=== PATIENT | male | born 1965 | race African-American/Black ===

== ENCOUNTER 2017-12-04 12:39 | Inpatient (IN) | payer MEDICARE, MEDICAID ==
[~2017-12-04] VITALS: Ht 180.3 cm; Wt 84.6 kg
[2017-12-04 13:30] VITALS: BP 122/80
[2017-12-04] MEDS ORDERED: NORVASC5 MG ORAL (14:48)
[2017-12-04] MEDS ORDERED: NORVASC10 MG ORAL (14:48)
[2017-12-04] MEDS ORDERED: LIPITOR80 MG ORAL (14:52)
[2017-12-04] MEDS ORDERED: ASPIRIN81 MG ORAL (14:52)
[2017-12-04] MEDS ORDERED: PRAVASTATIN SOD20 M1 ORAL (15:01)
[2017-12-04] MEDS ORDERED: LEXAPRO10 MG ORAL (15:01)
[2017-12-04] MEDS ORDERED: SENSIPAR30 MG ORAL (15:01)
[2017-12-04] MEDS ORDERED: ISOSORBIDE MONO30 M1 PO (15:01)
[2017-12-04] MEDS ORDERED: VELPHORO500 MG PO ×2 (15:01→15:19)
[2017-12-04] MEDS ORDERED: RENVELA0.8 GM ORAL (15:01)
[2017-12-04] MEDS ORDERED: NEOMYC-POLYM-DEX5 ML OP (15:01)
[2017-12-04] MEDS ORDERED: HYDRALAZINE HCL50 MG ORAL (15:01)
[2017-12-04] MEDS ORDERED: METOPROLOL TAR100 MG ORAL (15:01)
[2017-12-04] MEDS ORDERED: DIOVAN160 MG ORAL (15:01)
[2017-12-04] MEDS ORDERED: METOPROLOL SUC100 MG ORAL (15:01)
[2017-12-04] MEDS ORDERED: PROMETH-CODEIN 65 ML PO (15:10)
--- NOTE | 2017-12-04 15:14 | Infectious Diseases Prog Note ---
Assessment/Plan Problems: (1) Ulcer of amputation stump of foot Assessment & Plan: with pus draining suspect infection with possible underlying osteomyelitis, will order MRI of the right foot to confirm, and send wound draining for culture (2) 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 Assessment & Plan: with open wound draining purulent materials , and possible underlying osteomyelitis , will send wound culture and order MRI of the right foot to confirm, will start vancomycin and zosyn empiric coverage pending bridge expert eval and culture results (3) Sepsis Assessment & Plan: due to the above , efrain start vancomycin and zosyn empirically pending culture (4) ESRD (end stage renal disease) Assessment & Plan: continue HD as per renal Subjective Allergies: Coded Allergies: NO KNOWN ALLERGIES (Verified Allergy, Unknown, 12/04/17) Objective Vital Signs Last 24 Hour Vital Signs Date Time Temp Pulse Resp B/P (MAP) Pulse Ox O2 Delivery O2 Flow Rate FiO2 12/04/17 13:30 97.9 95 19 122/80 (94) 94 97.9 Cira Ceja M.D. Dec 04, 2017 15:14
[2017-12-04] MEDS ORDERED: Milk of Magnesia 30ml Ud ORAL PRN (15:15)
[2017-12-04] MEDS ORDERED: Miralax 17gm pkt ORAL PRN (15:15)
[2017-12-04] MEDS ORDERED: Nitroglycerin Subl 0.4mg tab SL PRN (15:15)
--- NOTE | 2017-12-04 15:15 | History & Physical ---
History and Physical History & Physicial Shahram Duong MD Dec 04, 2017 15:15
[2017-12-04 15:34] LABS: BASOPHILS % (AUTO) 0.9 % (0.0-2.0); EOSINOPHILS % (AUTO) 0.7 % (0.0-3.0); HEMATOCRIT 44.4 % (42.0-52.0); HEMOGLOBIN 14.5 G/DL (14.2-18.0); LYMPHOCYTES % (AUTO) 21.5 % (20.0-45.0); MEAN CORPUSCULAR VOLUME 97 FL (80-99); MONOCYTES % (AUTO) 9.3 % (1.0-10.0); NEUTROPHILS % (AUTO) 67.6 % (45.0-75.0); PLATELET COUNT 207 K/UL (150-450); RED BLOOD COUNT 4.58 M/UL (4.70-6.10); RED CELL DISTRIBUTION WIDTH 15.4 % (11.6-14.8); WHITE BLOOD COUNT 8.2 K/UL (4.8-10.8)
[2017-12-04 15:54] LABS: ALANINE AMINOTRANSFERASE 43 U/L (12-78); ALBUMIN 3.7 G/DL (3.4-5.0); ALBUMIN/GLOBULIN RATIO 0.6 (1.0-2.7); ALKALINE PHOSPHATASE 154 U/L (46-116); ANION GAP 14 mmol/L (5-15); ASPARTATE AMINO TRANSFERASE 28 U/L (15-37); BILIRUBIN,TOTAL 0.7 MG/DL (0.2-1.0); BLOOD UREA NITROGEN 48 mg/dL (7-18); CALCIUM 9.3 MG/DL (8.5-10.1); CARBON DIOXIDE 29 MMOL/L (21-32); CHLORIDE 91 MMOL/L (98-107); CREATININE 8.4 MG/DL (0.55-1.30); POTASSIUM 3.9 MMOL/L (3.5-5.1); SODIUM 134 MMOL/L (136-145)
[2017-12-04 16:00] VITALS: BP 113/78
--- NOTE | 2017-12-04 17:30 | Consultation ---
DATE OF CONSULTATION: 12/04/2017 INFECTIOUS DISEASE CONSULTATION CONSULTING PHYSICIAN: Cira Ceja M.D. REQUESTING PHYSICIAN: Shahram Duong M.D. REASON FOR CONSULTATION: Right foot stump wound ulcer with infection and pus draining, possible underlying osteomyelitis and sepsis. Recommendation for antibiotics treatment and further management. HISTORY OF PRESENT ILLNESS: The patient is a 52-year-old male with past medical history of diabetes type 2, poorly controlled, end-stage renal disease, on hemodialysis, gastritis, history of CVA, hemorrhagic esophagitis, and upper GI bleeding presented to [facility] with the right foot amputation stump wound ulcer draining pus with possible underlying osteomyelitis and sepsis. The patient was recently seen at [facility], unclear whether he received antibiotics treatment or not at that time, but he was transferred to [facility] for further care and evaluation since the patient was altered and febrile when he was admitted at [facility]. The patient today is more awake, alert and comprehensive, but he does not remember what happened and why he was taken to [facility] recently. He remember having fever, but denied any headache, blurry vision or neck stiffness. No cough or phlegm, but shortness of breath. No chest pain. No nausea, vomiting, or diarrhea. He has right foot stump wound, which has been draining pus like material. The patient was admitted to the hospital for further evaluation and Infectious Disease consult was requested for antibiotics treatment and further management for his right foot stump wound infection. PAST MEDICAL HISTORY: Significant for hemorrhagic esophagitis, history of CVA, gastritis, duodenitis, end-stage renal disease, on hemodialysis, diabetes type 2, and upper GI bleeding. PAST SURGICAL HISTORY: He had right arm AV fistula creation and history of right metatarsal foot amputation in 01/2015. ALLERGIES: He has no known drug allergy. MEDICATIONS: Prior to admission he has been on metoprolol, amlodipine, aspirin, cinacalcet, hydralazine, insulin glargine, insulin lispro, isosorbide mononitrate, pravastatin and sucroferric oxyhydroxide. SOCIAL HISTORY: He is single. Denied using any drugs, tobacco, or alcohol. He has 7 children. He is disabled. FAMILY HISTORY: Significant for diabetes in his father, mother and sister. Kidney failure in his mother. REVIEW OF SYSTEMS: A 14-point of system reviewed were all negative apart from the one I mentioned above in my History and Physical. PHYSICAL EXAMINATION: GENERAL: A middle-aged male, up in bed, awake, alert, oriented x2, not in acute distress. VITAL SIGNS: Temperature 97.9 degrees, pulse 95, respiration 19, blood pressure 122/80 and saturation 94% on room air. HEENT: Normocephalic and atraumatic. Pupils are reactive to light equally. Moist oral mucosa. No exudate or thrush. NECK: Supple. No lymphadenopathy. CARDIOVASCULAR: Regular rate and rhythm. No murmur or gallop. LUNGS: Clear bilaterally. No wheezing or rhonchi. Diminished breathing sounds at the bases. ABDOMEN: Soft, nontender, nondistended. Normal bowel sounds. No hepatosplenomegaly or ascites. EXTREMITY: He has right upper arm fistula with good pulsation. Left upper arm old surgical scar due to previous AV fistula in the past. Right foot metatarsal amputation with surgical wound stump open in the middle with an ulcer draining pus like material with local tenderness. LABORATORY AND DIAGNOSTIC DATA: Labs, currently not available. Images not available. ASSESSMENT AND RECOMMENDATION: 1. Ulcer of the right foot amputation stump with pus draining, suspect infection with possible underlying osteomyelitis of the metatarsal bone. We will order MRI of the right foot to confirm and send wound drainage for culture. We will start the patient on vancomycin and Zosyn empiric coverage. We will order sedimentation rate and C-reactive protein. 2. Infection of the amputation stump of the right lower extremity with open wound draining purulent materials with possible underlying osteomyelitis. We will send wound culture and order MRI of the right foot to confirm. We will start vancomycin and Zosyn empiric coverage pending bass viol repairer evaluation and culture result, may need incision and drainage or maybe more amputation if he has more damage in the bone. 3. Sepsis due to the above. We will start vancomycin and Zosyn empiric coverage pending culture. 4. End-stage renal disease. Continue hemodialysis as per Renal. 5. Diabetes. Recommend tight glycemic control to keep blood glucose between 100 to 140. Thank you for the consult. ID will continue to follow. Please feel free to call with any question. Cira Ceja M.D. DR: PIERRE JOB#: [id number] CC:
[2017-12-04] MEDS: NovoLOG Insulin Flexpen SUBQ SCH ×2 (17:57→20:40)
--- NOTE | 2017-12-04 19:45 | History and Physical Report ---
DATE OF ADMISSION: 12/04/2017 CHIEF COMPLAINT: Altered mental status. HISTORY OF PRESENT ILLNESS: This is a 52 years old, very delightful, gentleman with past medical history significant for poorly controlled diabetes type 2, history of osteomyelitis of the foot with transmetatarsal amputation of the right lower extremity, history of end-stage renal disease on hemodialysis, renal cell carcinoma, status post the left nephrectomy, and peripheral vascular disease, who presented to the hospital initially at [facility]. The patient was noted to be altered than usual. He is usually getting his dialysis Tuesday, , Tuesday and he was found to be weak and confused. He called his sister, Roshni around 3 o'clock in the morning. He stated that he was not feeling well. Her went to check on him at home and was noted to be apparently confused. Ambulance was called in and the patient was subsequently transferred to [facility]. Shortly after initial evaluation in the emergency, the patient had a CT of the head, was unremarkable. Chest x-ray was unremarkable. The patient received vancomycin and Zosyn and subsequently, the patient was treated for presumably sepsis and was transferred to the [facility] for further evaluation and therapy. PAST MEDICAL HISTORY/PAST SURGICAL HISTORY: As above. History of upper GI bleed on 01/13/2015, history of poorly diagnosed diabetes type 2 with end-stage renal disease, on hemodialysis, history of gastritis, duodenitis, H. pylori positive, prior history of stroke in 2011, hemorrhagic esophagitis, history of renal cell carcinoma, status post left nephrectomy, prior history of osteomyelitis of the foot with transmetatarsal amputation of the right foot. He has a history of osteomyelitis of the right fifth ray partial amputation, hypertension, dyslipidemia, and history of fistula creation on the right upper extremity. MEDICATIONS: The patient's medications at home significant for Toprol-XL, Norvasc, Ecotrin, Sensipar, hydralazine, Lantus insulin 20 units, Humalog insulin 8 units three times a day, Imdur one tablet daily, Atorvastatin 40 mg daily, and sucroferric oxyhydroxide 1000 mg three times a day. ALLERGIES: No known drug allergies. SOCIAL HISTORY: The patient is a former smoker, quit on 01/13/2015. No substance abuse, occasional marijuana, stopped in December 2014. FAMILY HISTORY: Including accidental in his daughter, diabetes in father, mother, and sister, kidney failure in mother. No other significant disease. REVIEW OF SYSTEMS: Very limited secondary to the patient's status. The patient is altered. However, denies any fever or chills. Denies any hematuria. Denies any hemoptysis. Denies any suicidal or homicidal ideation. Denies any double vision. PHYSICAL EXAMINATION: VITAL SIGNS: On admission from the [facility], blood pressure 122/89, pulse of 102, respirations 20, and temperature 98.9 degrees. GENERAL: The patient is awake, responsive at this time, very lethargic. He just received a dose of Ativan in the ER because he was very combative. HEAD AND NECK: Pupils are equal and reactive to light. Anicteric. Neck was supple. No JVD. LUNGS: Good air entry. No wheezing or rales. Poor inspiratory effort. HEART: S1 and S2. Distant heart sounds. No murmur or gallop. ABDOMEN: Soft, nondistended, and nontender. Positive bowel sounds. EXTREMITIES: No cyanosis, clubbing, or edema. Right upper extremity has AV fistula functional and right lower extremity has transmetatarsal amputation. No sign of infection or sore. NEUROLOGIC: Cranial nerves II through XII grossly intact. The patient moving all the extremities spontaneously. However, was not able to assess in depth because of the patient's status. Gait was not able to assess. LABORATORY AND DIAGNOSTIC DATA: On admission, WBC of 7.8, hemoglobin 14, hematocrit 44, and platelets 190,000. Sodium 131, potassium 4.0, chloride is 85, bicarbonate 25, BUN is 41, creatinine is 7.13, troponin is 0.08, glucose is 354, magnesium 2.3, calcium is 9.6, and lactic acid is 3.6. Alkaline phosphatase of 132 and ALT of 42. Total bilirubin of 0.8. Atenolol level of less than 10. The patient had a CT of the chest and head as per reading, undetectable. ASSESSMENT: 1. Altered mental status most likely secondary to the underlying infection. 2. Hyperglycemia. 3. Lactic acidosis. 4. End-stage renal disease, on hemodialysis. 5. Hypertension. 6. Diabetes type 2, uncontrolled. 7. Diabetic nephropathy. 8. Diabetic polyneuropathy. 9. Severe peripheral vascular disease. 10. History of hypertensive urgency. PLAN: Admit the patient to telemetry. We will follow up with the laboratory. The patient is mildly dehydrated, already received 500 mL of fluid at the [facility]. We will follow up with the cultures. Broad-spectrum antibiotics with vancomycin and the patient has already received Zosyn. We will follow up with the Infectious Diseases consultation, Dr. Ceja, Nephrology consultation, Dr. Tessa Schwartz, Cardiology consultation with Dr. Lizandro Falcon, and the Pulmonary consultation with Dr. Anaya. We will follow up with the Podiatry consultation with Dr. Lane. Code status Full Code. DVT prophylaxis. Heparin subcutaneous. Shahram Duong M.D. DR: Elba JOB#: [id number] CC:
[2017-12-04 20:00] VITALS: BP 117/60
[2017-12-04] MEDS: Docusate 100mg cap ORAL SCH (20:36)
[2017-12-04] MEDS ORDERED: Levemir Flexpen SUBQ SCH (21:00)
[2017-12-04] MEDS: Piperacillin/Tazobactam 2.25 GM in D5W 55 ML IVPB SCH (21:44)
[2017-12-04] MEDS: Heparin 5000 units/ml inj SUBQ SCH (21:44)
--- NOTE | 2017-12-04 21:44 | Nephrology Progress Note ---
Assessment/Plan Plan dialysis and necessary lab was order thanks Objective Objective Last 24 Hour Vital Signs Date Time Temp Pulse Resp B/P (MAP) Pulse Ox O2 Delivery O2 Flow Rate FiO2 12/04/17 20:36 106 117/60 12/04/17 16:00 105 12/04/17 16:00 97.7 105 18 113/78 (90) 100 97.7 12/04/17 14:41 Room Air 12/04/17 13:30 97.9 95 19 122/80 (94) 94 97.9 Laboratory Tests 12/04/17 15:15: White Blood Count 8.2, Red Blood Count 4.58L, Hemoglobin 14.5, Hematocrit 44.4, Mean Corpuscular Volume 97, Mean Corpuscular Hemoglobin 31.7H, Mean Corpuscular Hemoglobin Concent 32.7, Red Cell Distribution Width 15.4H, Platelet Count 207, Mean Platelet Volume 7.3, Neutrophils (%) (Auto) 67.6, Lymphocytes (%) (Auto) 21.5, Monocytes (%) (Auto) 9.3, Eosinophils (%) (Auto) 0.7, Basophils (%) (Auto ) 0.9, Erythrocyte Sedimentation Rate 32H, Sodium Level 134L, Potassium Level 3.9, Chloride Level 91L, Carbon Dioxide Level 29, Anion Gap 14, Blood Urea Nitrogen 48H, Creatinine 8.4H, Estimat Glomerular Filtration Rate 8.2, Glucose Level 236H, Calcium Level 9.3, Total Bilirubin 0.7, Aspartate Amino Transf (AST/ SGOT) 28, Alanine Aminotransferase (ALT/SGPT) 43, Alkaline Phosphatase 154H, C- Reactive Protein, Quantitative 2.8H, Total Protein 9.6H, Albumin 3.7, Globulin 5.9, Albumin/Globulin Ratio 0.6L Height (Feet): 5 Height (Inches): 11.00 Weight (Pounds): 182 Tessa Schwartz MD Dec 04, 2017 21:44
--- NOTE | 2017-12-04 23:45 | Consultation ---
DATE OF CONSULTATION: 12/04/2017 NEPHROLOGY CONSULTATION CONSULTING PHYSICIAN: Tessa Schwartz M.D. REFERRING PHYSICIAN: Shahram Duong M.D. REASON FOR CONSULTATION: End-stage renal disease, need for dialysis. HISTORY OF PRESENT ILLNESS: The patient is a 52-year-old male with past medical history significant for history of end-stage renal disease, anemia of chronic kidney disease, renal osteodystrophy, hypertension, diabetes, diabetic neuropathy, peripheral vascular disease, status post transmetatarsal amputation of the right lower extremity, and history of renal cell carcinoma, status post left nephrectomy. He was presented originally to [facility] for altered mental status. Also, the patient was found to be confused, weak, and also found to have drainage of the foot stump with drainage of the pus from the foot stump. He was taken to [place], started on broad-spectrum antibiotic. The patient also had a CT of the head, which was negative. The patient was consequently admitted for further evaluation and treatment at [facility]. I was called for management of renal disease and electrolyte imbalance. PAST MEDICAL HISTORY: Includin. End-stage renal disease. 2. Anemia of chronic kidney disease. 3. Renal osteodystrophy. 4. History of gastritis and GI bleed in 2014. 5. History of renal cell carcinoma, status post left nephrectomy. 6. History of osteomyelitis of the fourth metatarsal. 7. History of transmetatarsal amputation of the right foot. 8. History of partial amputation of the fifth toe. 9. History of hypertension. 10. History of dyslipidemia. 11. History of CVA. 12. History of fistula placement. 13. History of catheter placement. MEDICATIONS: At home are includin. Toprol-XL. 2. Norvasc. 3. Aspirin. 4. Sensipar. 5. Hydralazine. 6. Insulin. 7. Atorvastatin 40 mg daily. 8. Iron sulfate daily. ALLERGIES: No known drug allergies. SOCIAL HISTORY: Former smoker, quit in 2014. There is no current history of drug or alcohol use. FAMILY HISTORY: Diabetes in mother, father, and sister. History of kidney failure in the mother. REVIEW OF SYSTEMS: GENERAL: The patient with fever noted prior to hospital visit. No chills. No night sweats. HEAD AND NECK: No dysphagia, odynophagia, or blurry vision. PULMONARY: No shortness of breath was noted or cough. CARDIOVASCULAR: No palpitation or chest pain. GASTROINTESTINAL: No nausea. No vomiting. GENITOURINARY: No dysuria, frequency, or hematuria. PHYSICAL EXAMINATION: VITAL SIGNS: The patient had temperature of 98 degrees, blood pressure 122/89, pulse rate of 102, respiratory rate of 20. HEAD AND NECK: No JVP. No LAD. No thyromegaly. Extraocular movement intact. Pupils are reactive to light and accommodation. LUNGS: Clear to auscultation. CARDIAC: Regular rate and rhythm. S1 and S2. No murmur. No rub. ABDOMEN: Soft, nontender, and nondistended. EXTREMITIES: The patient on the right has transmetatarsal amputation. LABORATORY AND DIAGNOSTIC DATA: Laboratory value on admission, the patient has WBC count of 7.1, hemoglobin 14, hematocrit of 44, and platelet count of 190,000. Chemistry revealed sodium 131, potassium 4, chloride 85, bicarbonate 25, BUN 41, creatinine of 7. Troponin is negative. CT of the head was negative. ASSESSMENT: 1. Altered mental status. 2. End-stage renal disease. 3. Anemia of chronic kidney disease. 4. Renal osteodystrophy. 5. Hypertension, well controlled. 6. Diabetes. PLAN: Plan for this patient is to dialyze the patient on Tuesday. The patient at this time does need Epogen and Epogen needs to be hold off due to hemoglobin being . We will need to check calcium, phosphorus, PTH level for evaluation of renal osteodystrophy monitoring the patient closely. Again, I would like to thank Dr. Duong for allowing me to participate in the care of this patient. Tessa Schwartz M.D. DR: Clifford JOB#: [id number] CC:
[2017-12-05] VITALS: BP 112/71
[2017-12-05 04:00] VITALS: BP 98/66
[2017-12-05] MEDS: Piperacillin/Tazobactam 2.25 GM in D5W 55 ML IVPB SCH ×3 (05:30→21:27)
[2017-12-05] MEDS: NovoLOG Insulin Flexpen SUBQ SCH ×4 (05:51→21:17)
[2017-12-05] MEDS: Heparin 5000 units/ml inj SUBQ SCH ×3 (05:51→21:26)
[2017-12-05 08:00] VITALS: BP 92/53
[2017-12-05] MEDS ORDERED: Imdur 30mg tab ORAL SCH (09:00)
[2017-12-05] MEDS ORDERED: Aspirin Baby 81mg ORAL SCH (09:00)
[2017-12-05] MEDS ORDERED: Sensipar 30mg Tab ORAL SCH (09:00)
[2017-12-05 09:23] LABS: PHOSPHORUS 6.9 MG/DL (2.5-4.9)
[2017-12-05] MEDS: Docusate 100mg cap ORAL SCH ×2 (09:37→21:00)
--- NOTE | 2017-12-05 11:02 | Consultation ---
History of Present Illness General Date patient seen: Dec 05, 2017 Present Illness HPI 52 year old male with hx of ESRF, Right foot partial amputation, DM, was taken to [facility] with CC of ALOC, an acute CVA was ruled out and pt was transferred to [facility] for further management. Pt has a wound on the stump of right foot with puss drainage. A MRI is taken to rule out osteomyelitis. Pt is asymptomatic now. Allergies: Coded Allergies: NO KNOWN ALLERGIES (Verified Allergy, Unknown, 12/04/17) Medication History Scheduled Amlodipine Besylate (Norvasc), 5 MG ORAL DAILY, (Reported) Amlodipine Besylate (Norvasc), 10 MG ORAL DAILY, (Reported) Aspirin* (Aspirin*), 81 MG ORAL DAILY, (Reported) Atorvastatin (Lipitor), 10 MG ORAL BEDTIME, (Reported) Escitalopram Oxalate* (Lexapro*), 10 MG ORAL DAILY, (Reported) Hydralazine Hcl* (Hydralazine Hcl*), 50 MG ORAL EVERY 8 HOURS, (Reported) Metoprolol Succinate* (Metoprolol Succinate*), 200 MG ORAL DAILY, (Reported) Metoprolol Tartrate* (Metoprolol Tartrate*), 100 MG ORAL EVERY 12 HOURS, ( Reported) Pravastatin Sod* (Pravastatin Sod*), 40 MG ORAL BEDTIME, (Reported) Sevelamer Carbonate* (Renvela*), 800 MG ORAL THREE TIMES A DAY, (Reported) Valsartan (Diovan), 160 MG ORAL DAILY, (Reported) Miscellaneous Medications Isosorbide Mononitrate (Isosorbide Mononitrate Er), 30 MG PO, (Reported) Robinson/Polymyx B Sulf/Dexameth (Zboscf-Nmrlp-Xmtrhzgc Eye Drop), 3.5 ML OP, ( Reported) Promethazine HCl/Codeine (Prometh-Codein 6.25-10 mg/5 ml), 5 ML PO, (Reported) Sucroferric Oxyhydroxide (Velphoro), 500 MG PO, (Reported) Sucroferric Oxyhydroxide (Velphoro), 500 MG PO, (Reported) Patient History Healthcare decision maker Roshni Pagan Resuscitation status Full Code Advanced Directive on File Roshni Pagan Past Medical/Surgical History Past Medical/Surgical History: (1) ESRD (end stage renal disease) (2) Ulcer of amputation stump of foot Review of Systems All Other Systems: negative except mentioned in HPI Physical Exam General Appearance: WD/WN Lines, tubes and drains: peripheral HEENT: normocephalic Neck: non-tender, normal alignment Respiratory/Chest: chest wall non-tender, lungs clear Cardiovascular/Chest: normal peripheral pulses, normal rate Abdomen: normal bowel sounds, non tender Extremities: normal range of motion Skin Exam: normal pigmentation 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 Last 24 Hour Vital Signs Date Time Temp Pulse Resp B/P (MAP) Pulse Ox O2 Delivery O2 Flow Rate FiO2 12/05/17 09:00 Room Air 12/05/17 08:50 82 92/53 12/05/17 08:50 92/53 12/05/17 08:50 82 92/53 12/05/17 08:00 97.5 82 18 92/53 (66) 97 97.5 12/05/17 08:00 81 12/05/17 04:01 76 12/05/17 04:00 97.2 74 20 98/66 (77) 100 97.2 12/05/17 00:00 98.4 90 20 112/71 (85) 100 98.4 12/04/17 23:34 89 12/04/17 21:00 Room Air 12/04/17 20:36 106 117/60 12/04/17 20:00 98.1 106 20 117/60 (79) 96 98.1 12/04/17 19:04 110 12/04/17 16:00 105 12/04/17 16:00 97.7 105 18 113/78 (90) 100 97.7 12/04/17 14:41 Room Air 12/04/17 13:30 97.9 95 19 122/80 (94) 94 97.9 Intake and Output 12/04/17 12/05/17 19:00 07:00 Intake Total 240 ml 120 ml Output Total 0 ml 0 ml Balance 240 ml 120 ml Intake Oral 240 ml 120 ml Output Urine Total 0 ml 0 ml Laboratory Tests Test 12/04/17 15:15 12/05/17 07:15 White Blood Count 8.2 K/UL (4.8-10.8) Red Blood Count 4.58 M/UL (4.70-6.10) L Hemoglobin 14.5 G/DL (14.2-18.0) Hematocrit 44.4 % (42.0-52.0) Mean Corpuscular Volume 97 FL (80-99) Mean Corpuscular Hemoglobin 31.7 PG (27.0-31.0) H Mean Corpuscular Hemoglobin Concent 32.7 G/DL (32.0-36.0) Red Cell Distribution Width 15.4 % (11.6-14.8) H Platelet Count 207 K/UL (150-450) Mean Platelet Volume 7.3 FL (6.5-10.1) Neutrophils (%) (Auto) 67.6 % (45.0-75.0) Lymphocytes (%) (Auto) 21.5 % (20.0-45.0) Monocytes (%) (Auto) 9.3 % (1.0-10.0) Eosinophils (%) (Auto) 0.7 % (0.0-3.0) Basophils (%) (Auto) 0.9 % (0.0-2.0) Erythrocyte Sedimentation Rate 32 MM/HR (0-15) H Sodium Level 134 MMOL/L (136-145) L Potassium Level 3.9 MMOL/L (3.5-5.1) Chloride Level 91 MMOL/L (98-107) L Carbon Dioxide Level 29 MMOL/L (21-32) Anion Gap 14 mmol/L (5-15) Blood Urea Nitrogen 48 mg/dL (7-18) H Creatinine 8.4 MG/DL (0.55-1.30) H Estimat Glomerular Filtration Rate 8.2 mL/min (>60) Glucose Level 236 MG/DL (74-106) H Calcium Level 9.3 MG/DL (8.5-10.1) Total Bilirubin 0.7 MG/DL (0.2-1.0) Aspartate Amino Transf (AST/SGOT) 28 U/L (15-37) Alanine Aminotransferase (ALT/SGPT) 43 U/L (12-78) Alkaline Phosphatase 154 U/L (46-116) H C-Reactive Protein, Quantitative 2.8 mg/dL (0.00-0.90) H Total Protein 9.6 G/DL (6.4-8.2) H Albumin 3.7 G/DL (3.4-5.0) Globulin 5.9 g/dL Albumin/Globulin Ratio 0.6 (1.0-2.7) L Phosphorus Level 6.9 MG/DL (2.5-4.9) H Magnesium Level 2.4 MG/DL (1.8-2.4) Random Vancomycin Level 21.9 ug/mL Height (Feet): 5 Height (Inches): 11.00 Weight (Pounds): 182 Medications Current Medications Medications (Trade) Dose Ordered Sig/Felix Route PRN Reason Start Time Stop Time Status Last Admin Dose Admin Acetaminophen (Tylenol) 650 mg Q4H PRN ORAL Mild Pain (Pain Scale 1-3) 12/04/17 15:15 01/03/18 15:14 Acetaminophen (Tylenol) 650 mg Q4H PRN ORAL fever (temp>100.5F) 12/04/17 15:15 01/03/18 15:14 Amlodipine Besylate (Norvasc) 5 mg DAILY ORAL 12/05/17 09:00 01/04/18 08:59 Aspirin (ASA) 81 mg DAILY ORAL 12/05/17 09:00 01/04/18 08:59 12/05/17 09:37 Atorvastatin Calcium (Lipitor) 10 mg BEDTIME ORAL 12/04/17 21:00 01/03/18 20:59 12/04/17 20:36 Cinacalcet (Sensipar) 30 mg DAILY ORAL 12/05/17 09:00 01/04/18 08:59 12/05/17 09:37 Dextrose (Dextrose 50%) 25 ml Q1H PRN IV Hypoglycemia 12/04/17 15:15 01/03/18 15:14 Dextrose (Dextrose 50%) 50 ml Q1H PRN IV Hypoglycemia 12/04/17 15:15 01/03/18 15:14 Docusate Sodium (Colace) 100 mg EVERY 12 HOURS ORAL 12/04/17 21:00 01/03/18 20:59 12/05/17 09:37 Escitalopram Oxalate (Lexapro) 10 mg DAILY ORAL 12/05/17 09:00 01/04/18 08:59 12/05/17 09:37 Heparin Sodium (Porcine) (Heparin 5000 units/ml) 5,000 units EVERY 8 HOURS SUBQ 12/04/17 22:00 01/03/18 21:59 12/05/17 05:51 Insulin Aspart (NovoLOG) BEFORE MEALS AND HS SUBQ 12/04/17 18:00 01/03/18 17:59 12/05/17 05:51 Insulin Detemir (Levemir) 10 units BEDTIME SUBQ 12/04/17 21:00 01/03/18 20:59 12/04/17 20:41 Isosorbide Mononitrate (Imdur) 30 mg DAILY ORAL 12/05/17 09:00 01/04/18 08:59 Metoprolol Tartrate (Lopressor) 100 mg EVERY 12 HOURS ORAL 12/04/17 21:00 01/03/18 20:59 12/04/17 20:36 Nitroglycerin (Ntg) 0.4 mg Q5M PRN SL Prn Chest Pain 12/04/17 15:15 01/03/18 15:14 Ondansetron HCl (Zofran) 4 mg Q6H PRN IVP Nausea & Vomiting 12/04/17 15:15 01/03/18 15:14 Piperacillin Sod/ Tazobactam Sod 2.25 gm/Dextrose 55 ml @ 110 mls/hr Q8HR IVPB 12/04/17 22:00 12/09/17 21:59 12/05/17 05:30 Polyethylene Glycol (Miralax) 17 gm DAILYPRN PRN ORAL Constipation 12/04/17 15:15 01/03/18 15:14 Sevelamer Carbonate (Renvela) 800 mg THREE TIMES A DAY ORAL 12/04/17 18:00 01/03/18 17:59 12/05/17 09:37 Vancomycin HCl (Vanco rx to dose) 1 ea DAILY PRN MISC Per rx protocol 12/04/17 15:15 01/03/18 15:14 Vancomycin HCl/ Dextrose 250 ml @ 166.667 mls/hr ONCE IVPB 12/05/17 13:00 12/05/17 14:30 Assessment/Plan Problem List: (1) Sepsis ICD Codes: A41.9 - Sepsis, unspecified organism SNOMED: 97176633 (2) 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 ICD Codes: T87.43 - Infection of amputation stump, right lower extremity SNOMED: 836035869, 741587536 (3) Diabetes mellitus ICD Codes: E11.9 - Type 2 diabetes mellitus without complications SNOMED: 03513465 (4) ESRD (end stage renal disease) ICD Codes: N18.6 - End stage renal disease SNOMED: 03850312 Assessment/Plan wound cultures wound care check MRI of the foot HD by manager fixed income Echo to rule out cardiac cause of syncope US of carotid artery. dvt prophylaxis. Jorge Anaya MD Dec 05, 2017 11:02
[2017-12-05] MEDS ORDERED: Minoxidil 2.5mg tab ORAL PRN ×2 (11:15→18:00)
[2017-12-05 11:55] VITALS: BP 121/73
--- NOTE | 2017-12-05 12:44 | Consultation ---
Consult Note Assessment/Plan A/ 1) Right foot stump wound s/p TMA 2) DFU 3) DM neuropathy 4) h/o PAD 5) ESRD P/ 1) Orders: wound care, arterial ultz BLE 2) Pending: Cultures, MRI right foot 3) Cont abx per ID 4) No surgical intervention indicated at this time. Thank you Landon Min DPM Dec 05, 2017 12:44
[2017-12-05] MEDS ORDERED: Vancomycin 1250mg/D5W 250ml IVPB SCH (13:00)
--- NOTE | 2017-12-05 13:01 | Diagnostic Imaging Report ---
Indication: Cough Technique: XRAY Chest 1v Comparison: None FINDINGS/IMPRESSION: Heart size and mediastinal contours are within normal limits for AP technique. There is no focal airspace consolidation. Costophrenic sulci are sharp. No evidence of pneumothorax. No acute osseous abnormality.
[2017-12-05 16:15] VITALS: BP 95/55
--- NOTE | 2017-12-05 16:29 | Infectious Diseases Prog Note ---
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 (3) Sepsis Assessment & Plan: due to the above , continue vancomycin and zosyn empirically pending culture (4) ESRD (end stage renal disease) Assessment & Plan: continue HD as per renal Subjective Constitutional: Reports: no symptoms HEENT: Reports: no symptoms Respiratory: Reports: no symptoms Breasts: Reports: no symptoms Cardiovascular: Reports: no symptoms Gastrointestinal/Abdominal: Reports: no symptoms Genitourinary: Reports: no symptoms Neurologic: Reports: no symptoms Psychiatric: Reports: no symptoms Skin: Reports: no symptoms Endocrine: Reports: no symptoms Hematologic: Reports: no symptoms Musculoskeletal: Reports: no symptoms Allergies: Coded Allergies: NO KNOWN ALLERGIES (Verified Allergy, Unknown, 12/04/17) Objective Vital Signs Last 24 Hour Vital Signs Date Time Temp Pulse Resp B/P (MAP) Pulse Ox O2 Delivery O2 Flow Rate FiO2 12/05/17 16:15 97.9 81 20 95/55 (68) 99 97.9 12/05/17 12:00 78 12/05/17 11:55 97.7 83 18 121/73 (89) 100 97.7 12/05/17 09:00 Room Air 12/05/17 08:50 82 92/53 12/05/17 08:50 92/53 12/05/17 08:50 82 92/53 12/05/17 08:00 97.5 82 18 92/53 (66) 97 97.5 12/05/17 08:00 81 12/05/17 04:01 76 12/05/17 04:00 97.2 74 20 98/66 (77) 100 97.2 12/05/17 00:00 98.4 90 20 112/71 (85) 100 98.4 12/04/17 23:34 89 12/04/17 21:00 Room Air 12/04/17 20:36 106 117/60 12/04/17 20:00 98.1 106 20 117/60 (79) 96 98.1 12/04/17 19:04 110 Height (Feet): 5 Height (Inches): 11.00 Weight (Pounds): 182 General Appearance: WD/WN, no acute distress HEENT: normocephalic, atraumatic, anicteric, mucous membranes moist, PERRL, supple, no JVD Respiratory/Chest: chest wall non-tender, lungs clear, normal breath sounds, no respiratory distress, no accessory muscle use Cardiovascular: normal peripheral pulses, normal rate, regular rhythm, no gallop/murmur, no JVD Abdomen: normal bowel sounds, soft, non tender, no organomegaly, non distended , no mass, no scars Extremities: no cyanosis, no clubbing, other - right foot stump wound with purulent materials Skin: no rash, no lesions, ulcers Neurologic/Psychiatric: alert, oriented x 3, responsive Lymphatic: no neck adenopathy, no groin adenopathy Microbiology Date/Time Source Procedure Growth Status 12/04/17 15:03 Wound Gram Stain - Final Resulted 12/04/17 15:03 Wound Wound Culture Pending Resulted Laboratory Tests Test 12/05/17 07:15 Phosphorus Level 6.9 MG/DL (2.5-4.9) H Magnesium Level 2.4 MG/DL (1.8-2.4) Random Vancomycin Level 21.9 ug/mL Current Medications Medications (Trade) Dose Ordered Sig/Felix Route PRN Reason Start Time Stop Time Status Last Admin Dose Admin Acetaminophen (Tylenol) 650 mg Q4H PRN ORAL Mild Pain (Pain Scale 1-3) 12/04/17 15:15 01/03/18 15:14 Acetaminophen (Tylenol) 650 mg Q4H PRN ORAL fever (temp>100.5F) 12/04/17 15:15 01/03/18 15:14 Aspirin (ASA) 81 mg DAILY ORAL 12/05/17 09:00 01/04/18 08:59 12/05/17 09:37 Atorvastatin Calcium (Lipitor) 10 mg BEDTIME ORAL 12/04/17 21:00 01/03/18 20:59 12/04/17 20:36 Cinacalcet (Sensipar) 30 mg DAILY ORAL 12/05/17 09:00 01/04/18 08:59 12/05/17 09:37 Dextrose (Dextrose 50%) 25 ml Q1H PRN IV Hypoglycemia 12/04/17 15:15 01/03/18 15:14 Dextrose (Dextrose 50%) 50 ml Q1H PRN IV Hypoglycemia 12/04/17 15:15 01/03/18 15:14 Docusate Sodium (Colace) 100 mg EVERY 12 HOURS ORAL 12/04/17 21:00 01/03/18 20:59 12/05/17 09:37 Escitalopram Oxalate (Lexapro) 10 mg DAILY ORAL 12/05/17 09:00 01/04/18 08:59 12/05/17 09:37 Heparin Sodium (Porcine) (Heparin 5000 units/ml) 5,000 units EVERY 8 HOURS SUBQ 12/04/17 22:00 01/03/18 21:59 12/05/17 05:51 Insulin Aspart (NovoLOG) BEFORE MEALS AND HS SUBQ 12/04/17 18:00 01/03/18 17:59 12/05/17 12:03 Insulin Detemir (Levemir) 10 units BEDTIME SUBQ 12/04/17 21:00 01/03/18 20:59 12/04/17 20:41 Isosorbide Mononitrate (Imdur) 30 mg DAILY ORAL 12/05/17 09:00 01/04/18 08:59 Minoxidil (Loniten) 2.5 mg Q6H PRN ORAL sbp >160 12/05/17 11:15 01/04/18 11:14 Nitroglycerin (Ntg) 0.4 mg Q5M PRN SL Prn Chest Pain 12/04/17 15:15 01/03/18 15:14 Ondansetron HCl (Zofran) 4 mg Q6H PRN IVP Nausea & Vomiting 12/04/17 15:15 01/03/18 15:14 Piperacillin Sod/ Tazobactam Sod 2.25 gm/Dextrose 55 ml @ 110 mls/hr Q8HR IVPB 12/04/17 22:00 12/09/17 21:59 12/05/17 05:30 Polyethylene Glycol (Miralax) 17 gm DAILYPRN PRN ORAL Constipation 12/04/17 15:15 01/03/18 15:14 Sevelamer Carbonate (Renvela) 800 mg THREE TIMES A DAY ORAL 12/04/17 18:00 01/03/18 17:59 12/05/17 13:22 Vancomycin HCl (Vanco rx to dose) 1 ea DAILY PRN MISC Per rx protocol 12/04/17 15:15 01/03/18 15:14 Cira Ceja M.D. Dec 05, 2017 16:29
--- NOTE | 2017-12-05 16:58 | Internal Med Progress Note ---
Subjective Physician Name Shahram Duong Attending Physician Shahram Duong MD Current Medications Medications (Trade) Dose Ordered Sig/Felix Route PRN Reason Start Time Stop Time Status Last Admin Dose Admin Acetaminophen (Tylenol) 650 mg Q4H PRN ORAL Mild Pain (Pain Scale 1-3) 12/04/17 15:15 01/03/18 15:14 Acetaminophen (Tylenol) 650 mg Q4H PRN ORAL fever (temp>100.5F) 12/04/17 15:15 01/03/18 15:14 Aspirin (ASA) 81 mg DAILY ORAL 12/05/17 09:00 01/04/18 08:59 12/05/17 09:37 Atorvastatin Calcium (Lipitor) 10 mg BEDTIME ORAL 12/04/17 21:00 01/03/18 20:59 12/04/17 20:36 Cinacalcet (Sensipar) 30 mg DAILY ORAL 12/05/17 09:00 01/04/18 08:59 12/05/17 09:37 Dextrose (Dextrose 50%) 25 ml Q1H PRN IV Hypoglycemia 12/04/17 15:15 01/03/18 15:14 Dextrose (Dextrose 50%) 50 ml Q1H PRN IV Hypoglycemia 12/04/17 15:15 01/03/18 15:14 Docusate Sodium (Colace) 100 mg EVERY 12 HOURS ORAL 12/04/17 21:00 01/03/18 20:59 12/05/17 09:37 Escitalopram Oxalate (Lexapro) 10 mg DAILY ORAL 12/05/17 09:00 01/04/18 08:59 12/05/17 09:37 Heparin Sodium (Porcine) (Heparin 5000 units/ml) 5,000 units EVERY 8 HOURS SUBQ 12/04/17 22:00 01/03/18 21:59 12/05/17 16:40 Insulin Aspart (NovoLOG) BEFORE MEALS AND HS SUBQ 12/04/17 18:00 01/03/18 17:59 12/05/17 16:42 Insulin Detemir (Levemir) 10 units BEDTIME SUBQ 12/04/17 21:00 01/03/18 20:59 12/04/17 20:41 Isosorbide Mononitrate (Imdur) 30 mg DAILY ORAL 12/05/17 09:00 01/04/18 08:59 Minoxidil (Loniten) 2.5 mg Q6H PRN ORAL sbp >160 12/05/17 11:15 01/04/18 11:14 Nitroglycerin (Ntg) 0.4 mg Q5M PRN SL Prn Chest Pain 12/04/17 15:15 01/03/18 15:14 Ondansetron HCl (Zofran) 4 mg Q6H PRN IVP Nausea & Vomiting 12/04/17 15:15 01/03/18 15:14 Piperacillin Sod/ Tazobactam Sod 2.25 gm/Dextrose 55 ml @ 110 mls/hr Q8HR IVPB 12/04/17 22:00 12/09/17 21:59 12/05/17 16:38 Polyethylene Glycol (Miralax) 17 gm DAILYPRN PRN ORAL Constipation 12/04/17 15:15 01/03/18 15:14 Sevelamer Carbonate (Renvela) 800 mg THREE TIMES A DAY ORAL 12/04/17 18:00 01/03/18 17:59 12/05/17 13:22 Vancomycin HCl (Vanco rx to dose) 1 ea DAILY PRN MISC Per rx protocol 12/04/17 15:15 01/03/18 15:14 Allergies: Coded Allergies: NO KNOWN ALLERGIES (Verified Allergy, Unknown, 12/04/17) Subjective awake, alert, responsive, NAD Objective Last Vital Signs Date Time Temp Pulse Resp B/P (MAP) Pulse Ox O2 Delivery O2 Flow Rate FiO2 12/05/17 16:15 97.9 81 20 95/55 (68) 99 97.9 12/05/17 09:00 Room Air Laboratory Tests Test 12/05/17 07:15 Phosphorus Level 6.9 MG/DL (2.5-4.9) H Magnesium Level 2.4 MG/DL (1.8-2.4) Random Vancomycin Level 21.9 ug/mL Microbiology Date/Time Source Procedure Growth Status 12/04/17 15:03 Wound Gram Stain - Final Resulted 12/04/17 15:03 Wound Wound Culture Pending Resulted Intake and Output 12/04/17 12/05/17 19:00 07:00 Intake Total 240 ml 120 ml Output Total 0 ml 0 ml Balance 240 ml 120 ml Intake Oral 240 ml 120 ml Output Urine Total 0 ml 0 ml Objective GENERAL: The patient is awake, responsive, alert HEAD AND NECK: Pupils are equal and reactive to light. Anicteric. Neck was supple. No JVD. LUNGS: Good air entry. No wheezing or rales. Fair inspiratory effort. HEART: S1 and S2. Distant heart sounds. No murmur. ABDOMEN: Soft, nondistended, and nontender. Positive bowel sounds. EXTREMITIES: No cyanosis, clubbing, or edema. Right upper extremity has AV fistula functional and right lower extremity has transmetatarsal amputation / dressing. NEUROLOGIC: Cranial nerves II through XII grossly intact. Motor intact in all extremities. Assessment/Plan Assessment/Plan ASSESSMENT: 1. Altered mental status most likely secondary to the Toxic metabolic encephalopathy due to underlying infection. 2. Hyperglycemia. 3. Lactic acidosis. 4. End-stage renal disease, on hemodialysis. 5. Hypertension. 6. Diabetes type 2, uncontrolled. 7. Diabetic nephropathy. 8. Diabetic polyneuropathy. 9. Severe peripheral vascular disease. 10. Infected right stump possible osteomyelitis Plan: Dialysis F/U with labs and cultures DC Telemetry Abx: Vanco IV and Zosyn MRI of Right foot. Shahram Duong MD Dec 05, 2017 16:58
[2017-12-05] MEDS ORDERED: Nitroglycerin Subl 0.4mg tab SL PRN (17:45)
[2017-12-05] MEDS ORDERED: Miralax 17gm pkt ORAL PRN (18:00)
--- NOTE | 2017-12-05 18:32 | Nephrology Progress Note ---
Assessment/Plan Assessment 1. Altered mental status. 2. End-stage renal disease. 3. Anemia of chronic kidney disease. 4. Renal osteodystrophy. 5. Hypertension, well controlled. 6. Diabetes. Plan dialysis as schedule check phos and PTH continue epoen continue antibiotic Subjective Constitutional: Reports: no symptoms HEENT: Reports: no symptoms Genitourinary: Reports: no symptoms Neurologic/Psychiatric: Reports: no symptoms Subjective alert and awake no complaints Objective Objective Last 24 Hour Vital Signs Date Time Temp Pulse Resp B/P (MAP) Pulse Ox O2 Delivery O2 Flow Rate FiO2 12/05/17 16:15 97.9 81 20 95/55 (68) 99 97.9 12/05/17 16:00 84 12/05/17 12:00 78 12/05/17 11:55 97.7 83 18 121/73 (89) 100 97.7 12/05/17 09:00 Room Air 12/05/17 08:50 82 92/53 12/05/17 08:50 92/53 12/05/17 08:50 82 92/53 12/05/17 08:00 97.5 82 18 92/53 (66) 97 97.5 12/05/17 08:00 81 12/05/17 04:01 76 12/05/17 04:00 97.2 74 20 98/66 (77) 100 97.2 12/05/17 00:00 98.4 90 20 112/71 (85) 100 98.4 12/04/17 23:34 89 12/04/17 21:00 Room Air 12/04/17 20:36 106 117/60 12/04/17 20:00 98.1 106 20 117/60 (79) 96 98.1 12/04/17 19:04 110 Intake and Output 12/04/17 12/05/17 19:00 07:00 Intake Total 240 ml 120 ml Output Total 0 ml 0 ml Balance 240 ml 120 ml Intake Oral 240 ml 120 ml Output Urine Total 0 ml 0 ml Laboratory Tests 12/05/17 07:15: Phosphorus Level 6.9H, Magnesium Level 2.4, Random Vancomycin Level 21.9 Height (Feet): 5 Height (Inches): 11.00 Weight (Pounds): 182 Objective HEAD AND NECK: No JVP. No LAD. No thyromegaly. Extraocular movement intact. Pupils are reactive to light and accommodation. LUNGS: Clear to auscultation. CARDIAC: Regular rate and rhythm. S1 and S2. No murmur. No rub. ABDOMEN: Soft, nontender, and nondistended. EXTREMITIES: The patient on the right has transmetatarsal amputation. Tessa Schwartz MD Dec 05, 2017 18:32
--- NOTE | 2017-12-05 19:31 | Cardiology Progress Note ---
Assessment/Plan Assessment/Plan The patient is seen and examined, full consult note will be dictated shortly. Objective Last 24 Hour Vital Signs Date Time Temp Pulse Resp B/P (MAP) Pulse Ox O2 Delivery O2 Flow Rate FiO2 12/05/17 16:15 97.9 81 20 95/55 (68) 99 97.9 12/05/17 16:00 84 12/05/17 12:00 78 12/05/17 11:55 97.7 83 18 121/73 (89) 100 97.7 12/05/17 09:00 Room Air 12/05/17 08:50 82 92/53 12/05/17 08:50 92/53 12/05/17 08:50 82 92/53 12/05/17 08:00 97.5 82 18 92/53 (66) 97 97.5 12/05/17 08:00 81 12/05/17 04:01 76 12/05/17 04:00 97.2 74 20 98/66 (77) 100 97.2 12/05/17 00:00 98.4 90 20 112/71 (85) 100 98.4 12/04/17 23:34 89 12/04/17 21:00 Room Air 12/04/17 20:36 106 117/60 12/04/17 20:00 98.1 106 20 117/60 (79) 96 98.1 Intake and Output 12/04/17 12/05/17 19:00 07:00 Intake Total 240 ml 120 ml Output Total 0 ml 0 ml Balance 240 ml 120 ml Intake Oral 240 ml 120 ml Output Urine Total 0 ml 0 ml Laboratory Tests Test 12/05/17 07:15 Phosphorus Level 6.9 MG/DL (2.5-4.9) H Magnesium Level 2.4 MG/DL (1.8-2.4) Random Vancomycin Level 21.9 ug/mL Microbiology Date/Time Source Procedure Growth Status 12/04/17 15:03 Wound Gram Stain - Final Resulted 12/04/17 15:03 Wound Wound Culture Pending Resulted Lizandro Falcon MD Dec 05, 2017 19:31
--- NOTE | 2017-12-05 19:48 | Cardiology Report ---
APPROVED REPORT EXAM: Two-dimensional and M-mode echocardiogram with Doppler and color Doppler. INDICATION Syncope M-Mode DIMENSIONS IVSd1.5 (0.7-1.1cm)Left Atrium (MM)4.5 (1.6-4.0cm) LVDd5.6 (3.5-5.6cm)Aortic Root4.3 (2.0-3.7cm) PWd1.1 (0.7-1.1cm)Aortic Cusp Exc.1.9 (1.5-2.0cm) LVDs4.9 (2.5-4.0cm) PWs0.7 cm Normal left ventricular chamber size, systolic function and wall motion. Left ventricular ejection fraction estimated to be 70%. Mild left ventricular hypertrophy. No evidence of pericardial effusion. Left atrial size at upper limits of normal. Right cardiac chamber sizes are within normal limits. Mobile IAS (InterAtrial Septum) noted. Focal aortic valve sclerosis with adequate cusp excursion. Thickened mitral valve leaflets with normal excursion. Echogenic material noted on MV leaflets - maybe calcification. Mitral annulus and aortic root calcification. Aortic root dilatation. Pulmonic valve not well visualized. Normal tricuspid valve structure. IVC at normal size with physiologic collapse. A color flow and spectral Doppler study was performed and revealed: Trace aortic regurgitation. Trace mitral regurgitation. Mitral diastolic velocities suggest reduced left ventricular relaxation c/w mild LV diastolic dysfunction (Grade I). Trace tricuspid regurgitation. Tricuspid systolic velocities suggests peak right ventricular systolic pressure of 20 mmHg. Trace pulmonic regurgitation present.
--- NOTE | 2017-12-05 19:56 | Cardiology Report ---
APPROVED REPORT EKG Measurement Heart [id number] Normal sinus rhythm Possible Left atrial enlargement Left anterior fascicular block Nonspecific T wave abnormality Prolonged QT Abnormal ECG
[2017-12-05 20:00] VITALS: BP 122/86
--- NOTE | 2017-12-05 20:11 | Diagnostic Imaging Report ---
Indication: Status post transmetatarsal amputation with wound draining pus. Technique: MRI of the right foot was obtained according the following sequences: 3 plane localizer, axial, sagittal and coronal STIR and T1 FSE pulse sequences. No gadolinium was given for this examination. Comparison: No prior exam available for comparison. No concurrent radiographs available for comparison. Findings: The patient is status post transmetatarsal amputation. There is a linear soft tissue defect about the dorsal aspect of the soft tissues of the amputation stump which measures approximately 1.5 cm in depth. This may correlate with the given history of draining wound. There is abnormal STIR signal hyperintensity involving the shafts of the second through fifth metatarsals. Abnormal STIR signal hyperintensity is also noted at the tip of the first metatarsal stump. Associated T1 signal hypointensity suggesting osteomyelitis is clearly noted along the distal tips of the second, third and fourth metatarsal stumps. It is less obvious in the first and fifth metatarsal stumps. Area STIR signal hyperintensity appears to be larger than the associated T1 signal hypointensity suggesting some findings may be related to osteitis. No definite acute fracture identified. No large tendinous injury identified although exam not optimally protocoled for such evaluation. IMPRESSION: Transmetatarsal amputation with abnormal marrow edema involving the shafts of the residual second through fifth metatarsals and tip of the residual first metatarsal. Obvious associated T1 signal hypointensity involving the distal aspects of the second through fourth metatarsals suggestive of osteomyelitis. Marrow edema seems to be larger than the associated T1 signal abnormality in the first and fifth metatarsals suggesting that findings may in part be related to osteitis.
--- NOTE | 2017-12-05 20:45 | Consultation ---
DATE OF CONSULTATION: 12/05/2017 CONSULTING PHYSICIAN: Landon Lane D.P.M. REQUESTING PHYSICIAN: Shahram Duong M.D. REASON FOR CONSULTATION: Altered mental status, possible sepsis from right foot wound. HISTORY OF PRESENT ILLNESS: The patient is a 52-year-old male, who was admitted to [facility] on 12/04/2017 for the above diagnoses. The patient states that he had surgery approximately 2 to 3 months ago. It appeared that the wound did not heal. He did specify that he did have some arterial insufficiency that was diagnosed, but no procedures were performed to address that. The patient underwent a transmetatarsal amputation for gangrenous toes. The patient states that he is ambulatory and has been self-caring for his wound. PAST MEDICAL HISTORY: Significant for type 2 diabetes, osteomyelitis, status post transmetatarsal amputation, end-stage renal disease, renal cell carcinoma, left nephrectomy, peripheral vascular disease, history of gastritis, and hemorrhagic esophagitis. ALLERGIES: No known drug allergies. SOCIAL HISTORY: The patient is a former smoker. FAMILY HISTORY: Noncontributory. REVIEW OF SYSTEMS: HEENT: The patient denies any headaches, blurred vision, or ringing in the ears. CARDIOVASCULAR: The patient denies any chest pain or shortness of breath. GENITOURINARY: The patient denies any urgency, frequency, burning upon urination, or hematuria. GASTROINTESTINAL: The patient denies any constipation, diarrhea, or blood in the stool. PHYSICAL EXAMINATION: VITAL SIGNS: Temperature is 97.7 degrees, pulse is 78, respiration rate is 18, blood pressure is 121/73 and saturating 100% on room air. LOWER EXTREMITY: Nonpalpable pedal pulses noted bilaterally. Feet are equally warm. There is no edema or cyanosis noted. DERMATOLOGICAL: No open sores or lesions noted on the left foot. Right foot stump, the lateral aspect of the stump appears to be a full-thickness ulceration approximately 3 cm in depth probing to soft tissue, possibly bone. Mild amount of serous drainage noted. No malodor is noted. No purulence is noted. No pain upon palpation of the site. No other ulcers or lesions noted on the right foot. NEUROLOGIC: Protective threshold is diminished. MUSCULOSKELETAL: Transmetatarsal amputation noted on the right foot. No gross musculoskeletal deformities noted on the left. Muscle strength is 4/5 on the anterior, lateral, and posterior muscle groups of the bilateral lower extremities. The patient is ambulatory. LABORATORY AND DIAGNOSTIC DATA: White blood cell count is 8.2, hemoglobin and hematocrit is 14.5 and 44.4, and platelet count is 207. Sedimentation rate is 32. Potassium is 3.9, BUN is 48, creatinine is 8.4, and glucose is 236. C-reactive protein is 2.8. Albumin is 3.7. No lower extremity imaging is noted. ASSESSMENT: 1. Right foot stump wound, chronic, status post transmetatarsal amputation. 2. Diabetic foot ulcer. 3. Diabetes with neuropathy. 4. History of peripheral arterial disease. 5. End-stage renal disease. PLAN: 1. We will order wound care to include packing of the right foot wound with dressings being changed daily. We will also order arterial ultrasound of bilateral lower extremities. 2. Pending orders for cultures and MRI of the right foot. 3. Continue antibiotics per Infectious Disease. 4. No surgical intervention indicated at this time. Thank you for the courtesy of this consultation, Dr. Duong. Landon Lane D.P.M. DR: KEVON JOB#: [id number] CC:
[2017-12-05] MEDS: Levemir Flexpen SUBQ SCH (21:18)
[2017-12-06] VITALS: BP 131/80
[2017-12-06 04:00] VITALS: BP 121/67
[2017-12-06] MEDS: Piperacillin/Tazobactam 2.25 GM in D5W 55 ML IVPB SCH ×3 (06:11→21:23)
[2017-12-06] MEDS: NovoLOG Insulin Flexpen SUBQ SCH ×4 (06:12→21:37)
[2017-12-06] MEDS: Heparin 5000 units/ml inj SUBQ SCH ×3 (06:12→21:36)
--- NOTE | 2017-12-06 07:55 | Podiatric Progress Note ---
Assessment/Plan Patient Mahsa Claire is a 52 year old male who was admitted on Dec 04, 2017 at 12: 39 with Assessment/Plan A/ 1) Right foot stump wound s/p TMA - with osteomyelitis 2) DFU 3) DM neuropathy 4) h/o PAD 5) ESRD P/ 1) Cont orders: wound care 2) Pending: Arterial ultz BLE, Cultures 3) MRI right foot - acute osteo. No surgical intervention at this point until arterial status is clear. High failure rate if revision of stump performed if vasc optimization required. 4) Cont abx per ID 5) Will follow Subjective Allergies: Coded Allergies: NO KNOWN ALLERGIES (Verified Allergy, Unknown, 12/04/17) Subjective Patient is comfortable. Objective Exam Last 24 Hour Vital Signs Date Time Temp Pulse Resp B/P (MAP) Pulse Ox O2 Delivery O2 Flow Rate FiO2 12/06/17 04:00 97.5 63 20 121/67 (85) 98 97.5 12/06/17 00:00 97.3 67 20 131/80 (97) 100 97.3 12/05/17 21:00 Room Air 12/05/17 20:00 97.4 83 20 122/86 (98) 98 97.4 12/05/17 16:15 97.9 81 20 95/55 (68) 99 97.9 12/05/17 16:00 84 12/05/17 12:00 78 12/05/17 11:55 97.7 83 18 121/73 (89) 100 97.7 12/05/17 09:00 Room Air 12/05/17 08:50 82 92/53 12/05/17 08:50 92/53 12/05/17 08:50 82 92/53 12/05/17 08:00 97.5 82 18 92/53 (66) 97 97.5 12/05/17 08:00 81 Microbiology Date/Time Source Procedure Growth Status 12/04/17 15:15 Blood Blood Culture - Preliminary NO GROWTH AFTER 24 HOURS Resulted 12/04/17 15:03 Wound Gram Stain - Final Resulted 12/04/17 15:03 Wound Wound Culture Pending Resulted Dermatological Dermatological Narrative exam unchanged from yesterday. minimal serous drainage. Landon Lane DPPineda Dec 06, 2017 07:55
[2017-12-06 08:00] VITALS: BP 121/67
[2017-12-06] MEDS: Sensipar 30mg Tab ORAL SCH (08:24)
[2017-12-06] MEDS: Aspirin Baby 81mg ORAL SCH (08:24)
[2017-12-06] MEDS: Docusate 100mg cap ORAL SCH ×2 (08:25→21:00)
[2017-12-06] MEDS ORDERED: Imdur 30mg tab ORAL SCH (09:00)
[2017-12-06 12:00] VITALS: BP 135/73
--- NOTE | 2017-12-06 14:04 | Consultation ---
History of Present Illness General Date patient seen: Dec 05, 2017 Present Illness HPI 52 years old, gentleman with past medical history significant for depression, diabetes type 2, history of osteomyelitis of the foot with transmetatarsal amputation of the right lower extremity, history of end-stage renal disease on hemodialysis, renal cell carcinoma, status post the left nephrectomy. the pt is very inpatient and demanding with staff. At times he gets agitated. During the evaluation he stated that he is depressed however was smiling and at some point laughed. Allergies: Coded Allergies: NO KNOWN ALLERGIES (Verified Allergy, Unknown, 12/04/17) Medication History Scheduled Amlodipine Besylate (Norvasc), 5 MG ORAL DAILY, (Reported) Amlodipine Besylate (Norvasc), 10 MG ORAL DAILY, (Reported) Aspirin* (Aspirin*), 81 MG ORAL DAILY, (Reported) Atorvastatin (Lipitor), 10 MG ORAL BEDTIME, (Reported) Escitalopram Oxalate* (Lexapro*), 10 MG ORAL DAILY, (Reported) Hydralazine Hcl* (Hydralazine Hcl*), 50 MG ORAL EVERY 8 HOURS, (Reported) Metoprolol Succinate* (Metoprolol Succinate*), 200 MG ORAL DAILY, (Reported) Metoprolol Tartrate* (Metoprolol Tartrate*), 100 MG ORAL EVERY 12 HOURS, ( Reported) Pravastatin Sod* (Pravastatin Sod*), 40 MG ORAL BEDTIME, (Reported) Sevelamer Carbonate* (Renvela*), 800 MG ORAL THREE TIMES A DAY, (Reported) Valsartan (Diovan), 160 MG ORAL DAILY, (Reported) Miscellaneous Medications Isosorbide Mononitrate (Isosorbide Mononitrate Er), 30 MG PO, (Reported) Robinson/Polymyx B Sulf/Dexameth (Goehte-Hdbuj-Tazzauzu Eye Drop), 3.5 ML OP, ( Reported) Promethazine HCl/Codeine (Prometh-Codein 6.25-10 mg/5 ml), 5 ML PO, (Reported) Sucroferric Oxyhydroxide (Velphoro), 500 MG PO, (Reported) Sucroferric Oxyhydroxide (Velphoro), 500 MG PO, (Reported) Patient History Limited by: medical condition History Provided By: Patient, Significant Other, Law Enforcement Healthcare decision maker Roshni Pagan Resuscitation status Full Code Advanced Directive on File Roshni Youngham Past Medical/Surgical History Past Medical/Surgical History: (1) Sepsis (2) ESRD (end stage renal disease) (3) 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 (4) Ulcer of amputation stump of foot (5) Diabetes mellitus Review of Systems Psychiatric: Reports: prior hx, anxiety, depressed feelings, emotional problems Physical Exam General Appearance: no apparent distress, alert Neurologic: oriented x 3, responsive, depressed affect Last 24 Hour Vital Signs Date Time Temp Pulse Resp B/P (MAP) Pulse Ox O2 Delivery O2 Flow Rate FiO2 12/06/17 12:00 97.7 96 18 135/73 (93) 99 97.7 12/06/17 09:00 Room Air 12/06/17 08:24 121/67 12/06/17 08:00 97.7 94 20 121/67 (85) 98 97.7 12/06/17 04:00 97.5 63 20 121/67 (85) 98 97.5 12/06/17 00:00 97.3 67 20 131/80 (97) 100 97.3 12/05/17 21:00 Room Air 12/05/17 20:00 97.4 83 20 122/86 (98) 98 97.4 12/05/17 16:15 97.9 81 20 95/55 (68) 99 97.9 12/05/17 16:00 84 Intake and Output 12/05/17 12/06/17 19:00 07:00 Intake Total 240 ml 110 ml Balance 240 ml 110 ml Intake Oral 240 ml IV Total 110 ml # Voids 1 # Bowel Movements 9 Height (Feet): 5 Height (Inches): 11.00 Weight (Pounds): 178 Medications Current Medications Medications (Trade) Dose Ordered Sig/Felix Route PRN Reason Start Time Stop Time Status Last Admin Dose Admin Acetaminophen (Tylenol) 650 mg Q4H PRN ORAL Mild Pain (Pain Scale 1-3) 12/05/17 19:15 01/03/18 15:14 Acetaminophen (Tylenol) 650 mg Q4H PRN ORAL fever (temp>100.5F) 12/05/17 19:15 01/03/18 15:14 Aspirin (ASA) 81 mg DAILY ORAL 12/06/17 09:00 01/04/18 08:59 12/06/17 08:24 Atorvastatin Calcium (Lipitor) 10 mg BEDTIME ORAL 12/05/17 21:00 01/03/18 20:59 12/05/17 21:08 Cinacalcet (Sensipar) 30 mg DAILY ORAL 12/06/17 09:00 01/04/18 08:59 12/06/17 08:24 Dextrose (Dextrose 50%) 25 ml Q1H PRN IV Hypoglycemia 12/05/17 18:15 01/03/18 15:14 Dextrose (Dextrose 50%) 50 ml Q1H PRN IV Hypoglycemia 12/05/17 18:15 01/03/18 15:14 Docusate Sodium (Colace) 100 mg EVERY 12 HOURS ORAL 12/05/17 21:00 01/03/18 20:59 Escitalopram Oxalate (Lexapro) 10 mg DAILY ORAL 12/06/17 09:00 01/04/18 08:59 12/06/17 08:25 Heparin Sodium (Porcine) (Heparin 5000 units/ml) 5,000 units EVERY 8 HOURS SUBQ 12/05/17 22:00 01/03/18 21:59 12/06/17 06:12 Insulin Aspart (NovoLOG) BEFORE MEALS AND HS SUBQ 12/05/17 21:00 01/03/18 17:59 12/06/17 12:10 Insulin Detemir (Levemir) 10 units BEDTIME SUBQ 12/05/17 21:00 01/03/18 20:59 12/05/17 21:18 Nitroglycerin (Ntg) 0.4 mg Q5M PRN SL Prn Chest Pain 12/05/17 17:45 01/03/18 15:14 Ondansetron HCl (Zofran) 4 mg Q6H PRN IVP Nausea & Vomiting 12/05/17 18:00 01/03/18 17:59 12/05/17 21:19 Piperacillin Sod/ Tazobactam Sod 2.25 gm/Dextrose 55 ml @ 110 mls/hr Q8HR IVPB 12/05/17 22:00 12/09/17 21:59 12/06/17 06:11 Polyethylene Glycol (Miralax) 17 gm DAILYPRN PRN ORAL Constipation 12/05/17 18:00 01/04/18 17:59 Sevelamer Carbonate (Renvela) 800 mg THREE TIMES A DAY ORAL 12/05/17 18:00 01/03/18 17:59 12/06/17 12:10 Vancomycin HCl (Vanco rx to dose) 1 ea DAILY PRN MISC Per rx protocol 12/05/17 18:00 01/04/18 17:59 Assessment/Plan Status: stable Assessment/Plan MDD Lexapro 10mg po qam Provided ro/Leora Sesay MD Dec 06, 2017 14:04
--- NOTE | 2017-12-06 14:10 | General Progress Note ---
Assessment/Plan Status: stable Assessment/Plan MDD Lexapro 10mg po qam Provided ro/st Subjective Date patient seen: Dec 06, 2017 Neurologic/Psychiatric: Reports: anxiety, depressed, emotional problems Allergies: Coded Allergies: NO KNOWN ALLERGIES (Verified Allergy, Unknown, 12/04/17) Objective Last 24 Hour Vital Signs Date Time Temp Pulse Resp B/P (MAP) Pulse Ox O2 Delivery O2 Flow Rate FiO2 12/06/17 12:00 97.7 96 18 135/73 (93) 99 97.7 12/06/17 09:00 Room Air 12/06/17 08:24 121/67 12/06/17 08:00 97.7 94 20 121/67 (85) 98 97.7 12/06/17 04:00 97.5 63 20 121/67 (85) 98 97.5 12/06/17 00:00 97.3 67 20 131/80 (97) 100 97.3 12/05/17 21:00 Room Air 12/05/17 20:00 97.4 83 20 122/86 (98) 98 97.4 12/05/17 16:15 97.9 81 20 95/55 (68) 99 97.9 12/05/17 16:00 84 Intake and Output 12/05/17 12/06/17 19:00 07:00 Intake Total 240 ml 110 ml Balance 240 ml 110 ml Intake Oral 240 ml IV Total 110 ml # Voids 1 # Bowel Movements 9 Height (Feet): 5 Height (Inches): 11.00 Weight (Pounds): 178 General Appearance: no apparent distress, alert Neurologic: oriented x 3, responsive, depressed affect Leora Bishop MD Dec 06, 2017 14:09
--- NOTE | 2017-12-06 14:20 | Pulmonology Progress Note ---
Assessment/Plan Problems: (1) Acute osteomyelitis of metatarsal bone of right foot (2) Sepsis (3) 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 (4) Diabetes mellitus (5) ESRD (end stage renal disease) Assessment/Plan iv abx check cultures wound care might need short term placement to get wound care and abx Subjective ROS Limited/Unobtainable: No Constitutional: Reports: no symptoms HEENT: Repors: no symptoms Respiratory: Reports: no symptoms Allergies: Coded Allergies: NO KNOWN ALLERGIES (Verified Allergy, Unknown, 12/04/17) Objective Last 24 Hour Vital Signs Date Time Temp Pulse Resp B/P (MAP) Pulse Ox O2 Delivery O2 Flow Rate FiO2 12/06/17 12:00 97.7 96 18 135/73 (93) 99 97.7 12/06/17 09:00 Room Air 12/06/17 08:24 121/67 12/06/17 08:00 97.7 94 20 121/67 (85) 98 97.7 12/06/17 04:00 97.5 63 20 121/67 (85) 98 97.5 12/06/17 00:00 97.3 67 20 131/80 (97) 100 97.3 12/05/17 21:00 Room Air 12/05/17 20:00 97.4 83 20 122/86 (98) 98 97.4 12/05/17 16:15 97.9 81 20 95/55 (68) 99 97.9 12/05/17 16:00 84 Intake and Output 12/05/17 12/06/17 19:00 07:00 Intake Total 240 ml 110 ml Balance 240 ml 110 ml Intake Oral 240 ml IV Total 110 ml # Voids 1 # Bowel Movements 9 General Appearance: WD/WN HEENT: normocephalic, anicteric Respiratory/Chest: chest wall non-tender, lungs clear Cardiovascular: normal peripheral pulses, regular rhythm, no JVD Abdomen: soft, non tender Genitourinary: normal external genitalia Skin: no lesions Microbiology Date/Time Source Procedure Growth Status 12/04/17 15:15 Blood Blood Culture - Preliminary NO GROWTH AFTER 24 HOURS Resulted 12/04/17 15:10 Blood Blood Culture - Preliminary NO GROWTH AFTER 24 HOURS Resulted 12/04/17 15:03 Wound Gram Stain - Final Resulted 12/04/17 15:03 Wound Culture - Preliminary Gram Negative Bacillus 1 Gram Negative Bacillus 2 Staphylococcus Aureus Resulted 12/04/17 15:00 Nasal Nares MRSA Culture - Final NO METHICILLIN RESISTANT STAPH AUREUS... Complete 12/04/17 15:03 Rectum VRE Culture - Final NO VANCOMYCIN RESISTANT ENTEROCOCCUS ... Complete Current Medications Medications (Trade) Dose Ordered Sig/Felix Route PRN Reason Start Time Stop Time Status Last Admin Dose Admin Acetaminophen (Tylenol) 650 mg Q4H PRN ORAL Mild Pain (Pain Scale 1-3) 12/05/17 19:15 01/03/18 15:14 Acetaminophen (Tylenol) 650 mg Q4H PRN ORAL fever (temp>100.5F) 12/05/17 19:15 01/03/18 15:14 Aspirin (ASA) 81 mg DAILY ORAL 12/06/17 09:00 01/04/18 08:59 12/06/17 08:24 Atorvastatin Calcium (Lipitor) 10 mg BEDTIME ORAL 12/05/17 21:00 01/03/18 20:59 12/05/17 21:08 Cinacalcet (Sensipar) 30 mg DAILY ORAL 12/06/17 09:00 01/04/18 08:59 12/06/17 08:24 Dextrose (Dextrose 50%) 25 ml Q1H PRN IV Hypoglycemia 12/05/17 18:15 01/03/18 15:14 Dextrose (Dextrose 50%) 50 ml Q1H PRN IV Hypoglycemia 12/05/17 18:15 01/03/18 15:14 Docusate Sodium (Colace) 100 mg EVERY 12 HOURS ORAL 12/05/17 21:00 01/03/18 20:59 Escitalopram Oxalate (Lexapro) 10 mg DAILY ORAL 12/06/17 09:00 01/04/18 08:59 12/06/17 08:25 Heparin Sodium (Porcine) (Heparin 5000 units/ml) 5,000 units EVERY 8 HOURS SUBQ 12/05/17 22:00 01/03/18 21:59 12/06/17 06:12 Insulin Aspart (NovoLOG) BEFORE MEALS AND HS SUBQ 12/05/17 21:00 01/03/18 17:59 12/06/17 12:10 Insulin Detemir (Levemir) 10 units BEDTIME SUBQ 12/05/17 21:00 01/03/18 20:59 12/05/17 21:18 Nitroglycerin (Ntg) 0.4 mg Q5M PRN SL Prn Chest Pain 12/05/17 17:45 01/03/18 15:14 Ondansetron HCl (Zofran) 4 mg Q6H PRN IVP Nausea & Vomiting 12/05/17 18:00 01/03/18 17:59 12/05/17 21:19 Piperacillin Sod/ Tazobactam Sod 2.25 gm/Dextrose 55 ml @ 110 mls/hr Q8HR IVPB 12/05/17 22:00 12/09/17 21:59 12/06/17 06:11 Polyethylene Glycol (Miralax) 17 gm DAILYPRN PRN ORAL Constipation 12/05/17 18:00 01/04/18 17:59 Sevelamer Carbonate (Renvela) 800 mg THREE TIMES A DAY ORAL 12/05/17 18:00 01/03/18 17:59 12/06/17 12:10 Vancomycin HCl (Vanco rx to dose) 1 ea DAILY PRN MISC Per rx protocol 12/05/17 18:00 01/04/18 17:59 Jorge Anaya MD Dec 06, 2017 14:20
--- NOTE | 2017-12-06 15:32 | Internal Med Progress Note ---
Subjective Physician Name Shahram Duong Attending Physician Shahram Duong MD Current Medications Medications (Trade) Dose Ordered Sig/Felix Route PRN Reason Start Time Stop Time Status Last Admin Dose Admin Acetaminophen (Tylenol) 650 mg Q4H PRN ORAL Mild Pain (Pain Scale 1-3) 12/05/17 19:15 01/03/18 15:14 Acetaminophen (Tylenol) 650 mg Q4H PRN ORAL fever (temp>100.5F) 12/05/17 19:15 01/03/18 15:14 Aspirin (ASA) 81 mg DAILY ORAL 12/06/17 09:00 01/04/18 08:59 12/06/17 08:24 Atorvastatin Calcium (Lipitor) 10 mg BEDTIME ORAL 12/05/17 21:00 01/03/18 20:59 12/05/17 21:08 Cinacalcet (Sensipar) 30 mg DAILY ORAL 12/06/17 09:00 01/04/18 08:59 12/06/17 08:24 Dextrose (Dextrose 50%) 25 ml Q1H PRN IV Hypoglycemia 12/05/17 18:15 01/03/18 15:14 Dextrose (Dextrose 50%) 50 ml Q1H PRN IV Hypoglycemia 12/05/17 18:15 01/03/18 15:14 Docusate Sodium (Colace) 100 mg EVERY 12 HOURS ORAL 12/05/17 21:00 01/03/18 20:59 Escitalopram Oxalate (Lexapro) 10 mg DAILY ORAL 12/06/17 09:00 01/04/18 08:59 12/06/17 08:25 Heparin Sodium (Porcine) (Heparin 5000 units/ml) 5,000 units EVERY 8 HOURS SUBQ 12/05/17 22:00 01/03/18 21:59 12/06/17 06:12 Insulin Aspart (NovoLOG) BEFORE MEALS AND HS SUBQ 12/05/17 21:00 01/03/18 17:59 12/06/17 12:10 Insulin Detemir (Levemir) 10 units BEDTIME SUBQ 12/05/17 21:00 01/03/18 20:59 12/05/17 21:18 Nitroglycerin (Ntg) 0.4 mg Q5M PRN SL Prn Chest Pain 12/05/17 17:45 01/03/18 15:14 Ondansetron HCl (Zofran) 4 mg Q6H PRN IVP Nausea & Vomiting 12/05/17 18:00 01/03/18 17:59 12/05/17 21:19 Piperacillin Sod/ Tazobactam Sod 2.25 gm/Dextrose 55 ml @ 110 mls/hr Q8HR IVPB 12/05/17 22:00 12/09/17 21:59 12/06/17 06:11 Polyethylene Glycol (Miralax) 17 gm DAILYPRN PRN ORAL Constipation 12/05/17 18:00 01/04/18 17:59 Sevelamer Carbonate (Renvela) 800 mg THREE TIMES A DAY ORAL 12/05/17 18:00 01/03/18 17:59 12/06/17 12:10 Vancomycin HCl (Vanco rx to dose) 1 ea DAILY PRN MISC Per rx protocol 12/05/17 18:00 01/04/18 17:59 Allergies: Coded Allergies: NO KNOWN ALLERGIES (Verified Allergy, Unknown, 12/04/17) Subjective awake, alert, responsive, NAD, feeling better Objective Last Vital Signs Date Time Temp Pulse Resp B/P (MAP) Pulse Ox O2 Delivery O2 Flow Rate FiO2 12/06/17 12:00 97.7 96 18 135/73 (93) 99 97.7 12/06/17 09:00 Room Air Microbiology Date/Time Source Procedure Growth Status 12/04/17 15:15 Blood Blood Culture - Preliminary NO GROWTH AFTER 24 HOURS Resulted 12/04/17 15:10 Blood Blood Culture - Preliminary NO GROWTH AFTER 24 HOURS Resulted 12/04/17 15:03 Wound Gram Stain - Final Resulted 12/04/17 15:03 Wound Culture - Preliminary Gram Negative Bacillus 1 Gram Negative Bacillus 2 Staphylococcus Aureus Resulted 12/04/17 15:00 Nasal Nares MRSA Culture - Final NO METHICILLIN RESISTANT STAPH AUREUS... Complete 12/04/17 15:03 Rectum VRE Culture - Final NO VANCOMYCIN RESISTANT ENTEROCOCCUS ... Complete Intake and Output 12/05/17 12/06/17 19:00 07:00 Intake Total 240 ml 110 ml Balance 240 ml 110 ml Intake Oral 240 ml IV Total 110 ml # Voids 1 # Bowel Movements 9 Objective GENERAL: The patient is awake, responsive, alert HEAD AND NECK: Pupils are equal and reactive to light. Anicteric. Neck was supple. No JVD. LUNGS: Good air entry. No wheezing or rales. Fair inspiratory effort. HEART: S1 and S2. Distant heart sounds. No murmur. ABDOMEN: Soft, nondistended, and nontender. Positive bowel sounds. EXTREMITIES: No cyanosis, clubbing, or edema. Right upper extremity has AV fistula functional and right lower extremity has transmetatarsal amputation / dressing. NEUROLOGIC: Cranial nerves II through XII grossly intact. Motor intact in all extremities. Assessment/Plan Assessment/Plan ASSESSMENT: 1. Altered mental status most likely secondary to the Toxic metabolic encephalopathy due to underlying infection. 2. Hyperglycemia. 3. Lactic acidosis. 4. End-stage renal disease, on hemodialysis. 5. Hypertension. 6. Diabetes type 2, uncontrolled. 7. Diabetic nephropathy. 8. Diabetic polyneuropathy. 9. Severe peripheral vascular disease. 10. Infected right stump / osteomyelitis Plan: Hemodialysis F/U with labs and cultures Abx: Vanco IV and Zosyn MRI of Right foot IMPRESSION: Transmetatarsal amputation with abnormal marrow edema involving the shafts of the residual second through fifth metatarsals and tip of the residual first metatarsal. Obvious associated T1 signal hypointensity involving the distal aspects of the second through fourth metatarsals suggestive of osteomyelitis. Marrow edema seems to be larger than the associated T1 signal abnormality in the first and fifth metatarsals suggesting that findings may in part be related to osteitis.. Shahram Duong MD Dec 06, 2017 15:32
[2017-12-06 16:00] VITALS: BP 129/71
[2017-12-06] MEDS ORDERED: Tubing IV Secondary IV ONE (16:27)
[2017-12-06] MEDS ORDERED: NS 275ml ONE (16:27)
--- NOTE | 2017-12-06 16:34 | Infectious Diseases Prog Note ---
Assessment/Plan Problems: (1) Acute osteomyelitis of metatarsal bone of right foot Assessment & Plan: with staph aureus and gram negative rods, may need surgical debridement , continue vancomycin and zosyn empirically pending cultures results (2) Ulcer of amputation stump of foot Assessment & Plan: with pus draining with underlying osteomyelitis of the metatarsal bones as per MRI of the right foot . 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 Assessment & Plan: with open wound draining purulent materials , due to ataph aureus and gram negative rods and underlying osteomyelitis , await wound culture and sensitivity , continue vancomycin and zosyn empiric coverage pending cultures , [employer] eval is in progress (4) Sepsis Assessment & Plan: due to the above , continue vancomycin and zosyn empirically pending culture (5) ESRD (end stage renal disease) Assessment & Plan: continue HD as per renal Subjective Constitutional: Reports: no symptoms HEENT: Reports: no symptoms Respiratory: Reports: no symptoms Breasts: Reports: no symptoms Cardiovascular: Reports: no symptoms Gastrointestinal/Abdominal: Reports: no symptoms Genitourinary: Reports: no symptoms Neurologic: Reports: no symptoms Psychiatric: Reports: no symptoms Skin: Reports: ulcer Endocrine: Reports: no symptoms Hematologic: Reports: no symptoms Musculoskeletal: Reports: no symptoms Allergies: Coded Allergies: NO KNOWN ALLERGIES (Verified Allergy, Unknown, 12/04/17) Objective Vital Signs Last 24 Hour Vital Signs Date Time Temp Pulse Resp B/P (MAP) Pulse Ox O2 Delivery O2 Flow Rate FiO2 12/06/17 12:00 97.7 96 18 135/73 (93) 99 97.7 12/06/17 09:00 Room Air 12/06/17 08:24 121/67 12/06/17 08:00 97.7 94 20 121/67 (85) 98 97.7 12/06/17 04:00 97.5 63 20 121/67 (85) 98 97.5 12/06/17 00:00 97.3 67 20 131/80 (97) 100 97.3 12/05/17 21:00 Room Air 12/05/17 20:00 97.4 83 20 122/86 (98) 98 97.4 Height (Feet): 5 Height (Inches): 11.00 Weight (Pounds): 178 General Appearance: WD/WN, no acute distress HEENT: normocephalic, atraumatic, anicteric, mucous membranes moist Respiratory/Chest: chest wall non-tender, lungs clear, normal breath sounds, no respiratory distress, no accessory muscle use Cardiovascular: normal peripheral pulses, normal rate, regular rhythm, no gallop/murmur, no JVD Abdomen: normal bowel sounds, soft, non tender, no organomegaly, non distended , no mass, no scars Extremities: no cyanosis, no clubbing Skin: no rash, no lesions, ulcers - at the right foot stump wound Microbiology Date/Time Source Procedure Growth Status 12/04/17 15:15 Blood Blood Culture - Preliminary NO GROWTH AFTER 24 HOURS Resulted 12/04/17 15:10 Blood Blood Culture - Preliminary NO GROWTH AFTER 24 HOURS Resulted 12/04/17 15:03 Wound Gram Stain - Final Resulted 12/04/17 15:03 Wound Culture - Preliminary Gram Negative Bacillus 1 Gram Negative Bacillus 2 Staphylococcus Aureus Resulted 12/04/17 15:00 Nasal Nares MRSA Culture - Final NO METHICILLIN RESISTANT STAPH AUREUS... Complete 12/04/17 15:03 Rectum VRE Culture - Final NO VANCOMYCIN RESISTANT ENTEROCOCCUS ... Complete Current Medications Medications (Trade) Dose Ordered Sig/Felix Route PRN Reason Start Time Stop Time Status Last Admin Dose Admin Acetaminophen (Tylenol) 650 mg Q4H PRN ORAL Mild Pain (Pain Scale 1-3) 12/05/17 19:15 01/03/18 15:14 Acetaminophen (Tylenol) 650 mg Q4H PRN ORAL fever (temp>100.5F) 12/05/17 19:15 01/03/18 15:14 Aspirin (ASA) 81 mg DAILY ORAL 12/06/17 09:00 01/04/18 08:59 12/06/17 08:24 Atorvastatin Calcium (Lipitor) 10 mg BEDTIME ORAL 12/05/17 21:00 01/03/18 20:59 12/05/17 21:08 Cinacalcet (Sensipar) 30 mg DAILY ORAL 12/06/17 09:00 01/04/18 08:59 12/06/17 08:24 Dextrose (Dextrose 50%) 25 ml Q1H PRN IV Hypoglycemia 12/05/17 18:15 01/03/18 15:14 Dextrose (Dextrose 50%) 50 ml Q1H PRN IV Hypoglycemia 12/05/17 18:15 01/03/18 15:14 Docusate Sodium (Colace) 100 mg EVERY 12 HOURS ORAL 12/05/17 21:00 01/03/18 20:59 Escitalopram Oxalate (Lexapro) 10 mg DAILY ORAL 12/06/17 09:00 01/04/18 08:59 12/06/17 08:25 Heparin Sodium (Porcine) (Heparin 5000 units/ml) 5,000 units EVERY 8 HOURS SUBQ 12/05/17 22:00 01/03/18 21:59 12/06/17 16:05 Insulin Aspart (NovoLOG) BEFORE MEALS AND HS SUBQ 12/05/17 21:00 01/03/18 17:59 12/06/17 12:10 Insulin Detemir (Levemir) 10 units BEDTIME SUBQ 12/05/17 21:00 01/03/18 20:59 12/05/17 21:18 Nitroglycerin (Ntg) 0.4 mg Q5M PRN SL Prn Chest Pain 12/05/17 17:45 01/03/18 15:14 Ondansetron HCl (Zofran) 4 mg Q6H PRN IVP Nausea & Vomiting 12/05/17 18:00 01/03/18 17:59 12/05/17 21:19 Piperacillin Sod/ Tazobactam Sod 2.25 gm/Dextrose 55 ml @ 110 mls/hr Q8HR IVPB 12/05/17 22:00 12/09/17 21:59 12/06/17 06:11 Polyethylene Glycol (Miralax) 17 gm DAILYPRN PRN ORAL Constipation 12/05/17 18:00 01/04/18 17:59 Sevelamer Carbonate (Renvela) 800 mg THREE TIMES A DAY ORAL 12/05/17 18:00 01/03/18 17:59 12/06/17 12:10 Vancomycin HCl (Vanco rx to dose) 1 ea DAILY PRN MISC Per rx protocol 12/05/17 18:00 01/04/18 17:59 Cira Ceja M.D. Dec 06, 2017 16:34
[2017-12-06 20:00] VITALS: BP 93/58
[2017-12-06] MEDS: Levemir Flexpen SUBQ SCH (21:37)
--- NOTE | 2017-12-06 21:49 | Nephrology Progress Note ---
Assessment/Plan Assessment 1. Altered mental status. 2. End-stage renal disease. 3. Anemia of chronic kidney disease. 4. Renal osteodystrophy. 5. Hypertension, well controlled. 6. Diabetes. Plan dialysis as schedule check phos and PTH continue epoen continue antibiotic Subjective Constitutional: Reports: no symptoms HEENT: Reports: no symptoms Genitourinary: Reports: no symptoms Neurologic/Psychiatric: Reports: no symptoms Subjective alert and awake no complaints Objective Objective Last 24 Hour Vital Signs Date Time Temp Pulse Resp B/P (MAP) Pulse Ox O2 Delivery O2 Flow Rate FiO2 12/06/17 19:34 Room Air 12/06/17 16:00 97.7 98 18 129/71 (90) 96 97.7 12/06/17 16:00 Room Air 12/06/17 12:00 97.7 96 18 135/73 (93) 99 97.7 12/06/17 09:00 Room Air 12/06/17 08:24 121/67 12/06/17 08:00 97.7 94 20 121/67 (85) 98 97.7 12/06/17 04:00 97.5 63 20 121/67 (85) 98 97.5 12/06/17 00:00 97.3 67 20 131/80 (97) 100 97.3 Intake and Output 12/05/17 12/06/17 19:00 07:00 Intake Total 240 ml 110 ml Balance 240 ml 110 ml Intake Oral 240 ml IV Total 110 ml # Voids 1 # Bowel Movements 9 Height (Feet): 5 Height (Inches): 11.00 Weight (Pounds): 178 Objective HEAD AND NECK: No JVP. No LAD. No thyromegaly. Extraocular movement intact. Pupils are reactive to light and accommodation. LUNGS: Clear to auscultation. CARDIAC: Regular rate and rhythm. S1 and S2. No murmur. No rub. ABDOMEN: Soft, nontender, and nondistended. EXTREMITIES: The patient on the right has transmetatarsal amputation. Tessa Schwartz MD Dec 06, 2017 21:49
--- NOTE | 2017-12-06 22:15 | Consultation ---
DATE OF CONSULTATION: 12/05/2017 CARDIOLOGY CONSULTATION CONSULTING PHYSICIAN: Lizandro Falcon M.D. REFERRING PHYSICIAN: Shahram Duong M.D. REASON FOR CONSULTATION: Management of possible syncope and hypotension. HISTORY OF PRESENT ILLNESS: The patient is a very pleasant 52-year-old gentleman, who initially presents to [facility] for altered mental status. Apparently, he was getting his dialysis and he was found to be weak and confused. He called his sister, Roshni around 3 o'clock in the morning of the day of event and expressed that he was not feeling well. Then, at the time of arrival of her [id number], he was found to be confused. It is not clear whether if the patient sustained syncopal event. Ambulance was called in and the patient was taken to the emergency room of [facility]. Initial CT of head was unremarkable. Chest x-ray showed no acute cardiopulmonary disease. The patient was then transferred to this facility for further evaluation and management. The patient does not have any history of coronary artery disease, congestive heart failure, or cardiac arrhythmia. However, he has risk factors of diabetes mellitus, hypertension, and prior vascular event in 2011 i.e., CVA. At the time of arrival to the hospital, initial 12-lead electrocardiogram was significant for sinus rhythm at a rate of 96 with left atrial enlargement, left anterior fascicular block, nonspecific T-wave abnormalities, and prolongation of QT interval. PAST MEDICAL HISTORY: 1. GI bleed. 2. Diabetes mellitus type 2. 3. End-stage renal disease. 4. Gastritis. 5. Duodenitis. 6. Positive Helicobacter pylori infection. 7. History of stroke in 2011. 8. History of renal cell carcinoma status post left nephrectomy. 9. History of osteomyelitis of the foot, status post transmetatarsal amputation of right foot. 10. History of hypertension. 11. History of dyslipidemia. 12. History of right upper extremity fistula creation. PAST SURGICAL HISTORY: 1. Rapid right upper extremity fistula creation. 2. Left nephrectomy. 3. Right transmetatarsal amputation. MEDICATIONS: 1. Toprol 200 mg daily. 2. Amlodipine 5 mg daily. 3. Atorvastatin 10 mg at bedtime. 4. Lexapro 10 mg p.o. daily. 5. Hydralazine 50 mg q.8 hours. 6. Isosorbide mononitrate 30 mg p.o. daily. 7. Pravastatin 40 mg at bedtime. 8. Promethazine codeine 6.25-10 mg per 5 mL p.o. daily as need for cough. 9. Renvela 800 mg 3 times a day. 10. Velphoro 500 mg daily. 11. Valsartan 60 mg daily. ALLERGIES: No known drug allergies. SOCIAL HISTORY: Former smoker. Quit in January 2015. Denies any substance abuse besides of occasional marijuana use. Denies any alcohol. FAMILY HISTORY: Diabetes run in the family. No premature coronary artery disease in the first-degree relatives. REVIEW OF SYSTEMS: HEENT: Denies any headache, diplopia, or blurred vision. CONSTITUTIONAL: Denies any fever, chills, night sweats, or weight loss. CARDIOVASCULAR: Denies any chest pain, shortness of breath, PND, orthopnea, or leg swelling. PULMONARY: Denies any cough, hemoptysis, or wheezing. GASTROINTESTINAL: Denies any nausea, vomiting, diarrhea, constipation, abdominal pain, or GI bleed. GENITOURINARY: On hemodialysis 3 days a week. NEUROLOGY: He has altered level of consciousness. There was no signs of lateralization. No altered speech. MUSCULOSKELETAL: He had amputation of the right foot. PHYSICAL EXAMINATION: VITAL SIGNS: Blood pressure was 98/66 mmHg, heart rate was 96, respiratory rate 20, O2 saturation of 100% on room air, and temperature 97.3 degrees Fahrenheit. GENERAL: The patient is a very pleasant 52-year-old gentleman, in no apparent respiratory distress. Awake and alert. HEENT: Atraumatic and normocephalic. Anicteric. Pupils are equal, round, and reactive to light and accommodation. Conjunctiva pallor is present. NECK: JVP less than 5 cm. No carotid bruit. Carotid upstrokes 2+ bilaterally. CARDIOVASCULAR: Normal S1, S2. Regular rate and rhythm. No murmurs, gallops, or rubs. PMI is at fourth intercostal space in the midclavicular line. LUNGS: Clear to auscultation bilaterally. ABDOMEN: Soft, nontender, and nondistended. No hepatosplenomegaly. Positive bowel sounds. EXTREMITIES: Right upper extremity AV fistula, which is functional. Right lower extremity transmetatarsal amputation. LABORATORY FINDINGS: WBC 7.8, hemoglobin 14, hematocrit 44, and platelet count is 190,000. Chemistry shows sodium 131, potassium is 4.0, chloride 85, bicarbonate 25, BUN 41, creatinine 7.13. Troponin I was 0.08. Glucose is 354. Magnesium 2.3. Calcium is 9.6. Chest x-ray showed normal cardiac silhouette with no acute cardiopulmonary disease. A 2D echocardiography showed normal LV systolic function with LVEF of about 70% with grade 1 LV diastolic dysfunction and right ventricular systolic pressure measured at 20 mmHg. ASSESSMENT AND PLAN: The patient is a very unfortunate 52-year-old gentleman seen in Cardiology consultation at the request of Dr. Duong. 1. Hypotension. This could be the cause for presumptive syncopal event. The patient might have had excessive fluid withdrawal during dialysis. We may have to cut down on the blood pressure medication on the dialysis days. This requires to be adjusted by Dr. Duong or combination technician in the outpatient setting. A 2D echocardiography has shown normal LV systolic function with normal pulmonary artery pressure. 2. Transient tachycardia most likely secondary to hypotension and possible intravascular volume depletion. 3. History of hypertension. I would consider lower dose of amlodipine. I will continue with the current dose of metoprolol. 4. QT prolongation evident on electrocardiogram is most likely due to electrolyte abnormality associated with hemodialysis. We will check magnesium level. I would like to thank, Dr. Duong, for the courtesy of this consultation. Lizandro Falcon M.D. DR: HI JOB#: [id number] CC:
--- NOTE | 2017-12-06 22:59 | Cardiology Progress Note ---
Assessment/Plan Assessment/Plan 1. Hypotension, continue PO intake, adjust fluid withdrawal during HD, normal LV systolic function with normal pulmonary artery pressure. 2. Transient tachycardia most likely secondary to hypotension and possible intravascular volume depletion. 3. History of hypertension. I would consider lower dose of amlodipine. 4. QT prolongation evident on electrocardiogram is most likely due to electrolyte abnormality associated with hemodialysis, magnesium level at 2.4. Subjective Subjective No cardiac events. Denies chest pain or SOB. Objective Last 24 Hour Vital Signs Date Time Temp Pulse Resp B/P (MAP) Pulse Ox O2 Delivery O2 Flow Rate FiO2 12/06/17 19:34 Room Air 12/06/17 16:00 97.7 98 18 129/71 (90) 96 97.7 12/06/17 16:00 Room Air 12/06/17 12:00 97.7 96 18 135/73 (93) 99 97.7 12/06/17 09:00 Room Air 12/06/17 08:24 121/67 12/06/17 08:00 97.7 94 20 121/67 (85) 98 97.7 12/06/17 04:00 97.5 63 20 121/67 (85) 98 97.5 12/06/17 00:00 97.3 67 20 131/80 (97) 100 97.3 Intake and Output 12/05/17 12/06/17 19:00 07:00 Intake Total 240 ml 110 ml Balance 240 ml 110 ml Intake Oral 240 ml IV Total 110 ml # Voids 1 # Bowel Movements 9 2D Echo: LVEF 70%, Mild LVH, Grade I LVDD, RVSP 20 mmHg Microbiology Date/Time Source Procedure Growth Status 12/04/17 15:15 Blood Blood Culture - Preliminary NO GROWTH AFTER 24 HOURS Resulted 12/04/17 15:10 Blood Blood Culture - Preliminary NO GROWTH AFTER 24 HOURS Resulted 12/04/17 15:03 Wound Gram Stain - Final Resulted 12/04/17 15:03 Wound Culture - Preliminary Gram Negative Bacillus 1 Gram Negative Bacillus 2 Staphylococcus Aureus Resulted 12/04/17 15:00 Nasal Nares MRSA Culture - Final NO METHICILLIN RESISTANT STAPH AUREUS... Complete 12/04/17 15:03 Rectum VRE Culture - Final NO VANCOMYCIN RESISTANT ENTEROCOCCUS ... Complete Objective HEENT: Atraumatic and normocephalic. Anicteric. Pupils are equal, round, and reactive to light and accommodation. Conjunctiva pallor is present. NECK: JVP less than 5 cm. No carotid bruit. Carotid upstrokes 2+ bilaterally. CARDIOVASCULAR: Normal S1, S2. Regular rate and rhythm. No murmurs, gallops, or rubs. PMI is at fourth intercostal space in the midclavicular line. LUNGS: Clear to auscultation bilaterally. ABDOMEN: Soft, nontender, and nondistended. No hepatosplenomegaly. Positive bowel sounds. EXTREMITIES: Right upper extremity AV fistula, which is functional. Right lower extremity transmetatarsal amputation. Lizandro Falcon MD Dec 06, 2017 22:59
[2017-12-07] VITALS: BP 98/61
[2017-12-07 03:56] VITALS: BP 107/70
[2017-12-07 06:29] LABS: BASOPHILS % (AUTO) 1.6 % (0.0-2.0); HEMATOCRIT 43.3 % (42.0-52.0); HEMOGLOBIN 13.9 G/DL (14.2-18.0); LYMPHOCYTES % (AUTO) 24.2 % (20.0-45.0); MEAN CORPUSCULAR VOLUME 98 FL (80-99); MONOCYTES % (AUTO) 12.8 % (1.0-10.0); NEUTROPHILS % (AUTO) 58.4 % (45.0-75.0); PLATELET COUNT 230 K/UL (150-450); RED CELL DISTRIBUTION WIDTH 16.1 % (11.6-14.8); WHITE BLOOD COUNT 4.8 K/UL (4.8-10.8)
[2017-12-07] MEDS: Piperacillin/Tazobactam 2.25 GM in D5W 55 ML IVPB SCH ×2 (06:32→14:00)
[2017-12-07] MEDS: NovoLOG Insulin Flexpen SUBQ SCH ×4 (06:40→22:03)
[2017-12-07] MEDS: Heparin 5000 units/ml inj SUBQ SCH ×3 (06:40→22:02)
[2017-12-07 06:47] LABS: ALANINE AMINOTRANSFERASE 37 U/L (12-78); ALBUMIN 3.4 G/DL (3.4-5.0); ALBUMIN/GLOBULIN RATIO 0.6 (1.0-2.7); ALKALINE PHOSPHATASE 133 U/L (46-116); ANION GAP 14 mmol/L (5-15); ASPARTATE AMINO TRANSFERASE 19 U/L (15-37); BILIRUBIN,TOTAL 0.5 MG/DL (0.2-1.0); BLOOD UREA NITROGEN 52 mg/dL (7-18); CALCIUM 8.5 MG/DL (8.5-10.1); CARBON DIOXIDE 26 MMOL/L (21-32); CHLORIDE 98 MMOL/L (98-107); CREATININE 10.2 MG/DL (0.55-1.30); PHOSPHORUS 6.8 MG/DL (2.5-4.9); POTASSIUM 4.3 MMOL/L (3.5-5.1); SODIUM 138 MMOL/L (136-145)
[2017-12-07 08:00] VITALS: BP 96/62
--- NOTE | 2017-12-07 08:39 | Nephrology Progress Note ---
Assessment/Plan Assessment 1. Altered mental status. 2. End-stage renal disease. 3. Anemia of chronic kidney disease. 4. Renal osteodystrophy. 5. Hypertension, well controlled. 6. Diabetes. Plan dialysis as schedule check phos and PTH continue epoen continue antibiotic Subjective Constitutional: Reports: no symptoms HEENT: Reports: no symptoms Genitourinary: Reports: no symptoms Neurologic/Psychiatric: Reports: no symptoms Subjective alert and awake no complaints Objective Objective Last 24 Hour Vital Signs Date Time Temp Pulse Resp B/P (MAP) Pulse Ox O2 Delivery O2 Flow Rate FiO2 12/07/17 03:56 97.8 94 19 107/70 (82) 100 97.8 12/07/17 00:00 97.8 94 18 98/61 (73) 98 97.8 12/06/17 21:00 Room Air 12/06/17 20:00 97.5 99 19 93/58 (70) 100 97.5 12/06/17 19:34 Room Air 12/06/17 16:00 97.7 98 18 129/71 (90) 96 97.7 12/06/17 16:00 Room Air 12/06/17 12:00 97.7 96 18 135/73 (93) 99 97.7 12/06/17 09:00 Room Air Intake and Output 12/06/17 12/07/17 19:00 07:00 Intake Total 480 ml 480 ml Output Total 2800 ml Balance 480 ml -2320 ml Intake Oral 480 ml 480 ml Hemodialysis UF 2800 ml # Bowel Movements 2 Laboratory Tests 12/07/17 05:00: White Blood Count 4.8, Red Blood Count 4.40L, Hemoglobin 13.9L, Hematocrit 43.3 , Mean Corpuscular Volume 98, Mean Corpuscular Hemoglobin 31.5H, Mean Corpuscular Hemoglobin Concent 32.0, Red Cell Distribution Width 16.1H, Platelet Count 230, Mean Platelet Volume 7.0, Neutrophils (%) (Auto) 58.4, Lymphocytes (%) (Auto) 24.2, Monocytes (%) (Auto) 12.8H, Eosinophils (%) (Auto) 3.0, Basophils (%) (Auto) 1.6, Sodium Level 138, Potassium Level 4.3, Chloride Level 98, Carbon Dioxide Level 26, Anion Gap 14, Blood Urea Nitrogen 52H, Creatinine 10.2H, Estimat Glomerular Filtration Rate 6.5, Glucose Level 152H, Calcium Level 8.5, Phosphorus Level 6.8H, Magnesium Level 2.4, Total Bilirubin 0.5, Aspartate Amino Transf (AST/SGOT) 19, Alanine Aminotransferase (ALT/SGPT) 37, Alkaline Phosphatase 133H, Total Protein 9.1H, Albumin 3.4, Globulin 5.7, Albumin/Globulin Ratio 0.6L Height (Feet): 5 Height (Inches): 11.00 Weight (Pounds): 177 Objective HEAD AND NECK: No JVP. No LAD. No thyromegaly. Extraocular movement intact. Pupils are reactive to light and accommodation. LUNGS: Clear to auscultation. CARDIAC: Regular rate and rhythm. S1 and S2. No murmur. No rub. ABDOMEN: Soft, nontender, and nondistended. EXTREMITIES: The patient on the right has transmetatarsal amputation. Tessa Schwartz MD Dec 07, 2017 08:39
[2017-12-07] MEDS: Docusate 100mg cap ORAL SCH ×2 (09:00→21:00)
[2017-12-07] MEDS: Aspirin Baby 81mg ORAL SCH (09:42)
[2017-12-07] MEDS: Sensipar 30mg Tab ORAL SCH (09:42)
[2017-12-07 12:00] VITALS: BP 107/78
--- NOTE | 2017-12-07 13:32 | Pulmonology Progress Note ---
Assessment/Plan Problems: (1) Acute osteomyelitis of metatarsal bone of right foot (2) Sepsis (3) 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 (4) Diabetes mellitus (5) ESRD (end stage renal disease) Assessment/Plan iv abx check cultures wound care might need short term placement to get wound care and abx Subjective ROS Limited/Unobtainable: No Constitutional: Reports: no symptoms Respiratory: Reports: no symptoms Allergies: Coded Allergies: NO KNOWN ALLERGIES (Verified Allergy, Unknown, 12/04/17) Objective Last 24 Hour Vital Signs Date Time Temp Pulse Resp B/P (MAP) Pulse Ox O2 Delivery O2 Flow Rate FiO2 12/07/17 12:00 98.0 93 15 107/78 (88) 98 98.0 12/07/17 11:50 Room Air 12/07/17 08:00 98.0 95 14 96/62 (73) 98 98.0 12/07/17 03:56 97.8 94 19 107/70 (82) 100 97.8 12/07/17 00:00 97.8 94 18 98/61 (73) 98 97.8 12/06/17 21:00 Room Air 12/06/17 20:00 97.5 99 19 93/58 (70) 100 97.5 12/06/17 19:34 Room Air 12/06/17 16:00 97.7 98 18 129/71 (90) 96 97.7 12/06/17 16:00 Room Air Intake and Output 12/06/17 12/07/17 19:00 07:00 Intake Total 480 ml 480 ml Output Total 2800 ml Balance 480 ml -2320 ml Intake Oral 480 ml 480 ml Hemodialysis UF 2800 ml # Bowel Movements 2 General Appearance: WD/WN HEENT: normocephalic, atraumatic Respiratory/Chest: chest wall non-tender, lungs clear Cardiovascular: normal peripheral pulses, normal rate Abdomen: normal bowel sounds, soft, non tender Genitourinary: normal external genitalia Microbiology Date/Time Source Procedure Growth Status 12/04/17 15:15 Blood Blood Culture - Preliminary NO GROWTH AFTER 48 HOURS Resulted 12/04/17 15:10 Blood Blood Culture - Preliminary NO GROWTH AFTER 48 HOURS Resulted 12/04/17 15:03 Wound Gram Stain - Final Resulted 12/04/17 15:03 Wound Culture - Preliminary Gram Negative Bacillus 1 Providencia Rettgeri Staphylococcus Aureus Usual Skin Jeri Resulted 12/04/17 15:00 Nasal Nares MRSA Culture - Final NO METHICILLIN RESISTANT STAPH AUREUS... Complete 12/04/17 15:03 Rectum VRE Culture - Final NO VANCOMYCIN RESISTANT ENTEROCOCCUS ... Complete Laboratory Tests 12/07/17 05:00: White Blood Count 4.8, Red Blood Count 4.40L, Hemoglobin 13.9L, Hematocrit 43.3 , Mean Corpuscular Volume 98, Mean Corpuscular Hemoglobin 31.5H, Mean Corpuscular Hemoglobin Concent 32.0, Red Cell Distribution Width 16.1H, Platelet Count 230, Mean Platelet Volume 7.0, Neutrophils (%) (Auto) 58.4, Lymphocytes (%) (Auto) 24.2, Monocytes (%) (Auto) 12.8H, Eosinophils (%) (Auto) 3.0, Basophils (%) (Auto) 1.6, Sodium Level 138, Potassium Level 4.3, Chloride Level 98, Carbon Dioxide Level 26, Anion Gap 14, Blood Urea Nitrogen 52H, Creatinine 10.2H, Estimat Glomerular Filtration Rate 6.5, Glucose Level 152H, Calcium Level 8.5, Phosphorus Level 6.8H, Magnesium Level 2.4, Total Bilirubin 0.5, Aspartate Amino Transf (AST/SGOT) 19, Alanine Aminotransferase (ALT/SGPT) 37, Alkaline Phosphatase 133H, Total Protein 9.1H, Albumin 3.4, Globulin 5.7, Albumin/Globulin Ratio 0.6L Current Medications Medications (Trade) Dose Ordered Sig/Felix Route PRN Reason Start Time Stop Time Status Last Admin Dose Admin Acetaminophen (Tylenol) 650 mg Q4H PRN ORAL Mild Pain (Pain Scale 1-3) 12/05/17 19:15 01/03/18 15:14 Acetaminophen (Tylenol) 650 mg Q4H PRN ORAL fever (temp>100.5F) 12/05/17 19:15 01/03/18 15:14 Aspirin (ASA) 81 mg DAILY ORAL 12/06/17 09:00 01/04/18 08:59 12/07/17 09:42 Atorvastatin Calcium (Lipitor) 10 mg BEDTIME ORAL 12/05/17 21:00 01/03/18 20:59 12/06/17 21:21 Cinacalcet (Sensipar) 30 mg DAILY ORAL 12/06/17 09:00 01/04/18 08:59 12/07/17 09:42 Dextrose (Dextrose 50%) 25 ml Q1H PRN IV Hypoglycemia 12/05/17 18:15 01/03/18 15:14 Dextrose (Dextrose 50%) 50 ml Q1H PRN IV Hypoglycemia 12/05/17 18:15 01/03/18 15:14 Docusate Sodium (Colace) 100 mg EVERY 12 HOURS ORAL 12/05/17 21:00 01/03/18 20:59 Escitalopram Oxalate (Lexapro) 10 mg DAILY ORAL 12/06/17 09:00 01/04/18 08:59 12/07/17 09:42 Heparin Sodium (Porcine) (Heparin 5000 units/ml) 5,000 units EVERY 8 HOURS SUBQ 12/05/17 22:00 01/03/18 21:59 12/07/17 06:40 Insulin Aspart (NovoLOG) BEFORE MEALS AND HS SUBQ 12/05/17 21:00 01/03/18 17:59 12/07/17 11:59 Insulin Detemir (Levemir) 10 units BEDTIME SUBQ 12/05/17 21:00 01/03/18 20:59 12/06/17 21:37 Nitroglycerin (Ntg) 0.4 mg Q5M PRN SL Prn Chest Pain 12/05/17 17:45 01/03/18 15:14 Ondansetron HCl (Zofran) 4 mg Q6H PRN IVP Nausea & Vomiting 12/05/17 18:00 01/03/18 17:59 12/05/17 21:19 Piperacillin Sod/ Tazobactam Sod 2.25 gm/Dextrose 55 ml @ 110 mls/hr Q8HR IVPB 12/05/17 22:00 12/09/17 21:59 12/07/17 06:32 Polyethylene Glycol (Miralax) 17 gm DAILYPRN PRN ORAL Constipation 12/05/17 18:00 01/04/18 17:59 Vancomycin HCl (Vanco rx to dose) 1 ea DAILY PRN MISC Per rx protocol 12/05/17 18:00 01/04/18 17:59 Jorge Anaya MD Dec 07, 2017 13:32
--- NOTE | 2017-12-07 13:41 | General Progress Note ---
Assessment/Plan Status: stable, progressing Assessment/Plan MDD Lexapro 10mg po qam Provided ro/st Subjective Date patient seen: Dec 07, 2017 Neurologic/Psychiatric: Reports: anxiety, depressed, emotional problems Allergies: Coded Allergies: NO KNOWN ALLERGIES (Verified Allergy, Unknown, 12/04/17) Objective Last 24 Hour Vital Signs Date Time Temp Pulse Resp B/P (MAP) Pulse Ox O2 Delivery O2 Flow Rate FiO2 12/07/17 12:00 98.0 93 15 107/78 (88) 98 98.0 12/07/17 11:50 Room Air 12/07/17 08:00 98.0 95 14 96/62 (73) 98 98.0 12/07/17 03:56 97.8 94 19 107/70 (82) 100 97.8 12/07/17 00:00 97.8 94 18 98/61 (73) 98 97.8 12/06/17 21:00 Room Air 12/06/17 20:00 97.5 99 19 93/58 (70) 100 97.5 12/06/17 19:34 Room Air 12/06/17 16:00 97.7 98 18 129/71 (90) 96 97.7 12/06/17 16:00 Room Air Intake and Output 12/06/17 12/07/17 19:00 07:00 Intake Total 480 ml 480 ml Output Total 2800 ml Balance 480 ml -2320 ml Intake Oral 480 ml 480 ml Hemodialysis UF 2800 ml # Bowel Movements 2 Laboratory Tests 12/07/17 05:00: White Blood Count 4.8, Red Blood Count 4.40L, Hemoglobin 13.9L, Hematocrit 43.3 , Mean Corpuscular Volume 98, Mean Corpuscular Hemoglobin 31.5H, Mean Corpuscular Hemoglobin Concent 32.0, Red Cell Distribution Width 16.1H, Platelet Count 230, Mean Platelet Volume 7.0, Neutrophils (%) (Auto) 58.4, Lymphocytes (%) (Auto) 24.2, Monocytes (%) (Auto) 12.8H, Eosinophils (%) (Auto) 3.0, Basophils (%) (Auto) 1.6, Sodium Level 138, Potassium Level 4.3, Chloride Level 98, Carbon Dioxide Level 26, Anion Gap 14, Blood Urea Nitrogen 52H, Creatinine 10.2H, Estimat Glomerular Filtration Rate 6.5, Glucose Level 152H, Calcium Level 8.5, Phosphorus Level 6.8H, Magnesium Level 2.4, Total Bilirubin 0.5, Aspartate Amino Transf (AST/SGOT) 19, Alanine Aminotransferase (ALT/SGPT) 37, Alkaline Phosphatase 133H, Total Protein 9.1H, Albumin 3.4, Globulin 5.7, Albumin/Globulin Ratio 0.6L Height (Feet): 5 Height (Inches): 11.00 Weight (Pounds): 177 General Appearance: no apparent distress, alert Neurologic: oriented x 3, responsive Leora Bishop MD Dec 07, 2017 13:41
[2017-12-07 16:00] VITALS: BP 110/72
--- NOTE | 2017-12-07 16:42 | Infectious Diseases Prog Note ---
Assessment/Plan Problems: (1) Acute osteomyelitis of metatarsal bone of right foot Assessment & Plan: with staph aureus, Providencia rettgeri, and gram negative rods, may need surgical debridement , await vascular study , continue vancomycin and zosyn empirically pending cultures results (2) Ulcer of amputation stump of foot Assessment & Plan: with pus draining with underlying osteomyelitis of the metatarsal bones as per MRI of the right foot . 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 Assessment & Plan: with open wound draining purulent materials , due to ataph aureus and gram negative rods and underlying osteomyelitis , await wound culture and sensitivity , continue vancomycin and zosyn empiric coverage pending cultures , chief inspector ron is in progress (4) Sepsis Assessment & Plan: due to the above , continue vancomycin and zosyn empirically pending culture (5) ESRD (end stage renal disease) Assessment & Plan: continue HD as per renal Subjective Constitutional: Reports: no symptoms HEENT: Reports: no symptoms Respiratory: Reports: no symptoms Breasts: Reports: no symptoms Cardiovascular: Reports: no symptoms Gastrointestinal/Abdominal: Reports: no symptoms Genitourinary: Reports: no symptoms Neurologic: Reports: no symptoms Psychiatric: Reports: no symptoms Skin: Reports: no symptoms Endocrine: Reports: no symptoms Hematologic: Reports: no symptoms Musculoskeletal: Reports: no symptoms Allergies: Coded Allergies: NO KNOWN ALLERGIES (Verified Allergy, Unknown, 12/04/17) Objective Vital Signs Last 24 Hour Vital Signs Date Time Temp Pulse Resp B/P (MAP) Pulse Ox O2 Delivery O2 Flow Rate FiO2 12/07/17 12:00 98.0 93 15 107/78 (88) 98 98.0 12/07/17 11:50 Room Air 12/07/17 08:00 98.0 95 14 96/62 (73) 98 98.0 12/07/17 03:56 97.8 94 19 107/70 (82) 100 97.8 12/07/17 00:00 97.8 94 18 98/61 (73) 98 97.8 12/06/17 21:00 Room Air 12/06/17 20:00 97.5 99 19 93/58 (70) 100 97.5 12/06/17 19:34 Room Air Height (Feet): 5 Height (Inches): 11.00 Weight (Pounds): 177 General Appearance: WD/WN, no acute distress HEENT: normocephalic, atraumatic, anicteric, mucous membranes moist Respiratory/Chest: chest wall non-tender, lungs clear, no respiratory distress , no accessory muscle use, decreased breath sounds, crackles/rales Cardiovascular: normal peripheral pulses, normal rate, regular rhythm, no gallop/murmur, no JVD Abdomen: normal bowel sounds, soft, non tender, no organomegaly, non distended , no mass, no scars Extremities: no cyanosis, no clubbing Skin: no rash, no lesions, no ulcers Neurologic/Psychiatric: alert, oriented x 3, responsive Lymphatic: no neck adenopathy, no groin adenopathy Musculoskeletal: normal muscle bulk, no effusion Laboratory Tests Test 12/07/17 05:00 White Blood Count 4.8 K/UL (4.8-10.8) Red Blood Count 4.40 M/UL (4.70-6.10) L Hemoglobin 13.9 G/DL (14.2-18.0) L Hematocrit 43.3 % (42.0-52.0) Mean Corpuscular Volume 98 FL (80-99) Mean Corpuscular Hemoglobin 31.5 PG (27.0-31.0) H Mean Corpuscular Hemoglobin Concent 32.0 G/DL (32.0-36.0) Red Cell Distribution Width 16.1 % (11.6-14.8) H Platelet Count 230 K/UL (150-450) Mean Platelet Volume 7.0 FL (6.5-10.1) Neutrophils (%) (Auto) 58.4 % (45.0-75.0) Lymphocytes (%) (Auto) 24.2 % (20.0-45.0) Monocytes (%) (Auto) 12.8 % (1.0-10.0) H Eosinophils (%) (Auto) 3.0 % (0.0-3.0) Basophils (%) (Auto) 1.6 % (0.0-2.0) Sodium Level 138 MMOL/L (136-145) Potassium Level 4.3 MMOL/L (3.5-5.1) Chloride Level 98 MMOL/L (98-107) Carbon Dioxide Level 26 MMOL/L (21-32) Anion Gap 14 mmol/L (5-15) Blood Urea Nitrogen 52 mg/dL (7-18) H Creatinine 10.2 MG/DL (0.55-1.30) H Estimat Glomerular Filtration Rate 6.5 mL/min (>60) Glucose Level 152 MG/DL (74-106) H Calcium Level 8.5 MG/DL (8.5-10.1) Phosphorus Level 6.8 MG/DL (2.5-4.9) H Magnesium Level 2.4 MG/DL (1.8-2.4) Total Bilirubin 0.5 MG/DL (0.2-1.0) Aspartate Amino Transf (AST/SGOT) 19 U/L (15-37) Alanine Aminotransferase (ALT/SGPT) 37 U/L (12-78) Alkaline Phosphatase 133 U/L (46-116) H Total Protein 9.1 G/DL (6.4-8.2) H Albumin 3.4 G/DL (3.4-5.0) Globulin 5.7 g/dL Albumin/Globulin Ratio 0.6 (1.0-2.7) L Current Medications Medications (Trade) Dose Ordered Sig/Felix Route PRN Reason Start Time Stop Time Status Last Admin Dose Admin Acetaminophen (Tylenol) 650 mg Q4H PRN ORAL Mild Pain (Pain Scale 1-3) 12/05/17 19:15 01/03/18 15:14 Acetaminophen (Tylenol) 650 mg Q4H PRN ORAL fever (temp>100.5F) 12/05/17 19:15 01/03/18 15:14 Aspirin (ASA) 81 mg DAILY ORAL 12/06/17 09:00 01/04/18 08:59 12/07/17 09:42 Atorvastatin Calcium (Lipitor) 10 mg BEDTIME ORAL 12/05/17 21:00 01/03/18 20:59 12/06/17 21:21 Cinacalcet (Sensipar) 30 mg DAILY ORAL 12/06/17 09:00 01/04/18 08:59 12/07/17 09:42 Ciprofloxacin 100 ml @ 100 mls/hr Q24H IV 12/07/17 16:00 12/14/17 15:59 12/07/17 16:27 Dextrose (Dextrose 50%) 25 ml Q1H PRN IV Hypoglycemia 12/05/17 18:15 01/03/18 15:14 Dextrose (Dextrose 50%) 50 ml Q1H PRN IV Hypoglycemia 12/05/17 18:15 01/03/18 15:14 Docusate Sodium (Colace) 100 mg EVERY 12 HOURS ORAL 12/05/17 21:00 01/03/18 20:59 Escitalopram Oxalate (Lexapro) 10 mg DAILY ORAL 12/06/17 09:00 01/04/18 08:59 12/07/17 09:42 Heparin Sodium (Porcine) (Heparin 5000 units/ml) 5,000 units EVERY 8 HOURS SUBQ 12/05/17 22:00 01/03/18 21:59 12/07/17 14:50 Insulin Aspart (NovoLOG) BEFORE MEALS AND HS SUBQ 12/05/17 21:00 01/03/18 17:59 12/07/17 16:36 Insulin Detemir (Levemir) 10 units BEDTIME SUBQ 12/05/17 21:00 01/03/18 20:59 12/06/17 21:37 Nitroglycerin (Ntg) 0.4 mg Q5M PRN SL Prn Chest Pain 12/05/17 17:45 01/03/18 15:14 Ondansetron HCl (Zofran) 4 mg Q6H PRN IVP Nausea & Vomiting 12/05/17 18:00 01/03/18 17:59 12/05/17 21:19 Polyethylene Glycol (Miralax) 17 gm DAILYPRN PRN ORAL Constipation 12/05/17 18:00 01/04/18 17:59 Vancomycin HCl (Vanco rx to dose) 1 ea DAILY PRN MISC Per rx protocol 12/05/17 18:00 01/04/18 17:59 Cira Ceja M.D. Dec 07, 2017 16:42
--- NOTE | 2017-12-07 17:49 | Internal Med Progress Note ---
Subjective Date of Service: Dec 07, 2017 Physician Name Miles Lobo Attending Physician Shahram Duong MD Current Medications Medications (Trade) Dose Ordered Sig/Felix Route PRN Reason Start Time Stop Time Status Last Admin Dose Admin Acetaminophen (Tylenol) 650 mg Q4H PRN ORAL Mild Pain (Pain Scale 1-3) 12/05/17 19:15 01/03/18 15:14 Acetaminophen (Tylenol) 650 mg Q4H PRN ORAL fever (temp>100.5F) 12/05/17 19:15 01/03/18 15:14 Aspirin (ASA) 81 mg DAILY ORAL 12/06/17 09:00 01/04/18 08:59 12/07/17 09:42 Atorvastatin Calcium (Lipitor) 10 mg BEDTIME ORAL 12/05/17 21:00 01/03/18 20:59 12/06/17 21:21 Cinacalcet (Sensipar) 30 mg DAILY ORAL 12/06/17 09:00 01/04/18 08:59 12/07/17 09:42 Ciprofloxacin 100 ml @ 100 mls/hr Q24H IV 12/07/17 16:00 12/14/17 15:59 12/07/17 16:27 Dextrose (Dextrose 50%) 25 ml Q1H PRN IV Hypoglycemia 12/05/17 18:15 01/03/18 15:14 Dextrose (Dextrose 50%) 50 ml Q1H PRN IV Hypoglycemia 12/05/17 18:15 01/03/18 15:14 Docusate Sodium (Colace) 100 mg EVERY 12 HOURS ORAL 12/05/17 21:00 01/03/18 20:59 Escitalopram Oxalate (Lexapro) 10 mg DAILY ORAL 12/06/17 09:00 01/04/18 08:59 12/07/17 09:42 Heparin Sodium (Porcine) (Heparin 5000 units/ml) 5,000 units EVERY 8 HOURS SUBQ 12/05/17 22:00 01/03/18 21:59 12/07/17 14:50 Insulin Aspart (NovoLOG) BEFORE MEALS AND HS SUBQ 12/05/17 21:00 01/03/18 17:59 12/07/17 16:36 Insulin Detemir (Levemir) 10 units BEDTIME SUBQ 12/05/17 21:00 01/03/18 20:59 12/06/17 21:37 Nitroglycerin (Ntg) 0.4 mg Q5M PRN SL Prn Chest Pain 12/05/17 17:45 01/03/18 15:14 Ondansetron HCl (Zofran) 4 mg Q6H PRN IVP Nausea & Vomiting 12/05/17 18:00 01/03/18 17:59 12/05/17 21:19 Polyethylene Glycol (Miralax) 17 gm DAILYPRN PRN ORAL Constipation 12/05/17 18:00 01/04/18 17:59 Vancomycin HCl (Vanco rx to dose) 1 ea DAILY PRN MISC Per rx protocol 12/05/17 18:00 01/04/18 17:59 Allergies: Coded Allergies: NO KNOWN ALLERGIES (Verified Allergy, Unknown, 12/04/17) ROS Limited/Unobtainable: No Constitutional: Reports: no symptoms HEENT: Reports: no symptoms Cardiovascular: Reports: no symptoms Respiratory: Reports: no symptoms Gastrointestinal/Abdominal: Reports: no symptoms Genitourinary: Reports: no symptoms Neurologic/Psychiatric: Reports: no symptoms Subjective 52 YO M admitted with altered mental status. Now osteomyelitis right foot. Cover for Int Med-Dr Duong Objective Last Vital Signs Date Time Temp Pulse Resp B/P (MAP) Pulse Ox O2 Delivery O2 Flow Rate FiO2 12/07/17 16:00 98.2 97 16 110/72 (85) 99 98.2 12/07/17 11:50 Room Air General Appearance: WD/WN, no apparent distress, alert EENT: PERRL/EOMI, normal ENT inspection Neck: non-tender, normal alignment, supple, normal inspection Cardiovascular: normal peripheral pulses, normal rate, regular rhythm, no gallop/murmur, no JVD Respiratory/Chest: chest wall non-tender, lungs clear, normal breath sounds, no respiratory distress, no accessory muscle use Abdomen: normal bowel sounds, non tender, soft, no organomegaly, no mass Extremities: normal range of motion, other Edema: trace edema 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, no motor/sensory deficits Skin: normal pigmentation, warm/dry Laboratory Tests Test 12/07/17 05:00 White Blood Count 4.8 K/UL (4.8-10.8) Red Blood Count 4.40 M/UL (4.70-6.10) L Hemoglobin 13.9 G/DL (14.2-18.0) L Hematocrit 43.3 % (42.0-52.0) Mean Corpuscular Volume 98 FL (80-99) Mean Corpuscular Hemoglobin 31.5 PG (27.0-31.0) H Mean Corpuscular Hemoglobin Concent 32.0 G/DL (32.0-36.0) Red Cell Distribution Width 16.1 % (11.6-14.8) H Platelet Count 230 K/UL (150-450) Mean Platelet Volume 7.0 FL (6.5-10.1) Neutrophils (%) (Auto) 58.4 % (45.0-75.0) Lymphocytes (%) (Auto) 24.2 % (20.0-45.0) Monocytes (%) (Auto) 12.8 % (1.0-10.0) H Eosinophils (%) (Auto) 3.0 % (0.0-3.0) Basophils (%) (Auto) 1.6 % (0.0-2.0) Sodium Level 138 MMOL/L (136-145) Potassium Level 4.3 MMOL/L (3.5-5.1) Chloride Level 98 MMOL/L (98-107) Carbon Dioxide Level 26 MMOL/L (21-32) Anion Gap 14 mmol/L (5-15) Blood Urea Nitrogen 52 mg/dL (7-18) H Creatinine 10.2 MG/DL (0.55-1.30) H Estimat Glomerular Filtration Rate 6.5 mL/min (>60) Glucose Level 152 MG/DL (74-106) H Calcium Level 8.5 MG/DL (8.5-10.1) Phosphorus Level 6.8 MG/DL (2.5-4.9) H Magnesium Level 2.4 MG/DL (1.8-2.4) Total Bilirubin 0.5 MG/DL (0.2-1.0) Aspartate Amino Transf (AST/SGOT) 19 U/L (15-37) Alanine Aminotransferase (ALT/SGPT) 37 U/L (12-78) Alkaline Phosphatase 133 U/L (46-116) H Total Protein 9.1 G/DL (6.4-8.2) H Albumin 3.4 G/DL (3.4-5.0) Globulin 5.7 g/dL Albumin/Globulin Ratio 0.6 (1.0-2.7) L Intake and Output 12/06/17 12/07/17 19:00 07:00 Intake Total 480 ml 480 ml Output Total 2800 ml Balance 480 ml -2320 ml Intake Oral 480 ml 480 ml Hemodialysis UF 2800 ml # Bowel Movements 2 Assessment/Plan Problem List: (1) Altered mental status (2) Encephalopathy (3) HTN (hypertension) (4) Diabetic nephropathy (5) Diabetic neuropathy (6) Acute osteomyelitis of metatarsal bone of right foot Assessment & Plan: Staph aureus and providencia. See ID and podiatry note. No surgery at this time. Continue ciprofloxacin and zosyn (7) Diabetes mellitus Assessment & Plan: Continue novolog and levemir (8) ESRD (end stage renal disease) Assessment & Plan: See nephology note. Next hemodialysis 12/08/17 Status: not improved Miles Lobo MD Dec 07, 2017 17:49
[2017-12-07 20:01] VITALS: BP 132/83
[2017-12-07] MEDS: Levemir Flexpen SUBQ SCH (22:03)
[2017-12-08] VITALS: BP 102/59
[2017-12-08 04:00] VITALS: BP 126/51
[2017-12-08] MEDS: Heparin 5000 units/ml inj SUBQ SCH ×3 (05:47→21:45)
[2017-12-08] MEDS: NovoLOG Insulin Flexpen SUBQ SCH ×4 (05:48→20:39)
[2017-12-08 07:15] LABS: ANION GAP 14 mmol/L (5-15); BLOOD UREA NITROGEN 70 mg/dL (7-18); CALCIUM 8.5 MG/DL (8.5-10.1); CARBON DIOXIDE 26 MMOL/L (21-32); CHLORIDE 95 MMOL/L (98-107); CREATININE 12.6 MG/DL (0.55-1.30); POTASSIUM 4.8 MMOL/L (3.5-5.1); SODIUM 135 MMOL/L (136-145)
[2017-12-08 07:31] LABS: BASOPHILS % (AUTO) 1.5 % (0.0-2.0); EOSINOPHILS % (AUTO) 3.1 % (0.0-3.0); HEMATOCRIT 43.5 % (42.0-52.0); HEMOGLOBIN 14.1 G/DL (14.2-18.0); LYMPHOCYTES % (AUTO) 23.7 % (20.0-45.0); MEAN CORPUSCULAR VOLUME 99 FL (80-99); NEUTROPHILS % (AUTO) 61.7 % (45.0-75.0); PLATELET COUNT 249 K/UL (150-450); RED BLOOD COUNT 4.42 M/UL (4.70-6.10); RED CELL DISTRIBUTION WIDTH 16.3 % (11.6-14.8); WHITE BLOOD COUNT 5.1 K/UL (4.8-10.8)
[2017-12-08 08:00] VITALS: BP 143/87
[2017-12-08] MEDS: Docusate 100mg cap ORAL SCH ×2 (08:08→20:40)
[2017-12-08] MEDS: Aspirin Baby 81mg ORAL SCH (08:08)
[2017-12-08] MEDS: Sensipar 30mg Tab ORAL SCH (08:08)
--- NOTE | 2017-12-08 10:56 | General Progress Note ---
Assessment/Plan Status: stable Assessment/Plan MDD Lexapro 10mg po qam Provided ro/st klonopin 1mg po qhs Subjective Neurologic/Psychiatric: Reports: anxiety Allergies: Coded Allergies: NO KNOWN ALLERGIES (Verified Allergy, Unknown, 12/04/17) Subjective the pt was happy however stated that he needs to take more meds at night since he gets more anxious at night and wakes up during the night several times. Objective Last 24 Hour Vital Signs Date Time Temp Pulse Resp B/P (MAP) Pulse Ox O2 Delivery O2 Flow Rate FiO2 12/08/17 09:00 Room Air 12/08/17 08:00 98.0 82 18 143/87 (105) 100 98.0 12/08/17 04:00 97.5 82 16 126/51 (76) 98 97.5 12/08/17 00:00 97.7 88 17 102/59 (73) 93 97.7 12/07/17 21:00 Room Air 12/07/17 20:01 97.5 92 16 132/83 (99) 100 97.5 12/07/17 16:00 98.2 97 16 110/72 (85) 99 98.2 12/07/17 12:00 98.0 93 15 107/78 (88) 98 98.0 12/07/17 11:50 Room Air Intake and Output 12/07/17 12/08/17 19:00 07:00 Intake Total 1000 ml Balance 1000 ml Intake Oral 1000 ml # Voids 4 3 # Bowel Movements 1 Laboratory Tests 12/08/17 06:40: White Blood Count 5.1, Red Blood Count 4.42L, Hemoglobin 14.1L, Hematocrit 43.5 , Mean Corpuscular Volume 99, Mean Corpuscular Hemoglobin 31.8H, Mean Corpuscular Hemoglobin Concent 32.3, Red Cell Distribution Width 16.3H, Platelet Count 249, Mean Platelet Volume 6.8, Neutrophils (%) (Auto) 61.7, Lymphocytes (%) (Auto) 23.7, Monocytes (%) (Auto) 10.0, Eosinophils (%) (Auto) 3.1H, Basophils (%) (Auto) 1.5, Sodium Level 135L, Potassium Level 4.8, Chloride Level 95L, Carbon Dioxide Level 26, Anion Gap 14, Blood Urea Nitrogen 70H, Creatinine 12.6H, Estimat Glomerular Filtration Rate 5.1, Glucose Level 180H, Calcium Level 8.5, Random Vancomycin Level 24.9 Height (Feet): 5 Height (Inches): 11.00 Weight (Pounds): 186 General Appearance: no apparent distress, alert Neurologic: alert, oriented x 3, responsive, normal mood/affect Leora Bishop MD Dec 08, 2017 10:56
--- NOTE | 2017-12-08 11:20 | Nephrology Progress Note ---
Assessment/Plan Assessment 1. Altered mental status. 2. End-stage renal disease. 3. Anemia of chronic kidney disease. 4. Renal osteodystrophy. 5. Hypertension, well controlled. 6. Diabetes. Plan dialysis as schedule check phos and PTH continue epoen continue antibiotic Subjective Constitutional: Reports: no symptoms HEENT: Reports: no symptoms Genitourinary: Reports: no symptoms Neurologic/Psychiatric: Reports: no symptoms Subjective alert and awake no complaints Objective Objective Last 24 Hour Vital Signs Date Time Temp Pulse Resp B/P (MAP) Pulse Ox O2 Delivery O2 Flow Rate FiO2 12/08/17 09:00 Room Air 12/08/17 08:00 98.0 82 18 143/87 (105) 100 98.0 12/08/17 04:00 97.5 82 16 126/51 (76) 98 97.5 12/08/17 00:00 97.7 88 17 102/59 (73) 93 97.7 12/07/17 21:00 Room Air 12/07/17 20:01 97.5 92 16 132/83 (99) 100 97.5 12/07/17 16:00 98.2 97 16 110/72 (85) 99 98.2 12/07/17 12:00 98.0 93 15 107/78 (88) 98 98.0 12/07/17 11:50 Room Air Intake and Output 12/07/17 12/08/17 19:00 07:00 Intake Total 1000 ml Balance 1000 ml Intake Oral 1000 ml # Voids 4 3 # Bowel Movements 1 Laboratory Tests 12/08/17 06:40: White Blood Count 5.1, Red Blood Count 4.42L, Hemoglobin 14.1L, Hematocrit 43.5 , Mean Corpuscular Volume 99, Mean Corpuscular Hemoglobin 31.8H, Mean Corpuscular Hemoglobin Concent 32.3, Red Cell Distribution Width 16.3H, Platelet Count 249, Mean Platelet Volume 6.8, Neutrophils (%) (Auto) 61.7, Lymphocytes (%) (Auto) 23.7, Monocytes (%) (Auto) 10.0, Eosinophils (%) (Auto) 3.1H, Basophils (%) (Auto) 1.5, Sodium Level 135L, Potassium Level 4.8, Chloride Level 95L, Carbon Dioxide Level 26, Anion Gap 14, Blood Urea Nitrogen 70H, Creatinine 12.6H, Estimat Glomerular Filtration Rate 5.1, Glucose Level 180H, Calcium Level 8.5, Random Vancomycin Level 24.9 Height (Feet): 5 Height (Inches): 11.00 Weight (Pounds): 186 Objective HEAD AND NECK: No JVP. No LAD. No thyromegaly. Extraocular movement intact. Pupils are reactive to light and accommodation. LUNGS: Clear to auscultation. CARDIAC: Regular rate and rhythm. S1 and S2. No murmur. No rub. ABDOMEN: Soft, nontender, and nondistended. EXTREMITIES: The patient on the right has transmetatarsal amputation. Tessa Schwartz MD Dec 08, 2017 11:20
[2017-12-08 12:00] VITALS: BP 139/88
--- NOTE | 2017-12-08 14:00 | Pulmonology Progress Note ---
Assessment/Plan Problems: (1) Acute osteomyelitis of metatarsal bone of right foot (2) Sepsis (3) 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 (4) Diabetes mellitus (5) ESRD (end stage renal disease) Assessment/Plan iv abx check cultures wound care might need short term placement to get wound care and abx dc planning to dc home with IV abx. pt doesn't want to go to a rehab facility Subjective ROS Limited/Unobtainable: No Constitutional: Reports: no symptoms HEENT: Repors: no symptoms Respiratory: Reports: no symptoms Allergies: Coded Allergies: NO KNOWN ALLERGIES (Verified Allergy, Unknown, 12/04/17) Objective Last 24 Hour Vital Signs Date Time Temp Pulse Resp B/P (MAP) Pulse Ox O2 Delivery O2 Flow Rate FiO2 12/08/17 12:00 98.2 80 18 139/88 (105) 99 98.2 12/08/17 09:00 Room Air 12/08/17 08:00 98.0 82 18 143/87 (105) 100 98.0 12/08/17 04:00 97.5 82 16 126/51 (76) 98 97.5 12/08/17 00:00 97.7 88 17 102/59 (73) 93 97.7 12/07/17 21:00 Room Air 12/07/17 20:01 97.5 92 16 132/83 (99) 100 97.5 12/07/17 16:00 98.2 97 16 110/72 (85) 99 98.2 Intake and Output 12/07/17 12/08/17 19:00 07:00 Intake Total 1000 ml Balance 1000 ml Intake Oral 1000 ml # Voids 4 3 # Bowel Movements 1 General Appearance: WD/WN HEENT: normocephalic, atraumatic Respiratory/Chest: chest wall non-tender, lungs clear, normal breath sounds Cardiovascular: normal peripheral pulses, normal rate Abdomen: normal bowel sounds, soft, non tender Genitourinary: normal external genitalia 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, abnormal gait Laboratory Tests 12/08/17 06:40: White Blood Count 5.1, Red Blood Count 4.42L, Hemoglobin 14.1L, Hematocrit 43.5 , Mean Corpuscular Volume 99, Mean Corpuscular Hemoglobin 31.8H, Mean Corpuscular Hemoglobin Concent 32.3, Red Cell Distribution Width 16.3H, Platelet Count 249, Mean Platelet Volume 6.8, Neutrophils (%) (Auto) 61.7, Lymphocytes (%) (Auto) 23.7, Monocytes (%) (Auto) 10.0, Eosinophils (%) (Auto) 3.1H, Basophils (%) (Auto) 1.5, Sodium Level 135L, Potassium Level 4.8, Chloride Level 95L, Carbon Dioxide Level 26, Anion Gap 14, Blood Urea Nitrogen 70H, Creatinine 12.6H, Estimat Glomerular Filtration Rate 5.1, Glucose Level 180H, Calcium Level 8.5, Random Vancomycin Level 24.9 Current Medications Medications (Trade) Dose Ordered Sig/Felix Route PRN Reason Start Time Stop Time Status Last Admin Dose Admin Acetaminophen (Tylenol) 650 mg Q4H PRN ORAL Mild Pain (Pain Scale 1-3) 12/05/17 19:15 01/03/18 15:14 Acetaminophen (Tylenol) 650 mg Q4H PRN ORAL fever (temp>100.5F) 12/05/17 19:15 01/03/18 15:14 Aspirin (ASA) 81 mg DAILY ORAL 12/06/17 09:00 01/04/18 08:59 12/08/17 08:08 Atorvastatin Calcium (Lipitor) 10 mg BEDTIME ORAL 12/05/17 21:00 01/03/18 20:59 12/07/17 22:02 Cinacalcet (Sensipar) 30 mg DAILY ORAL 12/06/17 09:00 01/04/18 08:59 12/08/17 08:08 Ciprofloxacin 200 ml @ 200 mls/hr Q24H IV 12/08/17 16:00 12/15/17 15:59 Clonazepam (KlonoPIN) 1 mg BEDTIME ORAL 12/08/17 21:00 12/15/17 20:59 Dextrose (Dextrose 50%) 25 ml Q1H PRN IV Hypoglycemia 12/05/17 18:15 01/03/18 15:14 Dextrose (Dextrose 50%) 50 ml Q1H PRN IV Hypoglycemia 12/05/17 18:15 01/03/18 15:14 Docusate Sodium (Colace) 100 mg EVERY 12 HOURS ORAL 12/05/17 21:00 01/03/18 20:59 Escitalopram Oxalate (Lexapro) 10 mg DAILY ORAL 12/06/17 09:00 01/04/18 08:59 12/08/17 08:08 Heparin Sodium (Porcine) (Heparin 5000 units/ml) 5,000 units EVERY 8 HOURS SUBQ 12/05/17 22:00 01/03/18 21:59 12/08/17 13:28 Insulin Aspart (NovoLOG) BEFORE MEALS AND HS SUBQ 12/05/17 21:00 01/03/18 17:59 12/08/17 11:56 Insulin Detemir (Levemir) 10 units BEDTIME SUBQ 12/05/17 21:00 01/03/18 20:59 12/07/17 22:03 Nitroglycerin (Ntg) 0.4 mg Q5M PRN SL Prn Chest Pain 12/05/17 17:45 01/03/18 15:14 Ondansetron HCl (Zofran) 4 mg Q6H PRN IVP Nausea & Vomiting 12/05/17 18:00 01/03/18 17:59 12/05/17 21:19 Polyethylene Glycol (Miralax) 17 gm DAILYPRN PRN ORAL Constipation 12/05/17 18:00 01/04/18 17:59 Vancomycin HCl (Vanco rx to dose) 1 ea DAILY PRN MISC Per rx protocol 12/05/17 18:00 01/04/18 17:59 Vancomycin HCl 1 gm/Dextrose 275 ml @ 183.708 mls/hr ONCE ONCE IVPB 12/09/17 18:00 12/09/17 19:29 Jorge Anaya MD Dec 08, 2017 14:00
--- NOTE | 2017-12-08 14:40 | Infectious Diseases Prog Note ---
Assessment/Plan Problems: (1) Acute osteomyelitis of metatarsal bone of right foot Assessment & Plan: with methicillin sensitive staph aureus, Providencia rettgeri, and proteus mirabilis , may need surgical debridement , after vascular study is done as per aircraft engine mechanic , will switch antibiotics to cefazolin and ertapenem after HD (2) Ulcer of amputation stump of foot Assessment & Plan: with pus draining with underlying osteomyelitis of the metatarsal bones as per MRI of the right foot . 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 Assessment & Plan: with open wound draining purulent materials , due to ataph aureus and gram negative rods and underlying osteomyelitis , await wound culture and sensitivity , continue vancomycin and zosyn empiric coverage pending cultures , aircraft engine mechanic eval is in progress (4) Sepsis Assessment & Plan: due to the above , continue cefazolin and ertapenem empirically pending culture (5) ESRD (end stage renal disease) Assessment & Plan: continue HD as per renal Subjective Constitutional: Reports: no symptoms HEENT: Reports: no symptoms Respiratory: Reports: no symptoms Breasts: Reports: no symptoms Cardiovascular: Reports: no symptoms Gastrointestinal/Abdominal: Reports: no symptoms Genitourinary: Reports: no symptoms Neurologic: Reports: no symptoms Psychiatric: Reports: no symptoms Skin: Reports: ulcer Endocrine: Reports: no symptoms Hematologic: Reports: no symptoms Musculoskeletal: Reports: no symptoms Allergies: Coded Allergies: NO KNOWN ALLERGIES (Verified Allergy, Unknown, 12/04/17) Objective Vital Signs Last 24 Hour Vital Signs Date Time Temp Pulse Resp B/P (MAP) Pulse Ox O2 Delivery O2 Flow Rate FiO2 12/08/17 12:00 98.2 80 18 139/88 (105) 99 98.2 12/08/17 09:00 Room Air 12/08/17 08:00 98.0 82 18 143/87 (105) 100 98.0 12/08/17 04:00 97.5 82 16 126/51 (76) 98 97.5 12/08/17 00:00 97.7 88 17 102/59 (73) 93 97.7 12/07/17 21:00 Room Air 12/07/17 20:01 97.5 92 16 132/83 (99) 100 97.5 12/07/17 16:00 98.2 97 16 110/72 (85) 99 98.2 Height (Feet): 5 Height (Inches): 11.00 Weight (Pounds): 186 General Appearance: WD/WN, no acute distress HEENT: normocephalic, atraumatic, anicteric, mucous membranes moist, PERRL, supple, no JVD Respiratory/Chest: chest wall non-tender, lungs clear, normal breath sounds, no respiratory distress, no accessory muscle use, decreased breath sounds Cardiovascular: normal peripheral pulses, normal rate, regular rhythm, no gallop/murmur, no JVD Abdomen: normal bowel sounds, soft, non tender, no organomegaly, non distended , no mass, no scars Extremities: no cyanosis, no clubbing Skin: no rash, no lesions, no ulcers Neurologic/Psychiatric: alert, responsive Lymphatic: no neck adenopathy, no groin adenopathy Musculoskeletal: normal muscle bulk, no effusion Laboratory Tests Test 12/08/17 06:40 White Blood Count 5.1 K/UL (4.8-10.8) Red Blood Count 4.42 M/UL (4.70-6.10) L Hemoglobin 14.1 G/DL (14.2-18.0) L Hematocrit 43.5 % (42.0-52.0) Mean Corpuscular Volume 99 FL (80-99) Mean Corpuscular Hemoglobin 31.8 PG (27.0-31.0) H Mean Corpuscular Hemoglobin Concent 32.3 G/DL (32.0-36.0) Red Cell Distribution Width 16.3 % (11.6-14.8) H Platelet Count 249 K/UL (150-450) Mean Platelet Volume 6.8 FL (6.5-10.1) Neutrophils (%) (Auto) 61.7 % (45.0-75.0) Lymphocytes (%) (Auto) 23.7 % (20.0-45.0) Monocytes (%) (Auto) 10.0 % (1.0-10.0) Eosinophils (%) (Auto) 3.1 % (0.0-3.0) H Basophils (%) (Auto) 1.5 % (0.0-2.0) Sodium Level 135 MMOL/L (136-145) L Potassium Level 4.8 MMOL/L (3.5-5.1) Chloride Level 95 MMOL/L (98-107) L Carbon Dioxide Level 26 MMOL/L (21-32) Anion Gap 14 mmol/L (5-15) Blood Urea Nitrogen 70 mg/dL (7-18) H Creatinine 12.6 MG/DL (0.55-1.30) H Estimat Glomerular Filtration Rate 5.1 mL/min (>60) Glucose Level 180 MG/DL (74-106) H Calcium Level 8.5 MG/DL (8.5-10.1) Random Vancomycin Level 24.9 ug/mL Current Medications Medications (Trade) Dose Ordered Sig/Felix Route PRN Reason Start Time Stop Time Status Last Admin Dose Admin Acetaminophen (Tylenol) 650 mg Q4H PRN ORAL Mild Pain (Pain Scale 1-3) 12/05/17 19:15 01/03/18 15:14 Acetaminophen (Tylenol) 650 mg Q4H PRN ORAL fever (temp>100.5F) 12/05/17 19:15 01/03/18 15:14 Aspirin (ASA) 81 mg DAILY ORAL 12/06/17 09:00 01/04/18 08:59 12/08/17 08:08 Atorvastatin Calcium (Lipitor) 10 mg BEDTIME ORAL 12/05/17 21:00 01/03/18 20:59 12/07/17 22:02 Cefazolin Sodium 50 ml @ 100 mls/hr [id number] IVPB 12/11/17 09:00 12/18/17 08:59 UNV Cinacalcet (Sensipar) 30 mg DAILY ORAL 12/06/17 09:00 01/04/18 08:59 12/08/17 08:08 Clonazepam (KlonoPIN) 1 mg BEDTIME ORAL 12/08/17 21:00 12/15/17 20:59 Dextrose (Dextrose 50%) 25 ml Q1H PRN IV Hypoglycemia 12/05/17 18:15 01/03/18 15:14 Dextrose (Dextrose 50%) 50 ml Q1H PRN IV Hypoglycemia 12/05/17 18:15 01/03/18 15:14 Docusate Sodium (Colace) 100 mg EVERY 12 HOURS ORAL 12/05/17 21:00 01/03/18 20:59 Escitalopram Oxalate (Lexapro) 10 mg DAILY ORAL 12/06/17 09:00 01/04/18 08:59 12/08/17 08:08 Heparin Sodium (Porcine) (Heparin 5000 units/ml) 5,000 units EVERY 8 HOURS SUBQ 12/05/17 22:00 01/03/18 21:59 12/08/17 13:28 Insulin Aspart (NovoLOG) BEFORE MEALS AND HS SUBQ 12/05/17 21:00 01/03/18 17:59 12/08/17 11:56 Insulin Detemir (Levemir) 10 units BEDTIME SUBQ 12/05/17 21:00 01/03/18 20:59 12/07/17 22:03 Nitroglycerin (Ntg) 0.4 mg Q5M PRN SL Prn Chest Pain 12/05/17 17:45 01/03/18 15:14 Ondansetron HCl (Zofran) 4 mg Q6H PRN IVP Nausea & Vomiting 12/05/17 18:00 01/03/18 17:59 12/05/17 21:19 Polyethylene Glycol (Miralax) 17 gm DAILYPRN PRN ORAL Constipation 12/05/17 18:00 01/04/18 17:59 Cira Ceja M.D. Dec 08, 2017 14:40
[2017-12-08 15:39] VITALS: BP 129/83
[2017-12-08] MEDS ORDERED: Cipro 400mg/D5W 200ml IV SCH (16:00)
[2017-12-08] MEDS ORDERED: CEFAZOLIN SOD IVPB SCH (18:00)
[2017-12-08] MEDS ORDERED: ceFAZolin 2gm/50ml Premix 50 ML IVPB SCH (18:00)
[2017-12-08] MEDS ORDERED: D5W IVPB SCH (18:00)
--- NOTE | 2017-12-08 19:06 | Cardiology Progress Note ---
Assessment/Plan Assessment/Plan 1. Hypotension, continue PO intake, adjust fluid withdrawal during HD, normal LV systolic function with normal pulmonary artery pressure. 2. Transient tachycardia, resolved, most likely secondary to hypotension and possible intravascular volume depletion. 3. History of hypertension, currently controlled. 4. QT prolongation evident on electrocardiogram is most likely due to electrolyte abnormality associated with hemodialysis, magnesium level at 2.4. Subjective Subjective No cardiac events. Denies chest pain or SOB. Objective Last 24 Hour Vital Signs Date Time Temp Pulse Resp B/P (MAP) Pulse Ox O2 Delivery O2 Flow Rate FiO2 12/08/17 15:39 97.8 90 20 129/83 (98) 100 97.8 12/08/17 12:00 98.2 80 18 139/88 (105) 99 98.2 12/08/17 09:00 Room Air 12/08/17 08:00 98.0 82 18 143/87 (105) 100 98.0 12/08/17 04:00 97.5 82 16 126/51 (76) 98 97.5 12/08/17 00:00 97.7 88 17 102/59 (73) 93 97.7 12/07/17 21:00 Room Air 12/07/17 20:01 97.5 92 16 132/83 (99) 100 97.5 Intake and Output 12/07/17 12/08/17 19:00 07:00 Intake Total 1000 ml Balance 1000 ml Intake Oral 1000 ml # Voids 4 3 # Bowel Movements 1 2D Echo: LVEF 70%, Mild LVH, Grade I LVDD, RVSP 20 mmHg Laboratory Tests Test 12/08/17 06:40 White Blood Count 5.1 K/UL (4.8-10.8) Red Blood Count 4.42 M/UL (4.70-6.10) L Hemoglobin 14.1 G/DL (14.2-18.0) L Hematocrit 43.5 % (42.0-52.0) Mean Corpuscular Volume 99 FL (80-99) Mean Corpuscular Hemoglobin 31.8 PG (27.0-31.0) H Mean Corpuscular Hemoglobin Concent 32.3 G/DL (32.0-36.0) Red Cell Distribution Width 16.3 % (11.6-14.8) H Platelet Count 249 K/UL (150-450) Mean Platelet Volume 6.8 FL (6.5-10.1) Neutrophils (%) (Auto) 61.7 % (45.0-75.0) Lymphocytes (%) (Auto) 23.7 % (20.0-45.0) Monocytes (%) (Auto) 10.0 % (1.0-10.0) Eosinophils (%) (Auto) 3.1 % (0.0-3.0) H Basophils (%) (Auto) 1.5 % (0.0-2.0) Sodium Level 135 MMOL/L (136-145) L Potassium Level 4.8 MMOL/L (3.5-5.1) Chloride Level 95 MMOL/L (98-107) L Carbon Dioxide Level 26 MMOL/L (21-32) Anion Gap 14 mmol/L (5-15) Blood Urea Nitrogen 70 mg/dL (7-18) H Creatinine 12.6 MG/DL (0.55-1.30) H Estimat Glomerular Filtration Rate 5.1 mL/min (>60) Glucose Level 180 MG/DL (74-106) H Calcium Level 8.5 MG/DL (8.5-10.1) Random Vancomycin Level 24.9 ug/mL Objective HEENT: Atraumatic and normocephalic. Anicteric. Pupils are equal, round, and reactive to light and accommodation. Conjunctiva pallor is present. NECK: JVP less than 5 cm. No carotid bruit. Carotid upstrokes 2+ bilaterally. CARDIOVASCULAR: Normal S1, S2. Regular rate and rhythm. No murmurs, gallops, or rubs. PMI is at fourth intercostal space in the midclavicular line. LUNGS: Clear to auscultation bilaterally. ABDOMEN: Soft, nontender, and nondistended. No hepatosplenomegaly. Positive bowel sounds. EXTREMITIES: Right upper extremity AV fistula, which is functional. Right lower extremity transmetatarsal amputation. Lizandro Falcon MD Dec 08, 2017 19:06
--- NOTE | 2017-12-08 19:30 | Internal Med Progress Note ---
Subjective Date of Service: Dec 08, 2017 Physician Name LashellMiles Attending Physician Shahram Duong MD Current Medications Medications (Trade) Dose Ordered Sig/Felix Route PRN Reason Start Time Stop Time Status Last Admin Dose Admin Acetaminophen (Tylenol) 650 mg Q4H PRN ORAL Mild Pain (Pain Scale 1-3) 12/05/17 19:15 01/03/18 15:14 Acetaminophen (Tylenol) 650 mg Q4H PRN ORAL fever (temp>100.5F) 12/05/17 19:15 01/03/18 15:14 Aspirin (ASA) 81 mg DAILY ORAL 12/06/17 09:00 01/04/18 08:59 12/08/17 08:08 Atorvastatin Calcium (Lipitor) 10 mg BEDTIME ORAL 12/05/17 21:00 01/03/18 20:59 12/07/17 22:02 Cefazolin Sodium 50 ml @ 100 mls/hr QTUE-SUN@1800 IVPB 12/11/17 18:00 12/18/17 17:59 Cefazolin Sodium 3 gm/Dextrose 110 ml @ 220 mls/hr QWEEK IVPB 12/08/17 18:00 12/15/17 17:59 12/08/17 18:49 Cinacalcet (Sensipar) 30 mg DAILY ORAL 12/06/17 09:00 01/04/18 08:59 12/08/17 08:08 Clonazepam (KlonoPIN) 1 mg BEDTIME ORAL 12/08/17 21:00 12/15/17 20:59 Dextrose (Dextrose 50%) 25 ml Q1H PRN IV Hypoglycemia 12/05/17 18:15 01/03/18 15:14 Dextrose (Dextrose 50%) 50 ml Q1H PRN IV Hypoglycemia 12/05/17 18:15 01/03/18 15:14 Docusate Sodium (Colace) 100 mg EVERY 12 HOURS ORAL 12/05/17 21:00 01/03/18 20:59 Ertapenem 0.5 gm/ Sodium Chloride 55 ml @ 110 mls/hr [id number]@2000 IVPB 12/08/17 20:00 12/13/17 19:59 Escitalopram Oxalate (Lexapro) 10 mg DAILY ORAL 12/06/17 09:00 01/04/18 08:59 12/08/17 08:08 Heparin Sodium (Porcine) (Heparin 5000 units/ml) 5,000 units EVERY 8 HOURS SUBQ 12/05/17 22:00 01/03/18 21:59 12/08/17 13:28 Insulin Aspart (NovoLOG) BEFORE MEALS AND HS SUBQ 12/05/17 21:00 01/03/18 17:59 12/08/17 17:01 Insulin Detemir (Levemir) 10 units BEDTIME SUBQ 12/05/17 21:00 01/03/18 20:59 12/07/17 22:03 Nitroglycerin (Ntg) 0.4 mg Q5M PRN SL Prn Chest Pain 12/05/17 17:45 01/03/18 15:14 Ondansetron HCl (Zofran) 4 mg Q6H PRN IVP Nausea & Vomiting 12/05/17 18:00 01/03/18 17:59 12/05/17 21:19 Polyethylene Glycol (Miralax) 17 gm DAILYPRN PRN ORAL Constipation 12/05/17 18:00 01/04/18 17:59 Allergies: Coded Allergies: NO KNOWN ALLERGIES (Verified Allergy, Unknown, 12/04/17) ROS Limited/Unobtainable: No Constitutional: Reports: no symptoms HEENT: Reports: no symptoms Cardiovascular: Reports: no symptoms Respiratory: Reports: no symptoms Gastrointestinal/Abdominal: Reports: no symptoms Genitourinary: Reports: no symptoms Neurologic/Psychiatric: Reports: no symptoms Subjective 52 YO M admitted with altered mental status. Now osteomyelitis right foot. Cover for Int Chuck-Dr Duong Objective Last Vital Signs Date Time Temp Pulse Resp B/P (MAP) Pulse Ox O2 Delivery O2 Flow Rate FiO2 12/08/17 15:39 97.8 90 20 129/83 (98) 100 97.8 12/08/17 09:00 Room Air Laboratory Tests Test 12/08/17 06:40 White Blood Count 5.1 K/UL (4.8-10.8) Red Blood Count 4.42 M/UL (4.70-6.10) L Hemoglobin 14.1 G/DL (14.2-18.0) L Hematocrit 43.5 % (42.0-52.0) Mean Corpuscular Volume 99 FL (80-99) Mean Corpuscular Hemoglobin 31.8 PG (27.0-31.0) H Mean Corpuscular Hemoglobin Concent 32.3 G/DL (32.0-36.0) Red Cell Distribution Width 16.3 % (11.6-14.8) H Platelet Count 249 K/UL (150-450) Mean Platelet Volume 6.8 FL (6.5-10.1) Neutrophils (%) (Auto) 61.7 % (45.0-75.0) Lymphocytes (%) (Auto) 23.7 % (20.0-45.0) Monocytes (%) (Auto) 10.0 % (1.0-10.0) Eosinophils (%) (Auto) 3.1 % (0.0-3.0) H Basophils (%) (Auto) 1.5 % (0.0-2.0) Sodium Level 135 MMOL/L (136-145) L Potassium Level 4.8 MMOL/L (3.5-5.1) Chloride Level 95 MMOL/L (98-107) L Carbon Dioxide Level 26 MMOL/L (21-32) Anion Gap 14 mmol/L (5-15) Blood Urea Nitrogen 70 mg/dL (7-18) H Creatinine 12.6 MG/DL (0.55-1.30) H Estimat Glomerular Filtration Rate 5.1 mL/min (>60) Glucose Level 180 MG/DL (74-106) H Calcium Level 8.5 MG/DL (8.5-10.1) Random Vancomycin Level 24.9 ug/mL Intake and Output 12/07/17 12/08/17 19:00 07:00 Intake Total 1000 ml Balance 1000 ml Intake Oral 1000 ml # Voids 4 3 # Bowel Movements 1 Objective General Appearance: WD/WN, no apparent distress, alert EENT: PERRL/EOMI, normal ENT inspection Neck: non-tender, normal alignment, supple, normal inspection Cardiovascular: normal peripheral pulses, normal rate, regular rhythm, no gallop/murmur, no JVD Respiratory/Chest: chest wall non-tender, lungs clear, normal breath sounds, no respiratory distress, no accessory muscle use Abdomen: normal bowel sounds, non tender, soft, no organomegaly, no mass Extremities: normal range of motion, other Edema: trace edema Neurologic: chocolate temperer II-XII grossly normal, no motor/sensory deficits Skin: normal pigmentation, warm/dry Assessment/Plan Problem List: (1) Altered mental status (2) Encephalopathy (3) HTN (hypertension) (4) Diabetic nephropathy (5) Diabetic neuropathy (6) Acute osteomyelitis of metatarsal bone of right foot Assessment & Plan: Staph aureus and providencia. See ID and podiatry note. Continue ciprofloxacin and zosyn. Needs revision of stump. Needs angiogram of right lower extremity prior to surgery-see podiatry note. (7) Diabetes mellitus Assessment & Plan: Continue novolog and levemir (8) ESRD (end stage renal disease) Assessment & Plan: See nephology note. Next hemodialysis 12/08/17 Assessment/Plan Transfer to [facility] for angiogram and stump revision-see podiatry note. Miles Lobo MD Dec 08, 2017 19:30
[2017-12-08 20:00] VITALS: BP 113/64
[2017-12-08] MEDS ORDERED: Ertapenem 0.5 GM in NS 55 ML IVPB SCH (20:00)
[2017-12-08] MEDS: Levemir Flexpen SUBQ SCH (20:38)
[2017-12-09] VITALS: BP 114/73
[2017-12-09 04:00] VITALS: BP 112/74
[2017-12-09] MEDS: NovoLOG Insulin Flexpen SUBQ SCH ×4 (06:01→21:04)
[2017-12-09] MEDS: Heparin 5000 units/ml inj SUBQ SCH ×3 (06:02→22:18)
[2017-12-09 07:26] LABS: BASOPHILS % (AUTO) 1.4 % (0.0-2.0); EOSINOPHILS % (AUTO) 3.3 % (0.0-3.0); HEMATOCRIT 45.7 % (42.0-52.0); HEMOGLOBIN 14.9 G/DL (14.2-18.0); LYMPHOCYTES % (AUTO) 22.3 % (20.0-45.0); MEAN CORPUSCULAR VOLUME 100 FL (80-99); MONOCYTES % (AUTO) 11.6 % (1.0-10.0); NEUTROPHILS % (AUTO) 61.4 % (45.0-75.0); PLATELET COUNT 229 K/UL (150-450); RED BLOOD COUNT 4.59 M/UL (4.70-6.10); RED CELL DISTRIBUTION WIDTH 16.7 % (11.6-14.8); WHITE BLOOD COUNT 5.4 K/UL (4.8-10.8)
[2017-12-09 07:37] LABS: ANION GAP 17 mmol/L (5-15); BLOOD UREA NITROGEN 61 mg/dL (7-18); CALCIUM 8.8 MG/DL (8.5-10.1); CARBON DIOXIDE 23 MMOL/L (21-32); CHLORIDE 98 MMOL/L (98-107); CREATININE 11.6 MG/DL (0.55-1.30); POTASSIUM 4.8 MMOL/L (3.5-5.1); SODIUM 137 MMOL/L (136-145)
[2017-12-09 08:13] VITALS: BP 114/76
[2017-12-09] MEDS: Sensipar 30mg Tab ORAL SCH (08:46)
[2017-12-09] MEDS: Docusate 100mg cap ORAL SCH ×4 (08:46→21:06)
[2017-12-09] MEDS: Aspirin Baby 81mg ORAL SCH (08:46)
[2017-12-09] MEDS ORDERED: Ertapenem 0.5 GM in NS 55 ML IVPB SCH (09:00)
[2017-12-09] MEDS ORDERED: Cefepime HCl 2 GM in D5W 55 ML IVPB SCH (09:00)
--- NOTE | 2017-12-09 09:56 | Nephrology Progress Note ---
Assessment/Plan Assessment 1. Altered mental status. 2. End-stage renal disease. 3. Anemia of chronic kidney disease. 4. Renal osteodystrophy. 5. Hypertension, well controlled. 6. Diabetes. Plan dialysis as schedule check phos and PTH continue epoen continue antibiotic Subjective Constitutional: Reports: no symptoms HEENT: Reports: no symptoms Genitourinary: Reports: no symptoms Neurologic/Psychiatric: Reports: no symptoms Subjective alert and awake no complaints Objective Objective Last 24 Hour Vital Signs Date Time Temp Pulse Resp B/P (MAP) Pulse Ox O2 Delivery O2 Flow Rate FiO2 12/09/17 08:13 97.7 86 18 114/76 (89) 99 97.7 12/09/17 04:00 97.2 86 18 112/74 (87) 100 97.2 12/09/17 00:00 97.4 90 18 114/73 (87) 98 97.4 12/08/17 20:24 Room Air 12/08/17 20:00 98.3 100 18 113/64 (80) 98 98.3 12/08/17 19:42 Room Air 12/08/17 15:40 Room Air 12/08/17 15:39 97.8 90 20 129/83 (98) 100 97.8 12/08/17 12:00 98.2 80 18 139/88 (105) 99 98.2 Intake and Output 12/08/17 12/09/17 19:00 07:00 Intake Total 405 ml Output Total 3000 ml Balance -2595 ml Intake Oral 240 ml IV Total 165 ml Peritoneal Dialysis UF 3000 ml # Voids 3 # Bowel Movements 2 1 Laboratory Tests 12/09/17 05:30: White Blood Count 5.4, Red Blood Count 4.59L, Hemoglobin 14.9, Hematocrit 45.7, Mean Corpuscular Volume 100H, Mean Corpuscular Hemoglobin 32.6H, Mean Corpuscular Hemoglobin Concent 32.7, Red Cell Distribution Width 16.7H, Platelet Count 229, Mean Platelet Volume 6.8, Neutrophils (%) (Auto) 61.4, Lymphocytes (%) (Auto) 22.3, Monocytes (%) (Auto) 11.6H, Eosinophils (%) (Auto) 3.3H, Basophils (%) (Auto) 1.4, Sodium Level 137, Potassium Level 4.8, Chloride Level 98, Carbon Dioxide Level 23, Anion Gap 17H, Blood Urea Nitrogen 61H, Creatinine 11.6H, Estimat Glomerular Filtration Rate 5.7, Glucose Level 135H, Calcium Level 8.8 Height (Feet): 5 Height (Inches): 11.00 Weight (Pounds): 186 Objective HEAD AND NECK: No JVP. No LAD. No thyromegaly. Extraocular movement intact. Pupils are reactive to light and accommodation. LUNGS: Clear to auscultation. CARDIAC: Regular rate and rhythm. S1 and S2. No murmur. No rub. ABDOMEN: Soft, nontender, and nondistended. EXTREMITIES: The patient on the right has transmetatarsal amputation. Tessa Schwartz MD Dec 09, 2017 09:56
[2017-12-09 11:46] VITALS: BP 124/79
--- NOTE | 2017-12-09 12:52 | Pulmonology Progress Note ---
Assessment/Plan Problems: (1) Acute osteomyelitis of metatarsal bone of right foot (2) Sepsis (3) 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 (4) Diabetes mellitus (5) ESRD (end stage renal disease) Assessment/Plan all reviewed no new complains iv abx check cultures wound care might need short term placement to get wound care and abx dc planning to dc home with IV abx. pt doesn't want to go to a rehab facility Subjective ROS Limited/Unobtainable: No Constitutional: Reports: no symptoms HEENT: Repors: no symptoms Respiratory: Reports: no symptoms Allergies: Coded Allergies: NO KNOWN ALLERGIES (Verified Allergy, Unknown, 12/04/17) Objective Last 24 Hour Vital Signs Date Time Temp Pulse Resp B/P (MAP) Pulse Ox O2 Delivery O2 Flow Rate FiO2 12/09/17 11:46 97.0 93 20 124/79 (94) 100 97.0 12/09/17 08:13 97.7 86 18 114/76 (89) 99 97.7 12/09/17 04:00 97.2 86 18 112/74 (87) 100 97.2 12/09/17 00:00 97.4 90 18 114/73 (87) 98 97.4 12/08/17 20:24 Room Air 12/08/17 20:00 98.3 100 18 113/64 (80) 98 98.3 12/08/17 19:42 Room Air 12/08/17 15:40 Room Air 12/08/17 15:39 97.8 90 20 129/83 (98) 100 97.8 Intake and Output 12/08/17 12/09/17 19:00 07:00 Intake Total 405 ml Output Total 3000 ml Balance -2595 ml Intake Oral 240 ml IV Total 165 ml Peritoneal Dialysis UF 3000 ml # Voids 3 # Bowel Movements 2 1 General Appearance: WD/WN HEENT: normocephalic, atraumatic Respiratory/Chest: chest wall non-tender, lungs clear Cardiovascular: normal peripheral pulses, normal rate Genitourinary: normal external genitalia Extremities: no clubbing Skin: no lesions Laboratory Tests 12/09/17 05:30: White Blood Count 5.4, Red Blood Count 4.59L, Hemoglobin 14.9, Hematocrit 45.7, Mean Corpuscular Volume 100H, Mean Corpuscular Hemoglobin 32.6H, Mean Corpuscular Hemoglobin Concent 32.7, Red Cell Distribution Width 16.7H, Platelet Count 229, Mean Platelet Volume 6.8, Neutrophils (%) (Auto) 61.4, Lymphocytes (%) (Auto) 22.3, Monocytes (%) (Auto) 11.6H, Eosinophils (%) (Auto) 3.3H, Basophils (%) (Auto) 1.4, Sodium Level 137, Potassium Level 4.8, Chloride Level 98, Carbon Dioxide Level 23, Anion Gap 17H, Blood Urea Nitrogen 61H, Creatinine 11.6H, Estimat Glomerular Filtration Rate 5.7, Glucose Level 135H, Calcium Level 8.8 Current Medications Medications (Trade) Dose Ordered Sig/Felix Route PRN Reason Start Time Stop Time Status Last Admin Dose Admin Acetaminophen (Tylenol) 650 mg Q4H PRN ORAL Mild Pain (Pain Scale 1-3) 12/05/17 19:15 01/03/18 15:14 Acetaminophen (Tylenol) 650 mg Q4H PRN ORAL fever (temp>100.5F) 12/05/17 19:15 01/03/18 15:14 Aspirin (ASA) 81 mg DAILY ORAL 12/06/17 09:00 01/04/18 08:59 12/09/17 08:46 Atorvastatin Calcium (Lipitor) 10 mg BEDTIME ORAL 12/05/17 21:00 01/03/18 20:59 12/08/17 20:40 Cefazolin Sodium 50 ml @ 100 mls/hr QTUE-SUN@1800 IVPB 12/11/17 18:00 12/18/17 17:59 Cefazolin Sodium 3 gm/Dextrose 110 ml @ 220 mls/hr QWEEK IVPB 12/08/17 18:00 12/15/17 17:59 12/08/17 18:49 Cinacalcet (Sensipar) 30 mg DAILY ORAL 12/06/17 09:00 01/04/18 08:59 12/09/17 08:46 Clonazepam (KlonoPIN) 1 mg BEDTIME ORAL 12/08/17 21:00 12/15/17 20:59 12/08/17 20:40 Dextrose (Dextrose 50%) 25 ml Q1H PRN IV Hypoglycemia 12/05/17 18:15 01/03/18 15:14 Dextrose (Dextrose 50%) 50 ml Q1H PRN IV Hypoglycemia 12/05/17 18:15 01/03/18 15:14 Docusate Sodium (Colace) 100 mg EVERY 12 HOURS ORAL 12/05/17 21:00 01/03/18 20:59 12/08/17 20:40 Ertapenem 0.5 gm/ Sodium Chloride 55 ml @ 110 mls/hr [id number]@2000 IVPB 12/08/17 20:00 12/13/17 19:59 12/08/17 20:15 Escitalopram Oxalate (Lexapro) 10 mg DAILY ORAL 12/06/17 09:00 01/04/18 08:59 12/09/17 08:46 Heparin Sodium (Porcine) (Heparin 5000 units/ml) 5,000 units EVERY 8 HOURS SUBQ 12/05/17 22:00 01/03/18 21:59 12/09/17 06:02 Insulin Aspart (NovoLOG) BEFORE MEALS AND HS SUBQ 12/05/17 21:00 01/03/18 17:59 12/09/17 12:04 Insulin Detemir (Levemir) 10 units BEDTIME SUBQ 12/05/17 21:00 01/03/18 20:59 12/08/17 20:38 Nitroglycerin (Ntg) 0.4 mg Q5M PRN SL Prn Chest Pain 12/05/17 17:45 01/03/18 15:14 Ondansetron HCl (Zofran) 4 mg Q6H PRN IVP Nausea & Vomiting 12/05/17 18:00 01/03/18 17:59 12/05/17 21:19 Polyethylene Glycol (Miralax) 17 gm DAILYPRN PRN ORAL Constipation 12/05/17 18:00 01/04/18 17:59 Jorge Anaya MD Dec 09, 2017 12:52
--- NOTE | 2017-12-09 15:51 | General Progress Note ---
Assessment/Plan Assessment/Plan MDD Lexapro 10mg po qam Provided ro/st klonopin 1mg po qhs Subjective Neurologic/Psychiatric: Reports: anxiety, depressed, emotional problems Allergies: Coded Allergies: NO KNOWN ALLERGIES (Verified Allergy, Unknown, 12/04/17) Objective Last 24 Hour Vital Signs Date Time Temp Pulse Resp B/P (MAP) Pulse Ox O2 Delivery O2 Flow Rate FiO2 12/09/17 11:46 97.0 93 20 124/79 (94) 100 97.0 12/09/17 08:13 97.7 86 18 114/76 (89) 99 97.7 12/09/17 04:00 97.2 86 18 112/74 (87) 100 97.2 12/09/17 00:00 97.4 90 18 114/73 (87) 98 97.4 12/08/17 20:24 Room Air 12/08/17 20:00 98.3 100 18 113/64 (80) 98 98.3 12/08/17 19:42 Room Air Intake and Output 12/08/17 12/09/17 19:00 07:00 Intake Total 405 ml Output Total 3000 ml Balance -2595 ml Intake Oral 240 ml IV Total 165 ml Peritoneal Dialysis UF 3000 ml # Voids 3 # Bowel Movements 2 1 Laboratory Tests 12/09/17 05:30: White Blood Count 5.4, Red Blood Count 4.59L, Hemoglobin 14.9, Hematocrit 45.7, Mean Corpuscular Volume 100H, Mean Corpuscular Hemoglobin 32.6H, Mean Corpuscular Hemoglobin Concent 32.7, Red Cell Distribution Width 16.7H, Platelet Count 229, Mean Platelet Volume 6.8, Neutrophils (%) (Auto) 61.4, Lymphocytes (%) (Auto) 22.3, Monocytes (%) (Auto) 11.6H, Eosinophils (%) (Auto) 3.3H, Basophils (%) (Auto) 1.4, Sodium Level 137, Potassium Level 4.8, Chloride Level 98, Carbon Dioxide Level 23, Anion Gap 17H, Blood Urea Nitrogen 61H, Creatinine 11.6H, Estimat Glomerular Filtration Rate 5.7, Glucose Level 135H, Calcium Level 8.8 Height (Feet): 5 Height (Inches): 11.00 Weight (Pounds): 186 General Appearance: no apparent distress, alert Neurologic: oriented x 3, responsive, depressed affect Leora Bishop MD Dec 09, 2017 15:51
[2017-12-09 16:10] VITALS: BP 127/80
--- NOTE | 2017-12-09 17:13 | General Progress Note ---
Progress Note Progress Note Patient seen and examined Consult dictated # [id number] Petr Alexis MD Dec 09, 2017 17:13
[2017-12-09] MEDS ORDERED: Vancomycin 1gm/D5W 275ml IVPB ONE ×2 (18:00)
[2017-12-09 20:00] VITALS: BP 119/80
--- NOTE | 2017-12-09 20:10 | Internal Med Progress Note ---
Subjective Date of Service: Dec 09, 2017 Physician Name Miles Lobo Attending Physician Shahram Duong MD Current Medications Medications (Trade) Dose Ordered Sig/Felix Route PRN Reason Start Time Stop Time Status Last Admin Dose Admin Acetaminophen (Tylenol) 650 mg Q4H PRN ORAL Mild Pain (Pain Scale 1-3) 12/05/17 19:15 01/03/18 15:14 Acetaminophen (Tylenol) 650 mg Q4H PRN ORAL fever (temp>100.5F) 12/05/17 19:15 01/03/18 15:14 Aspirin (ASA) 81 mg DAILY ORAL 12/06/17 09:00 01/04/18 08:59 12/09/17 08:46 Atorvastatin Calcium (Lipitor) 10 mg BEDTIME ORAL 12/05/17 21:00 01/03/18 20:59 12/08/17 20:40 Cefazolin Sodium 50 ml @ 100 mls/hr QTUE-SUN@1800 IVPB 12/11/17 18:00 12/18/17 17:59 Cefazolin Sodium 3 gm/Dextrose 110 ml @ 220 mls/hr QWEEK IVPB 12/08/17 18:00 12/15/17 17:59 12/08/17 18:49 Cinacalcet (Sensipar) 30 mg DAILY ORAL 12/06/17 09:00 01/04/18 08:59 12/09/17 08:46 Clonazepam (KlonoPIN) 1 mg BEDTIME ORAL 12/08/17 21:00 12/15/17 20:59 12/08/17 20:40 Dextrose (Dextrose 50%) 25 ml Q1H PRN IV Hypoglycemia 12/05/17 18:15 01/03/18 15:14 Dextrose (Dextrose 50%) 50 ml Q1H PRN IV Hypoglycemia 12/05/17 18:15 01/03/18 15:14 Docusate Sodium (Colace) 100 mg EVERY 12 HOURS ORAL 12/05/17 21:00 01/03/18 20:59 12/08/17 20:40 Ertapenem 0.5 gm/ Sodium Chloride 55 ml @ 110 mls/hr [id number]@2000 IVPB 12/08/17 20:00 12/13/17 19:59 12/08/17 20:15 Escitalopram Oxalate (Lexapro) 10 mg DAILY ORAL 12/06/17 09:00 01/04/18 08:59 12/09/17 08:46 Heparin Sodium (Porcine) (Heparin 5000 units/ml) 5,000 units EVERY 8 HOURS SUBQ 12/05/17 22:00 01/03/18 21:59 12/09/17 14:23 Insulin Aspart (NovoLOG) BEFORE MEALS AND HS SUBQ 12/05/17 21:00 01/03/18 17:59 12/09/17 17:01 Insulin Detemir (Levemir) 10 units BEDTIME SUBQ 12/05/17 21:00 01/03/18 20:59 12/08/17 20:38 Nitroglycerin (Ntg) 0.4 mg Q5M PRN SL Prn Chest Pain 12/05/17 17:45 01/03/18 15:14 Ondansetron HCl (Zofran) 4 mg Q6H PRN IVP Nausea & Vomiting 12/05/17 18:00 01/03/18 17:59 12/05/17 21:19 Polyethylene Glycol (Miralax) 17 gm DAILYPRN PRN ORAL Constipation 12/05/17 18:00 01/04/18 17:59 Allergies: Coded Allergies: NO KNOWN ALLERGIES (Verified Allergy, Unknown, 12/04/17) ROS Limited/Unobtainable: No Constitutional: Reports: no symptoms HEENT: Reports: no symptoms Cardiovascular: Reports: no symptoms Respiratory: Reports: no symptoms Gastrointestinal/Abdominal: Reports: no symptoms Genitourinary: Reports: no symptoms Neurologic/Psychiatric: Reports: no symptoms Subjective 52 YO M admitted with altered mental status. Now osteomyelitis right foot. Cover for Int Med-Dr Duong. Await transfer to . [facility] [place] Objective Last Vital Signs Date Time Temp Pulse Resp B/P (MAP) Pulse Ox O2 Delivery O2 Flow Rate FiO2 12/09/17 16:10 97.9 97 20 127/80 (96) 100 97.9 12/09/17 09:00 Room Air Laboratory Tests Test 12/09/17 05:30 White Blood Count 5.4 K/UL (4.8-10.8) Red Blood Count 4.59 M/UL (4.70-6.10) L Hemoglobin 14.9 G/DL (14.2-18.0) Hematocrit 45.7 % (42.0-52.0) Mean Corpuscular Volume 100 FL (80-99) H Mean Corpuscular Hemoglobin 32.6 PG (27.0-31.0) H Mean Corpuscular Hemoglobin Concent 32.7 G/DL (32.0-36.0) Red Cell Distribution Width 16.7 % (11.6-14.8) H Platelet Count 229 K/UL (150-450) Mean Platelet Volume 6.8 FL (6.5-10.1) Neutrophils (%) (Auto) 61.4 % (45.0-75.0) Lymphocytes (%) (Auto) 22.3 % (20.0-45.0) Monocytes (%) (Auto) 11.6 % (1.0-10.0) H Eosinophils (%) (Auto) 3.3 % (0.0-3.0) H Basophils (%) (Auto) 1.4 % (0.0-2.0) Sodium Level 137 MMOL/L (136-145) Potassium Level 4.8 MMOL/L (3.5-5.1) Chloride Level 98 MMOL/L (98-107) Carbon Dioxide Level 23 MMOL/L (21-32) Anion Gap 17 mmol/L (5-15) H Blood Urea Nitrogen 61 mg/dL (7-18) H Creatinine 11.6 MG/DL (0.55-1.30) H Estimat Glomerular Filtration Rate 5.7 mL/min (>60) Glucose Level 135 MG/DL (74-106) H Calcium Level 8.8 MG/DL (8.5-10.1) Intake and Output 12/08/17 12/09/17 19:00 07:00 Intake Total 405 ml Output Total 3000 ml Balance -2595 ml Intake Oral 240 ml IV Total 165 ml Peritoneal Dialysis UF 3000 ml # Voids 3 # Bowel Movements 2 1 Objective General Appearance: WD/WN, no apparent distress, alert EENT: PERRL/EOMI, normal ENT inspection Neck: non-tender, normal alignment, supple, normal inspection Cardiovascular: normal peripheral pulses, normal rate, regular rhythm, no gallop/murmur, no JVD Respiratory/Chest: chest wall non-tender, lungs clear, normal breath sounds, no respiratory distress, no accessory muscle use Abdomen: normal bowel sounds, non tender, soft, no organomegaly, no mass Extremities: normal range of motion, other Edema: trace edema Neurologic: hypoid gear generator II-XII grossly normal, no motor/sensory deficits Skin: normal pigmentation, warm/dry Assessment/Plan Problem List: (1) Altered mental status (2) Encephalopathy (3) HTN (hypertension) (4) Diabetic nephropathy (5) Diabetic neuropathy (6) Acute osteomyelitis of metatarsal bone of right foot Assessment & Plan: Staph aureus and providencia. See ID and podiatry note. Continue ciprofloxacin and zosyn. Needs revision of stump. Needs angiogram of right lower extremity prior to surgery-see podiatry note. (7) Diabetes mellitus Assessment & Plan: Continue novolog and levemir (8) ESRD (end stage renal disease) Assessment & Plan: See nephology note. Next hemodialysis 12/08/17 Status: progressing Assessment/Plan Transfer to [facility] for angiogram and stump revision-see podiatry note. Miles Lobo MD Dec 09, 2017 20:10
[2017-12-09] MEDS: Levemir Flexpen SUBQ SCH (21:05)
--- NOTE | 2017-12-09 21:51 | Infectious Diseases Prog Note ---
Assessment/Plan Problems: (1) Acute osteomyelitis of metatarsal bone of right foot Assessment & Plan: with methicillin sensitive staph aureus, Providencia rettgeri, and proteus mirabilis , will need surgical revision of his right stump , after vascular study evaluation is done as per service desk associate , continue cefazolin and ertapenem after HD for left foot osteomyelitis for 6 weeks (2) Ulcer of amputation stump of foot Assessment & Plan: with pus draining with underlying osteomyelitis of the metatarsal bones as per MRI of the right foot . 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 Assessment & Plan: with open wound draining purulent materials , due to ataph aureus and gram negative rods and underlying osteomyelitis , await wound culture and sensitivity , continue vancomycin and zosyn empiric coverage pending cultures , service desk associate eval is in progress (4) Sepsis Assessment & Plan: due to the above , continue cefazolin and ertapenem for 6 weeks to treat for osteomyelitis of the left foot stump (5) ESRD (end stage renal disease) Assessment & Plan: continue HD as per renal Subjective Constitutional: Reports: no symptoms HEENT: Reports: no symptoms Respiratory: Reports: no symptoms Breasts: Reports: no symptoms Cardiovascular: Reports: no symptoms Gastrointestinal/Abdominal: Reports: no symptoms Genitourinary: Reports: no symptoms Neurologic: Reports: no symptoms Psychiatric: Reports: no symptoms Skin: Reports: ulcer Endocrine: Reports: no symptoms Hematologic: Reports: no symptoms Musculoskeletal: Reports: no symptoms Allergies: Coded Allergies: NO KNOWN ALLERGIES (Verified Allergy, Unknown, 12/04/17) Objective Vital Signs Last 24 Hour Vital Signs Date Time Temp Pulse Resp B/P (MAP) Pulse Ox O2 Delivery O2 Flow Rate FiO2 12/09/17 20:00 98.0 99 18 119/80 (93) 99 98.0 12/09/17 16:10 97.9 97 20 127/80 (96) 100 97.9 12/09/17 11:46 97.0 93 20 124/79 (94) 100 97.0 12/09/17 09:00 Room Air 12/09/17 08:13 97.7 86 18 114/76 (89) 99 97.7 12/09/17 04:00 97.2 86 18 112/74 (87) 100 97.2 12/09/17 00:00 97.4 90 18 114/73 (87) 98 97.4 Height (Feet): 5 Height (Inches): 11.00 Weight (Pounds): 186 General Appearance: WD/WN, no acute distress HEENT: normocephalic, atraumatic, anicteric, mucous membranes moist, PERRL Respiratory/Chest: chest wall non-tender, lungs clear, normal breath sounds, no respiratory distress, no accessory muscle use Cardiovascular: normal peripheral pulses, normal rate, regular rhythm, no gallop/murmur, no JVD Abdomen: normal bowel sounds, soft, non tender, no organomegaly, non distended , no mass, no scars Genitourinary: normal external genitalia Extremities: no cyanosis, no clubbing Skin: no rash, no lesions, ulcers - right stump wound with exudate Neurologic/Psychiatric: alert, oriented x 3, responsive Lymphatic: no neck adenopathy, no groin adenopathy Musculoskeletal: normal muscle bulk Laboratory Tests Test 12/09/17 05:30 White Blood Count 5.4 K/UL (4.8-10.8) Red Blood Count 4.59 M/UL (4.70-6.10) L Hemoglobin 14.9 G/DL (14.2-18.0) Hematocrit 45.7 % (42.0-52.0) Mean Corpuscular Volume 100 FL (80-99) H Mean Corpuscular Hemoglobin 32.6 PG (27.0-31.0) H Mean Corpuscular Hemoglobin Concent 32.7 G/DL (32.0-36.0) Red Cell Distribution Width 16.7 % (11.6-14.8) H Platelet Count 229 K/UL (150-450) Mean Platelet Volume 6.8 FL (6.5-10.1) Neutrophils (%) (Auto) 61.4 % (45.0-75.0) Lymphocytes (%) (Auto) 22.3 % (20.0-45.0) Monocytes (%) (Auto) 11.6 % (1.0-10.0) H Eosinophils (%) (Auto) 3.3 % (0.0-3.0) H Basophils (%) (Auto) 1.4 % (0.0-2.0) Sodium Level 137 MMOL/L (136-145) Potassium Level 4.8 MMOL/L (3.5-5.1) Chloride Level 98 MMOL/L (98-107) Carbon Dioxide Level 23 MMOL/L (21-32) Anion Gap 17 mmol/L (5-15) H Blood Urea Nitrogen 61 mg/dL (7-18) H Creatinine 11.6 MG/DL (0.55-1.30) H Estimat Glomerular Filtration Rate 5.7 mL/min (>60) Glucose Level 135 MG/DL (74-106) H Calcium Level 8.8 MG/DL (8.5-10.1) Current Medications Medications (Trade) Dose Ordered Sig/Felix Route PRN Reason Start Time Stop Time Status Last Admin Dose Admin Acetaminophen (Tylenol) 650 mg Q4H PRN ORAL Mild Pain (Pain Scale 1-3) 12/05/17 19:15 01/03/18 15:14 Acetaminophen (Tylenol) 650 mg Q4H PRN ORAL fever (temp>100.5F) 12/05/17 19:15 01/03/18 15:14 Aspirin (ASA) 81 mg DAILY ORAL 12/06/17 09:00 01/04/18 08:59 12/09/17 08:46 Atorvastatin Calcium (Lipitor) 10 mg BEDTIME ORAL 12/05/17 21:00 01/03/18 20:59 12/09/17 21:00 Cefazolin Sodium 50 ml @ 100 mls/hr QTUE-SUN@1800 IVPB 12/11/17 18:00 12/18/17 17:59 Cefazolin Sodium 3 gm/Dextrose 110 ml @ 220 mls/hr QWEEK IVPB 12/08/17 18:00 12/15/17 17:59 12/08/17 18:49 Cinacalcet (Sensipar) 30 mg DAILY ORAL 12/06/17 09:00 01/04/18 08:59 12/09/17 08:46 Clonazepam (KlonoPIN) 1 mg BEDTIME ORAL 12/08/17 21:00 12/15/17 20:59 12/09/17 21:00 Dextrose (Dextrose 50%) 25 ml Q1H PRN IV Hypoglycemia 12/05/17 18:15 01/03/18 15:14 Dextrose (Dextrose 50%) 50 ml Q1H PRN IV Hypoglycemia 12/05/17 18:15 01/03/18 15:14 Docusate Sodium (Colace) 100 mg EVERY 12 HOURS ORAL 12/05/17 21:00 01/03/18 20:59 12/08/17 20:40 Ertapenem 0.5 gm/ Sodium Chloride 55 ml @ 110 mls/hr [id number]@2000 IVPB 12/08/17 20:00 12/13/17 19:59 12/08/17 20:15 Escitalopram Oxalate (Lexapro) 10 mg DAILY ORAL 12/06/17 09:00 01/04/18 08:59 12/09/17 08:46 Heparin Sodium (Porcine) (Heparin 5000 units/ml) 5,000 units EVERY 8 HOURS SUBQ 12/05/17 22:00 01/03/18 21:59 12/09/17 14:23 Insulin Aspart (NovoLOG) BEFORE MEALS AND HS SUBQ 12/05/17 21:00 01/03/18 17:59 12/09/17 21:04 Insulin Detemir (Levemir) 10 units BEDTIME SUBQ 12/05/17 21:00 01/03/18 20:59 12/09/17 21:05 Nitroglycerin (Ntg) 0.4 mg Q5M PRN SL Prn Chest Pain 12/05/17 17:45 01/03/18 15:14 Ondansetron HCl (Zofran) 4 mg Q6H PRN IVP Nausea & Vomiting 12/05/17 18:00 01/03/18 17:59 12/05/17 21:19 Polyethylene Glycol (Miralax) 17 gm DAILYPRN PRN ORAL Constipation 12/05/17 18:00 01/04/18 17:59 Cira Ceja M.D. Dec 09, 2017 21:51
--- NOTE | 2017-12-09 23:00 | Consultation ---
DATE OF CONSULTATION: 12/09/2017 VASCULAR SURGERY CONSULTATION CONSULTING PHYSICIAN: Petr Alexis M.D. REFERRING PHYSICIAN: 1. Sanjay Lane D.P.M. 2. Shahram Duong M.D. REASON FOR CONSULTATION: Right foot wound, osteomyelitis, and PAD. HISTORY OF PRESENT COMPLAINT: This is a 52-year-old male, who suffers from end-stage renal failure, on hemodialysis through a right upper arm AV shunt. The patient has history of hypertension, diabetes, had a previous right foot transmetatarsal amputation, and lower extremity revascularization by other physician. The patient presented with nonhealing right foot wound and osteomyelitis. Vascular Surgery is consulted for further evaluation. PAST MEDICAL HISTORY: As above. History of calcific PAD; hypertension; end-stage renal failure, on hemodialysis through a right upper arm AV shunt; anemia; diabetes mellitus; and daily smoker of marijuana. MEDICATIONS: See attached MAR. ALLERGIES: No known drug allergies. SOCIAL HISTORY: Denies any history of cigarette smoking, but smokes pot and marijuana every day. Denies any history of alcohol or other drugs. FAMILY HISTORY: Unremarkable. REVIEW OF SYSTEMS: CARDIOVASCULAR: No history of chest pain or palpitations. PULMONARY: No cough or hemoptysis. GASTROINTESTINAL: No history of abdominal pain, constipation, or diarrhea. GENITOURINARY: No dysuria, frequency, or urgency. NEUROLOGICAL: No history of strokes or seizures. PHYSICAL EXAMINATION: VITAL SIGNS: The patient is afebrile at 97.7 degrees, heart rate is 86, blood pressure is 114/76, respirations 18, and saturating 99%. NECK: He has palpable radial pulses. No evidence of carotid bruits. He has a good pulsatile right arm AV shunt thrill. He has a left arm scar. LUNGS: Clear to auscultation. HEART: Regular rate and rhythm. ABDOMEN: Soft and nontender. EXTREMITIES: He has palpable femoral pulses. Absent popliteal and pedal pulses bilaterally. Feet are warm. He has a right transmetatarsal amputation stump, which is clear, dry, and intact. There is a lateral right transmetatarsal wound, which appears to probe into the bone. LABORATORY DATA: Revealed a WBC of 5.4, hemoglobin 14.9, and platelet count is 229,000. BUN is 61 and creatinine is 11.6. IMPRESSION: 1. Right transmetatarsal amputation wound with underlying osteomyelitis. 2. Calcific multilevel arterial occlusive disease with prior history of revascularization by other physician. 3. History of diabetes mellitus, hypertension, and end-stage renal failure, on hemodialysis through a right arm AV graft. 4. Daily smoker of marijuana. PLAN AND RECOMMENDATIONS: 1. Continue with antiplatelet and statin therapy. DVT and decubitus precautions. 2. Right foot wound care per podiatry service. 3. Lower extremity duplex imaging were reviewed. The patient will require selective right leg angiography to assess for further revascularization prior to any invasive podiatry intervention. 4. Smoking abstinence strongly discussed with the patient. Discussed with patient at length Petr Alexis M.D. DR: MARIO JOB#: [id number] CC: Shahram Duong M.D.; Fax#: [phone] D.P.M. ; FAX#: [phone] JOHNATHAN ESTRADA M.D.; FAX#: [phone] REBECCA
[2017-12-10] VITALS (7 sets, daily range): BP systolic 102–153; BP diastolic 56–94
[2017-12-10] MEDS: Heparin 5000 units/ml inj SUBQ SCH ×3 (06:08→21:42)
[2017-12-10] MEDS: NovoLOG Insulin Flexpen SUBQ SCH ×4 (06:41→21:41)
--- NOTE | 2017-12-10 08:32 | Pulmonology Progress Note ---
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 hypotension with hx of hypertension anemia of chronic kidney disease nicotine dependency with withdrawal renal osteodystrophy QT prolongation ( likely due to e/lyte abnormalities 2 to ESRD ) daily marijuana use major depressive disorder altered mental status PLAN OF CARE MS floor MRI L foot + acute OM L foot metatarsal continue a/PLT and statin carotid essentially negative abx as per ID recs, blood cx negative, wound cx + Proteus, Providencia, Staph aureus will need total 6 wks of abx wound care as per podiatry recs BP stable, off any anti HTN meds cardio follows ECHO with pEF and evidence of echogenic material, possible calcification, further management as per cardio recommendations prolonged QT interval was likely due to e/lyte abnormalities - as per cardio 2 to ESRD, vasc surgery follows per surgery -patient will require selective right leg angiography to assess for further revascularization prior to any invasive podiatry intervention. counseled on smoking cessation, start Nicotine patch O2 HHN prn CXR no acute findings DVT prophylaxis venous Duplex BLE BS management with Levemir and SSI, increase Levemir dose pain management prn nephro follows HD as per nephro monitor volumes, renal parameters, lytes, correct as needed continue Sensipar psych follows, on Lexapro PT/OT bowel regimen case discussed and evaluated by supervising physician Subjective Allergies: Coded Allergies: NO KNOWN ALLERGIES (Verified Allergy, Unknown, 12/04/17) Subjective no fever no leukocytosis pulse ox stable on RA Objective Last 24 Hour Vital Signs Date Time Temp Pulse Resp B/P (MAP) Pulse Ox O2 Delivery O2 Flow Rate FiO2 12/10/17 04:00 97.6 92 18 133/70 (91) 100 97.6 12/10/17 00:00 97.9 88 18 110/56 (74) 100 97.9 12/09/17 21:00 Room Air 12/09/17 20:00 98.0 99 18 119/80 (93) 99 98.0 12/09/17 16:10 97.9 97 20 127/80 (96) 100 97.9 12/09/17 11:46 97.0 93 20 124/79 (94) 100 97.0 12/09/17 09:00 Room Air Intake and Output 12/09/17 12/10/17 19:00 07:00 Intake Total 1000 ml 360 ml Balance 1000 ml 360 ml Intake Oral 1000 ml 360 ml # Voids 5 2 # Bowel Movements 3 1 General Appearance: no acute distress HEENT: normocephalic, atraumatic Respiratory/Chest: lungs clear - with moderate air exchange Cardiovascular: normal rate, other - RUE AV shunt + bruit/thrill Abdomen: soft, non tender Extremities: no edema Skin: other - L foot with dressing Neurologic/Psychiatric: abnormal gait, alert, responsive Current Medications Medications (Trade) Dose Ordered Sig/Felix Route PRN Reason Start Time Stop Time Status Last Admin Dose Admin Acetaminophen (Tylenol) 650 mg Q4H PRN ORAL Mild Pain (Pain Scale 1-3) 12/05/17 19:15 01/03/18 15:14 Acetaminophen (Tylenol) 650 mg Q4H PRN ORAL fever (temp>100.5F) 12/05/17 19:15 01/03/18 15:14 Aspirin (ASA) 81 mg DAILY ORAL 12/06/17 09:00 01/04/18 08:59 12/09/17 08:46 Atorvastatin Calcium (Lipitor) 10 mg BEDTIME ORAL 12/05/17 21:00 01/03/18 20:59 12/09/17 21:00 Cefazolin Sodium 50 ml @ 100 mls/hr QTUE-SUN@1800 IVPB 12/11/17 18:00 12/18/17 17:59 Cefazolin Sodium 3 gm/Dextrose 110 ml @ 220 mls/hr QWEEK IVPB 12/08/17 18:00 12/15/17 17:59 12/08/17 18:49 Cinacalcet (Sensipar) 30 mg DAILY ORAL 12/06/17 09:00 01/04/18 08:59 12/09/17 08:46 Clonazepam (KlonoPIN) 1 mg BEDTIME ORAL 12/08/17 21:00 12/15/17 20:59 12/09/17 21:00 Dextrose (Dextrose 50%) 25 ml Q1H PRN IV Hypoglycemia 12/05/17 18:15 01/03/18 15:14 Dextrose (Dextrose 50%) 50 ml Q1H PRN IV Hypoglycemia 12/05/17 18:15 01/03/18 15:14 Docusate Sodium (Colace) 100 mg EVERY 12 HOURS ORAL 12/05/17 21:00 01/03/18 20:59 12/08/17 20:40 Ertapenem 0.5 gm/ Sodium Chloride 55 ml @ 110 mls/hr [id number]@1999 IVPB 12/08/17 20:00 12/13/17 19:59 12/08/17 20:15 Escitalopram Oxalate (Lexapro) 10 mg DAILY ORAL 12/06/17 09:00 01/04/18 08:59 12/09/17 08:46 Heparin Sodium (Porcine) (Heparin 5000 units/ml) 5,000 units EVERY 8 HOURS SUBQ 12/05/17 22:00 01/03/18 21:59 12/10/17 06:08 Insulin Aspart (NovoLOG) BEFORE MEALS AND HS SUBQ 12/05/17 21:00 01/03/18 17:59 12/10/17 06:41 Insulin Detemir (Levemir) 10 units BEDTIME SUBQ 12/05/17 21:00 01/03/18 20:59 12/09/17 21:05 Nitroglycerin (Ntg) 0.4 mg Q5M PRN SL Prn Chest Pain 12/05/17 17:45 01/03/18 15:14 Ondansetron HCl (Zofran) 4 mg Q6H PRN IVP Nausea & Vomiting 12/05/17 18:00 01/03/18 17:59 12/05/17 21:19 Polyethylene Glycol (Miralax) 17 gm DAILYPRN PRN ORAL Constipation 12/05/17 18:00 01/04/18 17:59 Yamilka Broussard [employer]UG ABUSE COUNSELOR Dec 10, 2017 08:32
[2017-12-10] MEDS: Sensipar 30mg Tab ORAL SCH (08:55)
[2017-12-10] MEDS: Docusate 100mg cap ORAL SCH ×2 (08:55→21:00)
[2017-12-10] MEDS: Aspirin Baby 81mg ORAL SCH (08:55)
[2017-12-10 09:11] LABS: BASOPHILS % (AUTO) 1.2 % (0.0-2.0); HEMATOCRIT 43.3 % (42.0-52.0); HEMOGLOBIN 13.6 G/DL (14.2-18.0); LYMPHOCYTES % (AUTO) 22.1 % (20.0-45.0); MEAN CORPUSCULAR VOLUME 99 FL (80-99); NEUTROPHILS % (AUTO) 63.6 % (45.0-75.0); PLATELET COUNT 239 K/UL (150-450); RED BLOOD COUNT 4.36 M/UL (4.70-6.10); RED CELL DISTRIBUTION WIDTH 16.6 % (11.6-14.8); WHITE BLOOD COUNT 7.1 K/UL (4.8-10.8)
[2017-12-10 09:39] LABS: ANION GAP 16 mmol/L (5-15); BLOOD UREA NITROGEN 95 mg/dL (7-18); CALCIUM 8.1 MG/DL (8.5-10.1); CARBON DIOXIDE 22 MMOL/L (21-32); CHLORIDE 91 MMOL/L (98-107); SODIUM 129 MMOL/L (136-145)
[2017-12-10 09:43] LABS: POTASSIUM 6.7 MMOL/L (3.5-5.1)
[2017-12-10] MEDS ORDERED: Sodium Polystyrene Sulfonate 15gm Powder ORAL SCH (11:30)
--- NOTE | 2017-12-10 13:24 | Infectious Diseases Prog Note ---
Assessment/Plan Problems: (1) Acute osteomyelitis of metatarsal bone of right foot Assessment & Plan: with methicillin sensitive staph aureus, Providencia rettgeri, and proteus mirabilis , will need surgical revision of his right stump , after vascular evaluation is done as per equipment tester , continue cefazolin and ertapenem for left foot osteomyelitis for 6 weeks pending angioplasty and stump revision of the right foot (2) Ulcer of amputation stump of foot Assessment & Plan: with pus draining and underlying osteomyelitis of the metatarsal bones as per MRI of the right foot . 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 Assessment & Plan: with open wound draining purulent materials , due to ataph aureus and gram negative rods and underlying osteomyelitis , await wound culture and sensitivity , continue vancomycin and zosyn empiric coverage pending cultures , equipment tester eval is in progress (4) Sepsis Assessment & Plan: due to the above , continue cefazolin and ertapenem for 6 weeks to treat for osteomyelitis of the left foot stump (5) ESRD (end stage renal disease) Assessment & Plan: continue HD as per renal Subjective Constitutional: Reports: no symptoms HEENT: Reports: no symptoms Respiratory: Reports: no symptoms Breasts: Reports: no symptoms Cardiovascular: Reports: no symptoms Gastrointestinal/Abdominal: Reports: no symptoms Genitourinary: Reports: no symptoms Neurologic: Reports: no symptoms Psychiatric: Reports: no symptoms Skin: Reports: no symptoms Endocrine: Reports: no symptoms Hematologic: Reports: no symptoms Musculoskeletal: Reports: no symptoms Allergies: Coded Allergies: NO KNOWN ALLERGIES (Verified Allergy, Unknown, 12/04/17) Objective Vital Signs Last 24 Hour Vital Signs Date Time Temp Pulse Resp B/P (MAP) Pulse Ox O2 Delivery O2 Flow Rate FiO2 12/10/17 12:00 97.7 85 18 153/94 (113) 99 97.7 12/10/17 08:30 Room Air 12/10/17 08:00 97.4 82 18 133/85 (101) 100 97.4 12/10/17 04:00 97.6 92 18 133/70 (91) 100 97.6 12/10/17 00:00 97.9 88 18 110/56 (74) 100 97.9 12/09/17 21:00 Room Air 12/09/17 20:00 98.0 99 18 119/80 (93) 99 98.0 12/09/17 16:10 97.9 97 20 127/80 (96) 100 97.9 Height (Feet): 5 Height (Inches): 11.00 Weight (Pounds): 186 General Appearance: WD/WN, no acute distress HEENT: normocephalic, atraumatic, anicteric, mucous membranes moist Respiratory/Chest: chest wall non-tender, lungs clear, normal breath sounds, no respiratory distress, no accessory muscle use Cardiovascular: normal peripheral pulses, normal rate, regular rhythm, no gallop/murmur, no JVD Abdomen: normal bowel sounds, soft, non tender, no organomegaly, non distended , no mass, no scars Extremities: no cyanosis, no clubbing Skin: no rash, no lesions, ulcers - RIGHT FOOT STUMP Neurologic/Psychiatric: alert, oriented x 3, responsive Lymphatic: no neck adenopathy, no groin adenopathy Musculoskeletal: normal muscle bulk, no effusion Laboratory Tests Test 12/10/17 08:10 White Blood Count 7.1 K/UL (4.8-10.8) Red Blood Count 4.36 M/UL (4.70-6.10) L Hemoglobin 13.6 G/DL (14.2-18.0) L Hematocrit 43.3 % (42.0-52.0) Mean Corpuscular Volume 99 FL (80-99) Mean Corpuscular Hemoglobin 31.2 PG (27.0-31.0) H Mean Corpuscular Hemoglobin Concent 31.4 G/DL (32.0-36.0) L Red Cell Distribution Width 16.6 % (11.6-14.8) H Platelet Count 239 K/UL (150-450) Mean Platelet Volume 7.2 FL (6.5-10.1) Neutrophils (%) (Auto) 63.6 % (45.0-75.0) Lymphocytes (%) (Auto) 22.1 % (20.0-45.0) Monocytes (%) (Auto) 10.0 % (1.0-10.0) Eosinophils (%) (Auto) 3.0 % (0.0-3.0) Basophils (%) (Auto) 1.2 % (0.0-2.0) Sodium Level 129 MMOL/L (136-145) L Potassium Level 6.7 MMOL/L (3.5-5.1) *H Chloride Level 91 MMOL/L (98-107) L Carbon Dioxide Level 22 MMOL/L (21-32) Anion Gap 16 mmol/L (5-15) H Blood Urea Nitrogen 95 mg/dL (7-18) H Creatinine 15.0 MG/DL (0.55-1.30) H Estimat Glomerular Filtration Rate 4.2 mL/min (>60) Glucose Level 269 MG/DL (74-106) #H Calcium Level 8.1 MG/DL (8.5-10.1) L Current Medications Medications (Trade) Dose Ordered Sig/Felix Route PRN Reason Start Time Stop Time Status Last Admin Dose Admin Acetaminophen (Tylenol) 650 mg Q4H PRN ORAL Mild Pain (Pain Scale 1-3) 12/05/17 19:15 01/03/18 15:14 Acetaminophen (Tylenol) 650 mg Q4H PRN ORAL fever (temp>100.5F) 12/05/17 19:15 01/03/18 15:14 Aspirin (ASA) 81 mg DAILY ORAL 12/06/17 09:00 01/04/18 08:59 12/10/17 08:55 Atorvastatin Calcium (Lipitor) 10 mg BEDTIME ORAL 12/05/17 21:00 01/03/18 20:59 12/09/17 21:00 Cefazolin Sodium 50 ml @ 100 mls/hr QTUE-SUN@1800 IVPB 12/11/17 18:00 12/18/17 17:59 Cefazolin Sodium 3 gm/Dextrose 110 ml @ 220 mls/hr QWEEK IVPB 12/08/17 18:00 12/15/17 17:59 12/08/17 18:49 Cinacalcet (Sensipar) 30 mg DAILY ORAL 12/06/17 09:00 01/04/18 08:59 12/10/17 08:55 Clonazepam (KlonoPIN) 1 mg BEDTIME ORAL 12/08/17 21:00 12/15/17 20:59 12/09/17 21:00 Dextrose (Dextrose 50%) 25 ml Q1H PRN IV Hypoglycemia 12/05/17 18:15 01/03/18 15:14 Dextrose (Dextrose 50%) 50 ml Q1H PRN IV Hypoglycemia 12/05/17 18:15 01/03/18 15:14 Docusate Sodium (Colace) 100 mg EVERY 12 HOURS ORAL 12/05/17 21:00 01/03/18 20:59 12/08/17 20:40 Ertapenem 0.5 gm/ Sodium Chloride 55 ml @ 110 mls/hr [id number]@1999 IVPB 12/08/17 20:00 12/13/17 19:59 12/08/17 20:15 Escitalopram Oxalate (Lexapro) 10 mg DAILY ORAL 12/06/17 09:00 01/04/18 08:59 12/10/17 08:55 Heparin Sodium (Porcine) (Heparin 5000 units/ml) 5,000 units EVERY 8 HOURS SUBQ 12/05/17 22:00 01/03/18 21:59 12/10/17 06:08 Insulin Aspart (NovoLOG) BEFORE MEALS AND HS SUBQ 12/05/17 21:00 01/03/18 17:59 12/10/17 11:53 Insulin Detemir (Levemir) 14 units BEDTIME SUBQ 12/10/17 21:00 01/03/18 20:59 Nicotine (Nicoderm) 1 patch Q24H TDERMAL 12/10/17 12:00 01/09/18 11:59 12/10/17 11:52 Nitroglycerin (Ntg) 0.4 mg Q5M PRN SL Prn Chest Pain 12/05/17 17:45 01/03/18 15:14 Ondansetron HCl (Zofran) 4 mg Q6H PRN IVP Nausea & Vomiting 12/05/17 18:00 01/03/18 17:59 12/05/17 21:19 Polyethylene Glycol (Miralax) 17 gm DAILYPRN PRN ORAL Constipation 12/05/17 18:00 01/04/18 17:59 Cira Ceja M.D. Dec 10, 2017 13:24
--- NOTE | 2017-12-10 17:02 | Internal Med Progress Note ---
Subjective Date of Service: Dec 10, 2017 Physician Name Miles Lobo Attending Physician Shahram Duong MD Current Medications Medications (Trade) Dose Ordered Sig/Felix Route PRN Reason Start Time Stop Time Status Last Admin Dose Admin Acetaminophen (Tylenol) 650 mg Q4H PRN ORAL Mild Pain (Pain Scale 1-3) 12/05/17 19:15 01/03/18 15:14 Acetaminophen (Tylenol) 650 mg Q4H PRN ORAL fever (temp>100.5F) 12/05/17 19:15 01/03/18 15:14 Aspirin (ASA) 81 mg DAILY ORAL 12/06/17 09:00 01/04/18 08:59 12/10/17 08:55 Atorvastatin Calcium (Lipitor) 10 mg BEDTIME ORAL 12/05/17 21:00 01/03/18 20:59 12/09/17 21:00 Cefazolin Sodium 50 ml @ 100 mls/hr QTUE-SUN@1800 IVPB 12/11/17 18:00 12/18/17 17:59 Cefazolin Sodium 3 gm/Dextrose 110 ml @ 220 mls/hr QWEEK IVPB 12/08/17 18:00 12/15/17 17:59 12/08/17 18:49 Cinacalcet (Sensipar) 30 mg DAILY ORAL 12/06/17 09:00 01/04/18 08:59 12/10/17 08:55 Clonazepam (KlonoPIN) 1 mg BEDTIME ORAL 12/08/17 21:00 12/15/17 20:59 12/09/17 21:00 Dextrose (Dextrose 50%) 25 ml Q1H PRN IV Hypoglycemia 12/05/17 18:15 01/03/18 15:14 Dextrose (Dextrose 50%) 50 ml Q1H PRN IV Hypoglycemia 12/05/17 18:15 01/03/18 15:14 Docusate Sodium (Colace) 100 mg EVERY 12 HOURS ORAL 12/05/17 21:00 01/03/18 20:59 12/08/17 20:40 Ertapenem 0.5 gm/ Sodium Chloride 55 ml @ 110 mls/hr [id number]@2000 IVPB 12/08/17 20:00 12/13/17 19:59 12/08/17 20:15 Escitalopram Oxalate (Lexapro) 10 mg DAILY ORAL 12/06/17 09:00 01/04/18 08:59 12/10/17 08:55 Heparin Sodium (Porcine) (Heparin 5000 units/ml) 5,000 units EVERY 8 HOURS SUBQ 12/05/17 22:00 01/03/18 21:59 12/10/17 06:08 Insulin Aspart (NovoLOG) BEFORE MEALS AND HS SUBQ 12/05/17 21:00 01/03/18 17:59 12/10/17 11:53 Insulin Detemir (Levemir) 14 units BEDTIME SUBQ 12/10/17 21:00 01/03/18 20:59 Nicotine (Nicoderm) 1 patch Q24H TDERMAL 12/10/17 12:00 01/09/18 11:59 12/10/17 11:52 Nitroglycerin (Ntg) 0.4 mg Q5M PRN SL Prn Chest Pain 12/05/17 17:45 01/03/18 15:14 Ondansetron HCl (Zofran) 4 mg Q6H PRN IVP Nausea & Vomiting 12/05/17 18:00 01/03/18 17:59 12/05/17 21:19 Polyethylene Glycol (Miralax) 17 gm DAILYPRN PRN ORAL Constipation 12/05/17 18:00 01/04/18 17:59 Allergies: Coded Allergies: NO KNOWN ALLERGIES (Verified Allergy, Unknown, 12/04/17) ROS Limited/Unobtainable: No Constitutional: Reports: no symptoms HEENT: Reports: no symptoms Cardiovascular: Reports: no symptoms Respiratory: Reports: no symptoms Gastrointestinal/Abdominal: Reports: no symptoms Genitourinary: Reports: no symptoms Neurologic/Psychiatric: Reports: no symptoms Subjective 52 YO M admitted with altered mental status. Now osteomyelitis right foot. Cover for Int Med-Dr Duong. Await transfer to . [facility] [place] Objective Last Vital Signs Date Time Temp Pulse Resp B/P (MAP) Pulse Ox O2 Delivery O2 Flow Rate FiO2 12/10/17 12:00 97.7 85 18 153/94 (113) 99 97.7 12/10/17 08:30 Room Air Laboratory Tests Test 12/10/17 08:10 White Blood Count 7.1 K/UL (4.8-10.8) Red Blood Count 4.36 M/UL (4.70-6.10) L Hemoglobin 13.6 G/DL (14.2-18.0) L Hematocrit 43.3 % (42.0-52.0) Mean Corpuscular Volume 99 FL (80-99) Mean Corpuscular Hemoglobin 31.2 PG (27.0-31.0) H Mean Corpuscular Hemoglobin Concent 31.4 G/DL (32.0-36.0) L Red Cell Distribution Width 16.6 % (11.6-14.8) H Platelet Count 239 K/UL (150-450) Mean Platelet Volume 7.2 FL (6.5-10.1) Neutrophils (%) (Auto) 63.6 % (45.0-75.0) Lymphocytes (%) (Auto) 22.1 % (20.0-45.0) Monocytes (%) (Auto) 10.0 % (1.0-10.0) Eosinophils (%) (Auto) 3.0 % (0.0-3.0) Basophils (%) (Auto) 1.2 % (0.0-2.0) Sodium Level 129 MMOL/L (136-145) L Potassium Level 6.7 MMOL/L (3.5-5.1) *H Chloride Level 91 MMOL/L (98-107) L Carbon Dioxide Level 22 MMOL/L (21-32) Anion Gap 16 mmol/L (5-15) H Blood Urea Nitrogen 95 mg/dL (7-18) H Creatinine 15.0 MG/DL (0.55-1.30) H Estimat Glomerular Filtration Rate 4.2 mL/min (>60) Glucose Level 269 MG/DL (74-106) #H Calcium Level 8.1 MG/DL (8.5-10.1) L Intake and Output 12/09/17 12/10/17 19:00 07:00 Intake Total 1000 ml 360 ml Balance 1000 ml 360 ml Intake Oral 1000 ml 360 ml # Voids 5 2 # Bowel Movements 3 1 Objective General Appearance: WD/WN, no apparent distress, alert EENT: PERRL/EOMI, normal ENT inspection Neck: non-tender, normal alignment, supple, normal inspection Cardiovascular: normal peripheral pulses, normal rate, regular rhythm, no gallop/murmur, no JVD Respiratory/Chest: chest wall non-tender, lungs clear, normal breath sounds, no respiratory distress, no accessory muscle use Abdomen: normal bowel sounds, non tender, soft, no organomegaly, no mass Extremities: normal range of motion, other Edema: trace edema Neurologic: jack frame tender II-XII grossly normal, no motor/sensory deficits Skin: normal pigmentation, warm/dry Assessment/Plan Problem List: (1) Altered mental status (2) Encephalopathy (3) HTN (hypertension) (4) Diabetic nephropathy (5) Diabetic neuropathy (6) Acute osteomyelitis of metatarsal bone of right foot Assessment & Plan: Staph aureus and providencia. See ID and podiatry note. Continue ciprofloxacin and zosyn. Needs revision of stump. Needs angiogram of right lower extremity prior to surgery-see podiatry note. (7) Diabetes mellitus Assessment & Plan: Continue novolog and levemir (8) ESRD (end stage renal disease) Assessment & Plan: See nephology note. Next hemodialysis 12/08/17 Status: progressing Assessment/Plan Transfer to [facility] for angiogram and stump revision-see podiatry note. Miles Loob MD Dec 10, 2017 17:02
--- NOTE | 2017-12-10 18:09 | Nephrology Progress Note ---
Assessment/Plan Assessment 1. Altered mental status. 2. End-stage renal disease. 3. Anemia of chronic kidney disease. 4. Renal osteodystrophy. 5. Hypertension, well controlled. 6. Diabetes. Plan dialysis as schedule check phos and PTH continue epoen continue antibiotic Subjective Subjective alert and awake no complaints Objective Objective Last 24 Hour Vital Signs Date Time Temp Pulse Resp B/P (MAP) Pulse Ox O2 Delivery O2 Flow Rate FiO2 12/10/17 12:00 97.7 85 18 153/94 (113) 99 97.7 12/10/17 08:30 Room Air 12/10/17 08:00 97.4 82 18 133/85 (101) 100 97.4 12/10/17 04:00 97.6 92 18 133/70 (91) 100 97.6 12/10/17 00:00 97.9 88 18 110/56 (74) 100 97.9 12/09/17 21:00 Room Air 12/09/17 20:00 98.0 99 18 119/80 (93) 99 98.0 Intake and Output 12/09/17 12/10/17 19:00 07:00 Intake Total 1000 ml 360 ml Balance 1000 ml 360 ml Intake Oral 1000 ml 360 ml # Voids 5 2 # Bowel Movements 3 1 Laboratory Tests 12/10/17 08:10: White Blood Count 7.1, Red Blood Count 4.36L, Hemoglobin 13.6L, Hematocrit 43.3 , Mean Corpuscular Volume 99, Mean Corpuscular Hemoglobin 31.2H, Mean Corpuscular Hemoglobin Concent 31.4L, Red Cell Distribution Width 16.6H, Platelet Count 239, Mean Platelet Volume 7.2, Neutrophils (%) (Auto) 63.6, Lymphocytes (%) (Auto) 22.1, Monocytes (%) (Auto) 10.0, Eosinophils (%) (Auto) 3.0, Basophils (%) (Auto) 1.2, Sodium Level 129L, Potassium Level 6.7*H, Chloride Level 91L, Carbon Dioxide Level 22, Anion Gap 16H, Blood Urea Nitrogen 95H, Creatinine 15.0H, Estimat Glomerular Filtration Rate 4.2, Glucose Level 269 #H, Calcium Level 8.1L Height (Feet): 5 Height (Inches): 11.00 Weight (Pounds): 186 Objective HEAD AND NECK: No JVP. No LAD. No thyromegaly. Extraocular movement intact. Pupils are reactive to light and accommodation. LUNGS: Clear to auscultation. CARDIAC: Regular rate and rhythm. S1 and S2. No murmur. No rub. ABDOMEN: Soft, nontender, and nondistended. EXTREMITIES: The patient on the right has transmetatarsal amputation. Tessa Schwartz MD Dec 10, 2017 18:09
[2017-12-10] MEDS: Levemir Flexpen SUBQ SCH (21:40)
[2017-12-10] MEDS ORDERED: ceFAZolin 2gm/D5W 50ml Premix IV SCH (23:15)
[2017-12-10] MEDS ORDERED: ERTAPENEM IVPB SCH (23:15)
[2017-12-10] MEDS ORDERED: NS IVPB SCH (23:15)
[2017-12-10] MEDS ORDERED: Ertapenem (INVanz) 1gm Inj ONE (23:52)
[2017-12-11] VITALS: BP 100/63
[2017-12-11 04:00] VITALS: BP 96/56
[2017-12-11] MEDS: NovoLOG Insulin Flexpen SUBQ SCH ×4 (06:30→20:50)
[2017-12-11] MEDS: Heparin 5000 units/ml inj SUBQ SCH ×3 (06:31→21:34)
--- NOTE | 2017-12-11 07:52 | Pulmonology Progress Note ---
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 nicotine dependency with withdrawal hypotension with hx of hypertension anemia of chronic kidney disease renal osteodystrophy QT prolongation ( likely due to e/lyte abnormalities 2 to ESRD ) daily marijuana use major depressive disorder PLAN OF CARE MS floor MRI L foot + acute OM L foot metatarsal continue a/PLT and statin carotid essentially negative abx as per ID recs, blood cx negative, wound cx + Proteus, Providencia, Staph aureus will need total 6 wks of abx wound care as per podiatry recs BP stable, off any anti HTN meds cardio follows ECHO with pEF and evidence of echogenic material, possible calcification, further management as per cardio recommendations prolonged QT interval was likely due to e/lyte abnormalities - as per cardio 2 to ESRD, vasc surgery follows per surgery -patient will require selective right leg angiography to assess for further revascularization prior to any invasive podiatry intervention. counseled on smoking cessation, start Nicotine patch O2 HHN prn CXR no acute findings DVT prophylaxis venous Duplex BLE BS management with Levemir and SSI, increase Levemir dose 12/10, BS 149 this am pain management prn nephro follows HD as per nephro monitor volumes, renal parameters, lytes, correct as needed continue Sensipar psych follows, on Lexapro PT/OT bowel regimen case discussed and evaluated by supervising physician Subjective Allergies: Coded Allergies: NO KNOWN ALLERGIES (Verified Allergy, Unknown, 12/04/17) Subjective no fever no leukocytosis pulse ox stable on RA BS 149 this am Objective Last 24 Hour Vital Signs Date Time Temp Pulse Resp B/P (MAP) Pulse Ox O2 Delivery O2 Flow Rate FiO2 12/11/17 07:47 Room Air 12/11/17 04:00 97.5 87 18 96/56 (69) 100 97.5 12/11/17 00:00 97.8 95 18 100/63 (75) 100 97.8 12/10/17 22:01 Room Air 12/10/17 20:23 97.4 87 18 106/75 (85) 96 97.4 12/10/17 18:26 98.1 106 18 102/67 (79) 96 98.1 12/10/17 16:00 98.1 106 18 102/67 (79) 96 98.1 12/10/17 12:00 97.7 85 18 153/94 (113) 99 97.7 12/10/17 08:30 Room Air 12/10/17 08:00 97.4 82 18 133/85 (101) 100 97.4 Intake and Output 12/10/17 12/11/17 19:00 07:00 Intake Total 430 ml 225 ml Balance 430 ml 225 ml Intake Oral 430 ml 120 ml IV Total 105 ml # Voids 2 Objective General Appearance: no acute distress HEENT: normocephalic, atraumatic Respiratory/Chest: lungs clear - with moderate air exchange Cardiovascular: normal rate, other - RUE AV shunt + bruit/thrill Abdomen: soft, non tender Extremities: no edema Skin: other - L foot with dressing Neurologic/Psychiatric: abnormal gait, alert, responsive Laboratory Tests 12/10/17 08:10: White Blood Count 7.1, Red Blood Count 4.36L, Hemoglobin 13.6L, Hematocrit 43.3 , Mean Corpuscular Volume 99, Mean Corpuscular Hemoglobin 31.2H, Mean Corpuscular Hemoglobin Concent 31.4L, Red Cell Distribution Width 16.6H, Platelet Count 239, Mean Platelet Volume 7.2, Neutrophils (%) (Auto) 63.6, Lymphocytes (%) (Auto) 22.1, Monocytes (%) (Auto) 10.0, Eosinophils (%) (Auto) 3.0, Basophils (%) (Auto) 1.2, Sodium Level 129L, Potassium Level 6.7*H, Chloride Level 91L, Carbon Dioxide Level 22, Anion Gap 16H, Blood Urea Nitrogen 95H, Creatinine 15.0H, Estimat Glomerular Filtration Rate 4.2, Glucose Level 269 #H, Calcium Level 8.1L Current Medications Medications (Trade) Dose Ordered Sig/Felix Route PRN Reason Start Time Stop Time Status Last Admin Dose Admin Acetaminophen (Tylenol) 650 mg Q4H PRN ORAL Mild Pain (Pain Scale 1-3) 12/05/17 19:15 01/03/18 15:14 Acetaminophen (Tylenol) 650 mg Q4H PRN ORAL fever (temp>100.5F) 12/05/17 19:15 01/03/18 15:14 Aspirin (ASA) 81 mg DAILY ORAL 12/06/17 09:00 01/04/18 08:59 12/10/17 08:55 Atorvastatin Calcium (Lipitor) 10 mg BEDTIME ORAL 12/05/17 21:00 01/03/18 20:59 12/10/17 21:38 Cefazolin Sodium 50 ml @ 100 mls/hr SuTu@1800 IVPB 12/11/17 18:00 12/18/17 17:59 Cefazolin Sodium 3 gm/Dextrose 110 ml @ 220 mls/hr QWEEK IVPB 12/08/17 18:00 12/15/17 17:59 12/08/17 18:49 Cinacalcet (Sensipar) 30 mg DAILY ORAL 12/06/17 09:00 01/04/18 08:59 12/10/17 08:55 Clonazepam (KlonoPIN) 1 mg BEDTIME ORAL 12/08/17 21:00 12/15/17 20:59 12/10/17 21:38 Dextrose (Dextrose 50%) 25 ml Q1H PRN IV Hypoglycemia 12/05/17 18:15 01/03/18 15:14 Dextrose (Dextrose 50%) 50 ml Q1H PRN IV Hypoglycemia 12/05/17 18:15 01/03/18 15:14 Docusate Sodium (Colace) 100 mg EVERY 12 HOURS ORAL 12/05/17 21:00 01/03/18 20:59 12/08/17 20:40 Ertapenem 0.5 gm/ Sodium Chloride 55 ml @ 110 mls/hr SuTuTh@2000 IVPB 12/11/17 20:00 12/13/17 19:59 Escitalopram Oxalate (Lexapro) 10 mg DAILY ORAL 12/06/17 09:00 01/04/18 08:59 12/10/17 08:55 Heparin Sodium (Porcine) (Heparin 5000 units/ml) 5,000 units EVERY 8 HOURS SUBQ 12/05/17 22:00 01/03/18 21:59 12/11/17 06:31 Insulin Aspart (NovoLOG) BEFORE MEALS AND HS SUBQ 12/05/17 21:00 01/03/18 17:59 12/11/17 06:30 Insulin Detemir (Levemir) 14 units BEDTIME SUBQ 12/10/17 21:00 01/03/18 20:59 12/10/17 21:40 Nicotine (Nicoderm) 1 patch Q24H TDERMAL 12/10/17 12:00 01/09/18 11:59 12/10/17 11:52 Nitroglycerin (Ntg) 0.4 mg Q5M PRN SL Prn Chest Pain 12/05/17 17:45 01/03/18 15:14 Ondansetron HCl (Zofran) 4 mg Q6H PRN IVP Nausea & Vomiting 12/05/17 18:00 01/03/18 17:59 12/05/17 21:19 Polyethylene Glycol (Miralax) 17 gm DAILYPRN PRN ORAL Constipation 12/05/17 18:00 01/04/18 17:59 Yamilka Broussard [employer] HEL[employer] Dec 11, 2017 07:52
[2017-12-11 08:00] VITALS: BP 107/68
[2017-12-11] MEDS ORDERED: Albuterol/Ipratropium 3ml neb HHN PRN (08:00)
[2017-12-11 08:27] LABS: BASOPHILS % (AUTO) 1.4 % (0.0-2.0); EOSINOPHILS % (AUTO) 2.5 % (0.0-3.0); HEMATOCRIT 41.7 % (42.0-52.0); HEMOGLOBIN 13.5 G/DL (14.2-18.0); LYMPHOCYTES % (AUTO) 20.5 % (20.0-45.0); MEAN CORPUSCULAR VOLUME 99 FL (80-99); NEUTROPHILS % (AUTO) 64.7 % (45.0-75.0); PLATELET COUNT 237 K/UL (150-450); RED CELL DISTRIBUTION WIDTH 16.4 % (11.6-14.8); WHITE BLOOD COUNT 5.8 K/UL (4.8-10.8)
[2017-12-11] MEDS: Aspirin Baby 81mg ORAL SCH (08:38)
[2017-12-11] MEDS: Sensipar 30mg Tab ORAL SCH (08:38)
[2017-12-11] MEDS: Docusate 100mg cap ORAL SCH ×2 (08:38→20:51)
[2017-12-11 08:39] LABS: ANION GAP 17 mmol/L (5-15); BLOOD UREA NITROGEN 74 mg/dL (7-18); CALCIUM 8.4 MG/DL (8.5-10.1); CARBON DIOXIDE 22 MMOL/L (21-32); CHLORIDE 99 MMOL/L (98-107); CREATININE 12.4 MG/DL (0.55-1.30); POTASSIUM 4.5 MMOL/L (3.5-5.1); SODIUM 137 MMOL/L (136-145)
[2017-12-11 12:00] VITALS: BP 121/69
--- NOTE | 2017-12-11 15:56 | Internal Med Progress Note ---
Subjective Date of Service: Dec 11, 2017 Physician Name Miles Lobo Attending Physician Shahram Duong MD Current Medications Medications (Trade) Dose Ordered Sig/Felix Route PRN Reason Start Time Stop Time Status Last Admin Dose Admin Acetaminophen (Tylenol) 650 mg Q4H PRN ORAL Mild Pain (Pain Scale 1-3) 12/05/17 19:15 01/03/18 15:14 Acetaminophen (Tylenol) 650 mg Q4H PRN ORAL fever (temp>100.5F) 12/05/17 19:15 01/03/18 15:14 Albuterol/ Ipratropium (Albuterol/ Ipratropium) 3 ml Q4H PRN HHN Shortness of Breath 12/11/17 08:00 12/16/17 07:59 Aspirin (ASA) 81 mg DAILY ORAL 12/06/17 09:00 01/04/18 08:59 12/11/17 08:38 Atorvastatin Calcium (Lipitor) 10 mg BEDTIME ORAL 12/05/17 21:00 01/03/18 20:59 12/10/17 21:38 Cefazolin Sodium 50 ml @ 100 mls/hr TuTh@2000 IVPB 12/13/17 20:00 12/20/17 19:59 Cefazolin Sodium 3 gm/Dextrose 110 ml @ 220 mls/hr QWEEK IVPB 12/17/17 20:00 12/24/17 19:59 Cinacalcet (Sensipar) 30 mg DAILY ORAL 12/06/17 09:00 01/04/18 08:59 12/11/17 08:38 Clonazepam (KlonoPIN) 1 mg BEDTIME ORAL 12/08/17 21:00 12/15/17 20:59 12/10/17 21:38 Dextrose (Dextrose 50%) 25 ml Q1H PRN IV Hypoglycemia 12/05/17 18:15 01/03/18 15:14 Dextrose (Dextrose 50%) 50 ml Q1H PRN IV Hypoglycemia 12/05/17 18:15 01/03/18 15:14 Docusate Sodium (Colace) 100 mg EVERY 12 HOURS ORAL 12/05/17 21:00 01/03/18 20:59 12/11/17 08:38 Ertapenem 0.5 gm/ Sodium Chloride 55 ml @ 110 mls/hr TuThSa@2100 IVPB 12/13/17 21:00 12/18/17 20:59 Escitalopram Oxalate (Lexapro) 10 mg DAILY ORAL 12/06/17 09:00 01/04/18 08:59 12/11/17 08:38 Heparin Sodium (Porcine) (Heparin 5000 units/ml) 5,000 units EVERY 8 HOURS SUBQ 12/05/17 22:00 01/03/18 21:59 12/11/17 13:14 Insulin Aspart (NovoLOG) BEFORE MEALS AND HS SUBQ 12/05/17 21:00 01/03/18 17:59 12/11/17 11:51 Insulin Detemir (Levemir) 14 units BEDTIME SUBQ 12/10/17 21:00 01/03/18 20:59 12/10/17 21:40 Nicotine (Nicoderm) 1 patch Q24H TDERMAL 12/10/17 12:00 01/09/18 11:59 12/11/17 11:48 Nitroglycerin (Ntg) 0.4 mg Q5M PRN SL Prn Chest Pain 12/05/17 17:45 01/03/18 15:14 Ondansetron HCl (Zofran) 4 mg Q6H PRN IVP Nausea & Vomiting 12/05/17 18:00 01/03/18 17:59 12/05/17 21:19 Polyethylene Glycol (Miralax) 17 gm DAILYPRN PRN ORAL Constipation 12/05/17 18:00 01/04/18 17:59 Allergies: Coded Allergies: NO KNOWN ALLERGIES (Verified Allergy, Unknown, 12/04/17) ROS Limited/Unobtainable: No Constitutional: Reports: no symptoms HEENT: Reports: no symptoms Cardiovascular: Reports: no symptoms Respiratory: Reports: no symptoms Gastrointestinal/Abdominal: Reports: no symptoms Genitourinary: Reports: no symptoms Neurologic/Psychiatric: Reports: no symptoms Subjective 52 YO M admitted with altered mental status. Now osteomyelitis right foot. Cover for Int Chuck-Dr Duong. Await transfer to . [facility] Objective Last Vital Signs Date Time Temp Pulse Resp B/P (MAP) Pulse Ox O2 Delivery O2 Flow Rate FiO2 12/11/17 12:00 97.4 83 18 121/69 (86) 99 97.4 12/11/17 07:47 Room Air Laboratory Tests Test 12/11/17 07:20 White Blood Count 5.8 K/UL (4.8-10.8) Red Blood Count 4.20 M/UL (4.70-6.10) L Hemoglobin 13.5 G/DL (14.2-18.0) L Hematocrit 41.7 % (42.0-52.0) L Mean Corpuscular Volume 99 FL (80-99) Mean Corpuscular Hemoglobin 32.1 PG (27.0-31.0) H Mean Corpuscular Hemoglobin Concent 32.3 G/DL (32.0-36.0) Red Cell Distribution Width 16.4 % (11.6-14.8) H Platelet Count 237 K/UL (150-450) Mean Platelet Volume 7.1 FL (6.5-10.1) Neutrophils (%) (Auto) 64.7 % (45.0-75.0) Lymphocytes (%) (Auto) 20.5 % (20.0-45.0) Monocytes (%) (Auto) 11.0 % (1.0-10.0) H Eosinophils (%) (Auto) 2.5 % (0.0-3.0) Basophils (%) (Auto) 1.4 % (0.0-2.0) Sodium Level 137 MMOL/L (136-145) Potassium Level 4.5 MMOL/L (3.5-5.1) Chloride Level 99 MMOL/L (98-107) Carbon Dioxide Level 22 MMOL/L (21-32) Anion Gap 17 mmol/L (5-15) H Blood Urea Nitrogen 74 mg/dL (7-18) H Creatinine 12.4 MG/DL (0.55-1.30) H Estimat Glomerular Filtration Rate 5.2 mL/min (>60) Glucose Level 159 MG/DL (74-106) #H Calcium Level 8.4 MG/DL (8.5-10.1) L Intake and Output 12/10/17 12/11/17 19:00 07:00 Intake Total 430 ml 565 ml Balance 430 ml 565 ml Intake Oral 430 ml 460 ml IV Total 105 ml # Voids 6 Objective General Appearance: WD/WN, no apparent distress, alert EENT: PERRL/EOMI, normal ENT inspection Neck: non-tender, normal alignment, supple, normal inspection Cardiovascular: normal peripheral pulses, normal rate, regular rhythm, no gallop/murmur, no JVD Respiratory/Chest: chest wall non-tender, lungs clear, normal breath sounds, no respiratory distress, no accessory muscle use Abdomen: normal bowel sounds, non tender, soft, no organomegaly, no mass Extremities: normal range of motion, other Edema: trace edema Neurologic: battalion chief II-XII grossly normal, no motor/sensory deficits Skin: normal pigmentation, warm/dry Assessment/Plan Problem List: (1) Altered mental status (2) Encephalopathy (3) HTN (hypertension) (4) Diabetic nephropathy (5) Diabetic neuropathy (6) Acute osteomyelitis of metatarsal bone of right foot Assessment & Plan: Staph aureus and providencia. See ID and podiatry note. Continue ciprofloxacin and zosyn. Needs revision of stump. Needs angiogram of right lower extremity prior to surgery-see podiatry note. (7) Diabetes mellitus Assessment & Plan: Continue novolog and levemir (8) ESRD (end stage renal disease) Assessment & Plan: See nephology note. Next hemodialysis 12/08/17 Assessment/Plan Transfer to [facility] for angiogram and stump revision-see podiatry note. Miles Lobo MD Dec 11, 2017 15:56
[2017-12-11 16:00] VITALS: BP 120/71
--- NOTE | 2017-12-11 16:27 | Infectious Diseases Prog Note ---
Assessment/Plan Problems: (1) Acute osteomyelitis of metatarsal bone of right foot Assessment & Plan: with methicillin sensitive staph aureus, Providencia rettgeri, and proteus mirabilis , will need surgical revision of his right stump , after vascular evaluation is done as per trailer body assembler , continue cefazolin and ertapenem for left foot osteomyelitis for 6 weeks pending angioplasty and stump revision of the right foot (2) Ulcer of amputation stump of foot Assessment & Plan: with pus draining and underlying osteomyelitis of the metatarsal bones as per MRI of the right foot . 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 Assessment & Plan: with open wound draining purulent materials , due to ataph aureus and gram negative rods and underlying osteomyelitis , await wound culture and sensitivity , continue vancomycin and zosyn empiric coverage pending cultures , trailer body assembler eval is in progress (4) Sepsis Assessment & Plan: due to the above , continue cefazolin and ertapenem for 6 weeks to treat for osteomyelitis of the left foot stump (5) ESRD (end stage renal disease) Assessment & Plan: continue HD as per renal Subjective Constitutional: Reports: no symptoms HEENT: Reports: no symptoms Respiratory: Reports: no symptoms Breasts: Reports: no symptoms Cardiovascular: Reports: no symptoms Gastrointestinal/Abdominal: Reports: no symptoms Genitourinary: Reports: no symptoms Neurologic: Reports: no symptoms Psychiatric: Reports: no symptoms Skin: Reports: no symptoms Endocrine: Reports: no symptoms Hematologic: Reports: no symptoms Allergies: Coded Allergies: NO KNOWN ALLERGIES (Verified Allergy, Unknown, 12/04/17) Objective Vital Signs Last 24 Hour Vital Signs Date Time Temp Pulse Resp B/P (MAP) Pulse Ox O2 Delivery O2 Flow Rate FiO2 12/11/17 16:00 97.9 79 17 120/71 (87) 97 97.9 12/11/17 12:00 97.4 83 18 121/69 (86) 99 97.4 12/11/17 08:00 97.2 100 19 107/68 (81) 100 97.2 12/11/17 07:47 Room Air 12/11/17 04:00 97.5 87 18 96/56 (69) 100 97.5 12/11/17 00:00 97.8 95 18 100/63 (75) 100 97.8 12/10/17 22:01 Room Air 12/10/17 20:23 97.4 87 18 106/75 (85) 96 97.4 12/10/17 18:26 98.1 106 18 102/67 (79) 96 98.1 Height (Feet): 5 Height (Inches): 11.00 Weight (Pounds): 186 General Appearance: WD/WN, no acute distress HEENT: normocephalic, atraumatic, anicteric, mucous membranes moist, PERRL Respiratory/Chest: chest wall non-tender, lungs clear, normal breath sounds, no respiratory distress, no accessory muscle use Cardiovascular: normal peripheral pulses, normal rate, regular rhythm, no gallop/murmur, no JVD Abdomen: normal bowel sounds, soft, non tender, no organomegaly, non distended , no mass, no scars Genitourinary: normal external genitalia Extremities: no cyanosis, no clubbing Skin: no rash, no lesions, ulcers - right fot stump Neurologic/Psychiatric: alert, responsive Lymphatic: no neck adenopathy, no groin adenopathy Musculoskeletal: normal muscle bulk, no effusion Laboratory Tests Test 12/11/17 07:20 White Blood Count 5.8 K/UL (4.8-10.8) Red Blood Count 4.20 M/UL (4.70-6.10) L Hemoglobin 13.5 G/DL (14.2-18.0) L Hematocrit 41.7 % (42.0-52.0) L Mean Corpuscular Volume 99 FL (80-99) Mean Corpuscular Hemoglobin 32.1 PG (27.0-31.0) H Mean Corpuscular Hemoglobin Concent 32.3 G/DL (32.0-36.0) Red Cell Distribution Width 16.4 % (11.6-14.8) H Platelet Count 237 K/UL (150-450) Mean Platelet Volume 7.1 FL (6.5-10.1) Neutrophils (%) (Auto) 64.7 % (45.0-75.0) Lymphocytes (%) (Auto) 20.5 % (20.0-45.0) Monocytes (%) (Auto) 11.0 % (1.0-10.0) H Eosinophils (%) (Auto) 2.5 % (0.0-3.0) Basophils (%) (Auto) 1.4 % (0.0-2.0) Sodium Level 137 MMOL/L (136-145) Potassium Level 4.5 MMOL/L (3.5-5.1) Chloride Level 99 MMOL/L (98-107) Carbon Dioxide Level 22 MMOL/L (21-32) Anion Gap 17 mmol/L (5-15) H Blood Urea Nitrogen 74 mg/dL (7-18) H Creatinine 12.4 MG/DL (0.55-1.30) H Estimat Glomerular Filtration Rate 5.2 mL/min (>60) Glucose Level 159 MG/DL (74-106) #H Calcium Level 8.4 MG/DL (8.5-10.1) L Current Medications Medications (Trade) Dose Ordered Sig/Felix Route PRN Reason Start Time Stop Time Status Last Admin Dose Admin Acetaminophen (Tylenol) 650 mg Q4H PRN ORAL Mild Pain (Pain Scale 1-3) 12/05/17 19:15 01/03/18 15:14 Acetaminophen (Tylenol) 650 mg Q4H PRN ORAL fever (temp>100.5F) 12/05/17 19:15 01/03/18 15:14 Albuterol/ Ipratropium (Albuterol/ Ipratropium) 3 ml Q4H PRN HHN Shortness of Breath 12/11/17 08:00 12/16/17 07:59 Aspirin (ASA) 81 mg DAILY ORAL 12/06/17 09:00 01/04/18 08:59 12/11/17 08:38 Atorvastatin Calcium (Lipitor) 10 mg BEDTIME ORAL 12/05/17 21:00 01/03/18 20:59 12/10/17 21:38 Cefazolin Sodium 50 ml @ 100 mls/hr TuTh@2000 IVPB 12/13/17 20:00 12/20/17 19:59 Cefazolin Sodium 3 gm/Dextrose 110 ml @ 220 mls/hr QWEEK IVPB 12/17/17 20:00 12/24/17 19:59 Cinacalcet (Sensipar) 30 mg DAILY ORAL 12/06/17 09:00 01/04/18 08:59 12/11/17 08:38 Clonazepam (KlonoPIN) 1 mg BEDTIME ORAL 12/08/17 21:00 12/15/17 20:59 12/10/17 21:38 Dextrose (Dextrose 50%) 25 ml Q1H PRN IV Hypoglycemia 12/05/17 18:15 01/03/18 15:14 Dextrose (Dextrose 50%) 50 ml Q1H PRN IV Hypoglycemia 12/05/17 18:15 01/03/18 15:14 Docusate Sodium (Colace) 100 mg EVERY 12 HOURS ORAL 12/05/17 21:00 01/03/18 20:59 12/11/17 08:38 Ertapenem 0.5 gm/ Sodium Chloride 55 ml @ 110 mls/hr TuThSa@2100 IVPB 12/13/17 21:00 12/18/17 20:59 Escitalopram Oxalate (Lexapro) 10 mg DAILY ORAL 12/06/17 09:00 01/04/18 08:59 12/11/17 08:38 Heparin Sodium (Porcine) (Heparin 5000 units/ml) 5,000 units EVERY 8 HOURS SUBQ 12/05/17 22:00 01/03/18 21:59 12/11/17 13:14 Insulin Aspart (NovoLOG) BEFORE MEALS AND HS SUBQ 12/05/17 21:00 01/03/18 17:59 12/11/17 11:51 Insulin Detemir (Levemir) 14 units BEDTIME SUBQ 12/10/17 21:00 01/03/18 20:59 12/10/17 21:40 Nicotine (Nicoderm) 1 patch Q24H TDERMAL 12/10/17 12:00 01/09/18 11:59 12/11/17 11:48 Nitroglycerin (Ntg) 0.4 mg Q5M PRN SL Prn Chest Pain 12/05/17 17:45 01/03/18 15:14 Ondansetron HCl (Zofran) 4 mg Q6H PRN IVP Nausea & Vomiting 12/05/17 18:00 01/03/18 17:59 12/05/17 21:19 Polyethylene Glycol (Miralax) 17 gm DAILYPRN PRN ORAL Constipation 12/05/17 18:00 01/04/18 17:59 Cira Ceja M.D. Dec 11, 2017 16:27
[2017-12-11 17:08] LABS: ANION GAP 17 mmol/L (5-15); BLOOD UREA NITROGEN 85 mg/dL (7-18); CALCIUM 7.9 MG/DL (8.5-10.1); CARBON DIOXIDE 22 MMOL/L (21-32); CHLORIDE 96 MMOL/L (98-107); CREATININE 13.6 MG/DL (0.55-1.30); SODIUM 135 MMOL/L (136-145)
[2017-12-11] MEDS ORDERED: ceFAZolin 2gm/50ml Premix 50 ML IVPB SCH ×2 (18:00)
[2017-12-11] MEDS ORDERED: Ertapenem 0.5 GM in NS 55 ML IVPB SCH (20:00)
[2017-12-11 20:26] VITALS: BP 107/70
[2017-12-11] MEDS: Levemir Flexpen SUBQ SCH (20:49)
--- NOTE | 2017-12-11 22:44 | Nephrology Progress Note ---
Assessment/Plan Assessment 1. Altered mental status. 2. End-stage renal disease. 3. Anemia of chronic kidney disease. 4. Renal osteodystrophy. 5. Hypertension, well controlled. 6. Diabetes. Plan dialysis as schedule check phos and PTH continue epoen continue antibiotic Subjective Subjective alert and awake no complaints Objective Objective Last 24 Hour Vital Signs Date Time Temp Pulse Resp B/P (MAP) Pulse Ox O2 Delivery O2 Flow Rate FiO2 12/11/17 22:29 Room Air 12/11/17 22:18 97.8 12/11/17 21:48 97.8 12/11/17 20:26 97.8 94 18 107/70 (82) 99 97.8 12/11/17 20:15 90 18 Room Air 12/11/17 16:00 97.9 79 17 120/71 (87) 97 97.9 12/11/17 12:00 97.4 83 18 121/69 (86) 99 97.4 12/11/17 08:00 97.2 100 19 107/68 (81) 100 97.2 12/11/17 07:47 Room Air 12/11/17 04:00 97.5 87 18 96/56 (69) 100 97.5 12/11/17 00:00 97.8 95 18 100/63 (75) 100 97.8 Intake and Output 12/10/17 12/11/17 19:00 07:00 Intake Total 430 ml 565 ml Balance 430 ml 565 ml Intake Oral 430 ml 460 ml IV Total 105 ml # Voids 6 Laboratory Tests 12/11/17 07:20: White Blood Count 5.8, Red Blood Count 4.20L, Hemoglobin 13.5L, Hematocrit 41.7L , Mean Corpuscular Volume 99, Mean Corpuscular Hemoglobin 32.1H, Mean Corpuscular Hemoglobin Concent 32.3, Red Cell Distribution Width 16.4H, Platelet Count 237, Mean Platelet Volume 7.1, Neutrophils (%) (Auto) 64.7, Lymphocytes (%) (Auto) 20.5, Monocytes (%) (Auto) 11.0H, Eosinophils (%) (Auto) 2.5, Basophils (%) (Auto) 1.4, Sodium Level 137, Potassium Level 4.5, Chloride Level 99, Carbon Dioxide Level 22, Anion Gap 17H, Blood Urea Nitrogen 74H, Creatinine 12.4H, Estimat Glomerular Filtration Rate 5.2, Glucose Level 159#H, Calcium Level 8.4L 12/11/17 15:45: Sodium Level 135L, Potassium Level 5.0, Chloride Level 96L, Carbon Dioxide Level 22, Anion Gap 17H, Blood Urea Nitrogen 85H, Creatinine 13.6H, Estimat Glomerular Filtration Rate 4.7, Glucose Level 368#H, Calcium Level 7.9L Height (Feet): 5 Height (Inches): 11.00 Weight (Pounds): 186 Objective HEAD AND NECK: No JVP. No LAD. No thyromegaly. Extraocular movement intact. Pupils are reactive to light and accommodation. LUNGS: Clear to auscultation. CARDIAC: Regular rate and rhythm. S1 and S2. No murmur. No rub. ABDOMEN: Soft, nontender, and nondistended. EXTREMITIES: The patient on the right has transmetatarsal amputation. Tessa Schwartz MD Dec 11, 2017 22:44
--- NOTE | 2017-12-11 23:43 | Cardiology Progress Note ---
Assessment/Plan Assessment/Plan 1. Hypotension, continue PO intake, adjust fluid withdrawal during HD, normal LV systolic function with normal pulmonary artery pressure. 2. Transient tachycardia, resolved, most likely secondary to hypotension and possible intravascular volume depletion. 3. History of hypertension, currently controlled. 4. QT prolongation evident on electrocardiogram is most likely due to electrolyte abnormality associated with hemodialysis, magnesium level at 2.4. Subjective Subjective No cardiac events. Objective Last 24 Hour Vital Signs Date Time Temp Pulse Resp B/P (MAP) Pulse Ox O2 Delivery O2 Flow Rate FiO2 12/11/17 22:29 Room Air 12/11/17 22:18 97.8 12/11/17 21:48 97.8 12/11/17 20:26 97.8 94 18 107/70 (82) 99 97.8 12/11/17 20:15 90 18 Room Air 12/11/17 16:00 97.9 79 17 120/71 (87) 97 97.9 12/11/17 12:00 97.4 83 18 121/69 (86) 99 97.4 12/11/17 08:00 97.2 100 19 107/68 (81) 100 97.2 12/11/17 07:47 Room Air 12/11/17 04:00 97.5 87 18 96/56 (69) 100 97.5 12/11/17 00:00 97.8 95 18 100/63 (75) 100 97.8 Intake and Output 12/10/17 12/11/17 19:00 07:00 Intake Total 430 ml 565 ml Balance 430 ml 565 ml Intake Oral 430 ml 460 ml IV Total 105 ml # Voids 6 2D Echo: LVEF 70%, Mild LVH, Grade I LVDD, RVSP 20 mmHg Laboratory Tests Test 12/11/17 07:20 12/11/17 15:45 White Blood Count 5.8 K/UL (4.8-10.8) Red Blood Count 4.20 M/UL (4.70-6.10) L Hemoglobin 13.5 G/DL (14.2-18.0) L Hematocrit 41.7 % (42.0-52.0) L Mean Corpuscular Volume 99 FL (80-99) Mean Corpuscular Hemoglobin 32.1 PG (27.0-31.0) H Mean Corpuscular Hemoglobin Concent 32.3 G/DL (32.0-36.0) Red Cell Distribution Width 16.4 % (11.6-14.8) H Platelet Count 237 K/UL (150-450) Mean Platelet Volume 7.1 FL (6.5-10.1) Neutrophils (%) (Auto) 64.7 % (45.0-75.0) Lymphocytes (%) (Auto) 20.5 % (20.0-45.0) Monocytes (%) (Auto) 11.0 % (1.0-10.0) H Eosinophils (%) (Auto) 2.5 % (0.0-3.0) Basophils (%) (Auto) 1.4 % (0.0-2.0) Sodium Level 137 MMOL/L (136-145) 135 MMOL/L (136-145) L Potassium Level 4.5 MMOL/L (3.5-5.1) 5.0 MMOL/L (3.5-5.1) Chloride Level 99 MMOL/L (98-107) 96 MMOL/L (98-107) L Carbon Dioxide Level 22 MMOL/L (21-32) 22 MMOL/L (21-32) Anion Gap 17 mmol/L (5-15) H 17 mmol/L (5-15) H Blood Urea Nitrogen 74 mg/dL (7-18) H 85 mg/dL (7-18) H Creatinine 12.4 MG/DL (0.55-1.30) H 13.6 MG/DL (0.55-1.30) H Estimat Glomerular Filtration Rate 5.2 mL/min (>60) 4.7 mL/min (>60) Glucose Level 159 MG/DL (74-106) #H 368 MG/DL (74-106) #H Calcium Level 8.4 MG/DL (8.5-10.1) L 7.9 MG/DL (8.5-10.1) L Objective HEENT: Atraumatic and normocephalic. Anicteric. Pupils are equal, round, and reactive to light and accommodation. Conjunctiva pallor is present. NECK: JVP less than 5 cm. No carotid bruit. Carotid upstrokes 2+ bilaterally. CARDIOVASCULAR: Normal S1, S2. Regular rate and rhythm. No murmurs, gallops, or rubs. PMI is at fourth intercostal space in the midclavicular line. LUNGS: Clear to auscultation bilaterally. ABDOMEN: Soft, nontender, and nondistended. No hepatosplenomegaly. Positive bowel sounds. EXTREMITIES: Right upper extremity AV fistula, which is functional. Right lower extremity transmetatarsal amputation. Lizandro Falcon MD Dec 11, 2017 23:43
[2017-12-12] VITALS: BP 107/65
[2017-12-12 04:40] VITALS: BP 118/72
[2017-12-12] MEDS: Heparin 5000 units/ml inj SUBQ SCH ×2 (06:17→14:00)
[2017-12-12] MEDS: NovoLOG Insulin Flexpen SUBQ SCH ×2 (06:17→12:23)
[2017-12-12 06:58] LABS: BASOPHILS % (AUTO) 1.4 % (0.0-2.0); HEMATOCRIT 37.6 % (42.0-52.0); HEMOGLOBIN 12.4 G/DL (14.2-18.0); LYMPHOCYTES % (AUTO) 23.9 % (20.0-45.0); MEAN CORPUSCULAR VOLUME 99 FL (80-99); MONOCYTES % (AUTO) 12.4 % (1.0-10.0); NEUTROPHILS % (AUTO) 58.3 % (45.0-75.0); PLATELET COUNT 220 K/UL (150-450); RED BLOOD COUNT 3.79 M/UL (4.70-6.10); RED CELL DISTRIBUTION WIDTH 16.7 % (11.6-14.8); WHITE BLOOD COUNT 5.6 K/UL (4.8-10.8)
[2017-12-12 08:00] VITALS: BP 129/86
[2017-12-12] MEDS: Sensipar 30mg Tab ORAL SCH (08:36)
[2017-12-12] MEDS: Docusate 100mg cap ORAL SCH (08:36)
[2017-12-12] MEDS: Aspirin Baby 81mg ORAL SCH (08:36)
--- NOTE | 2017-12-12 08:45 | Nephrology Progress Note ---
Assessment/Plan Assessment 1. Altered mental status. 2. End-stage renal disease. 3. Anemia of chronic kidney disease. 4. Renal osteodystrophy. 5. Hypertension, well controlled. 6. Diabetes. Plan dialysis as schedule check phos and PTH continue epoen continue antibiotic Subjective Subjective alert and awake no complaints Objective Objective Last 24 Hour Vital Signs Date Time Temp Pulse Resp B/P (MAP) Pulse Ox O2 Delivery O2 Flow Rate FiO2 12/12/17 04:40 97.3 79 18 118/72 (87) 100 97.3 12/12/17 00:00 97.2 79 18 107/65 (79) 100 97.2 12/11/17 22:29 Room Air 12/11/17 22:18 97.8 12/11/17 21:48 97.8 12/11/17 20:26 97.8 94 18 107/70 (82) 99 97.8 12/11/17 20:15 90 18 Room Air 12/11/17 16:00 97.9 79 17 120/71 (87) 97 97.9 12/11/17 12:00 97.4 83 18 121/69 (86) 99 97.4 Intake and Output 12/11/17 12/12/17 19:00 07:00 Intake Total 1200 ml 480 ml Balance 1200 ml 480 ml Intake Oral 480 ml Other 1200 ml # Voids 5 5 Laboratory Tests 12/11/17 15:45: Sodium Level 135L, Potassium Level 5.0, Chloride Level 96L, Carbon Dioxide Level 22, Anion Gap 17H, Blood Urea Nitrogen 85H, Creatinine 13.6H, Estimat Glomerular Filtration Rate 4.7, Glucose Level 368#H, Calcium Level 7.9L 12/12/17 05:10: White Blood Count 5.6, Red Blood Count 3.79L, Hemoglobin 12.4L, Hematocrit 37.6L , Mean Corpuscular Volume 99, Mean Corpuscular Hemoglobin 32.9H, Mean Corpuscular Hemoglobin Concent 33.1, Red Cell Distribution Width 16.7H, Platelet Count 220, Mean Platelet Volume 7.8, Neutrophils (%) (Auto) 58.3, Lymphocytes (%) (Auto) 23.9, Monocytes (%) (Auto) 12.4H, Eosinophils (%) (Auto) 4.0H, Basophils (%) (Auto) 1.4 Height (Feet): 5 Height (Inches): 11.00 Weight (Pounds): 186 Objective HEAD AND NECK: No JVP. No LAD. No thyromegaly. Extraocular movement intact. Pupils are reactive to light and accommodation. LUNGS: Clear to auscultation. CARDIAC: Regular rate and rhythm. S1 and S2. No murmur. No rub. ABDOMEN: Soft, nontender, and nondistended. EXTREMITIES: The patient on the right has transmetatarsal amputation. Tessa Schwartz MD Dec 12, 2017 08:45
[2017-12-12 12:00] VITALS: BP 146/86
--- NOTE | 2017-12-12 12:04 | Psych Consult Progress Note ---
Psych Consult Progress Note Consult 12/10/17 Vital Signs Last 24 Hour Vital Signs Date Time Temp Pulse Resp B/P (MAP) Pulse Ox O2 Delivery O2 Flow Rate FiO2 12/12/17 08:00 Room Air 12/12/17 08:00 96.6 84 19 129/86 (100) 100 96.6 12/12/17 04:40 97.3 79 18 118/72 (87) 100 97.3 12/12/17 00:00 97.2 79 18 107/65 (79) 100 97.2 12/11/17 22:29 Room Air 12/11/17 22:18 97.8 12/11/17 21:48 97.8 12/11/17 20:26 97.8 94 18 107/70 (82) 99 97.8 12/11/17 20:15 90 18 Room Air 12/11/17 16:00 97.9 79 17 120/71 (87) 97 97.9 Labs Laboratory Tests Test 12/11/17 15:45 12/12/17 05:10 Sodium Level 135 MMOL/L (136-145) L Potassium Level 5.0 MMOL/L (3.5-5.1) Chloride Level 96 MMOL/L (98-107) L Carbon Dioxide Level 22 MMOL/L (21-32) Anion Gap 17 mmol/L (5-15) H Blood Urea Nitrogen 85 mg/dL (7-18) H Creatinine 13.6 MG/DL (0.55-1.30) H Estimat Glomerular Filtration Rate 4.7 mL/min (>60) Glucose Level 368 MG/DL (74-106) #H Calcium Level 7.9 MG/DL (8.5-10.1) L White Blood Count 5.6 K/UL (4.8-10.8) Red Blood Count 3.79 M/UL (4.70-6.10) L Hemoglobin 12.4 G/DL (14.2-18.0) L Hematocrit 37.6 % (42.0-52.0) L Mean Corpuscular Volume 99 FL (80-99) Mean Corpuscular Hemoglobin 32.9 PG (27.0-31.0) H Mean Corpuscular Hemoglobin Concent 33.1 G/DL (32.0-36.0) Red Cell Distribution Width 16.7 % (11.6-14.8) H Platelet Count 220 K/UL (150-450) Mean Platelet Volume 7.8 FL (6.5-10.1) Neutrophils (%) (Auto) 58.3 % (45.0-75.0) Lymphocytes (%) (Auto) 23.9 % (20.0-45.0) Monocytes (%) (Auto) 12.4 % (1.0-10.0) H Eosinophils (%) (Auto) 4.0 % (0.0-3.0) H Basophils (%) (Auto) 1.4 % (0.0-2.0) Medications Current Medications Medications (Trade) Dose Ordered Sig/Felix Route PRN Reason Start Time Stop Time Status Last Admin Dose Admin Acetaminophen (Tylenol) 650 mg Q4H PRN ORAL Mild Pain (Pain Scale 1-3) 12/05/17 19:15 01/03/18 15:14 12/11/17 21:48 Acetaminophen (Tylenol) 650 mg Q4H PRN ORAL fever (temp>100.5F) 12/05/17 19:15 01/03/18 15:14 Albuterol/ Ipratropium (Albuterol/ Ipratropium) 3 ml Q4H PRN HHN Shortness of Breath 12/11/17 08:00 12/16/17 07:59 Aspirin (ASA) 81 mg DAILY ORAL 12/06/17 09:00 01/04/18 08:59 12/12/17 08:36 Atorvastatin Calcium (Lipitor) 10 mg BEDTIME ORAL 12/05/17 21:00 01/03/18 20:59 12/11/17 20:48 Cefazolin Sodium 50 ml @ 100 mls/hr TuTh@2000 IVPB 12/13/17 20:00 12/20/17 19:59 Cefazolin Sodium 3 gm/Dextrose 110 ml @ 220 mls/hr QWEEK IVPB 12/17/17 20:00 12/24/17 19:59 Cinacalcet (Sensipar) 30 mg DAILY ORAL 12/06/17 09:00 01/04/18 08:59 12/12/17 08:36 Clonazepam (KlonoPIN) 1 mg BEDTIME ORAL 12/08/17 21:00 12/15/17 20:59 12/11/17 20:48 Dextrose (Dextrose 50%) 25 ml Q1H PRN IV Hypoglycemia 12/05/17 18:15 01/03/18 15:14 Dextrose (Dextrose 50%) 50 ml Q1H PRN IV Hypoglycemia 12/05/17 18:15 01/03/18 15:14 Docusate Sodium (Colace) 100 mg EVERY 12 HOURS ORAL 12/05/17 21:00 01/03/18 20:59 12/11/17 08:38 Ertapenem 0.5 gm/ Sodium Chloride 55 ml @ 110 mls/hr TuThSa@2100 IVPB 12/13/17 21:00 12/18/17 20:59 Escitalopram Oxalate (Lexapro) 10 mg DAILY ORAL 12/06/17 09:00 01/04/18 08:59 12/12/17 08:36 Heparin Sodium (Porcine) (Heparin 5000 units/ml) 5,000 units EVERY 8 HOURS SUBQ 12/05/17 22:00 01/03/18 21:59 12/12/17 06:17 Insulin Aspart (NovoLOG) BEFORE MEALS AND HS SUBQ 12/05/17 21:00 01/03/18 17:59 12/12/17 06:17 Insulin Detemir (Levemir) 14 units BEDTIME SUBQ 12/10/17 21:00 01/03/18 20:59 12/11/17 20:49 Nicotine (Nicoderm) 1 patch Q24H TDERMAL 12/10/17 12:00 01/09/18 11:59 12/11/17 11:48 Nitroglycerin (Ntg) 0.4 mg Q5M PRN SL Prn Chest Pain 12/05/17 17:45 01/03/18 15:14 Ondansetron HCl (Zofran) 4 mg Q6H PRN IVP Nausea & Vomiting 12/05/17 18:00 01/03/18 17:59 12/05/17 21:19 Polyethylene Glycol (Miralax) 17 gm DAILYPRN PRN ORAL Constipation 12/05/17 18:00 01/04/18 17:59 Problems: (1) Altered mental status Assessment & Plan: MDD Lexapro 10mg po qam Provided ro/st klonopin 1mg po qhs Leora Bishop MD Dec 12, 2017 12:04
--- NOTE | 2017-12-12 12:04 | General Progress Note ---
Assessment/Plan Status: stable, progressing Assessment/Plan MDD Lexapro 10mg po qam Provided ro/st klonopin 1mg po qhs Subjective Date patient seen: Dec 12, 2017 Neurologic/Psychiatric: Reports: anxiety, depressed, emotional problems Allergies: Coded Allergies: NO KNOWN ALLERGIES (Verified Allergy, Unknown, 12/04/17) Objective Last 24 Hour Vital Signs Date Time Temp Pulse Resp B/P (MAP) Pulse Ox O2 Delivery O2 Flow Rate FiO2 12/12/17 08:00 Room Air 12/12/17 08:00 96.6 84 19 129/86 (100) 100 96.6 12/12/17 04:40 97.3 79 18 118/72 (87) 100 97.3 12/12/17 00:00 97.2 79 18 107/65 (79) 100 97.2 12/11/17 22:29 Room Air 12/11/17 22:18 97.8 12/11/17 21:48 97.8 12/11/17 20:26 97.8 94 18 107/70 (82) 99 97.8 12/11/17 20:15 90 18 Room Air 12/11/17 16:00 97.9 79 17 120/71 (87) 97 97.9 Intake and Output 12/11/17 12/12/17 19:00 07:00 Intake Total 1200 ml 480 ml Balance 1200 ml 480 ml Intake Oral 480 ml Other 1200 ml # Voids 5 5 Laboratory Tests 12/11/17 15:45: Sodium Level 135L, Potassium Level 5.0, Chloride Level 96L, Carbon Dioxide Level 22, Anion Gap 17H, Blood Urea Nitrogen 85H, Creatinine 13.6H, Estimat Glomerular Filtration Rate 4.7, Glucose Level 368#H, Calcium Level 7.9L 12/12/17 05:10: White Blood Count 5.6, Red Blood Count 3.79L, Hemoglobin 12.4L, Hematocrit 37.6L , Mean Corpuscular Volume 99, Mean Corpuscular Hemoglobin 32.9H, Mean Corpuscular Hemoglobin Concent 33.1, Red Cell Distribution Width 16.7H, Platelet Count 220, Mean Platelet Volume 7.8, Neutrophils (%) (Auto) 58.3, Lymphocytes (%) (Auto) 23.9, Monocytes (%) (Auto) 12.4H, Eosinophils (%) (Auto) 4.0H, Basophils (%) (Auto) 1.4 Height (Feet): 5 Height (Inches): 11.00 Weight (Pounds): 186 General Appearance: no apparent distress, alert Neurologic: oriented x 3, depressed affect Leora Bishop MD Dec 12, 2017 12:04
--- NOTE | 2017-12-12 13:21 | Pulmonology Progress Note ---
Assessment/Plan Problems: (1) Acute osteomyelitis of metatarsal bone of right foot (2) Sepsis (3) 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 (4) Diabetes mellitus (5) ESRD (end stage renal disease) Assessment/Plan pt will be transferred to [facility] for vascular studies no new complains iv abx check cultures wound care might need short term placement to get wound care and abx Subjective ROS Limited/Unobtainable: No Constitutional: Reports: no symptoms HEENT: Repors: no symptoms Respiratory: Reports: no symptoms Allergies: Coded Allergies: NO KNOWN ALLERGIES (Verified Allergy, Unknown, 12/04/17) Objective Last 24 Hour Vital Signs Date Time Temp Pulse Resp B/P (MAP) Pulse Ox O2 Delivery O2 Flow Rate FiO2 12/12/17 12:03 88 20 Room Air 12/12/17 12:00 98.9 85 18 146/86 (106) 100 98.9 12/12/17 08:00 Room Air 12/12/17 08:00 96.6 84 19 129/86 (100) 100 96.6 12/12/17 04:40 97.3 79 18 118/72 (87) 100 97.3 12/12/17 00:00 97.2 79 18 107/65 (79) 100 97.2 12/11/17 22:29 Room Air 12/11/17 22:18 97.8 12/11/17 21:48 97.8 12/11/17 20:26 97.8 94 18 107/70 (82) 99 97.8 12/11/17 20:15 90 18 Room Air 12/11/17 16:00 97.9 79 17 120/71 (87) 97 97.9 Intake and Output 12/11/17 12/12/17 19:00 07:00 Intake Total 1200 ml 480 ml Balance 1200 ml 480 ml Intake Oral 480 ml Other 1200 ml # Voids 5 5 General Appearance: WD/WN HEENT: normocephalic, atraumatic Respiratory/Chest: chest wall non-tender, lungs clear, normal breath sounds Cardiovascular: normal peripheral pulses, normal rate Abdomen: normal bowel sounds, soft, non tender Genitourinary: normal external genitalia Neurologic/Psychiatric: mining manager II-XII grossly normal Laboratory Tests 12/11/17 15:45: Sodium Level 135L, Potassium Level 5.0, Chloride Level 96L, Carbon Dioxide Level 22, Anion Gap 17H, Blood Urea Nitrogen 85H, Creatinine 13.6H, Estimat Glomerular Filtration Rate 4.7, Glucose Level 368#H, Calcium Level 7.9L 12/12/17 05:10: White Blood Count 5.6, Red Blood Count 3.79L, Hemoglobin 12.4L, Hematocrit 37.6L , Mean Corpuscular Volume 99, Mean Corpuscular Hemoglobin 32.9H, Mean Corpuscular Hemoglobin Concent 33.1, Red Cell Distribution Width 16.7H, Platelet Count 220, Mean Platelet Volume 7.8, Neutrophils (%) (Auto) 58.3, Lymphocytes (%) (Auto) 23.9, Monocytes (%) (Auto) 12.4H, Eosinophils (%) (Auto) 4.0H, Basophils (%) (Auto) 1.4 Current Medications Medications (Trade) Dose Ordered Sig/Felix Route PRN Reason Start Time Stop Time Status Last Admin Dose Admin Acetaminophen (Tylenol) 650 mg Q4H PRN ORAL Mild Pain (Pain Scale 1-3) 12/05/17 19:15 01/03/18 15:14 12/11/17 21:48 Acetaminophen (Tylenol) 650 mg Q4H PRN ORAL fever (temp>100.5F) 12/05/17 19:15 01/03/18 15:14 Albuterol/ Ipratropium (Albuterol/ Ipratropium) 3 ml Q4H PRN HHN Shortness of Breath 12/11/17 08:00 12/16/17 07:59 Aspirin (ASA) 81 mg DAILY ORAL 12/06/17 09:00 01/04/18 08:59 12/12/17 08:36 Atorvastatin Calcium (Lipitor) 10 mg BEDTIME ORAL 12/05/17 21:00 01/03/18 20:59 12/11/17 20:48 Cefazolin Sodium 50 ml @ 100 mls/hr TuTh@2000 IVPB 12/13/17 20:00 12/20/17 19:59 Cefazolin Sodium 3 gm/Dextrose 110 ml @ 220 mls/hr QWEEK IVPB 12/17/17 20:00 12/24/17 19:59 Cinacalcet (Sensipar) 30 mg DAILY ORAL 12/06/17 09:00 01/04/18 08:59 12/12/17 08:36 Clonazepam (KlonoPIN) 1 mg BEDTIME ORAL 12/08/17 21:00 12/15/17 20:59 12/11/17 20:48 Dextrose (Dextrose 50%) 25 ml Q1H PRN IV Hypoglycemia 12/05/17 18:15 01/03/18 15:14 Dextrose (Dextrose 50%) 50 ml Q1H PRN IV Hypoglycemia 12/05/17 18:15 01/03/18 15:14 Docusate Sodium (Colace) 100 mg EVERY 12 HOURS ORAL 12/05/17 21:00 01/03/18 20:59 12/11/17 08:38 Ertapenem 0.5 gm/ Sodium Chloride 55 ml @ 110 mls/hr TuThSa@2100 IVPB 12/13/17 21:00 12/18/17 20:59 Escitalopram Oxalate (Lexapro) 10 mg DAILY ORAL 12/06/17 09:00 01/04/18 08:59 12/12/17 08:36 Heparin Sodium (Porcine) (Heparin 5000 units/ml) 5,000 units EVERY 8 HOURS SUBQ 12/05/17 22:00 01/03/18 21:59 12/12/17 06:17 Insulin Aspart (NovoLOG) BEFORE MEALS AND HS SUBQ 12/05/17 21:00 01/03/18 17:59 12/12/17 12:23 Insulin Detemir (Levemir) 14 units BEDTIME SUBQ 12/10/17 21:00 01/03/18 20:59 12/11/17 20:49 Nicotine (Nicoderm) 1 patch Q24H TDERMAL 12/10/17 12:00 01/09/18 11:59 12/12/17 12:24 Nitroglycerin (Ntg) 0.4 mg Q5M PRN SL Prn Chest Pain 12/05/17 17:45 01/03/18 15:14 Ondansetron HCl (Zofran) 4 mg Q6H PRN IVP Nausea & Vomiting 12/05/17 18:00 01/03/18 17:59 12/05/17 21:19 Polyethylene Glycol (Miralax) 17 gm DAILYPRN PRN ORAL Constipation 12/05/17 18:00 01/04/18 17:59 Jorge Anaya MD Dec 12, 2017 13:21
--- NOTE | 2017-12-12 14:55 | Infectious Diseases Prog Note ---
Assessment/Plan Problems: (1) Acute osteomyelitis of metatarsal bone of right foot Assessment & Plan: with methicillin sensitive staph aureus, Providencia rettgeri, and proteus mirabilis , will need surgical revision of his right stump , after vascular evaluation is done as per maintenance groundskeeper , continue cefazolin and ertapenem for left foot osteomyelitis for 6 weeks pending angioplasty and stump revision of the right foot . patient is going to [facility] today for angiography , will continue to follow over there (2) Ulcer of amputation stump of foot Assessment & Plan: with pus draining and underlying osteomyelitis of the metatarsal bones as per MRI of the right foot . 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 Assessment & Plan: with open wound draining purulent materials , due to ataph aureus and gram negative rods and underlying osteomyelitis , await wound culture and sensitivity , continue vancomycin and zosyn empiric coverage pending cultures , maintenance groundskeeper eval is in progress (4) Sepsis Assessment & Plan: due to the above , continue cefazolin and ertapenem for 6 weeks to treat for osteomyelitis of the left foot stump (5) ESRD (end stage renal disease) Assessment & Plan: continue HD as per renal Subjective Constitutional: Reports: no symptoms HEENT: Reports: no symptoms Respiratory: Reports: no symptoms Breasts: Reports: no symptoms Cardiovascular: Reports: no symptoms Gastrointestinal/Abdominal: Reports: no symptoms Genitourinary: Reports: no symptoms Neurologic: Reports: no symptoms Psychiatric: Reports: no symptoms Skin: Reports: no symptoms Endocrine: Reports: no symptoms Hematologic: Reports: no symptoms Musculoskeletal: Reports: no symptoms Allergies: Coded Allergies: NO KNOWN ALLERGIES (Verified Allergy, Unknown, 12/04/17) Objective Vital Signs Last 24 Hour Vital Signs Date Time Temp Pulse Resp B/P (MAP) Pulse Ox O2 Delivery O2 Flow Rate FiO2 12/12/17 12:03 88 20 Room Air 12/12/17 12:00 98.9 85 18 146/86 (106) 100 98.9 12/12/17 08:00 Room Air 12/12/17 08:00 96.6 84 19 129/86 (100) 100 96.6 12/12/17 04:40 97.3 79 18 118/72 (87) 100 97.3 12/12/17 00:00 97.2 79 18 107/65 (79) 100 97.2 12/11/17 22:29 Room Air 12/11/17 22:18 97.8 12/11/17 21:48 97.8 12/11/17 20:26 97.8 94 18 107/70 (82) 99 97.8 12/11/17 20:15 90 18 Room Air 12/11/17 16:00 97.9 79 17 120/71 (87) 97 97.9 Height (Feet): 5 Height (Inches): 11.00 Weight (Pounds): 186 General Appearance: WD/WN, no acute distress HEENT: normocephalic, atraumatic, anicteric, mucous membranes moist Respiratory/Chest: chest wall non-tender, lungs clear, normal breath sounds, no respiratory distress, no accessory muscle use Cardiovascular: normal peripheral pulses, normal rate, regular rhythm, no gallop/murmur, no JVD Abdomen: normal bowel sounds, soft, non tender, no organomegaly, non distended , no mass, no scars Extremities: no cyanosis, no clubbing Skin: no rash, no lesions Neurologic/Psychiatric: alert, oriented x 3 Lymphatic: no neck adenopathy, no groin adenopathy Musculoskeletal: normal muscle bulk, no effusion Laboratory Tests Test 12/11/17 15:45 12/12/17 05:10 Sodium Level 135 MMOL/L (136-145) L Potassium Level 5.0 MMOL/L (3.5-5.1) Chloride Level 96 MMOL/L (98-107) L Carbon Dioxide Level 22 MMOL/L (21-32) Anion Gap 17 mmol/L (5-15) H Blood Urea Nitrogen 85 mg/dL (7-18) H Creatinine 13.6 MG/DL (0.55-1.30) H Estimat Glomerular Filtration Rate 4.7 mL/min (>60) Glucose Level 368 MG/DL (74-106) #H Calcium Level 7.9 MG/DL (8.5-10.1) L White Blood Count 5.6 K/UL (4.8-10.8) Red Blood Count 3.79 M/UL (4.70-6.10) L Hemoglobin 12.4 G/DL (14.2-18.0) L Hematocrit 37.6 % (42.0-52.0) L Mean Corpuscular Volume 99 FL (80-99) Mean Corpuscular Hemoglobin 32.9 PG (27.0-31.0) H Mean Corpuscular Hemoglobin Concent 33.1 G/DL (32.0-36.0) Red Cell Distribution Width 16.7 % (11.6-14.8) H Platelet Count 220 K/UL (150-450) Mean Platelet Volume 7.8 FL (6.5-10.1) Neutrophils (%) (Auto) 58.3 % (45.0-75.0) Lymphocytes (%) (Auto) 23.9 % (20.0-45.0) Monocytes (%) (Auto) 12.4 % (1.0-10.0) H Eosinophils (%) (Auto) 4.0 % (0.0-3.0) H Basophils (%) (Auto) 1.4 % (0.0-2.0) Current Medications Medications (Trade) Dose Ordered Sig/Felix Route PRN Reason Start Time Stop Time Status Last Admin Dose Admin Acetaminophen (Tylenol) 650 mg Q4H PRN ORAL Mild Pain (Pain Scale 1-3) 12/05/17 19:15 01/03/18 15:14 12/11/17 21:48 Acetaminophen (Tylenol) 650 mg Q4H PRN ORAL fever (temp>100.5F) 12/05/17 19:15 01/03/18 15:14 Albuterol/ Ipratropium (Albuterol/ Ipratropium) 3 ml Q4H PRN HHN Shortness of Breath 12/11/17 08:00 12/16/17 07:59 Aspirin (ASA) 81 mg DAILY ORAL 12/06/17 09:00 01/04/18 08:59 12/12/17 08:36 Atorvastatin Calcium (Lipitor) 10 mg BEDTIME ORAL 12/05/17 21:00 01/03/18 20:59 12/11/17 20:48 Cefazolin Sodium 50 ml @ 100 mls/hr TuTh@2000 IVPB 12/13/17 20:00 12/20/17 19:59 Cefazolin Sodium 3 gm/Dextrose 110 ml @ 220 mls/hr QWEEK IVPB 12/17/17 20:00 12/24/17 19:59 Cinacalcet (Sensipar) 30 mg DAILY ORAL 12/06/17 09:00 01/04/18 08:59 12/12/17 08:36 Clonazepam (KlonoPIN) 1 mg BEDTIME ORAL 12/08/17 21:00 12/15/17 20:59 12/11/17 20:48 Dextrose (Dextrose 50%) 25 ml Q1H PRN IV Hypoglycemia 12/05/17 18:15 01/03/18 15:14 Dextrose (Dextrose 50%) 50 ml Q1H PRN IV Hypoglycemia 12/05/17 18:15 01/03/18 15:14 Docusate Sodium (Colace) 100 mg EVERY 12 HOURS ORAL 12/05/17 21:00 01/03/18 20:59 12/11/17 08:38 Ertapenem 0.5 gm/ Sodium Chloride 55 ml @ 110 mls/hr TuThSa@2100 IVPB 12/13/17 21:00 12/18/17 20:59 Escitalopram Oxalate (Lexapro) 10 mg DAILY ORAL 12/06/17 09:00 01/04/18 08:59 12/12/17 08:36 Heparin Sodium (Porcine) (Heparin 5000 units/ml) 5,000 units EVERY 8 HOURS SUBQ 12/05/17 22:00 01/03/18 21:59 12/12/17 06:17 Insulin Aspart (NovoLOG) BEFORE MEALS AND HS SUBQ 12/05/17 21:00 01/03/18 17:59 12/12/17 12:23 Insulin Detemir (Levemir) 14 units BEDTIME SUBQ 12/10/17 21:00 01/03/18 20:59 12/11/17 20:49 Nicotine (Nicoderm) 1 patch Q24H TDERMAL 12/10/17 12:00 01/09/18 11:59 12/12/17 12:24 Nitroglycerin (Ntg) 0.4 mg Q5M PRN SL Prn Chest Pain 12/05/17 17:45 01/03/18 15:14 Ondansetron HCl (Zofran) 4 mg Q6H PRN IVP Nausea & Vomiting 12/05/17 18:00 01/03/18 17:59 12/05/17 21:19 Polyethylene Glycol (Miralax) 17 gm DAILYPRN PRN ORAL Constipation 12/05/17 18:00 01/04/18 17:59 Cira Ceja M.D. Dec 12, 2017 14:55
--- NOTE | 2017-12-12 15:14 | Diagnostic Imaging Report ---
APPROVED REPORT CPT Code: 27790 Symptoms Comments: Comments Status post Transmetatarsal amputation on the right foot RIGHT LEG: Common femoral artery Doppler waveform analysis is mildly elevated with triphasic flow. Color flow duplex sonography reveals a mild (20-30%) stenosis at the proximal superficial femoral artery. A moderate (50-60%) stenosis is seen in the popliteal artery. The tibioperoneal trunks are not well visualized. The posterior tibial, anterior tibial and dorsalis pedis arteries are also heavily calcified. Doppler tibial artery waveform analysis is monophasic and with diminished amplitude, consistent with severe ischemia at rest. LEFT LEG: Common femoral artery waveform analysis is within normal limits at rest. Color flow duplex sonography reveals minimal calcification throughout the superficial femoral and popliteal arteries. There is no evidence of stenosis or occlusion within these segments. The tibioperoneal trunks are not well visualized. The posterior tibial, anterior tibial and dorsalis pedis arteries are also heavily calcified. Doppler tibial artery waveform analysis is monophasic and with diminished amplitude, consistent with severe ischemia at rest.
--- NOTE | 2017-12-12 15:14 | Diagnostic Imaging Report ---
APPROVED REPORT CPT Code: 38548 Vascular Symptoms Comments: SYNCOPE. Doppler Spectral Velocity Analysis RightLeft RIGHT SIDE: CCA - Imaging reveals no significant plaque within the extracranial carotid arteries. The Doppler spectral flow analysis is within normal limits throughout the extracranial carotid arteries. VERTEBRAL - The vertebral artery is within normal limits. LEFT SIDE: ICA/BULB- Imaging reveals irregular, minimal plaque (5%) in the carotid bulb arteries and common carotid artery. VERTEBRAL - The vertebral artery is patent, without evidence of stenosis or steal.
--- NOTE | 2017-12-13 13:53 | Discharge Summary ---
Discharge Summary Discharge Summary _ DATE OF ADMISSION: 12/04/2017 DATE OF DISCHARGE: 2017 REASON FOR ADMISSION: 52 years old male with past medical history of upper GI bleeding, poorly controlled diabetes mellitus type 2, end-stage renal disease, on hemodialysis, gastritis duodenitis , ,history of CVA in 2011, hemorrhagic esophagitis, history of renal cell carcinoma, status post left nephrectomy, prior history of osteomyelitis of the food with transmetatarsal amputation of the right food, hypertension dyslipidemia, peripheral vascular disease, presented initially to [facility]. The patient was noted to be altered r at that time, weak and confused. He called his sister and stated that he was not feeling well. Her went to check on him and found that he was confused, not feeling well, and called paramedics. Patient subsequently was transferred to [facility] for further evaluation. Upon initial evaluation patient had CT of the head which was unremarkable. Chest x-ray revealed no acute cardiopulmonary pathology. Patient started on empiric antibiotic for presumed sepsis and subsequently transferred to [facility] for further evaluation and management . Laboratory workup revealed no leukocytosis ,stable hemoglobin and hematocrit . BUN 41, creatinine 7.1 ; consistent with known history of end-stage renal disease. Glucose 354. Lactic acid 3.6. Patient admitted with diagnoses of altered mental status ,likely secondary to underlying infection, lactic acidosis, hyperglycemia, end-stage renal disease on hemodialysis, hypertension, diabetes mellitus type 2 out of control, diabetic nephropathy, diabetic polyneuropathy, severe peripheral vascular disease, hypertension. CONSULTANTS: forensic ballistics expert Dr. Falcon pulmonary Dr. Anaya ID specialist global sales executive Dr. Schwartz vascular surgery Dr. Alexis granite block paver Dr. Lane psychiatrist [facility] COURSE: Patient admitted to telemetry floor. Patient was mildly dehydrated and received 100 mL bolus at [facility]. Patient was pancultured and started on broad-spectrum antibiotics. MRI of the left foot revealed acute osteomyelitis of distal aspects of the second through fourth metatarsals . Statin and antiplatelet therapy were continued. Carotid duplex was essentially negative. Antibiotic provided as per ID specialist recommendations. Blood culture were negative. Wound culture revealed Proteus, Providencia stuartii , Staphylococcus aureus. Patient will need total 6 weeks of antibiotics. Wound care provided as per granite block paver recommendations. Blood pressure was stable . Patient was off any antihypertensive medication. Can Cutter followed. Echocardiogram revealed preserved ejection fraction. Prolonged QT interval was likely due to electrolyte abnormalities secondary to end-stage renal disease. Patient had hemodialysis as per global sales executive with close monitoring of volume status , renal parameters and electrolytes. Electrolytes were corrected as needed. Vascular surgeon seen and evaluated the patient. Per surgeon , patient will require selective right leg angiography to assess for further revascularization prior to any invasive podiatry intervention. Patient will need surgical revision of his right stump after angiogram. Supplemental oxygen provided as needed to keep pulse oximetry above 92%. Pulmonary toilet was on board as needed. DVT prophylaxis provided. Patient counseled on smoking cessation. Patient started on Nicotine patch. The patient was working with physical and occupational therapists. Fall precautions were maintained. Bowel regimen instituted. Psychiatrist closely followed . Patient was provided with reality orientation and supportive therapy. Patient started on Lexapro and Klonopin. After placement was secured, patient subsequently transferred to [facility] for right leg angiogram. FINAL DIAGNOSES: Sepsis Acute osteomyelitis right foot Ulcer of transmetatarsal amputation stump right lower extremity Infection of transmetatarsal amputation stump right lower extremity Diabetes mellitus End-stage renal disease, on hemodialysis Acute toxic metabolic encephalopathy ( secondary to combination of infectious process and renal failure with electrolyte imbalances) Calcified multilevel arterial occlusive disease with prior history of revascularization Hypotension with history of hypertension Anemia of chronic kidney disease Renal osteodystrophy QT prolongation ( likely due to electrolyte abnormality, secondary to end- stage renal disease) Daily marijuana use Nicotine dependency with withdrawal Major depressive disorder DISCHARGE MEDICATIONS: See Medication Reconciliation list. DISCHARGE INSTRUCTIONS: Patient was transferred to [facility] [place] for further management. I have been assigned to dictate discharge summary for this account. I was not involved in the patient's management. Yamilka Broussard NP Dec 13, 2017 13:53
[2017-12-13] MEDS ORDERED: ceFAZolin 2gm/50ml Premix 50 ML IV SCH (18:00)
[2017-12-13] MEDS ORDERED: ceFAZolin 2gm/50ml Premix 50 ML IVPB SCH (20:00)
[2017-12-13] MEDS ORDERED: Ertapenem 0.5 GM in NS 55 ML IVPB SCH (21:00)
[2017-12-17] MEDS ORDERED: D5W IVPB SCH (20:00)
[2017-12-17] MEDS ORDERED: CEFAZOLIN SOD IVPB SCH (20:00)
== END 2017-12-12 14:20 | disposition short-term general hospital (02) | DRG 871 ==
LOC: 2E 12:39 → 4E 12-05 17:41
PROC: 5A1D70Z Performance of Urinary Filtration, Intermittent, Less than 6 Hours Per Day (ICD-10-PCS; principal; 2017-12-06)
DX: A41.9 Sepsis, unspecified organism (principal); N18.6 End stage renal disease; G92 Toxic encephalopathy; M86.171 Other acute osteomyelitis, right ankle and foot; T87.43 Infection of amputation stump, right lower extremity; I12.0 Hypertensive chronic kidney disease with stage 5 chronic kidney disease or end stage renal disease; F17.203 Nicotine dependence unspecified, with withdrawal; Y83.5 Amputation of limb(s) as the cause of abnormal reaction of the patient, or of later complication, without mention of misadventure at the time of the procedure; E11.65 Type 2 diabetes mellitus with hyperglycemia; Z79.4 Long term (current) use of insulin; E11.22 Type 2 diabetes mellitus with diabetic chronic kidney disease; E11.21 Type 2 diabetes mellitus with diabetic nephropathy; E11.42 Type 2 diabetes mellitus with diabetic polyneuropathy; E11.621 Type 2 diabetes mellitus with foot ulcer; L97.519 Non-pressure chronic ulcer of other part of right foot with unspecified severity; I73.9 Peripheral vascular disease, unspecified; Z86.73 Personal history of transient ischemic attack (TIA), and cerebral infarction without residual deficits; B96.4 Proteus (mirabilis) (morganii) as the cause of diseases classified elsewhere; B95.61 Methicillin susceptible Staphylococcus aureus infection as the cause of diseases classified elsewhere; B96.89 Other specified bacterial agents as the cause of diseases classified elsewhere; N25.0 Renal osteodystrophy; Z99.2 Dependence on renal dialysis; I70.90 Unspecified atherosclerosis; D63.1 Anemia in chronic kidney disease; F12.90 Cannabis use, unspecified, uncomplicated; F32.9 Major depressive disorder, single episode, unspecified; I45.81 Long QT syndrome; Z85.528 Personal history of other malignant neoplasm of kidney; Z90.5 Acquired absence of kidney; I44.4 Left anterior fascicular block
CPT/HCPCS: 36415; 71045; 80048; 80053; 80202; 82962; 83735; 84100; 85025; 85651; 86140; 87040; 87070; 87081; 87181; 87205; 93005; 93306; 93880; 93925; 94664; J1815; J2405; S5561

== ENCOUNTER 2018-01-10 13:36 | Outpatient (RCR) | payer MEDICARE, MEDICAID ==
[~2018-01-10 13:36] MED LIST: ASPIRIN81 MG ORAL; DIOVAN160 MG ORAL; HYDRALAZINE HCL50 MG ORAL; ISOSORBIDE MONO30 M1 PO; LEXAPRO10 MG ORAL; LIPITOR80 MG ORAL; METOPROLOL SUC100 MG ORAL; METOPROLOL TAR100 MG ORAL; NEOMYC-POLYM-DEX5 ML OP; NORVASC10 MG ORAL; NORVASC5 MG ORAL; PRAVASTATIN SOD20 M1 ORAL; PROMETH-CODEIN 65 ML PO; RENVELA0.8 GM ORAL; SENSIPAR30 MG ORAL; VELPHORO500 MG PO
== END 2018-01-11 | disposition home or self-care (01) ==
LOC: WCC 13:36
DX: M86.171 Other acute osteomyelitis, right ankle and foot (principal); L03.115 Cellulitis of right lower limb; Z89.421 Acquired absence of other right toe(s); E11.621 Type 2 diabetes mellitus with foot ulcer; N18.6 End stage renal disease; Z91.19 Patient's noncompliance with other medical treatment and regimen; E11.65 Type 2 diabetes mellitus with hyperglycemia; E11.22 Type 2 diabetes mellitus with diabetic chronic kidney disease; I12.0 Hypertensive chronic kidney disease with stage 5 chronic kidney disease or end stage renal disease; Z90.5 Acquired absence of kidney
CPT/HCPCS: G0463

== ENCOUNTER 2018-01-10 15:54 | Inpatient (IN) | payer MEDICARE, MEDICAID ==
[~2018-01-10] VITALS: Ht 182.9 cm; Wt 87.8 kg
[2018-01-10 16:08] VITALS: BP 178/100
--- NOTE | 2018-01-10 16:42 | Diagnostic Imaging Report ---
Indication: Foot Pain Comparison: None Findings: 3 views of the right foot were obtained. Transmetatarsal dictation noted. Surgical skin imle noted. Vascular calcifications noted. IMPRESSION: Postop confirmation
[2018-01-10 16:50] LABS: BASOPHILS % (AUTO) 0.9 % (0.0-2.0); EOSINOPHILS % (AUTO) 1.3 % (0.0-3.0); HEMATOCRIT 32.5 % (42.0-52.0); HEMOGLOBIN 10.9 G/DL (14.2-18.0); LYMPHOCYTES % (AUTO) 18.4 % (20.0-45.0); MEAN CORPUSCULAR VOLUME 99 FL (80-99); MONOCYTES % (AUTO) 10.1 % (1.0-10.0); NEUTROPHILS % (AUTO) 69.3 % (45.0-75.0); PLATELET COUNT 344 K/UL (150-450); RED CELL DISTRIBUTION WIDTH 15.2 % (11.6-14.8); WHITE BLOOD COUNT 6.4 K/UL (4.8-10.8)
[2018-01-10 17:18] LABS: ANION GAP 6 mmol/L (5-15); BLOOD UREA NITROGEN 23 mg/dL (7-18); CALCIUM 8.8 MG/DL (8.5-10.1); CARBON DIOXIDE 37 MMOL/L (21-32); CHLORIDE 95 MMOL/L (98-107); CREATININE 6.5 MG/DL (0.55-1.30); POTASSIUM 4.1 MMOL/L (3.5-5.1); SODIUM 138 MMOL/L (136-145)
[2018-01-10 17:23] LABS: ALANINE AMINOTRANSFERASE 9 U/L (12-78); ALBUMIN 2.8 G/DL (3.4-5.0); ALBUMIN/GLOBULIN RATIO 0.5 (1.0-2.7); ALKALINE PHOSPHATASE 175 U/L (46-116); ASPARTATE AMINO TRANSFERASE 15 U/L (15-37); BILIRUBIN,TOTAL 0.2 MG/DL (0.2-1.0)
--- NOTE | 2018-01-10 17:37 | Emergency Room Report ---
History of Present Illness General Chief Complaint: General Complaint Source: Patient Present Illness HPI Patient is a 52-year-old male who presented after increased discomfort to right foot. The patient had a recent metatarsal amputation. Patient had end-stage renal disease and was dialyzed earlier in the day. Patient had reportedly had uncontrolled blood sugar. He is normally dialyzed Tuesday and Tuesday.The patient had wound cultures with podiatry today. The patient denies any chest pain or shortness of breath. Allergies: Coded Allergies: NO KNOWN ALLERGIES (Verified Allergy, Unknown, 12/04/17) Patient History Past Medical History: see triage record Reviewed Nursing Documentation: PMH: Agreed; PSxH: Agreed Nursing Documentation-PMH Past Medical History: No History, Except For Hx Cardiac Problems: No Hx Hypertension: Yes Hx Diabetes: Yes Hx Cancer: No Hx Gastrointestinal Problems: No Hx Dialysis: Yes Hx Neurological Problems: No Review of Systems All Other Systems: negative except mentioned in HPI Physical Exam Vital Signs Date Time Temp Pulse Resp B/P (MAP) Pulse Ox O2 Delivery O2 Flow Rate FiO2 01/10/18 16:03 98.1 97 17 172/98 96 Room Air Sp02 EP Interpretation: reviewed, normal General Appearance: normal inspection, well appearing, no apparent distress, alert, GCS 15 Head: atraumatic ENT: normal ENT inspection, hearing grossly normal, normal voice Neck: normal inspection, full range of motion, supple, no bony tend Respiratory: normal inspection, lungs clear, normal breath sounds, no respiratory distress, no retraction, no wheezing Cardiovascular #1: regular rate, rhythm, no edema Gastrointestinal: normal inspection, normal bowel sounds, non tender, soft, no guarding, no hernia Genitourinary: no CVA tenderness Musculoskeletal: normal inspection, back normal, normal range of motion Neurologic: normal inspection, alert, responsive, speech normal Psychiatric: normal inspection, judgement/insight normal, mood/affect normal Skin: other - surgical wound open with slight drainage Medical Decision Making Diagnostic Impression: Primary Impression: Diabetes mellitus Additional Impressions: ESRD (end stage renal disease) 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 ER Course The patient was sent for uncontrolled diabetes. Differential diagnosis included was not limited to osteomyelitis, wound infection, DVT among others. Because of complexity of patient's case laboratory testing and imaging studies were ordered. The laboratory testing showed increased blood sugar. The patient was not in diabetic ketoacidosis. Patient was noted to have some evidence of osteomyelitis in the past as well as a wound infection to his right foot per machine washer. Dr. Lane was contacted for podiatry consult.Dr. Shahram Duong was contacted for inpatient management due to primary care physician Labs Test 01/10/18 16:30 White Blood Count 6.4 K/UL (4.8-10.8) Red Blood Count 3.30 M/UL (4.70-6.10) Hemoglobin 10.9 G/DL (14.2-18.0) Hematocrit 32.5 % (42.0-52.0) Mean Corpuscular Volume 99 FL (80-99) Mean Corpuscular Hemoglobin 32.9 PG (27.0-31.0) Mean Corpuscular Hemoglobin Concent 33.4 G/DL (32.0-36.0) Red Cell Distribution Width 15.2 % (11.6-14.8) Platelet Count 344 K/UL (150-450) Mean Platelet Volume 6.3 FL (6.5-10.1) Neutrophils (%) (Auto) 69.3 % (45.0-75.0) Lymphocytes (%) (Auto) 18.4 % (20.0-45.0) Monocytes (%) (Auto) 10.1 % (1.0-10.0) Eosinophils (%) (Auto) 1.3 % (0.0-3.0) Basophils (%) (Auto) 0.9 % (0.0-2.0) Prothrombin Time 10.4 SEC (9.30-11.50) Prothromb Time International Ratio 1.0 (0.9-1.1) Activated Partial Thromboplast Time 33 SEC (23-33) Sodium Level 138 MMOL/L (136-145) Potassium Level 4.1 MMOL/L (3.5-5.1) Chloride Level 95 MMOL/L (98-107) Carbon Dioxide Level 37 MMOL/L (21-32) Anion Gap 6 mmol/L (5-15) Blood Urea Nitrogen 23 mg/dL (7-18) Creatinine 6.5 MG/DL (0.55-1.30) Estimat Glomerular Filtration Rate 11.0 mL/min (>60) Glucose Level 343 MG/DL (74-106) Calcium Level 8.8 MG/DL (8.5-10.1) Total Bilirubin 0.2 MG/DL (0.2-1.0) Aspartate Amino Transf (AST/SGOT) 15 U/L (15-37) Alanine Aminotransferase (ALT/SGPT) 9 U/L (12-78) Alkaline Phosphatase 175 U/L (46-116) Total Protein 8.5 G/DL (6.4-8.2) Albumin 2.8 G/DL (3.4-5.0) Globulin 5.7 g/dL Albumin/Globulin Ratio 0.5 (1.0-2.7) Last Vital Signs Date Time Temp Pulse Resp B/P (MAP) Pulse Ox O2 Delivery O2 Flow Rate FiO2 01/10/18 16:08 98.1 93 17 178/100 100 Room Air Status: unchanged Disposition: ADMITTED INPATIENT Referrals: Shahram Duong MD (PCP) Minh Fitzgerald MD Jan 10, 2018 17:37
[2018-01-10] MEDS ORDERED: Nitroglycerin Subl 0.4mg tab SL PRN (18:15)
[2018-01-10] MEDS ORDERED: Morphine Sulfate 2mg/ml Inj IVP PRN (18:15)
[2018-01-10] MEDS ORDERED: Miralax 17gm pkt ORAL PRN (18:15)
[2018-01-10] MEDS ORDERED: Albuterol/Ipratropium 3ml neb HHN PRN (18:15)
[2018-01-10] MEDS ORDERED: Cefepime HCl 2 GM in D5W 110 ML IV SCH (21:00)
[2018-01-10] MEDS ORDERED: Cefepime 1gm in D5W 55ml IVPB SCH (21:00)
[2018-01-10 21:30] VITALS: BP 166/93
[2018-01-10] MEDS: NovoLOG Insulin Flexpen SUBQ SCH (21:30)
[2018-01-10] MEDS: HydrALAZINE 50mg tab ORAL SCH (21:32)
[2018-01-10] MEDS: Heparin 5000 units/ml inj SUBQ SCH (21:41)
[2018-01-10] MEDS ORDERED: Vancomycin 1 GM in D5W 275 ML IVPB SCH (22:00)
[2018-01-11] VITALS: BP 126/65
[2018-01-11 04:00] VITALS: BP 154/80
[2018-01-11] MEDS: HydrALAZINE 50mg tab ORAL SCH ×3 (05:52→20:49)
[2018-01-11] MEDS: NovoLOG Insulin Flexpen SUBQ SCH ×5 (06:21→20:47)
[2018-01-11 07:28] LABS: ALANINE AMINOTRANSFERASE 8 U/L (12-78); ALBUMIN 2.6 G/DL (3.4-5.0); ALBUMIN/GLOBULIN RATIO 0.5 (1.0-2.7); ALKALINE PHOSPHATASE 139 U/L (46-116); ANION GAP 8 mmol/L (5-15); ASPARTATE AMINO TRANSFERASE 12 U/L (15-37); BILIRUBIN,TOTAL 0.4 MG/DL (0.2-1.0); BLOOD UREA NITROGEN 28 mg/dL (7-18); CALCIUM 8.6 MG/DL (8.5-10.1); CARBON DIOXIDE 34 MMOL/L (21-32); CHLORIDE 97 MMOL/L (98-107); CREATININE 7.9 MG/DL (0.55-1.30); POTASSIUM 4.2 MMOL/L (3.5-5.1); SODIUM 139 MMOL/L (136-145)
[2018-01-11 07:29] LABS: BASOPHILS % (AUTO) 0.8 % (0.0-2.0); EOSINOPHILS % (AUTO) 1.6 % (0.0-3.0); HEMATOCRIT 31.2 % (42.0-52.0); HEMOGLOBIN 9.9 G/DL (14.2-18.0); LYMPHOCYTES % (AUTO) 22.4 % (20.0-45.0); MEAN CORPUSCULAR VOLUME 99 FL (80-99); MONOCYTES % (AUTO) 8.4 % (1.0-10.0); NEUTROPHILS % (AUTO) 66.8 % (45.0-75.0); PLATELET COUNT 343 K/UL (150-450); RED BLOOD COUNT 3.16 M/UL (4.70-6.10); RED CELL DISTRIBUTION WIDTH 15.3 % (11.6-14.8); WHITE BLOOD COUNT 6.8 K/UL (4.8-10.8)
[2018-01-11 08:00] VITALS: BP 129/75
[2018-01-11] MEDS: Metoprolol Succinate XL 100mg tab ORAL SCH (08:52)
[2018-01-11] MEDS: Renvela 800mg Pkt ORAL SCH ×3 (08:53→17:34)
[2018-01-11] MEDS: Aspirin Baby 81mg ORAL SCH (08:53)
[2018-01-11] MEDS: Heparin 5000 units/ml inj SUBQ SCH ×2 (08:54→20:48)
--- NOTE | 2018-01-11 11:06 | Consultation ---
History of Present Illness General Date patient seen: Jan 11, 2018 Chief Complaint: General Complaint Present Illness HPI 52 year old male with hx of ESRF, Right foot partial amputation, DM, was sent to ER by his Anesthesia Tech for worsening of diabetic foot ulcer. His diabetes was found to be out of control. He is admitted for uncontrolled DM, sepsis and worsening Diabetic foot ulcer. Allergies: Coded Allergies: NO KNOWN ALLERGIES (Verified Allergy, Unknown, 12/04/17) Medication History Scheduled Amlodipine Besylate (Norvasc), 5 MG ORAL DAILY, (Reported) Amlodipine Besylate (Norvasc), 10 MG ORAL DAILY, (Reported) Aspirin* (Aspirin*), 81 MG ORAL DAILY, (Reported) Atorvastatin (Lipitor), 10 MG ORAL BEDTIME, (Reported) Escitalopram Oxalate* (Lexapro*), 10 MG ORAL DAILY, (Reported) Hydralazine Hcl* (Hydralazine Hcl*), 50 MG ORAL EVERY 8 HOURS, (Reported) Metoprolol Succinate* (Metoprolol Succinate*), 200 MG ORAL DAILY, (Reported) Metoprolol Tartrate* (Metoprolol Tartrate*), 100 MG ORAL EVERY 12 HOURS, ( Reported) Pravastatin Sod* (Pravastatin Sod*), 40 MG ORAL BEDTIME, (Reported) Sevelamer Carbonate* (Renvela*), 800 MG ORAL THREE TIMES A DAY, (Reported) Valsartan (Diovan), 160 MG ORAL DAILY, (Reported) Miscellaneous Medications Isosorbide Mononitrate (Isosorbide Mononitrate Er), 30 MG PO, (Reported) Robinson/Polymyx B Sulf/Dexameth (Lkmfae-Hrsct-Uytivpjn Eye Drop), 3.5 ML OP, ( Reported) Promethazine HCl/Codeine (Prometh-Codein 6.25-10 mg/5 ml), 5 ML PO, (Reported) Sucroferric Oxyhydroxide (Velphoro), 500 MG PO, (Reported) Sucroferric Oxyhydroxide (Velphoro), 500 MG PO, (Reported) Patient History Healthcare decision maker Resuscitation status Advanced Directive on File Past Medical/Surgical History Past Medical/Surgical History: (1) ESRD (end stage renal disease) (2) Diabetes mellitus (3) HTN (hypertension) Review of Systems All Other Systems: negative except mentioned in HPI Physical Exam General Appearance: WD/WN Lines, tubes and drains: peripheral HEENT: normocephalic, atraumatic Neck: non-tender, normal alignment Breasts: no masses Cardiovascular/Chest: normal peripheral pulses, normal rate Abdomen: normal bowel sounds, non tender Genitourinary/Rectal: normal genital exam Extremities: normal range of motion Skin Exam: normal pigmentation 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 Lymphatic: anterior cervical Last 24 Hour Vital Signs Date Time Temp Pulse Resp B/P (MAP) Pulse Ox O2 Delivery O2 Flow Rate FiO2 01/11/18 09:00 Room Air 01/11/18 08:53 89 129/75 01/11/18 08:52 89 129/75 01/11/18 08:00 98.2 89 19 129/75 (93) 96 01/11/18 07:40 92 16 Room Air 21 01/11/18 05:52 154/80 01/11/18 04:00 98.4 91 19 154/80 (104) 96 01/11/18 00:00 98.5 95 19 126/65 (85) 98 01/10/18 22:40 Room Air 01/10/18 21:32 166/93 01/10/18 21:30 98.6 86 20 166/93 (117) 100 01/10/18 21:20 98.1 103 17 156/87 100 Room Air 103 01/10/18 16:08 98.1 93 17 178/100 100 Room Air 01/10/18 16:08 93 17 Room Air 01/10/18 16:03 98.1 97 17 172/98 96 Room Air Intake and Output 01/10/18 01/11/18 19:00 07:00 Intake Total 250 ml 828.3 ml Output Total 0 ml 0 ml Balance 250 ml 828.3 ml Intake Oral 250 ml 590 ml IV Total 238.3 ml Output Urine Total 0 ml 0 ml # Voids 1 # Bowel Movements 1 Laboratory Tests Test 01/10/18 16:30 01/11/18 06:05 White Blood Count 6.4 K/UL (4.8-10.8) 6.8 K/UL (4.8-10.8) Red Blood Count 3.30 M/UL (4.70-6.10) L 3.16 M/UL (4.70-6.10) L Hemoglobin 10.9 G/DL (14.2-18.0) L 9.9 G/DL (14.2-18.0) L Hematocrit 32.5 % (42.0-52.0) L 31.2 % (42.0-52.0) L Mean Corpuscular Volume 99 FL (80-99) 99 FL (80-99) Mean Corpuscular Hemoglobin 32.9 PG (27.0-31.0) H 31.4 PG (27.0-31.0) H Mean Corpuscular Hemoglobin Concent 33.4 G/DL (32.0-36.0) 31.9 G/DL (32.0-36.0) L Red Cell Distribution Width 15.2 % (11.6-14.8) H 15.3 % (11.6-14.8) H Platelet Count 344 K/UL (150-450) 343 K/UL (150-450) Mean Platelet Volume 6.3 FL (6.5-10.1) L 6.3 FL (6.5-10.1) L Neutrophils (%) (Auto) 69.3 % (45.0-75.0) 66.8 % (45.0-75.0) Lymphocytes (%) (Auto) 18.4 % (20.0-45.0) L 22.4 % (20.0-45.0) Monocytes (%) (Auto) 10.1 % (1.0-10.0) H 8.4 % (1.0-10.0) Eosinophils (%) (Auto) 1.3 % (0.0-3.0) 1.6 % (0.0-3.0) Basophils (%) (Auto) 0.9 % (0.0-2.0) 0.8 % (0.0-2.0) Prothrombin Time 10.4 SEC (9.30-11.50) Prothromb Time International Ratio 1.0 (0.9-1.1) Activated Partial Thromboplast Time 33 SEC (23-33) Sodium Level 138 MMOL/L (136-145) 139 MMOL/L (136-145) Potassium Level 4.1 MMOL/L (3.5-5.1) 4.2 MMOL/L (3.5-5.1) Chloride Level 95 MMOL/L (98-107) L 97 MMOL/L (98-107) L Carbon Dioxide Level 37 MMOL/L (21-32) H 34 MMOL/L (21-32) H Anion Gap 6 mmol/L (5-15) 8 mmol/L (5-15) Blood Urea Nitrogen 23 mg/dL (7-18) H 28 mg/dL (7-18) H Creatinine 6.5 MG/DL (0.55-1.30) H 7.9 MG/DL (0.55-1.30) H Estimat Glomerular Filtration Rate 11.0 mL/min (>60) 8.8 mL/min (>60) Glucose Level 343 MG/DL (74-106) H 123 MG/DL (74-106) #H Calcium Level 8.8 MG/DL (8.5-10.1) 8.6 MG/DL (8.5-10.1) Total Bilirubin 0.2 MG/DL (0.2-1.0) 0.4 MG/DL (0.2-1.0) Aspartate Amino Transf (AST/SGOT) 15 U/L (15-37) 12 U/L (15-37) L Alanine Aminotransferase (ALT/SGPT) 9 U/L (12-78) L 8 U/L (12-78) L Alkaline Phosphatase 175 U/L (46-116) H 139 U/L (46-116) H Total Protein 8.5 G/DL (6.4-8.2) H 7.8 G/DL (6.4-8.2) Albumin 2.8 G/DL (3.4-5.0) L 2.6 G/DL (3.4-5.0) L Globulin 5.7 g/dL 5.2 g/dL Albumin/Globulin Ratio 0.5 (1.0-2.7) L 0.5 (1.0-2.7) L Height (Feet): 6 Height (Inches): 0.00 Weight (Pounds): 204 Medications Current Medications Medications (Trade) Dose Ordered Sig/Felix Route PRN Reason Start Time Stop Time Status Last Admin Dose Admin Acetaminophen (Tylenol) 650 mg Q4H PRN ORAL fever 01/10/18 18:15 02/09/18 18:14 Albuterol/ Ipratropium (Albuterol/ Ipratropium) 3 ml Q4H PRN HHN Shortness of Breath 01/10/18 18:15 01/15/18 18:14 Amlodipine Besylate (Norvasc) 5 mg DAILY ORAL 01/11/18 09:00 02/10/18 08:59 01/11/18 08:53 Aspirin (ASA) 81 mg DAILY ORAL 01/11/18 09:00 02/10/18 08:59 01/11/18 08:53 Atorvastatin Calcium (Lipitor) 10 mg BEDTIME ORAL 01/10/18 21:00 02/09/18 20:59 01/10/18 21:32 Cefepime HCl 500 mg/Dextrose 55 ml @ 110 mls/hr Q24H IVPB 01/11/18 21:00 01/18/18 20:59 Dextrose (Dextrose 50%) 25 ml Q30M PRN IV Hypoglycemia 01/10/18 18:15 02/09/18 18:14 Dextrose (Dextrose 50%) 50 ml Q30M PRN IV Hypoglycemia 01/10/18 18:30 02/09/18 18:29 Escitalopram Oxalate (Lexapro) 10 mg DAILY ORAL 01/11/18 09:00 02/10/18 08:59 01/11/18 08:53 Heparin Sodium (Porcine) (Heparin 5000 units/ml) 5,000 units EVERY 12 HOURS SUBQ 01/10/18 21:00 02/09/18 20:59 01/11/18 08:54 Hydralazine HCl (Apresoline) 50 mg EVERY 8 HOURS ORAL 01/10/18 22:00 02/09/18 21:59 01/11/18 05:52 Insulin Aspart (NovoLOG) BEFORE MEALS AND HS SUBQ 01/10/18 21:00 02/09/18 20:59 01/10/18 21:30 Metoprolol Succinate (Toprol XL) 200 mg DAILY ORAL 01/11/18 09:00 02/10/18 08:59 01/11/18 08:52 Morphine Sulfate (Morphine Sulfate) 2 mg Q4H PRN IVP Moderate Pain (Pain Scale 4-6) 01/10/18 18:15 01/17/18 18:14 Nitroglycerin (Ntg) 0.4 mg Q5M PRN SL Prn Chest Pain 01/10/18 18:15 02/09/18 18:14 Ondansetron HCl (Zofran) 4 mg Q6H PRN IVP Nausea & Vomiting 01/10/18 18:15 02/09/18 18:14 Polyethylene Glycol (Miralax) 17 gm DAILYPRN PRN ORAL Constipation 01/10/18 18:15 02/09/18 18:14 Pravastatin Sodium (Pravachol) 40 mg BEDTIME ORAL 01/10/18 21:00 02/09/18 20:59 01/10/18 21:32 Sevelamer Carbonate (Renvela) 800 mg THREE TIMES A DAY ORAL 01/11/18 09:00 02/10/18 08:59 01/11/18 08:53 Temazepam (Restoril) 15 mg HSPRN PRN ORAL Insomnia 01/10/18 18:15 01/17/18 18:14 Vancomycin HCl (Vanco rx to dose) 1 ea DAILY PRN MISC per rx protocol 01/10/18 19:30 02/09/18 19:29 Assessment/Plan Problem List: (1) Sepsis ICD Codes: A41.9 - Sepsis, unspecified organism SNOMED: 17401762 (2) 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 ICD Codes: T87.43 - Infection of amputation stump, right lower extremity SNOMED: 592062574, 419494100 (3) ESRD (end stage renal disease) ICD Codes: N18.6 - End stage renal disease SNOMED: 31248497 (4) HTN (hypertension) ICD Codes: I10 - Essential (primary) hypertension SNOMED: 83506526 (5) Diabetes mellitus ICD Codes: E11.9 - Type 2 diabetes mellitus without complications SNOMED: 87231743 Assessment/Plan sliding scale iv abx Podiatry Renal f/u, Dr. Orellana called DR Ceja saw the pt previously. dvt prophylaxis symptoamtic treatment. Jorge Anaya MD Jan 11, 2018 11:05
[2018-01-11 12:00] VITALS: BP 144/83
--- NOTE | 2018-01-11 14:25 | Infectious Diseases Prog Note ---
Assessment/Plan Problems: (1) Acute osteomyelitis of metatarsal bone of right foot Assessment & Plan: previously grew MSSA , providenciae rettgeri and proteus mirabilis, underwent revision of his right stump wound after revascularization at [facility] . unclear whether he was getting any antibiotics after discharge from [facility]. will order MRI of the right foot for further eval, and send blood culture . will send wound culture too. appreciate roller man input . (2) Ulcer of amputation stump of foot Assessment & Plan: with purulent discharge , rule out under lying osteomyelitis , continue wide spectrum antibiotics pending MRI image of the right foot (3) Sepsis Assessment & Plan: due to the above, will send blood culture and start wide spectrum antibiotics (4) Diabetes mellitus Assessment & Plan: recommend tight glycemic control to keep blood glucose between 100-140 (5) ESRD (end stage renal disease) Assessment & Plan: on HD renal service is following Subjective Allergies: Coded Allergies: NO KNOWN ALLERGIES (Verified Allergy, Unknown, 12/04/17) Objective Vital Signs Last 24 Hour Vital Signs Date Time Temp Pulse Resp B/P (MAP) Pulse Ox O2 Delivery O2 Flow Rate FiO2 01/11/18 14:02 144/83 01/11/18 12:00 98.2 81 19 144/83 (103) 96 01/11/18 09:00 Room Air 01/11/18 08:53 89 129/75 01/11/18 08:52 89 129/75 01/11/18 08:00 98.2 89 19 129/75 (93) 96 01/11/18 07:40 92 16 Room Air 21 01/11/18 05:52 154/80 01/11/18 04:00 98.4 91 19 154/80 (104) 96 01/11/18 00:00 98.5 95 19 126/65 (85) 98 01/10/18 22:40 Room Air 01/10/18 21:32 166/93 01/10/18 21:30 98.6 86 20 166/93 (117) 100 01/10/18 21:20 98.1 103 17 156/87 100 Room Air 103 01/10/18 16:08 98.1 93 17 178/100 100 Room Air 01/10/18 16:08 93 17 Room Air 01/10/18 16:03 98.1 97 17 172/98 96 Room Air Height (Feet): 6 Height (Inches): 0.00 Weight (Pounds): 204 Laboratory Tests Test 01/10/18 16:30 01/11/18 06:05 White Blood Count 6.4 K/UL (4.8-10.8) 6.8 K/UL (4.8-10.8) Red Blood Count 3.30 M/UL (4.70-6.10) L 3.16 M/UL (4.70-6.10) L Hemoglobin 10.9 G/DL (14.2-18.0) L 9.9 G/DL (14.2-18.0) L Hematocrit 32.5 % (42.0-52.0) L 31.2 % (42.0-52.0) L Mean Corpuscular Volume 99 FL (80-99) 99 FL (80-99) Mean Corpuscular Hemoglobin 32.9 PG (27.0-31.0) H 31.4 PG (27.0-31.0) H Mean Corpuscular Hemoglobin Concent 33.4 G/DL (32.0-36.0) 31.9 G/DL (32.0-36.0) L Red Cell Distribution Width 15.2 % (11.6-14.8) H 15.3 % (11.6-14.8) H Platelet Count 344 K/UL (150-450) 343 K/UL (150-450) Mean Platelet Volume 6.3 FL (6.5-10.1) L 6.3 FL (6.5-10.1) L Neutrophils (%) (Auto) 69.3 % (45.0-75.0) 66.8 % (45.0-75.0) Lymphocytes (%) (Auto) 18.4 % (20.0-45.0) L 22.4 % (20.0-45.0) Monocytes (%) (Auto) 10.1 % (1.0-10.0) H 8.4 % (1.0-10.0) Eosinophils (%) (Auto) 1.3 % (0.0-3.0) 1.6 % (0.0-3.0) Basophils (%) (Auto) 0.9 % (0.0-2.0) 0.8 % (0.0-2.0) Prothrombin Time 10.4 SEC (9.30-11.50) Prothromb Time International Ratio 1.0 (0.9-1.1) Activated Partial Thromboplast Time 33 SEC (23-33) Sodium Level 138 MMOL/L (136-145) 139 MMOL/L (136-145) Potassium Level 4.1 MMOL/L (3.5-5.1) 4.2 MMOL/L (3.5-5.1) Chloride Level 95 MMOL/L (98-107) L 97 MMOL/L (98-107) L Carbon Dioxide Level 37 MMOL/L (21-32) H 34 MMOL/L (21-32) H Anion Gap 6 mmol/L (5-15) 8 mmol/L (5-15) Blood Urea Nitrogen 23 mg/dL (7-18) H 28 mg/dL (7-18) H Creatinine 6.5 MG/DL (0.55-1.30) H 7.9 MG/DL (0.55-1.30) H Estimat Glomerular Filtration Rate 11.0 mL/min (>60) 8.8 mL/min (>60) Glucose Level 343 MG/DL (74-106) H 123 MG/DL (74-106) #H Calcium Level 8.8 MG/DL (8.5-10.1) 8.6 MG/DL (8.5-10.1) Total Bilirubin 0.2 MG/DL (0.2-1.0) 0.4 MG/DL (0.2-1.0) Aspartate Amino Transf (AST/SGOT) 15 U/L (15-37) 12 U/L (15-37) L Alanine Aminotransferase (ALT/SGPT) 9 U/L (12-78) L 8 U/L (12-78) L Alkaline Phosphatase 175 U/L (46-116) H 139 U/L (46-116) H Total Protein 8.5 G/DL (6.4-8.2) H 7.8 G/DL (6.4-8.2) Albumin 2.8 G/DL (3.4-5.0) L 2.6 G/DL (3.4-5.0) L Globulin 5.7 g/dL 5.2 g/dL Albumin/Globulin Ratio 0.5 (1.0-2.7) L 0.5 (1.0-2.7) L Current Medications Medications (Trade) Dose Ordered Sig/Felix Route PRN Reason Start Time Stop Time Status Last Admin Dose Admin Acetaminophen (Tylenol) 650 mg Q4H PRN ORAL fever 01/10/18 18:15 02/09/18 18:14 Albuterol/ Ipratropium (Albuterol/ Ipratropium) 3 ml Q4H PRN HHN Shortness of Breath 01/10/18 18:15 01/15/18 18:14 Amlodipine Besylate (Norvasc) 5 mg DAILY ORAL 01/11/18 09:00 02/10/18 08:59 01/11/18 08:53 Aspirin (ASA) 81 mg DAILY ORAL 01/11/18 09:00 02/10/18 08:59 01/11/18 08:53 Atorvastatin Calcium (Lipitor) 10 mg BEDTIME ORAL 01/10/18 21:00 02/09/18 20:59 01/10/18 21:32 Cefepime HCl 500 mg/Dextrose 55 ml @ 110 mls/hr Q24H IVPB 01/11/18 21:00 01/18/18 20:59 Dextrose (Dextrose 50%) 25 ml Q30M PRN IV Hypoglycemia 01/10/18 18:15 02/09/18 18:14 Dextrose (Dextrose 50%) 50 ml Q30M PRN IV Hypoglycemia 01/10/18 18:30 02/09/18 18:29 Escitalopram Oxalate (Lexapro) 10 mg DAILY ORAL 01/11/18 09:00 02/10/18 08:59 01/11/18 08:53 Heparin Sodium (Porcine) (Heparin 5000 units/ml) 5,000 units EVERY 12 HOURS SUBQ 01/10/18 21:00 02/09/18 20:59 01/11/18 08:54 Hydralazine HCl (Apresoline) 50 mg EVERY 8 HOURS ORAL 01/10/18 22:00 02/09/18 21:59 01/11/18 14:02 Insulin Aspart (NovoLOG) BEFORE MEALS AND HS SUBQ 01/10/18 21:00 02/09/18 20:59 01/11/18 12:28 Metoprolol Succinate (Toprol XL) 200 mg DAILY ORAL 01/11/18 09:00 02/10/18 08:59 01/11/18 08:52 Morphine Sulfate (Morphine Sulfate) 2 mg Q4H PRN IVP Moderate Pain (Pain Scale 4-6) 01/10/18 18:15 01/17/18 18:14 Nitroglycerin (Ntg) 0.4 mg Q5M PRN SL Prn Chest Pain 01/10/18 18:15 02/09/18 18:14 Ondansetron HCl (Zofran) 4 mg Q6H PRN IVP Nausea & Vomiting 01/10/18 18:15 02/09/18 18:14 Polyethylene Glycol (Miralax) 17 gm DAILYPRN PRN ORAL Constipation 01/10/18 18:15 02/09/18 18:14 Pravastatin Sodium (Pravachol) 40 mg BEDTIME ORAL 01/10/18 21:00 02/09/18 20:59 01/10/18 21:32 Sevelamer Carbonate (Renvela) 800 mg THREE TIMES A DAY ORAL 01/11/18 09:00 02/10/18 08:59 01/11/18 14:02 Temazepam (Restoril) 15 mg HSPRN PRN ORAL Insomnia 01/10/18 18:15 01/17/18 18:14 Vancomycin HCl (Vanco rx to dose) 1 ea DAILY PRN MISC per rx protocol 01/10/18 19:30 02/09/18 19:29 Cira Ceja M.D. Jan 11, 2018 14:25
--- NOTE | 2018-01-11 15:31 | Diagnostic Imaging Report ---
APPROVED REPORT CPT Code: 30287 Present Symptoms Comments: BILATERAL LEGS PAIN. BILATERAL: Imaging reveals a patent deep venous system bilaterally. There is no evidence of thrombus within the femoral, popliteal or tibial segments. The greater saphenous veins are also within normal limits. Doppler indicates normal spontaneous flow within these segments.
[2018-01-11 16:00] VITALS: BP 140/83
--- NOTE | 2018-01-11 18:48 | History & Physical ---
History and Physical History & Physicial Dictated for Int Med-Dr Duong no. [id number]. Miles Lobo MD Jan 11, 2018 18:48
[2018-01-11 20:11] VITALS: BP 140/82
[2018-01-11] MEDS: Cefepime 500mg in D5W 55ml IVPB SCH (20:46)
--- NOTE | 2018-01-11 23:00 | Consultation ---
DATE OF CONSULTATION: 01/11/2018 REASON FOR CONSULTATION: Right foot osteomyelitis with open wound. Recommendation for antibiotics treatment. REQUESTING PHYSICIAN: Shahram Duong M.D. HISTORY OF PRESENT ILLNESS: The patient is a 52-year-old male with past medical history of end-stage renal disease, on hemodialysis, hypertension, and diabetes with complication, who is noncompliant presented at the beginning of this month with right foot stump open wound with infection and was found to have underlying osteomyelitis of the metatarsal bone. Wound culture grew Proteus mirabilis, Providencia rettgeri, and MSSA at that time and he was treated with ertapenem and cefazolin. The patient was transferred to [facility] for angiogram and revascularization, and he underwent revision of his right foot stump wound by a ethanol quality leader. The patient was discharged from [facility] with a plan to continue antibiotics for 6 weeks after his right foot stump wound revision with his hemodialysis, unclear whether the patient received any antibiotics after he was discharged from [facility] [place], and he was just started on antibiotics yesterday my his hemodialysis center. Today he was seen by his ethanol quality leader on the wound care clinic who noticed that his right foot stump wound was open and draining some purulent material, so he was sent to the emergency room for admission and further evaluation. The patient was started on vancomycin and cefepime by the admitting physician and infectious disease consultation was requested for antibiotics treatment and further management. As of note, the patient complained of mild pain in his right foot with some discharge after he was discharged from the hospital. No fever or chills. No significant swelling or edema in his right foot. REVIEW OF SYSTEMS: A 14-point system reviewed were all negative apart from the one mentioned above in H and P. PAST MEDICAL HISTORY: Significant for diabetes with complication, hypertension, and end-stage renal disease, on hemodialysis. PAST SURGICAL HISTORY: He had right lower extremity angiogram with angioplasty this month and revision of his right stump wound by ethanol quality leader. FAMILY HISTORY: Not contributory. SOCIAL HISTORY: The patient lives at home with family. No recent drugs, tobacco, or alcohol. ALLERGIES: No known drug allergy. MEDICATIONS: He is currently on vancomycin and cefepime. For the rest of his medications, please refer to [facility]. LABORATORIES: Showed white count of 6.8, hemoglobin of 9.9, platelet count of 343, BUN of 28, creatinine of 7.9, AST of 12, ALT of 8. Microbiology, previous right foot stump wound culture grew Proteus mirabilis, pansensitive Providencia rettgeri, resistant to ampicillin, cefazolin, and Zosyn. Staphylococcus aureus also grew out of the wound, methicillin-sensitive. IMAGING: Right foot x-ray showed postop confirmation. Venous Doppler showed patent veins in the right lower extremities. PHYSICAL EXAMINATION: VITAL SIGNS: Temperature 98.2, pulse 81, respirations 19, blood pressure 144/83, saturation 96% on room air. GENERAL: Middle-aged male, lying in bed, awake, alert, and oriented, not in acute distress. HEENT: Normocephalic and atraumatic. Pupils are reactive to light equally. Moist oral mucosa. No exudate. NECK: Supple. No lymphadenopathy. CARDIOVASCULAR: Regular rate and rhythm. No murmur or gallop. LUNGS: Clear bilaterally. Diminished breathing sounds at the bases. ABDOMEN: Soft, nontender, and nondistended. Normal bowel sounds. No hepatosplenomegaly or ascites. EXTREMITIES: No edema or cyanosis. Right foot stump wound open on the right lateral aspect with sinus tract and exposed bone at this point. Mildly inflamed wound borders with no significant drainage or foul smell. ASSESSMENT AND RECOMMENDATION: 1. Acute osteomyelitis of the metatarsal bone of the right foot, previously grew MSSA, Providencia rettgeri, and Proteus mirabilis, and he was treated with ertapenem and vancomycin after he had revision of his right foot wound. We will continue vancomycin and cefepime for now, empiric coverage, pending culture results of the right foot. We will order an MRI of the right foot to evaluate for possible osteomyelitis or deep abscess. The patient may need revision again or I and D as per the MRI result. Podiatry team is already following the patient. 2. Ulcer of amputation stump of the right foot with purulent discharge, rule out underlying osteomyelitis. We will continue wide-spectrum antibiotics pending MRI image of the right foot, and we will check his ESR . 3. Sepsis, due to the above. We will send blood culture and continue wide-spectrum antibiotics. 4. Diabetes mellitus. Recommend tight glycemic control to keep blood glucose between 100 to 140. 5. End-stage renal disease, on hemodialysis. Renal service is following. The patient eventually may need to continue his IV antibiotics with hemodialysis center upon discharge. Thank you for the consult. ID will continue to follow. Cira Ceja M.D. DR: PERRY JOB#: [id number] CC: REBECCA
--- NOTE | 2018-01-11 23:45 | History and Physical Report ---
DATE OF ADMISSION: 01/10/2018 CHIEF COMPLAINT: The patient is a 52-year-old male, who presents with a chief complaint of right foot pain. HISTORY OF PRESENT ILLNESS: The patient is status post right foot transmetatarsal amputation. The patient has a history of osteomyelitis of the right foot. The patient was seen by Podiatry, Dr. Lane on 01/10/2018. The recent transmetatarsal amputation site had dehisced. The wound was open. The patient was referred to [facility] emergency room for evaluation. The patient is admitted for right foot pain and dehiscence of the right foot surgical site. PAST MEDICAL HISTORY: Significant for, 1. Diabetes type 2. 2. Hypertension. 3. Hypercholesterolemia. 4. Hemorrhagic stroke in 2011. 5. Osteomyelitis of the right foot as above. 6. End-stage renal disease, on hemodialysis every Tuesday, , and Tuesday. 7. Renal cell cancer, status post nephrectomy. 8. Peripheral vascular disease. 9. History of upper gastrointestinal hemorrhage. PAST SURGICAL HISTORY: Significant for, 1. Right foot transmetatarsal amputation. 2. Arteriovenous graft for dialysis. 3. Left nephrectomy secondary to renal cell cancer as above. CURRENT MEDICATIONS: 1. Amlodipine 10 mg one tablet p.o. daily. 2. Aspirin 81 mg p.o. daily. 3. Atorvastatin 80 mg p.o. at bedtime. 4. Escitalopram 10 mg p.o. daily. 5. Hydralazine 50 mg p.o. 3 times daily. 6. Isosorbide mononitrate 30 mg p.o. daily. 7. Metoprolol 100 mg one tab p.o. twice daily. 8. Renvela 800 mg p.o. 3 times daily. 9. Velphoro 500 mg p.o. daily. 10. Valsartan 160 mg p.o. daily. ALLERGIES: No known drug allergies. SOCIAL HISTORY: The patient is single. The patient denies tobacco use having quit in 2014. The patient denies alcohol use. REVIEW OF SYSTEMS: CONSTITUTIONAL: The patient denies weight loss or weight gain. The patient denies fevers or chills. HEENT: The patient denies ear or throat pain. The patient denies headache. CARDIOVASCULAR: The patient denies palpitations or chest pain. CHEST: The patient denies wheeze or shortness of breath. ABDOMEN: The patient denies nausea, vomiting, diarrhea, or constipation. GENITOURINARY: The patient denies dysuria or increased frequency of urination. NEUROMUSCULAR: The patient complains of right foot pain as above. The patient denies seizures or generalized weakness. PHYSICAL EXAMINATION: VITAL SIGNS: Temperature 98.1, respirations 17, pulse 97, and blood pressure 172/98. GENERAL: The patient is a well-developed and well-nourished male, in no apparent distress. HEENT: Eyes, pupils equal and responsive to light and accommodation. Extraocular movements are intact. NECK: Supple without lymphadenopathy. CHEST: Lungs are clear to auscultation bilaterally without wheezes or rales. CARDIOVASCULAR: Regular rhythm and rate. S1, S2 are normal without murmurs, rubs, or gallops. ABDOMEN: Soft, nontender, and nondistended. Positive bowel sounds. No evidence of hepatosplenomegaly. Currently, no rebound or guarding noted. EXTREMITIES: Negative for clubbing, cyanosis, or edema. RECTAL/GENITAL: Refused. NEUROLOGIC: Cranial nerves II through XII are grossly intact without focal deficits. Motor strength is 5/5 bilaterally. Deep tendon reflexes are 2+ plantar. LABORATORY AND DIAGNOSTIC DATA: An x-ray of the right foot revealed transmetatarsal surgical skin mile . Otherwise, within normal limits. WBC 6.5, hemoglobin 10.9, hematocrit 32.5, and platelets 345,000. Sodium 138, potassium 4.1, chloride 95, CO2 37, BUN 23, creatinine 6.5, and glucose 343. ASSESSMENT: This is a 52-year-old male. 1. Dehiscence of the right transmetatarsal surgical wound. 2. Diabetes type 2. 3. Hypertension. 4. End-stage renal disease, on hemodialysis every Tuesday, , and Tuesday. 5. Hypercholesterolemia. 6. Osteomyelitis of the right foot. 7. History of renal cell cancer. 8. Status post cerebrovascular accident. 9. History of upper gastrointestinal hemorrhage. TREATMENT: 1. Right foot transmetatarsal dehiscence. A Podiatry consultation was obtained with Dr. Lane. We will follow recommendations of Podiatry. 2. Diabetes type 2. The patient has been started on a NovoLog sliding scale. 3. Hypertension. Continue hydralazine and Diovan as above. 4. Hypercholesterolemia. Continue Lipitor as above. 5. End-stage renal disease. A Nephrology consultation was obtained with Dr. Celaya. We will follow recommendations of Nephrology. The patient is scheduled for dialysis on , 01/12/2018. 6. Osteomyelitis of the foot, status post antibiotic therapy. An Infectious Disease consultation has been obtained with Dr. Aguirre. 7. History of renal cell cancer. The patient is status post left nephrectomy. 8. Status post hemorrhagic cerebrovascular accident. 9. Status post upper gastrointestinal hemorrhage. Miles Lobo M.D. DR: SYED JOB#: [id number] CC:
[2018-01-12 00:35] VITALS: BP 166/94
[2018-01-12 04:00] VITALS: BP 146/75
[2018-01-12 04:08] LABS: BASOPHILS % (AUTO) 0.6 % (0.0-2.0); HEMATOCRIT 28.9 % (42.0-52.0); HEMOGLOBIN 9.5 G/DL (14.2-18.0); LYMPHOCYTES % (AUTO) 25.4 % (20.0-45.0); MEAN CORPUSCULAR VOLUME 96 FL (80-99); MONOCYTES % (AUTO) 9.2 % (1.0-10.0); NEUTROPHILS % (AUTO) 62.8 % (45.0-75.0); PLATELET COUNT 326 K/UL (150-450); RED BLOOD COUNT 3.01 M/UL (4.70-6.10); RED CELL DISTRIBUTION WIDTH 15.3 % (11.6-14.8); WHITE BLOOD COUNT 5.6 K/UL (4.8-10.8)
[2018-01-12 04:26] LABS: ALANINE AMINOTRANSFERASE 11 U/L (12-78); ALBUMIN 2.6 G/DL (3.4-5.0); ALBUMIN/GLOBULIN RATIO 0.5 (1.0-2.7); ALKALINE PHOSPHATASE 127 U/L (46-116); ANION GAP 6 mmol/L (5-15); ASPARTATE AMINO TRANSFERASE 9 U/L (15-37); BILIRUBIN,TOTAL 0.4 MG/DL (0.2-1.0); BLOOD UREA NITROGEN 38 mg/dL (7-18); CALCIUM 8.2 MG/DL (8.5-10.1); CARBON DIOXIDE 32 MMOL/L (21-32); CHLORIDE 95 MMOL/L (98-107); CREATININE 9.5 MG/DL (0.55-1.30); POTASSIUM 4.4 MMOL/L (3.5-5.1); SODIUM 133 MMOL/L (136-145)
[2018-01-12] MEDS: HydrALAZINE 50mg tab ORAL SCH ×3 (06:17→21:05)
[2018-01-12] MEDS: NovoLOG Insulin Flexpen SUBQ SCH ×4 (06:18→21:07)
[2018-01-12 08:00] VITALS: BP 133/56
--- NOTE | 2018-01-12 08:28 | Nephrology Progress Note ---
Assessment/Plan Plan patient seen and examined full consult dictated dialysis was ordered thank you Objective Objective Last 24 Hour Vital Signs Date Time Temp Pulse Resp B/P (MAP) Pulse Ox O2 Delivery O2 Flow Rate FiO2 01/12/18 06:17 146/75 01/12/18 04:00 98.4 80 20 146/75 (98) 99 01/12/18 00:35 98.6 83 16 166/94 (118) 100 01/11/18 21:00 Room Air 01/11/18 20:49 140/82 01/11/18 20:11 99 16 Room Air 21 01/11/18 20:11 98.5 79 20 140/82 (101) 100 01/11/18 16:00 97.0 79 19 140/83 (102) 96 01/11/18 14:02 144/83 01/11/18 12:00 98.2 81 19 144/83 (103) 96 01/11/18 09:00 Room Air 01/11/18 08:53 89 129/75 01/11/18 08:52 89 129/75 Intake and Output 01/11/18 01/12/18 19:00 07:00 Intake Total 760 ml 255 ml Balance 760 ml 255 ml Intake Oral 760 ml 200 ml IV Total 55 ml # Voids 3 3 # Bowel Movements 1 Laboratory Tests 01/12/18 04:00: White Blood Count 5.6, Red Blood Count 3.01L, Hemoglobin 9.5L, Hematocrit 28.9L , Mean Corpuscular Volume 96, Mean Corpuscular Hemoglobin 31.6H, Mean Corpuscular Hemoglobin Concent 32.9, Red Cell Distribution Width 15.3H, Platelet Count 326, Mean Platelet Volume 5.5L, Neutrophils (%) (Auto) 62.8, Lymphocytes (%) (Auto) 25.4, Monocytes (%) (Auto) 9.2, Eosinophils (%) (Auto) 2.0, Basophils (%) (Auto) 0.6, Erythrocyte Sedimentation Rate 112H, Sodium Level 133L, Potassium Level 4.4, Chloride Level 95L, Carbon Dioxide Level 32, Anion Gap 6, Blood Urea Nitrogen 38H, Creatinine 9.5H, Estimat Glomerular Filtration Rate 7.2, Glucose Level 212H, Calcium Level 8.2L, Phosphorus Level 4.0, Magnesium Level 2.3, Total Bilirubin 0.4, Aspartate Amino Transf (AST/SGOT ) 9L, Alanine Aminotransferase (ALT/SGPT) 11L, Alkaline Phosphatase 127H, Total Protein 7.5, Albumin 2.6L, Globulin 4.9, Albumin/Globulin Ratio 0.5L, Random Vancomycin Level 19.6 Height (Feet): 6 Height (Inches): 0.00 Weight (Pounds): 204 Tessa Schwartz MD Jan 12, 2018 08:28
[2018-01-12] MEDS: Metoprolol Succinate XL 100mg tab ORAL SCH (09:00)
[2018-01-12] MEDS: Aspirin Baby 81mg ORAL SCH (09:29)
[2018-01-12] MEDS: Renvela 800mg Pkt ORAL SCH ×3 (09:29→17:30)
[2018-01-12] MEDS: Heparin 5000 units/ml inj SUBQ SCH ×2 (09:31→21:06)
[2018-01-12 12:00] VITALS: BP 147/70
--- NOTE | 2018-01-12 12:25 | Pulmonology Progress Note ---
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 (3) ESRD (end stage renal disease) (4) HTN (hypertension) (5) Diabetes mellitus Assessment/Plan improving continue abx f/u podiatry recommendations sliding scale diabetic diet HD by flooring mechanic Subjective ROS Limited/Unobtainable: No Constitutional: Reports: no symptoms HEENT: Repors: no symptoms Allergies: Coded Allergies: NO KNOWN ALLERGIES (Verified Allergy, Unknown, 12/04/17) Objective Last 24 Hour Vital Signs Date Time Temp Pulse Resp B/P (MAP) Pulse Ox O2 Delivery O2 Flow Rate FiO2 01/12/18 09:00 83 133/56 01/12/18 09:00 83 133/56 01/12/18 09:00 Room Air 01/12/18 08:00 97.7 83 20 133/56 (81) 95 01/12/18 07:19 82 16 Room Air 21 01/12/18 06:17 146/75 01/12/18 04:00 98.4 80 20 146/75 (98) 99 01/12/18 00:35 98.6 83 16 166/94 (118) 100 01/11/18 21:00 Room Air 01/11/18 20:49 140/82 01/11/18 20:11 99 16 Room Air 21 01/11/18 20:11 98.5 79 20 140/82 (101) 100 01/11/18 16:00 97.0 79 19 140/83 (102) 96 01/11/18 14:02 144/83 Intake and Output 01/11/18 01/12/18 19:00 07:00 Intake Total 760 ml 255 ml Balance 760 ml 255 ml Intake Oral 760 ml 200 ml IV Total 55 ml # Voids 3 3 # Bowel Movements 1 General Appearance: WD/WN HEENT: normocephalic, atraumatic Respiratory/Chest: chest wall non-tender, lungs clear Cardiovascular: normal peripheral pulses, normal rate Abdomen: normal bowel sounds, soft, non tender Genitourinary: normal external genitalia Extremities: no cyanosis Skin: no rash Microbiology Date/Time Source Procedure Growth Status 01/10/18 19:10 Nasal Nares MRSA Culture - Final NO METHICILLIN RESISTANT STAPH AUREUS... Complete 01/10/18 22:00 Foot Right Gram Stain Pending Resulted 01/10/18 22:00 Wound Culture - Preliminary Gram Negative Bacillus 1 Resulted 01/10/18 19:10 Rectum VRE Culture - Final NO VANCOMYCIN RESISTANT ENTEROCOCCUS ... Complete 01/10/18 19:10 Rectum - Final NO CARBAPENEM-RESISTANT ENTEROBACTERI... Complete Laboratory Tests 01/12/18 04:00: White Blood Count 5.6, Red Blood Count 3.01L, Hemoglobin 9.5L, Hematocrit 28.9L , Mean Corpuscular Volume 96, Mean Corpuscular Hemoglobin 31.6H, Mean Corpuscular Hemoglobin Concent 32.9, Red Cell Distribution Width 15.3H, Platelet Count 326, Mean Platelet Volume 5.5L, Neutrophils (%) (Auto) 62.8, Lymphocytes (%) (Auto) 25.4, Monocytes (%) (Auto) 9.2, Eosinophils (%) (Auto) 2.0, Basophils (%) (Auto) 0.6, Erythrocyte Sedimentation Rate 112H, Sodium Level 133L, Potassium Level 4.4, Chloride Level 95L, Carbon Dioxide Level 32, Anion Gap 6, Blood Urea Nitrogen 38H, Creatinine 9.5H, Estimat Glomerular Filtration Rate 7.2, Glucose Level 212H, Calcium Level 8.2L, Phosphorus Level 4.0, Magnesium Level 2.3, Total Bilirubin 0.4, Aspartate Amino Transf (AST/SGOT ) 9L, Alanine Aminotransferase (ALT/SGPT) 11L, Alkaline Phosphatase 127H, Total Protein 7.5, Albumin 2.6L, Globulin 4.9, Albumin/Globulin Ratio 0.5L, Random Vancomycin Level 19.6 Current Medications Medications (Trade) Dose Ordered Sig/Felix Route PRN Reason Start Time Stop Time Status Last Admin Dose Admin Acetaminophen (Tylenol) 650 mg Q4H PRN ORAL fever 01/10/18 18:15 02/09/18 18:14 Albuterol/ Ipratropium (Albuterol/ Ipratropium) 3 ml Q4H PRN HHN Shortness of Breath 01/10/18 18:15 01/15/18 18:14 Amlodipine Besylate (Norvasc) 5 mg DAILY ORAL 01/11/18 09:00 02/10/18 08:59 01/11/18 08:53 Aspirin (ASA) 81 mg DAILY ORAL 01/11/18 09:00 02/10/18 08:59 01/12/18 09:29 Atorvastatin Calcium (Lipitor) 10 mg BEDTIME ORAL 01/10/18 21:00 02/09/18 20:59 01/11/18 20:46 Cefepime HCl 500 mg/Dextrose 55 ml @ 110 mls/hr Q24H IVPB 01/11/18 21:00 01/18/18 20:59 01/11/18 20:46 Dextrose (Dextrose 50%) 25 ml Q30M PRN IV Hypoglycemia 01/10/18 18:15 02/09/18 18:14 Dextrose (Dextrose 50%) 50 ml Q30M PRN IV Hypoglycemia 01/10/18 18:30 02/09/18 18:29 Epoetin Daniel (Procrit (for ESRD on dialysis)) 7,000 units TUE-TUE-TUE SUBQ 01/13/18 21:00 02/12/18 20:59 Escitalopram Oxalate (Lexapro) 10 mg DAILY ORAL 01/11/18 09:00 02/10/18 08:59 01/12/18 09:29 Heparin Sodium (Porcine) (Heparin 5000 units/ml) 5,000 units EVERY 12 HOURS SUBQ 01/10/18 21:00 02/09/18 20:59 01/12/18 09:31 Hydralazine HCl (Apresoline) 50 mg EVERY 8 HOURS ORAL 01/10/18 22:00 02/09/18 21:59 01/12/18 06:17 Insulin Aspart (NovoLOG) BEFORE MEALS AND HS SUBQ 01/10/18 21:00 02/09/18 20:59 01/12/18 11:57 Metoprolol Succinate (Toprol XL) 200 mg DAILY ORAL 01/11/18 09:00 02/10/18 08:59 01/11/18 08:52 Morphine Sulfate (Morphine Sulfate) 2 mg Q4H PRN IVP Moderate Pain (Pain Scale 4-6) 01/10/18 18:15 01/17/18 18:14 Nitroglycerin (Ntg) 0.4 mg Q5M PRN SL Prn Chest Pain 01/10/18 18:15 02/09/18 18:14 Ondansetron HCl (Zofran) 4 mg Q6H PRN IVP Nausea & Vomiting 01/10/18 18:15 02/09/18 18:14 Polyethylene Glycol (Miralax) 17 gm DAILYPRN PRN ORAL Constipation 01/10/18 18:15 02/09/18 18:14 Pravastatin Sodium (Pravachol) 40 mg BEDTIME ORAL 01/10/18 21:00 02/09/18 20:59 01/11/18 20:46 Sevelamer Carbonate (Renvela) 800 mg THREE TIMES A DAY ORAL 01/11/18 09:00 02/10/18 08:59 01/12/18 09:29 Temazepam (Restoril) 15 mg HSPRN PRN ORAL Insomnia 01/10/18 18:15 01/17/18 18:14 Vancomycin HCl (Vanco rx to dose) 1 ea DAILY PRN MISC per rx protocol 01/10/18 19:30 02/09/18 19:29 Vancomycin HCl 1 gm/Dextrose 275 ml @ 183.708 mls/hr ONCE ONCE IVPB 01/12/18 21:00 01/12/18 22:29 Jorge Anaya MD Jan 12, 2018 12:25
--- NOTE | 2018-01-12 12:40 | Consultation ---
History of Present Illness General Date patient seen: Jan 11, 2018 Chief Complaint: General Complaint Present Illness HPI 52-year-old male, who presents with a chief complaint of right foot pain. the pt has hx of depression and anxiety. the pt has cognitive impairment. the pt is currently on Lexapro. the pt has anxiety d/o and is low energy. the pt has no si/hi Allergies: Coded Allergies: NO KNOWN ALLERGIES (Verified Allergy, Unknown, 12/04/17) Medication History Scheduled Amlodipine Besylate (Norvasc), 5 MG ORAL DAILY, (Reported) Amlodipine Besylate (Norvasc), 10 MG ORAL DAILY, (Reported) Aspirin* (Aspirin*), 81 MG ORAL DAILY, (Reported) Atorvastatin (Lipitor), 10 MG ORAL BEDTIME, (Reported) Escitalopram Oxalate* (Lexapro*), 10 MG ORAL DAILY, (Reported) Hydralazine Hcl* (Hydralazine Hcl*), 50 MG ORAL EVERY 8 HOURS, (Reported) Metoprolol Succinate* (Metoprolol Succinate*), 200 MG ORAL DAILY, (Reported) Metoprolol Tartrate* (Metoprolol Tartrate*), 100 MG ORAL EVERY 12 HOURS, ( Reported) Pravastatin Sod* (Pravastatin Sod*), 40 MG ORAL BEDTIME, (Reported) Sevelamer Carbonate* (Renvela*), 800 MG ORAL THREE TIMES A DAY, (Reported) Valsartan (Diovan), 160 MG ORAL DAILY, (Reported) Miscellaneous Medications Isosorbide Mononitrate (Isosorbide Mononitrate Er), 30 MG PO, (Reported) Robinson/Polymyx B Sulf/Dexameth (Bvxigx-Rtsua-Taogkpdh Eye Drop), 3.5 ML OP, ( Reported) Promethazine HCl/Codeine (Prometh-Codein 6.25-10 mg/5 ml), 5 ML PO, (Reported) Sucroferric Oxyhydroxide (Velphoro), 500 MG PO, (Reported) Sucroferric Oxyhydroxide (Velphoro), 500 MG PO, (Reported) Patient History Limited by: medical condition History Provided By: Patient, Medical Record, PMD Healthcare decision maker Resuscitation status Advanced Directive on File Past Medical/Surgical History Past Medical/Surgical History: (1) Diabetic neuropathy (2) Encephalopathy (3) Altered mental status (4) Diabetic nephropathy (5) Diabetes mellitus (6) ESRD (end stage renal disease) (7) HTN (hypertension) (8) Sepsis (9) 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 (10) Acute osteomyelitis of metatarsal bone of right foot (11) Ulcer of amputation stump of foot Review of Systems Psychiatric: Reports: prior hx, anxiety, depressed feelings, emotional problems Physical Exam General Appearance: no apparent distress, alert Neurologic: oriented x 3, responsive, depressed affect Last 24 Hour Vital Signs Date Time Temp Pulse Resp B/P (MAP) Pulse Ox O2 Delivery O2 Flow Rate FiO2 01/12/18 09:00 83 133/56 01/12/18 09:00 83 133/56 01/12/18 09:00 Room Air 01/12/18 08:00 97.7 83 20 133/56 (81) 95 01/12/18 07:19 82 16 Room Air 21 01/12/18 06:17 146/75 01/12/18 04:00 98.4 80 20 146/75 (98) 99 01/12/18 00:35 98.6 83 16 166/94 (118) 100 01/11/18 21:00 Room Air 01/11/18 20:49 140/82 01/11/18 20:11 99 16 Room Air 21 01/11/18 20:11 98.5 79 20 140/82 (101) 100 01/11/18 16:00 97.0 79 19 140/83 (102) 96 01/11/18 14:02 144/83 Intake and Output 01/11/18 01/12/18 19:00 07:00 Intake Total 760 ml 255 ml Balance 760 ml 255 ml Intake Oral 760 ml 200 ml IV Total 55 ml # Voids 3 3 # Bowel Movements 1 Laboratory Tests Test 01/12/18 04:00 White Blood Count 5.6 K/UL (4.8-10.8) Red Blood Count 3.01 M/UL (4.70-6.10) L Hemoglobin 9.5 G/DL (14.2-18.0) L Hematocrit 28.9 % (42.0-52.0) L Mean Corpuscular Volume 96 FL (80-99) Mean Corpuscular Hemoglobin 31.6 PG (27.0-31.0) H Mean Corpuscular Hemoglobin Concent 32.9 G/DL (32.0-36.0) Red Cell Distribution Width 15.3 % (11.6-14.8) H Platelet Count 326 K/UL (150-450) Mean Platelet Volume 5.5 FL (6.5-10.1) L Neutrophils (%) (Auto) 62.8 % (45.0-75.0) Lymphocytes (%) (Auto) 25.4 % (20.0-45.0) Monocytes (%) (Auto) 9.2 % (1.0-10.0) Eosinophils (%) (Auto) 2.0 % (0.0-3.0) Basophils (%) (Auto) 0.6 % (0.0-2.0) Erythrocyte Sedimentation Rate 112 MM/HR (0-15) H Sodium Level 133 MMOL/L (136-145) L Potassium Level 4.4 MMOL/L (3.5-5.1) Chloride Level 95 MMOL/L (98-107) L Carbon Dioxide Level 32 MMOL/L (21-32) Anion Gap 6 mmol/L (5-15) Blood Urea Nitrogen 38 mg/dL (7-18) H Creatinine 9.5 MG/DL (0.55-1.30) H Estimat Glomerular Filtration Rate 7.2 mL/min (>60) Glucose Level 212 MG/DL (74-106) H Calcium Level 8.2 MG/DL (8.5-10.1) L Phosphorus Level 4.0 MG/DL (2.5-4.9) Magnesium Level 2.3 MG/DL (1.8-2.4) Total Bilirubin 0.4 MG/DL (0.2-1.0) Aspartate Amino Transf (AST/SGOT) 9 U/L (15-37) L Alanine Aminotransferase (ALT/SGPT) 11 U/L (12-78) L Alkaline Phosphatase 127 U/L (46-116) H Total Protein 7.5 G/DL (6.4-8.2) Albumin 2.6 G/DL (3.4-5.0) L Globulin 4.9 g/dL Albumin/Globulin Ratio 0.5 (1.0-2.7) L Random Vancomycin Level 19.6 ug/mL Height (Feet): 6 Height (Inches): 0.00 Weight (Pounds): 204 Medications Current Medications Medications (Trade) Dose Ordered Sig/Felix Route PRN Reason Start Time Stop Time Status Last Admin Dose Admin Acetaminophen (Tylenol) 650 mg Q4H PRN ORAL fever 01/10/18 18:15 02/09/18 18:14 Albuterol/ Ipratropium (Albuterol/ Ipratropium) 3 ml Q4H PRN HHN Shortness of Breath 01/10/18 18:15 01/15/18 18:14 Amlodipine Besylate (Norvasc) 5 mg DAILY ORAL 01/11/18 09:00 02/10/18 08:59 01/11/18 08:53 Aspirin (ASA) 81 mg DAILY ORAL 01/11/18 09:00 02/10/18 08:59 01/12/18 09:29 Atorvastatin Calcium (Lipitor) 10 mg BEDTIME ORAL 01/10/18 21:00 02/09/18 20:59 01/11/18 20:46 Cefepime HCl 500 mg/Dextrose 55 ml @ 110 mls/hr Q24H IVPB 01/11/18 21:00 01/18/18 20:59 01/11/18 20:46 Dextrose (Dextrose 50%) 25 ml Q30M PRN IV Hypoglycemia 01/10/18 18:15 02/09/18 18:14 Dextrose (Dextrose 50%) 50 ml Q30M PRN IV Hypoglycemia 01/10/18 18:30 02/09/18 18:29 Epoetin Daniel (Procrit (for ESRD on dialysis)) 7,000 units TUE-TUE-TUE SUBQ 01/13/18 21:00 02/12/18 20:59 Escitalopram Oxalate (Lexapro) 10 mg DAILY ORAL 01/11/18 09:00 02/10/18 08:59 01/12/18 09:29 Heparin Sodium (Porcine) (Heparin 5000 units/ml) 5,000 units EVERY 12 HOURS SUBQ 01/10/18 21:00 02/09/18 20:59 01/12/18 09:31 Hydralazine HCl (Apresoline) 50 mg EVERY 8 HOURS ORAL 01/10/18 22:00 02/09/18 21:59 01/12/18 06:17 Insulin Aspart (NovoLOG) BEFORE MEALS AND HS SUBQ 01/10/18 21:00 02/09/18 20:59 01/12/18 11:57 Metoprolol Succinate (Toprol XL) 200 mg DAILY ORAL 01/11/18 09:00 02/10/18 08:59 01/11/18 08:52 Morphine Sulfate (Morphine Sulfate) 2 mg Q4H PRN IVP Moderate Pain (Pain Scale 4-6) 01/10/18 18:15 01/17/18 18:14 Nitroglycerin (Ntg) 0.4 mg Q5M PRN SL Prn Chest Pain 01/10/18 18:15 02/09/18 18:14 Ondansetron HCl (Zofran) 4 mg Q6H PRN IVP Nausea & Vomiting 01/10/18 18:15 02/09/18 18:14 Polyethylene Glycol (Miralax) 17 gm DAILYPRN PRN ORAL Constipation 01/10/18 18:15 02/09/18 18:14 Pravastatin Sodium (Pravachol) 40 mg BEDTIME ORAL 01/10/18 21:00 02/09/18 20:59 01/11/18 20:46 Sevelamer Carbonate (Renvela) 800 mg THREE TIMES A DAY ORAL 01/11/18 09:00 02/10/18 08:59 01/12/18 09:29 Temazepam (Restoril) 15 mg HSPRN PRN ORAL Insomnia 01/10/18 18:15 01/17/18 18:14 Vancomycin HCl (Vanco rx to dose) 1 ea DAILY PRN MISC per rx protocol 01/10/18 19:30 02/09/18 19:29 Vancomycin HCl 1 gm/Dextrose 275 ml @ 183.708 mls/hr ONCE ONCE IVPB 01/12/18 21:00 01/12/18 22:29 Assessment/Plan Problem List: (1) Encephalopathy ICD Codes: G93.40 - Encephalopathy, unspecified SNOMED: 27571584 (2) mdd Status: stable Assessment/Plan lexapro 10mg qam provided ro/Leora Sesay MD Jan 12, 2018 12:40
--- NOTE | 2018-01-12 12:41 | General Progress Note ---
Assessment/Plan Problem List: (1) Encephalopathy ICD Codes: G93.40 - Encephalopathy, unspecified SNOMED: 49491945 (2) mdd Status: stable Assessment/Plan lexapro 10mg qam provided ro/st Subjective Date patient seen: Jan 12, 2018 Gastrointestinal/Abdominal: Reports: nausea, poor appetite Neurologic/Psychiatric: Reports: anxiety, depressed, emotional problems Allergies: Coded Allergies: NO KNOWN ALLERGIES (Verified Allergy, Unknown, 12/04/17) Objective Last 24 Hour Vital Signs Date Time Temp Pulse Resp B/P (MAP) Pulse Ox O2 Delivery O2 Flow Rate FiO2 01/12/18 09:00 83 133/56 01/12/18 09:00 83 133/56 01/12/18 09:00 Room Air 01/12/18 08:00 97.7 83 20 133/56 (81) 95 01/12/18 07:19 82 16 Room Air 21 01/12/18 06:17 146/75 01/12/18 04:00 98.4 80 20 146/75 (98) 99 01/12/18 00:35 98.6 83 16 166/94 (118) 100 01/11/18 21:00 Room Air 01/11/18 20:49 140/82 01/11/18 20:11 99 16 Room Air 21 01/11/18 20:11 98.5 79 20 140/82 (101) 100 01/11/18 16:00 97.0 79 19 140/83 (102) 96 01/11/18 14:02 144/83 Intake and Output 01/11/18 01/12/18 19:00 07:00 Intake Total 760 ml 255 ml Balance 760 ml 255 ml Intake Oral 760 ml 200 ml IV Total 55 ml # Voids 3 3 # Bowel Movements 1 Laboratory Tests 01/12/18 04:00: White Blood Count 5.6, Red Blood Count 3.01L, Hemoglobin 9.5L, Hematocrit 28.9L , Mean Corpuscular Volume 96, Mean Corpuscular Hemoglobin 31.6H, Mean Corpuscular Hemoglobin Concent 32.9, Red Cell Distribution Width 15.3H, Platelet Count 326, Mean Platelet Volume 5.5L, Neutrophils (%) (Auto) 62.8, Lymphocytes (%) (Auto) 25.4, Monocytes (%) (Auto) 9.2, Eosinophils (%) (Auto) 2.0, Basophils (%) (Auto) 0.6, Erythrocyte Sedimentation Rate 112H, Sodium Level 133L, Potassium Level 4.4, Chloride Level 95L, Carbon Dioxide Level 32, Anion Gap 6, Blood Urea Nitrogen 38H, Creatinine 9.5H, Estimat Glomerular Filtration Rate 7.2, Glucose Level 212H, Calcium Level 8.2L, Phosphorus Level 4.0, Magnesium Level 2.3, Total Bilirubin 0.4, Aspartate Amino Transf (AST/SGOT ) 9L, Alanine Aminotransferase (ALT/SGPT) 11L, Alkaline Phosphatase 127H, Total Protein 7.5, Albumin 2.6L, Globulin 4.9, Albumin/Globulin Ratio 0.5L, Random Vancomycin Level 19.6 Height (Feet): 6 Height (Inches): 0.00 Weight (Pounds): 204 General Appearance: no apparent distress, alert Neurologic: oriented x 3, responsive Leora Bishop MD Jan 12, 2018 12:41
--- NOTE | 2018-01-12 13:38 | Diagnostic Imaging Report ---
Indication: Status post transmetatarsal interpretation, now with increased draining wound of the agitation stump Technique: Sagittal, coronal, and axial T 1 fast spin echo and fast spin echo STIR images of the hindfoot Comparison: 12/05/2017 Findings: Abnormal increased STIR and decreased T1 signal is seen in all of the metatarsal stumps, and there is indistinctness of the anterior aspect of all of these. This is more extensive and is seen more proximally than on the previous exam All of the metatarsal stumps appear shorter than on the previous study. Uncertain as to whether this is due to progressive erosive change or due to interim reamputation, the latter suggested by the presence of skin mile on both the current study and a recent foot radiograph. However, indistinctness of the distal margins suggests a destructive component. There is evidence of soft tissue ulceration, particularly laterally. Some gas is seen within the soft tissues adjacent to the first metatarsal stump. There is extensive edema of the distal soft tissues. Within the cuneiforms, there is mildly increased STIR signal without corresponding T1 signal abnormality. Likewise, no abnormal activity is seen within the navicular, cuboid, or talus. No focal fluid collections to suggest drainable abscess demonstrated. Impression: Abnormal T1 and STIR signal within all 5 metatarsal stumps. This extends more proximally than on the previous MRI. Given evidence of recent surgery, it is possible that this represents edema related to the recent surgery. However, given findings suggestive of osteomyelitis on earlier MRI, and evidence of distal destructive change, adjacent soft tissue abnormality, findings are worrisome for progressive osteomyelitis of L5 digits Evidence of soft tissue ulceration. Small amount of soft tissue gas could represent residual air from the recent surgical exposure, or could represent infection by gas-forming organism. Findings discussed by phone with Dr. Mcdonald No evidence of drainable abscess
--- NOTE | 2018-01-12 13:52 | Podiatric Progress Note ---
Assessment/Plan Patient Mahsa Claire is a 52 year old male who was admitted on Jan 10, 2018 at 17: 46 with Assessment/Plan A/ 1) Infected DM foot ulcer right foot 2) Osteomyelitis right foot 3) PAD 4) DM neuropathy and uncontrolled 5) ESRD 6) Noncompliant 7) Encephalopathy P/ 1) Cont wound care. May need wound VAC to accelerate healing. No surgical intervention indicated at this time. 2) D/W ID, abx per ID 3) Requires strict glycemic control for optimal wound healing 4) Recommend SNF placement for advanced wound care, glycemic control, abx management. 5) Will follow Subjective Allergies: Coded Allergies: NO KNOWN ALLERGIES (Verified Allergy, Unknown, 12/04/17) Subjective Patient feeling better. No new complaints Objective Exam Last 24 Hour Vital Signs Date Time Temp Pulse Resp B/P (MAP) Pulse Ox O2 Delivery O2 Flow Rate FiO2 01/12/18 09:00 83 133/56 01/12/18 09:00 83 133/56 01/12/18 09:00 Room Air 01/12/18 08:00 97.7 83 20 133/56 (81) 95 01/12/18 07:19 82 16 Room Air 21 01/12/18 06:17 146/75 01/12/18 04:00 98.4 80 20 146/75 (98) 99 01/12/18 00:35 98.6 83 16 166/94 (118) 100 01/11/18 21:00 Room Air 01/11/18 20:49 140/82 01/11/18 20:11 99 16 Room Air 21 01/11/18 20:11 98.5 79 20 140/82 (101) 100 01/11/18 16:00 97.0 79 19 140/83 (102) 96 01/11/18 14:02 144/83 Laboratory Tests Test 01/12/18 04:00 White Blood Count 5.6 K/UL (4.8-10.8) Red Blood Count 3.01 M/UL (4.70-6.10) L Hemoglobin 9.5 G/DL (14.2-18.0) L Hematocrit 28.9 % (42.0-52.0) L Mean Corpuscular Volume 96 FL (80-99) Mean Corpuscular Hemoglobin 31.6 PG (27.0-31.0) H Mean Corpuscular Hemoglobin Concent 32.9 G/DL (32.0-36.0) Red Cell Distribution Width 15.3 % (11.6-14.8) H Platelet Count 326 K/UL (150-450) Mean Platelet Volume 5.5 FL (6.5-10.1) L Neutrophils (%) (Auto) 62.8 % (45.0-75.0) Lymphocytes (%) (Auto) 25.4 % (20.0-45.0) Monocytes (%) (Auto) 9.2 % (1.0-10.0) Eosinophils (%) (Auto) 2.0 % (0.0-3.0) Basophils (%) (Auto) 0.6 % (0.0-2.0) Erythrocyte Sedimentation Rate 112 MM/HR (0-15) H Sodium Level 133 MMOL/L (136-145) L Potassium Level 4.4 MMOL/L (3.5-5.1) Chloride Level 95 MMOL/L (98-107) L Carbon Dioxide Level 32 MMOL/L (21-32) Anion Gap 6 mmol/L (5-15) Blood Urea Nitrogen 38 mg/dL (7-18) H Creatinine 9.5 MG/DL (0.55-1.30) H Estimat Glomerular Filtration Rate 7.2 mL/min (>60) Glucose Level 212 MG/DL (74-106) H Calcium Level 8.2 MG/DL (8.5-10.1) L Phosphorus Level 4.0 MG/DL (2.5-4.9) Magnesium Level 2.3 MG/DL (1.8-2.4) Total Bilirubin 0.4 MG/DL (0.2-1.0) Aspartate Amino Transf (AST/SGOT) 9 U/L (15-37) L Alanine Aminotransferase (ALT/SGPT) 11 U/L (12-78) L Alkaline Phosphatase 127 U/L (46-116) H Total Protein 7.5 G/DL (6.4-8.2) Albumin 2.6 G/DL (3.4-5.0) L Globulin 4.9 g/dL Albumin/Globulin Ratio 0.5 (1.0-2.7) L Random Vancomycin Level 19.6 ug/mL Microbiology Date/Time Source Procedure Growth Status 01/10/18 19:10 Nasal Nares MRSA Culture - Final NO METHICILLIN RESISTANT STAPH AUREUS... Complete 01/10/18 22:00 Foot Right Gram Stain - Final Resulted 01/10/18 22:00 Wound Culture - Preliminary Gram Negative Bacillus 1 Resulted Dermatological Dermatological Narrative Right foot wound with serous discharge. No malodor. No bone or tendon exposed. Wound base red with biofilm present. Landon Lane DPM Jan 12, 2018 13:52
--- NOTE | 2018-01-12 15:17 | Infectious Diseases Prog Note ---
Assessment/Plan Problems: (1) Acute osteomyelitis of metatarsal bone of right foot Assessment & Plan: previously grew MSSA , providenciae rettgeri and proteus mirabilis, underwent revision of his right stump wound after revascularization at [facility] . was discharged on meropenem and cefazoline for 6 weeks . unclear whether he was receiving any at the HD center . MRI of the right foot now showed possible distal metatarsal bones osteomyelitis , and wound culture is growing gram negative rods , will continue vancomycin and cefepime for now pending culture results, will need wound VAC , and new course of iv antibiotics for six weeks in supervised environment such as SNF to ensure receiving antibiotics since he is noncompliant, appreciate application infrastructure engineer input . (2) Ulcer of amputation stump of foot Assessment & Plan: with purulent discharge , rule out under lying osteomyelitis , continue wide spectrum antibiotics pending MRI image of the right foot (3) Sepsis Assessment & Plan: due to the above, await blood culture and continue wide spectrum antibiotics (4) Diabetes mellitus Assessment & Plan: recommend tight glycemic control to keep blood glucose between 100-140 (5) ESRD (end stage renal disease) Assessment & Plan: on HD renal service is following Subjective Constitutional: Reports: no symptoms HEENT: Reports: no symptoms Respiratory: Reports: no symptoms Breasts: Reports: no symptoms Cardiovascular: Reports: no symptoms Gastrointestinal/Abdominal: Reports: no symptoms Genitourinary: Reports: no symptoms Neurologic: Reports: no symptoms Skin: Reports: ulcer Endocrine: Reports: no symptoms Hematologic: Reports: no symptoms Musculoskeletal: Reports: no symptoms Allergies: Coded Allergies: NO KNOWN ALLERGIES (Verified Allergy, Unknown, 12/04/17) Subjective he was comfortable lying in bed, getting hemodialysis. Objective Vital Signs Last 24 Hour Vital Signs Date Time Temp Pulse Resp B/P (MAP) Pulse Ox O2 Delivery O2 Flow Rate FiO2 01/12/18 13:43 Room Air 01/12/18 12:00 98.3 79 20 147/70 (95) 99 01/12/18 09:00 83 133/56 01/12/18 09:00 83 133/56 01/12/18 09:00 Room Air 01/12/18 08:00 97.7 83 20 133/56 (81) 95 01/12/18 07:19 82 16 Room Air 21 01/12/18 06:17 146/75 01/12/18 04:00 98.4 80 20 146/75 (98) 99 01/12/18 00:35 98.6 83 16 166/94 (118) 100 01/11/18 21:00 Room Air 01/11/18 20:49 140/82 01/11/18 20:11 99 16 Room Air 21 01/11/18 20:11 98.5 79 20 140/82 (101) 100 01/11/18 16:00 97.0 79 19 140/83 (102) 96 Height (Feet): 6 Height (Inches): 0.00 Weight (Pounds): 204 General Appearance: WD/WN, no acute distress HEENT: normocephalic, atraumatic, anicteric, mucous membranes moist, PERRL, EOMI, pharynx normal, supple, no JVD Respiratory/Chest: chest wall non-tender, lungs clear, normal breath sounds, no respiratory distress, no accessory muscle use Cardiovascular: normal peripheral pulses, normal rate, regular rhythm, no gallop/murmur, no JVD Abdomen: normal bowel sounds, soft, non tender, no organomegaly, non distended , no mass, no scars Genitourinary: normal external genitalia Extremities: no cyanosis, no clubbing Skin: no rash, no lesions, ulcers, other - right stump wound with open skin draining serosanginous fluids Neurologic/Psychiatric: alert, oriented x 3, responsive Lymphatic: no neck adenopathy, no groin adenopathy Musculoskeletal: normal muscle bulk, no effusion Microbiology Date/Time Source Procedure Growth Status 01/10/18 19:10 Nasal Nares MRSA Culture - Final NO METHICILLIN RESISTANT STAPH AUREUS... Complete 01/10/18 22:00 Foot Right Gram Stain - Final Resulted 01/10/18 22:00 Wound Culture - Preliminary Gram Negative Bacillus 1 Resulted 01/10/18 19:10 Rectum VRE Culture - Final NO VANCOMYCIN RESISTANT ENTEROCOCCUS ... Complete 01/10/18 19:10 Rectum - Final NO CARBAPENEM-RESISTANT ENTEROBACTERI... Complete Laboratory Tests Test 01/12/18 04:00 White Blood Count 5.6 K/UL (4.8-10.8) Red Blood Count 3.01 M/UL (4.70-6.10) L Hemoglobin 9.5 G/DL (14.2-18.0) L Hematocrit 28.9 % (42.0-52.0) L Mean Corpuscular Volume 96 FL (80-99) Mean Corpuscular Hemoglobin 31.6 PG (27.0-31.0) H Mean Corpuscular Hemoglobin Concent 32.9 G/DL (32.0-36.0) Red Cell Distribution Width 15.3 % (11.6-14.8) H Platelet Count 326 K/UL (150-450) Mean Platelet Volume 5.5 FL (6.5-10.1) L Neutrophils (%) (Auto) 62.8 % (45.0-75.0) Lymphocytes (%) (Auto) 25.4 % (20.0-45.0) Monocytes (%) (Auto) 9.2 % (1.0-10.0) Eosinophils (%) (Auto) 2.0 % (0.0-3.0) Basophils (%) (Auto) 0.6 % (0.0-2.0) Erythrocyte Sedimentation Rate 112 MM/HR (0-15) H Sodium Level 133 MMOL/L (136-145) L Potassium Level 4.4 MMOL/L (3.5-5.1) Chloride Level 95 MMOL/L (98-107) L Carbon Dioxide Level 32 MMOL/L (21-32) Anion Gap 6 mmol/L (5-15) Blood Urea Nitrogen 38 mg/dL (7-18) H Creatinine 9.5 MG/DL (0.55-1.30) H Estimat Glomerular Filtration Rate 7.2 mL/min (>60) Glucose Level 212 MG/DL (74-106) H Calcium Level 8.2 MG/DL (8.5-10.1) L Phosphorus Level 4.0 MG/DL (2.5-4.9) Magnesium Level 2.3 MG/DL (1.8-2.4) Total Bilirubin 0.4 MG/DL (0.2-1.0) Aspartate Amino Transf (AST/SGOT) 9 U/L (15-37) L Alanine Aminotransferase (ALT/SGPT) 11 U/L (12-78) L Alkaline Phosphatase 127 U/L (46-116) H Total Protein 7.5 G/DL (6.4-8.2) Albumin 2.6 G/DL (3.4-5.0) L Globulin 4.9 g/dL Albumin/Globulin Ratio 0.5 (1.0-2.7) L Random Vancomycin Level 19.6 ug/mL Current Medications Medications (Trade) Dose Ordered Sig/Felix Route PRN Reason Start Time Stop Time Status Last Admin Dose Admin Acetaminophen (Tylenol) 650 mg Q4H PRN ORAL fever 01/10/18 18:15 02/09/18 18:14 Albuterol/ Ipratropium (Albuterol/ Ipratropium) 3 ml Q4H PRN HHN Shortness of Breath 01/10/18 18:15 01/15/18 18:14 Amlodipine Besylate (Norvasc) 5 mg DAILY ORAL 01/11/18 09:00 02/10/18 08:59 01/11/18 08:53 Aspirin (ASA) 81 mg DAILY ORAL 01/11/18 09:00 02/10/18 08:59 01/12/18 09:29 Atorvastatin Calcium (Lipitor) 10 mg BEDTIME ORAL 01/10/18 21:00 02/09/18 20:59 01/11/18 20:46 Cefepime HCl 500 mg/Dextrose 55 ml @ 110 mls/hr Q24H IVPB 01/11/18 21:00 01/18/18 20:59 01/11/18 20:46 Dextrose (Dextrose 50%) 25 ml Q30M PRN IV Hypoglycemia 01/10/18 18:15 02/09/18 18:14 Dextrose (Dextrose 50%) 50 ml Q30M PRN IV Hypoglycemia 01/10/18 18:30 02/09/18 18:29 Epoetin Daniel (Procrit (for ESRD on dialysis)) 7,000 units TUE-TUE-TUE SUBQ 01/13/18 21:00 02/12/18 20:59 Escitalopram Oxalate (Lexapro) 10 mg DAILY ORAL 01/11/18 09:00 02/10/18 08:59 01/12/18 09:29 Heparin Sodium (Porcine) (Heparin 5000 units/ml) 5,000 units EVERY 12 HOURS SUBQ 01/10/18 21:00 02/09/18 20:59 01/12/18 09:31 Hydralazine HCl (Apresoline) 50 mg EVERY 8 HOURS ORAL 01/10/18 22:00 02/09/18 21:59 01/12/18 06:17 Insulin Aspart (NovoLOG) BEFORE MEALS AND HS SUBQ 01/10/18 21:00 02/09/18 20:59 01/12/18 11:57 Metoprolol Succinate (Toprol XL) 200 mg DAILY ORAL 01/11/18 09:00 02/10/18 08:59 01/11/18 08:52 Morphine Sulfate (Morphine Sulfate) 2 mg Q4H PRN IVP Moderate Pain (Pain Scale 4-6) 01/10/18 18:15 01/17/18 18:14 Nitroglycerin (Ntg) 0.4 mg Q5M PRN SL Prn Chest Pain 01/10/18 18:15 02/09/18 18:14 Ondansetron HCl (Zofran) 4 mg Q6H PRN IVP Nausea & Vomiting 01/10/18 18:15 02/09/18 18:14 01/12/18 12:43 Polyethylene Glycol (Miralax) 17 gm DAILYPRN PRN ORAL Constipation 01/10/18 18:15 02/09/18 18:14 Pravastatin Sodium (Pravachol) 40 mg BEDTIME ORAL 01/10/18 21:00 02/09/18 20:59 01/11/18 20:46 Sevelamer Carbonate (Renvela) 800 mg THREE TIMES A DAY ORAL 01/11/18 09:00 02/10/18 08:59 01/12/18 12:43 Temazepam (Restoril) 15 mg HSPRN PRN ORAL Insomnia 01/10/18 18:15 01/17/18 18:14 Vancomycin HCl (Vanco rx to dose) 1 ea DAILY PRN MISC per rx protocol 01/10/18 19:30 02/09/18 19:29 Vancomycin HCl 1 gm/Dextrose 275 ml @ 183.708 mls/hr ONCE ONCE IVPB 01/12/18 21:00 01/12/18 22:29 Cira Ceja M.D. Jan 12, 2018 15:17
[2018-01-12 16:00] VITALS: BP 145/83
--- NOTE | 2018-01-12 17:15 | Consultation ---
DATE OF CONSULTATION: 01/12/2018 NEPHROLOGY CONSULTATION CONSULTING PHYSICIAN: Tessa Schwartz M.D. REFERRING PHYSICIAN: 1. Miles Lobo M.D. 2. Shahram Duong M.D. REASON FOR CONSULTATION: End-stage renal disease, need for dialysis. HISTORY OF PRESENT ILLNESS: The patient is a 52-year-old, male with past medical history significant for history of end-stage renal disease, anemia of chronic kidney disease, renal osteodystrophy on dialysis Tuesday, , and Tuesday, hypertension, history of peripheral vascular disease. Apparently at beginning of the month, he was found to have right foot ulceration for which the patient was admitted in the hospital and started on broad-spectrum antibiotics. Later on, the patient was transferred to [facility] for angiography. The patient from there was discharged home with IV antibiotics, received during dialysis apparently the patient back to emergency room with foul like discharge from the stump of right foot, got admitted to the hospital for further investigation. I was called for management of renal disease and electrolyte imbalance. PAST MEDICAL HISTORY: 1. History of end-stage renal disease. 2. Anemia of chronic kidney disease. 3. Renal osteodystrophy. 4. Hypertension. 5. Diabetes. 6. Peripheral vascular disease. 7. Noncompliant with diet and medication. PAST SURGICAL HISTORY: 1. History of transmetatarsal amputation of the right foot. 2. History of AV fistula. 3. History of PermCath placement. FAMILY HISTORY: Positive for history of diabetes. ALLERGIES: No known drug allergies. MEDICATIONS: List was reviewed. Medications at home includin. Amlodipine 10 mg daily. 2. Aspirin 81 mg p.o. daily. 3. Atorvastatin 80 mg p.o. daily. 4. . 5. Hydralazine 50 mg daily. 6. Isosorbide 30 mg daily. 7. Metoprolol 100 mg daily. 8. Renvela 800 mg p.o. daily. 9. Velphoro 500 mg p.o. daily. 10. Valsartan 160 mg daily. REVIEW OF SYSTEMS: GENERAL: He complained of generalized weakness. Denies any fever, chills, or night sweats. HEAD AND NECK: Denies any dysphagia, odynophagia, blurry vision, headache, or neck stiffness. PULMONARY: Mild shortness of breath. No cough or sputum. CARDIOVASCULAR: Denies any chest pain or palpitations. GASTROINTESTINAL: Denies any nausea, vomiting, diarrhea, hematemesis, or hematochezia. GENITOURINARY: Denies any dysuria or frequency. MUSCULOSKELETAL: Denies any weakness or numbness. PHYSICAL EXAMINATION: VITAL SIGNS: The patient has temperature of 98 degrees, blood pressure 170/90, pulse rate of 97, respiratory rate of 18. HEAD AND NECK: No JVP. No LAD. No thyromegaly. Extraocular movement intact. Pupils are reactive to light and accommodation. LUNGS: Clear to auscultation. CARDIAC: Regular rate and rhythm. S1 and S2. No murmur. No rub. ABDOMEN: Soft, nontender, and nondistended. No organomegaly. EXTREMITIES: Status post right metatarsal amputation. At this point, does not have any discharge. LABORATORY AND DIAGNOSTIC DATA: Most recent laboratory reveal WBC count of 5.6, hemoglobin of 9.5, hematocrit of 28, and platelet count of 326. Chemistry reveals sodium 133, potassium 4.4, chloride 95 , bicarb 32, BUN is 38, creatinine is 9.5, calcium 8.2, phosphorus of 4. AST of 9, ALT of 11, alkaline phosphatase of 127, albumin of 2.6. PT, PTT, and INR within normal limits. ASSESSMENT: 1. End-stage renal disease. 2. Anemia of chronic kidney disease. 3. Mild hyponatremia. 4. Renal osteodystrophy. At this time, phosphorus is within normal limits. 5. Peripheral vascular disease. 6. Status post right metatarsal amputation, recurrent infection, and osteomyelitis. 7. Uncontrolled diabetes. PLAN: Plan for the patient to receive a dialysis today. I would check the PTH for evaluation of renal osteodystrophy. I will continue with Epogen for anemia of chronic kidney disease. Continue with current antihypertensive medication. At the end, I would like to thank, Dr. Duong and Dr. Lobo for allowing me to participate in the care of this patient. Tessa Schwartz M.D. DR: Deedee JOB#: [id number] CC:
--- NOTE | 2018-01-12 18:02 | Internal Med Progress Note ---
Subjective Date of Service: Jan 12, 2018 Physician Name LashellMiles Attending Physician Shahram Duong MD Current Medications Medications (Trade) Dose Ordered Sig/Felix Route PRN Reason Start Time Stop Time Status Last Admin Dose Admin Acetaminophen (Tylenol) 650 mg Q4H PRN ORAL fever 01/10/18 18:15 02/09/18 18:14 Albuterol/ Ipratropium (Albuterol/ Ipratropium) 3 ml Q4H PRN HHN Shortness of Breath 01/10/18 18:15 01/15/18 18:14 Amlodipine Besylate (Norvasc) 5 mg DAILY ORAL 01/11/18 09:00 02/10/18 08:59 01/11/18 08:53 Aspirin (ASA) 81 mg DAILY ORAL 01/11/18 09:00 02/10/18 08:59 01/12/18 09:29 Atorvastatin Calcium (Lipitor) 10 mg BEDTIME ORAL 01/10/18 21:00 02/09/18 20:59 01/11/18 20:46 Cefepime HCl 500 mg/Dextrose 55 ml @ 110 mls/hr Q24H IVPB 01/11/18 21:00 01/18/18 20:59 01/11/18 20:46 Dextrose (Dextrose 50%) 25 ml Q30M PRN IV Hypoglycemia 01/10/18 18:15 02/09/18 18:14 Dextrose (Dextrose 50%) 50 ml Q30M PRN IV Hypoglycemia 01/10/18 18:30 02/09/18 18:29 Epoetin Daniel (Procrit (for ESRD on dialysis)) 7,000 units TUE-TUE-TUE SUBQ 01/13/18 21:00 02/12/18 20:59 Escitalopram Oxalate (Lexapro) 10 mg DAILY ORAL 01/11/18 09:00 02/10/18 08:59 01/12/18 09:29 Heparin Sodium (Porcine) (Heparin 5000 units/ml) 5,000 units EVERY 12 HOURS SUBQ 01/10/18 21:00 02/09/18 20:59 01/12/18 09:31 Hydralazine HCl (Apresoline) 50 mg EVERY 8 HOURS ORAL 01/10/18 22:00 02/09/18 21:59 01/12/18 06:17 Insulin Aspart (NovoLOG) BEFORE MEALS AND HS SUBQ 01/10/18 21:00 02/09/18 20:59 01/12/18 17:36 Metoprolol Succinate (Toprol XL) 200 mg DAILY ORAL 01/11/18 09:00 02/10/18 08:59 01/11/18 08:52 Morphine Sulfate (Morphine Sulfate) 2 mg Q4H PRN IVP Moderate Pain (Pain Scale 4-6) 01/10/18 18:15 01/17/18 18:14 Nitroglycerin (Ntg) 0.4 mg Q5M PRN SL Prn Chest Pain 01/10/18 18:15 02/09/18 18:14 Ondansetron HCl (Zofran) 4 mg Q6H PRN IVP Nausea & Vomiting 01/10/18 18:15 02/09/18 18:14 01/12/18 12:43 Polyethylene Glycol (Miralax) 17 gm DAILYPRN PRN ORAL Constipation 01/10/18 18:15 02/09/18 18:14 Pravastatin Sodium (Pravachol) 40 mg BEDTIME ORAL 01/10/18 21:00 02/09/18 20:59 01/11/18 20:46 Sevelamer Carbonate (Renvela) 800 mg THREE TIMES A DAY ORAL 01/11/18 09:00 02/10/18 08:59 01/12/18 17:30 Temazepam (Restoril) 15 mg HSPRN PRN ORAL Insomnia 01/10/18 18:15 01/17/18 18:14 Vancomycin HCl (Vanco rx to dose) 1 ea DAILY PRN MISC per rx protocol 01/10/18 19:30 02/09/18 19:29 Vancomycin HCl 1 gm/Dextrose 275 ml @ 183.708 mls/hr ONCE ONCE IVPB 01/12/18 21:00 01/12/18 22:29 Allergies: Coded Allergies: NO KNOWN ALLERGIES (Verified Allergy, Unknown, 12/04/17) ROS Limited/Unobtainable: No Constitutional: Reports: no symptoms HEENT: Reports: no symptoms Cardiovascular: Reports: no symptoms Respiratory: Reports: no symptoms Gastrointestinal/Abdominal: Reports: no symptoms Genitourinary: Reports: no symptoms Neurologic/Psychiatric: Reports: no symptoms Subjective 52 YO M admitted with chief complaint right foot pain. Now osteomyelitis. Cover for Int Med-Dr Duong Objective Last Vital Signs Date Time Temp Pulse Resp B/P (MAP) Pulse Ox O2 Delivery O2 Flow Rate FiO2 01/12/18 16:00 98.2 76 20 145/83 (103) 99 01/12/18 15:54 Room Air 01/12/18 07:19 21 General Appearance: WD/WN, no apparent distress, alert EENT: PERRL/EOMI, normal ENT inspection, TMs normal Neck: non-tender, normal alignment, supple, normal inspection Cardiovascular: normal peripheral pulses, normal rate, regular rhythm, no gallop/murmur, no JVD Respiratory/Chest: chest wall non-tender, lungs clear, normal breath sounds, no respiratory distress, no accessory muscle use Abdomen: normal bowel sounds, non tender, soft, no organomegaly, no mass Extremities: normal range of motion, other - right foot pain Edema: trace edema 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: 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 normal, no motor/sensory deficits Skin: normal pigmentation, warm/dry Laboratory Tests Test 01/12/18 04:00 White Blood Count 5.6 K/UL (4.8-10.8) Red Blood Count 3.01 M/UL (4.70-6.10) L Hemoglobin 9.5 G/DL (14.2-18.0) L Hematocrit 28.9 % (42.0-52.0) L Mean Corpuscular Volume 96 FL (80-99) Mean Corpuscular Hemoglobin 31.6 PG (27.0-31.0) H Mean Corpuscular Hemoglobin Concent 32.9 G/DL (32.0-36.0) Red Cell Distribution Width 15.3 % (11.6-14.8) H Platelet Count 326 K/UL (150-450) Mean Platelet Volume 5.5 FL (6.5-10.1) L Neutrophils (%) (Auto) 62.8 % (45.0-75.0) Lymphocytes (%) (Auto) 25.4 % (20.0-45.0) Monocytes (%) (Auto) 9.2 % (1.0-10.0) Eosinophils (%) (Auto) 2.0 % (0.0-3.0) Basophils (%) (Auto) 0.6 % (0.0-2.0) Erythrocyte Sedimentation Rate 112 MM/HR (0-15) H Sodium Level 133 MMOL/L (136-145) L Potassium Level 4.4 MMOL/L (3.5-5.1) Chloride Level 95 MMOL/L (98-107) L Carbon Dioxide Level 32 MMOL/L (21-32) Anion Gap 6 mmol/L (5-15) Blood Urea Nitrogen 38 mg/dL (7-18) H Creatinine 9.5 MG/DL (0.55-1.30) H Estimat Glomerular Filtration Rate 7.2 mL/min (>60) Glucose Level 212 MG/DL (74-106) H Calcium Level 8.2 MG/DL (8.5-10.1) L Phosphorus Level 4.0 MG/DL (2.5-4.9) Magnesium Level 2.3 MG/DL (1.8-2.4) Total Bilirubin 0.4 MG/DL (0.2-1.0) Aspartate Amino Transf (AST/SGOT) 9 U/L (15-37) L Alanine Aminotransferase (ALT/SGPT) 11 U/L (12-78) L Alkaline Phosphatase 127 U/L (46-116) H Total Protein 7.5 G/DL (6.4-8.2) Albumin 2.6 G/DL (3.4-5.0) L Globulin 4.9 g/dL Albumin/Globulin Ratio 0.5 (1.0-2.7) L Random Vancomycin Level 19.6 ug/mL Microbiology Date/Time Source Procedure Growth Status 01/10/18 19:10 Nasal Nares MRSA Culture - Final NO METHICILLIN RESISTANT STAPH AUREUS... Complete 01/10/18 22:00 Foot Right Gram Stain - Final Resulted 01/10/18 22:00 Wound Culture - Preliminary Gram Negative Bacillus 1 Resulted 01/10/18 19:10 Rectum VRE Culture - Final NO VANCOMYCIN RESISTANT ENTEROCOCCUS ... Complete 01/10/18 19:10 Rectum - Final NO CARBAPENEM-RESISTANT ENTEROBACTERI... Complete Intake and Output 01/11/18 01/12/18 19:00 07:00 Intake Total 760 ml 255 ml Balance 760 ml 255 ml Intake Oral 760 ml 200 ml IV Total 55 ml # Voids 3 3 # Bowel Movements 1 Assessment/Plan Problem List: (1) Right foot pain (2) Acute osteomyelitis of metatarsal bone of right foot Assessment & Plan: Non surgical-see podiatry note. Continue cefepime and vanco. Will require Antibiotics for 6 weeks per ID note (3) Diabetes mellitus Assessment & Plan: Continue insulin sliding scale. (4) ESRD (end stage renal disease) Assessment & Plan: See nephrology note. Hemodialysis 01/12/18 (5) HTN (hypertension) Assessment & Plan: continue hydralazine, metoprolol and norvasc. Status: progressing Miles Lobo MD Jan 12, 2018 18:02
[2018-01-12 20:39] VITALS: BP 145/77
[2018-01-12] MEDS: Cefepime 500mg in D5W 55ml IVPB SCH (20:51)
[2018-01-12] MEDS ORDERED: Vancomycin 1gm/D5W 275ml IVPB ONE ×2 (21:00)
[2018-01-13] VITALS (7 sets, daily range): BP systolic 103–153; BP diastolic 50–102
[2018-01-13] MEDS: NovoLOG Insulin Flexpen SUBQ SCH ×4 (05:30→21:10)
[2018-01-13] MEDS: HydrALAZINE 50mg tab ORAL SCH ×3 (05:30→21:47)
[2018-01-13 06:45] LABS: ALANINE AMINOTRANSFERASE 11 U/L (12-78); ALBUMIN 2.7 G/DL (3.4-5.0); ALBUMIN/GLOBULIN RATIO 0.5 (1.0-2.7); ALKALINE PHOSPHATASE 127 U/L (46-116); ANION GAP 9 mmol/L (5-15); ASPARTATE AMINO TRANSFERASE 11 U/L (15-37); BILIRUBIN,TOTAL 0.5 MG/DL (0.2-1.0); BLOOD UREA NITROGEN 29 mg/dL (7-18); CALCIUM 8.6 MG/DL (8.5-10.1); CARBON DIOXIDE 29 MMOL/L (21-32); CHLORIDE 96 MMOL/L (98-107); CREATININE 8.5 MG/DL (0.55-1.30); PHOSPHORUS 4.2 MG/DL (2.5-4.9); POTASSIUM 4.6 MMOL/L (3.5-5.1); SODIUM 134 MMOL/L (136-145)
[2018-01-13 06:46] LABS: BASOPHILS % (AUTO) 1.3 % (0.0-2.0); EOSINOPHILS % (AUTO) 2.3 % (0.0-3.0); HEMATOCRIT 34.1 % (42.0-52.0); HEMOGLOBIN 10.9 G/DL (14.2-18.0); LYMPHOCYTES % (AUTO) 21.9 % (20.0-45.0); MEAN CORPUSCULAR VOLUME 99 FL (80-99); MONOCYTES % (AUTO) 9.9 % (1.0-10.0); NEUTROPHILS % (AUTO) 64.7 % (45.0-75.0); PLATELET COUNT 318 K/UL (150-450); RED BLOOD COUNT 3.45 M/UL (4.70-6.10); RED CELL DISTRIBUTION WIDTH 15.7 % (11.6-14.8); WHITE BLOOD COUNT 5.9 K/UL (4.8-10.8)
[2018-01-13] MEDS: Metoprolol Succinate XL 100mg tab ORAL SCH (09:23)
[2018-01-13] MEDS: Aspirin Baby 81mg ORAL SCH (09:23)
[2018-01-13] MEDS: Renvela 800mg Pkt ORAL SCH ×3 (09:23→17:29)
[2018-01-13] MEDS: Heparin 5000 units/ml inj SUBQ SCH ×2 (09:25→20:17)
[2018-01-13] MEDS ORDERED: Tubing IV Secondary IV ONE (10:25)
[2018-01-13] MEDS ORDERED: D5W 275ml ONE (10:25)
--- NOTE | 2018-01-13 11:34 | Nephrology Progress Note ---
Assessment/Plan Assessment 1.ESRD 2.Anemia of ckd 3.ASHLEY 4.PVD 5.HTN 6.None healing foot ulcer Plan dialysis as schedule continue epogen monitoring phos iv anabiotic Subjective Constitutional: Reports: no symptoms HEENT: Reports: no symptoms Genitourinary: Reports: no symptoms Neurologic/Psychiatric: Reports: no symptoms Objective Objective Last 24 Hour Vital Signs Date Time Temp Pulse Resp B/P (MAP) Pulse Ox O2 Delivery O2 Flow Rate FiO2 01/13/18 09:24 87 136/89 01/13/18 09:23 87 136/89 01/13/18 09:00 Room Air 01/13/18 08:00 96.1 87 16 136/89 (105) 99 01/13/18 07:37 76 16 Room Air 21 01/13/18 05:30 142/84 01/13/18 04:10 97.7 90 18 142/84 (103) 99 01/13/18 02:06 142/100 (114) 01/13/18 01:11 98.1 01/13/18 00:35 98.1 87 18 153/102 (119) 98 01/12/18 21:05 145/77 01/12/18 20:39 Room Air 01/12/18 20:39 98.4 87 18 145/77 (99) 99 01/12/18 18:50 79 18 Room Air 21 01/12/18 16:00 98.2 76 20 145/83 (103) 99 01/12/18 15:54 Room Air 01/12/18 13:43 Room Air 01/12/18 12:00 98.3 79 20 147/70 (95) 99 Intake and Output 01/12/18 01/13/18 19:00 07:00 Intake Total 600 ml 570.000 ml Output Total 4000 ml Balance -3400 ml 570.000 ml Intake Oral 600 ml 240 ml IV Total 330.000 ml Hemodialysis UF 4000 ml # Voids 3 1 Laboratory Tests 01/13/18 05:35: White Blood Count 5.9, Red Blood Count 3.45L, Hemoglobin 10.9L, Hematocrit 34.1L , Mean Corpuscular Volume 99, Mean Corpuscular Hemoglobin 31.6H, Mean Corpuscular Hemoglobin Concent 31.9L, Red Cell Distribution Width 15.7H, Platelet Count 318, Mean Platelet Volume 6.0L, Neutrophils (%) (Auto) 64.7, Lymphocytes (%) (Auto) 21.9, Monocytes (%) (Auto) 9.9, Eosinophils (%) (Auto) 2.3, Basophils (%) (Auto) 1.3, Sodium Level 134L, Potassium Level 4.6, Chloride Level 96L, Carbon Dioxide Level 29, Anion Gap 9, Blood Urea Nitrogen 29H, Creatinine 8.5H, Estimat Glomerular Filtration Rate 8.1, Glucose Level 178H, Calcium Level 8.6, Phosphorus Level 4.2, Magnesium Level 2.3, Total Bilirubin 0.5, Aspartate Amino Transf (AST/SGOT) 11L, Alanine Aminotransferase (ALT/SGPT) 11L, Alkaline Phosphatase 127H, Total Protein 8.0, Albumin 2.7L, Globulin 5.3, Albumin/Globulin Ratio 0.5L Height (Feet): 6 Height (Inches): 0.00 Weight (Pounds): 193 Objective General Appearance: WD/WN, no acute distress HEENT: normocephalic, atraumatic, anicteric, mucous membranes moist, PERRL, EOMI, pharynx normal, supple, no JVD Respiratory/Chest: chest wall non-tender, lungs clear, normal breath sounds, no respiratory distress, no accessory muscle use Cardiovascular: normal peripheral pulses, normal rate, regular rhythm, no gallop/murmur, no JVD Abdomen: normal bowel sounds, soft, non tender, no organomegaly, non distended , no mass, no scars Genitourinary: normal external genitalia Extremities: no cyanosis, no clubbing Skin: no rash, no lesions, ulcers, other - right stump wound with open skin draining serosanginous fluids Neurologic/Psychiatric: alert, oriented x 3, responsive Lymphatic: no neck adenopathy, no groin adenopathy Musculoskeletal: normal muscle bulk, no effusion Tessa Schwartz MD Jan 13, 2018 11:34
--- NOTE | 2018-01-13 12:01 | Pulmonology Progress Note ---
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 electrolytes dc planning Subjective ROS Limited/Unobtainable: No Constitutional: Reports: no symptoms HEENT: Repors: no symptoms Respiratory: Reports: no symptoms Allergies: Coded Allergies: NO KNOWN ALLERGIES (Verified Allergy, Unknown, 12/04/17) Objective Last 24 Hour Vital Signs Date Time Temp Pulse Resp B/P (MAP) Pulse Ox O2 Delivery O2 Flow Rate FiO2 01/13/18 09:24 87 136/89 01/13/18 09:23 87 136/89 01/13/18 09:00 Room Air 01/13/18 08:00 96.1 87 16 136/89 (105) 99 01/13/18 07:37 76 16 Room Air 21 01/13/18 05:30 142/84 01/13/18 04:10 97.7 90 18 142/84 (103) 99 01/13/18 02:06 142/100 (114) 01/13/18 01:11 98.1 01/13/18 00:35 98.1 87 18 153/102 (119) 98 01/12/18 21:05 145/77 01/12/18 20:39 Room Air 01/12/18 20:39 98.4 87 18 145/77 (99) 99 01/12/18 18:50 79 18 Room Air 21 01/12/18 16:00 98.2 76 20 145/83 (103) 99 01/12/18 15:54 Room Air 01/12/18 13:43 Room Air Intake and Output 01/12/18 01/13/18 19:00 07:00 Intake Total 600 ml 570.000 ml Output Total 4000 ml Balance -3400 ml 570.000 ml Intake Oral 600 ml 240 ml IV Total 330.000 ml Hemodialysis UF 4000 ml # Voids 3 1 General Appearance: WD/WN HEENT: normocephalic, anicteric Respiratory/Chest: chest wall non-tender, lungs clear, normal breath sounds Cardiovascular: normal peripheral pulses, normal rate Abdomen: normal bowel sounds, soft, non tender Extremities: no cyanosis Skin: no rash Neurologic/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 Complete 01/10/18 22:00 Foot Right Gram Stain - Final Resulted 01/10/18 22:00 Wound Culture - Preliminary Serratia Marcescens YEAST Resulted 01/10/18 19:10 Rectum VRE Culture - Final NO VANCOMYCIN RESISTANT ENTEROCOCCUS ... Complete 01/10/18 19:10 Rectum - Final NO CARBAPENEM-RESISTANT ENTEROBACTERI... Complete Laboratory Tests 01/13/18 05:35: White Blood Count 5.9, Red Blood Count 3.45L, Hemoglobin 10.9L, Hematocrit 34.1L , Mean Corpuscular Volume 99, Mean Corpuscular Hemoglobin 31.6H, Mean Corpuscular Hemoglobin Concent 31.9L, Red Cell Distribution Width 15.7H, Platelet Count 318, Mean Platelet Volume 6.0L, Neutrophils (%) (Auto) 64.7, Lymphocytes (%) (Auto) 21.9, Monocytes (%) (Auto) 9.9, Eosinophils (%) (Auto) 2.3, Basophils (%) (Auto) 1.3, Sodium Level 134L, Potassium Level 4.6, Chloride Level 96L, Carbon Dioxide Level 29, Anion Gap 9, Blood Urea Nitrogen 29H, Creatinine 8.5H, Estimat Glomerular Filtration Rate 8.1, Glucose Level 178H, Calcium Level 8.6, Phosphorus Level 4.2, Magnesium Level 2.3, Total Bilirubin 0.5, Aspartate Amino Transf (AST/SGOT) 11L, Alanine Aminotransferase (ALT/SGPT) 11L, Alkaline Phosphatase 127H, Total Protein 8.0, Albumin 2.7L, Globulin 5.3, Albumin/Globulin Ratio 0.5L Current Medications Medications (Trade) Dose Ordered Sig/Felix Route PRN Reason Start Time Stop Time Status Last Admin Dose Admin Acetaminophen (Tylenol) 650 mg Q4H PRN ORAL fever 01/10/18 18:15 02/09/18 18:14 Albuterol/ Ipratropium (Albuterol/ Ipratropium) 3 ml Q4H PRN HHN Shortness of Breath 01/10/18 18:15 01/15/18 18:14 Amlodipine Besylate (Norvasc) 5 mg DAILY ORAL 01/11/18 09:00 02/10/18 08:59 01/13/18 09:24 Aspirin (ASA) 81 mg DAILY ORAL 01/11/18 09:00 02/10/18 08:59 01/13/18 09:23 Atorvastatin Calcium (Lipitor) 10 mg BEDTIME ORAL 01/10/18 21:00 02/09/18 20:59 01/12/18 21:05 Cefepime HCl 500 mg/Dextrose 55 ml @ 110 mls/hr Q24H IVPB 01/11/18 21:00 01/18/18 20:59 01/12/18 20:51 Dextrose (Dextrose 50%) 25 ml Q30M PRN IV Hypoglycemia 01/10/18 18:15 02/09/18 18:14 Dextrose (Dextrose 50%) 50 ml Q30M PRN IV Hypoglycemia 01/10/18 18:30 02/09/18 18:29 Epoetin Daniel (Procrit (for ESRD on dialysis)) 7,000 units MON-WED-TUE SUBQ 01/13/18 21:00 02/12/18 20:59 Escitalopram Oxalate (Lexapro) 10 mg DAILY ORAL 01/11/18 09:00 02/10/18 08:59 01/13/18 09:24 Heparin Sodium (Porcine) (Heparin 5000 units/ml) 5,000 units EVERY 12 HOURS SUBQ 01/10/18 21:00 02/09/18 20:59 01/13/18 09:25 Hydralazine HCl (Apresoline) 50 mg EVERY 8 HOURS ORAL 01/10/18 22:00 02/09/18 21:59 01/13/18 05:30 Insulin Aspart (NovoLOG) BEFORE MEALS AND HS SUBQ 01/10/18 21:00 02/09/18 20:59 01/13/18 05:30 Metoprolol Succinate (Toprol XL) 200 mg DAILY ORAL 01/11/18 09:00 02/10/18 08:59 01/13/18 09:23 Morphine Sulfate (Morphine Sulfate) 2 mg Q4H PRN IVP Moderate Pain (Pain Scale 4-6) 01/10/18 18:15 01/17/18 18:14 01/13/18 00:41 Nitroglycerin (Ntg) 0.4 mg Q5M PRN SL Prn Chest Pain 01/10/18 18:15 02/09/18 18:14 Ondansetron HCl (Zofran) 4 mg Q6H PRN IVP Nausea & Vomiting 01/10/18 18:15 02/09/18 18:14 01/12/18 12:43 Polyethylene Glycol (Miralax) 17 gm DAILYPRN PRN ORAL Constipation 01/10/18 18:15 02/09/18 18:14 Pravastatin Sodium (Pravachol) 40 mg BEDTIME ORAL 01/10/18 21:00 02/09/18 20:59 01/12/18 21:06 Sevelamer Carbonate (Renvela) 800 mg THREE TIMES A DAY ORAL 01/11/18 09:00 02/10/18 08:59 01/13/18 09:23 Temazepam (Restoril) 15 mg HSPRN PRN ORAL Insomnia 01/10/18 18:15 01/17/18 18:14 Vancomycin HCl (Vanco rx to dose) 1 ea DAILY PRN MISC per rx protocol 01/10/18 19:30 02/09/18 19:29 Jorge Anaya MD Jan 13, 2018 12:01
--- NOTE | 2018-01-13 13:41 | Podiatric Progress Note ---
Assessment/Plan Patient Mahsa Claire is a 52 year old male who was admitted on Jan 10, 2018 at 17: 46 with Assessment/Plan Assessment/Plan Patient Mahsa Claire is a 52 year old male who was admitted on Jan 10, 2018 at 17: 46 with Assessment/Plan A/ 1) Infected DM foot ulcer right foot 2) Osteomyelitis right foot 3) PAD 4) DM neuropathy and uncontrolled 5) ESRD 6) Noncompliant 7) Encephalopathy P/ 1) Cont wound care. Wound vac order submitted. Will be applied by wound care team at bedside. Keep continuously running. 2) D/W ID, abx per ID 3) Requires strict glycemic control for optimal wound healing 4) Recommend SNF placement for advanced wound care, glycemic control, abx management. 5) Excisional debridement performed at bedside, pt informed consent obtained. Fibrotic tissue removed, bleeding was noted post debridement. Hemostasis noted with dressing. 6 Will follow Subjective ROS Limited/Unobtainable: No Reason for consult Pt is s/p TMA , seen at bedside for surgical site debridement. Pt doing well, relates minimal pain to RLE. Denies any constitutional symptoms. Procedure Performed Pt was consented at bedside for Right surgical site excisional debridement and removal of all non-viable tissue. Pt informed of risks and benefits, informed consent obtained. Constitutional: no symptoms Allergies: Coded Allergies: NO KNOWN ALLERGIES (Verified Allergy, Unknown, 12/04/17) All Systems: reviewed and negative except above Subjective Right foot surgical site: - Medial 1/2 incision intact with mile. - Lateral 1/2 incision dehiscence with fibrotic tissue at marin-incision margins and deep tissue. - No acute SOI. Objective Exam Last 24 Hour Vital Signs Date Time Temp Pulse Resp B/P (MAP) Pulse Ox O2 Delivery O2 Flow Rate FiO2 01/13/18 12:00 98.2 84 16 131/89 (103) 100 01/13/18 09:24 87 136/89 01/13/18 09:23 87 136/89 01/13/18 09:00 Room Air 01/13/18 08:00 96.1 87 16 136/89 (105) 99 01/13/18 07:37 76 16 Room Air 21 01/13/18 05:30 142/84 01/13/18 04:10 97.7 90 18 142/84 (103) 99 01/13/18 02:06 142/100 (114) 01/13/18 01:11 98.1 01/13/18 00:35 98.1 87 18 153/102 (119) 98 01/12/18 21:05 145/77 01/12/18 20:39 Room Air 01/12/18 20:39 98.4 87 18 145/77 (99) 99 01/12/18 18:50 79 18 Room Air 21 01/12/18 16:00 98.2 76 20 145/83 (103) 99 01/12/18 15:54 Room Air 01/12/18 13:43 Room Air Laboratory Tests Test 01/13/18 05:35 White Blood Count 5.9 K/UL (4.8-10.8) Red Blood Count 3.45 M/UL (4.70-6.10) L Hemoglobin 10.9 G/DL (14.2-18.0) L Hematocrit 34.1 % (42.0-52.0) L Mean Corpuscular Volume 99 FL (80-99) Mean Corpuscular Hemoglobin 31.6 PG (27.0-31.0) H Mean Corpuscular Hemoglobin Concent 31.9 G/DL (32.0-36.0) L Red Cell Distribution Width 15.7 % (11.6-14.8) H Platelet Count 318 K/UL (150-450) Mean Platelet Volume 6.0 FL (6.5-10.1) L Neutrophils (%) (Auto) 64.7 % (45.0-75.0) Lymphocytes (%) (Auto) 21.9 % (20.0-45.0) Monocytes (%) (Auto) 9.9 % (1.0-10.0) Eosinophils (%) (Auto) 2.3 % (0.0-3.0) Basophils (%) (Auto) 1.3 % (0.0-2.0) Sodium Level 134 MMOL/L (136-145) L Potassium Level 4.6 MMOL/L (3.5-5.1) Chloride Level 96 MMOL/L (98-107) L Carbon Dioxide Level 29 MMOL/L (21-32) Anion Gap 9 mmol/L (5-15) Blood Urea Nitrogen 29 mg/dL (7-18) H Creatinine 8.5 MG/DL (0.55-1.30) H Estimat Glomerular Filtration Rate 8.1 mL/min (>60) Glucose Level 178 MG/DL (74-106) H Calcium Level 8.6 MG/DL (8.5-10.1) Phosphorus Level 4.2 MG/DL (2.5-4.9) Magnesium Level 2.3 MG/DL (1.8-2.4) Total Bilirubin 0.5 MG/DL (0.2-1.0) Aspartate Amino Transf (AST/SGOT) 11 U/L (15-37) L Alanine Aminotransferase (ALT/SGPT) 11 U/L (12-78) L Alkaline Phosphatase 127 U/L (46-116) H Total Protein 8.0 G/DL (6.4-8.2) Albumin 2.7 G/DL (3.4-5.0) L Globulin 5.3 g/dL Albumin/Globulin Ratio 0.5 (1.0-2.7) L Microbiology Date/Time Source Procedure Growth Status 01/11/18 14:15 Blood Blood Culture - Preliminary NO GROWTH AFTER 24 HOURS Resulted 01/10/18 19:10 Nasal Nares MRSA Culture - Final NO METHICILLIN RESISTANT STAPH AUREUS... Complete 01/10/18 22:00 Foot Right Gram Stain - Final Resulted 01/10/18 22:00 Wound Culture - Preliminary Serratia Marcescens YEAST Resulted Azar Mensah DPM Jan 13, 2018 13:41
--- NOTE | 2018-01-13 14:58 | Internal Med Progress Note ---
Subjective Physician Name Shahram Duong Attending Physician Shahram Duong MD Current Medications Medications (Trade) Dose Ordered Sig/Felix Route PRN Reason Start Time Stop Time Status Last Admin Dose Admin Acetaminophen (Tylenol) 650 mg Q4H PRN ORAL fever 01/10/18 18:15 02/09/18 18:14 Albuterol/ Ipratropium (Albuterol/ Ipratropium) 3 ml Q4H PRN HHN Shortness of Breath 01/10/18 18:15 01/15/18 18:14 Amlodipine Besylate (Norvasc) 5 mg DAILY ORAL 01/11/18 09:00 02/10/18 08:59 01/13/18 09:24 Aspirin (ASA) 81 mg DAILY ORAL 01/11/18 09:00 02/10/18 08:59 01/13/18 09:23 Atorvastatin Calcium (Lipitor) 10 mg BEDTIME ORAL 01/10/18 21:00 02/09/18 20:59 01/12/18 21:05 Cefepime HCl 500 mg/Dextrose 55 ml @ 110 mls/hr Q24H IVPB 01/11/18 21:00 01/18/18 20:59 01/12/18 20:51 Dextrose (Dextrose 50%) 25 ml Q30M PRN IV Hypoglycemia 01/10/18 18:15 02/09/18 18:14 Dextrose (Dextrose 50%) 50 ml Q30M PRN IV Hypoglycemia 01/10/18 18:30 02/09/18 18:29 Epoetin Daniel (Procrit (for ESRD on dialysis)) 7,000 units TUE-TUE-TUE SUBQ 01/13/18 21:00 02/12/18 20:59 Escitalopram Oxalate (Lexapro) 10 mg DAILY ORAL 01/11/18 09:00 02/10/18 08:59 01/13/18 09:24 Heparin Sodium (Porcine) (Heparin 5000 units/ml) 5,000 units EVERY 12 HOURS SUBQ 01/10/18 21:00 02/09/18 20:59 01/13/18 09:25 Hydralazine HCl (Apresoline) 50 mg EVERY 8 HOURS ORAL 01/10/18 22:00 02/09/18 21:59 01/13/18 13:40 Insulin Aspart (NovoLOG) BEFORE MEALS AND HS SUBQ 01/10/18 21:00 02/09/18 20:59 01/13/18 12:27 Metoprolol Succinate (Toprol XL) 200 mg DAILY ORAL 01/11/18 09:00 02/10/18 08:59 01/13/18 09:23 Morphine Sulfate (Morphine Sulfate) 2 mg Q4H PRN IVP Moderate Pain (Pain Scale 4-6) 01/10/18 18:15 01/17/18 18:14 01/13/18 00:41 Nitroglycerin (Ntg) 0.4 mg Q5M PRN SL Prn Chest Pain 01/10/18 18:15 02/09/18 18:14 Ondansetron HCl (Zofran) 4 mg Q6H PRN IVP Nausea & Vomiting 01/10/18 18:15 02/09/18 18:14 01/12/18 12:43 Polyethylene Glycol (Miralax) 17 gm DAILYPRN PRN ORAL Constipation 01/10/18 18:15 02/09/18 18:14 Pravastatin Sodium (Pravachol) 40 mg BEDTIME ORAL 01/10/18 21:00 02/09/18 20:59 01/12/18 21:06 Sevelamer Carbonate (Renvela) 800 mg THREE TIMES A DAY ORAL 01/11/18 09:00 02/10/18 08:59 01/13/18 13:40 Temazepam (Restoril) 15 mg HSPRN PRN ORAL Insomnia 01/10/18 18:15 01/17/18 18:14 Vancomycin HCl (Vanco rx to dose) 1 ea DAILY PRN MISC per rx protocol 01/10/18 19:30 02/09/18 19:29 Allergies: Coded Allergies: NO KNOWN ALLERGIES (Verified Allergy, Unknown, 12/04/17) Subjective awake, alert, responsive, dialysis today. Objective Last Vital Signs Date Time Temp Pulse Resp B/P (MAP) Pulse Ox O2 Delivery O2 Flow Rate FiO2 01/13/18 13:40 131/89 01/13/18 12:00 98.2 84 16 100 01/13/18 09:00 Room Air 01/13/18 07:37 21 Laboratory Tests Test 01/13/18 05:35 White Blood Count 5.9 K/UL (4.8-10.8) Red Blood Count 3.45 M/UL (4.70-6.10) L Hemoglobin 10.9 G/DL (14.2-18.0) L Hematocrit 34.1 % (42.0-52.0) L Mean Corpuscular Volume 99 FL (80-99) Mean Corpuscular Hemoglobin 31.6 PG (27.0-31.0) H Mean Corpuscular Hemoglobin Concent 31.9 G/DL (32.0-36.0) L Red Cell Distribution Width 15.7 % (11.6-14.8) H Platelet Count 318 K/UL (150-450) Mean Platelet Volume 6.0 FL (6.5-10.1) L Neutrophils (%) (Auto) 64.7 % (45.0-75.0) Lymphocytes (%) (Auto) 21.9 % (20.0-45.0) Monocytes (%) (Auto) 9.9 % (1.0-10.0) Eosinophils (%) (Auto) 2.3 % (0.0-3.0) Basophils (%) (Auto) 1.3 % (0.0-2.0) Sodium Level 134 MMOL/L (136-145) L Potassium Level 4.6 MMOL/L (3.5-5.1) Chloride Level 96 MMOL/L (98-107) L Carbon Dioxide Level 29 MMOL/L (21-32) Anion Gap 9 mmol/L (5-15) Blood Urea Nitrogen 29 mg/dL (7-18) H Creatinine 8.5 MG/DL (0.55-1.30) H Estimat Glomerular Filtration Rate 8.1 mL/min (>60) Glucose Level 178 MG/DL (74-106) H Calcium Level 8.6 MG/DL (8.5-10.1) Phosphorus Level 4.2 MG/DL (2.5-4.9) Magnesium Level 2.3 MG/DL (1.8-2.4) Total Bilirubin 0.5 MG/DL (0.2-1.0) Aspartate Amino Transf (AST/SGOT) 11 U/L (15-37) L Alanine Aminotransferase (ALT/SGPT) 11 U/L (12-78) L Alkaline Phosphatase 127 U/L (46-116) H Total Protein 8.0 G/DL (6.4-8.2) Albumin 2.7 G/DL (3.4-5.0) L Globulin 5.3 g/dL Albumin/Globulin Ratio 0.5 (1.0-2.7) L Microbiology Date/Time Source Procedure Growth Status 01/11/18 14:15 Blood Blood Culture - Preliminary NO GROWTH AFTER 24 HOURS Resulted 01/11/18 14:00 Blood Blood Culture - Preliminary NO GROWTH AFTER 24 HOURS Resulted 01/10/18 19:10 Nasal Nares MRSA Culture - Final NO METHICILLIN RESISTANT STAPH AUREUS... Complete 01/10/18 22:00 Foot Right Gram Stain - Final Resulted 01/10/18 22:00 Wound Culture - Preliminary Serratia Marcescens YEAST Resulted 01/10/18 19:10 Rectum VRE Culture - Final NO VANCOMYCIN RESISTANT ENTEROCOCCUS ... Complete 01/10/18 19:10 Rectum - Final NO CARBAPENEM-RESISTANT ENTEROBACTERI... Complete Intake and Output 01/12/18 01/13/18 19:00 07:00 Intake Total 600 ml 570.000 ml Output Total 4000 ml Balance -3400 ml 570.000 ml Intake Oral 600 ml 240 ml IV Total 330.000 ml Hemodialysis UF 4000 ml # Voids 3 1 Objective General: No acute distress, awake and alert HEENT: NCAT, sclera anicteric, PERRL, EOMI. Neck: Supple, no significant jugular venous distention, Lungs: Good inspiratory effort, , clear to auscultation bilaterally, no Wheeze or Rales. Heart: Regular rate and rhythm, normal S1/S2, no murmurs Abdomen: soft, nontender, nondistended. Normoactive bowel sounds. Extremities: No Cyanosis , clubbing or edema. Neuro: A&O x 3, Able to move all extremities, right foot stump wound Vac. RUE AVF intact. Skin: warm, no rashes or lesions Psych: Normal mood and affect Assessment/Plan Assessment/Plan (1) Right foot pain (2) Acute osteomyelitis of metatarsal bone of right foot Assessment & Plan: Non surgical-see podiatry note. Continue cefepime and vanco. Will require Antibiotics for 6 weeks per ID note (3) Diabetes mellitus Assessment & Plan: Continue insulin sliding scale. (4) ESRD (end stage renal disease) Assessment & Plan: See nephrology note. Hemodialysis 01/12/18 (5) HTN (hypertension) Assessment & Plan: continue hydralazine, metoprolol and Norvasc. (6) Anemia of CKD. Plan: wound care Abx: Cefepime and Vanco DC planning to SNF full code. Shahram Duong MD Jan 13, 2018 14:58
--- NOTE | 2018-01-13 15:44 | Infectious Diseases Prog Note ---
Assessment/Plan Problems: (1) Acute osteomyelitis of metatarsal bone of right foot Assessment & Plan: previously grew MSSA , providenciae rettgeri and proteus mirabilis, underwent revision of his right stump wound after revascularization at [facility] . was discharged on meropenem and cefazoline for 6 weeks . unclear whether he was receiving any antibiotics at the HD center . MRI of the right foot now showed possible distal metatarsal bones osteomyelitis , and wound culture grew serratia marcescens and yeast , continue vancomycin and cefepime for 6 weeks with HD in supervised environment such as SNF to ensure receiving antibiotics since he is noncompliant, appreciate bead wrapper input . add fluconazole to cover yeast (2) Ulcer of amputation stump of foot Assessment & Plan: with purulent discharge , and possible under lying osteomyelitis, continue wide spectrum antibiotics for 6 weeks course of treatment . (3) Sepsis Assessment & Plan: due to the above, blood culture remains negative , continue wide spectrum antibiotics (4) Diabetes mellitus Assessment & Plan: recommend tight glycemic control to keep blood glucose between 100-140 (5) ESRD (end stage renal disease) Assessment & Plan: on HD renal service is following Subjective Constitutional: Reports: no symptoms HEENT: Reports: no symptoms Respiratory: Reports: no symptoms Breasts: Reports: no symptoms Cardiovascular: Reports: no symptoms Gastrointestinal/Abdominal: Reports: no symptoms Genitourinary: Reports: no symptoms Neurologic: Reports: no symptoms Psychiatric: Reports: no symptoms Skin: Reports: no symptoms Endocrine: Reports: no symptoms Hematologic: Reports: no symptoms Musculoskeletal: Reports: no symptoms Allergies: Coded Allergies: NO KNOWN ALLERGIES (Verified Allergy, Unknown, 12/04/17) Subjective he was comfortable lying in bed, getting hemodialysis. Objective Vital Signs Last 24 Hour Vital Signs Date Time Temp Pulse Resp B/P (MAP) Pulse Ox O2 Delivery O2 Flow Rate FiO2 01/13/18 13:40 131/89 01/13/18 12:00 98.2 84 16 131/89 (103) 100 01/13/18 09:24 87 136/89 01/13/18 09:23 87 136/89 01/13/18 09:00 Room Air 01/13/18 08:00 96.1 87 16 136/89 (105) 99 01/13/18 07:37 76 16 Room Air 21 01/13/18 05:30 142/84 01/13/18 04:10 97.7 90 18 142/84 (103) 99 01/13/18 02:06 142/100 (114) 01/13/18 01:11 98.1 01/13/18 00:35 98.1 87 18 153/102 (119) 98 01/12/18 21:05 145/77 01/12/18 20:39 Room Air 01/12/18 20:39 98.4 87 18 145/77 (99) 99 01/12/18 18:50 79 18 Room Air 21 01/12/18 16:00 98.2 76 20 145/83 (103) 99 01/12/18 15:54 Room Air Height (Feet): 6 Height (Inches): 0.00 Weight (Pounds): 193 General Appearance: WD/WN, no acute distress HEENT: normocephalic, atraumatic, anicteric, mucous membranes moist, PERRL Respiratory/Chest: chest wall non-tender, lungs clear, normal breath sounds, no respiratory distress, no accessory muscle use Cardiovascular: normal peripheral pulses, normal rate, regular rhythm, no gallop/murmur, no JVD Abdomen: normal bowel sounds, soft, non tender, no organomegaly, non distended , no mass, no scars Extremities: no cyanosis, no clubbing, other - right foot stump wound Skin: no rash, no lesions, no ulcers Neurologic/Psychiatric: alert, oriented x 3, responsive Lymphatic: no neck adenopathy, no groin adenopathy Musculoskeletal: normal muscle bulk, no effusion Microbiology Date/Time Source Procedure Growth Status 01/11/18 14:15 Blood Blood Culture - Preliminary NO GROWTH AFTER 24 HOURS Resulted 01/11/18 14:00 Blood Blood Culture - Preliminary NO GROWTH AFTER 24 HOURS Resulted 01/10/18 19:10 Nasal Nares MRSA Culture - Final NO METHICILLIN RESISTANT STAPH AUREUS... Complete 01/10/18 22:00 Foot Right Gram Stain - Final Resulted 01/10/18 22:00 Wound Culture - Preliminary Serratia Marcescens YEAST Resulted 01/10/18 19:10 Rectum VRE Culture - Final NO VANCOMYCIN RESISTANT ENTEROCOCCUS ... Complete 01/10/18 19:10 Rectum - Final NO CARBAPENEM-RESISTANT ENTEROBACTERI... Complete Laboratory Tests Test 01/13/18 05:35 White Blood Count 5.9 K/UL (4.8-10.8) Red Blood Count 3.45 M/UL (4.70-6.10) L Hemoglobin 10.9 G/DL (14.2-18.0) L Hematocrit 34.1 % (42.0-52.0) L Mean Corpuscular Volume 99 FL (80-99) Mean Corpuscular Hemoglobin 31.6 PG (27.0-31.0) H Mean Corpuscular Hemoglobin Concent 31.9 G/DL (32.0-36.0) L Red Cell Distribution Width 15.7 % (11.6-14.8) H Platelet Count 318 K/UL (150-450) Mean Platelet Volume 6.0 FL (6.5-10.1) L Neutrophils (%) (Auto) 64.7 % (45.0-75.0) Lymphocytes (%) (Auto) 21.9 % (20.0-45.0) Monocytes (%) (Auto) 9.9 % (1.0-10.0) Eosinophils (%) (Auto) 2.3 % (0.0-3.0) Basophils (%) (Auto) 1.3 % (0.0-2.0) Sodium Level 134 MMOL/L (136-145) L Potassium Level 4.6 MMOL/L (3.5-5.1) Chloride Level 96 MMOL/L (98-107) L Carbon Dioxide Level 29 MMOL/L (21-32) Anion Gap 9 mmol/L (5-15) Blood Urea Nitrogen 29 mg/dL (7-18) H Creatinine 8.5 MG/DL (0.55-1.30) H Estimat Glomerular Filtration Rate 8.1 mL/min (>60) Glucose Level 178 MG/DL (74-106) H Calcium Level 8.6 MG/DL (8.5-10.1) Phosphorus Level 4.2 MG/DL (2.5-4.9) Magnesium Level 2.3 MG/DL (1.8-2.4) Total Bilirubin 0.5 MG/DL (0.2-1.0) Aspartate Amino Transf (AST/SGOT) 11 U/L (15-37) L Alanine Aminotransferase (ALT/SGPT) 11 U/L (12-78) L Alkaline Phosphatase 127 U/L (46-116) H Total Protein 8.0 G/DL (6.4-8.2) Albumin 2.7 G/DL (3.4-5.0) L Globulin 5.3 g/dL Albumin/Globulin Ratio 0.5 (1.0-2.7) L Current Medications Medications (Trade) Dose Ordered Sig/Felix Route PRN Reason Start Time Stop Time Status Last Admin Dose Admin Acetaminophen (Tylenol) 650 mg Q4H PRN ORAL fever 01/10/18 18:15 02/09/18 18:14 Albuterol/ Ipratropium (Albuterol/ Ipratropium) 3 ml Q4H PRN HHN Shortness of Breath 01/10/18 18:15 01/15/18 18:14 Amlodipine Besylate (Norvasc) 5 mg DAILY ORAL 01/11/18 09:00 02/10/18 08:59 01/13/18 09:24 Aspirin (ASA) 81 mg DAILY ORAL 01/11/18 09:00 02/10/18 08:59 01/13/18 09:23 Atorvastatin Calcium (Lipitor) 10 mg BEDTIME ORAL 01/10/18 21:00 02/09/18 20:59 01/12/18 21:05 Cefepime HCl 500 mg/Dextrose 55 ml @ 110 mls/hr Q24H IVPB 01/11/18 21:00 01/18/18 20:59 01/12/18 20:51 Dextrose (Dextrose 50%) 25 ml Q30M PRN IV Hypoglycemia 01/10/18 18:15 02/09/18 18:14 Dextrose (Dextrose 50%) 50 ml Q30M PRN IV Hypoglycemia 01/10/18 18:30 02/09/18 18:29 Epoetin Daniel (Procrit (for ESRD on dialysis)) 7,000 units TUE-WED-TUE SUBQ 01/13/18 21:00 02/12/18 20:59 Escitalopram Oxalate (Lexapro) 10 mg DAILY ORAL 01/11/18 09:00 02/10/18 08:59 01/13/18 09:24 Heparin Sodium (Porcine) (Heparin 5000 units/ml) 5,000 units EVERY 12 HOURS SUBQ 01/10/18 21:00 02/09/18 20:59 01/13/18 09:25 Hydralazine HCl (Apresoline) 50 mg EVERY 8 HOURS ORAL 01/10/18 22:00 02/09/18 21:59 01/13/18 13:40 Insulin Aspart (NovoLOG) BEFORE MEALS AND HS SUBQ 01/10/18 21:00 02/09/18 20:59 01/13/18 12:27 Metoprolol Succinate (Toprol XL) 200 mg DAILY ORAL 01/11/18 09:00 02/10/18 08:59 01/13/18 09:23 Morphine Sulfate (Morphine Sulfate) 2 mg Q4H PRN IVP Moderate Pain (Pain Scale 4-6) 01/10/18 18:15 01/17/18 18:14 01/13/18 00:41 Nitroglycerin (Ntg) 0.4 mg Q5M PRN SL Prn Chest Pain 01/10/18 18:15 02/09/18 18:14 Ondansetron HCl (Zofran) 4 mg Q6H PRN IVP Nausea & Vomiting 01/10/18 18:15 02/09/18 18:14 01/12/18 12:43 Polyethylene Glycol (Miralax) 17 gm DAILYPRN PRN ORAL Constipation 01/10/18 18:15 02/09/18 18:14 Pravastatin Sodium (Pravachol) 40 mg BEDTIME ORAL 01/10/18 21:00 02/09/18 20:59 01/12/18 21:06 Sevelamer Carbonate (Renvela) 800 mg THREE TIMES A DAY ORAL 01/11/18 09:00 02/10/18 08:59 01/13/18 13:40 Temazepam (Restoril) 15 mg HSPRN PRN ORAL Insomnia 01/10/18 18:15 01/17/18 18:14 Vancomycin HCl (Vanco rx to dose) 1 ea DAILY PRN MISC per rx protocol 01/10/18 19:30 02/09/18 19:29 Cira Ceja M.D. Jan 13, 2018 15:44
[2018-01-13] MEDS: Cefepime 500mg in D5W 55ml IVPB SCH (20:24)
[2018-01-13] MEDS ORDERED: Epogen (for ESRD on dialysis) SUBQ SCH (21:00)
--- NOTE | 2018-01-13 21:24 | General Progress Note ---
Assessment/Plan Problem List: (1) Encephalopathy ICD Codes: G93.40 - Encephalopathy, unspecified SNOMED: [id number] (2) mdd Assessment/Plan lexapro 10mg qam provided ro/st Subjective Date patient seen: Jan 13, 2018 Neurologic/Psychiatric: Reports: anxiety, depressed, emotional problems Allergies: Coded Allergies: NO KNOWN ALLERGIES (Verified Allergy, Unknown, 12/04/17) Objective Last 24 Hour Vital Signs Date Time Temp Pulse Resp B/P (MAP) Pulse Ox O2 Delivery O2 Flow Rate FiO2 01/13/18 20:15 Room Air 01/13/18 16:00 97.7 83 16 137/91 (106) 99 01/13/18 13:40 131/89 01/13/18 12:00 98.2 84 16 131/89 (103) 100 01/13/18 09:24 87 136/89 01/13/18 09:23 87 136/89 01/13/18 09:00 Room Air 01/13/18 08:00 96.1 87 16 136/89 (105) 99 01/13/18 07:37 76 16 Room Air 21 01/13/18 05:30 142/84 01/13/18 04:10 97.7 90 18 142/84 (103) 99 01/13/18 02:06 142/100 (114) 01/13/18 01:11 98.1 01/13/18 00:35 98.1 87 18 153/102 (119) 98 Intake and Output 01/12/18 01/13/18 19:00 07:00 Intake Total 600 ml 570.000 ml Output Total 4000 ml Balance -3400 ml 570.000 ml Intake Oral 600 ml 240 ml IV Total 330.000 ml Hemodialysis UF 4000 ml # Voids 3 1 Laboratory Tests 01/13/18 05:35: White Blood Count 5.9, Red Blood Count 3.45L, Hemoglobin 10.9L, Hematocrit 34.1L , Mean Corpuscular Volume 99, Mean Corpuscular Hemoglobin 31.6H, Mean Corpuscular Hemoglobin Concent 31.9L, Red Cell Distribution Width 15.7H, Platelet Count 318, Mean Platelet Volume 6.0L, Neutrophils (%) (Auto) 64.7, Lymphocytes (%) (Auto) 21.9, Monocytes (%) (Auto) 9.9, Eosinophils (%) (Auto) 2.3, Basophils (%) (Auto) 1.3, Sodium Level 134L, Potassium Level 4.6, Chloride Level 96L, Carbon Dioxide Level 29, Anion Gap 9, Blood Urea Nitrogen 29H, Creatinine 8.5H, Estimat Glomerular Filtration Rate 8.1, Glucose Level 178H, Calcium Level 8.6, Phosphorus Level 4.2, Magnesium Level 2.3, Total Bilirubin 0.5, Aspartate Amino Transf (AST/SGOT) 11L, Alanine Aminotransferase (ALT/SGPT) 11L, Alkaline Phosphatase 127H, Total Protein 8.0, Albumin 2.7L, Globulin 5.3, Albumin/Globulin Ratio 0.5L Height (Feet): 6 Height (Inches): 0.00 Weight (Pounds): 193 General Appearance: no apparent distress, alert Neurologic: oriented x 3, responsive, depressed affect Leora Bishop MD Jan 13, 2018 21:24
[2018-01-14] VITALS: BP 142/82
[2018-01-14 04:00] VITALS: BP 159/88
[2018-01-14] MEDS: HydrALAZINE 50mg tab ORAL SCH ×3 (07:01→21:28)
[2018-01-14] MEDS: NovoLOG Insulin Flexpen SUBQ SCH ×4 (07:03→21:30)
[2018-01-14 08:00] VITALS: BP 130/64
[2018-01-14] MEDS ORDERED: Fluconazole 100mg tab ORAL SCH (09:00)
[2018-01-14 11:53] VITALS: BP 129/75
[2018-01-14] MEDS: Aspirin Baby 81mg ORAL SCH (11:58)
[2018-01-14] MEDS: Metoprolol Succinate XL 100mg tab ORAL SCH (12:00)
[2018-01-14] MEDS: Heparin 5000 units/ml inj SUBQ SCH ×2 (12:02→21:29)
[2018-01-14] MEDS: Renvela 800mg Pkt ORAL SCH ×3 (12:09→17:01)
--- NOTE | 2018-01-14 14:16 | Internal Med Progress Note ---
Subjective Date of Service: Jan 14, 2018 Physician Name LashellMiles Attending Physician Shahram Duong MD Current Medications Medications (Trade) Dose Ordered Sig/Felix Route PRN Reason Start Time Stop Time Status Last Admin Dose Admin Acetaminophen (Tylenol) 650 mg Q4H PRN ORAL fever 01/10/18 18:15 02/09/18 18:14 Albuterol/ Ipratropium (Albuterol/ Ipratropium) 3 ml Q4H PRN HHN Shortness of Breath 01/10/18 18:15 01/15/18 18:14 Amlodipine Besylate (Norvasc) 5 mg DAILY ORAL 01/11/18 09:00 02/10/18 08:59 01/14/18 12:00 Aspirin (ASA) 81 mg DAILY ORAL 01/11/18 09:00 02/10/18 08:59 01/14/18 11:58 Atorvastatin Calcium (Lipitor) 10 mg BEDTIME ORAL 01/10/18 21:00 02/09/18 20:59 01/13/18 20:16 Cefepime HCl 500 mg/Dextrose 55 ml @ 110 mls/hr Q24H IVPB 01/11/18 21:00 01/18/18 20:59 01/13/18 20:24 Dextrose (Dextrose 50%) 25 ml Q30M PRN IV Hypoglycemia 01/10/18 18:15 02/09/18 18:14 Dextrose (Dextrose 50%) 50 ml Q30M PRN IV Hypoglycemia 01/10/18 18:30 02/09/18 18:29 Epoetin Daniel (Procrit (for ESRD on dialysis)) 7,000 units TUE-TUE-TUE SUBQ 01/13/18 21:00 02/12/18 20:59 01/13/18 21:11 Escitalopram Oxalate (Lexapro) 10 mg DAILY ORAL 01/11/18 09:00 02/10/18 08:59 01/14/18 12:00 Fluconazole (Diflucan) 100 mg DAILY ORAL 01/14/18 09:00 01/21/18 08:59 01/14/18 12:00 Heparin Sodium (Porcine) (Heparin 5000 units/ml) 5,000 units EVERY 12 HOURS SUBQ 01/10/18 21:00 02/09/18 20:59 01/14/18 12:02 Hydralazine HCl (Apresoline) 50 mg EVERY 8 HOURS ORAL 01/10/18 22:00 02/09/18 21:59 01/14/18 07:01 Insulin Aspart (NovoLOG) BEFORE MEALS AND HS SUBQ 01/10/18 21:00 02/09/18 20:59 01/14/18 12:03 Metoprolol Succinate (Toprol XL) 200 mg DAILY ORAL 01/11/18 09:00 02/10/18 08:59 01/14/18 12:00 Morphine Sulfate (Morphine Sulfate) 2 mg Q4H PRN IVP Moderate Pain (Pain Scale 4-6) 01/10/18 18:15 01/17/18 18:14 01/13/18 00:41 Nitroglycerin (Ntg) 0.4 mg Q5M PRN SL Prn Chest Pain 01/10/18 18:15 02/09/18 18:14 Ondansetron HCl (Zofran) 4 mg Q6H PRN IVP Nausea & Vomiting 01/10/18 18:15 02/09/18 18:14 01/12/18 12:43 Polyethylene Glycol (Miralax) 17 gm DAILYPRN PRN ORAL Constipation 01/10/18 18:15 02/09/18 18:14 Pravastatin Sodium (Pravachol) 40 mg BEDTIME ORAL 01/10/18 21:00 02/09/18 20:59 01/13/18 20:16 Sevelamer Carbonate (Renvela) 800 mg THREE TIMES A DAY ORAL 01/11/18 09:00 02/10/18 08:59 01/14/18 12:09 Temazepam (Restoril) 15 mg HSPRN PRN ORAL Insomnia 01/10/18 18:15 01/17/18 18:14 Vancomycin HCl (Vanco rx to dose) 1 ea DAILY PRN MISC per rx protocol 01/10/18 19:30 02/09/18 19:29 Allergies: Coded Allergies: NO KNOWN ALLERGIES (Verified Allergy, Unknown, 12/04/17) ROS Limited/Unobtainable: No Constitutional: Reports: no symptoms HEENT: Reports: no symptoms Cardiovascular: Reports: no symptoms Respiratory: Reports: no symptoms Gastrointestinal/Abdominal: Reports: no symptoms Genitourinary: Reports: no symptoms Neurologic/Psychiatric: Reports: no symptoms Subjective 52 YO M admitted with chief complaint right foot pain. Now osteomyelitis. Cover for Int Med-Dr Duong Objective Last Vital Signs Date Time Temp Pulse Resp B/P (MAP) Pulse Ox O2 Delivery O2 Flow Rate FiO2 01/14/18 12:00 77 129/75 01/14/18 11:53 97.0 14 99 01/14/18 09:00 Room Air 01/13/18 07:37 21 Intake and Output 01/13/18 01/14/18 19:00 07:00 Intake Total 880 ml 355 ml Balance 880 ml 355 ml Intake Oral 880 ml 300 ml IV Total 55 ml # Voids 4 Objective General Appearance: WD/WN, no apparent distress, alert EENT: PERRL/EOMI, normal ENT inspection, TMs normal Neck: non-tender, normal alignment, supple, normal inspection Cardiovascular: normal peripheral pulses, normal rate, regular rhythm, no gallop/murmur, no JVD Respiratory/Chest: chest wall non-tender, lungs clear, normal breath sounds, no respiratory distress, no accessory muscle use Abdomen: normal bowel sounds, non tender, soft, no organomegaly, no mass Extremities: normal range of motion, other - right foot pain Edema: trace edema Neurologic: finishing inspector II-XII grossly normal, no motor/sensory deficits Skin: normal pigmentation, warm/dry Assessment/Plan Problem List: (1) Right foot pain (2) Acute osteomyelitis of metatarsal bone of right foot Assessment & Plan: Non surgical-see podiatry note. Continue cefepime and vanco. Will require Antibiotics for 6 weeks per ID note (3) Diabetes mellitus Assessment & Plan: Continue insulin sliding scale. (4) ESRD (end stage renal disease) Assessment & Plan: See nephrology note. Hemodialysis 01/12/18 (5) HTN (hypertension) Assessment & Plan: continue hydralazine, metoprolol and norvasc. Miles Lobo MD Jan 14, 2018 14:16
--- NOTE | 2018-01-14 15:52 | Infectious Diseases Prog Note ---
Assessment/Plan Problems: (1) Acute osteomyelitis of metatarsal bone of right foot Assessment & Plan: previously grew MSSA , providenciae rettgeri and proteus mirabilis, underwent revision of his right stump wound after revascularization at [facility] . was discharged on meropenem and cefazoline for 6 weeks . unclear whether he was receiving any antibiotics at the HD center . MRI of the right foot now showed possible distal metatarsal bones osteomyelitis , and wound culture grew serratia marcescens and summer glabrata , continue vancomycin and cefepime for 6 weeks with HD in supervised environment such as SNF to ensure receiving antibiotics since he is noncompliant, appreciate customer care professional input . add fluconazole high dose to cover summer glabrata (2) Ulcer of amputation stump of foot Assessment & Plan: with purulent discharge , and possible under lying osteomyelitis, continue wide spectrum antibiotics for 6 weeks course of treatment . (3) Sepsis Assessment & Plan: due to the above, blood culture remains negative , continue wide spectrum antibiotics (4) Diabetes mellitus Assessment & Plan: recommend tight glycemic control to keep blood glucose between 100-140 (5) ESRD (end stage renal disease) Assessment & Plan: on HD renal service is following Subjective Constitutional: Reports: no symptoms HEENT: Reports: no symptoms Respiratory: Reports: no symptoms Breasts: Reports: no symptoms Cardiovascular: Reports: no symptoms Gastrointestinal/Abdominal: Reports: no symptoms Genitourinary: Reports: no symptoms Neurologic: Reports: no symptoms Psychiatric: Reports: no symptoms Skin: Reports: no symptoms Endocrine: Reports: no symptoms Hematologic: Reports: no symptoms Musculoskeletal: Reports: no symptoms Allergies: Coded Allergies: NO KNOWN ALLERGIES (Verified Allergy, Unknown, 12/04/17) Subjective he was comfortable lying in bed, getting hemodialysis. Objective Vital Signs Last 24 Hour Vital Signs Date Time Temp Pulse Resp B/P (MAP) Pulse Ox O2 Delivery O2 Flow Rate FiO2 01/14/18 14:00 104/63 01/14/18 12:00 77 129/75 01/14/18 12:00 77 129/75 01/14/18 11:53 97.0 77 14 129/75 (93) 99 01/14/18 09:00 Room Air 01/14/18 08:00 97.7 72 20 130/64 (86) 100 01/14/18 07:01 153/81 01/14/18 04:00 97.7 20 159/88 (111) 99 01/14/18 00:00 98.1 72 20 142/82 (102) 99 01/13/18 21:47 147/86 01/13/18 20:15 Room Air 01/13/18 20:00 97.7 72 20 103/50 (67) 99 01/13/18 16:00 97.7 83 16 137/91 (106) 99 Height (Feet): 6 Height (Inches): 0.00 Weight (Pounds): 186 General Appearance: WD/WN, no acute distress HEENT: normocephalic, atraumatic, anicteric, mucous membranes moist, PERRL Respiratory/Chest: chest wall non-tender, lungs clear, normal breath sounds, no respiratory distress, no accessory muscle use Cardiovascular: normal peripheral pulses, normal rate, regular rhythm, no gallop/murmur, no JVD Abdomen: normal bowel sounds, soft, non tender, no organomegaly, non distended , no mass, no scars Extremities: no cyanosis, no clubbing Skin: no rash, no lesions, ulcers - right foot stump wound covered with wound VAC Neurologic/Psychiatric: alert, oriented x 3, responsive Lymphatic: no neck adenopathy, no groin adenopathy Musculoskeletal: normal muscle bulk, no effusion Current Medications Medications (Trade) Dose Ordered Sig/Felix Route PRN Reason Start Time Stop Time Status Last Admin Dose Admin Acetaminophen (Tylenol) 650 mg Q4H PRN ORAL fever 01/10/18 18:15 02/09/18 18:14 Albuterol/ Ipratropium (Albuterol/ Ipratropium) 3 ml Q4H PRN HHN Shortness of Breath 01/10/18 18:15 01/15/18 18:14 Amlodipine Besylate (Norvasc) 5 mg DAILY ORAL 01/11/18 09:00 02/10/18 08:59 01/14/18 12:00 Aspirin (ASA) 81 mg DAILY ORAL 01/11/18 09:00 02/10/18 08:59 01/14/18 11:58 Atorvastatin Calcium (Lipitor) 10 mg BEDTIME ORAL 01/10/18 21:00 02/09/18 20:59 01/13/18 20:16 Cefepime HCl 500 mg/Dextrose 55 ml @ 110 mls/hr Q24H IVPB 01/11/18 21:00 01/18/18 20:59 01/13/18 20:24 Dextrose (Dextrose 50%) 25 ml Q30M PRN IV Hypoglycemia 01/10/18 18:15 02/09/18 18:14 Dextrose (Dextrose 50%) 50 ml Q30M PRN IV Hypoglycemia 01/10/18 18:30 02/09/18 18:29 Epoetin Daniel (Procrit (for ESRD on dialysis)) 7,000 units TUE-TUE-TUE SUBQ 01/13/18 21:00 02/12/18 20:59 01/13/18 21:11 Escitalopram Oxalate (Lexapro) 10 mg DAILY ORAL 01/11/18 09:00 02/10/18 08:59 01/14/18 12:00 Fluconazole (Diflucan) 100 mg DAILY ORAL 01/14/18 09:00 01/21/18 08:59 01/14/18 12:00 Heparin Sodium (Porcine) (Heparin 5000 units/ml) 5,000 units EVERY 12 HOURS SUBQ 01/10/18 21:00 02/09/18 20:59 01/14/18 12:02 Hydralazine HCl (Apresoline) 50 mg EVERY 8 HOURS ORAL 01/10/18 22:00 02/09/18 21:59 01/14/18 07:01 Insulin Aspart (NovoLOG) BEFORE MEALS AND HS SUBQ 01/10/18 21:00 02/09/18 20:59 01/14/18 12:03 Metoprolol Succinate (Toprol XL) 200 mg DAILY ORAL 01/11/18 09:00 02/10/18 08:59 01/14/18 12:00 Morphine Sulfate (Morphine Sulfate) 2 mg Q4H PRN IVP Moderate Pain (Pain Scale 4-6) 01/10/18 18:15 01/17/18 18:14 01/13/18 00:41 Nitroglycerin (Ntg) 0.4 mg Q5M PRN SL Prn Chest Pain 01/10/18 18:15 02/09/18 18:14 Ondansetron HCl (Zofran) 4 mg Q6H PRN IVP Nausea & Vomiting 01/10/18 18:15 02/09/18 18:14 01/12/18 12:43 Polyethylene Glycol (Miralax) 17 gm DAILYPRN PRN ORAL Constipation 01/10/18 18:15 02/09/18 18:14 Pravastatin Sodium (Pravachol) 40 mg BEDTIME ORAL 01/10/18 21:00 02/09/18 20:59 01/13/18 20:16 Sevelamer Carbonate (Renvela) 800 mg THREE TIMES A DAY ORAL 01/11/18 09:00 02/10/18 08:59 01/14/18 12:09 Temazepam (Restoril) 15 mg HSPRN PRN ORAL Insomnia 01/10/18 18:15 01/17/18 18:14 Vancomycin HCl (Vanco rx to dose) 1 ea DAILY PRN MISC per rx protocol 01/10/18 19:30 02/09/18 19:29 Cira Ceja M.D. Jan 14, 2018 15:52
[2018-01-14 16:00] VITALS: BP 132/71
--- NOTE | 2018-01-14 17:29 | Nephrology Progress Note ---
Assessment/Plan Assessment 1.ESRD 2.Anemia of ckd 3.ASHLEY 4.PVD 5.HTN 6.None healing foot ulcer Plan dialysis as schedule continue epogen monitoring phos iv anabiotic Subjective Constitutional: Reports: no symptoms HEENT: Reports: no symptoms Genitourinary: Reports: no symptoms Neurologic/Psychiatric: Reports: no symptoms Subjective had dialysis today Objective Objective Last 24 Hour Vital Signs Date Time Temp Pulse Resp B/P (MAP) Pulse Ox O2 Delivery O2 Flow Rate FiO2 01/14/18 16:00 98.3 83 20 132/71 (91) 99 01/14/18 14:00 104/63 01/14/18 12:00 77 129/75 01/14/18 12:00 77 129/75 01/14/18 11:53 97.0 77 14 129/75 (93) 99 01/14/18 09:00 Room Air 01/14/18 08:00 97.7 72 20 130/64 (86) 100 01/14/18 07:01 153/81 01/14/18 04:00 97.7 20 159/88 (111) 99 01/14/18 00:00 98.1 72 20 142/82 (102) 99 01/13/18 21:47 147/86 01/13/18 20:15 Room Air 01/13/18 20:00 97.7 72 20 103/50 (67) 99 Intake and Output 01/13/18 01/14/18 19:00 07:00 Intake Total 880 ml 355 ml Balance 880 ml 355 ml Intake Oral 880 ml 300 ml IV Total 55 ml # Voids 4 Height (Feet): 6 Height (Inches): 0.00 Weight (Pounds): 186 Objective General Appearance: WD/WN, no acute distress HEENT: normocephalic, atraumatic, anicteric, mucous membranes moist, PERRL, EOMI, pharynx normal, supple, no JVD Respiratory/Chest: chest wall non-tender, lungs clear, normal breath sounds, no respiratory distress, no accessory muscle use Cardiovascular: normal peripheral pulses, normal rate, regular rhythm, no gallop/murmur, no JVD Abdomen: normal bowel sounds, soft, non tender, no organomegaly, non distended , no mass, no scars Genitourinary: normal external genitalia Extremities: no cyanosis, no clubbing Skin: no rash, no lesions, ulcers, other - right stump wound with open skin draining serosanginous fluids Neurologic/Psychiatric: alert, oriented x 3, responsive Lymphatic: no neck adenopathy, no groin adenopathy Musculoskeletal: normal muscle bulk, no effusion Tessa Schwartz MD Jan 14, 2018 17:29
--- NOTE | 2018-01-14 19:02 | General Progress Note ---
Assessment/Plan Problem List: (1) Encephalopathy ICD Codes: G93.40 - Encephalopathy, unspecified SNOMED: [id number] (2) mdd Status: stable, progressing Assessment/Plan lexapro 10mg qam provided ro/st Subjective Date patient seen: Jan 14, 2018 Neurologic/Psychiatric: Reports: anxiety, depressed Allergies: Coded Allergies: NO KNOWN ALLERGIES (Verified Allergy, Unknown, 12/04/17) Subjective The pt is withdrawn and depressed Objective Last 24 Hour Vital Signs Date Time Temp Pulse Resp B/P (MAP) Pulse Ox O2 Delivery O2 Flow Rate FiO2 01/14/18 16:00 98.3 83 20 132/71 (91) 99 01/14/18 14:00 104/63 01/14/18 12:00 77 129/75 01/14/18 12:00 77 129/75 01/14/18 11:53 97.0 77 14 129/75 (93) 99 01/14/18 09:00 Room Air 01/14/18 08:00 97.7 72 20 130/64 (86) 100 01/14/18 07:01 153/81 01/14/18 04:00 97.7 20 159/88 (111) 99 01/14/18 00:00 98.1 72 20 142/82 (102) 99 01/13/18 21:47 147/86 01/13/18 20:15 Room Air 01/13/18 20:00 97.7 72 20 103/50 (67) 99 Intake and Output 01/13/18 01/14/18 19:00 07:00 Intake Total 880 ml 355 ml Balance 880 ml 355 ml Intake Oral 880 ml 300 ml IV Total 55 ml # Voids 4 Height (Feet): 6 Height (Inches): 0.00 Weight (Pounds): 186 General Appearance: WD/WN, no apparent distress, alert Neurologic: oriented x 3, responsive, depressed affect Leora Bishop MD Jan 14, 2018 19:02
[2018-01-14 20:00] VITALS: BP 129/73
[2018-01-14] MEDS: Cefepime 500mg in D5W 55ml IVPB SCH (21:28)
[2018-01-15] VITALS: BP 128/77
[2018-01-15 04:00] VITALS: BP 139/76
[2018-01-15] MEDS: NovoLOG Insulin Flexpen SUBQ SCH ×4 (06:17→20:38)
[2018-01-15] MEDS: HydrALAZINE 50mg tab ORAL SCH ×3 (06:17→21:35)
[2018-01-15 06:57] LABS: ANION GAP 7 mmol/L (5-15); BLOOD UREA NITROGEN 36 mg/dL (7-18); CALCIUM 8.8 MG/DL (8.5-10.1); CARBON DIOXIDE 30 MMOL/L (21-32); CHLORIDE 95 MMOL/L (98-107); CREATININE 10.4 MG/DL (0.55-1.30); POTASSIUM 5.7 MMOL/L (3.5-5.1); SODIUM 132 MMOL/L (136-145)
[2018-01-15 07:03] LABS: BASOPHILS % (AUTO) 1.3 % (0.0-2.0); EOSINOPHILS % (AUTO) 2.2 % (0.0-3.0); HEMATOCRIT 36.6 % (42.0-52.0); HEMOGLOBIN 11.7 G/DL (14.2-18.0); LYMPHOCYTES % (AUTO) 24.7 % (20.0-45.0); MEAN CORPUSCULAR VOLUME 98 FL (80-99); MONOCYTES % (AUTO) 11.8 % (1.0-10.0); PLATELET COUNT 304 K/UL (150-450); RED BLOOD COUNT 3.72 M/UL (4.70-6.10); RED CELL DISTRIBUTION WIDTH 15.4 % (11.6-14.8); WHITE BLOOD COUNT 6.1 K/UL (4.8-10.8)
[2018-01-15 08:00] VITALS: BP 121/67
[2018-01-15] MEDS: Aspirin Baby 81mg ORAL SCH (08:07)
[2018-01-15] MEDS: Renvela 800mg Pkt ORAL SCH ×3 (08:07→17:16)
[2018-01-15] MEDS: Fluconazole 100mg tab ORAL SCH (08:08)
[2018-01-15] MEDS: Heparin 5000 units/ml inj SUBQ SCH ×2 (08:10→20:38)
[2018-01-15] MEDS: Metoprolol Succinate XL 100mg tab ORAL SCH (08:17)
[2018-01-15 12:00] VITALS: BP 143/94
--- NOTE | 2018-01-15 15:29 | Internal Med Progress Note ---
Subjective Date of Service: Jan 15, 2018 Physician Name LashellMiles Attending Physician Shahram Duong MD Current Medications Medications (Trade) Dose Ordered Sig/Felix Route PRN Reason Start Time Stop Time Status Last Admin Dose Admin Acetaminophen (Tylenol) 650 mg Q4H PRN ORAL fever 01/10/18 18:15 02/09/18 18:14 Albuterol/ Ipratropium (Albuterol/ Ipratropium) 3 ml Q4H PRN HHN Shortness of Breath 01/10/18 18:15 01/15/18 18:14 Amlodipine Besylate (Norvasc) 5 mg DAILY ORAL 01/11/18 09:00 02/10/18 08:59 01/15/18 08:08 Aspirin (ASA) 81 mg DAILY ORAL 01/11/18 09:00 02/10/18 08:59 01/15/18 08:07 Atorvastatin Calcium (Lipitor) 10 mg BEDTIME ORAL 01/10/18 21:00 02/09/18 20:59 01/14/18 21:28 Cefepime HCl 500 mg/Dextrose 55 ml @ 110 mls/hr Q24H IVPB 01/11/18 21:00 01/18/18 20:59 01/14/18 21:28 Dextrose (Dextrose 50%) 25 ml Q30M PRN IV Hypoglycemia 01/10/18 18:15 02/09/18 18:14 Dextrose (Dextrose 50%) 50 ml Q30M PRN IV Hypoglycemia 01/10/18 18:30 02/09/18 18:29 Epoetin Daniel (Procrit (for ESRD on dialysis)) 7,000 units TUE-TUE-TUE SUBQ 01/13/18 21:00 02/12/18 20:59 01/13/18 21:11 Escitalopram Oxalate (Lexapro) 10 mg DAILY ORAL 01/11/18 09:00 02/10/18 08:59 01/15/18 08:08 Fluconazole (Diflucan) 200 mg DAILY ORAL 01/15/18 09:00 01/22/18 08:59 01/15/18 08:08 Heparin Sodium (Porcine) (Heparin 5000 units/ml) 5,000 units EVERY 12 HOURS SUBQ 01/10/18 21:00 02/09/18 20:59 01/15/18 08:10 Hydralazine HCl (Apresoline) 50 mg EVERY 8 HOURS ORAL 01/10/18 22:00 02/09/18 21:59 01/15/18 13:07 Insulin Aspart (NovoLOG) BEFORE MEALS AND HS SUBQ 01/10/18 21:00 02/09/18 20:59 01/15/18 12:12 Metoprolol Succinate (Toprol XL) 200 mg DAILY ORAL 01/11/18 09:00 02/10/18 08:59 01/14/18 12:00 Morphine Sulfate (Morphine Sulfate) 2 mg Q4H PRN IVP Moderate Pain (Pain Scale 4-6) 01/10/18 18:15 01/17/18 18:14 01/13/18 00:41 Nitroglycerin (Ntg) 0.4 mg Q5M PRN SL Prn Chest Pain 01/10/18 18:15 02/09/18 18:14 Ondansetron HCl (Zofran) 4 mg Q6H PRN IVP Nausea & Vomiting 01/10/18 18:15 02/09/18 18:14 01/12/18 12:43 Polyethylene Glycol (Miralax) 17 gm DAILYPRN PRN ORAL Constipation 01/10/18 18:15 02/09/18 18:14 Pravastatin Sodium (Pravachol) 40 mg BEDTIME ORAL 01/10/18 21:00 02/09/18 20:59 01/14/18 21:28 Sevelamer Carbonate (Renvela) 800 mg THREE TIMES A DAY ORAL 01/11/18 09:00 02/10/18 08:59 01/15/18 13:07 Temazepam (Restoril) 15 mg HSPRN PRN ORAL Insomnia 01/10/18 18:15 01/17/18 18:14 Vancomycin HCl (Vanco rx to dose) 1 ea DAILY PRN MISC per rx protocol 01/10/18 19:30 02/09/18 19:29 Vancomycin HCl 1 gm/Dextrose 275 ml @ 183.708 mls/hr ONCE ONCE IVPB 01/15/18 21:00 01/15/18 22:29 Allergies: Coded Allergies: NO KNOWN ALLERGIES (Verified Allergy, Unknown, 12/04/17) ROS Limited/Unobtainable: No Constitutional: Reports: no symptoms HEENT: Reports: no symptoms Cardiovascular: Reports: no symptoms Respiratory: Reports: no symptoms Gastrointestinal/Abdominal: Reports: no symptoms Genitourinary: Reports: no symptoms Neurologic/Psychiatric: Reports: no symptoms Subjective 52 YO M admitted with chief complaint right foot pain. Now osteomyelitis. Cover for Int Chuck-Dr Duong Objective Last Vital Signs Date Time Temp Pulse Resp B/P (MAP) Pulse Ox O2 Delivery O2 Flow Rate FiO2 01/15/18 13:07 143/94 01/15/18 12:00 97.2 94 16 97 01/15/18 09:00 Room Air 01/15/18 08:23 21 Laboratory Tests Test 01/15/18 05:45 White Blood Count 6.1 K/UL (4.8-10.8) Red Blood Count 3.72 M/UL (4.70-6.10) L Hemoglobin 11.7 G/DL (14.2-18.0) L Hematocrit 36.6 % (42.0-52.0) L Mean Corpuscular Volume 98 FL (80-99) Mean Corpuscular Hemoglobin 31.6 PG (27.0-31.0) H Mean Corpuscular Hemoglobin Concent 32.1 G/DL (32.0-36.0) Red Cell Distribution Width 15.4 % (11.6-14.8) H Platelet Count 304 K/UL (150-450) Mean Platelet Volume 6.1 FL (6.5-10.1) L Neutrophils (%) (Auto) 60.0 % (45.0-75.0) Lymphocytes (%) (Auto) 24.7 % (20.0-45.0) Monocytes (%) (Auto) 11.8 % (1.0-10.0) H Eosinophils (%) (Auto) 2.2 % (0.0-3.0) Basophils (%) (Auto) 1.3 % (0.0-2.0) Sodium Level 132 MMOL/L (136-145) L Potassium Level 5.7 MMOL/L (3.5-5.1) H Chloride Level 95 MMOL/L (98-107) L Carbon Dioxide Level 30 MMOL/L (21-32) Anion Gap 7 mmol/L (5-15) Blood Urea Nitrogen 36 mg/dL (7-18) H Creatinine 10.4 MG/DL (0.55-1.30) H Estimat Glomerular Filtration Rate 6.4 mL/min (>60) Glucose Level 161 MG/DL (74-106) H Calcium Level 8.8 MG/DL (8.5-10.1) Random Vancomycin Level 20.7 ug/mL Intake and Output 01/14/18 01/15/18 19:00 07:00 Intake Total 720 ml 720 ml Output Total 3504 ml 3510 ml Balance -2784 ml -2790 ml Intake Oral 720 ml 720 ml Output Urine Total 4 ml 0 ml Drainage Total 10 ml Hemodialysis UF 3500 ml 3500 ml # Voids 1 # Bowel Movements 1 Objective General Appearance: WD/WN, no apparent distress, alert EENT: PERRL/EOMI, normal ENT inspection, TMs normal Neck: non-tender, normal alignment, supple, normal inspection Cardiovascular: normal peripheral pulses, normal rate, regular rhythm, no gallop/murmur, no JVD Respiratory/Chest: chest wall non-tender, lungs clear, normal breath sounds, no respiratory distress, no accessory muscle use Abdomen: normal bowel sounds, non tender, soft, no organomegaly, no mass Extremities: normal range of motion, other - right foot pain Edema: trace edema Neurologic: gold cutter II-XII grossly normal, no motor/sensory deficits Skin: normal pigmentation, warm/dry Assessment/Plan Problem List: (1) Right foot pain (2) Acute osteomyelitis of metatarsal bone of right foot Assessment & Plan: Non surgical-see podiatry note. Continue cefepime and vanco. Will require Antibiotics for 6 weeks per ID note (3) Diabetes mellitus Assessment & Plan: Continue insulin sliding scale. (4) ESRD (end stage renal disease) Assessment & Plan: See nephrology note. Hemodialysis 01/12/18 (5) HTN (hypertension) Assessment & Plan: continue hydralazine, metoprolol and norvasc. Status: not improved Miles Lobo MD Jan 15, 2018 15:29
[2018-01-15] MEDS ORDERED: Sodium Polystyrene Sulfonate 15gm Powder ORAL SCH (15:37)
[2018-01-15 15:56] VITALS: BP 121/73
[2018-01-15 20:00] VITALS: BP 134/79
[2018-01-15] MEDS: Cefepime 500mg in D5W 55ml IVPB SCH (20:37)
--- NOTE | 2018-01-15 20:56 | Infectious Diseases Prog Note ---
Assessment/Plan Problems: (1) Acute osteomyelitis of metatarsal bone of right foot Assessment & Plan: previously grew MSSA , providenciae rettgeri and proteus mirabilis, underwent revision of his right stump wound after revascularization at [facility] . was discharged on meropenem and cefazoline for 6 weeks . unclear whether he was receiving any antibiotics at the HD center . MRI of the right foot now showed possible distal metatarsal bones osteomyelitis , and wound culture grew serratia marcescens and summer glabrata , continue vancomycin and cefepime for 6 weeks with HD in supervised environment such as SNF to ensure receiving antibiotics since he is noncompliant, appreciate cullet crusher and washer input . add fluconazole high dose to cover summer glabrata for 6 weeks too (2) Ulcer of amputation stump of foot Assessment & Plan: with purulent discharge , and possible under lying osteomyelitis, continue wide spectrum antibiotics for 6 weeks course of treatment . (3) Sepsis Assessment & Plan: due to the above, blood culture remains negative , continue wide spectrum antibiotics (4) Diabetes mellitus Assessment & Plan: recommend tight glycemic control to keep blood glucose between 100-140 (5) ESRD (end stage renal disease) Assessment & Plan: on HD renal service is following Subjective Constitutional: Reports: no symptoms HEENT: Reports: no symptoms Respiratory: Reports: no symptoms Breasts: Reports: no symptoms Cardiovascular: Reports: no symptoms Gastrointestinal/Abdominal: Reports: no symptoms Genitourinary: Reports: no symptoms Neurologic: Reports: no symptoms Psychiatric: Reports: no symptoms Skin: Reports: ulcer Endocrine: Reports: no symptoms Hematologic: Reports: no symptoms Musculoskeletal: Reports: no symptoms Allergies: Coded Allergies: NO KNOWN ALLERGIES (Verified Allergy, Unknown, 12/04/17) Subjective he was comfortable lying in bed, getting hemodialysis. Objective Vital Signs Last 24 Hour Vital Signs Date Time Temp Pulse Resp B/P (MAP) Pulse Ox O2 Delivery O2 Flow Rate FiO2 01/15/18 20:00 97.7 75 18 134/79 (97) 99 01/15/18 15:56 97.7 51 18 121/73 (89) 96 01/15/18 13:07 143/94 01/15/18 12:00 97.2 94 16 143/94 (110) 97 01/15/18 09:00 Room Air 01/15/18 08:23 82 14 Room Air 21 01/15/18 08:17 70 121/67 01/15/18 08:08 70 121/67 01/15/18 08:00 98.1 70 18 121/67 (85) 99 01/15/18 06:17 139/76 01/15/18 04:00 97.9 71 18 139/76 (97) 99 01/15/18 00:00 97.9 71 18 128/77 (94) 99 01/14/18 21:28 129/73 01/14/18 21:00 Room Air Height (Feet): 6 Height (Inches): 0.00 Weight (Pounds): 186 General Appearance: WD/WN, no acute distress HEENT: normocephalic, atraumatic, anicteric, mucous membranes moist, PERRL, EOMI, pharynx normal, supple, no JVD Respiratory/Chest: chest wall non-tender, normal breath sounds, no respiratory distress, no accessory muscle use, decreased breath sounds Cardiovascular: normal peripheral pulses, normal rate, regular rhythm, no gallop/murmur, no JVD Abdomen: normal bowel sounds, soft, non tender, no organomegaly, non distended , no mass, no scars Genitourinary: normal external genitalia Extremities: no cyanosis, no clubbing Skin: no rash, no lesions, no ulcers Neurologic/Psychiatric: alert, oriented x 3, responsive Lymphatic: no neck adenopathy, no groin adenopathy Laboratory Tests Test 01/15/18 05:45 White Blood Count 6.1 K/UL (4.8-10.8) Red Blood Count 3.72 M/UL (4.70-6.10) L Hemoglobin 11.7 G/DL (14.2-18.0) L Hematocrit 36.6 % (42.0-52.0) L Mean Corpuscular Volume 98 FL (80-99) Mean Corpuscular Hemoglobin 31.6 PG (27.0-31.0) H Mean Corpuscular Hemoglobin Concent 32.1 G/DL (32.0-36.0) Red Cell Distribution Width 15.4 % (11.6-14.8) H Platelet Count 304 K/UL (150-450) Mean Platelet Volume 6.1 FL (6.5-10.1) L Neutrophils (%) (Auto) 60.0 % (45.0-75.0) Lymphocytes (%) (Auto) 24.7 % (20.0-45.0) Monocytes (%) (Auto) 11.8 % (1.0-10.0) H Eosinophils (%) (Auto) 2.2 % (0.0-3.0) Basophils (%) (Auto) 1.3 % (0.0-2.0) Sodium Level 132 MMOL/L (136-145) L Potassium Level 5.7 MMOL/L (3.5-5.1) H Chloride Level 95 MMOL/L (98-107) L Carbon Dioxide Level 30 MMOL/L (21-32) Anion Gap 7 mmol/L (5-15) Blood Urea Nitrogen 36 mg/dL (7-18) H Creatinine 10.4 MG/DL (0.55-1.30) H Estimat Glomerular Filtration Rate 6.4 mL/min (>60) Glucose Level 161 MG/DL (74-106) H Calcium Level 8.8 MG/DL (8.5-10.1) Random Vancomycin Level 20.7 ug/mL Current Medications Medications (Trade) Dose Ordered Sig/Felix Route PRN Reason Start Time Stop Time Status Last Admin Dose Admin Acetaminophen (Tylenol) 650 mg Q4H PRN ORAL fever 01/10/18 18:15 02/09/18 18:14 Amlodipine Besylate (Norvasc) 5 mg DAILY ORAL 01/11/18 09:00 02/10/18 08:59 01/15/18 08:08 Aspirin (ASA) 81 mg DAILY ORAL 01/11/18 09:00 02/10/18 08:59 01/15/18 08:07 Atorvastatin Calcium (Lipitor) 10 mg BEDTIME ORAL 01/10/18 21:00 02/09/18 20:59 01/15/18 20:37 Cefepime HCl 500 mg/Dextrose 55 ml @ 110 mls/hr Q24H IVPB 01/11/18 21:00 01/18/18 20:59 01/15/18 20:37 Dextrose (Dextrose 50%) 25 ml Q30M PRN IV Hypoglycemia 01/10/18 18:15 02/09/18 18:14 Dextrose (Dextrose 50%) 50 ml Q30M PRN IV Hypoglycemia 01/10/18 18:30 02/09/18 18:29 Epoetin Daniel (Procrit (for ESRD on dialysis)) 7,000 units MON-WED-TUE SUBQ 01/13/18 21:00 02/12/18 20:59 01/13/18 21:11 Escitalopram Oxalate (Lexapro) 10 mg DAILY ORAL 01/11/18 09:00 02/10/18 08:59 01/15/18 08:08 Fluconazole (Diflucan) 200 mg DAILY ORAL 01/15/18 09:00 01/22/18 08:59 01/15/18 08:08 Heparin Sodium (Porcine) (Heparin 5000 units/ml) 5,000 units EVERY 12 HOURS SUBQ 01/10/18 21:00 02/09/18 20:59 01/15/18 20:38 Hydralazine HCl (Apresoline) 50 mg EVERY 8 HOURS ORAL 01/10/18 22:00 02/09/18 21:59 01/15/18 13:07 Insulin Aspart (NovoLOG) BEFORE MEALS AND HS SUBQ 01/10/18 21:00 02/09/18 20:59 01/15/18 20:38 Metoprolol Succinate (Toprol XL) 200 mg DAILY ORAL 01/11/18 09:00 02/10/18 08:59 01/14/18 12:00 Morphine Sulfate (Morphine Sulfate) 2 mg Q4H PRN IVP Moderate Pain (Pain Scale 4-6) 01/10/18 18:15 01/17/18 18:14 01/13/18 00:41 Nitroglycerin (Ntg) 0.4 mg Q5M PRN SL Prn Chest Pain 01/10/18 18:15 02/09/18 18:14 Ondansetron HCl (Zofran) 4 mg Q6H PRN IVP Nausea & Vomiting 01/10/18 18:15 02/09/18 18:14 01/12/18 12:43 Polyethylene Glycol (Miralax) 17 gm DAILYPRN PRN ORAL Constipation 01/10/18 18:15 02/09/18 18:14 Pravastatin Sodium (Pravachol) 40 mg BEDTIME ORAL 01/10/18 21:00 02/09/18 20:59 01/15/18 20:37 Sevelamer Carbonate (Renvela) 800 mg THREE TIMES A DAY ORAL 01/11/18 09:00 02/10/18 08:59 01/15/18 17:16 Temazepam (Restoril) 15 mg HSPRN PRN ORAL Insomnia 01/10/18 18:15 01/17/18 18:14 Vancomycin HCl (Vanco rx to dose) 1 ea DAILY PRN MISC per rx protocol 01/10/18 19:30 02/09/18 19:29 Vancomycin HCl 1 gm/Dextrose 275 ml @ 183.708 mls/hr ONCE ONCE IVPB 01/15/18 21:00 01/15/18 22:29 Cira Ceja M.D. Jan 15, 2018 20:56
[2018-01-15] MEDS ORDERED: Vancomycin 1gm/D5W 275ml IVPB ONE ×2 (21:00)
[2018-01-16] VITALS: BP 143/85
[2018-01-16 04:00] VITALS: BP 133/75
[2018-01-16] MEDS: HydrALAZINE 50mg tab ORAL SCH ×3 (05:43→21:13)
[2018-01-16] MEDS: NovoLOG Insulin Flexpen SUBQ SCH ×4 (05:44→21:11)
[2018-01-16 08:00] VITALS: BP 130/77
[2018-01-16 08:03] LABS: BASOPHILS % (AUTO) 1.4 % (0.0-2.0); EOSINOPHILS % (AUTO) 1.9 % (0.0-3.0); HEMATOCRIT 35.2 % (42.0-52.0); HEMOGLOBIN 11.7 G/DL (14.2-18.0); LYMPHOCYTES % (AUTO) 24.8 % (20.0-45.0); MEAN CORPUSCULAR VOLUME 99 FL (80-99); MONOCYTES % (AUTO) 11.2 % (1.0-10.0); NEUTROPHILS % (AUTO) 60.7 % (45.0-75.0); PLATELET COUNT 298 K/UL (150-450); RED BLOOD COUNT 3.55 M/UL (4.70-6.10); RED CELL DISTRIBUTION WIDTH 15.5 % (11.6-14.8); WHITE BLOOD COUNT 6.5 K/UL (4.8-10.8)
[2018-01-16 08:20] LABS: ANION GAP 11 mmol/L (5-15); BLOOD UREA NITROGEN 51 mg/dL (7-18); CALCIUM 8.4 MG/DL (8.5-10.1); CARBON DIOXIDE 29 MMOL/L (21-32); CHLORIDE 94 MMOL/L (98-107); CREATININE 12.6 MG/DL (0.55-1.30); POTASSIUM 5.1 MMOL/L (3.5-5.1); SODIUM 134 MMOL/L (136-145)
[2018-01-16] MEDS: Metoprolol Succinate XL 100mg tab ORAL SCH (09:19)
[2018-01-16] MEDS: Aspirin Baby 81mg ORAL SCH (09:19)
[2018-01-16] MEDS: Fluconazole 100mg tab ORAL SCH (09:19)
[2018-01-16] MEDS: Renvela 800mg Pkt ORAL SCH ×3 (09:20→17:02)
[2018-01-16] MEDS: Heparin 5000 units/ml inj SUBQ SCH ×2 (09:25→21:11)
[2018-01-16 12:00] VITALS: BP 133/79
--- NOTE | 2018-01-16 12:47 | Pulmonology Progress Note ---
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 (3) ESRD (end stage renal disease) (4) HTN (hypertension) (5) Diabetes mellitus Assessment/Plan wound vac in place improving continue abx check cultures f/u podiatry recommendations sliding scale diabetic diet HD by comptroller check electrolytes dc planning Subjective ROS Limited/Unobtainable: No Constitutional: Reports: no symptoms HEENT: Repors: no symptoms Respiratory: Reports: no symptoms Allergies: Coded Allergies: NO KNOWN ALLERGIES (Verified Allergy, Unknown, 12/04/17) Objective Last 24 Hour Vital Signs Date Time Temp Pulse Resp B/P (MAP) Pulse Ox O2 Delivery O2 Flow Rate FiO2 01/16/18 09:19 78 130/77 01/16/18 09:19 78 130/77 01/16/18 09:00 Room Air 01/16/18 08:00 97.3 78 18 130/77 (94) 97 01/16/18 05:43 133/75 01/16/18 04:00 97.9 77 18 133/75 (94) 96 01/16/18 00:00 97.7 75 18 143/85 (104) 100 01/15/18 21:35 134/79 01/15/18 21:00 Room Air 01/15/18 20:00 97.7 75 18 134/79 (97) 99 01/15/18 15:56 97.7 51 18 121/73 (89) 96 01/15/18 13:07 143/94 Intake and Output 01/15/18 01/16/18 18:59 06:59 Intake Total 800 ml 1575 ml Output Total 3530 ml Balance 800 ml -1955 ml Intake Oral 720 ml IV Total 55 ml Other 800 ml 800 ml Output Urine Total 0 ml Drainage Total 30 ml Hemodialysis UF 3500 ml # Voids 4 2 # Bowel Movements 1 General Appearance: WD/WN HEENT: normocephalic, atraumatic, anicteric Cardiovascular: normal peripheral pulses, normal rate Abdomen: normal bowel sounds, soft, non tender, no scars Extremities: no cyanosis, no clubbing Laboratory Tests 01/16/18 07:05: White Blood Count 6.5, Red Blood Count 3.55L, Hemoglobin 11.7L, Hematocrit 35.2L , Mean Corpuscular Volume 99, Mean Corpuscular Hemoglobin 32.8H, Mean Corpuscular Hemoglobin Concent 33.1, Red Cell Distribution Width 15.5H, Platelet Count 298, Mean Platelet Volume 6.4L, Neutrophils (%) (Auto) 60.7, Lymphocytes (%) (Auto) 24.8, Monocytes (%) (Auto) 11.2H, Eosinophils (%) (Auto) 1.9, Basophils (%) (Auto) 1.4, Sodium Level 134L, Potassium Level 5.1, Chloride Level 94L, Carbon Dioxide Level 29, Anion Gap 11, Blood Urea Nitrogen 51H, Creatinine 12.6H, Estimat Glomerular Filtration Rate 5.1, Glucose Level 133H, Calcium Level 8.4L Current Medications Medications (Trade) Dose Ordered Sig/Felix Route PRN Reason Start Time Stop Time Status Last Admin Dose Admin Acetaminophen (Tylenol) 650 mg Q4H PRN ORAL fever 01/10/18 18:15 02/09/18 18:14 Amlodipine Besylate (Norvasc) 5 mg DAILY ORAL 01/11/18 09:00 02/10/18 08:59 01/16/18 09:19 Aspirin (ASA) 81 mg DAILY ORAL 01/11/18 09:00 02/10/18 08:59 01/16/18 09:19 Atorvastatin Calcium (Lipitor) 10 mg BEDTIME ORAL 01/10/18 21:00 02/09/18 20:59 01/15/18 20:37 Cefepime HCl 500 mg/Dextrose 55 ml @ 110 mls/hr Q24H IVPB 01/11/18 21:00 01/18/18 20:59 01/15/18 20:37 Dextrose (Dextrose 50%) 25 ml Q30M PRN IV Hypoglycemia 01/10/18 18:15 02/09/18 18:14 Dextrose (Dextrose 50%) 50 ml Q30M PRN IV Hypoglycemia 01/10/18 18:30 02/09/18 18:29 Epoetin Daniel (Procrit (for ESRD on dialysis)) 7,000 units TUE-TUE-TUE SUBQ 01/13/18 21:00 02/12/18 20:59 01/13/18 21:11 Escitalopram Oxalate (Lexapro) 10 mg DAILY ORAL 01/11/18 09:00 02/10/18 08:59 11/5/18 09:19 Fluconazole (Diflucan) 200 mg DAILY ORAL 01/15/18 09:00 01/22/18 08:59 01/16/18 09:19 Heparin Sodium (Porcine) (Heparin 5000 units/ml) 5,000 units EVERY 12 HOURS SUBQ 01/10/18 21:00 02/09/18 20:59 01/16/18 09:25 Hydralazine HCl (Apresoline) 50 mg EVERY 8 HOURS ORAL 01/10/18 22:00 02/09/18 21:59 01/16/18 05:43 Insulin Aspart (NovoLOG) BEFORE MEALS AND HS SUBQ 01/10/18 21:00 02/09/18 20:59 01/16/18 12:03 Metoprolol Succinate (Toprol XL) 200 mg DAILY ORAL 01/11/18 09:00 02/10/18 08:59 01/16/18 09:19 Morphine Sulfate (Morphine Sulfate) 2 mg Q4H PRN IVP Moderate Pain (Pain Scale 4-6) 01/10/18 18:15 01/17/18 18:14 01/13/18 00:41 Nitroglycerin (Ntg) 0.4 mg Q5M PRN SL Prn Chest Pain 01/10/18 18:15 02/09/18 18:14 Ondansetron HCl (Zofran) 4 mg Q6H PRN IVP Nausea & Vomiting 01/10/18 18:15 02/09/18 18:14 01/12/18 12:43 Polyethylene Glycol (Miralax) 17 gm DAILYPRN PRN ORAL Constipation 01/10/18 18:15 02/09/18 18:14 Pravastatin Sodium (Pravachol) 40 mg BEDTIME ORAL 01/10/18 21:00 02/09/18 20:59 01/15/18 20:37 Sevelamer Carbonate (Renvela) 800 mg THREE TIMES A DAY ORAL 01/11/18 09:00 02/10/18 08:59 01/16/18 12:03 Temazepam (Restoril) 15 mg HSPRN PRN ORAL Insomnia 01/10/18 18:15 01/17/18 18:14 Vancomycin HCl (Vanco rx to dose) 1 ea DAILY PRN MISC per rx protocol 01/10/18 19:30 02/09/18 19:29 Jorge Anaya MD Jan 16, 2018 12:47
--- NOTE | 2018-01-16 14:25 | Podiatric Progress Note ---
Assessment/Plan Patient Mahsa Claire is a 52 year old male who was admitted on Jan 10, 2018 at 17: 46 with Subjective Allergies: Coded Allergies: NO KNOWN ALLERGIES (Verified Allergy, Unknown, 12/04/17) Objective Exam Last 24 Hour Vital Signs Date Time Temp Pulse Resp B/P (MAP) Pulse Ox O2 Delivery O2 Flow Rate FiO2 01/16/18 12:00 98.0 81 18 133/79 (97) 96 01/16/18 09:19 78 130/77 01/16/18 09:19 78 130/77 01/16/18 09:00 Room Air 01/16/18 08:00 97.3 78 18 130/77 (94) 97 01/16/18 05:43 133/75 01/16/18 04:00 97.9 77 18 133/75 (94) 96 01/16/18 00:00 97.7 75 18 143/85 (104) 100 01/15/18 21:35 134/79 01/15/18 21:00 Room Air 01/15/18 20:00 97.7 75 18 134/79 (97) 99 01/15/18 15:56 97.7 51 18 121/73 (89) 96 Laboratory Tests Test 01/16/18 07:05 White Blood Count 6.5 K/UL (4.8-10.8) Red Blood Count 3.55 M/UL (4.70-6.10) L Hemoglobin 11.7 G/DL (14.2-18.0) L Hematocrit 35.2 % (42.0-52.0) L Mean Corpuscular Volume 99 FL (80-99) Mean Corpuscular Hemoglobin 32.8 PG (27.0-31.0) H Mean Corpuscular Hemoglobin Concent 33.1 G/DL (32.0-36.0) Red Cell Distribution Width 15.5 % (11.6-14.8) H Platelet Count 298 K/UL (150-450) Mean Platelet Volume 6.4 FL (6.5-10.1) L Neutrophils (%) (Auto) 60.7 % (45.0-75.0) Lymphocytes (%) (Auto) 24.8 % (20.0-45.0) Monocytes (%) (Auto) 11.2 % (1.0-10.0) H Eosinophils (%) (Auto) 1.9 % (0.0-3.0) Basophils (%) (Auto) 1.4 % (0.0-2.0) Sodium Level 134 MMOL/L (136-145) L Potassium Level 5.1 MMOL/L (3.5-5.1) Chloride Level 94 MMOL/L (98-107) L Carbon Dioxide Level 29 MMOL/L (21-32) Anion Gap 11 mmol/L (5-15) Blood Urea Nitrogen 51 mg/dL (7-18) H Creatinine 12.6 MG/DL (0.55-1.30) H Estimat Glomerular Filtration Rate 5.1 mL/min (>60) Glucose Level 133 MG/DL (74-106) H Calcium Level 8.4 MG/DL (8.5-10.1) L Microbiology Date/Time Source Procedure Growth Status 01/11/18 14:15 Blood Blood Culture - Preliminary NO GROWTH AFTER 4 DAYS Resulted 01/10/18 19:10 Nasal Nares MRSA Culture - Final NO METHICILLIN RESISTANT STAPH AUREUS... Complete 01/10/18 22:00 Foot Right Gram Stain - Final Complete 01/10/18 22:00 Wound Culture - Final Serratia Marcescens Indu Glabrata Complete Azar Mensah DPM Jan 16, 2018 14:25
--- NOTE | 2018-01-16 14:39 | Infectious Diseases Prog Note ---
Assessment/Plan Problems: (1) Acute osteomyelitis of metatarsal bone of right foot Assessment & Plan: previously grew MSSA , providenciae rettgeri and proteus mirabilis, underwent revision of his right stump wound after revascularization at [facility] . was discharged on meropenem and cefazoline for 6 weeks . unclear whether he was receiving any antibiotics at the HD center . 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 add fluconazole high dose to cover summer glabrata for 6 weeks too. monitor weekly labs while on antibiotics with CBC, CMP follow up with wound care and podiatry service here at [facility] (2) Ulcer of amputation stump of foot Assessment & Plan: with purulent discharge , and possible under lying osteomyelitis, continue wide spectrum antibiotics for 6 weeks course of treatment . (3) Sepsis Assessment & Plan: due to the above, blood culture remains negative , continue wide spectrum antibiotics (4) Diabetes mellitus Assessment & Plan: recommend tight glycemic control to keep blood glucose between 100-140 (5) ESRD (end stage renal disease) Assessment & Plan: on HD renal service is following Subjective Constitutional: Reports: no symptoms HEENT: Reports: no symptoms Respiratory: Reports: no symptoms Breasts: Reports: no symptoms Cardiovascular: Reports: no symptoms Gastrointestinal/Abdominal: Reports: no symptoms Genitourinary: Reports: no symptoms Neurologic: Reports: no symptoms Psychiatric: Reports: no symptoms Skin: Reports: no symptoms Endocrine: Reports: no symptoms Hematologic: Reports: no symptoms Musculoskeletal: Reports: no symptoms Allergies: Coded Allergies: NO KNOWN ALLERGIES (Verified Allergy, Unknown, 12/04/17) Subjective he was comfortable lying in bed, getting hemodialysis. Objective Vital Signs Last 24 Hour Vital Signs Date Time Temp Pulse Resp B/P (MAP) Pulse Ox O2 Delivery O2 Flow Rate FiO2 01/16/18 12:00 98.0 81 18 133/79 (97) 96 01/16/18 09:19 78 130/77 01/16/18 09:19 78 130/77 01/16/18 09:00 Room Air 01/16/18 08:00 97.3 78 18 130/77 (94) 97 01/16/18 05:43 133/75 01/16/18 04:00 97.9 77 18 133/75 (94) 96 01/16/18 00:00 97.7 75 18 143/85 (104) 100 01/15/18 21:35 134/79 01/15/18 21:00 Room Air 01/15/18 20:00 97.7 75 18 134/79 (97) 99 01/15/18 15:56 97.7 51 18 121/73 (89) 96 Height (Feet): 6 Height (Inches): 0.00 Weight (Pounds): 194 General Appearance: WD/WN, no acute distress HEENT: normocephalic, atraumatic, anicteric, mucous membranes moist, PERRL Respiratory/Chest: chest wall non-tender, lungs clear, normal breath sounds, no respiratory distress, no accessory muscle use Cardiovascular: normal peripheral pulses, normal rate, regular rhythm, no gallop/murmur, no JVD Abdomen: normal bowel sounds, soft, non tender, no organomegaly, non distended , no mass, no scars Extremities: no cyanosis, no clubbing Skin: no rash, no lesions, ulcers - right foot stump wound with healthy tissue and no tissue necrosis or draining or foul smell Neurologic/Psychiatric: alert, oriented x 3, responsive Lymphatic: no neck adenopathy, no groin adenopathy Musculoskeletal: normal muscle bulk, no effusion Laboratory Tests Test 01/16/18 07:05 White Blood Count 6.5 K/UL (4.8-10.8) Red Blood Count 3.55 M/UL (4.70-6.10) L Hemoglobin 11.7 G/DL (14.2-18.0) L Hematocrit 35.2 % (42.0-52.0) L Mean Corpuscular Volume 99 FL (80-99) Mean Corpuscular Hemoglobin 32.8 PG (27.0-31.0) H Mean Corpuscular Hemoglobin Concent 33.1 G/DL (32.0-36.0) Red Cell Distribution Width 15.5 % (11.6-14.8) H Platelet Count 298 K/UL (150-450) Mean Platelet Volume 6.4 FL (6.5-10.1) L Neutrophils (%) (Auto) 60.7 % (45.0-75.0) Lymphocytes (%) (Auto) 24.8 % (20.0-45.0) Monocytes (%) (Auto) 11.2 % (1.0-10.0) H Eosinophils (%) (Auto) 1.9 % (0.0-3.0) Basophils (%) (Auto) 1.4 % (0.0-2.0) Sodium Level 134 MMOL/L (136-145) L Potassium Level 5.1 MMOL/L (3.5-5.1) Chloride Level 94 MMOL/L (98-107) L Carbon Dioxide Level 29 MMOL/L (21-32) Anion Gap 11 mmol/L (5-15) Blood Urea Nitrogen 51 mg/dL (7-18) H Creatinine 12.6 MG/DL (0.55-1.30) H Estimat Glomerular Filtration Rate 5.1 mL/min (>60) Glucose Level 133 MG/DL (74-106) H Calcium Level 8.4 MG/DL (8.5-10.1) L Current Medications Medications (Trade) Dose Ordered Sig/Felix Route PRN Reason Start Time Stop Time Status Last Admin Dose Admin Acetaminophen (Tylenol) 650 mg Q4H PRN ORAL fever 01/10/18 18:15 02/09/18 18:14 Amlodipine Besylate (Norvasc) 5 mg DAILY ORAL 01/11/18 09:00 02/10/18 08:59 01/16/18 09:19 Aspirin (ASA) 81 mg DAILY ORAL 01/11/18 09:00 02/10/18 08:59 01/16/18 09:19 Atorvastatin Calcium (Lipitor) 10 mg BEDTIME ORAL 01/10/18 21:00 02/09/18 20:59 01/15/18 20:37 Cefepime HCl 500 mg/Dextrose 55 ml @ 110 mls/hr Q24H IVPB 01/11/18 21:00 01/18/18 20:59 01/15/18 20:37 Dextrose (Dextrose 50%) 25 ml Q30M PRN IV Hypoglycemia 01/10/18 18:15 02/09/18 18:14 Dextrose (Dextrose 50%) 50 ml Q30M PRN IV Hypoglycemia 01/10/18 18:30 02/09/18 18:29 Epoetin Daniel (Procrit (for ESRD on dialysis)) 7,000 units MON-WED-FRI SUBQ 01/13/18 21:00 02/12/18 20:59 01/13/18 21:11 Escitalopram Oxalate (Lexapro) 10 mg DAILY ORAL 01/11/18 09:00 02/10/18 08:59 01/16/18 09:19 Fluconazole (Diflucan) 200 mg DAILY ORAL 01/15/18 09:00 01/22/18 08:59 01/16/18 09:19 Heparin Sodium (Porcine) (Heparin 5000 units/ml) 5,000 units EVERY 12 HOURS SUBQ 01/10/18 21:00 02/09/18 20:59 01/16/18 09:25 Hydralazine HCl (Apresoline) 50 mg EVERY 8 HOURS ORAL 01/10/18 22:00 02/09/18 21:59 01/16/18 05:43 Insulin Aspart (NovoLOG) BEFORE MEALS AND HS SUBQ 01/10/18 21:00 02/09/18 20:59 01/16/18 12:03 Metoprolol Succinate (Toprol XL) 200 mg DAILY ORAL 01/11/18 09:00 02/10/18 08:59 01/16/18 09:19 Morphine Sulfate (Morphine Sulfate) 2 mg Q4H PRN IVP Moderate Pain (Pain Scale 4-6) 01/10/18 18:15 01/17/18 18:14 01/13/18 00:41 Nitroglycerin (Ntg) 0.4 mg Q5M PRN SL Prn Chest Pain 01/10/18 18:15 02/09/18 18:14 Ondansetron HCl (Zofran) 4 mg Q6H PRN IVP Nausea & Vomiting 01/10/18 18:15 02/09/18 18:14 01/12/18 12:43 Polyethylene Glycol (Miralax) 17 gm DAILYPRN PRN ORAL Constipation 01/10/18 18:15 02/09/18 18:14 Pravastatin Sodium (Pravachol) 40 mg BEDTIME ORAL 01/10/18 21:00 02/09/18 20:59 01/15/18 20:37 Sevelamer Carbonate (Renvela) 800 mg THREE TIMES A DAY ORAL 01/11/18 09:00 02/10/18 08:59 01/16/18 12:03 Temazepam (Restoril) 15 mg HSPRN PRN ORAL Insomnia 01/10/18 18:15 01/17/18 18:14 Vancomycin HCl (Vanco rx to dose) 1 ea DAILY PRN MISC per rx protocol 01/10/18 19:30 02/09/18 19:29 Cira Ceja M.D. Jan 16, 2018 14:39
[2018-01-16 16:00] VITALS: BP 123/73
--- NOTE | 2018-01-16 18:04 | Internal Med Progress Note ---
Subjective Date of Service: Jan 16, 2018 Physician Name Miles Lobo Attending Physician Shahram Duong MD Current Medications Medications (Trade) Dose Ordered Sig/Felix Route PRN Reason Start Time Stop Time Status Last Admin Dose Admin Acetaminophen (Tylenol) 650 mg Q4H PRN ORAL fever 01/10/18 18:15 02/09/18 18:14 Amlodipine Besylate (Norvasc) 5 mg DAILY ORAL 01/11/18 09:00 02/10/18 08:59 01/16/18 09:19 Aspirin (ASA) 81 mg DAILY ORAL 01/11/18 09:00 02/10/18 08:59 01/16/18 09:19 Atorvastatin Calcium (Lipitor) 10 mg BEDTIME ORAL 01/10/18 21:00 02/09/18 20:59 01/15/18 20:37 Cefepime HCl 500 mg/Dextrose 55 ml @ 110 mls/hr Q24H IVPB 01/11/18 21:00 01/18/18 20:59 01/15/18 20:37 Dextrose (Dextrose 50%) 25 ml Q30M PRN IV Hypoglycemia 01/10/18 18:15 02/09/18 18:14 Dextrose (Dextrose 50%) 50 ml Q30M PRN IV Hypoglycemia 01/10/18 18:30 02/09/18 18:29 Epoetin Daniel (Procrit (for ESRD on dialysis)) 5,000 units TUE-TUE-TUE SUBQ 01/16/18 21:00 02/15/18 20:59 Escitalopram Oxalate (Lexapro) 10 mg DAILY ORAL 01/11/18 09:00 02/10/18 08:59 01/16/18 09:19 Fluconazole (Diflucan) 200 mg DAILY ORAL 01/15/18 09:00 01/22/18 08:59 01/16/18 09:19 Heparin Sodium (Porcine) (Heparin 5000 units/ml) 5,000 units EVERY 12 HOURS SUBQ 01/10/18 21:00 02/09/18 20:59 01/16/18 09:25 Hydralazine HCl (Apresoline) 50 mg EVERY 8 HOURS ORAL 01/10/18 22:00 02/09/18 21:59 01/16/18 15:06 Insulin Aspart (NovoLOG) BEFORE MEALS AND HS SUBQ 01/10/18 21:00 02/09/18 20:59 01/16/18 17:05 Metoprolol Succinate (Toprol XL) 200 mg DAILY ORAL 01/11/18 09:00 02/10/18 08:59 01/16/18 09:19 Morphine Sulfate (Morphine Sulfate) 2 mg Q4H PRN IVP Moderate Pain (Pain Scale 4-6) 01/10/18 18:15 01/17/18 18:14 01/13/18 00:41 Nitroglycerin (Ntg) 0.4 mg Q5M PRN SL Prn Chest Pain 01/10/18 18:15 02/09/18 18:14 Ondansetron HCl (Zofran) 4 mg Q6H PRN IVP Nausea & Vomiting 01/10/18 18:15 02/09/18 18:14 01/12/18 12:43 Polyethylene Glycol (Miralax) 17 gm DAILYPRN PRN ORAL Constipation 01/10/18 18:15 02/09/18 18:14 Pravastatin Sodium (Pravachol) 40 mg BEDTIME ORAL 01/10/18 21:00 02/09/18 20:59 01/15/18 20:37 Sevelamer Carbonate (Renvela) 800 mg THREE TIMES A DAY ORAL 01/11/18 09:00 02/10/18 08:59 01/16/18 17:02 Temazepam (Restoril) 15 mg HSPRN PRN ORAL Insomnia 01/10/18 18:15 01/17/18 18:14 Vancomycin HCl (Vanco rx to dose) 1 ea DAILY PRN MISC per rx protocol 01/10/18 19:30 02/09/18 19:29 Allergies: Coded Allergies: NO KNOWN ALLERGIES (Verified Allergy, Unknown, 12/04/17) ROS Limited/Unobtainable: No Constitutional: Reports: no symptoms HEENT: Reports: no symptoms Cardiovascular: Reports: no symptoms Respiratory: Reports: no symptoms Gastrointestinal/Abdominal: Reports: no symptoms Genitourinary: Reports: no symptoms Neurologic/Psychiatric: Reports: no symptoms Subjective 52 YO M admitted with chief complaint right foot pain. Now osteomyelitis. Cover for Int Chuck-Dr Duong. [facility] Objective Last Vital Signs Date Time Temp Pulse Resp B/P (MAP) Pulse Ox O2 Delivery O2 Flow Rate FiO2 01/16/18 16:00 97.7 74 18 123/73 (90) 99 01/16/18 09:00 Room Air 01/15/18 08:23 21 Laboratory Tests Test 01/16/18 07:05 White Blood Count 6.5 K/UL (4.8-10.8) Red Blood Count 3.55 M/UL (4.70-6.10) L Hemoglobin 11.7 G/DL (14.2-18.0) L Hematocrit 35.2 % (42.0-52.0) L Mean Corpuscular Volume 99 FL (80-99) Mean Corpuscular Hemoglobin 32.8 PG (27.0-31.0) H Mean Corpuscular Hemoglobin Concent 33.1 G/DL (32.0-36.0) Red Cell Distribution Width 15.5 % (11.6-14.8) H Platelet Count 298 K/UL (150-450) Mean Platelet Volume 6.4 FL (6.5-10.1) L Neutrophils (%) (Auto) 60.7 % (45.0-75.0) Lymphocytes (%) (Auto) 24.8 % (20.0-45.0) Monocytes (%) (Auto) 11.2 % (1.0-10.0) H Eosinophils (%) (Auto) 1.9 % (0.0-3.0) Basophils (%) (Auto) 1.4 % (0.0-2.0) Sodium Level 134 MMOL/L (136-145) L Potassium Level 5.1 MMOL/L (3.5-5.1) Chloride Level 94 MMOL/L (98-107) L Carbon Dioxide Level 29 MMOL/L (21-32) Anion Gap 11 mmol/L (5-15) Blood Urea Nitrogen 51 mg/dL (7-18) H Creatinine 12.6 MG/DL (0.55-1.30) H Estimat Glomerular Filtration Rate 5.1 mL/min (>60) Glucose Level 133 MG/DL (74-106) H Calcium Level 8.4 MG/DL (8.5-10.1) L Intake and Output 01/15/18 01/16/18 18:59 06:59 Intake Total 800 ml 1575 ml Output Total 3530 ml Balance 800 ml -1955 ml Intake Oral 720 ml IV Total 55 ml Other 800 ml 800 ml Output Urine Total 0 ml Drainage Total 30 ml Hemodialysis UF 3500 ml # Voids 4 2 # Bowel Movements 1 Objective General Appearance: WD/WN, no apparent distress, alert EENT: PERRL/EOMI, normal ENT inspection, TMs normal Neck: non-tender, normal alignment, supple, normal inspection Cardiovascular: normal peripheral pulses, normal rate, regular rhythm, no gallop/murmur, no JVD Respiratory/Chest: chest wall non-tender, lungs clear, normal breath sounds, no respiratory distress, no accessory muscle use Abdomen: normal bowel sounds, non tender, soft, no organomegaly, no mass Extremities: normal range of motion, other - right foot pain Edema: trace edema Neurologic: cargo trimmer II-XII grossly normal, no motor/sensory deficits Skin: normal pigmentation, warm/dry Assessment/Plan Problem List: (1) Right foot pain (2) Acute osteomyelitis of metatarsal bone of right foot Assessment & Plan: Non surgical-see podiatry note. Continue cefepime and vanco. Will require Antibiotics for 6 weeks per ID note (3) Diabetes mellitus Assessment & Plan: Continue insulin sliding scale. (4) ESRD (end stage renal disease) Assessment & Plan: See nephrology note. Hemodialysis 01/12/18 (5) HTN (hypertension) Assessment & Plan: continue hydralazine, metoprolol and norvasc. Assessment/Plan Discharge plan: retirement fac for 6 weeks IV antibiotic Miles Lobo MD Jan 16, 2018 18:03
[2018-01-16 20:00] VITALS: BP 136/91
--- NOTE | 2018-01-16 20:33 | Nephrology Progress Note ---
Assessment/Plan Assessment 1.ESRD 2.Anemia of ckd 3.ASHLEY 4.PVD 5.HTN 6.None healing foot ulcer Plan dialysis as schedule continue epogen monitoring phos iv anabiotic Subjective Subjective no complaints Objective Objective Last 24 Hour Vital Signs Date Time Temp Pulse Resp B/P (MAP) Pulse Ox O2 Delivery O2 Flow Rate FiO2 01/16/18 16:00 97.7 74 18 123/73 (90) 99 01/16/18 15:06 133/79 01/16/18 12:00 98.0 81 18 133/79 (97) 96 01/16/18 09:19 78 130/77 01/16/18 09:19 78 130/77 01/16/18 09:00 Room Air 01/16/18 08:00 97.3 78 18 130/77 (94) 97 01/16/18 05:43 133/75 01/16/18 04:00 97.9 77 18 133/75 (94) 96 01/16/18 00:00 97.7 75 18 143/85 (104) 100 01/15/18 21:35 134/79 01/15/18 21:00 Room Air Intake and Output 01/15/18 01/16/18 19:00 07:00 Intake Total 800 ml 1575 ml Output Total 3530 ml Balance 800 ml -1955 ml Intake Oral 720 ml IV Total 55 ml Other 800 ml 800 ml Output Urine Total 0 ml Drainage Total 30 ml Hemodialysis UF 3500 ml # Voids 4 2 # Bowel Movements 1 Laboratory Tests 01/16/18 07:05: White Blood Count 6.5, Red Blood Count 3.55L, Hemoglobin 11.7L, Hematocrit 35.2L , Mean Corpuscular Volume 99, Mean Corpuscular Hemoglobin 32.8H, Mean Corpuscular Hemoglobin Concent 33.1, Red Cell Distribution Width 15.5H, Platelet Count 298, Mean Platelet Volume 6.4L, Neutrophils (%) (Auto) 60.7, Lymphocytes (%) (Auto) 24.8, Monocytes (%) (Auto) 11.2H, Eosinophils (%) (Auto) 1.9, Basophils (%) (Auto) 1.4, Sodium Level 134L, Potassium Level 5.1, Chloride Level 94L, Carbon Dioxide Level 29, Anion Gap 11, Blood Urea Nitrogen 51H, Creatinine 12.6H, Estimat Glomerular Filtration Rate 5.1, Glucose Level 133H, Calcium Level 8.4L Height (Feet): 6 Height (Inches): 0.00 Weight (Pounds): 194 Objective General Appearance: WD/WN, no acute distress HEENT: normocephalic, atraumatic, anicteric, mucous membranes moist, PERRL, EOMI, pharynx normal, supple, no JVD Respiratory/Chest: chest wall non-tender, lungs clear, normal breath sounds, no respiratory distress, no accessory muscle use Cardiovascular: normal peripheral pulses, normal rate, regular rhythm, no gallop/murmur, no JVD Abdomen: normal bowel sounds, soft, non tender, no organomegaly, non distended , no mass, no scars Genitourinary: normal external genitalia Extremities: no cyanosis, no clubbing Skin: no rash, no lesions, ulcers, other - right stump wound with open skin draining serosanginous fluids Neurologic/Psychiatric: alert, oriented x 3, responsive Lymphatic: no neck adenopathy, no groin adenopathy Musculoskeletal: normal muscle bulk, no effusion Tessa Schwartz MD Jan 16, 2018 20:33
[2018-01-16] MEDS ORDERED: Epogen (for ESRD on dialysis) SUBQ SCH (21:00)
[2018-01-16] MEDS: Cefepime 500mg in D5W 55ml IVPB SCH (21:10)
--- NOTE | 2018-01-16 23:15 | General Progress Note ---
Assessment/Plan Problem List: (1) Encephalopathy ICD Codes: G93.40 - Encephalopathy, unspecified SNOMED: [id number] (2) mdd Status: stable, progressing Assessment/Plan lexapro 10mg qam provided ro/st Subjective Neurologic/Psychiatric: Reports: anxiety, depressed, emotional problems Allergies: Coded Allergies: NO KNOWN ALLERGIES (Verified Allergy, Unknown, 12/04/17) Subjective The pt c/o weakness Objective Last 24 Hour Vital Signs Date Time Temp Pulse Resp B/P (MAP) Pulse Ox O2 Delivery O2 Flow Rate FiO2 01/16/18 21:13 136/91 01/16/18 21:00 Room Air 01/16/18 20:00 97.7 71 20 136/91 (106) 100 01/16/18 16:00 97.7 74 18 123/73 (90) 99 01/16/18 15:06 133/79 01/16/18 12:00 98.0 81 18 133/79 (97) 96 01/16/18 09:19 78 130/77 01/16/18 09:19 78 130/77 01/16/18 09:00 Room Air 01/16/18 08:00 97.3 78 18 130/77 (94) 97 01/16/18 05:43 133/75 01/16/18 04:00 97.9 77 18 133/75 (94) 96 01/16/18 00:00 97.7 75 18 143/85 (104) 100 Intake and Output 01/15/18 01/16/18 19:00 07:00 Intake Total 800 ml 1575 ml Output Total 3530 ml Balance 800 ml -1955 ml Intake Oral 720 ml IV Total 55 ml Other 800 ml 800 ml Output Urine Total 0 ml Drainage Total 30 ml Hemodialysis UF 3500 ml # Voids 4 2 # Bowel Movements 1 Laboratory Tests 01/16/18 07:05: White Blood Count 6.5, Red Blood Count 3.55L, Hemoglobin 11.7L, Hematocrit 35.2L , Mean Corpuscular Volume 99, Mean Corpuscular Hemoglobin 32.8H, Mean Corpuscular Hemoglobin Concent 33.1, Red Cell Distribution Width 15.5H, Platelet Count 298, Mean Platelet Volume 6.4L, Neutrophils (%) (Auto) 60.7, Lymphocytes (%) (Auto) 24.8, Monocytes (%) (Auto) 11.2H, Eosinophils (%) (Auto) 1.9, Basophils (%) (Auto) 1.4, Sodium Level 134L, Potassium Level 5.1, Chloride Level 94L, Carbon Dioxide Level 29, Anion Gap 11, Blood Urea Nitrogen 51H, Creatinine 12.6H, Estimat Glomerular Filtration Rate 5.1, Glucose Level 133H, Calcium Level 8.4L Height (Feet): 6 Height (Inches): 0.00 Weight (Pounds): 194 General Appearance: no apparent distress, alert Neurologic: oriented x 3, responsive, depressed affect Leora Bishop MD Jan 16, 2018 23:15
[2018-01-17] VITALS: BP 123/72
[2018-01-17 04:00] VITALS: BP 132/74
[2018-01-17] MEDS: HydrALAZINE 50mg tab ORAL SCH ×3 (06:01→20:46)
[2018-01-17] MEDS: NovoLOG Insulin Flexpen SUBQ SCH ×4 (06:02→20:47)
[2018-01-17 06:40] LABS: EOSINOPHILS % (AUTO) 2.1 % (0.0-3.0); HEMATOCRIT 33.7 % (42.0-52.0); LYMPHOCYTES % (AUTO) 23.9 % (20.0-45.0); MEAN CORPUSCULAR VOLUME 98 FL (80-99); MONOCYTES % (AUTO) 11.4 % (1.0-10.0); NEUTROPHILS % (AUTO) 61.6 % (45.0-75.0); PLATELET COUNT 268 K/UL (150-450); RED BLOOD COUNT 3.43 M/UL (4.70-6.10); RED CELL DISTRIBUTION WIDTH 15.4 % (11.6-14.8); WHITE BLOOD COUNT 6.5 K/UL (4.8-10.8)
[2018-01-17 06:47] LABS: ANION GAP 10 mmol/L (5-15); BLOOD UREA NITROGEN 62 mg/dL (7-18); CALCIUM 7.9 MG/DL (8.5-10.1); CARBON DIOXIDE 30 MMOL/L (21-32); CHLORIDE 94 MMOL/L (98-107); CREATININE 14.1 MG/DL (0.55-1.30); POTASSIUM 5.3 MMOL/L (3.5-5.1); SODIUM 134 MMOL/L (136-145)
[2018-01-17 08:00] VITALS: BP 125/71
[2018-01-17] MEDS: Aspirin Baby 81mg ORAL SCH (09:27)
[2018-01-17] MEDS: Fluconazole 100mg tab ORAL SCH (09:28)
[2018-01-17] MEDS: Metoprolol Succinate XL 100mg tab ORAL SCH (09:31)
[2018-01-17] MEDS: Renvela 800mg Pkt ORAL SCH ×3 (09:32→16:59)
[2018-01-17] MEDS: Heparin 5000 units/ml inj SUBQ SCH ×2 (09:35→20:48)
--- NOTE | 2018-01-17 10:41 | Pulmonology Progress Note ---
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 (3) ESRD (end stage renal disease) (4) HTN (hypertension) (5) Diabetes mellitus Assessment/Plan wound vac in place improving continue abx check cultures f/u podiatry recommendations sliding scale diabetic diet HD by veterans service officer check electrolytes need Hepatitis profile dc planning Subjective ROS Limited/Unobtainable: No Constitutional: Reports: no symptoms HEENT: Repors: no symptoms Respiratory: Reports: no symptoms Allergies: Coded Allergies: NO KNOWN ALLERGIES (Verified Allergy, Unknown, 12/04/17) Objective Last 24 Hour Vital Signs Date Time Temp Pulse Resp B/P (MAP) Pulse Ox O2 Delivery O2 Flow Rate FiO2 01/17/18 09:52 Room Air 01/17/18 09:31 70 118/85 01/17/18 09:30 70 118/85 01/17/18 08:00 97.5 70 18 125/71 (89) 100 01/17/18 06:01 132/74 01/17/18 04:00 98.4 76 20 132/74 (93) 100 01/17/18 00:00 97.9 70 20 123/72 (89) 100 01/16/18 21:13 136/91 01/16/18 21:00 Room Air 01/16/18 20:00 97.7 71 20 136/91 (106) 100 01/16/18 16:00 97.7 74 18 123/73 (90) 99 01/16/18 15:06 133/79 01/16/18 12:00 98.0 81 18 133/79 (97) 96 Intake and Output 01/16/18 01/17/18 19:00 07:00 Intake Total 1200 ml 295 ml Balance 1200 ml 295 ml Intake Oral 1200 ml 240 ml IV Total 55 ml # Voids 6 # Bowel Movements 1 General Appearance: WD/WN HEENT: normocephalic, atraumatic Respiratory/Chest: chest wall non-tender, lungs clear Cardiovascular: normal peripheral pulses, normal rate Abdomen: normal bowel sounds, soft, non tender Extremities: no cyanosis Skin: no rash Neurologic/Psychiatric: field servicer II-XII grossly normal Lymphatic: no neck adenopathy Laboratory Tests 01/17/18 05:40: White Blood Count 6.5, Red Blood Count 3.43L, Hemoglobin 11.0L, Hematocrit 33.7L , Mean Corpuscular Volume 98, Mean Corpuscular Hemoglobin 32.0H, Mean Corpuscular Hemoglobin Concent 32.6, Red Cell Distribution Width 15.4H, Platelet Count 268, Mean Platelet Volume 5.9L, Neutrophils (%) (Auto) 61.6, Lymphocytes (%) (Auto) 23.9, Monocytes (%) (Auto) 11.4H, Eosinophils (%) (Auto) 2.1, Basophils (%) (Auto) 1.0, Sodium Level 134L, Potassium Level 5.3H, Chloride Level 94L, Carbon Dioxide Level 30, Anion Gap 10, Blood Urea Nitrogen 62H, Creatinine 14.1H, Estimat Glomerular Filtration Rate 4.5, Glucose Level 137H, Calcium Level 7.9L 01/17/18 05:45: Hepatitis A IgM Antibody [Pending], Hepatitis B Surface Antigen [Pending], Hepatitis B Core IgM Antibody [Pending], Hepatitis C Antibody [Pending] Current Medications Medications (Trade) Dose Ordered Sig/Felix Route PRN Reason Start Time Stop Time Status Last Admin Dose Admin Acetaminophen (Tylenol) 650 mg Q4H PRN ORAL fever 01/10/18 18:15 02/09/18 18:14 Amlodipine Besylate (Norvasc) 5 mg DAILY ORAL 01/11/18 09:00 02/10/18 08:59 01/17/18 09:30 Aspirin (ASA) 81 mg DAILY ORAL 01/11/18 09:00 02/10/18 08:59 01/17/18 09:27 Atorvastatin Calcium (Lipitor) 10 mg BEDTIME ORAL 01/10/18 21:00 02/09/18 20:59 01/16/18 21:12 Cefepime HCl 500 mg/Dextrose 55 ml @ 110 mls/hr Q24H IVPB 01/11/18 21:00 01/18/18 20:59 01/16/18 21:10 Dextrose (Dextrose 50%) 25 ml Q30M PRN IV Hypoglycemia 01/10/18 18:15 02/09/18 18:14 Dextrose (Dextrose 50%) 50 ml Q30M PRN IV Hypoglycemia 01/10/18 18:30 02/09/18 18:29 Epoetin Daniel (Procrit (for ESRD on dialysis)) 5,000 units TUE-TUE-TUE SUBQ 01/16/18 21:00 02/15/18 20:59 01/16/18 21:12 Escitalopram Oxalate (Lexapro) 10 mg DAILY ORAL 01/11/18 09:00 02/10/18 08:59 01/17/18 09:33 Fluconazole (Diflucan) 200 mg DAILY ORAL 01/15/18 09:00 01/22/18 08:59 01/17/18 09:28 Heparin Sodium (Porcine) (Heparin 5000 units/ml) 5,000 units EVERY 12 HOURS SUBQ 01/10/18 21:00 02/09/18 20:59 01/17/18 09:35 Hydralazine HCl (Apresoline) 50 mg EVERY 8 HOURS ORAL 01/10/18 22:00 02/09/18 21:59 01/17/18 06:01 Insulin Aspart (NovoLOG) BEFORE MEALS AND HS SUBQ 01/10/18 21:00 02/09/18 20:59 01/17/18 06:02 Metoprolol Succinate (Toprol XL) 200 mg DAILY ORAL 01/11/18 09:00 02/10/18 08:59 01/17/18 09:31 Morphine Sulfate (Morphine Sulfate) 2 mg Q4H PRN IVP Moderate Pain (Pain Scale 4-6) 01/10/18 18:15 01/17/18 18:14 01/13/18 00:41 Nitroglycerin (Ntg) 0.4 mg Q5M PRN SL Prn Chest Pain 01/10/18 18:15 02/09/18 18:14 Ondansetron HCl (Zofran) 4 mg Q6H PRN IVP Nausea & Vomiting 01/10/18 18:15 02/09/18 18:14 01/12/18 12:43 Polyethylene Glycol (Miralax) 17 gm DAILYPRN PRN ORAL Constipation 01/10/18 18:15 02/09/18 18:14 Pravastatin Sodium (Pravachol) 40 mg BEDTIME ORAL 01/10/18 21:00 02/09/18 20:59 01/16/18 21:13 Sevelamer Carbonate (Renvela) 800 mg THREE TIMES A DAY ORAL 01/11/18 09:00 02/10/18 08:59 01/17/18 09:32 Temazepam (Restoril) 15 mg HSPRN PRN ORAL Insomnia 01/10/18 18:15 01/17/18 18:14 Vancomycin HCl (Vanco rx to dose) 1 ea DAILY PRN MISC per rx protocol 01/10/18 19:30 02/09/18 19:29 Jorge Anaya MD Jan 17, 2018 10:40
[2018-01-17 12:00] VITALS: BP 141/75
--- NOTE | 2018-01-17 14:36 | General Progress Note ---
Assessment/Plan Problem List: (1) Encephalopathy ICD Codes: G93.40 - Encephalopathy, unspecified SNOMED: 44018669 (2) mdd Status: stable, progressing Assessment/Plan lexapro 10mg qam provided ro/st Subjective Date patient seen: Jan 17, 2018 Neurologic/Psychiatric: Reports: anxiety, depressed, emotional problems Allergies: Coded Allergies: NO KNOWN ALLERGIES (Verified Allergy, Unknown, 12/04/17) Subjective The pt c/o weakness and some anxiety Objective Last 24 Hour Vital Signs Date Time Temp Pulse Resp B/P (MAP) Pulse Ox O2 Delivery O2 Flow Rate FiO2 01/17/18 14:31 141/75 01/17/18 12:00 97.7 73 18 141/75 (97) 100 01/17/18 09:52 Room Air 01/17/18 09:31 70 118/85 01/17/18 09:30 70 118/85 01/17/18 08:00 97.5 70 18 125/71 (89) 100 01/17/18 06:01 132/74 01/17/18 04:00 98.4 76 20 132/74 (93) 100 01/17/18 00:00 97.9 70 20 123/72 (89) 100 01/16/18 21:13 136/91 01/16/18 21:00 Room Air 01/16/18 20:00 97.7 71 20 136/91 (106) 100 01/16/18 16:00 97.7 74 18 123/73 (90) 99 01/16/18 15:06 133/79 Intake and Output 01/16/18 01/17/18 19:00 07:00 Intake Total 1200 ml 295 ml Balance 1200 ml 295 ml Intake Oral 1200 ml 240 ml IV Total 55 ml # Voids 6 # Bowel Movements 1 Laboratory Tests 01/17/18 05:40: White Blood Count 6.5, Red Blood Count 3.43L, Hemoglobin 11.0L, Hematocrit 33.7L , Mean Corpuscular Volume 98, Mean Corpuscular Hemoglobin 32.0H, Mean Corpuscular Hemoglobin Concent 32.6, Red Cell Distribution Width 15.4H, Platelet Count 268, Mean Platelet Volume 5.9L, Neutrophils (%) (Auto) 61.6, Lymphocytes (%) (Auto) 23.9, Monocytes (%) (Auto) 11.4H, Eosinophils (%) (Auto) 2.1, Basophils (%) (Auto) 1.0, Sodium Level 134L, Potassium Level 5.3H, Chloride Level 94L, Carbon Dioxide Level 30, Anion Gap 10, Blood Urea Nitrogen 62H, Creatinine 14.1H, Estimat Glomerular Filtration Rate 4.5, Glucose Level 137H, Calcium Level 7.9L 01/17/18 05:45: Hepatitis A IgM Antibody [Pending], Hepatitis B Surface Antigen [Pending], Hepatitis B Core IgM Antibody [Pending], Hepatitis C Antibody [Pending] Height (Feet): 6 Height (Inches): 0.00 Weight (Pounds): 193 General Appearance: no apparent distress, alert Neurologic: oriented x 3, responsive, depressed affect Leora Bishop MD Jan 17, 2018 14:36
--- NOTE | 2018-01-17 15:44 | Infectious Diseases Prog Note ---
Assessment/Plan Problems: (1) Acute osteomyelitis of metatarsal bone of right foot Assessment & Plan: previously grew MSSA , providenciae rettgeri and proteus mirabilis, underwent revision of his right stump wound after revascularization at [facility] . was discharged on meropenem and cefazoline for 6 weeks . unclear whether he was receiving any antibiotics at the HD center . MRI of the right foot now showed possible distal metatarsal bones osteomyelitis , and wound culture grew serratia marcescens and summer glabrata , so will continue vancomycin and cefepime for 6 weeks with HD in supervised environment such as SNF to ensure receiving antibiotics since he is noncompliant, appreciate palm gatherer input . add fluconazole high dose to cover summer glabrata for 6 weeks too. monitor weekly labs while on antibiotics with CBC, CMP follow up with wound care and podiatry service here at [facility] [place] after discharge . (2) Ulcer of amputation stump of foot Assessment & Plan: with purulent discharge , and possible under lying osteomyelitis, continue wide spectrum antibiotics for 6 weeks course of treatment . (3) Sepsis Assessment & Plan: due to the above, blood culture remains negative , continue wide spectrum antibiotics (4) Diabetes mellitus Assessment & Plan: recommend tight glycemic control to keep blood glucose between 100-140 (5) ESRD (end stage renal disease) Assessment & Plan: on HD renal service is following Subjective Constitutional: Reports: no symptoms HEENT: Reports: no symptoms Respiratory: Reports: no symptoms Breasts: Reports: no symptoms Cardiovascular: Reports: no symptoms Gastrointestinal/Abdominal: Reports: no symptoms Genitourinary: Reports: no symptoms Neurologic: Reports: no symptoms Psychiatric: Reports: no symptoms Skin: Reports: no symptoms Endocrine: Reports: no symptoms Hematologic: Reports: no symptoms Musculoskeletal: Reports: no symptoms Allergies: Coded Allergies: NO KNOWN ALLERGIES (Verified Allergy, Unknown, 12/04/17) Subjective he was comfortable lying in bed, getting hemodialysis. Objective Vital Signs Last 24 Hour Vital Signs Date Time Temp Pulse Resp B/P (MAP) Pulse Ox O2 Delivery O2 Flow Rate FiO2 01/17/18 14:31 141/75 01/17/18 12:00 97.7 73 18 141/75 (97) 100 01/17/18 09:52 Room Air 01/17/18 09:31 70 118/85 01/17/18 09:30 70 118/85 01/17/18 08:00 97.5 70 18 125/71 (89) 100 01/17/18 06:01 132/74 01/17/18 04:00 98.4 76 20 132/74 (93) 100 01/17/18 00:00 97.9 70 20 123/72 (89) 100 01/16/18 21:13 136/91 01/16/18 21:00 Room Air 01/16/18 20:00 97.7 71 20 136/91 (106) 100 01/16/18 16:00 97.7 74 18 123/73 (90) 99 Height (Feet): 6 Height (Inches): 0.00 Weight (Pounds): 193 General Appearance: WD/WN, no acute distress HEENT: normocephalic, atraumatic, anicteric, mucous membranes moist, PERRL, EOMI, pharynx normal, supple, no JVD Respiratory/Chest: chest wall non-tender, lungs clear, normal breath sounds, no respiratory distress, no accessory muscle use Cardiovascular: normal peripheral pulses, normal rate, regular rhythm, no gallop/murmur, no JVD Abdomen: normal bowel sounds, soft, non tender, no organomegaly, non distended , no mass, no scars Extremities: no cyanosis, no clubbing Skin: no rash, no lesions, no ulcers Neurologic/Psychiatric: alert, oriented x 3, responsive Laboratory Tests Test 01/17/18 05:40 01/17/18 05:45 White Blood Count 6.5 K/UL (4.8-10.8) Red Blood Count 3.43 M/UL (4.70-6.10) L Hemoglobin 11.0 G/DL (14.2-18.0) L Hematocrit 33.7 % (42.0-52.0) L Mean Corpuscular Volume 98 FL (80-99) Mean Corpuscular Hemoglobin 32.0 PG (27.0-31.0) H Mean Corpuscular Hemoglobin Concent 32.6 G/DL (32.0-36.0) Red Cell Distribution Width 15.4 % (11.6-14.8) H Platelet Count 268 K/UL (150-450) Mean Platelet Volume 5.9 FL (6.5-10.1) L Neutrophils (%) (Auto) 61.6 % (45.0-75.0) Lymphocytes (%) (Auto) 23.9 % (20.0-45.0) Monocytes (%) (Auto) 11.4 % (1.0-10.0) H Eosinophils (%) (Auto) 2.1 % (0.0-3.0) Basophils (%) (Auto) 1.0 % (0.0-2.0) Sodium Level 134 MMOL/L (136-145) L Potassium Level 5.3 MMOL/L (3.5-5.1) H Chloride Level 94 MMOL/L (98-107) L Carbon Dioxide Level 30 MMOL/L (21-32) Anion Gap 10 mmol/L (5-15) Blood Urea Nitrogen 62 mg/dL (7-18) H Creatinine 14.1 MG/DL (0.55-1.30) H Estimat Glomerular Filtration Rate 4.5 mL/min (>60) Glucose Level 137 MG/DL (74-106) H Calcium Level 7.9 MG/DL (8.5-10.1) L Hepatitis A IgM Antibody Pending Hepatitis B Surface Antigen Pending Hepatitis B Core IgM Antibody Pending Hepatitis C Antibody Pending Current Medications Medications (Trade) Dose Ordered Sig/Felix Route PRN Reason Start Time Stop Time Status Last Admin Dose Admin Acetaminophen (Tylenol) 650 mg Q4H PRN ORAL fever 01/10/18 18:15 02/09/18 18:14 Amlodipine Besylate (Norvasc) 5 mg DAILY ORAL 01/11/18 09:00 02/10/18 08:59 01/17/18 09:30 Aspirin (ASA) 81 mg DAILY ORAL 01/11/18 09:00 02/10/18 08:59 01/17/18 09:27 Atorvastatin Calcium (Lipitor) 10 mg BEDTIME ORAL 01/10/18 21:00 02/09/18 20:59 01/16/18 21:12 Cefepime HCl 500 mg/Dextrose 55 ml @ 110 mls/hr Q24H IVPB 01/11/18 21:00 01/18/18 20:59 01/16/18 21:10 Dextrose (Dextrose 50%) 25 ml Q30M PRN IV Hypoglycemia 01/10/18 18:15 02/09/18 18:14 Dextrose (Dextrose 50%) 50 ml Q30M PRN IV Hypoglycemia 01/10/18 18:30 02/09/18 18:29 Epoetin Daniel (Procrit (for ESRD on dialysis)) 5,000 units TUE-TUE-TUE SUBQ 01/16/18 21:00 02/15/18 20:59 01/16/18 21:12 Escitalopram Oxalate (Lexapro) 10 mg DAILY ORAL 01/11/18 09:00 02/10/18 08:59 01/17/18 09:33 Fluconazole (Diflucan) 200 mg DAILY ORAL 01/15/18 09:00 01/22/18 08:59 01/17/18 09:28 Heparin Sodium (Porcine) (Heparin 5000 units/ml) 5,000 units EVERY 12 HOURS SUBQ 01/10/18 21:00 02/09/18 20:59 01/17/18 09:35 Hydralazine HCl (Apresoline) 50 mg EVERY 8 HOURS ORAL 01/10/18 22:00 02/09/18 21:59 01/17/18 14:31 Insulin Aspart (NovoLOG) BEFORE MEALS AND HS SUBQ 01/10/18 21:00 02/09/18 20:59 01/17/18 11:57 Metoprolol Succinate (Toprol XL) 200 mg DAILY ORAL 01/11/18 09:00 02/10/18 08:59 01/17/18 09:31 Morphine Sulfate (Morphine Sulfate) 2 mg Q4H PRN IVP Moderate Pain (Pain Scale 4-6) 01/10/18 18:15 01/17/18 18:14 01/13/18 00:41 Nitroglycerin (Ntg) 0.4 mg Q5M PRN SL Prn Chest Pain 01/10/18 18:15 02/09/18 18:14 Ondansetron HCl (Zofran) 4 mg Q6H PRN IVP Nausea & Vomiting 01/10/18 18:15 02/09/18 18:14 01/12/18 12:43 Polyethylene Glycol (Miralax) 17 gm DAILYPRN PRN ORAL Constipation 01/10/18 18:15 02/09/18 18:14 Pravastatin Sodium (Pravachol) 40 mg BEDTIME ORAL 01/10/18 21:00 02/09/18 20:59 01/16/18 21:13 Sevelamer Carbonate (Renvela) 800 mg THREE TIMES A DAY ORAL 01/11/18 09:00 02/10/18 08:59 01/17/18 14:32 Temazepam (Restoril) 15 mg HSPRN PRN ORAL Insomnia 01/10/18 18:15 01/17/18 18:14 Vancomycin HCl (Vanco rx to dose) 1 ea DAILY PRN MISC per rx protocol 01/10/18 19:30 02/09/18 19:29 Cira Ceja M.D. Jan 17, 2018 15:44
[2018-01-17 16:00] VITALS: BP 123/64
[2018-01-17] MEDS ORDERED: CEFEPIME-D1 GM/50 ML IVPB (17:18)
[2018-01-17] MEDS ORDERED: PROCRIT20000 UNI2 SUBQ (17:18)
[2018-01-17] MEDS ORDERED: RESTORIL15 MG ORAL (17:18)
[2018-01-17] MEDS ORDERED: DIFLUCAN100 MG ORAL (17:18)
--- NOTE | 2018-01-17 17:20 | Internal Med Progress Note ---
Subjective Date of Service: Jan 17, 2018 Physician Name Miles Lobo Attending Physician Shahram Duong MD Current Medications Medications (Trade) Dose Ordered Sig/Felix Route PRN Reason Start Time Stop Time Status Last Admin Dose Admin Acetaminophen (Tylenol) 650 mg Q4H PRN ORAL fever 01/10/18 18:15 02/09/18 18:14 Amlodipine Besylate (Norvasc) 5 mg DAILY ORAL 01/11/18 09:00 02/10/18 08:59 01/17/18 09:30 Aspirin (ASA) 81 mg DAILY ORAL 01/11/18 09:00 02/10/18 08:59 01/17/18 09:27 Atorvastatin Calcium (Lipitor) 10 mg BEDTIME ORAL 01/10/18 21:00 02/09/18 20:59 01/16/18 21:12 Cefepime HCl 500 mg/Dextrose 55 ml @ 110 mls/hr Q24H IVPB 01/11/18 21:00 01/22/18 20:59 01/16/18 21:10 Dextrose (Dextrose 50%) 25 ml Q30M PRN IV Hypoglycemia 01/10/18 18:15 02/09/18 18:14 Dextrose (Dextrose 50%) 50 ml Q30M PRN IV Hypoglycemia 01/10/18 18:30 02/09/18 18:29 Epoetin Daniel (Procrit (for ESRD on dialysis)) 5,000 units TUE-TUE-TUE SUBQ 01/16/18 21:00 02/15/18 20:59 01/16/18 21:12 Escitalopram Oxalate (Lexapro) 10 mg DAILY ORAL 01/11/18 09:00 02/10/18 08:59 01/17/18 09:33 Fluconazole (Diflucan) 200 mg DAILY ORAL 01/15/18 09:00 01/22/18 08:59 01/17/18 09:28 Heparin Sodium (Porcine) (Heparin 5000 units/ml) 5,000 units EVERY 12 HOURS SUBQ 01/10/18 21:00 02/09/18 20:59 01/17/18 09:35 Hydralazine HCl (Apresoline) 50 mg EVERY 8 HOURS ORAL 01/10/18 22:00 02/09/18 21:59 01/17/18 14:31 Insulin Aspart (NovoLOG) BEFORE MEALS AND HS SUBQ 01/10/18 21:00 02/09/18 20:59 01/17/18 16:59 Metoprolol Succinate (Toprol XL) 200 mg DAILY ORAL 01/11/18 09:00 02/10/18 08:59 01/17/18 09:31 Morphine Sulfate (Morphine Sulfate) 2 mg Q4H PRN IVP Moderate Pain (Pain Scale 4-6) 01/10/18 18:15 01/17/18 18:14 01/13/18 00:41 Nitroglycerin (Ntg) 0.4 mg Q5M PRN SL Prn Chest Pain 01/10/18 18:15 02/09/18 18:14 Ondansetron HCl (Zofran) 4 mg Q6H PRN IVP Nausea & Vomiting 01/10/18 18:15 02/09/18 18:14 01/12/18 12:43 Polyethylene Glycol (Miralax) 17 gm DAILYPRN PRN ORAL Constipation 01/10/18 18:15 02/09/18 18:14 Pravastatin Sodium (Pravachol) 40 mg BEDTIME ORAL 01/10/18 21:00 02/09/18 20:59 01/16/18 21:13 Sevelamer Carbonate (Renvela) 800 mg THREE TIMES A DAY ORAL 01/11/18 09:00 02/10/18 08:59 01/17/18 14:32 Temazepam (Restoril) 15 mg HSPRN PRN ORAL Insomnia 01/10/18 18:15 01/17/18 18:14 Vancomycin HCl (Vanco rx to dose) 1 ea DAILY PRN MISC per rx protocol 01/10/18 19:30 02/09/18 19:29 Allergies: Coded Allergies: NO KNOWN ALLERGIES (Verified Allergy, Unknown, 12/04/17) ROS Limited/Unobtainable: No Constitutional: Reports: no symptoms HEENT: Reports: no symptoms Cardiovascular: Reports: no symptoms Respiratory: Reports: no symptoms Gastrointestinal/Abdominal: Reports: no symptoms Genitourinary: Reports: no symptoms Neurologic/Psychiatric: Reports: no symptoms Subjective 52 YO M admitted with chief complaint right foot pain. Now osteomyelitis. Cover for Int Med-Dr Duong. Await transfer to [facility] Objective Last Vital Signs Date Time Temp Pulse Resp B/P (MAP) Pulse Ox O2 Delivery O2 Flow Rate FiO2 01/17/18 16:00 97.9 71 18 123/64 (83) 98 01/17/18 09:52 Room Air 01/15/18 08:23 21 Laboratory Tests Test 01/17/18 05:40 01/17/18 05:45 White Blood Count 6.5 K/UL (4.8-10.8) Red Blood Count 3.43 M/UL (4.70-6.10) L Hemoglobin 11.0 G/DL (14.2-18.0) L Hematocrit 33.7 % (42.0-52.0) L Mean Corpuscular Volume 98 FL (80-99) Mean Corpuscular Hemoglobin 32.0 PG (27.0-31.0) H Mean Corpuscular Hemoglobin Concent 32.6 G/DL (32.0-36.0) Red Cell Distribution Width 15.4 % (11.6-14.8) H Platelet Count 268 K/UL (150-450) Mean Platelet Volume 5.9 FL (6.5-10.1) L Neutrophils (%) (Auto) 61.6 % (45.0-75.0) Lymphocytes (%) (Auto) 23.9 % (20.0-45.0) Monocytes (%) (Auto) 11.4 % (1.0-10.0) H Eosinophils (%) (Auto) 2.1 % (0.0-3.0) Basophils (%) (Auto) 1.0 % (0.0-2.0) Sodium Level 134 MMOL/L (136-145) L Potassium Level 5.3 MMOL/L (3.5-5.1) H Chloride Level 94 MMOL/L (98-107) L Carbon Dioxide Level 30 MMOL/L (21-32) Anion Gap 10 mmol/L (5-15) Blood Urea Nitrogen 62 mg/dL (7-18) H Creatinine 14.1 MG/DL (0.55-1.30) H Estimat Glomerular Filtration Rate 4.5 mL/min (>60) Glucose Level 137 MG/DL (74-106) H Calcium Level 7.9 MG/DL (8.5-10.1) L Hepatitis A IgM Antibody Pending Hepatitis B Surface Antigen Pending Hepatitis B Core IgM Antibody Pending Hepatitis C Antibody Pending Intake and Output 01/16/18 01/17/18 18:59 06:59 Intake Total 1200 ml 295 ml Balance 1200 ml 295 ml Intake Oral 1200 ml 240 ml IV Total 55 ml # Voids 6 # Bowel Movements 1 Objective General Appearance: WD/WN, no apparent distress, alert EENT: PERRL/EOMI, normal ENT inspection, TMs normal Neck: non-tender, normal alignment, supple, normal inspection Cardiovascular: normal peripheral pulses, normal rate, regular rhythm, no gallop/murmur, no JVD Respiratory/Chest: chest wall non-tender, lungs clear, normal breath sounds, no respiratory distress, no accessory muscle use Abdomen: normal bowel sounds, non tender, soft, no organomegaly, no mass Extremities: normal range of motion, other - right foot pain Edema: trace edema Neurologic: creosoting engineer II-XII grossly normal, no motor/sensory deficits Skin: normal pigmentation, warm/dry Assessment/Plan Problem List: (1) Right foot pain (2) Acute osteomyelitis of metatarsal bone of right foot Assessment & Plan: Non surgical-see podiatry note. Continue cefepime and vanco. Will require Antibiotics for 6 weeks per ID note (3) Diabetes mellitus Assessment & Plan: Continue insulin sliding scale. (4) ESRD (end stage renal disease) Assessment & Plan: See nephrology note. Hemodialysis 01/12/18 (5) HTN (hypertension) Assessment & Plan: continue hydralazine, metoprolol and norvasc. Assessment/Plan Discharge plan: D/C to [facility]hab [facility] on [facility] for 6 weeks IV antibiotic Miles Lobo MD Jan 17, 2018 17:20
[2018-01-17 20:00] VITALS: BP 119/67
[2018-01-17] MEDS: Cefepime 500mg in D5W 55ml IVPB SCH (21:15)
[2018-01-18] VITALS: BP 95/63
[2018-01-18 04:00] VITALS: BP 122/58
[2018-01-18 06:27] LABS: BASOPHILS % (AUTO) 1.3 % (0.0-2.0); EOSINOPHILS % (AUTO) 2.4 % (0.0-3.0); HEMATOCRIT 37.1 % (42.0-52.0); HEMOGLOBIN 12.2 G/DL (14.2-18.0); LYMPHOCYTES % (AUTO) 24.8 % (20.0-45.0); MEAN CORPUSCULAR VOLUME 99 FL (80-99); MONOCYTES % (AUTO) 13.4 % (1.0-10.0); NEUTROPHILS % (AUTO) 58.1 % (45.0-75.0); PLATELET COUNT 265 K/UL (150-450); RED BLOOD COUNT 3.74 M/UL (4.70-6.10); RED CELL DISTRIBUTION WIDTH 15.5 % (11.6-14.8); WHITE BLOOD COUNT 5.3 K/UL (4.8-10.8)
[2018-01-18] MEDS: HydrALAZINE 50mg tab ORAL SCH ×2 (06:45→14:00)
[2018-01-18] MEDS: NovoLOG Insulin Flexpen SUBQ SCH ×2 (06:50→11:58)
[2018-01-18 07:13] LABS: ALANINE AMINOTRANSFERASE 26 U/L (12-78); ALBUMIN 3.2 G/DL (3.4-5.0); ALBUMIN/GLOBULIN RATIO 0.5 (1.0-2.7); ALKALINE PHOSPHATASE 133 U/L (46-116); ANION GAP 11 mmol/L (5-15); ASPARTATE AMINO TRANSFERASE 21 U/L (15-37); BILIRUBIN,TOTAL 0.4 MG/DL (0.2-1.0); BLOOD UREA NITROGEN 36 mg/dL (7-18); CALCIUM 9.1 MG/DL (8.5-10.1); CARBON DIOXIDE 29 MMOL/L (21-32); CHLORIDE 95 MMOL/L (98-107); CREATININE 10.1 MG/DL (0.55-1.30); POTASSIUM 5.3 MMOL/L (3.5-5.1); SODIUM 135 MMOL/L (136-145)
[2018-01-18 07:51] LABS: PHOSPHORUS 6.5 MG/DL (2.5-4.9)
[2018-01-18 08:00] VITALS: BP 138/69
--- NOTE | 2018-01-18 08:11 | Nephrology Progress Note ---
Assessment/Plan Assessment 1.ESRD 2.Anemia of ckd 3.ASHLEY 4.PVD 5.HTN 6.None healing foot ulcer Plan dialysis as schedule continue epogen monitoring phos iv anabiotic Subjective Constitutional: Reports: no symptoms HEENT: Reports: no symptoms Neurologic/Psychiatric: Reports: no symptoms Subjective no complaints Objective Objective Last 24 Hour Vital Signs Date Time Temp Pulse Resp B/P (MAP) Pulse Ox O2 Delivery O2 Flow Rate FiO2 01/18/18 06:45 122/58 01/18/18 04:00 97.9 73 20 122/58 (79) 97 01/18/18 00:00 98.1 74 20 95/63 (74) 98 01/17/18 21:00 Room Air 01/17/18 20:46 119/67 01/17/18 20:00 97.7 75 18 119/67 (84) 99 01/17/18 18:04 Room Air 01/17/18 16:00 97.9 71 18 123/64 (83) 98 01/17/18 14:31 141/75 01/17/18 12:00 97.7 73 18 141/75 (97) 100 01/17/18 09:52 Room Air 01/17/18 09:31 70 118/85 01/17/18 09:30 70 118/85 Intake and Output 01/17/18 01/18/18 19:00 07:00 Intake Total 420 ml Output Total 4000 ml Balance -3580 ml Intake Oral 420 ml Hemodialysis UF 4000 ml # Bowel Movements 1 Laboratory Tests 01/18/18 05:10: White Blood Count 5.3, Red Blood Count 3.74L, Hemoglobin 12.2L, Hematocrit 37.1L , Mean Corpuscular Volume 99, Mean Corpuscular Hemoglobin 32.7H, Mean Corpuscular Hemoglobin Concent 32.9, Red Cell Distribution Width 15.5H, Platelet Count 265, Mean Platelet Volume 6.3L, Neutrophils (%) (Auto) 58.1, Lymphocytes (%) (Auto) 24.8, Monocytes (%) (Auto) 13.4H, Eosinophils (%) (Auto) 2.4, Basophils (%) (Auto) 1.3, Sodium Level 135L, Potassium Level 5.3H, Chloride Level 95L, Carbon Dioxide Level 29, Anion Gap 11, Blood Urea Nitrogen 36H, Creatinine 10.1H, Estimat Glomerular Filtration Rate 6.7, Glucose Level 132H, Calcium Level 9.1, Phosphorus Level 6.5H, Magnesium Level 2.3, Total Bilirubin 0.4, Aspartate Amino Transf (AST/SGOT) 21, Alanine Aminotransferase ( ALT/SGPT) 26, Alkaline Phosphatase 133H, Total Protein 9.6H, Albumin 3.2L, Globulin 6.4, Albumin/Globulin Ratio 0.5L, Random Vancomycin Level 24.6 Height (Feet): 6 Height (Inches): 0.00 Weight (Pounds): 193 Objective General Appearance: WD/WN, no acute distress HEENT: normocephalic, atraumatic, anicteric, mucous membranes moist, PERRL, EOMI, pharynx normal, supple, no JVD Respiratory/Chest: chest wall non-tender, lungs clear, normal breath sounds, no respiratory distress, no accessory muscle use Cardiovascular: normal peripheral pulses, normal rate, regular rhythm, no gallop/murmur, no JVD Abdomen: normal bowel sounds, soft, non tender, no organomegaly, non distended , no mass, no scars Genitourinary: normal external genitalia Extremities: no cyanosis, no clubbing Skin: no rash, no lesions, ulcers, other - right stump wound with open skin draining serosanginous fluids Neurologic/Psychiatric: alert, oriented x 3, responsive Lymphatic: no neck adenopathy, no groin adenopathy Musculoskeletal: normal muscle bulk, no effusion Tessa Schwartz MD Jan 18, 2018 08:11
[2018-01-18] MEDS: Metoprolol Succinate XL 100mg tab ORAL SCH (09:41)
[2018-01-18] MEDS: Renvela 800mg Pkt ORAL SCH ×2 (09:44→13:00)
[2018-01-18] MEDS: Fluconazole 100mg tab ORAL SCH (09:45)
[2018-01-18] MEDS: Aspirin Baby 81mg ORAL SCH (09:48)
[2018-01-18] MEDS: Heparin 5000 units/ml inj SUBQ SCH (09:50)
--- NOTE | 2018-01-18 10:56 | General Progress Note ---
Assessment/Plan Problem List: (1) Encephalopathy ICD Codes: G93.40 - Encephalopathy, unspecified SNOMED: 72448032 (2) mdd Status: doing well, stable, progressing Assessment/Plan lexapro 10mg qam provided ro/st Subjective Date patient seen: Jan 18, 2018 Neurologic/Psychiatric: Reports: anxiety, depressed Allergies: Coded Allergies: NO KNOWN ALLERGIES (Verified Allergy, Unknown, 12/04/17) Subjective The pt c/o weakness. no si/hi Objective Last 24 Hour Vital Signs Date Time Temp Pulse Resp B/P (MAP) Pulse Ox O2 Delivery O2 Flow Rate FiO2 01/18/18 09:43 76 138/69 01/18/18 09:41 76 138/69 01/18/18 09:00 Room Air 01/18/18 08:00 97.9 76 20 138/69 (92) 98 01/18/18 06:45 122/58 01/18/18 04:00 97.9 73 20 122/58 (79) 97 01/18/18 00:00 98.1 74 20 95/63 (74) 98 01/17/18 21:00 Room Air 01/17/18 20:46 119/67 01/17/18 20:00 97.7 75 18 119/67 (84) 99 01/17/18 18:04 Room Air 01/17/18 16:00 97.9 71 18 123/64 (83) 98 01/17/18 14:31 141/75 01/17/18 12:00 97.7 73 18 141/75 (97) 100 Intake and Output 01/17/18 01/18/18 19:00 07:00 Intake Total 420 ml Output Total 4000 ml Balance -3580 ml Intake Oral 420 ml Hemodialysis UF 4000 ml # Bowel Movements 1 Laboratory Tests 01/18/18 05:10: White Blood Count 5.3, Red Blood Count 3.74L, Hemoglobin 12.2L, Hematocrit 37.1L , Mean Corpuscular Volume 99, Mean Corpuscular Hemoglobin 32.7H, Mean Corpuscular Hemoglobin Concent 32.9, Red Cell Distribution Width 15.5H, Platelet Count 265, Mean Platelet Volume 6.3L, Neutrophils (%) (Auto) 58.1, Lymphocytes (%) (Auto) 24.8, Monocytes (%) (Auto) 13.4H, Eosinophils (%) (Auto) 2.4, Basophils (%) (Auto) 1.3, Sodium Level 135L, Potassium Level 5.3H, Chloride Level 95L, Carbon Dioxide Level 29, Anion Gap 11, Blood Urea Nitrogen 36H, Creatinine 10.1H, Estimat Glomerular Filtration Rate 6.7, Glucose Level 132H, Calcium Level 9.1, Phosphorus Level 6.5H, Magnesium Level 2.3, Total Bilirubin 0.4, Aspartate Amino Transf (AST/SGOT) 21, Alanine Aminotransferase ( ALT/SGPT) 26, Alkaline Phosphatase 133H, Total Protein 9.6H, Albumin 3.2L, Globulin 6.4, Albumin/Globulin Ratio 0.5L, Random Vancomycin Level 24.6 Height (Feet): 6 Height (Inches): 0.00 Weight (Pounds): 193 General Appearance: no apparent distress, alert Neurologic: oriented x 3, responsive, normal mood/affect Leora Bishop MD Jan 18, 2018 10:56
--- NOTE | 2018-01-18 11:11 | Internal Med Progress Note ---
Subjective Date of Service: Jan 18, 2018 Physician Name Miles Lobo Attending Physician Shahram Duong MD Current Medications Medications (Trade) Dose Ordered Sig/Felix Route PRN Reason Start Time Stop Time Status Last Admin Dose Admin Acetaminophen (Tylenol) 650 mg Q4H PRN ORAL fever 01/10/18 18:15 02/09/18 18:14 Amlodipine Besylate (Norvasc) 5 mg DAILY ORAL 01/11/18 09:00 02/10/18 08:59 01/18/18 09:43 Aspirin (ASA) 81 mg DAILY ORAL 01/11/18 09:00 02/10/18 08:59 01/18/18 09:48 Atorvastatin Calcium (Lipitor) 10 mg BEDTIME ORAL 01/10/18 21:00 02/09/18 20:59 01/17/18 20:46 Cefepime HCl 500 mg/Dextrose 55 ml @ 110 mls/hr Q24H IVPB 01/11/18 21:00 01/22/18 20:59 01/17/18 21:15 Dextrose (Dextrose 50%) 25 ml Q30M PRN IV Hypoglycemia 01/10/18 18:15 02/09/18 18:14 Dextrose (Dextrose 50%) 50 ml Q30M PRN IV Hypoglycemia 01/10/18 18:30 02/09/18 18:29 Epoetin Daniel (Procrit (for ESRD on dialysis)) 5,000 units TUE-TUE-TUE SUBQ 01/16/18 21:00 02/15/18 20:59 01/16/18 21:12 Escitalopram Oxalate (Lexapro) 10 mg DAILY ORAL 01/11/18 09:00 02/10/18 08:59 01/18/18 09:47 Fluconazole (Diflucan) 200 mg DAILY ORAL 01/15/18 09:00 01/22/18 08:59 01/18/18 09:45 Heparin Sodium (Porcine) (Heparin 5000 units/ml) 5,000 units EVERY 12 HOURS SUBQ 01/10/18 21:00 02/09/18 20:59 01/18/18 09:50 Hydralazine HCl (Apresoline) 50 mg EVERY 8 HOURS ORAL 01/10/18 22:00 02/09/18 21:59 01/18/18 06:45 Insulin Aspart (NovoLOG) BEFORE MEALS AND HS SUBQ 01/10/18 21:00 02/09/18 20:59 01/18/18 06:50 Metoprolol Succinate (Toprol XL) 200 mg DAILY ORAL 01/11/18 09:00 02/10/18 08:59 01/18/18 09:41 Nitroglycerin (Ntg) 0.4 mg Q5M PRN SL Prn Chest Pain 01/10/18 18:15 02/09/18 18:14 Ondansetron HCl (Zofran) 4 mg Q6H PRN IVP Nausea & Vomiting 01/10/18 18:15 02/09/18 18:14 01/12/18 12:43 Polyethylene Glycol (Miralax) 17 gm DAILYPRN PRN ORAL Constipation 01/10/18 18:15 02/09/18 18:14 Pravastatin Sodium (Pravachol) 40 mg BEDTIME ORAL 01/10/18 21:00 02/09/18 20:59 01/17/18 20:45 Sevelamer Carbonate (Renvela) 800 mg THREE TIMES A DAY ORAL 01/11/18 09:00 02/10/18 08:59 01/18/18 09:44 Vancomycin HCl (Vanco rx to dose) 1 ea DAILY PRN MISC per rx protocol 01/10/18 19:30 02/09/18 19:29 Vancomycin HCl 1 gm/Dextrose 275 ml @ 183.708 mls/hr ONCE ONCE IVPB 01/19/18 06:00 01/19/18 07:29 Allergies: Coded Allergies: NO KNOWN ALLERGIES (Verified Allergy, Unknown, 12/04/17) ROS Limited/Unobtainable: No Constitutional: Reports: no symptoms HEENT: Reports: no symptoms Cardiovascular: Reports: no symptoms Respiratory: Reports: no symptoms Gastrointestinal/Abdominal: Reports: no symptoms Genitourinary: Reports: no symptoms Neurologic/Psychiatric: Reports: no symptoms Subjective 52 YO M admitted with chief complaint right foot pain. Now osteomyelitis. Cover for Int Med-Dr Duong. Await transfer to [facility] Objective Last Vital Signs Date Time Temp Pulse Resp B/P (MAP) Pulse Ox O2 Delivery O2 Flow Rate FiO2 01/18/18 09:43 76 138/69 01/18/18 09:00 Room Air 01/18/18 08:00 97.9 20 98 01/15/18 08:23 21 Laboratory Tests Test 01/18/18 05:10 White Blood Count 5.3 K/UL (4.8-10.8) Red Blood Count 3.74 M/UL (4.70-6.10) L Hemoglobin 12.2 G/DL (14.2-18.0) L Hematocrit 37.1 % (42.0-52.0) L Mean Corpuscular Volume 99 FL (80-99) Mean Corpuscular Hemoglobin 32.7 PG (27.0-31.0) H Mean Corpuscular Hemoglobin Concent 32.9 G/DL (32.0-36.0) Red Cell Distribution Width 15.5 % (11.6-14.8) H Platelet Count 265 K/UL (150-450) Mean Platelet Volume 6.3 FL (6.5-10.1) L Neutrophils (%) (Auto) 58.1 % (45.0-75.0) Lymphocytes (%) (Auto) 24.8 % (20.0-45.0) Monocytes (%) (Auto) 13.4 % (1.0-10.0) H Eosinophils (%) (Auto) 2.4 % (0.0-3.0) Basophils (%) (Auto) 1.3 % (0.0-2.0) Sodium Level 135 MMOL/L (136-145) L Potassium Level 5.3 MMOL/L (3.5-5.1) H Chloride Level 95 MMOL/L (98-107) L Carbon Dioxide Level 29 MMOL/L (21-32) Anion Gap 11 mmol/L (5-15) Blood Urea Nitrogen 36 mg/dL (7-18) H Creatinine 10.1 MG/DL (0.55-1.30) H Estimat Glomerular Filtration Rate 6.7 mL/min (>60) Glucose Level 132 MG/DL (74-106) H Calcium Level 9.1 MG/DL (8.5-10.1) Phosphorus Level 6.5 MG/DL (2.5-4.9) H Magnesium Level 2.3 MG/DL (1.8-2.4) Total Bilirubin 0.4 MG/DL (0.2-1.0) Aspartate Amino Transf (AST/SGOT) 21 U/L (15-37) Alanine Aminotransferase (ALT/SGPT) 26 U/L (12-78) Alkaline Phosphatase 133 U/L (46-116) H Total Protein 9.6 G/DL (6.4-8.2) H Albumin 3.2 G/DL (3.4-5.0) L Globulin 6.4 g/dL Albumin/Globulin Ratio 0.5 (1.0-2.7) L Random Vancomycin Level 24.6 ug/mL Intake and Output 01/17/18 01/18/18 19:00 07:00 Intake Total 420 ml Output Total 4000 ml Balance -3580 ml Intake Oral 420 ml Hemodialysis UF 4000 ml # Bowel Movements 1 Objective General Appearance: WD/WN, no apparent distress, alert EENT: PERRL/EOMI, normal ENT inspection, TMs normal Neck: non-tender, normal alignment, supple, normal inspection Cardiovascular: normal peripheral pulses, normal rate, regular rhythm, no gallop/murmur, no JVD Respiratory/Chest: chest wall non-tender, lungs clear, normal breath sounds, no respiratory distress, no accessory muscle use Abdomen: normal bowel sounds, non tender, soft, no organomegaly, no mass Extremities: normal range of motion, other - right foot pain Edema: trace edema Neurologic: substance abuse counselor II-XII grossly normal, no motor/sensory deficits Skin: normal pigmentation, warm/dry Assessment/Plan Problem List: (1) Right foot pain (2) Acute osteomyelitis of metatarsal bone of right foot Assessment & Plan: Non surgical-see podiatry note. Continue cefepime and vanco. Will require Antibiotics for 6 weeks per ID note (3) Diabetes mellitus Assessment & Plan: Continue insulin sliding scale. (4) ESRD (end stage renal disease) Assessment & Plan: See nephrology note. last Hemodialysis 01/17/18 (5) HTN (hypertension) Assessment & Plan: continue hydralazine, metoprolol and norvasc. Assessment/Plan Discharge plan: await D/C today to Rehab Center on [facility] for 6 weeks IV antibiotic Miles Lobo MD Jan 18, 2018 11:11
--- NOTE | 2018-01-18 11:20 | Podiatric Progress Note ---
Assessment/Plan Patient Mahsa Claire is a 52 year old male who was admitted on Jan 10, 2018 at 17: 46 with Assessment/Plan Assessment/Plan A/ 1) Infected DM foot ulcer right foot 2) Osteomyelitis right foot 3) PAD 4) DM neuropathy and uncontrolled 5) ESRD 6) Noncompliant 7) Encephalopathy P/ 1) Wound Vac D/C at bedside. Surgical site examined. Per nursing pt getting D/C to SNF today, Vac will be re-applied at SNF. DSD applied to RLE. Keep D/C/I until Vac placement at SNF. Cont NWB to RLE until incision fully healed. 2) Oral ABx per ID. 3) Requires strict glycemic control for optimal wound healing 4) Recommend SNF placement for advanced wound care, glycemic control, abx management. 5) Advised nurse to contact me directly on where pt will be placed. Thank you. 6) Will follow. Subjective Allergies: Coded Allergies: NO KNOWN ALLERGIES (Verified Allergy, Unknown, 12/04/17) Subjective Pt seen at bedside this AM. Confirms keeping dressing C/D/I and wound vac continuously running. Denies any overnight events. States his pain is well controlled. Objective Exam Last 24 Hour Vital Signs Date Time Temp Pulse Resp B/P (MAP) Pulse Ox O2 Delivery O2 Flow Rate FiO2 01/18/18 09:43 76 138/69 01/18/18 09:41 76 138/69 01/18/18 09:00 Room Air 01/18/18 08:00 97.9 76 20 138/69 (92) 98 01/18/18 06:45 122/58 01/18/18 04:00 97.9 73 20 122/58 (79) 97 01/18/18 00:00 98.1 74 20 95/63 (74) 98 01/17/18 21:00 Room Air 01/17/18 20:46 119/67 01/17/18 20:00 97.7 75 18 119/67 (84) 99 01/17/18 18:04 Room Air 01/17/18 16:00 97.9 71 18 123/64 (83) 98 01/17/18 14:31 141/75 01/17/18 12:00 97.7 73 18 141/75 (97) 100 Laboratory Tests Test 01/18/18 05:10 White Blood Count 5.3 K/UL (4.8-10.8) Red Blood Count 3.74 M/UL (4.70-6.10) L Hemoglobin 12.2 G/DL (14.2-18.0) L Hematocrit 37.1 % (42.0-52.0) L Mean Corpuscular Volume 99 FL (80-99) Mean Corpuscular Hemoglobin 32.7 PG (27.0-31.0) H Mean Corpuscular Hemoglobin Concent 32.9 G/DL (32.0-36.0) Red Cell Distribution Width 15.5 % (11.6-14.8) H Platelet Count 265 K/UL (150-450) Mean Platelet Volume 6.3 FL (6.5-10.1) L Neutrophils (%) (Auto) 58.1 % (45.0-75.0) Lymphocytes (%) (Auto) 24.8 % (20.0-45.0) Monocytes (%) (Auto) 13.4 % (1.0-10.0) H Eosinophils (%) (Auto) 2.4 % (0.0-3.0) Basophils (%) (Auto) 1.3 % (0.0-2.0) Sodium Level 135 MMOL/L (136-145) L Potassium Level 5.3 MMOL/L (3.5-5.1) H Chloride Level 95 MMOL/L (98-107) L Carbon Dioxide Level 29 MMOL/L (21-32) Anion Gap 11 mmol/L (5-15) Blood Urea Nitrogen 36 mg/dL (7-18) H Creatinine 10.1 MG/DL (0.55-1.30) H Estimat Glomerular Filtration Rate 6.7 mL/min (>60) Glucose Level 132 MG/DL (74-106) H Calcium Level 9.1 MG/DL (8.5-10.1) Phosphorus Level 6.5 MG/DL (2.5-4.9) H Magnesium Level 2.3 MG/DL (1.8-2.4) Total Bilirubin 0.4 MG/DL (0.2-1.0) Aspartate Amino Transf (AST/SGOT) 21 U/L (15-37) Alanine Aminotransferase (ALT/SGPT) 26 U/L (12-78) Alkaline Phosphatase 133 U/L (46-116) H Total Protein 9.6 G/DL (6.4-8.2) H Albumin 3.2 G/DL (3.4-5.0) L Globulin 6.4 g/dL Albumin/Globulin Ratio 0.5 (1.0-2.7) L Random Vancomycin Level 24.6 ug/mL Microbiology Date/Time Source Procedure Growth Status 01/11/18 14:15 Blood Blood Culture - Final NO GROWTH AFTER 5 DAYS Complete 01/10/18 19:10 Nasal Nares MRSA Culture - Final NO METHICILLIN RESISTANT STAPH AUREUS... Complete 01/10/18 22:00 Foot Right Gram Stain - Final Complete 01/10/18 22:00 Wound Culture - Final Serratia Marcescens Indu Glabrata Complete Dermatological Dermatological: within nl limits Dermatological Narrative RLE: Surgical site: Medial incision noted to be intact with mile. Central incision noted to be approximated, lateral 25% of incision dehiscence noted with granular base. Theresa-wound margins slight maceration. No acute SOI. No active drainage noted. Azar Mensah DPM Jan 18, 2018 11:20
[2018-01-18 12:00] VITALS: BP 147/82
[2018-01-18 14:00] VITALS: BP 147/82
--- NOTE | 2018-01-18 14:32 | Pulmonology Progress Note ---
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 (3) ESRD (end stage renal disease) (4) HTN (hypertension) (5) Diabetes mellitus Assessment/Plan wound vac in place improving f/u podiatry recommendations sliding scale diabetic diet HD by ballistics teacher check electrolytes dc planning Subjective Constitutional: Reports: no symptoms HEENT: Repors: no symptoms Respiratory: Reports: no symptoms Allergies: Coded Allergies: NO KNOWN ALLERGIES (Verified Allergy, Unknown, 12/04/17) Objective Last 24 Hour Vital Signs Date Time Temp Pulse Resp B/P (MAP) Pulse Ox O2 Delivery O2 Flow Rate FiO2 01/18/18 14:00 147/82 01/18/18 12:00 97.7 70 16 147/82 (103) 100 01/18/18 09:43 76 138/69 01/18/18 09:41 76 138/69 01/18/18 09:00 Room Air 01/18/18 08:00 97.9 76 20 138/69 (92) 98 01/18/18 06:45 122/58 01/18/18 04:00 97.9 73 20 122/58 (79) 97 01/18/18 00:00 98.1 74 20 95/63 (74) 98 01/17/18 21:00 Room Air 01/17/18 20:46 119/67 01/17/18 20:00 97.7 75 18 119/67 (84) 99 01/17/18 18:04 Room Air 01/17/18 16:00 97.9 71 18 123/64 (83) 98 Intake and Output 01/17/18 01/18/18 19:00 07:00 Intake Total 420 ml Output Total 4000 ml Balance -3580 ml Intake Oral 420 ml Hemodialysis UF 4000 ml # Bowel Movements 1 General Appearance: WD/WN HEENT: normocephalic, atraumatic Respiratory/Chest: chest wall non-tender, lungs clear Cardiovascular: normal peripheral pulses, normal rate Abdomen: normal bowel sounds Laboratory Tests 01/18/18 05:10: White Blood Count 5.3, Red Blood Count 3.74L, Hemoglobin 12.2L, Hematocrit 37.1L , Mean Corpuscular Volume 99, Mean Corpuscular Hemoglobin 32.7H, Mean Corpuscular Hemoglobin Concent 32.9, Red Cell Distribution Width 15.5H, Platelet Count 265, Mean Platelet Volume 6.3L, Neutrophils (%) (Auto) 58.1, Lymphocytes (%) (Auto) 24.8, Monocytes (%) (Auto) 13.4H, Eosinophils (%) (Auto) 2.4, Basophils (%) (Auto) 1.3, Sodium Level 135L, Potassium Level 5.3H, Chloride Level 95L, Carbon Dioxide Level 29, Anion Gap 11, Blood Urea Nitrogen 36H, Creatinine 10.1H, Estimat Glomerular Filtration Rate 6.7, Glucose Level 132H, Calcium Level 9.1, Phosphorus Level 6.5H, Magnesium Level 2.3, Total Bilirubin 0.4, Aspartate Amino Transf (AST/SGOT) 21, Alanine Aminotransferase ( ALT/SGPT) 26, Alkaline Phosphatase 133H, Total Protein 9.6H, Albumin 3.2L, Globulin 6.4, Albumin/Globulin Ratio 0.5L, Random Vancomycin Level 24.6 Jorge Anaya MD Jan 18, 2018 14:32
--- NOTE | 2018-01-18 16:45 | Infectious Diseases Prog Note ---
Assessment/Plan Problems: (1) Acute osteomyelitis of metatarsal bone of right foot Assessment & Plan: previously grew MSSA , providenciae rettgeri and proteus mirabilis, underwent revision of his right stump wound after revascularization at [facility] . was discharged on meropenem and cefazoline for 6 weeks . unclear whether he was receiving any antibiotics at the HD center . MRI of the right foot now showed possible distal metatarsal bones osteomyelitis , and wound culture grew serratia marcescens and summer glabrata , so will continue vancomycin and cefepime for 6 weeks with HD in supervised environment such as SNF to ensure receiving antibiotics since he is noncompliant, appreciate machine operator hop worker input . add fluconazole high dose to cover summer glabrata for 6 weeks too. monitor weekly labs while on antibiotics with CBC, CMP follow up with wound care and podiatry service here at [facility] after discharge . (2) Ulcer of amputation stump of foot Assessment & Plan: with purulent discharge , and possible under lying osteomyelitis, continue wide spectrum antibiotics for 6 weeks course of treatment . (3) Sepsis Assessment & Plan: due to the above, blood culture remains negative , continue wide spectrum antibiotics (4) Diabetes mellitus Assessment & Plan: recommend tight glycemic control to keep blood glucose between 100-140 (5) ESRD (end stage renal disease) Assessment & Plan: on HD renal service is following Subjective Constitutional: Reports: no symptoms HEENT: Reports: no symptoms Respiratory: Reports: no symptoms Breasts: Reports: no symptoms Cardiovascular: Reports: no symptoms Gastrointestinal/Abdominal: Reports: no symptoms Genitourinary: Reports: no symptoms Neurologic: Reports: no symptoms Psychiatric: Reports: no symptoms Skin: Reports: no symptoms Endocrine: Reports: no symptoms Hematologic: Reports: no symptoms Musculoskeletal: Reports: no symptoms Allergies: Coded Allergies: NO KNOWN ALLERGIES (Verified Allergy, Unknown, 12/04/17) Subjective he was comfortable lying in bed, getting hemodialysis. Objective Vital Signs Last 24 Hour Vital Signs Date Time Temp Pulse Resp B/P (MAP) Pulse Ox O2 Delivery O2 Flow Rate FiO2 01/18/18 14:00 147/82 01/18/18 12:00 97.7 70 16 147/82 (103) 100 01/18/18 09:43 76 138/69 01/18/18 09:41 76 138/69 01/18/18 09:00 Room Air 01/18/18 08:00 97.9 76 20 138/69 (92) 98 01/18/18 06:45 122/58 01/18/18 04:00 97.9 73 20 122/58 (79) 97 01/18/18 00:00 98.1 74 20 95/63 (74) 98 01/17/18 21:00 Room Air 01/17/18 20:46 119/67 01/17/18 20:00 97.7 75 18 119/67 (84) 99 01/17/18 18:04 Room Air Height (Feet): 6 Height (Inches): 0.00 Weight (Pounds): 193 General Appearance: WD/WN, no acute distress HEENT: normocephalic, atraumatic, anicteric, mucous membranes moist, PERRL Respiratory/Chest: chest wall non-tender, lungs clear, normal breath sounds, no respiratory distress, no accessory muscle use Cardiovascular: normal peripheral pulses, normal rate, regular rhythm, no gallop/murmur, no JVD Abdomen: normal bowel sounds, soft, non tender, no organomegaly, non distended , no mass, no scars Extremities: no cyanosis, no clubbing Skin: no rash, no lesions, ulcers - right foot stump Neurologic/Psychiatric: alert, oriented x 3, responsive Lymphatic: no neck adenopathy, no groin adenopathy Laboratory Tests Test 01/18/18 05:10 White Blood Count 5.3 K/UL (4.8-10.8) Red Blood Count 3.74 M/UL (4.70-6.10) L Hemoglobin 12.2 G/DL (14.2-18.0) L Hematocrit 37.1 % (42.0-52.0) L Mean Corpuscular Volume 99 FL (80-99) Mean Corpuscular Hemoglobin 32.7 PG (27.0-31.0) H Mean Corpuscular Hemoglobin Concent 32.9 G/DL (32.0-36.0) Red Cell Distribution Width 15.5 % (11.6-14.8) H Platelet Count 265 K/UL (150-450) Mean Platelet Volume 6.3 FL (6.5-10.1) L Neutrophils (%) (Auto) 58.1 % (45.0-75.0) Lymphocytes (%) (Auto) 24.8 % (20.0-45.0) Monocytes (%) (Auto) 13.4 % (1.0-10.0) H Eosinophils (%) (Auto) 2.4 % (0.0-3.0) Basophils (%) (Auto) 1.3 % (0.0-2.0) Sodium Level 135 MMOL/L (136-145) L Potassium Level 5.3 MMOL/L (3.5-5.1) H Chloride Level 95 MMOL/L (98-107) L Carbon Dioxide Level 29 MMOL/L (21-32) Anion Gap 11 mmol/L (5-15) Blood Urea Nitrogen 36 mg/dL (7-18) H Creatinine 10.1 MG/DL (0.55-1.30) H Estimat Glomerular Filtration Rate 6.7 mL/min (>60) Glucose Level 132 MG/DL (74-106) H Calcium Level 9.1 MG/DL (8.5-10.1) Phosphorus Level 6.5 MG/DL (2.5-4.9) H Magnesium Level 2.3 MG/DL (1.8-2.4) Total Bilirubin 0.4 MG/DL (0.2-1.0) Aspartate Amino Transf (AST/SGOT) 21 U/L (15-37) Alanine Aminotransferase (ALT/SGPT) 26 U/L (12-78) Alkaline Phosphatase 133 U/L (46-116) H Total Protein 9.6 G/DL (6.4-8.2) H Albumin 3.2 G/DL (3.4-5.0) L Globulin 6.4 g/dL Albumin/Globulin Ratio 0.5 (1.0-2.7) L Random Vancomycin Level 24.6 ug/mL Cira Ceja M.D. Jan 18, 2018 16:45
[2018-01-19] MEDS ORDERED: Vancomycin 1gm/D5W 275ml IVPB ONE ×2 (06:00)
--- NOTE | 2018-01-19 17:26 | Discharge Summary ---
Discharge Summary Discharge Summary _ DATE OF ADMISSION: 01/10/2018 DATE OF DISCHARGE: 01/18/2018 CONSULTANTS: Dr. Cira Lane [facility] HOSPITAL COURSE: Patient is a 52-year-old -[place] male, who presented to ED with chief complaint of right foot pain. The patient is status post right foot metatarsal amputation. He has history of osteomyelitis of the right foot and was admitted to [place] recently. He was transferred to [facility] for angiogram and revascularization, where he underwent revision of his right foot stump wound. He presented to the wound clinic for follow-up, and on evaluation by student admissions clerk , was noticed to have foot stump wound open and draining with purulent material. He was sent to emergency room for further evaluation. He has medical history significant for diabetes mellitus, hypertension, hypercholesterolemia, end-stage renal disease on hemodialysis, peripheral vascular disease, renal cell CA status post nephrectomy, hemorrhagic stroke in 2011, history of upper GI hemorrhage, and osteomyelitis of the right foot. On evaluation at ED, blood work showed elevated glucose level of 343. There was no leukocytosis, hemoglobin was 10.9, hematocrit 32. Patient was not in diabetic ketoacidosis. Creatinine was 6.5, BUN 23. Potassium was normal. He was noted to have evidence of osteomyelitis as well as with infection to his right foot. He was then admitted for evaluation of infection of the right lower extremity stump, diabetes mellitus and end-stage renal disease. ID was consulted. Patient had a history of wound infection with Proteus mirabilis, Providencia rettgeri and MSSA. He was discharged from [facility] on meropenem and cefazolin, unclear whether he was receiving antibiotics at the hemodialysis center. He was started on vancomycin and cefepime. Meat And Poultry Inspector was consulted. Patient has infected DM foot ulcer on the right foot. He was given wound care. No surgical intervention was needed. He was recommended strict glycemic control for optimal wound healing and to continue antibiotic treatment. Dr. Schwartz was consulted. He was given inpatient hemodialysis. He had anemia of chronic kidney disease. He was given Epogen. He had renal osteodystrophy, phosphorous was within normal limits. On 01/13/2018, excisional debridement was performed at bedside. Fibrotic tissues were removed. Wound VAC was applied. Venous duplex of lower extremity was negative for DVT. Right foot MRI showed possible distal metatarsal bone osteomyelitis and wound culture grew Serratia marcescens and Indu glabrata. Vancomycin and cefepime were continued. Fluconazole was added. Blood culture did not isolate any growth. Patient has history of depression and anxiety and with low energy. He was given Lexapro. Patient would need 6 weeks of antibiotics with hemodialysis in a supervised environment to ensure he is receiving antibiotics, since he is noncompliant. Patient was [facility] to [facility] on . Hemodialyses to be provided by [facility] [place] every Tuesday, and Tuesday. Patient was eventually discharged. FINAL DIAGNOSES: Sepsis Acute osteomyelitis of metatarsal bone of the right foot Infection of amputation stump of the right lower extremity Diabetes mellitus with DM neuropathy, out of control End-stage renal failure on hemodialysis Hypertension Peripheral arterial disease Noncompliance Encephalopathy Renal osteodystrophy Anemia of chronic kidney disease Status post excisional debridement of right foot ulcer, performed at bedside DISPOSITION: Patient was discharge to [facility] on . DISCHARGE MEDICATIONS: Refer to Discharge Medication List. I have been assigned to dictate discharge summary on this account, and I was not involved in the patient's management. Ellen Galindo NP Jan 19, 2018 17:26
== END 2018-01-18 14:24 | DRG 853 ==
LOC: EMR 16:24 → 4E 17:46 → EDBEDREQ 18:54 → 4E 21:43
PROC: 5A1D70Z Performance of Urinary Filtration, Intermittent, Less than 6 Hours Per Day (ICD-10-PCS; principal; 2018-01-12)
PROC: 0JBQ0ZZ Excision of Right Foot Subcutaneous Tissue and Fascia, Open Approach (ICD-10-PCS; 2018-01-13)
DX: A41.9 Sepsis, unspecified organism (principal); N18.6 End stage renal disease; M86.171 Other acute osteomyelitis, right ankle and foot; I12.0 Hypertensive chronic kidney disease with stage 5 chronic kidney disease or end stage renal disease; T87.43 Infection of amputation stump, right lower extremity; E87.1 Hypo-osmolality and hyponatremia; G93.40 Encephalopathy, unspecified; E11.22 Type 2 diabetes mellitus with diabetic chronic kidney disease; Z99.2 Dependence on renal dialysis; Y83.5 Amputation of limb(s) as the cause of abnormal reaction of the patient, or of later complication, without mention of misadventure at the time of the procedure; F41.9 Anxiety disorder, unspecified; D63.1 Anemia in chronic kidney disease; N25.0 Renal osteodystrophy; I73.9 Peripheral vascular disease, unspecified; Z91.19 Patient's noncompliance with other medical treatment and regimen; E11.621 Type 2 diabetes mellitus with foot ulcer; E11.40 Type 2 diabetes mellitus with diabetic neuropathy, unspecified; E11.65 Type 2 diabetes mellitus with hyperglycemia; Z86.73 Personal history of transient ischemic attack (TIA), and cerebral infarction without residual deficits; Z85.53 Personal history of malignant neoplasm of renal pelvis; Z79.82 Long term (current) use of aspirin; B96.89 Other specified bacterial agents as the cause of diseases classified elsewhere; F32.9 Major depressive disorder, single episode, unspecified
CPT/HCPCS: 36415; 80048; 80053; 80202; 82962; 83735; 84100; 85025; 85610; 85651; 85730; 86705; 86709; 86803; 86850; 86900; 86901; 87040; 87070; 87081; 87181; 87205; 87340; 93970; 94664; 99285; J1815; J2405

== ENCOUNTER 2019-03-15 21:13 | Inpatient (IN) | payer MEDICARE, MEDICAID ==
[~2019-03-15] VITALS: Ht 182.9 cm; Wt 69.9 kg
[2019-03-15 21:13] VITALS: BP 164/82
[~2019-03-15 21:13] MED LIST changes: +CEFEPIME-D1 GM/50 ML IVPB; +DIFLUCAN100 MG ORAL; +PROCRIT20000 UNI2 SUBQ; +RESTORIL15 MG ORAL
--- NOTE | 2019-03-15 21:13 | NUR ---
ED Nurse Note: Patient brought in by ambulance with complaints of left foot lesion.
--- NOTE | 2019-03-15 21:21 | Emergency Room Report ---
History of Present Illness General Chief Complaint: Abnormal Labs Source: Patient Present Illness HPI This a 53-year-old -[place] male with a history of diabetes, high blood pressure, renal failure on hemodialysis. Dialysis days are Tuesday, , and Tuesday. He presents with chief complaint of high blood sugar. It was worsening high at home. He also felt weak and tired. No fever chills but no nausea no vomiting. Decreased appetite. He said that he has problem with his left toe has been ongoing for 2 weeks. He has minimal pain in that area. He has no sensation in that area. No treatment has been done. Denies any other complaint. Allergies: Coded Allergies: NO KNOWN ALLERGIES (Verified Allergy, Unknown, 12/04/17) Patient History Past Medical History: see triage record, old chart reviewed, DM, HTN, renal disease, dialysis Past Surgical History: other Pertinent Family History: none Social History: Denies: smoking Immunizations: other Reviewed Nursing Documentation: PMH: Agreed; PSxH: Agreed Nursing Documentation-PMH Past Medical History: No History, Except For Hx Hypertension: Yes Hx Diabetes: Yes Hx Cancer: No Hx Gastrointestinal Problems: No Hx Dialysis: Yes - ,,sat shunt on right arm Hx Neurological Problems: No Review of Systems Constitutional: Reports: malaise, weakness Eye: Denies: eye pain, blurred vision ENT: Denies: ear pain, nose congestion, throat swelling Respiratory: Denies: cough, shortness of breath Cardiovascular: Denies: chest pain, palpitations Gastrointestinal: Denies: abdominal pain, diarrhea, nausea, vomiting Musculoskeletal: Denies: back pain, joint pain Skin: Denies: rash Neurological: Denies: headache, numbness Endocrine: Denies: increased thirst, increased urine Hematologic/Lymphatic: Denies: easy bruising All Other Systems: negative except mentioned in HPI Physical Exam Vital Signs Date Time Temp Pulse Resp B/P (MAP) Pulse Ox O2 Delivery O2 Flow Rate FiO2 03/15/19 21:04 98.2 98 16 164/82 (109) 96 Room Air Vitals with high blood pressure Sp02 EP Interpretation: reviewed, normal General Appearance: no apparent distress, alert, thin Head: normocephalic, atraumatic Eyes: bilateral eye PERRL, bilateral eye EOMI ENT: hearing grossly normal, normal pharynx Neck: full range of motion, supple, no meningismus Respiratory: chest non-tender, lungs clear, normal breath sounds Cardiovascular #1: regular rate, rhythm, no murmur Gastrointestinal: normal bowel sounds, non tender, no mass, no organomegaly, no bruit, non-distended Musculoskeletal: back normal, normal range of motion, gait/station normal, other - Right foot with transmetatarsal amputation. Left foot: His second toe show wet gangrene. Extended to the sole of the foot. Unable to palpate a pulse. Psychiatric: mood/affect normal Procedures Critical Care Time Critical Care Time Critical care is mandated in this patient who presented with sepsis and severe hyperglycemia. Patient require my urgent intervention to attenuate the risks of metabolic collapse which may lead to cardiovascular collapse and . Critical care time is 35 minutes excluding any reportable procedure. Critical care time included evaluation, multiple reevaluation, looking at old charts, interpreting laboratory and diagnostic data, discussing case with patient and family and consultants, and charting. Medical Decision Making Diagnostic Impression: Primary Impression: Sepsis Qualified Codes: A41.9 - Sepsis, unspecified organism; R65.20 - Severe sepsis without septic shock Additional Impressions: Gangrene of toe of left foot Hyperglycemia due to type 1 diabetes mellitus ESRD (end stage renal disease) on dialysis HTN (hypertension) Qualified Codes: I10 - Essential (primary) hypertension ER Course Patient presents with hyperglycemia secondary to infected left foot diabetic ulcer and gangrene. He will probably need another transmetatarsal amputation at the least. Wide spectrum antibiotic started here. No DKA. Will admit for IV antibiotics and surgical consultation. I discussed the case with Dr. Toussaint for admission. Rhythm Strip Diag. Results EP Interpretation: yes Rate: 97 Rhythm: NSR, no PVC's, no ectopy Other X-Ray Diagnostic Results Other X-Ray Diagnostic Results : X-Ray ordered: Foot x-rays left # of Views/Limited Vs Complete: 3 View Indication: Pain EP Interpretation: Yes Interpretation: no dislocation, no fractures, other - gas in soft tissue Impression: Other - gas in soft tissue Electronically Signed by: George Weinstein MD Last Vital Signs Date Time Temp Pulse Resp B/P (MAP) Pulse Ox O2 Delivery O2 Flow Rate FiO2 03/15/19 21:04 98.2 98 16 164/82 (109) 96 Room Air Status: improved Disposition: ADMITTED INPATIENT Condition: Serious George Weinstein MD Mar 15, 2019 21:21
[2019-03-15] MEDS ORDERED: Vancomycin 1.5gm/NS Premix 275 ML IVPB ONE (21:30)
[2019-03-15] MEDS ORDERED: Piperacillin/Tazobactam 3.375 GM in NS 110 ML IVPB ONE (21:30)
[2019-03-15] MEDS ORDERED: Insulin Human Regular 100units/ml 3ml IV ONE ×2 (21:30→23:00)
--- NOTE | 2019-03-15 21:45 | NUR ---
ED Nurse Note: Patient tolerated IV start and blood draw well. Blood specimen collected and sent to lab. patient is unable to make urine due to CKD. Will continue to monitor.
[2019-03-15] MEDS ORDERED: Vancomycin 1.5 GM in NS 275 ML IVPB ONE (22:00)
[2019-03-15 22:06] LABS: HEMOGLOBIN 12.4 G/DL (14.2-18.0); MEAN CORPUSCULAR VOLUME 96 FL (80-99); PLATELET COUNT 357 K/UL (150-450); RED BLOOD COUNT 3.95 M/UL (4.70-6.10); RED CELL DISTRIBUTION WIDTH 14.7 % (11.6-14.8)
[2019-03-15 22:08] LABS: INR 1.1 (0.9-1.1)
[2019-03-15 22:12] LABS: ANION GAP 8 mmol/L (5-15); BLOOD UREA NITROGEN 33 mg/dL (7-18); CALCIUM 10.3 MG/DL (8.5-10.1); CARBON DIOXIDE 29 MMOL/L (21-32); CHLORIDE 91 MMOL/L (98-107); CREATININE 6.1 MG/DL (0.55-1.30); POTASSIUM 5.8 MMOL/L (3.5-5.1); SODIUM 128 MMOL/L (136-145)
--- NOTE | 2019-03-15 22:15 | NUR ---
ED Nurse Note: Patient resting comfortably, no reports of pain or discomfort.
[2019-03-15 22:35] VITALS: BP 149/69
--- NOTE | 2019-03-15 23:15 | NUR ---
ED Nurse Note: Patient resting comfortably, vital signs stable and documented.
--- NOTE | 2019-03-15 23:44 | Emergency Room Report ---
Sepsis Event Note Evaluation Current Stage of Sepsis: Sepsis Possible Source: Skin/Soft Tissue Focused Exam Allergies: Coded Allergies: NO KNOWN ALLERGIES (Verified Allergy, Unknown, 12/04/17) Date Exam Occurred: Mar 15, 2019 Time Exam Occurred: 23:00 Laboratory Studies Laboratory Tests Test 03/15/19 21:36 White Blood Count 27.0 K/UL (4.8-10.8) *H Red Blood Count 3.95 M/UL (4.70-6.10) L Hemoglobin 12.4 G/DL (14.2-18.0) L Hematocrit 38.0 % (42.0-52.0) L Mean Corpuscular Volume 96 FL (80-99) Mean Corpuscular Hemoglobin 31.5 PG (27.0-31.0) H Mean Corpuscular Hemoglobin Concent 32.8 G/DL (32.0-36.0) Red Cell Distribution Width 14.7 % (11.6-14.8) Platelet Count 357 K/UL (150-450) Mean Platelet Volume 7.9 FL (6.5-10.1) Neutrophils (%) (Auto) % (45.0-75.0) Lymphocytes (%) (Auto) % (20.0-45.0) Monocytes (%) (Auto) % (1.0-10.0) Eosinophils (%) (Auto) % (0.0-3.0) Basophils (%) (Auto) % (0.0-2.0) Differential Total Cells Counted 100 Neutrophils % (Manual) 82 % (45-75) H Lymphocytes % (Manual) 8 % (20-45) L Monocytes % (Manual) 5 % (1-10) Eosinophils % (Manual) 0 % (0-3) Basophils % (Manual) 1 % (0-2) Band Neutrophils 4 % (0-8) Platelet Estimate Adequate Platelet Morphology Normal Red Blood Cell Morphology Normal Prothrombin Time 11.8 SEC (9.30-11.50) H Prothromb Time International Ratio 1.1 (0.9-1.1) Activated Partial Thromboplast Time 40 SEC (23-33) H Sodium Level 128 MMOL/L (136-145) L Potassium Level 5.8 MMOL/L (3.5-5.1) H Chloride Level 91 MMOL/L (98-107) L Carbon Dioxide Level 29 MMOL/L (21-32) Anion Gap 8 mmol/L (5-15) Blood Urea Nitrogen 33 mg/dL (7-18) H Creatinine 6.1 MG/DL (0.55-1.30) H Estimat Glomerular Filtration Rate 11.9 mL/min (>60) Glucose Level 745 MG/DL (74-106) *H Calcium Level 10.3 MG/DL (8.5-10.1) H Vital Signs Last 24 Hour Vital Signs Date Time Temp Pulse Resp B/P (MAP) Pulse Ox O2 Delivery O2 Flow Rate FiO2 03/15/19 22:35 98.2 104 18 149/69 100 Room Air 03/15/19 21:13 98.2 105 16 164/82 96 Room Air 03/15/19 21:04 98.2 98 16 164/82 (109) 96 Room Air Respiratory Exam: Clear Cardiovascular Exam: RRR, S1, S2 Capillary Refill: Less Than 2 Seconds Peripheral Pulse: Strong Pulse Location: Radial Skin Exam: Normal Turgor George Weinstein MD Mar 15, 2019 23:44
--- NOTE | 2019-03-16 00:05 | NUR ---
ED Nurse Note: Patient's systolic bp gradually increasing by twn point Q 30 minutes. ERMD informed.
--- NOTE | 2019-03-16 00:10 | NUR ---
ED Nurse Note: Per ERMD, patient to be given insulin per individual order, rather than hyperglycemia protocol. Patient current BG is 500. Will continue to monitor prior to transport to floor. Patient rendered tea without sugar upon request.
[2019-03-16] MEDS ORDERED: Morphine Sulfate 4mg/ml Inj (IV USE ONLY) IVP PRN (00:15)
[2019-03-16] MEDS ORDERED: Insulin Human Regular 100units/ml 3ml IV ONE (00:30)
--- NOTE | 2019-03-16 00:33 | NUR ---
ED Nurse Note: Patient tolerated antihypertensive medication well, Will continue to monitor blood pressure.
[2019-03-16 00:50] VITALS: BP 141/72
--- NOTE | 2019-03-16 00:50 | NUR ---
ED Nurse Note: Patient's BP responsive to antihypertensive medication and documented.
--- NOTE | 2019-03-16 01:02 | NUR ---
ED Nurse Note: Patient blod glucose is 368, will inform ERMD.
--- NOTE | 2019-03-16 01:05 | NUR ---
ED Nurse Note: called to render report, nurse unavailable. Will return call.
--- NOTE | 2019-03-16 01:40 | NUR ---
ED Nurse Note: Report called in to Grecia FARMER.
--- NOTE | 2019-03-16 02:27 | NUR ---
NURSE NOTES: Admitted a 53 year old male, alert and oriented x4, with gangrenous 2nd toe on the left foot, w/ scant amount of drainage in between of the toes. Patient said he couldn't feel anything on the lower legs but was able to lift up both. Per patient, he hasn't seen the foot MD for a long time and he got dialysis on 03/15/19 with 3.5L out.
--- NOTE | 2019-03-16 02:36 | NUR ---
NURSE NOTES: Belongings checked. Patient's cigarette and protection officer was surrendered to charge nurse. Will place at nursing station drawer. Patient wanted to keep his valuables. Cellphone at bedside with no concrete laborer. Patient wearing upper dentures. Wallet with belongings, has [place] ID card, E[place] card, Mastercard and Giftcard. [place] of $22.05 in his pants' pocket.
[2019-03-16 04:00] VITALS: BP 131/77
--- NOTE | 2019-03-16 06:08 | NUR ---
NURSE NOTES: Called Dr. Toussaint for admission orders. Waiting for call back.
--- NOTE | 2019-03-16 06:48 | NUR ---
NURSE NOTES: Spoke with Dr. Toussaint and got admission orders.
--- NOTE | 2019-03-16 07:44 | NUR ---
NURSE NOTES: Handoff received from MARLENY Godinez. Patient received awake and alert and resting in bed,able to make needs known. no acute signs of distress noted. Patient has iv site clean, dry and intact, saline locked. Bed in the low and locked position, call light within reach. will continue to monitor.
--- NOTE | 2019-03-16 07:56 | NUR ---
HAND-OFF: Report given to MARLENY Lopez.
--- NOTE | 2019-03-16 07:57 | NUR ---
NURSE NOTES: Endorsed Novolog coverage to AM nurse.
[2019-03-16 08:00] VITALS: BP 124/68
[2019-03-16] MEDS: NovoLOG Insulin Flexpen SUBQ SCH ×5 (08:29→21:00)
[2019-03-16] MEDS: Piperacillin/Tazobactam 3.375 GM in NS 110 ML IVPB SCH ×2 (08:33→20:43)
[2019-03-16] MEDS: Enoxaparin 30mg Inj SUBQ SCH (08:40)
--- NOTE | 2019-03-16 11:27 | Diagnostic Imaging Report ---
Indication: Foot pain, infection Technique: 3 views of the left foot Comparison: None FINDINGS/IMPRESSION: * Bones appear demineralized. * No appreciable acute fracture or dislocation. * A large amount of gas is noted within the plantar soft tissues of the foot, extending back to the level of the calcaneus. The possibility of a necrotizing infection is not excluded and correlation with physical exam findings is recommended. There appears to be a soft tissue ulcer involving the second digit. The possibility of subtle bony changes related to an acute osteomyelitis in the second digit can be considered although evaluation is limited to overlying gas. * There are extensive atherosclerotic vascular calcifications. Study obtained via the emergency department however patient admitted to the hospital at time of dictation of the final report. Findings of final report discussed with the patient's treating nurse on 4E. RN to convey findings to the covering MD.
[2019-03-16 12:00] VITALS: BP 126/70
--- NOTE | 2019-03-16 13:45 | NUR ---
RD ASSESSMENT & RECOMMENDATIONS SEE CARE ACTIVITY FOR COMPLETE ASSESSMENT DAILY ESTIMATED NEEDS: Needs based on ESRD on HD, Wound, DM/ 73.9kg 25-30 kcals/kg 3795-5754 total kcals 1.25-1.8 g protein/kg 92-133 g total protein Fluid per MD, on HD mL/kg total fluid mLs NUTRITION DIAGNOSIS: * Increased kcal and protein needs R/T wound healing and renal dysfunction as evidenced by pt admitted w/ gangrenous 2nd toe on the left foot, pending eval, w/ ESRD on HD. * Altered nutrition related lab values R/T diabetes, sepsis as evidenced by critically elev BG upon adm (745*), elev POC glu (387, 365), A1C 11.6, critically elev wbc (27.0*). CURRENT DIET:[facility] MED PO DIET RECOMMENDATIONS: RENAL/ CCHO LOW + DOUBLE PROTEIN PORTIONS ADDITIONAL RECOMMENDATIONS: 1) Daily standing or calibrated bedscale wt 2) Monitor BGs closely for hyperglycemia as well as hypoglycemia -> pt on Levemir + TIAC novolog + NISS at this time 3) Monitor lytes: f/up K (K 5.8 on 03/16), check phos level (not yet checked) 4) Wound healing: add Nephrovite x 1 add Yoan 1pkt BID
--- NOTE | 2019-03-16 14:11 | History & Physical ---
History of Present Illness General Reason for Hospitalization: Abnormal Labs Present Illness Allergies: Coded Allergies: NO KNOWN ALLERGIES (Verified Allergy, Unknown, 12/04/17) Medication History Scheduled Amlodipine Besylate (Norvasc), 5 MG ORAL DAILY, (Reported) Aspirin* (Aspirin*), 81 MG ORAL DAILY, (Reported) Atorvastatin (Lipitor), 10 MG ORAL BEDTIME, (Reported) Cefepime Hcl/D5w (Cefepime-Dextrose 1 Gm/50 Ml), 500 MG IVPB Q24H Epoetin Daniel (Procrit), 5,000 UNITS SUBQ TUE- Escitalopram Oxalate* (Lexapro*), 10 MG ORAL DAILY, (Reported) Fluconazole* (Diflucan*), 200 MG ORAL DAILY Hydralazine Hcl* (Hydralazine Hcl*), 50 MG ORAL EVERY 8 HOURS, (Reported) Metoprolol Succinate* (Metoprolol Succinate*), 200 MG ORAL DAILY, (Reported) Pravastatin Sod* (Pravastatin Sod*), 40 MG ORAL BEDTIME, (Reported) Sevelamer Carbonate* (Renvela*), 800 MG ORAL THREE TIMES A DAY, (Reported) Valsartan (Diovan), 160 MG ORAL DAILY, (Reported) Scheduled PRN Temazepam* (Restoril*), 15 MG ORAL HSPRN PRN Miscellaneous Medications Isosorbide Mononitrate (Isosorbide Mononitrate Er), 30 MG PO, (Reported) Robinson/Polymyx B Sulf/Dexameth (Rbpsxr-Mygbe-Cuejuoth Eye Drop), 3.5 ML OP, ( Reported) Promethazine HCl/Codeine (Prometh-Codein 6.25-10 mg/5 ml), 5 ML PO, (Reported) Sucroferric Oxyhydroxide (Velphoro), 500 MG PO, (Reported) Sucroferric Oxyhydroxide (Velphoro), 500 MG PO, (Reported) Patient History Healthcare decision maker Resuscitation status Full Code Advanced Directive on File Physical Exam Last 24 Hour Vital Signs Date Time Temp Pulse Resp B/P (MAP) Pulse Ox O2 Delivery O2 Flow Rate FiO2 03/16/19 12:00 98.5 75 19 126/70 (88) 99 03/16/19 08:00 Room Air 03/16/19 08:00 98.8 72 17 124/68 (86) 100 03/16/19 04:00 99.0 95 20 131/77 (95) 98 03/16/19 03:00 Room Air 03/16/19 01:40 98.2 98 22 141/72 100 Room Air 03/16/19 00:50 98.2 98 22 141/72 100 Room Air 03/16/19 00:26 204/84 03/16/19 00:26 204/84 03/15/19 22:35 98.2 104 18 149/69 100 Room Air 03/15/19 21:13 98.2 105 16 164/82 96 Room Air 03/15/19 21:04 98.2 98 16 164/82 (109) 96 Room Air Intake and Output 03/15/19 03/16/19 19:00 07:00 Intake Total 8 ml Output Total 0 ml Balance 8 ml Intake Oral 8 ml Output Urine Total 0 ml Laboratory Tests Test 03/15/19 21:36 03/16/19 08:45 White Blood Count 27.0 K/UL (4.8-10.8) *H Red Blood Count 3.95 M/UL (4.70-6.10) L Hemoglobin 12.4 G/DL (14.2-18.0) L Hematocrit 38.0 % (42.0-52.0) L Mean Corpuscular Volume 96 FL (80-99) Mean Corpuscular Hemoglobin 31.5 PG (27.0-31.0) H Mean Corpuscular Hemoglobin Concent 32.8 G/DL (32.0-36.0) Red Cell Distribution Width 14.7 % (11.6-14.8) Platelet Count 357 K/UL (150-450) Mean Platelet Volume 7.9 FL (6.5-10.1) Neutrophils (%) (Auto) % (45.0-75.0) Lymphocytes (%) (Auto) % (20.0-45.0) Monocytes (%) (Auto) % (1.0-10.0) Eosinophils (%) (Auto) % (0.0-3.0) Basophils (%) (Auto) % (0.0-2.0) Differential Total Cells Counted 100 Neutrophils % (Manual) 82 % (45-75) H Lymphocytes % (Manual) 8 % (20-45) L Monocytes % (Manual) 5 % (1-10) Eosinophils % (Manual) 0 % (0-3) Basophils % (Manual) 1 % (0-2) Band Neutrophils 4 % (0-8) Platelet Estimate Adequate Platelet Morphology Normal Red Blood Cell Morphology Normal Prothrombin Time 11.8 SEC (9.30-11.50) H Prothromb Time International Ratio 1.1 (0.9-1.1) Activated Partial Thromboplast Time 40 SEC (23-33) H Sodium Level 128 MMOL/L (136-145) L Potassium Level 5.8 MMOL/L (3.5-5.1) H Chloride Level 91 MMOL/L (98-107) L Carbon Dioxide Level 29 MMOL/L (21-32) Anion Gap 8 mmol/L (5-15) Blood Urea Nitrogen 33 mg/dL (7-18) H Creatinine 6.1 MG/DL (0.55-1.30) H Estimat Glomerular Filtration Rate 11.9 mL/min (>60) Glucose Level 745 MG/DL (74-106) *H Calcium Level 10.3 MG/DL (8.5-10.1) H Hemoglobin A1c 11.6 % (4.3-6.0) H Height (Feet): 5 Height (Inches): 6.00 Weight (Pounds): 156 Medications Current Medications Medications (Trade) Dose Ordered Sig/Felix Route PRN Reason Start Time Stop Time Status Last Admin Dose Admin Acetaminophen (Tylenol) 650 mg Q4H PRN ORAL Mild Pain/Temp > 100.5 03/16/19 06:30 04/15/19 06:29 Acetaminophen/ Hydrocodone Bitart ([place] 5/325) 1 tab Q4H PRN ORAL Moderate Pain (Pain Scale 4-6) 03/16/19 06:30 03/23/19 06:29 Dextrose (Dextrose 50%) 25 ml Q30M PRN IV Hypoglycemia 03/16/19 13:00 04/15/19 12:59 Dextrose (Dextrose 50%) 50 ml Q30M PRN IV Hypoglycemia 03/16/19 13:00 04/15/19 12:59 Enoxaparin Sodium (Lovenox) 30 mg Q24H SUBQ 03/16/19 09:00 04/15/19 08:59 03/16/19 08:40 Insulin Aspart (NovoLOG) BEFORE MEALS AND HS SUBQ 03/16/19 06:30 04/15/19 06:29 03/16/19 12:05 Insulin Aspart (NovoLOG) 6 units NOVOTIAC SUBQ 03/16/19 16:50 04/15/19 16:49 Insulin Detemir (Levemir) 18 units DAILY SUBQ 03/16/19 15:00 04/15/19 14:59 Pantoprazole (Protonix) 40 mg DAILY ORAL 03/16/19 09:00 04/15/19 08:59 03/16/19 08:33 Piperacillin Sod/ Tazobactam Sod 3.375 gm/Sodium Chloride 110 ml @ 27.5 mls/hr Q12H IVPB 03/16/19 09:00 03/23/19 08:59 03/16/19 08:33 Vancomycin HCl (Vanco rx to dose) 1 ea DAILY PRN MISC Per rx protocol 03/16/19 06:30 04/15/19 06:29 Assessment/Plan Status Narrative Present Illness HPI This a 53-year-old -[place] male with a history of diabetes, high blood pressure, renal failure on hemodialysis. Dialysis days are Tuesday, , and Tuesday. He presents with chief complaint of high blood sugar. It was worsening high at home. He also felt weak and tired. No fever chills but no nausea no vomiting. Decreased appetite. He said that he has problem with his left toe has been ongoing for 2 weeks. He has minimal pain in that area. He has no sensation in that area. No treatment has been done. Denies any other complaint. Allergies: Coded Allergies: NO KNOWN ALLERGIES (Verified Allergy, Unknown, 12/04/17) Patient History Past Medical History: see triage record, old chart reviewed, DM, HTN, renal disease, dialysis Past Surgical History: other Pertinent Family History: none Social History: Denies: smoking Immunizations: other Reviewed Nursing Documentation: PMH: Agreed; PSxH: Agreed Nursing Documentation-PMH Past Medical History: No History, Except For Hx Hypertension: Yes Hx Diabetes: Yes Hx Cancer: No Hx Gastrointestinal Problems: No Hx Dialysis: Yes - tues,th,sat shunt on right arm Hx Neurological Problems: No Review of Systems Constitutional: Reports: malaise, weakness Eye: Denies: eye pain, blurred vision ENT: Denies: ear pain, nose congestion, throat swelling Respiratory: Denies: cough, shortness of breath Cardiovascular: Denies: chest pain, palpitations Gastrointestinal: Denies: abdominal pain, diarrhea, nausea, vomiting Musculoskeletal: Denies: back pain, joint pain Skin: Denies: rash Neurological: Denies: headache, numbness Endocrine: Denies: increased thirst, increased urine Hematologic/Lymphatic: Denies: easy bruising All Other Systems: negative except mentioned in HPI Physical Exam Sp02 EP Interpretation: reviewed, normal General Appearance: no apparent distress, alert, thin Head: normocephalic, atraumatic Eyes: bilateral eye PERRL, bilateral eye EOMI ENT: hearing grossly normal, normal pharynx Neck: full range of motion, supple, no meningismus Respiratory: chest non-tender, lungs clear, normal breath sounds Cardiovascular #1: regular rate, rhythm, no murmur Gastrointestinal: normal bowel sounds, non tender, no mass, no organomegaly, no bruit, non-distended Musculoskeletal: back normal, normal range of motion, gait/station normal, other - Right foot with transmetatarsal amputation. Left foot: His second toe show wet gangrene. Extended to the sole of the foot. Unable to palpate a pulse. Psychiatric: mood/affect normal Assessment/Plan: A/P: 1- Sepsis 2- Lt foot OM/Cellulitis 3- ESRDx HD 4- DM-2 5- HTN 6- Anemia 7- PVD, Plan: Emprical abx Pod, Vas, Nephro, ENdo, ID are consulted [facility] Hospital declaration INPATIENT level of care is warranted for this patient because patient is a 89 year old with who presents with suspicion of . I have a high level of concern because . Patient is at high risk for . Plan of care/treatment include . Patient care is expected to be greater than 2 midnights. OBSERVATION level of care is warranted for this patient. Patient is a 89 year old with who presents with . Patient will be admitted for 1 midnight, but if additional night(s) is/are necessary, patient will be converted to inpatient status for the entire hospitalization Disposition: Once the patient is stable to leave the hospital, I anticipate the patient will likely be discharged to the following environment: Estimated discharge date: I spent 70 minutes on this patient's case, and minutes was dedicated to counseling and/or care coordination. MIPS (Merit-based Incentive Payment System) Applicable CPT: 19985, 03203 CHECK ALL THAT ARE MET: Measure #5 (CHF): All ages. Prescribe VASYL/ARB upon discharge for patients with left ventricular systolic dysfunction. If not, the reason is clearly documented in the medical chart. Measure #8 (CHF): All ages. Prescribe a beta fitz upon discharge for patients with left ventricular systolic dysfunction. If not, the reason is clearly documented in the medical chart. Measure #47 Advance care plan or surrogate decision maker documented in the medical record. Measure #130 The provider has documented, updated, or reviewed the patients current medication list and has documented it in the patients note. Measure #374 (All): Send report to referring provider. Measure #407(Sepsis due to MSSA bacteremia): Age 18+ Patient treated with a beta-lactam antibiotic (Nafcillin, Oxacillin or Cefazolin) as definitive therapy. MEDICAL COMPLEXITY High complexity medical decision making (need 2/3 categories) Problem - need 4 points Acute/new problem with new plan for workup (4 points, 1 max) Acute/new problem without additional workup (3 points, 1 max) Unstable chronic problem actively being managed (2 point each, 2 max) Stable chronic problem actively being managed (1 point each, 2 max) Self-limited/transient process (constipation, muscle ache, etc) (1 point each , 2 max) Data - need 4 points Reviewed labs/imaging studies (1 points, 2 max) Independent review of imaging (EKG, xrays, etc) (2 points, 2 max) Discussed case with consult/other MD/RN (2 points, 2 max) High Risk - qualify if have one of the following: Severe exacerbation of acute problem, acute mental status change, IV narcotics , monitoring drug levels (vancomycin, INR, tacrolimus etc) Candida Toussaint MD Mar 16, 2019 14:11
--- NOTE | 2019-03-16 14:32 | Infectious Diseases Prog Note ---
Assessment/Plan Problems: (1) Gangrene of toe of left foot Assessment & Plan: with gas in the plantar area, possible necrotizing fasciitis , continue vancomycin, zosyn and add clindamycin , send wound draining for culture, melt supervisor eval for amputation as soon as possible (2) Diabetes mellitus Assessment & Plan: poorly controlled with complication continue tight glycemic control to keep blood glucose between 100-140 (3) Sepsis Assessment & Plan: due to the above, continue wide spectrum antibiotics pending blood culture (4) Osteomyelitis of left foot Assessment & Plan: continue wide spectrum antibiotics pending amputation Subjective Allergies: Coded Allergies: NO KNOWN ALLERGIES (Verified Allergy, Unknown, 12/04/17) Objective Vital Signs Last 24 Hour Vital Signs Date Time Temp Pulse Resp B/P (MAP) Pulse Ox O2 Delivery O2 Flow Rate FiO2 03/16/19 12:00 98.5 75 19 126/70 (88) 99 03/16/19 08:00 Room Air 03/16/19 08:00 98.8 72 17 124/68 (86) 100 03/16/19 04:00 99.0 95 20 131/77 (95) 98 03/16/19 03:00 Room Air 03/16/19 01:40 98.2 98 22 141/72 100 Room Air 03/16/19 00:50 98.2 98 22 141/72 100 Room Air 03/16/19 00:26 204/84 03/16/19 00:26 204/84 03/15/19 22:35 98.2 104 18 149/69 100 Room Air 03/15/19 21:13 98.2 105 16 164/82 96 Room Air 03/15/19 21:04 98.2 98 16 164/82 (109) 96 Room Air Height (Feet): 5 Height (Inches): 6.00 Weight (Pounds): 156 Laboratory Tests Test 03/15/19 21:36 03/16/19 08:45 White Blood Count 27.0 K/UL (4.8-10.8) *H Red Blood Count 3.95 M/UL (4.70-6.10) L Hemoglobin 12.4 G/DL (14.2-18.0) L Hematocrit 38.0 % (42.0-52.0) L Mean Corpuscular Volume 96 FL (80-99) Mean Corpuscular Hemoglobin 31.5 PG (27.0-31.0) H Mean Corpuscular Hemoglobin Concent 32.8 G/DL (32.0-36.0) Red Cell Distribution Width 14.7 % (11.6-14.8) Platelet Count 357 K/UL (150-450) Mean Platelet Volume 7.9 FL (6.5-10.1) Neutrophils (%) (Auto) % (45.0-75.0) Lymphocytes (%) (Auto) % (20.0-45.0) Monocytes (%) (Auto) % (1.0-10.0) Eosinophils (%) (Auto) % (0.0-3.0) Basophils (%) (Auto) % (0.0-2.0) Differential Total Cells Counted 100 Neutrophils % (Manual) 82 % (45-75) H Lymphocytes % (Manual) 8 % (20-45) L Monocytes % (Manual) 5 % (1-10) Eosinophils % (Manual) 0 % (0-3) Basophils % (Manual) 1 % (0-2) Band Neutrophils 4 % (0-8) Platelet Estimate Adequate Platelet Morphology Normal Red Blood Cell Morphology Normal Prothrombin Time 11.8 SEC (9.30-11.50) H Prothromb Time International Ratio 1.1 (0.9-1.1) Activated Partial Thromboplast Time 40 SEC (23-33) H Sodium Level 128 MMOL/L (136-145) L Potassium Level 5.8 MMOL/L (3.5-5.1) H Chloride Level 91 MMOL/L (98-107) L Carbon Dioxide Level 29 MMOL/L (21-32) Anion Gap 8 mmol/L (5-15) Blood Urea Nitrogen 33 mg/dL (7-18) H Creatinine 6.1 MG/DL (0.55-1.30) H Estimat Glomerular Filtration Rate 11.9 mL/min (>60) Glucose Level 745 MG/DL (74-106) *H Calcium Level 10.3 MG/DL (8.5-10.1) H Hemoglobin A1c 11.6 % (4.3-6.0) H Current Medications Medications (Trade) Dose Ordered Sig/Felix Route PRN Reason Start Time Stop Time Status Last Admin Dose Admin Acetaminophen (Tylenol) 650 mg Q4H PRN ORAL Mild Pain/Temp > 100.5 03/16/19 06:30 04/15/19 06:29 Acetaminophen/ Hydrocodone Bitart ([place] 5/325) 1 tab Q4H PRN ORAL Moderate Pain (Pain Scale 4-6) 03/16/19 06:30 03/23/19 06:29 Dextrose (Dextrose 50%) 25 ml Q30M PRN IV Hypoglycemia 03/16/19 13:00 04/15/19 12:59 Dextrose (Dextrose 50%) 50 ml Q30M PRN IV Hypoglycemia 03/16/19 13:00 04/15/19 12:59 Enoxaparin Sodium (Lovenox) 30 mg Q24H SUBQ 03/16/19 09:00 04/15/19 08:59 03/16/19 08:40 Insulin Aspart (NovoLOG) BEFORE MEALS AND HS SUBQ 03/16/19 06:30 04/15/19 06:29 03/16/19 12:05 Insulin Aspart (NovoLOG) 6 units NOVOTIAC SUBQ 03/16/19 16:50 04/15/19 16:49 Insulin Detemir (Levemir) 18 units DAILY SUBQ 03/16/19 15:00 04/15/19 14:59 Pantoprazole (Protonix) 40 mg DAILY ORAL 03/16/19 09:00 04/15/19 08:59 03/16/19 08:33 Piperacillin Sod/ Tazobactam Sod 3.375 gm/Sodium Chloride 110 ml @ 27.5 mls/hr Q12H IVPB 03/16/19 09:00 03/23/19 08:59 03/16/19 08:33 Sodium Polystyrene Sulfonate (Kayexalate w/ Sorb 15gm/60ml Susp) 30 gm ONCE ORAL 03/16/19 16:00 03/16/19 18:00 Vancomycin HCl (Vanco rx to dose) 1 ea DAILY PRN MISC Per rx protocol 03/16/19 06:30 04/15/19 06:29 Cira Ceja M.D. Mar 16, 2019 14:32
--- NOTE | 2019-03-16 14:36 | Consultation ---
Consult Note Assessment/Plan A/ 1) Gas gangrene left foot 2) Sepsis 3) ESRD on HD 4) Uncontrolled DM 5) DM with neuropathy 6) PVD 7) h/o noncompliance P/ 1) Patient was seen and evaluated this morning at 9am. Patient was advised that he would need amputation/abx/wound care pending vascular consult. Apparently, x- ray results were conveyed to nurse this morning at 11:22am this morning but he failed to notify any physicians that gas was diagnosed. I called nurse to discuss. I placed patient on NPO to perform procedure later today. D/W PMD and anesthesia and they advised waiting until tomorrow to medically optimize. Patient needs dialysis. 2) Cont wound care and abx 3) Dr Alexis called for vascular consult 4) Consent and NPO orders placed 5) Patient is on the schedule for tomorrow morning at 9am L[address] DPM Mar 16, 2019 14:36
--- NOTE | 2019-03-16 14:50 | NUR ---
CASE MANAGEMENT: INITIAL REVIEW 53YR OLD MALE FROM HOME CC: ABNORMAL LAB; INCOMPLIANT WITH MEDICATION SI: LEFT FOOT GAS GANGRENE . SEPSIS . ESRD ON HD . UNCONTROLLED DM II . PVD 98.2 98 16 164/82 96% ON RA WBC 27.0 NA+ 128 K+ 5.8 BUN 33 CREAT 6.1 CL- 91 H/H 12.4/38 BG 745 CA+10.3 IS:IV ZOSYN X1 IV VANCO X1 IV NOVOLOG X2 XRAY FOOT - possibility of a necrotizing \: 4E MED SURG UNIT
[2019-03-16] MEDS ORDERED: Levemir Flexpen SUBQ SCH (15:00)
[2019-03-16 15:20] LABS: HEMATOCRIT 35.9 % (42.0-52.0); HEMOGLOBIN 11.2 G/DL (14.2-18.0); MEAN CORPUSCULAR VOLUME 97 FL (80-99); PLATELET COUNT 363 K/UL (150-450); RED BLOOD COUNT 3.71 M/UL (4.70-6.10); RED CELL DISTRIBUTION WIDTH 15.3 % (11.6-14.8)
[2019-03-16 15:25] LABS: WHITE BLOOD COUNT 26.9 K/UL (4.8-10.8)
[2019-03-16 15:42] LABS: ANION GAP 11 mmol/L (5-15); BLOOD UREA NITROGEN 48 mg/dL (7-18); CALCIUM 9.4 MG/DL (8.5-10.1); CARBON DIOXIDE 29 MMOL/L (21-32); CHLORIDE 94 MMOL/L (98-107); CREATININE 6.9 MG/DL (0.55-1.30); SODIUM 134 MMOL/L (136-145)
[2019-03-16 16:00] VITALS: BP 130/73
[2019-03-16] MEDS ORDERED: Sodium Polystyrene Sulfon/Sorb 15gm/60ml Susp ORAL SCH (16:00)
[2019-03-16] MEDS: Clindamycin 900mg 50 ML IV SCH ×2 (16:08→23:28)
--- NOTE | 2019-03-16 16:15 | NUR ---
NURSE NOTES: Dr Nicolas made rounds on patient and gave instructions to clean both legs and apply betadine between the toes. Also gave orders for bilateral venous and arterial duplex and EKG routine. He also asked for the results to be faxed to him at [phone].
--- NOTE | 2019-03-16 16:29 | NUR ---
NURSE NOTES: called and left message for Dr Toussaint to notify of critical blood sugar of 443.
--- NOTE | 2019-03-16 17:36 | NUR ---
NURSE NOTES: Cleaned both legs and applied betadine soak gauze between the toes, then wrapped with kerlix per MD orders.
--- NOTE | 2019-03-16 19:23 | Cardiology Progress Note ---
Assessment/Plan Assessment/Plan The patient is seen and examined, full consult note is dictated. Objective Last 24 Hour Vital Signs Date Time Temp Pulse Resp B/P (MAP) Pulse Ox O2 Delivery O2 Flow Rate FiO2 03/16/19 16:00 98.7 74 18 130/73 (92) 100 03/16/19 12:00 98.5 75 19 126/70 (88) 99 03/16/19 08:00 Room Air 03/16/19 08:00 98.8 72 17 124/68 (86) 100 03/16/19 04:00 99.0 95 20 131/77 (95) 98 03/16/19 03:00 Room Air 03/16/19 01:40 98.2 98 22 141/72 100 Room Air 03/16/19 00:50 98.2 98 22 141/72 100 Room Air 03/16/19 00:26 204/84 03/16/19 00:26 204/84 03/15/19 22:35 98.2 104 18 149/69 100 Room Air 03/15/19 21:13 98.2 105 16 164/82 96 Room Air 03/15/19 21:04 98.2 98 16 164/82 (109) 96 Room Air Intake and Output 03/15/19 03/16/19 19:00 07:00 Intake Total 8 ml Output Total 0 ml Balance 8 ml Intake Oral 8 ml Output Urine Total 0 ml Laboratory Tests Test 03/15/19 21:36 03/16/19 08:45 03/16/19 14:10 White Blood Count 27.0 K/UL (4.8-10.8) *H 26.9 K/UL (4.8-10.8) *H Red Blood Count 3.95 M/UL (4.70-6.10) L 3.71 M/UL (4.70-6.10) L Hemoglobin 12.4 G/DL (14.2-18.0) L 11.2 G/DL (14.2-18.0) L Hematocrit 38.0 % (42.0-52.0) L 35.9 % (42.0-52.0) L Mean Corpuscular Volume 96 FL (80-99) 97 FL (80-99) Mean Corpuscular Hemoglobin 31.5 PG (27.0-31.0) H 30.1 PG (27.0-31.0) Mean Corpuscular Hemoglobin Concent 32.8 G/DL (32.0-36.0) 31.1 G/DL (32.0-36.0) L Red Cell Distribution Width 14.7 % (11.6-14.8) 15.3 % (11.6-14.8) H Platelet Count 357 K/UL (150-450) 363 K/UL (150-450) Mean Platelet Volume 7.9 FL (6.5-10.1) 7.6 FL (6.5-10.1) Neutrophils (%) (Auto) % (45.0-75.0) % (45.0-75.0) Lymphocytes (%) (Auto) % (20.0-45.0) % (20.0-45.0) Monocytes (%) (Auto) % (1.0-10.0) % (1.0-10.0) Eosinophils (%) (Auto) % (0.0-3.0) % (0.0-3.0) Basophils (%) (Auto) % (0.0-2.0) % (0.0-2.0) Differential Total Cells Counted 100 100 Neutrophils % (Manual) 82 % (45-75) H 85 % (45-75) H Lymphocytes % (Manual) 8 % (20-45) L 8 % (20-45) L Monocytes % (Manual) 5 % (1-10) 5 % (1-10) Eosinophils % (Manual) 0 % (0-3) 0 % (0-3) Basophils % (Manual) 1 % (0-2) 0 % (0-2) Band Neutrophils 4 % (0-8) 2 % (0-8) Platelet Estimate Adequate Adequate Platelet Morphology Normal Normal Red Blood Cell Morphology Normal Prothrombin Time 11.8 SEC (9.30-11.50) H Prothromb Time International Ratio 1.1 (0.9-1.1) Activated Partial Thromboplast Time 40 SEC (23-33) H Sodium Level 128 MMOL/L (136-145) L 134 MMOL/L (136-145) L Potassium Level 5.8 MMOL/L (3.5-5.1) H 5.0 MMOL/L (3.5-5.1) Chloride Level 91 MMOL/L (98-107) L 94 MMOL/L (98-107) L Carbon Dioxide Level 29 MMOL/L (21-32) 29 MMOL/L (21-32) Anion Gap 8 mmol/L (5-15) 11 mmol/L (5-15) Blood Urea Nitrogen 33 mg/dL (7-18) H 48 mg/dL (7-18) H Creatinine 6.1 MG/DL (0.55-1.30) H 6.9 MG/DL (0.55-1.30) H Estimat Glomerular Filtration Rate 11.9 mL/min (>60) 10.3 mL/min (>60) Glucose Level 745 MG/DL (74-106) *H 462 MG/DL (74-106) #H Calcium Level 10.3 MG/DL (8.5-10.1) H 9.4 MG/DL (8.5-10.1) Hemoglobin A1c 11.6 % (4.3-6.0) H Hypochromasia 1+ Anisocytosis 1+ Lizandro Falcon MD Mar 16, 2019 19:23
--- NOTE | 2019-03-16 19:29 | NUR ---
NURSE NOTES: Received patient in bed. A/O x4. On room air, respirations even and unlabored. Patient denies pain. 1/2 side rails up. Dressing on left foot dry and intact. Reeducated patient to remain NPO. IV in left hand noted, no redness or swelling. Right arm hemodialysis shunt intact.
--- NOTE | 2019-03-16 19:39 | NUR ---
HAND-OFF: Report given to MARLENY Horner.
[2019-03-16 20:00] VITALS: BP 156/88
[2019-03-16] MEDS: HYDROcodone/Acetamin 5/325 tab ORAL PRN (20:43)
[2019-03-17] VITALS (12 sets, daily range): BP systolic 120–214; BP diastolic 74–108
[2019-03-17] MEDS: HYDROcodone/Acetamin 5/325 tab ORAL PRN (02:28)
--- NOTE | 2019-03-17 06:00 | NUR ---
NURSE NOTES: Notified MD of SSI and scheduled insulin, while patient is NPO diet prior to surgery. MD ordered to hold.
[2019-03-17] MEDS: NovoLOG Insulin Flexpen SUBQ SCH ×8 (06:17→20:46)
--- NOTE | 2019-03-17 06:30 | NUR ---
NURSE NOTES: Left a message with Dr. Lane's office regarding the patient requesting to speak with MD on details of the surgery.
[2019-03-17 07:11] LABS: HEMATOCRIT 34.2 % (42.0-52.0); HEMOGLOBIN 11.2 G/DL (14.2-18.0); MEAN CORPUSCULAR VOLUME 94 FL (80-99); PLATELET COUNT 336 K/UL (150-450); RED BLOOD COUNT 3.63 M/UL (4.70-6.10); RED CELL DISTRIBUTION WIDTH 15.7 % (11.6-14.8); WHITE BLOOD COUNT 18.8 K/UL (4.8-10.8)
--- NOTE | 2019-03-17 07:15 | Anethesia Preoperative Eval ---
Anesthesia Pre-op PMH/ROS General Date of Evaluation: Mar 17, 2019 Time of Evaluation: 06:42 Anesthesiologist: Cale ASA Score: ASA 3 - Emegency Mallampati Score Class I : Soft palate, uvula, fauces, pillars visible Class II: Soft palate, uvula, fauces visible Class III: Soft palate, base of uvula visible Class IV: Only hard plate visible Mallampati Classification: Class II Surgeon: Domingo Diagnosis: L Foot Gangrene Surgical Procedure: I&D L Foot, Amputate 2nd Toe Anesthesia History: none Family History: no anesthesia problems Allergies: Coded Allergies: NO KNOWN ALLERGIES (Verified Allergy, Unknown, 12/04/17) Medications: see eMAR Patient NPO?: Yes NPO Date: Mar 16, 2019 NPO Time: 1400 Past Medical History Cardiovascular: Reports: HTN Gastrointestinal/Genitourinary: Reports: ESRD - Dialysis Endocrine: Reports: DM Musculoskeletal/Integumentary: Reports: other - L Foot Gangrene PSxH Narrative: R BKA Anesthesia Pre-op Phys. Exam Physician Exam Last Vital Signs Date Time Temp Pulse Resp B/P (MAP) Pulse Ox O2 Delivery O2 Flow Rate FiO2 03/17/19 04:00 97.7 90 16 157/87 (110) 100 03/16/19 21:00 Room Air Constitutional: NAD Neurologic: CN 2-12 intact Cardiovascular: RRR Respiratory: CTA Gastrointestinal: S/NT/ND Airway Exam Mallampati Score: Class II MO: limited ROM: limited Teeth: missing, intact Anesthesia Pre-op A/P Labs Hematology Test 03/16/19 14:10 03/17/19 06:15 White Blood Count 26.9 K/UL (4.8-10.8) *H Pending Red Blood Count 3.71 M/UL (4.70-6.10) L Pending Hemoglobin 11.2 G/DL (14.2-18.0) L Pending Hematocrit 35.9 % (42.0-52.0) L Pending Mean Corpuscular Volume 97 FL (80-99) Pending Mean Corpuscular Hemoglobin 30.1 PG (27.0-31.0) Pending Mean Corpuscular Hemoglobin Concent 31.1 G/DL (32.0-36.0) L Pending Red Cell Distribution Width 15.3 % (11.6-14.8) H Pending Platelet Count 363 K/UL (150-450) Pending Mean Platelet Volume 7.6 FL (6.5-10.1) Pending Neutrophils (%) (Auto) % (45.0-75.0) Pending Lymphocytes (%) (Auto) % (20.0-45.0) Pending Monocytes (%) (Auto) % (1.0-10.0) Pending Eosinophils (%) (Auto) % (0.0-3.0) Pending Basophils (%) (Auto) % (0.0-2.0) Pending Differential Total Cells Counted 100 Neutrophils % (Manual) 85 % (45-75) H Lymphocytes % (Manual) 8 % (20-45) L Monocytes % (Manual) 5 % (1-10) Eosinophils % (Manual) 0 % (0-3) Basophils % (Manual) 0 % (0-2) Band Neutrophils 2 % (0-8) Platelet Estimate Adequate Platelet Morphology Normal Hypochromasia 1+ Anisocytosis 1+ Chemistry Test 03/16/19 08:45 03/16/19 14:10 03/17/19 06:15 Hemoglobin A1c 11.6 % (4.3-6.0) H Sodium Level 134 MMOL/L (136-145) L Pending Potassium Level 5.0 MMOL/L (3.5-5.1) Pending Chloride Level 94 MMOL/L (98-107) L Pending Carbon Dioxide Level 29 MMOL/L (21-32) Pending Anion Gap 11 mmol/L (5-15) Blood Urea Nitrogen 48 mg/dL (7-18) H Pending Creatinine 6.9 MG/DL (0.55-1.30) H Pending Estimat Glomerular Filtration Rate 10.3 mL/min (>60) Pending Glucose Level 462 MG/DL (74-106) #H Pending Calcium Level 9.4 MG/DL (8.5-10.1) Pending Total Bilirubin Pending Aspartate Amino Transf (AST/SGOT) Pending Alanine Aminotransferase (ALT/SGPT) Pending Alkaline Phosphatase Pending Total Protein Pending Albumin Pending Globulin Pending Risk Assessment & Plan Assessment: ASA 3E Plan: GA Status Change Before Surgery: No Pre-Antibiotics Drug: Nilson Castle MD Mar 17, 2019 07:15
--- NOTE | 2019-03-17 07:26 | General Progress Note ---
Progress Note Progress Note Patient was seen and examined earlier Left toe distal foot gangrene with infection Septic with high wbc 27K ESRD on HD via right arm av shunt HTN DM--poorly controlled hgbaic 11 Daily smoker cigs and pot for yrs Hx of right foot TMA amp 2+ femorals weak popliteal and DP pulses absent PT Rec Abx per ID Medical optimization in progress Left foot toe gangrene amp I&D abscess per podiatry Once medically cleared and sepsis controlled, will need left leg angiogram to assess for revascularization High risk of needing higher left leg amputation with his extent of infection and morbidities--patient aware d/w pt at length and nurse at bedside Petr Alexis MD Mar 17, 2019 07:26
--- NOTE | 2019-03-17 07:28 | NUR ---
HAND-OFF: Report given to Viraj FARMER.
[2019-03-17 07:50] LABS: ALANINE AMINOTRANSFERASE < 6 U/L (12-78); ALBUMIN/GLOBULIN RATIO 0.3 (1.0-2.7); ALKALINE PHOSPHATASE 164 U/L (46-116); ANION GAP 11 mmol/L (5-15); ASPARTATE AMINO TRANSFERASE < 5 U/L (15-37); BILIRUBIN,TOTAL 0.6 MG/DL (0.2-1.0); BLOOD UREA NITROGEN 40 mg/dL (7-18); CALCIUM 9.1 MG/DL (8.5-10.1); CARBON DIOXIDE 27 MMOL/L (21-32); CHLORIDE 91 MMOL/L (98-107); POTASSIUM 3.5 MMOL/L (3.5-5.1); SODIUM 129 MMOL/L (136-145)
--- NOTE | 2019-03-17 08:00 | NUR ---
NURSE NOTES: Received pt from MARLENY Horner, pt was waiting for surgery and during HD. call light w/in reach
[2019-03-17] MEDS: Clindamycin 900mg 50 ML IV SCH ×2 (08:31→15:30)
[2019-03-17] MEDS ORDERED: Levemir Flexpen SUBQ SCH (09:00)
[2019-03-17] MEDS: Enoxaparin 30mg Inj SUBQ SCH (09:00)
[2019-03-17] MEDS: Piperacillin/Tazobactam 3.375 GM in NS 110 ML IVPB SCH ×2 (09:00→16:59)
[2019-03-17] MEDS: Levemir Flexpen SUBQ SCH (09:15)
[2019-03-17] MEDS ORDERED: Bacitracin 50000 Units Vial ONE (09:18)
[2019-03-17] MEDS ORDERED: NeoSporin Gu Irrig 1ml Amp IRRIG ONE (09:19)
[2019-03-17] MEDS ORDERED: Bupivacaine 0.25% Inj 30ml INJ ONE (09:28)
[2019-03-17] MEDS ORDERED: Lidocaine 1% MPF 10mg/ml 5ml ONE (09:29)
[2019-03-17] MEDS ORDERED: NS Irrig 1000ml ONE (09:30)
[2019-03-17] MEDS ORDERED: Sterile Water Irrig 1000ml IRRIG ONE (09:30)
[2019-03-17] MEDS ORDERED: Propofol 200mg/20ml IV ONE (09:30)
--- NOTE | 2019-03-17 09:44 | Pre-Procedure Note/Attestation ---
Pre-Procedure Note/Attestation Complete Prior to Procedure Planned Procedure: left Procedure Narrative: I&D, left 2nd toe amp and debridement of all nonviable bone and tissue left foot Indications for Procedure Pre-Operative Diagnosis: 1) Gas Gangrene 2) PAD 3) DM Attestation I attest that I discussed the nature of the procedure; its benefits; risks and complications; and alternatives (and the risks and benefits of such alternatives ), prior to the procedure, with the patient (or the patient's legal customer development representative). I attest that, if there was a reasonable possibility of needing a blood transfusion, the patient (or the patient's legal customer development representative) was given the [place] Department [employer] Services standardized written summary, pursuant to the Rey Richard Blood Safety Act ([place] Health and Safety Code # 1645, as amended). I attest that I re-evaluated the patient just prior to the surgery and that there has been no change in the patient's H&P, except as documented below: Landon Lane DPM Mar 17, 2019 09:44
[2019-03-17] MEDS ORDERED: LR 1000ml 1,000 ML IVLG SCH (10:01)
--- NOTE | 2019-03-17 10:03 | Immediate Post-Op Evaluation ---
Immediate Post-Op Evalulation Immediate Post-Op Evalulation Procedure: L Foot I&D, 2nd Toe Amputation Date of Evaluation: Mar 17, 2019 Time of Evaluation: 11:07 IV Fluids: 350 NS Blood Products: 0 Estimated Blood Loss: 25 Urinary Output: 0 Blood Pressure Systolic: 111 Blood Pressure Diastolic: 69 Pulse Rate: 93 Respiratory Rate: 16 O2 Sat by Pulse Oximetry: 100 Temperature (Fahrenheit): 97.4 Pain Score (1-10): 1 Nausea: No Vomiting: No Complications 0 Patient Status: awake, reacts, patent, none Hydration Status: adequate Dru Gram Ancef IV Given Within 1 Hr of Incision: Yes Time Given: 09:46 Nilson Madsen MD Mar 17, 2019 10:03
[2019-03-17] MEDS ORDERED: HYDROcodone/Acetamin 7.5/325 tab ORAL PRN (10:15)
[2019-03-17] MEDS ORDERED: Labetalol 5mg/ml 20ml vial IV PRN (10:15)
[2019-03-17] MEDS ORDERED: fentaNYL 100 mcg/2 mL IV PRN (10:15)
[2019-03-17] MEDS ORDERED: LORazepam Inj 2mg/ml 1ml IV PRN (10:15)
[2019-03-17] MEDS ORDERED: Meperidine 50mg/ml Inj(FOR RIGORS ONLY) IVP PRN (10:15)
[2019-03-17] MEDS ORDERED: DiphenhydrAMINE 50mg/ml Inj IVP PRN (10:15)
[2019-03-17] MEDS ORDERED: Hydromorphone 0.5mg/0.5ml inj IVP PRN (10:15)
[2019-03-17] MEDS ORDERED: Metoclopramide 10mg/2ml Inj IVP PRN (10:15)
[2019-03-17] MEDS ORDERED: Midazolam 2mg/2ml Inj IVP PRN (10:15)
[2019-03-17] MEDS ORDERED: HYDROcodone/Acetamin 5/325 tab ORAL PRN (10:15)
[2019-03-17] MEDS ORDERED: Atropine Sulfate 0.4mg/ml inj IVP PRN (10:15)
[2019-03-17] MEDS ORDERED: oxyCODONE HCL/Acetaminophen 5/325mg ORAL PRN (10:15)
--- NOTE | 2019-03-17 10:16 | 48 Hour Post Anesthesia Eval ---
Post Anesthesia Evaluation Procedure: L Foot I&D, 2nd Toe Amputation Date of Evaluation: Mar 17, 2019 Time of Evaluation: 13:12 Blood Pressure Systolic: 156 0: 72 Pulse Rate: 91 Respiratory Rate: 18 Temperature (Fahrenheit): 98 O2 Sat by Pulse Oximetry: 96 Airway: patent Nausea: No Vomiting: No Pain Intensity: 1 Hydration Status: adequate Cardiopulmonary Status: Stable Mental Status/LOC: patient returned to baseline Follow-up Care/Observations: 0 Post-Anesthesia Complications: 0 Follow-up care needed: N/A Nilson Madsen MD Mar 17, 2019 10:16
--- NOTE | 2019-03-17 10:50 | Brief Operative Note ---
Immediate Post Operative Note Operative Note Pre-op Diagnosis: 1) Gas gangrene left foot with gangrenous left 2nd toe 2) Sepsis 3) ESRD on HD 4) Uncontrolled DM 5) DM with neuropathy 6) PVD 7) h/o noncompliance Procedure: 1) Amputation of left 2nd toe with met head 2) Incision and drainage deep to fascia left foot 3) Excisional debridement to level of bone left foot Post-op Diagnosis: same as pre-op plus - Large abscess left foot Surgeon: Landon Lane DPM Paper Sales Representative: none Additional Surgeons: none Anesthesiologist: Dr Mak Anesthesia: local - 0.25% plain marcaine 10cc in ankle block, MAC Specimen: yes - left 2nd toe, cultures Complications: none Condition: stable Fluids: per anesthesia Estimated Blood Loss: volume - 5cc Drains: other - packing Implant(s) used?: Landon Laws DPM Mar 17, 2019 10:50
--- NOTE | 2019-03-17 12:03 | General Progress Note ---
Assessment/Plan Assessment/Plan: S: I am feeling better O: Denies pain . HD at bedside. General Appearance: no apparent distress, alert, thin Head: normocephalic, atraumatic Eyes: bilateral eye PERRL, bilateral eye EOMI ENT: hearing grossly normal, normal pharynx Neck: full range of motion, supple, no meningismus Respiratory: chest non-tender, lungs clear, normal breath sounds Cardiovascular #1: regular rate, rhythm, no murmur Gastrointestinal: normal bowel sounds, non tender, no mass, no organomegaly, no bruit, non-distended Musculoskeletal: back normal, normal range of motion, gait/station normal, other - Right foot with transmetatarsal amputation. Left foot: His second toe show wet gangrene. Extended to the sole of the foot. Unable to palpate a pulse. Psychiatric: mood/affect normal Meds and Labs reviwed today on 03/17/2019 Assessment/Plan: A/P: 1- Sepsis 2- Lt foot OM/ abcess 3- ESRDx HD 4- DM-2 5- HTN 6- Anemia 7- PVD, Plan: Emprical abx Notes from Pod, Vas, Nephro, ENdo, reviewd D/w Nephro Proceed with Prcedure by Podiatry Transfer to [facility] for [facility] for preop and Vas procedure Subjective Allergies: Coded Allergies: NO KNOWN ALLERGIES (Verified Allergy, Unknown, 12/04/17) Objective Last 24 Hour Vital Signs Date Time Temp Pulse Resp B/P (MAP) Pulse Ox O2 Delivery O2 Flow Rate FiO2 03/17/19 11:30 89 19 153/92 100 Simple Mask 6 03/17/19 11:15 91 12 136/82 100 Simple Mask 6 03/17/19 11:05 96 12 124/80 100 Simple Mask 6 03/17/19 11:00 96 12 125/75 100 Simple Mask 6 03/17/19 10:56 97.4 92 12 120/74 100 Simple Mask 6 03/17/19 10:51 91 18 96 03/17/19 10:50 93 16 100 03/17/19 08:00 97.8 104 18 179/108 (131) 98 03/17/19 07:59 Room Air 03/17/19 04:00 97.7 90 16 157/87 (110) 100 1/4/20 00:00 97.7 99 16 155/75 (101) 100 03/16/19 21:00 Room Air 03/16/19 20:00 97.7 98 18 156/88 (110) 100 03/16/19 16:00 98.7 74 18 130/73 (92) 100 03/16/19 12:00 98.5 75 19 126/70 (88) 99 Intake and Output 03/16/19 03/17/19 18:59 06:59 Intake Total 220.0 ml Output Total 0 ml Balance 220.0 ml Intake Oral 60 ml IV Total 160.0 ml Output Urine Total 0 ml # Bowel Movements 2 Laboratory Tests 03/16/19 14:10: White Blood Count 26.9*H, Red Blood Count 3.71L, Hemoglobin 11.2L, Hematocrit 35.9L, Mean Corpuscular Volume 97, Mean Corpuscular Hemoglobin 30.1, Mean Corpuscular Hemoglobin Concent 31.1L, Red Cell Distribution Width 15.3H, Platelet Count 363, Mean Platelet Volume 7.6, Neutrophils (%) (Auto) , Lymphocytes (%) (Auto) , Monocytes (%) (Auto) , Eosinophils (%) (Auto) , Basophils (%) (Auto) , Differential Total Cells Counted 100, Neutrophils % ( Manual) 85H, Lymphocytes % (Manual) 8L, Monocytes % (Manual) 5, Eosinophils % ( Manual) 0, Basophils % (Manual) 0, Band Neutrophils 2, Platelet Estimate Adequate, Platelet Morphology Normal, Hypochromasia 1+, Anisocytosis 1+, Sodium Level 134L, Potassium Level 5.0, Chloride Level 94L, Carbon Dioxide Level 29, Anion Gap 11, Blood Urea Nitrogen 48H, Creatinine 6.9H, Estimat Glomerular Filtration Rate 10.3, Glucose Level 462#H, Calcium Level 9.4 03/17/19 06:15: White Blood Count 18.8H, Red Blood Count 3.63L, Hemoglobin 11.2L, Hematocrit 34.2L, Mean Corpuscular Volume 94, Mean Corpuscular Hemoglobin 30.8, Mean Corpuscular Hemoglobin Concent 32.7, Red Cell Distribution Width 15.7H, Platelet Count 336, Mean Platelet Volume 7.6, Neutrophils (%) (Auto) , Lymphocytes (%) (Auto) , Monocytes (%) (Auto) , Eosinophils (%) (Auto) , Basophils (%) (Auto) , Differential Total Cells Counted 100, Neutrophils % ( Manual) 96H, Lymphocytes % (Manual) 2L, Monocytes % (Manual) 2, Eosinophils % ( Manual) 0, Basophils % (Manual) 0, Band Neutrophils 0, Platelet Estimate Adequate, Platelet Morphology Normal, Anisocytosis 1+, Sodium Level 129L, Potassium Level 3.5, Chloride Level 91L, Carbon Dioxide Level 27, Anion Gap 11, Blood Urea Nitrogen 40H, Creatinine 6.0H, Estimat Glomerular Filtration Rate 12.1, Glucose Level 399H, Calcium Level 9.1, Total Bilirubin 0.6, Aspartate Amino Transf (AST/SGOT) < 5L, Alanine Aminotransferase (ALT/SGPT) < 6L, Alkaline Phosphatase 164H, Total Protein 7.8, Albumin 2.0L, Globulin 5.8, Albumin/Globulin Ratio 0.3L, Random Vancomycin Level 13.8 Height (Feet): 6 Height (Inches): 0.00 Weight (Pounds): 154 Candida Toussaint MD Mar 17, 2019 12:03
--- NOTE | 2019-03-17 14:26 | Infectious Diseases Prog Note ---
Assessment/Plan Problems: (1) Gangrene of toe of left foot Assessment & Plan: with gas in the plantar area, suspect deep necrotizing fasciitis, S/P amputation of left 2nd toe with met head, Incision and drainage deep to fascia left foot, and excisional debridement to level of bone left foot , continue vancomycin, zosyn and clindamycin for now , pending culture from OR , his wound draining culture is growing gram negative rods , follow up with food and beverage service manager , and vascular for possible angioplasty (2) Diabetes mellitus Assessment & Plan: poorly controlled with complication continue tight glycemic control to keep blood glucose between 100-140 (3) Sepsis Assessment & Plan: due to the above, continue wide spectrum antibiotics pending blood culture (4) Osteomyelitis of left foot Assessment & Plan: continue wide spectrum antibiotics pending cultures and pathology from OR Subjective Constitutional: Reports: fatigue HEENT: Reports: no symptoms Respiratory: Reports: no symptoms Breasts: Reports: no symptoms Cardiovascular: Reports: no symptoms Gastrointestinal/Abdominal: Reports: no symptoms Genitourinary: Reports: no symptoms Neurologic: Reports: weakness Psychiatric: Reports: anxiety Skin: Reports: ulcer Endocrine: Reports: no symptoms Hematologic: Reports: no symptoms Musculoskeletal: Reports: pain, swelling Allergies: Coded Allergies: NO KNOWN ALLERGIES (Verified Allergy, Unknown, 12/04/17) Subjective He had amputation of left 2nd toe with met head, Incision and drainage deep to fascia left foot, and excisional debridement to level of bone left foot by food and beverage service manager today, tolerated procedure well , no pain, no fever or chills . Objective Vital Signs Last 24 Hour Vital Signs Date Time Temp Pulse Resp B/P (MAP) Pulse Ox O2 Delivery O2 Flow Rate FiO2 03/17/19 11:50 98.4 89 15 150/81 100 Room Air 03/17/19 11:40 88 21 143/86 100 Room Air 03/17/19 11:30 89 19 153/92 100 Simple Mask 6 03/17/19 11:15 91 12 136/82 100 Simple Mask 6 03/17/19 11:05 96 12 124/80 100 Simple Mask 6 03/17/19 11:00 96 12 125/75 100 Simple Mask 6 03/17/19 10:56 97.4 92 12 120/74 100 Simple Mask 6 03/17/19 10:51 91 18 96 03/17/19 10:50 93 16 100 03/17/19 08:00 97.8 104 18 179/108 (131) 98 03/17/19 07:59 Room Air 03/17/19 04:00 97.7 90 16 157/87 (110) 100 03/17/19 00:00 97.7 99 16 155/75 (101) 100 03/16/19 21:00 Room Air 03/16/19 20:00 97.7 98 18 156/88 (110) 100 03/16/19 16:00 98.7 74 18 130/73 (92) 100 Height (Feet): 6 Height (Inches): 0.00 Weight (Pounds): 154 General Appearance: WD/WN, no acute distress HEENT: normocephalic, atraumatic, anicteric, mucous membranes moist, PERRL Respiratory/Chest: chest wall non-tender, lungs clear, normal breath sounds, no respiratory distress, no accessory muscle use Cardiovascular: normal peripheral pulses, normal rate, regular rhythm, no gallop/murmur, no JVD Abdomen: normal bowel sounds, soft, non tender, no organomegaly, non distended , no mass, no scars Extremities: no cyanosis, no clubbing Skin: no rash, other - left foot surgical wound covered with dressings and bandages Neurologic/Psychiatric: alert, responsive Lymphatic: no neck adenopathy, no groin adenopathy Musculoskeletal: normal muscle bulk, no effusion Microbiology Date/Time Source Procedure Growth Status 03/15/19 21:36 Blood Blood Culture - Preliminary NO GROWTH AFTER 24 HOURS Resulted 03/15/19 21:30 Blood Blood Culture - Preliminary NO GROWTH AFTER 24 HOURS Resulted 03/15/19 21:25 Other(Specify in comment) Gram Stain Pending Resulted 03/15/19 21:25 Wound Culture - Preliminary Gram Negative Bacillus 1 Resulted Laboratory Tests Test 03/17/19 06:15 White Blood Count 18.8 K/UL (4.8-10.8) H Red Blood Count 3.63 M/UL (4.70-6.10) L Hemoglobin 11.2 G/DL (14.2-18.0) L Hematocrit 34.2 % (42.0-52.0) L Mean Corpuscular Volume 94 FL (80-99) Mean Corpuscular Hemoglobin 30.8 PG (27.0-31.0) Mean Corpuscular Hemoglobin Concent 32.7 G/DL (32.0-36.0) Red Cell Distribution Width 15.7 % (11.6-14.8) H Platelet Count 336 K/UL (150-450) Mean Platelet Volume 7.6 FL (6.5-10.1) Neutrophils (%) (Auto) % (45.0-75.0) Lymphocytes (%) (Auto) % (20.0-45.0) Monocytes (%) (Auto) % (1.0-10.0) Eosinophils (%) (Auto) % (0.0-3.0) Basophils (%) (Auto) % (0.0-2.0) Differential Total Cells Counted 100 Neutrophils % (Manual) 96 % (45-75) H Lymphocytes % (Manual) 2 % (20-45) L Monocytes % (Manual) 2 % (1-10) Eosinophils % (Manual) 0 % (0-3) Basophils % (Manual) 0 % (0-2) Band Neutrophils 0 % (0-8) Platelet Estimate Adequate Platelet Morphology Normal Anisocytosis 1+ Sodium Level 129 MMOL/L (136-145) L Potassium Level 3.5 MMOL/L (3.5-5.1) Chloride Level 91 MMOL/L (98-107) L Carbon Dioxide Level 27 MMOL/L (21-32) Anion Gap 11 mmol/L (5-15) Blood Urea Nitrogen 40 mg/dL (7-18) H Creatinine 6.0 MG/DL (0.55-1.30) H Estimat Glomerular Filtration Rate 12.1 mL/min (>60) Glucose Level 399 MG/DL (74-106) H Calcium Level 9.1 MG/DL (8.5-10.1) Total Bilirubin 0.6 MG/DL (0.2-1.0) Aspartate Amino Transf (AST/SGOT) < 5 U/L (15-37) L Alanine Aminotransferase (ALT/SGPT) < 6 U/L (12-78) L Alkaline Phosphatase 164 U/L (46-116) H Total Protein 7.8 G/DL (6.4-8.2) Albumin 2.0 G/DL (3.4-5.0) L Globulin 5.8 g/dL Albumin/Globulin Ratio 0.3 (1.0-2.7) L Random Vancomycin Level 13.8 ug/mL Current Medications Medications (Trade) Dose Ordered Sig/Felix Route PRN Reason Start Time Stop Time Status Last Admin Dose Admin Acetaminophen (Tylenol) 650 mg Q4H PRN ORAL Mild Pain/Temp > 100.5 03/16/19 06:30 04/15/19 06:29 Acetaminophen/ Hydrocodone Bitart ([place] 5/325) 1 tab Q1H PRN ORAL Mild Pain (Pain Scale 1-3) 03/17/19 10:15 03/17/19 16:00 Acetaminophen/ Hydrocodone Bitart ([place] 5/325) 1 tab Q4H PRN ORAL Moderate Pain (Pain Scale 4-6) 03/16/19 06:30 03/23/19 06:29 03/17/19 02:28 Acetaminophen/ Hydrocodone Bitart ([place] 7.5/325) 1 tab Q1H PRN ORAL Moderate Pain (Pain Scale 4-6) 03/17/19 10:15 03/17/19 16:00 Al Hydroxide/Mg Hydroxide (Mylanta) 15 ml Q1H PRN ORAL gi upset 03/17/19 10:15 03/17/19 16:00 Atropine Sulfate (Atropine 0.4mg/ ml) 0.5 mg Q5M PRN IVP HR<40 03/17/19 10:15 03/17/19 16:00 Clindamycin HCl/ Dextrose 50 ml @ 100 mls/hr Q8H IV 03/16/19 16:00 03/23/19 15:59 03/17/19 08:31 Dextrose (Dextrose 50%) 25 ml Q30M PRN IV Hypoglycemia 03/16/19 13:00 04/15/19 12:59 Dextrose (Dextrose 50%) 50 ml Q30M PRN IV Hypoglycemia 03/16/19 13:00 04/15/19 12:59 Diphenhydramine HCl (Benadryl) 25 mg Q15M PRN IVP Itching 03/17/19 10:15 03/17/19 16:00 Enoxaparin Sodium (Lovenox) 30 mg Q24H SUBQ 03/16/19 09:00 04/15/19 08:59 03/16/19 08:40 Fentanyl Citrate (Sublimaze 100 mcg/2 mL) 25 mcg Q10M PRN IV Moderate Pain (Pain Scale 4-6) 03/17/19 10:15 03/17/19 16:00 Hydralazine HCl (Apresoline) 5 mg Q30M PRN IV SBP>160 / DBP>90 03/17/19 10:15 03/17/19 16:00 Hydromorphone HCl (Dilaudid) 0.5 mg Q15M PRN IVP Severe Pain (Pain Scale 7-10) 03/17/19 10:15 03/17/19 16:00 Insulin Aspart (NovoLOG) BEFORE MEALS AND HS SUBQ 03/16/19 06:30 04/15/19 06:29 03/16/19 16:35 Insulin Aspart (NovoLOG) 8 units NOVOTIAC SUBQ 03/17/19 06:30 04/15/19 16:49 Insulin Detemir (Levemir) 24 units Q24H SUBQ 03/17/19 09:00 04/16/19 08:59 03/17/19 09:15 Labetalol HCl (Normodyne) 5 mg Q10M PRN IV SBP>160 / DBP>90 03/17/19 10:15 03/17/19 16:00 Lactated Ringer's 1,000 ml @ 10 mls/hr Q24H IVLG 03/17/19 10:01 03/17/19 16:00 Lorazepam (Ativan 2mg/ml 1ml) 1 mg Q15M PRN IV For Anxiety 03/17/19 10:15 03/17/19 16:00 Meperidine HCl (Demerol) 25 mg Q5M PRN IVP Shivering.May repeat x 1 03/17/19 10:15 03/17/19 16:00 Metoclopramide HCl (Reglan) 10 mg Q1H PRN IVP Nausea & Vomiting 03/17/19 10:15 03/17/19 16:00 Midazolam HCl (Versed 2mg/2ml vial) 1 mg Q15M PRN IVP For Anxiety 03/17/19 10:15 03/17/19 16:00 Ondansetron HCl (Zofran) 4 mg Q1H PRN IVP Nausea & Vomiting 03/17/19 10:15 03/17/19 16:00 Oxycodone/ Acetaminophen (Percocet 5-325) 1 tab Q1H PRN ORAL Severe Pain (Pain Scale 7-10) 03/17/19 10:15 03/17/19 16:00 Pantoprazole (Protonix) 40 mg DAILY ORAL 03/16/19 09:00 04/15/19 08:59 03/16/19 08:33 Piperacillin Sod/ Tazobactam Sod 3.375 gm/Sodium Chloride 110 ml @ 27.5 mls/hr Q12H IVPB 03/17/19 16:00 03/24/19 15:59 Vancomycin HCl (Vanco rx to dose) 1 ea DAILY PRN MISC Per rx protocol 03/16/19 06:30 04/15/19 06:29 Vancomycin HCl 1 gm/Dextrose 275 ml @ 183.708 mls/hr ONCE IVPB 03/17/19 22:00 03/22/19 21:59 Cira Ceja M.D. Mar 17, 2019 14:26
--- NOTE | 2019-03-17 14:46 | General Progress Note ---
Progress Note Progress Note [id number] full note dictated Tessa Schwartz MD Mar 17, 2019 14:46
--- NOTE | 2019-03-17 17:57 | NUR ---
NURSE NOTES: Reported Dr. Toussaint regarding his sugar level 412 mg/dl
--- NOTE | 2019-03-17 19:33 | NUR ---
HAND-OFF: Report given to MARLENY Villafana. reported sugar level to Facundo,order was received.
--- NOTE | 2019-03-17 19:38 | NUR ---
NURSE NOTES: Patient in bed, awake and alert x4. On room air with no distress or SOB. No c/o pain at this time. Dressing on L foot dry and intact. IV intact and patent. Right arm hemodialysis shunt noted. Bed locked and in lowest position. Will continue to monitor the patient.
[2019-03-17] MEDS ORDERED: NovoLOG Insulin Flexpen SUBQ SCH (20:00)
--- NOTE | 2019-03-17 20:45 | NUR ---
NURSE NOTES: Blood glucose noted to be 522. Dr. Godinez previously notified. New orders carried out. Will monitor the patient closely.
[2019-03-17] MEDS: Vancomycin 1gm in D5W 275ml IVPB SCH (21:43)
--- NOTE | 2019-03-17 22:58 | Cardiology Progress Note ---
Assessment/Plan Assessment/Plan 1. HTN crisis, will resume amlodipine and losartan, clonidine PRN for breakthrough HTN. 2D echo reveals normal LV systolic function with LVEF at 65%. 2. Left foot gas gangrene, s/p amputation. 3. Hx of PVD, s/p right TMT amputation. Continue ASA and statins. 4. ESRD 5. Sepsis due to infected 2nd toe. 6. Uncontrolled DM, increase atorvastatin to 40mg qhs. Continue ASA. Subjective Subjective No cardiac events. s/p left toe amputation, POD # 0 Objective Last 24 Hour Vital Signs Date Time Temp Pulse Resp B/P (MAP) Pulse Ox O2 Delivery O2 Flow Rate FiO2 03/17/19 21:00 Room Air 03/17/19 20:00 98.9 107 16 177/96 (123) 100 03/17/19 17:04 204/78 03/17/19 16:00 99.0 16 214/98 (136) 100 03/17/19 11:50 98.4 89 15 150/81 100 Room Air 03/17/19 11:40 88 21 143/86 100 Room Air 03/17/19 11:30 89 19 153/92 100 Simple Mask 6 03/17/19 11:15 91 12 136/82 100 Simple Mask 6 03/17/19 11:05 96 12 124/80 100 Simple Mask 6 03/17/19 11:00 96 12 125/75 100 Simple Mask 6 03/17/19 10:56 97.4 92 12 120/74 100 Simple Mask 6 03/17/19 10:51 91 18 96 03/17/19 10:50 93 16 100 03/17/19 08:00 97.8 104 18 179/108 (131) 98 03/17/19 07:59 Room Air 03/17/19 04:00 97.7 90 16 157/87 (110) 100 03/17/19 00:00 97.7 99 16 155/75 (101) 100 Intake and Output 03/16/19 03/17/19 19:00 07:00 Intake Total 220.0 ml Output Total 0 ml Balance 220.0 ml Intake Oral 60 ml IV Total 160.0 ml Output Urine Total 0 ml # Bowel Movements 2 2D Echo: LVEF 65%, Mild LVH, RVSP 15 mmHg Laboratory Tests Test 03/17/19 06:15 White Blood Count 18.8 K/UL (4.8-10.8) H Red Blood Count 3.63 M/UL (4.70-6.10) L Hemoglobin 11.2 G/DL (14.2-18.0) L Hematocrit 34.2 % (42.0-52.0) L Mean Corpuscular Volume 94 FL (80-99) Mean Corpuscular Hemoglobin 30.8 PG (27.0-31.0) Mean Corpuscular Hemoglobin Concent 32.7 G/DL (32.0-36.0) Red Cell Distribution Width 15.7 % (11.6-14.8) H Platelet Count 336 K/UL (150-450) Mean Platelet Volume 7.6 FL (6.5-10.1) Neutrophils (%) (Auto) % (45.0-75.0) Lymphocytes (%) (Auto) % (20.0-45.0) Monocytes (%) (Auto) % (1.0-10.0) Eosinophils (%) (Auto) % (0.0-3.0) Basophils (%) (Auto) % (0.0-2.0) Differential Total Cells Counted 100 Neutrophils % (Manual) 96 % (45-75) H Lymphocytes % (Manual) 2 % (20-45) L Monocytes % (Manual) 2 % (1-10) Eosinophils % (Manual) 0 % (0-3) Basophils % (Manual) 0 % (0-2) Band Neutrophils 0 % (0-8) Platelet Estimate Adequate Platelet Morphology Normal Anisocytosis 1+ Sodium Level 129 MMOL/L (136-145) L Potassium Level 3.5 MMOL/L (3.5-5.1) Chloride Level 91 MMOL/L (98-107) L Carbon Dioxide Level 27 MMOL/L (21-32) Anion Gap 11 mmol/L (5-15) Blood Urea Nitrogen 40 mg/dL (7-18) H Creatinine 6.0 MG/DL (0.55-1.30) H Estimat Glomerular Filtration Rate 12.1 mL/min (>60) Glucose Level 399 MG/DL (74-106) H Calcium Level 9.1 MG/DL (8.5-10.1) Total Bilirubin 0.6 MG/DL (0.2-1.0) Aspartate Amino Transf (AST/SGOT) < 5 U/L (15-37) L Alanine Aminotransferase (ALT/SGPT) < 6 U/L (12-78) L Alkaline Phosphatase 164 U/L (46-116) H Total Protein 7.8 G/DL (6.4-8.2) Albumin 2.0 G/DL (3.4-5.0) L Globulin 5.8 g/dL Albumin/Globulin Ratio 0.3 (1.0-2.7) L Random Vancomycin Level 13.8 ug/mL Microbiology Date/Time Source Procedure Growth Status 03/15/19 21:36 Blood Blood Culture - Preliminary NO GROWTH AFTER 24 HOURS Resulted 03/15/19 21:30 Blood Blood Culture - Preliminary NO GROWTH AFTER 24 HOURS Resulted 03/15/19 21:25 Other(Specify in comment) Gram Stain - Final Resulted 03/15/19 21:25 Wound Culture - Preliminary Gram Negative Bacillus 1 Resulted Objective HEENT: normocephalic, atraumatic, PERRL, bilateral eye EOMI Neck: JVP <5 cm, no carotid bruit. Respiratory: normal breath sounds Cardiovascular: regular rate and rhythm, no murmurs, gallops or rubs. Gastrointestinal: normal bowel sounds, non tender, no mass, no organomegaly, no bruit, non-distended Musculoskeletal: No edema, clubbing or cyanosis, Right foot with transmetatarsal amputation. Left foot: Second toe amputated. Extended to the sole of the foot. Unable to palpate a pulse. Lizandro Falcon MD Mar 17, 2019 22:58
[2019-03-18] VITALS (7 sets, daily range): BP systolic 115–163; BP diastolic 73–100
[2019-03-18] MEDS: Clindamycin 900mg 50 ML IV SCH ×2 (00:15→09:03)
[2019-03-18] MEDS: Piperacillin/Tazobactam 3.375 GM in NS 110 ML IVPB SCH (03:04)
[2019-03-18] MEDS: NovoLOG Insulin Flexpen SUBQ SCH ×7 (06:01→21:18)
[2019-03-18] MEDS ORDERED: NovoLOG Insulin Flexpen SUBQ ONE (06:30)
--- NOTE | 2019-03-18 07:26 | NUR ---
HAND-OFF: Report given to MARLENY Jo.
--- NOTE | 2019-03-18 07:43 | NUR ---
NURSE NOTES: Patient awake, alert x4; on room air, no sing of distress and shortness of breath; no sing of chest pain; Left For-Arm 22G Zosyn running; Hemodialysis access on Right Upper Arm AV shunt; dressing dry and intact on Left-Foot; side rails up x2, breaks engaged, bed at lowest position, call light within reach; will keep monitoring.
[2019-03-18 08:06] LABS: HEMATOCRIT 32.1 % (42.0-52.0); HEMOGLOBIN 10.2 G/DL (14.2-18.0); MEAN CORPUSCULAR VOLUME 96 FL (80-99); PLATELET COUNT 336 K/UL (150-450); RED BLOOD COUNT 3.33 M/UL (4.70-6.10); RED CELL DISTRIBUTION WIDTH 15.6 % (11.6-14.8)
[2019-03-18 08:16] LABS: WHITE BLOOD COUNT 24.3 K/UL (4.8-10.8)
[2019-03-18 08:27] LABS: ALANINE AMINOTRANSFERASE 7 U/L (12-78); ALBUMIN 1.8 G/DL (3.4-5.0); ALBUMIN/GLOBULIN RATIO 0.3 (1.0-2.7); ALKALINE PHOSPHATASE 128 U/L (46-116); ANION GAP 10 mmol/L (5-15); ASPARTATE AMINO TRANSFERASE 5 U/L (15-37); BILIRUBIN,TOTAL 0.5 MG/DL (0.2-1.0); BLOOD UREA NITROGEN 47 mg/dL (7-18); CALCIUM 9.4 MG/DL (8.5-10.1); CARBON DIOXIDE 29 MMOL/L (21-32); CHLORIDE 93 MMOL/L (98-107); CREATININE 6.8 MG/DL (0.55-1.30); POTASSIUM 3.4 MMOL/L (3.5-5.1); SODIUM 132 MMOL/L (136-145)
[2019-03-18] MEDS: Levemir Flexpen SUBQ SCH (09:05)
[2019-03-18] MEDS: Enoxaparin 30mg Inj SUBQ SCH (09:06)
--- NOTE | 2019-03-18 09:40 | NUR ---
NURSE NOTES: Received a call from lab regarding patient's WBC 24.3; I notified MD Ceja, order received and carried out as order given; I left a message to MD Toussaint to report patient's WBC 24.3, waiting for order.
--- NOTE | 2019-03-18 11:22 | Nephrology Progress Note ---
Assessment/Plan Assessment 1.ESRD 2.ASHLEY 3.DM 4.HTN 5.PVD 6.Left foot DF Plan 1.dialysis as schedule 2.check phos 3.low k diet 4.continue epogen Subjective Constitutional: Reports: malaise HEENT: Reports: no symptoms Genitourinary: Reports: no symptoms Neurologic/Psychiatric: Reports: no symptoms Subjective s/p hemodialysis yesterday alert and awake feeling ok Objective Objective Last 24 Hour Vital Signs Date Time Temp Pulse Resp B/P (MAP) Pulse Ox O2 Delivery O2 Flow Rate FiO2 03/18/19 09:00 Room Air 03/18/19 08:00 98.0 99 19 142/100 (114) 99 03/18/19 03:52 98.6 92 16 146/73 (97) 98 03/18/19 00:00 98.1 96 16 129/73 (91) 99 03/17/19 21:00 Room Air 03/17/19 20:00 98.9 107 16 177/96 (123) 100 03/17/19 17:04 204/78 03/17/19 16:00 99.0 16 214/98 (136) 100 03/17/19 11:50 98.4 89 15 150/81 100 Room Air 03/17/19 11:40 88 21 143/86 100 Room Air 03/17/19 11:30 89 19 153/92 100 Simple Mask 6 03/17/19 11:15 91 12 136/82 100 Simple Mask 6 Intake and Output 03/17/19 03/18/19 18:59 06:59 Intake Total 640 ml 500 ml Output Total 25 ml Balance 615 ml 500 ml Intake Oral 240 ml 500 ml IV Total 400 ml Estimated Blood Loss 25 ml Laboratory Tests 03/18/19 07:30: White Blood Count 24.3*H, Red Blood Count 3.33L, Hemoglobin 10.2L, Hematocrit 32.1L, Mean Corpuscular Volume 96, Mean Corpuscular Hemoglobin 30.5, Mean Corpuscular Hemoglobin Concent 31.6L, Red Cell Distribution Width 15.6H, Platelet Count 336, Mean Platelet Volume 7.1, Neutrophils (%) (Auto) , Lymphocytes (%) (Auto) , Monocytes (%) (Auto) , Eosinophils (%) (Auto) , Basophils (%) (Auto) , Differential Total Cells Counted 100, Neutrophils % ( Manual) 84H, Lymphocytes % (Manual) 6L, Monocytes % (Manual) 10, Eosinophils % ( Manual) 0, Basophils % (Manual) 0, Band Neutrophils 0, Platelet Estimate Adequate, Platelet Morphology Normal, Hypochromasia 1+, Sodium Level 132L, Potassium Level 3.4L, Chloride Level 93L, Carbon Dioxide Level 29, Anion Gap 10 , Blood Urea Nitrogen 47H, Creatinine 6.8H, Estimat Glomerular Filtration Rate 10.4, Glucose Level 230#H, Calcium Level 9.4, Total Bilirubin 0.5, Aspartate Amino Transf (AST/SGOT) 5L, Alanine Aminotransferase (ALT/SGPT) 7L, Alkaline Phosphatase 128H, Total Protein 7.3, Albumin 1.8L, Globulin 5.5, Albumin/ Globulin Ratio 0.3L, Hepatitis A IgM Antibody [Pending], Hepatitis B Surface Antigen [Pending], Hepatitis B Core IgM Antibody [Pending], Hepatitis C Antibody [Pending], HIV (1&2) Antibody Rapid Negative Height (Feet): 6 Height (Inches): 0.00 Weight (Pounds): 154 Objective Head: normocephalic, atraumatic Eyes: bilateral eye PERRL, bilateral eye EOMI Neck: full range of motion, supple, no meningismus Respiratory: chest non-tender, lungs clear, normal breath sounds Cardiovascular #1: regular rate, rhythm, no murmur Gastrointestinal: normal bowel sounds, non tender, no mass, no organomegaly, no bruit, non-distended Musculoskeletal: back normal, normal range of motion, gait/station normal, other - Right foot with transmetatarsal amputation. Left foot: His second toe show wet gangrene. Extended to the sole of the foot. Unable to palpate a pulse. Psychiatric: mood/affect normal Tessa Schwartz MD Mar 18, 2019 11:22
[2019-03-18] MEDS ORDERED: Meropenem 1 GM in NS 55 ML IVPB SCH (12:00)
--- NOTE | 2019-03-18 13:15 | General Progress Note ---
Assessment/Plan Problem List: (1) ESRD (end stage renal disease) on dialysis ICD Codes: N18.6 - End stage renal disease; Z99.2 - Dependence on renal dialysis SNOMED: 631846347, 20690894 (2) HTN (hypertension) ICD Codes: I10 - Essential (primary) hypertension SNOMED: 74096554 Qualifiers: Qualified Codes: I10 - Essential (primary) hypertension (3) Hyperglycemia due to type 1 diabetes mellitus ICD Codes: E10.65 - Type 1 diabetes mellitus with hyperglycemia SNOMED: 741088740457025, 43175006 (4) Gangrene of toe of left foot ICD Codes: I96 - Gangrene, not elsewhere classified; Z99.2 - Dependence on renal dialysis SNOMED: 04184301599746751, 83901446 (5) Osteomyelitis of left foot ICD Codes: M86.9 - Osteomyelitis, unspecified SNOMED: 2655353649437227 Assessment/Plan: add Levemir 6 units qhs continue Levemir 24 units qam continue Novolog 8 units ac tid continue NISS ac / hs Subjective Allergies: Coded Allergies: NO KNOWN ALLERGIES (Verified Allergy, Unknown, 12/04/17) All Systems: reviewed and negative except above Subjective events noted glucose values improving fasting glucose still elevated Item Value Date Time Bedside Blood Glucose 151 mg/dl H 03/18/19 1156 Bedside Blood Glucose 272 mg/dl H 03/18/19 0905 Bedside Blood Glucose 272 mg/dl H 03/18/19 0602 Bedside Blood Glucose 522 mg/dl H 03/17/19 2048 Bedside Blood Glucose 412 mg/dl H 03/17/19 1707 Objective Last 24 Hour Vital Signs Date Time Temp Pulse Resp B/P (MAP) Pulse Ox O2 Delivery O2 Flow Rate FiO2 03/18/19 12:00 97.5 105 19 115/81 (92) 95 03/18/19 09:00 Room Air 03/18/19 08:00 98.0 99 19 142/100 (114) 99 03/18/19 03:52 98.6 92 16 146/73 (97) 98 03/18/19 00:00 98.1 96 16 129/73 (91) 99 03/17/19 21:00 Room Air 03/17/19 20:00 98.9 107 16 177/96 (123) 100 03/17/19 17:04 204/78 1/4/20 16:00 99.0 16 214/98 (136) 100 Intake and Output 03/17/19 03/18/19 19:00 07:00 Intake Total 640 ml 500 ml Output Total 25 ml Balance 615 ml 500 ml Intake Oral 240 ml 500 ml IV Total 400 ml Estimated Blood Loss 25 ml Laboratory Tests 03/18/19 07:30: White Blood Count 24.3*H, Red Blood Count 3.33L, Hemoglobin 10.2L, Hematocrit 32.1L, Mean Corpuscular Volume 96, Mean Corpuscular Hemoglobin 30.5, Mean Corpuscular Hemoglobin Concent 31.6L, Red Cell Distribution Width 15.6H, Platelet Count 336, Mean Platelet Volume 7.1, Neutrophils (%) (Auto) , Lymphocytes (%) (Auto) , Monocytes (%) (Auto) , Eosinophils (%) (Auto) , Basophils (%) (Auto) , Differential Total Cells Counted 100, Neutrophils % ( Manual) 84H, Lymphocytes % (Manual) 6L, Monocytes % (Manual) 10, Eosinophils % ( Manual) 0, Basophils % (Manual) 0, Band Neutrophils 0, Platelet Estimate Adequate, Platelet Morphology Normal, Hypochromasia 1+, Sodium Level 132L, Potassium Level 3.4L, Chloride Level 93L, Carbon Dioxide Level 29, Anion Gap 10 , Blood Urea Nitrogen 47H, Creatinine 6.8H, Estimat Glomerular Filtration Rate 10.4, Glucose Level 230#H, Calcium Level 9.4, Total Bilirubin 0.5, Aspartate Amino Transf (AST/SGOT) 5L, Alanine Aminotransferase (ALT/SGPT) 7L, Alkaline Phosphatase 128H, Total Protein 7.3, Albumin 1.8L, Globulin 5.5, Albumin/ Globulin Ratio 0.3L, Hepatitis A IgM Antibody [Pending], Hepatitis B Surface Antigen [Pending], Hepatitis B Core IgM Antibody [Pending], Hepatitis C Antibody [Pending], HIV (1&2) Antibody Rapid Negative Height (Feet): 6 Height (Inches): 0.00 Weight (Pounds): 154 General Appearance: no apparent distress Neck: normal alignment Cardiovascular: normal rate Respiratory/Chest: lungs clear Abdomen: normal bowel sounds Objective Current Medications Medications (Trade) Dose Ordered Sig/Felix Route PRN Reason Start Time Stop Time Status Last Admin Dose Admin Acetaminophen (Tylenol) 650 mg Q4H PRN ORAL Mild Pain/Temp > 100.5 03/16/19 06:30 04/15/19 06:29 Acetaminophen/ Hydrocodone Bitart ([place] 5/325) 1 tab Q4H PRN ORAL Moderate Pain (Pain Scale 4-6) 03/16/19 06:30 03/23/19 06:29 03/17/19 02:28 Clonidine HCl (Catapres Tab) 0.1 mg Q8H PRN ORAL SBP>160 03/17/19 16:45 04/16/19 16:44 03/17/19 17:04 Dextrose (Dextrose 50%) 25 ml Q30M PRN IV Hypoglycemia 03/16/19 13:00 04/15/19 12:59 Dextrose (Dextrose 50%) 50 ml Q30M PRN IV Hypoglycemia 03/16/19 13:00 04/15/19 12:59 Enoxaparin Sodium (Lovenox) 30 mg Q24H SUBQ 03/16/19 09:00 04/15/19 08:59 03/18/19 09:06 Insulin Aspart (NovoLOG) BEFORE MEALS AND HS SUBQ 03/16/19 06:30 04/15/19 06:29 03/18/19 11:56 Insulin Aspart (NovoLOG) 8 units NOVOTIAC SUBQ 03/17/19 06:30 04/15/19 16:49 03/18/19 11:56 Insulin Detemir (Levemir) 24 units Q24H SUBQ 03/17/19 09:00 04/16/19 08:59 03/18/19 09:05 Meropenem 1 gm/ Sodium Chloride 55 ml @ 110 mls/hr Q12H IVPB 03/18/19 12:00 03/23/19 11:59 03/18/19 11:55 Pantoprazole (Protonix) 40 mg DAILY ORAL 03/16/19 09:00 04/15/19 08:59 03/18/19 09:04 Vancomycin HCl (Vanco rx to dose) 1 ea DAILY PRN MISC Per rx protocol 03/16/19 06:30 04/15/19 06:29 Vancomycin HCl 1 gm/Dextrose 275 ml @ 183.708 mls/hr ONCE IVPB 03/17/19 22:00 03/22/19 21:59 03/17/19 21:43 Ferny Godinez MD Mar 18, 2019 13:15
--- NOTE | 2019-03-18 14:48 | Cardiology Progress Note ---
Assessment/Plan Assessment/Plan 1. HTN crisis, continue resume amlodipine and losartan, clonidine PRN for breakthrough HTN. 2D echo reveals normal LV systolic function with LVEF at 65%. 2. Left foot gas gangrene, s/p amputation. 3. Hx of PVD, s/p right TMT amputation. Continue ASA and statins. 4. ESRD 5. Sepsis due to infected 2nd toe. 6. Uncontrolled DM, continue [id number] and ASA. Subjective Subjective No cardiac events reported. s/p left toe amputation, POD # 1 Objective Last 24 Hour Vital Signs Date Time Temp Pulse Resp B/P (MAP) Pulse Ox O2 Delivery O2 Flow Rate FiO2 03/18/19 12:00 97.5 105 19 115/81 (92) 95 03/18/19 09:00 Room Air 03/18/19 08:00 98.0 99 19 142/100 (114) 99 03/18/19 03:52 98.6 92 16 146/73 (97) 98 03/18/19 00:00 98.1 96 16 129/73 (91) 99 03/17/19 21:00 Room Air 03/17/19 20:00 98.9 107 16 177/96 (123) 100 03/17/19 17:04 204/78 03/17/19 16:00 99.0 16 214/98 (136) 100 Intake and Output 03/17/19 03/18/19 19:00 07:00 Intake Total 640 ml 500 ml Output Total 25 ml Balance 615 ml 500 ml Intake Oral 240 ml 500 ml IV Total 400 ml Estimated Blood Loss 25 ml Laboratory Tests Test 03/18/19 07:30 White Blood Count 24.3 K/UL (4.8-10.8) *H Red Blood Count 3.33 M/UL (4.70-6.10) L Hemoglobin 10.2 G/DL (14.2-18.0) L Hematocrit 32.1 % (42.0-52.0) L Mean Corpuscular Volume 96 FL (80-99) Mean Corpuscular Hemoglobin 30.5 PG (27.0-31.0) Mean Corpuscular Hemoglobin Concent 31.6 G/DL (32.0-36.0) L Red Cell Distribution Width 15.6 % (11.6-14.8) H Platelet Count 336 K/UL (150-450) Mean Platelet Volume 7.1 FL (6.5-10.1) Neutrophils (%) (Auto) % (45.0-75.0) Lymphocytes (%) (Auto) % (20.0-45.0) Monocytes (%) (Auto) % (1.0-10.0) Eosinophils (%) (Auto) % (0.0-3.0) Basophils (%) (Auto) % (0.0-2.0) Differential Total Cells Counted 100 Neutrophils % (Manual) 84 % (45-75) H Lymphocytes % (Manual) 6 % (20-45) L Monocytes % (Manual) 10 % (1-10) Eosinophils % (Manual) 0 % (0-3) Basophils % (Manual) 0 % (0-2) Band Neutrophils 0 % (0-8) Platelet Estimate Adequate Platelet Morphology Normal Hypochromasia 1+ Sodium Level 132 MMOL/L (136-145) L Potassium Level 3.4 MMOL/L (3.5-5.1) L Chloride Level 93 MMOL/L (98-107) L Carbon Dioxide Level 29 MMOL/L (21-32) Anion Gap 10 mmol/L (5-15) Blood Urea Nitrogen 47 mg/dL (7-18) H Creatinine 6.8 MG/DL (0.55-1.30) H Estimat Glomerular Filtration Rate 10.4 mL/min (>60) Glucose Level 230 MG/DL (74-106) #H Calcium Level 9.4 MG/DL (8.5-10.1) Total Bilirubin 0.5 MG/DL (0.2-1.0) Aspartate Amino Transf (AST/SGOT) 5 U/L (15-37) L Alanine Aminotransferase (ALT/SGPT) 7 U/L (12-78) L Alkaline Phosphatase 128 U/L (46-116) H Total Protein 7.3 G/DL (6.4-8.2) Albumin 1.8 G/DL (3.4-5.0) L Globulin 5.5 g/dL Albumin/Globulin Ratio 0.3 (1.0-2.7) L Hepatitis A IgM Antibody Pending Hepatitis B Surface Antigen Pending Hepatitis B Core IgM Antibody Pending Hepatitis C Antibody Pending HIV (1&2) Antibody Rapid Negative (NEGATIVE) Microbiology Date/Time Source Procedure Growth Status 03/15/19 21:36 Blood Blood Culture - Preliminary NO GROWTH AFTER 48 HOURS Resulted 03/15/19 21:30 Blood Blood Culture - Preliminary NO GROWTH AFTER 48 HOURS Resulted 03/15/19 21:25 Other(Specify in comment) Gram Stain - Final Resulted 03/15/19 21:25 Wound Culture - Preliminary Citrobacter Diversus Resulted 03/16/19 01:30 Nasal Nares MRSA Culture - Final NO METHICILLIN RESISTANT STAPH AUREUS... Complete 03/17/19 10:20 Foot Left Gram Stain - Final Resulted 03/17/19 10:20 Aerobic Culture - Preliminary Gram Negative Bacillus 1 Resulted 03/17/19 10:20 Foot Left Anaerobic Culture Pending Resulted 03/16/19 01:30 Rectum - Final NO CARBAPENEM-RESISTANT ENTEROBACTERI... Complete 03/16/19 01:30 Rectum VRE Culture - Final NO VANCOMYCIN RESISTANT ENTEROCOCCUS ... Complete Objective HEENT: normocephalic, atraumatic, PERRL, bilateral eye EOMI Neck: JVP <5 cm, no carotid bruit. Respiratory: normal breath sounds Cardiovascular: regular rate and rhythm, no murmurs, gallops or rubs. Gastrointestinal: normal bowel sounds, non tender, no mass, no organomegaly, no bruit, non-distended Musculoskeletal: No edema, clubbing or cyanosis, Right foot with transmetatarsal amputation. Left foot: Second toe amputated. Extended to the sole of the foot. Unable to palpate a pulse. Lizandro Falcon MD Mar 18, 2019 14:48
[2019-03-18] MEDS: Losartan 50mg tab ORAL SCH (15:17)
[2019-03-18] MEDS: Aspirin EC 81mg tab ORAL SCH (15:17)
--- NOTE | 2019-03-18 16:11 | General Progress Note ---
Assessment/Plan Assessment/Plan: S: I am feeling better O: Denies pain . . General Appearance: no apparent distress, alert, thin Head: normocephalic, atraumatic Eyes: bilateral eye PERRL, bilateral eye EOMI ENT: hearing grossly normal, normal pharynx Neck: full range of motion, supple, no meningismus Respiratory: chest non-tender, lungs clear, normal breath sounds Cardiovascular #1: regular rate, rhythm, no murmur Gastrointestinal: normal bowel sounds, non tender, no mass, no organomegaly, no bruit, non-distended Musculoskeletal: back normal, normal range of motion, gait/station normal, other - Right foot with transmetatarsal amputation. Left foot: post op changes with appropriate dressing . Unable to palpate a pulse. Psychiatric: mood/affect normal Meds and Labs reviwed today on 03/18/2019 Assessment/Plan: A/P: 1- Sepsis 2- Lt foot OM/ abcess 3- ESRDx HD 4- DM-2 5- HTN 6- Anemia 7- PVD, Plan: Emprical abx Notes from Pod, Vas, Nephro, ENdo, reviewd D/w Nephro Proceed with Prcedure by Podiatry Transfer to [facility] for CC for preop and Vas procedure Subjective Allergies: Coded Allergies: NO KNOWN ALLERGIES (Verified Allergy, Unknown, 12/04/17) Objective Last 24 Hour Vital Signs Date Time Temp Pulse Resp B/P (MAP) Pulse Ox O2 Delivery O2 Flow Rate FiO2 03/18/19 15:18 92 148/73 03/18/19 15:17 148/73 03/18/19 12:00 97.5 105 19 115/81 (92) 95 03/18/19 09:00 Room Air 03/18/19 08:00 98.0 99 19 142/100 (114) 99 03/18/19 03:52 98.6 92 16 146/73 (97) 98 03/18/19 00:00 98.1 96 16 129/73 (91) 99 03/17/19 21:00 Room Air 03/17/19 20:00 98.9 107 16 177/96 (123) 100 03/17/19 17:04 204/78 Intake and Output 03/17/19 03/18/19 19:00 07:00 Intake Total 640 ml 500 ml Output Total 25 ml Balance 615 ml 500 ml Intake Oral 240 ml 500 ml IV Total 400 ml Estimated Blood Loss 25 ml Laboratory Tests 03/18/19 07:30: White Blood Count 24.3*H, Red Blood Count 3.33L, Hemoglobin 10.2L, Hematocrit 32.1L, Mean Corpuscular Volume 96, Mean Corpuscular Hemoglobin 30.5, Mean Corpuscular Hemoglobin Concent 31.6L, Red Cell Distribution Width 15.6H, Platelet Count 336, Mean Platelet Volume 7.1, Neutrophils (%) (Auto) , Lymphocytes (%) (Auto) , Monocytes (%) (Auto) , Eosinophils (%) (Auto) , Basophils (%) (Auto) , Differential Total Cells Counted 100, Neutrophils % ( Manual) 84H, Lymphocytes % (Manual) 6L, Monocytes % (Manual) 10, Eosinophils % ( Manual) 0, Basophils % (Manual) 0, Band Neutrophils 0, Platelet Estimate Adequate, Platelet Morphology Normal, Hypochromasia 1+, Sodium Level 132L, Potassium Level 3.4L, Chloride Level 93L, Carbon Dioxide Level 29, Anion Gap 10 , Blood Urea Nitrogen 47H, Creatinine 6.8H, Estimat Glomerular Filtration Rate 10.4, Glucose Level 230#H, Calcium Level 9.4, Total Bilirubin 0.5, Aspartate Amino Transf (AST/SGOT) 5L, Alanine Aminotransferase (ALT/SGPT) 7L, Alkaline Phosphatase 128H, Total Protein 7.3, Albumin 1.8L, Globulin 5.5, Albumin/ Globulin Ratio 0.3L, Hepatitis A IgM Antibody [Pending], Hepatitis B Surface Antigen [Pending], Hepatitis B Core IgM Antibody [Pending], Hepatitis C Antibody [Pending], HIV (1&2) Antibody Rapid Negative Height (Feet): 6 Height (Inches): 0.00 Weight (Pounds): 154 Candida Toussaint MD Mar 18, 2019 16:11
--- NOTE | 2019-03-18 16:31 | NUR ---
NURSE NOTES: Patient's blood sugar dropped to 48, Dextrose 50% given, recheck blood sugar after 15 minutes; MD Godinez and charge nurse Jacinto notified; will keep monitoring.
--- NOTE | 2019-03-18 17:35 | Infectious Diseases Prog Note ---
Assessment/Plan Problems: (1) Gangrene of toe of left foot Assessment & Plan: with gas in the plantar area, suspect deep necrotizing fasciitis, S/P amputation of left 2nd toe with met head, Incision and drainage deep to fascia left foot, and excisional debridement to level of bone left foot , continue vancomycin, switch zosyn to meropenem and stop clindamycin for now , pending culture from OR , his wound draining culture is growing gram negative rods , follow up with soft sugar supervisor , and vascular for possible angioplasty (2) Diabetes mellitus Assessment & Plan: poorly controlled with complication continue tight glycemic control to keep blood glucose between 100-140 (3) Sepsis Assessment & Plan: due to the above, continue wide spectrum antibiotics pending blood culture (4) Osteomyelitis of left foot Assessment & Plan: continue wide spectrum antibiotics pending cultures and pathology from OR Subjective Constitutional: Reports: no symptoms HEENT: Reports: no symptoms Respiratory: Reports: no symptoms Breasts: Reports: no symptoms Cardiovascular: Reports: no symptoms Gastrointestinal/Abdominal: Reports: no symptoms Genitourinary: Reports: no symptoms Neurologic: Reports: no symptoms Psychiatric: Reports: no symptoms Skin: Reports: no symptoms Endocrine: Reports: no symptoms Hematologic: Reports: no symptoms Musculoskeletal: Reports: no symptoms Allergies: Coded Allergies: NO KNOWN ALLERGIES (Verified Allergy, Unknown, 12/04/17) Subjective He had amputation of left 2nd toe with met head, Incision and drainage deep to fascia left foot, and excisional debridement to level of bone left foot by soft sugar supervisor today, tolerated procedure well , no pain, no fever or chills . Objective Vital Signs Last 24 Hour Vital Signs Date Time Temp Pulse Resp B/P (MAP) Pulse Ox O2 Delivery O2 Flow Rate FiO2 03/18/19 16:00 97.5 92 20 148/73 (98) 99 03/18/19 15:18 92 148/73 03/18/19 15:17 148/73 03/18/19 12:00 97.5 105 19 115/81 (92) 95 03/18/19 09:00 Room Air 03/18/19 08:00 98.0 99 19 142/100 (114) 99 03/18/19 03:52 98.6 92 16 146/73 (97) 98 03/18/19 00:00 98.1 96 16 129/73 (91) 99 03/17/19 21:00 Room Air 03/17/19 20:00 98.9 107 16 177/96 (123) 100 Height (Feet): 6 Height (Inches): 0.00 Weight (Pounds): 154 General Appearance: WD/WN, no acute distress HEENT: normocephalic, atraumatic, anicteric, mucous membranes moist, PERRL Respiratory/Chest: chest wall non-tender, lungs clear, normal breath sounds, no respiratory distress, no accessory muscle use Cardiovascular: normal peripheral pulses, normal rate, regular rhythm, regularly irregular, no gallop/murmur, no JVD Abdomen: normal bowel sounds, soft, non tender, no organomegaly, non distended , no mass, no scars Extremities: no cyanosis, no clubbing Skin: no rash, no lesions, other - left foot surgical wound covered with bandage Neurologic/Psychiatric: tag and label cutter II-XII grossly normal, no motor/sensory deficits, abnormal gait, alert, responsive Lymphatic: no neck adenopathy, no groin adenopathy Musculoskeletal: normal muscle bulk, no effusion Microbiology Date/Time Source Procedure Growth Status 03/15/19 21:36 Blood Blood Culture - Preliminary NO GROWTH AFTER 48 HOURS Resulted 03/15/19 21:30 Blood Blood Culture - Preliminary NO GROWTH AFTER 48 HOURS Resulted 03/15/19 21:25 Other(Specify in comment) Gram Stain - Final Resulted 03/15/19 21:25 Wound Culture - Preliminary Citrobacter Diversus Resulted 03/16/19 01:30 Nasal Nares MRSA Culture - Final NO METHICILLIN RESISTANT STAPH AUREUS... Complete 03/17/19 10:20 Foot Left Gram Stain - Final Resulted 03/17/19 10:20 Aerobic Culture - Preliminary Gram Negative Bacillus 1 Resulted 03/17/19 10:20 Foot Left Anaerobic Culture Pending Resulted 03/16/19 01:30 Rectum - Final NO CARBAPENEM-RESISTANT ENTEROBACTERI... Complete 03/16/19 01:30 Rectum VRE Culture - Final NO VANCOMYCIN RESISTANT ENTEROCOCCUS ... Complete Laboratory Tests Test 03/18/19 07:30 White Blood Count 24.3 K/UL (4.8-10.8) *H Red Blood Count 3.33 M/UL (4.70-6.10) L Hemoglobin 10.2 G/DL (14.2-18.0) L Hematocrit 32.1 % (42.0-52.0) L Mean Corpuscular Volume 96 FL (80-99) Mean Corpuscular Hemoglobin 30.5 PG (27.0-31.0) Mean Corpuscular Hemoglobin Concent 31.6 G/DL (32.0-36.0) L Red Cell Distribution Width 15.6 % (11.6-14.8) H Platelet Count 336 K/UL (150-450) Mean Platelet Volume 7.1 FL (6.5-10.1) Neutrophils (%) (Auto) % (45.0-75.0) Lymphocytes (%) (Auto) % (20.0-45.0) Monocytes (%) (Auto) % (1.0-10.0) Eosinophils (%) (Auto) % (0.0-3.0) Basophils (%) (Auto) % (0.0-2.0) Differential Total Cells Counted 100 Neutrophils % (Manual) 84 % (45-75) H Lymphocytes % (Manual) 6 % (20-45) L Monocytes % (Manual) 10 % (1-10) Eosinophils % (Manual) 0 % (0-3) Basophils % (Manual) 0 % (0-2) Band Neutrophils 0 % (0-8) Platelet Estimate Adequate Platelet Morphology Normal Hypochromasia 1+ Sodium Level 132 MMOL/L (136-145) L Potassium Level 3.4 MMOL/L (3.5-5.1) L Chloride Level 93 MMOL/L (98-107) L Carbon Dioxide Level 29 MMOL/L (21-32) Anion Gap 10 mmol/L (5-15) Blood Urea Nitrogen 47 mg/dL (7-18) H Creatinine 6.8 MG/DL (0.55-1.30) H Estimat Glomerular Filtration Rate 10.4 mL/min (>60) Glucose Level 230 MG/DL (74-106) #H Calcium Level 9.4 MG/DL (8.5-10.1) Total Bilirubin 0.5 MG/DL (0.2-1.0) Aspartate Amino Transf (AST/SGOT) 5 U/L (15-37) L Alanine Aminotransferase (ALT/SGPT) 7 U/L (12-78) L Alkaline Phosphatase 128 U/L (46-116) H Total Protein 7.3 G/DL (6.4-8.2) Albumin 1.8 G/DL (3.4-5.0) L Globulin 5.5 g/dL Albumin/Globulin Ratio 0.3 (1.0-2.7) L Hepatitis A IgM Antibody Pending Hepatitis B Surface Antigen Pending Hepatitis B Core IgM Antibody Pending Hepatitis C Antibody Pending HIV (1&2) Antibody Rapid Negative (NEGATIVE) Current Medications Medications (Trade) Dose Ordered Sig/Felix Route PRN Reason Start Time Stop Time Status Last Admin Dose Admin Acetaminophen (Tylenol) 650 mg Q4H PRN ORAL Mild Pain/Temp > 100.5 03/16/19 06:30 04/15/19 06:29 Acetaminophen/ Hydrocodone Bitart (Leighton 5/325) 1 tab Q4H PRN ORAL Moderate Pain (Pain Scale 4-6) 03/16/19 06:30 03/23/19 06:29 03/17/19 02:28 Amlodipine Besylate (Norvasc) 5 mg DAILY ORAL 03/18/19 15:00 04/17/19 14:59 03/18/19 15:18 Aspirin (Ecotrin) 81 mg DAILY ORAL 03/18/19 15:15 04/17/19 15:14 03/18/19 15:17 Atorvastatin Calcium (Lipitor) 40 mg BEDTIME ORAL 03/18/19 21:00 04/17/19 20:59 Clonidine HCl (Catapres Tab) 0.1 mg Q8H PRN ORAL SBP>160 03/17/19 16:45 04/16/19 16:44 03/17/19 17:04 Dextrose (Dextrose 50%) 25 ml Q30M PRN IV Hypoglycemia 03/16/19 13:00 04/15/19 12:59 Dextrose (Dextrose 50%) 50 ml Q30M PRN IV Hypoglycemia 03/16/19 13:00 04/15/19 12:59 03/18/19 15:33 Heparin Sodium (Porcine) (Heparin 5000 units/ml) 5,000 units EVERY 12 HOURS SUBQ 03/18/19 21:00 04/17/19 20:59 Insulin Aspart (NovoLOG) BEFORE MEALS AND HS SUBQ 03/16/19 06:30 04/15/19 06:29 03/18/19 17:22 Insulin Aspart (NovoLOG) 8 units NOVOTIAC SUBQ 03/17/19 06:30 2/2/20 16:49 03/18/19 17:23 Insulin Detemir (Levemir) 6 units BEDTIME SUBQ 03/18/19 21:00 04/17/19 20:59 Insulin Detemir (Levemir) 24 units Q24H SUBQ 03/17/19 09:00 04/16/19 08:59 03/18/19 09:05 Losartan Potassium (Cozaar) 50 mg DAILY ORAL 03/18/19 15:00 04/17/19 14:59 03/18/19 15:17 Meropenem 500 mg/ Sodium Chloride 55 ml @ 110 mls/hr Q24H IVPB 03/19/19 22:00 03/24/19 21:59 Pantoprazole (Protonix) 40 mg DAILY ORAL 03/16/19 09:00 04/15/19 08:59 03/18/19 09:04 Vancomycin HCl (Vanco rx to dose) 1 ea DAILY PRN MISC Per rx protocol 03/16/19 06:30 04/15/19 06:29 Vancomycin HCl 1 gm/Dextrose 275 ml @ 183.708 mls/hr ONCE IVPB 03/17/19 22:00 03/22/19 21:59 03/17/19 21:43 Cira Ceja M.D. Mar 18, 2019 17:35
--- NOTE | 2019-03-18 19:21 | NUR ---
HAND-OFF: Report given to MARLENY Villafana.
--- NOTE | 2019-03-18 19:44 | NUR ---
NURSE NOTES: Patient in bed, awake and alert x4. On room air with no distress or SOB. No c/o pain at this time. Dressing on L foot dry and intact. IV intact and patent. R arm hemodialysis shunt noted. Bed locked and in lowest position. Will continue to monitor the patient.
[2019-03-18] MEDS ORDERED: Atorvastatin 20mg tab ORAL SCH (21:00)
[2019-03-18] MEDS ORDERED: Levemir Flexpen SUBQ SCH (21:00)
[2019-03-18] MEDS: Heparin 5000 units/ml inj SUBQ SCH (21:14)
[2019-03-18] MEDS: Vancomycin 1gm in D5W 275ml IVPB SCH (23:46)
[2019-03-19 04:00] VITALS: BP 151/85
[2019-03-19] MEDS: NovoLOG Insulin Flexpen SUBQ SCH ×3 (05:56→11:30)
--- NOTE | 2019-03-19 06:47 | Consultation ---
History of Present Illness General Chief Complaint: Abnormal Labs Present Illness Allergies: Coded Allergies: NO KNOWN ALLERGIES (Verified Allergy, Unknown, 12/04/17) Medication History Scheduled Amlodipine Besylate (Norvasc), 5 MG ORAL DAILY, (Reported) Aspirin* (Aspirin*), 81 MG ORAL DAILY, (Reported) Atorvastatin (Lipitor), 10 MG ORAL BEDTIME, (Reported) Cefepime Hcl/D5w (Cefepime-Dextrose 1 Gm/50 Ml), 500 MG IVPB Q24H Epoetin Daniel (Procrit), 5,000 UNITS SUBQ TUE-TUE-TUE Escitalopram Oxalate* (Lexapro*), 10 MG ORAL DAILY, (Reported) Fluconazole* (Diflucan*), 200 MG ORAL DAILY Hydralazine Hcl* (Hydralazine Hcl*), 50 MG ORAL EVERY 8 HOURS, (Reported) Metoprolol Succinate* (Metoprolol Succinate*), 200 MG ORAL DAILY, (Reported) Pravastatin Sod* (Pravastatin Sod*), 40 MG ORAL BEDTIME, (Reported) Sevelamer Carbonate* (Renvela*), 800 MG ORAL THREE TIMES A DAY, (Reported) Valsartan (Diovan), 160 MG ORAL DAILY, (Reported) Scheduled PRN Temazepam* (Restoril*), 15 MG ORAL HSPRN PRN Miscellaneous Medications Isosorbide Mononitrate (Isosorbide Mononitrate Er), 30 MG PO, (Reported) Robinson/Polymyx B Sulf/Dexameth (Molzzn-Ursys-Gggcysnw Eye Drop), 3.5 ML OP, ( Reported) Promethazine HCl/Codeine (Prometh-Codein 6.25-10 mg/5 ml), 5 ML PO, (Reported) Sucroferric Oxyhydroxide (Velphoro), 500 MG PO, (Reported) Sucroferric Oxyhydroxide (Velphoro), 500 MG PO, (Reported) Patient History Healthcare decision maker Resuscitation status Full Code Advanced Directive on File Physical Exam Last 24 Hour Vital Signs Date Time Temp Pulse Resp B/P (MAP) Pulse Ox O2 Delivery O2 Flow Rate FiO2 03/19/19 04:00 98.4 95 18 151/85 (107) 97 03/18/19 23:52 97.5 85 17 125/85 (98) 97 03/18/19 20:03 Room Air 03/18/19 20:00 98.0 92 18 163/95 (117) 97 03/18/19 16:00 97.5 92 20 148/73 (98) 99 03/18/19 15:18 92 148/73 03/18/19 15:17 148/73 03/18/19 12:00 97.5 105 19 115/81 (92) 95 03/18/19 09:00 Room Air 03/18/19 08:00 98.0 99 19 142/100 (114) 99 Intake and Output 03/18/19 03/19/19 19:00 07:00 Intake Total 830 ml 360 ml Balance 830 ml 360 ml Intake Oral 720 ml 360 ml IV Total 110 ml # Bowel Movements 1 Laboratory Tests Test 03/18/19 07:30 03/19/19 05:15 White Blood Count 24.3 K/UL (4.8-10.8) *H Pending Red Blood Count 3.33 M/UL (4.70-6.10) L Pending Hemoglobin 10.2 G/DL (14.2-18.0) L Pending Hematocrit 32.1 % (42.0-52.0) L Pending Mean Corpuscular Volume 96 FL (80-99) Pending Mean Corpuscular Hemoglobin 30.5 PG (27.0-31.0) Pending Mean Corpuscular Hemoglobin Concent 31.6 G/DL (32.0-36.0) L Pending Red Cell Distribution Width 15.6 % (11.6-14.8) H Pending Platelet Count 336 K/UL (150-450) Pending Mean Platelet Volume 7.1 FL (6.5-10.1) Pending Neutrophils (%) (Auto) % (45.0-75.0) Pending Lymphocytes (%) (Auto) % (20.0-45.0) Pending Monocytes (%) (Auto) % (1.0-10.0) Pending Eosinophils (%) (Auto) % (0.0-3.0) Pending Basophils (%) (Auto) % (0.0-2.0) Pending Differential Total Cells Counted 100 Neutrophils % (Manual) 84 % (45-75) H Lymphocytes % (Manual) 6 % (20-45) L Monocytes % (Manual) 10 % (1-10) Eosinophils % (Manual) 0 % (0-3) Basophils % (Manual) 0 % (0-2) Band Neutrophils 0 % (0-8) Platelet Estimate Adequate Platelet Morphology Normal Hypochromasia 1+ Sodium Level 132 MMOL/L (136-145) L Pending Potassium Level 3.4 MMOL/L (3.5-5.1) L Pending Chloride Level 93 MMOL/L (98-107) L Pending Carbon Dioxide Level 29 MMOL/L (21-32) Pending Anion Gap 10 mmol/L (5-15) Blood Urea Nitrogen 47 mg/dL (7-18) H Pending Creatinine 6.8 MG/DL (0.55-1.30) H Pending Estimat Glomerular Filtration Rate 10.4 mL/min (>60) Pending Glucose Level 230 MG/DL (74-106) #H Pending Calcium Level 9.4 MG/DL (8.5-10.1) Pending Total Bilirubin 0.5 MG/DL (0.2-1.0) Pending Aspartate Amino Transf (AST/SGOT) 5 U/L (15-37) L Pending Alanine Aminotransferase (ALT/SGPT) 7 U/L (12-78) L Pending Alkaline Phosphatase 128 U/L (46-116) H Pending Total Protein 7.3 G/DL (6.4-8.2) Pending Albumin 1.8 G/DL (3.4-5.0) L Pending Globulin 5.5 g/dL Pending Albumin/Globulin Ratio 0.3 (1.0-2.7) L Hepatitis A IgM Antibody Pending Hepatitis B Surface Antigen Pending Hepatitis B Core IgM Antibody Pending Hepatitis C Antibody Pending HIV (1&2) Antibody Rapid Negative (NEGATIVE) Random Vancomycin Level Pending Height (Feet): 6 Height (Inches): 0.00 Weight (Pounds): 154 Medications Current Medications Medications (Trade) Dose Ordered Sig/Felix Route PRN Reason Start Time Stop Time Status Last Admin Dose Admin Acetaminophen (Tylenol) 650 mg Q4H PRN ORAL Mild Pain/Temp > 100.5 03/16/19 06:30 04/15/19 06:29 Acetaminophen/ Hydrocodone Bitart ([place] 5/325) 1 tab Q4H PRN ORAL Moderate Pain (Pain Scale 4-6) 03/16/19 06:30 03/23/19 06:29 03/17/19 02:28 Amlodipine Besylate (Norvasc) 5 mg DAILY ORAL 03/18/19 15:00 04/17/19 14:59 03/18/19 15:18 Aspirin (Ecotrin) 81 mg DAILY ORAL 03/18/19 15:15 04/17/19 15:14 03/18/19 15:17 Atorvastatin Calcium (Lipitor) 40 mg BEDTIME ORAL 03/18/19 21:00 04/17/19 20:59 03/18/19 21:09 Clonidine HCl (Catapres Tab) 0.1 mg Q8H PRN ORAL SBP>160 03/17/19 16:45 04/16/19 16:44 03/17/19 17:04 Dextrose (Dextrose 50%) 25 ml Q30M PRN IV Hypoglycemia 03/16/19 13:00 04/15/19 12:59 Dextrose (Dextrose 50%) 50 ml Q30M PRN IV Hypoglycemia 03/16/19 13:00 04/15/19 12:59 03/18/19 15:33 Heparin Sodium (Porcine) (Heparin 5000 units/ml) 5,000 units EVERY 12 HOURS SUBQ 03/18/19 21:00 04/17/19 20:59 03/18/19 21:14 Insulin Aspart (NovoLOG) BEFORE MEALS AND HS SUBQ 03/16/19 06:30 04/15/19 06:29 03/19/19 05:56 Insulin Aspart (NovoLOG) 8 units NOVOTIAC SUBQ 03/17/19 06:30 04/15/19 16:49 03/19/19 05:56 Insulin Detemir (Levemir) 6 units BEDTIME SUBQ 03/18/19 21:00 04/17/19 20:59 03/18/19 21:22 Insulin Detemir (Levemir) 24 units Q24H SUBQ 03/17/19 09:00 04/16/19 08:59 03/18/19 09:05 Losartan Potassium (Cozaar) 50 mg DAILY ORAL 03/18/19 15:00 04/17/19 14:59 03/18/19 15:17 Meropenem 500 mg/ Sodium Chloride 55 ml @ 110 mls/hr Q24H IVPB 03/19/19 22:00 03/24/19 21:59 Pantoprazole (Protonix) 40 mg DAILY ORAL 03/16/19 09:00 04/15/19 08:59 03/18/19 09:04 Vancomycin HCl (Vanco rx to dose) 1 ea DAILY PRN MISC Per rx protocol 03/16/19 06:30 04/15/19 06:29 Vancomycin HCl 1 gm/Dextrose 275 ml @ 183.708 mls/hr ONCE IVPB 03/17/19 22:00 03/22/19 21:59 03/18/19 23:46 Assessment/Plan Assessment/Plan: Hematology Consultation REMariya MD: Candida Toussaint DOS: 03/19/19 Chief Complaint: Abnormal Labs, high PT/PTT ID This a 53-year-old -[place] male with a history of diabetes, high blood pressure, renal failure on hemodialysis. Dialysis days are Tuesday, , and Tuesday. He presents with chief complaint of high blood sugar. It was worsening high at home. He also felt weak and tired. No fever chills but no nausea no vomiting. Decreased appetite. He said that he has problem with his left toe has been ongoing for 2 weeks. He has minimal pain in that area. He has no sensation in that area. No treatment has been done. Denies any other complaint. He is now s/p post op procedure to that foot and continues with coaguloathy and heme consulted. Allergies: NO KNOWN ALLERGIES (Verified Allergy, Unknown, 12/04/17) Patient History Past Medical History: see triage record, old chart reviewed, DM, HTN, renal disease, dialysis Past Surgical History: other Pertinent Family History: none Social History: Denies: smoking Immunizations: other Reviewed Nursing Documentation: PMH: Agreed; PSxH: Agreed Past Medical History: No History, Except For Hx Hypertension: Yes Hx Diabetes: Yes Hx Cancer: No Hx Gastrointestinal Problems: No Hx Dialysis: Yes - ,,sat shunt on right arm Hx Neurological Problems: No Review of Systems Constitutional: Reports: malaise, weakness Eye: Denies: eye pain, blurred vision ENT: Denies: ear pain, nose congestion, throat swelling Respiratory: Denies: cough, shortness of breath Cardiovascular: Denies: chest pain, palpitations Gastrointestinal: Denies: abdominal pain, diarrhea Musculoskeletal: Denies: back pain, joint pain Skin: Denies: rash Neurological: Denies: headache, numbness Endocrine: Denies: increased thirst, increased urine Hematologic/Lymphatic: Denies: easy bruising PE: Vitals: noted General: no apparent distress, alert, thin HEENT: normal, normal pharynx Resp: chest non-tender, lungs clear Cardiovascular: regular rate, rhythm, no murmur GI: normal bowel sounds, non tender, no mass, no organomegaly, no bruit, non- distended MSK: back normal, normal range of motion, gait/station normal, other - Right foot with transmetatarsal amputation. Left foot: His second toe show wet gangrene. Extended to the sole of the foot. Psychiatric: mood/affect normal Labs: reviewed and Inr and ptt elevated Imaging: noted Assessment and Recs: # Leukocytosis is 2ndary to likely infection left 2nd toe --> now is s/p amputation and likely should resolve --> is less likely myeloproliferative disorder --> trend as needed 27-->18-->24 --> continue on abx per id # Coagulopathy -- with elevated pt/ptt --> likely due to either liver disease or sepsis that was present on admission/ dic --> will send MIX study pt/ptt has not been ordered --> us of abdomen (has not been completed last 2 admissions) --> smear reviewed # HTN crisis, continue resume amlodipine and losartan, clonidine PRN for breakthrough HTN. 2D echo reveals normal LV systolic function with LVEF at 65%. --> as per cards, recs noted # Left foot gas gangrene, s/p amputation. suspect deep necrotizing fasciitis, S/ P amputation of left 2nd toe with met head --> podiatry recs noted # Hx of PVD, s/p right TMT amputation. Continue ASA and statins. --> vasc eval # ESRD --> as per renal continue HD # Sepsis due to infected 2nd toe. --> continue on abx # Uncontrolled DM, continue atorvastatin 40 and ASA. Appreciate consultation and dw Dexter Og MD Mar 19, 2019 06:47
--- NOTE | 2019-03-19 07:00 | NUR ---
HAND-OFF: Report given to MARLENY Jo.
[2019-03-19 07:02] LABS: HEMATOCRIT 33.3 % (42.0-52.0); HEMOGLOBIN 10.9 G/DL (14.2-18.0); MEAN CORPUSCULAR VOLUME 95 FL (80-99); PLATELET COUNT 336 K/UL (150-450); RED BLOOD COUNT 3.52 M/UL (4.70-6.10); RED CELL DISTRIBUTION WIDTH 15.9 % (11.6-14.8)
--- NOTE | 2019-03-19 07:06 | General Progress Note ---
Assessment/Plan Problem List: (1) ESRD (end stage renal disease) on dialysis ICD Codes: N18.6 - End stage renal disease; Z99.2 - Dependence on renal dialysis SNOMED: 078245978, 86559002 (2) HTN (hypertension) ICD Codes: I10 - Essential (primary) hypertension SNOMED: 64204523 Qualifiers: Qualified Codes: I10 - Essential (primary) hypertension (3) Hyperglycemia due to type 1 diabetes mellitus ICD Codes: E10.65 - Type 1 diabetes mellitus with hyperglycemia SNOMED: 892198700595181, 50380282 (4) Gangrene of toe of left foot ICD Codes: I96 - Gangrene, not elsewhere classified; Z99.2 - Dependence on renal dialysis SNOMED: 09651701261015405, 36833384 (5) Osteomyelitis of left foot ICD Codes: M86.9 - Osteomyelitis, unspecified SNOMED: 9465534384388648 Assessment/Plan: continue Levemir 6 units qhs continue Levemir 24 units qam reduce Novolog to 6 units ac tid continue NISS ac / hs Subjective Allergies: Coded Allergies: NO KNOWN ALLERGIES (Verified Allergy, Unknown, 12/04/17) All Systems: reviewed and negative except above Subjective events noted hypoglycemia noted Item Value Date Time Bedside Blood Glucose 218 mg/dl H 03/19/19 0556 Bedside Blood Glucose 115 mg/dl 03/18/19 2122 Bedside Blood Glucose 149 mg/dl H 03/18/19 1723 Bedside Blood Glucose 151 mg/dl H 03/18/19 1156 Bedside Blood Glucose 272 mg/dl H 03/18/19 0905 Bedside Blood Glucose 272 mg/dl H 03/18/19 0602 Objective Last 24 Hour Vital Signs Date Time Temp Pulse Resp B/P (MAP) Pulse Ox O2 Delivery O2 Flow Rate FiO2 03/19/19 04:00 98.4 95 18 151/85 (107) 97 03/18/19 23:52 97.5 85 17 125/85 (98) 97 03/18/19 20:03 Room Air 03/18/19 20:00 98.0 92 18 163/95 (117) 97 03/18/19 16:00 97.5 92 20 148/73 (98) 99 03/18/19 15:18 92 148/73 03/18/19 15:17 148/73 03/18/19 12:00 97.5 105 19 115/81 (92) 95 03/18/19 09:00 Room Air 03/18/19 08:00 98.0 99 19 142/100 (114) 99 Intake and Output 03/18/19 03/19/19 19:00 07:00 Intake Total 830 ml 360 ml Balance 830 ml 360 ml Intake Oral 720 ml 360 ml IV Total 110 ml # Bowel Movements 1 Laboratory Tests 03/18/19 07:30: White Blood Count 24.3*H, Red Blood Count 3.33L, Hemoglobin 10.2L, Hematocrit 32.1L, Mean Corpuscular Volume 96, Mean Corpuscular Hemoglobin 30.5, Mean Corpuscular Hemoglobin Concent 31.6L, Red Cell Distribution Width 15.6H, Platelet Count 336, Mean Platelet Volume 7.1, Neutrophils (%) (Auto) , Lymphocytes (%) (Auto) , Monocytes (%) (Auto) , Eosinophils (%) (Auto) , Basophils (%) (Auto) , Differential Total Cells Counted 100, Neutrophils % ( Manual) 84H, Lymphocytes % (Manual) 6L, Monocytes % (Manual) 10, Eosinophils % ( Manual) 0, Basophils % (Manual) 0, Band Neutrophils 0, Platelet Estimate Adequate, Platelet Morphology Normal, Hypochromasia 1+, Sodium Level 132L, Potassium Level 3.4L, Chloride Level 93L, Carbon Dioxide Level 29, Anion Gap 10 , Blood Urea Nitrogen 47H, Creatinine 6.8H, Estimat Glomerular Filtration Rate 10.4, Glucose Level 230#H, Calcium Level 9.4, Total Bilirubin 0.5, Aspartate Amino Transf (AST/SGOT) 5L, Alanine Aminotransferase (ALT/SGPT) 7L, Alkaline Phosphatase 128H, Total Protein 7.3, Albumin 1.8L, Globulin 5.5, Albumin/ Globulin Ratio 0.3L, Hepatitis A IgM Antibody [Pending], Hepatitis B Surface Antigen [Pending], Hepatitis B Core IgM Antibody [Pending], Hepatitis C Antibody [Pending], HIV (1&2) Antibody Rapid Negative 03/19/19 05:15: White Blood Count [Pending], Red Blood Count [Pending], Hemoglobin [Pending], Hematocrit [Pending], Mean Corpuscular Volume [Pending], Mean Corpuscular Hemoglobin [Pending], Mean Corpuscular Hemoglobin Concent [Pending], Red Cell Distribution Width [Pending], Platelet Count [Pending], Mean Platelet Volume [ Pending], Neutrophils (%) (Auto) [Pending], Lymphocytes (%) (Auto) [Pending], Monocytes (%) (Auto) [Pending], Eosinophils (%) (Auto) [Pending], Basophils (%) (Auto) [Pending], Sodium Level [Pending], Potassium Level [Pending], Chloride Level [Pending], Carbon Dioxide Level [Pending], Blood Urea Nitrogen [Pending], Creatinine [Pending], Estimat Glomerular Filtration Rate [Pending], Glucose Level [Pending], Calcium Level [Pending], Total Bilirubin [Pending], Aspartate Amino Transf (AST/SGOT) [Pending], Alanine Aminotransferase (ALT/SGPT) [Pending] , Alkaline Phosphatase [Pending], Total Protein [Pending], Albumin [Pending], Globulin [Pending], Random Vancomycin Level [Pending] Height (Feet): 6 Height (Inches): 0.00 Weight (Pounds): 154 General Appearance: no apparent distress Neck: normal alignment Cardiovascular: normal rate Respiratory/Chest: lungs clear Abdomen: normal bowel sounds Pelvis: normal external exam Objective Current Medications Medications (Trade) Dose Ordered Sig/Felix Route PRN Reason Start Time Stop Time Status Last Admin Dose Admin Acetaminophen (Tylenol) 650 mg Q4H PRN ORAL Mild Pain/Temp > 100.5 03/16/19 06:30 04/15/19 06:29 Acetaminophen/ Hydrocodone Bitart ([place] 5/325) 1 tab Q4H PRN ORAL Moderate Pain (Pain Scale 4-6) 03/16/19 06:30 03/23/19 06:29 03/17/19 02:28 Amlodipine Besylate (Norvasc) 5 mg DAILY ORAL 03/18/19 15:00 04/17/19 14:59 03/18/19 15:18 Aspirin (Ecotrin) 81 mg DAILY ORAL 03/18/19 15:15 04/17/19 15:14 03/18/19 15:17 Atorvastatin Calcium (Lipitor) 40 mg BEDTIME ORAL 03/18/19 21:00 04/17/19 20:59 03/18/19 21:09 Clonidine HCl (Catapres Tab) 0.1 mg Q8H PRN ORAL SBP>160 03/17/19 16:45 04/16/19 16:44 03/17/19 17:04 Dextrose (Dextrose 50%) 25 ml Q30M PRN IV Hypoglycemia 03/16/19 13:00 04/15/19 12:59 Dextrose (Dextrose 50%) 50 ml Q30M PRN IV Hypoglycemia 03/16/19 13:00 04/15/19 12:59 03/18/19 15:33 Heparin Sodium (Porcine) (Heparin 5000 units/ml) 5,000 units EVERY 12 HOURS SUBQ 03/18/19 21:00 04/17/19 20:59 03/18/19 21:14 Insulin Aspart (NovoLOG) BEFORE MEALS AND HS SUBQ 03/16/19 06:30 04/15/19 06:29 03/19/19 05:56 Insulin Aspart (NovoLOG) 8 units NOVOTIAC SUBQ 03/17/19 06:30 04/15/19 16:49 03/19/19 05:56 Insulin Detemir (Levemir) 6 units BEDTIME SUBQ 03/18/19 21:00 04/17/19 20:59 03/18/19 21:22 Insulin Detemir (Levemir) 24 units Q24H SUBQ 03/17/19 09:00 04/16/19 08:59 03/18/19 09:05 Losartan Potassium (Cozaar) 50 mg DAILY ORAL 03/18/19 15:00 04/17/19 14:59 03/18/19 15:17 Meropenem 500 mg/ Sodium Chloride 55 ml @ 110 mls/hr Q24H IVPB 03/19/19 22:00 03/24/19 21:59 Pantoprazole (Protonix) 40 mg DAILY ORAL 03/16/19 09:00 04/15/19 08:59 03/18/19 09:04 Vancomycin HCl (Vanco rx to dose) 1 ea DAILY PRN MISC Per rx protocol 03/16/19 06:30 04/15/19 06:29 Vancomycin HCl 1 gm/Dextrose 275 ml @ 183.708 mls/hr ONCE IVPB 03/17/19 22:00 03/22/19 21:59 03/18/19 23:46 Ferny Godinez MD Mar 19, 2019 07:06
[2019-03-19 07:10] LABS: WHITE BLOOD COUNT 22.2 K/UL (4.8-10.8)
[2019-03-19 07:13] LABS: ALANINE AMINOTRANSFERASE < 6 U/L (12-78); ALBUMIN 1.7 G/DL (3.4-5.0); ALBUMIN/GLOBULIN RATIO 0.3 (1.0-2.7); ALKALINE PHOSPHATASE 118 U/L (46-116); ANION GAP 8 mmol/L (5-15); ASPARTATE AMINO TRANSFERASE 8 U/L (15-37); BILIRUBIN,TOTAL 0.5 MG/DL (0.2-1.0); CARBON DIOXIDE 28 MMOL/L (21-32); CHLORIDE 93 MMOL/L (98-107); POTASSIUM 3.2 MMOL/L (3.5-5.1); SODIUM 129 MMOL/L (136-145)
[2019-03-19 07:24] LABS: BLOOD UREA NITROGEN 53 mg/dL (7-18)
--- NOTE | 2019-03-19 07:27 | NUR ---
NURSE NOTES: Patient awake, alert x4; on room air, no sing of distress and shortness of breath; no sing of chest pain; IV Left For-Arm 22G flushes well; Hemodialysis access on Right-Upper Arm AV shunt; wound dressing on Left-foot dry and intact; side rails up x2, breaks engaged, bed at lowest position; will check blood sugar as scheduled; will keep monitoring.
--- NOTE | 2019-03-19 07:39 | NUR ---
NURSE NOTES: I received a call from Ashlie Kilgore, regarding patient's WBC 22.2; I called and left a message to MD Ceja regarding the critical WBC 22.2; waiting for order.
--- NOTE | 2019-03-19 07:48 | NUR ---
NURSE NOTES: Patient's Na 129 and K 3.2; I called to MD Schwartz office and left a message regarding patient's lab results; I left my name, and call back number; waiting for order;
[2019-03-19 08:00] VITALS: BP 148/87
[2019-03-19] MEDS: Levemir Flexpen SUBQ SCH (09:00)
--- NOTE | 2019-03-19 09:18 | Diagnostic Imaging Report ---
Indication: Left toe gangrene and left foot osteomyelitis Technique: Grayscale and duplex images of the bilateral lower extremity veins Comparison: none Findings: Bilaterally, grayscale and duplex images demonstrate no evidence of intraluminal thrombus. Normal phasic waveforms, demonstrating normal augmentation response and no evidence of valvular insufficiency. Normal compressibility Impression: Negative for lower extremity deep venous thrombosis
[2019-03-19] MEDS: Aspirin EC 81mg tab ORAL SCH (09:19)
[2019-03-19] MEDS: Losartan 50mg tab ORAL SCH (09:19)
[2019-03-19] MEDS: Heparin 5000 units/ml inj SUBQ SCH (09:22)
--- NOTE | 2019-03-19 09:32 | NUR ---
NURSE NOTES: Patient's Levemir 24U wasn't given, checked blood sugar and its 75; according to the order from MD Godinez, "Hold Levemir of Blood Sugar <100; will keep monitoring.
--- NOTE | 2019-03-19 09:45 | General Progress Note ---
Assessment/Plan Assessment/Plan: S: I am feeling better O: Denies pain . . General Appearance: no apparent distress, alert, thin Head: normocephalic, atraumatic Eyes: bilateral eye PERRL, bilateral eye EOMI ENT: hearing grossly normal, normal pharynx Neck: full range of motion, supple, no meningismus Respiratory: chest non-tender, lungs clear, normal breath sounds Cardiovascular #1: regular rate, rhythm, no murmur Gastrointestinal: normal bowel sounds, non tender, no mass, no organomegaly, no bruit, non-distended Musculoskeletal: back normal, normal range of motion, gait/station normal, other - Right foot with transmetatarsal amputation. Left foot: post op changes with appropriate dressing . Unable to palpate a pulse. Psychiatric: mood/affect normal Meds and Labs reviwed today on 03/19/2019 Assessment/Plan: A/P: 1- Sepsis 2- Lt foot OM/ abcess 3- ESRDx HD 4- DM-2 5- HTN 6- Anemia 7- PVD, Plan: Emprical abx Notes from Pod, Vas, Nephro, ENdo, reviewd S/P Left foot toe amputation and I&D by Podiatry Transfer to [facility] for [facility] for preop and Vas procedure Subjective Allergies: Coded Allergies: NO KNOWN ALLERGIES (Verified Allergy, Unknown, 12/04/17) Objective Last 24 Hour Vital Signs Date Time Temp Pulse Resp B/P (MAP) Pulse Ox O2 Delivery O2 Flow Rate FiO2 03/19/19 09:19 148/87 03/19/19 09:19 104 148/87 03/19/19 08:00 98.0 104 19 148/87 (107) 100 03/19/19 04:00 98.4 95 18 151/85 (107) 97 03/18/19 23:52 97.5 85 17 125/85 (98) 97 03/18/19 20:03 Room Air 03/18/19 20:00 98.0 92 18 163/95 (117) 97 03/18/19 16:00 97.5 92 20 148/73 (98) 99 03/18/19 15:18 92 148/73 03/18/19 15:17 148/73 03/18/19 12:00 97.5 105 19 115/81 (92) 95 Intake and Output 03/18/19 03/19/19 19:00 07:00 Intake Total 830 ml 360 ml Balance 830 ml 360 ml Intake Oral 720 ml 360 ml IV Total 110 ml # Bowel Movements 1 Laboratory Tests 03/19/19 05:15: White Blood Count 22.2*H, Red Blood Count 3.52L, Hemoglobin 10.9L, Hematocrit 33.3L, Mean Corpuscular Volume 95, Mean Corpuscular Hemoglobin 31.0, Mean Corpuscular Hemoglobin Concent 32.7, Red Cell Distribution Width 15.9H, Platelet Count 336, Mean Platelet Volume 7.6, Neutrophils (%) (Auto) , Lymphocytes (%) (Auto) , Monocytes (%) (Auto) , Eosinophils (%) (Auto) , Basophils (%) (Auto) , Differential Total Cells Counted 100, Neutrophils % ( Manual) 91H, Lymphocytes % (Manual) 2L, Monocytes % (Manual) 6, Eosinophils % ( Manual) 1, Basophils % (Manual) 0, Band Neutrophils 0, Platelet Estimate Adequate, Platelet Morphology Normal, Hypochromasia 1+, Anisocytosis 1+, Sodium Level 129L, Potassium Level 3.2L, Chloride Level 93L, Carbon Dioxide Level 28, Anion Gap 8, Blood Urea Nitrogen 53H, Creatinine 8.0H, Estimat Glomerular Filtration Rate 8.6, Glucose Level 196H, Calcium Level 9.0, Total Bilirubin 0.5 , Aspartate Amino Transf (AST/SGOT) 8L, Alanine Aminotransferase (ALT/SGPT) < 6L , Alkaline Phosphatase 118H, Total Protein 7.1, Albumin 1.7L, Globulin 5.4, Albumin/Globulin Ratio 0.3L, Random Vancomycin Level 38.0 03/19/19 09:30: Prothrombin Time [Pending], Prothromb Time International Ratio [Pending] Height (Feet): 6 Height (Inches): 0.00 Weight (Pounds): 154 Candida Toussaint MD Mar 19, 2019 09:45
--- NOTE | 2019-03-19 09:57 | NUR ---
CASE MANAGEMENT: TRANSFER REQUEST PATIENTS CLINICALS HAVE BEEN FAXED TO [facility] T: [phone] F: [phone] WAITING FOR RESPONSE
--- NOTE | 2019-03-19 10:36 | NUR ---
NURSE NOTES: metallurgical engineering technicianGamaliel said, to keep patient NPO after midnight and they gonna do US ABD in the mooring; charge nurse, Yolande is aware.
--- NOTE | 2019-03-19 11:49 | NUR ---
NURSE NOTES: MD Lane changed Left-foot dressing at the bed side; patient tolerated well;
[2019-03-19] MEDS ORDERED: NovoLOG Insulin Flexpen SUBQ SCH (11:50)
[2019-03-19 12:00] VITALS: BP 140/84
--- NOTE | 2019-03-19 12:15 | Consultation ---
DATE OF CONSULTATION: 03/16/2019 INFECTIOUS DISEASE CONSULTATION CONSULTING PHYSICIAN: Cira Ceja M.D. REFERRING PHYSICIAN: Candida Toussaint M.D. REASON FOR CONSULTATION: Left foot gangrene, possible necrotizing fasciitis with gas in a dialysis patient. Recommendation for antibiotics treatment. HISTORY OF PRESENT ILLNESS: The patient is a 53-year-old male with past medical history of diabetes mellitus poorly controlled, end-stage renal disease on hemodialysis, and diabetic neuropathy with complication status post right foot metatarsal amputation in the past, presented to [facility] emergency room with left foot pain, swelling, and second dorsum toe wound infection which has been going on for the last two weeks. His wound has been draining purulent material from the dorsal area of the second toe. The patient remember locking his foot in the side of the bed which triggered his wound and possibly the infection down the road. He has pain and swelling in the left foot, but no fever or chills. The patient had foul smell from the left foot and x-ray of the foot showed evidence of gas extending all the way to the calcaneal area concerning for necrotizing fasciitis. He was started on vancomycin and Zosyn. Oil Furnace Installer and Vascular were consulted for surgical intervention, and Infectious Disease consultation was requested for antibiotic guidance and further care. REVIEW OF SYSTEMS: A 14-point of system reviewed were all negative apart from the one I mentioned above in my History and Physical PAST MEDICAL HISTORY: Significant for end-stage renal disease on hemodialysis, diabetes poorly controlled with complication, history of right foot infection with osteo and gangrene status post amputation of the metatarsal area, and hypertension. PAST SURGICAL HISTORY: He had right foot metatarsal amputation. FAMILY HISTORY: Not contributory. SOCIAL HISTORY: The patient lives in rehab. No recent drugs, tobacco, or alcohol abuse. Unemployed. ALLERGIES: No known drug allergies. MEDICATIONS: Currently, he is on vancomycin and Zosyn. For the rest of his medications, please refer to MAY. PHYSICAL EXAMINATION: VITAL SIGNS: Temperature 98.5, pulse 75, respirations 19, and blood pressure 126/70. Saturation 99% on room air. GENERAL: A middle-aged male, lying in bed, awake and alert, lethargic, in no acute distress. HEENT: Normocephalic and atraumatic. Pupils are reactive to light. Moist oral mucosa. No exudate or thrush. NECK: Supple. No lymphadenopathy. CARDIOVASCULAR: Regular rate and rhythm. No murmur. No gallop. LUNGS: Clear bilaterally. No wheezing or rhonchi. Diminished breathing sounds at the bases. ABDOMEN: Soft, nontender, and nondistended. Normal bowel sounds. No hepatosplenomegaly. No ascites. EXTREMITIES: Left foot swelling with left second toe digit dorsum wound infection draining purulent material with foul smell. Could not appreciate any fremitus on the left foot plantar area. Right foot amputated at the transmetatarsal area. LABORATORY DATA: Labs showed white count of 27,000, hemoglobin of 12.4, and platelet count of 357,000. BUN of 33, creatinine of 6.1. Glucose of 745. IMAGING: Left foot x-ray showed large amount of gas within the plantar soft tissue of the foot extending back to the level of the calcaneus, possible necrotizing infection is not excluded. Soft tissue ulcer involving the second digit, possibility of subtle bony change due to acute osteo on the second digit can be considered. ASSESSMENT AND RECOMMENDATION: 1. Left foot gangrene with gas in the plantar area, possible necrotizing fasciitis. Continue vancomycin and Zosyn dosed per pharmacy. Add clindamycin. Send wound draining for culture. Oil Furnace Installer evaluation for amputation as soon as possible. 2. Osteomyelitis of the left foot due to the above, on wide-spectrum antibiotics pending amputation and pathology. 3. Sepsis with leukocytosis due to the above. Continue wide-spectrum antibiotics pending blood culture. 4. Diabetes mellitus, poorly controlled with hyperglycemia. Continue tight glycemic control to keep blood glucose between 100 to 142. Thank you for the consult. ID will continue to follow. Cira Ceja M.D. DR: CARMEN JOB#: [id number] CC:
--- NOTE | 2019-03-19 12:15 | Consultation ---
DATE OF CONSULTATION: 03/16/2019 NOTE: "POOR/DISTORTED AUDIO" PODIATRY CONSULTATION REFERRING PHYSICIAN: Candida Toussaint M.D. CONSULTING PHYSICIAN: Landon aLne DPM. REASON FOR CONSULTATION: Gangrene of the left foot, hyperglycemia. HISTORY OF PRESENT ILLNESS: The patient is a 53-year-old male, who is known to my service from previous admissions. Currently states that he stubbed his left second toe on furniture at his home and noted that the toe apparently was looking worse, started to feel pain, had drainage from the site and felt weak, and sought emergency care. Currently, denies any fevers, chills, nausea, or vomiting. He is unaware that the toe is gangrenous. PAST MEDICAL HISTORY: Significant for uncontrolled diabetes mellitus, peripheral vascular disease, end-stage renal disease, history of amputation of toes of right foot, and hypertension. PAST SURGICAL HISTORY: As noted above including endovascular lower extremity procedures. MEDICATIONS: Per MAR and include vancomycin and Zosyn. ALLERGIES: No known drug allergies. SOCIAL HISTORY: Noncontributory. FAMILY HISTORY: Noncontributory. REVIEW OF SYSTEMS: CONSTITUTIONAL: The patient denies any constitutional symptoms. HEENT: The patient denies any headaches, blurred vision, or ringing in the ears. CARDIORESPIRATORY: The patient denies any chest pain or shortness of breath. GASTROINTESTINAL: The patient denies any constipation, diarrhea, or blood in stool. PHYSICAL EXAMINATION: VITAL SIGNS: Temperature is 98.8, pulse is 72, respiration rate 17, blood pressure is 124/68, and saturating 100% on room air. LOWER EXTREMITIES: VASCULAR: Nonpalpable pedal pulses noted bilaterally. Left foot is warmer than the right. DERMATOLOGICAL: There is mild pitting edema noted on the left foot. No edema on the right. Dermatological exam of the right foot is unremarkable. On the left foot, there is a wound noted in the first and second interspace, left second toe is gangrenous, there is malodor noted from this site, there is mild serous discharge noted. Discoloration of the plantar foot is noted. Bilateral heels are intact. Neurological protective threshold is absent. MUSCULOSKELETAL: The patient is ambulatory. He has a right transmetatarsal amputation. No other gross deformities are noted. LABORATORY DATA: White blood cell count was 27 yesterday, hemoglobin 12.4, hematocrit 38.0, and platelet count is 357,000. Potassium is 5.8, BUN is 33, creatinine 6.1. Glucose was 745. Hemoglobin A1c 11.6. INR is 1.1, PT is 11.8, and PTT is 40. X-ray was pending this morning. Upon review again of the chart during my consultation, noted that the x-ray findings were reported to the nurse on the floor at 11:22 a.m. My consultation was at 9 a.m. Nurse failed to report this finding , which relates gas in the tissues, a large amount of gas noted in the plantar soft tissues of the foot extending back to the level of calcaneus, possibly could be a necrotizing infection according to the study. ASSESSMENT: 1. Gas gangrene of the left foot. 2. Sepsis. 3. End-stage renal disease, on hemodialysis, awaiting dialysis. 4. Uncontrolled diabetes mellitus. 5. Type 2 diabetes mellitus with peripheral neuropathy. 6. Peripheral arterial disease. 7. History of noncompliance. PLAN: 1. Again, the patient was seen and evaluated this morning at 9 a.m. The patient likely would need amputation, IV antibiotics, and wound care pending Vascular consult. Apparently since then, the x-rays were resulted and conveyed to the nurse at approximately 11:22 a.m. this morning, but failed to notifying physicians that there was gas diagnosis. At that point, I called the nurse and discussed the situation. I have placed him on NPO to see if we can take him to the OR this evening. I discussed the case with the primary care doctor as well as Anesthesia, and they advised me to wait until tomorrow morning to medically optimize the patient. The patient apparently needs to be dialyzed and optimized. 2. Continue wound care and antibiotics. We will order stat CBC and BMP. 3. was consulted for vascular consult this morning. 4. orders were consented, NPO for midnight tonight. 5. The patient is on schedule for tomorrow morning at 9 a.m. pending medical clearance. Thank you for the courtesy of this consultation. Landon Lane D.P.M. DR: Nyla JOB#: [id number] CC:
--- NOTE | 2019-03-19 13:00 | Operative Note - Dictated ---
DATE OF OPERATION: 03/17/2019 SURGEON: Landon Lane D.P.M. KNOCKOUT MACHINE OPERATOR SURGEON: None. ANESTHESIOLOGIST: Nilson Madsen M.D. TYPE OF ANESTHESIA: MAC with local, 0.25% plain Marcaine, block 10 mL was used. PREOPERATIVE DIAGNOSES: 1. Gas gangrene of the left foot with gangrenous left second toe. 2. Deep abscess. 3. Sepsis. 4. End-stage renal disease, on hemodialysis. 5. Uncontrolled diabetes mellitus. 6. Diabetic neuropathy. 7. Peripheral arterial disease, chronic. 8. History of noncompliance. POSTOPERATIVE DIAGNOSES: 1. Gas gangrene of the left foot with gangrenous left second toe. 2. Deep abscess. 3. Sepsis. 4. End-stage renal disease, on hemodialysis. 5. Uncontrolled diabetes mellitus. 6. Diabetic neuropathy. 7. Peripheral arterial disease, chronic. 8. History of noncompliance. PROCEDURE PERFORMED: 1. Amputation of left second toe with the metatarsal head. 2. Incision and drainage deep to fascia, left foot. 3. Excisional debridement to the level of bone, left foot. OPERATIVE PROCEDURE: The patient was transported to the operating room and placed on the operating table in supine position. Anesthesiologist then began sedation. Left ankle was blocked utilizing 10 mL of 0.25% plain Marcaine. Left lower extremity was scrubbed, prepped and draped in an usual aseptic manner. Time-out was taken to identify the patient and surgical site. Incision was then made to encompass the left second toe. This was disarticulated at the metatarsophalangeal joint. It was noted the proximal phalanx was fractured and portions were in the wound. These were excised. The second metatarsal head was noted to be necrotic. Soft tissue attachments were released and sagittal saw was utilized to resect the distal 1/3 of the second metatarsal. This was removed and all was admitted into this specimen as 1. Careful exploration of the wound was performed. Extensive necrosis of the soft tissue was noted and extensive large amounts of malodorous seng purulence was noted from the area. Multiple compartments were noted to be invaded including two plantar compartments as well as one dorsal compartment. Extensive exploration was performed and drainage of all the sites were done. Incision was extended to the plantar mid foot to be able to evacuate all the purulence from this area. The wound probed all the way to the calcaneus plantarly and then after the areas were thoroughly explored and debrided and drained, no further seng purulence was noted. No further necrosis was identified. The wound was copiously flushed. Prior to this, cultures were taken. The wound was copiously flushed and gloves were changed. New drapes were placed. Wound was packed. Dressings were applied. The patient tolerated the procedure and anesthesia well, was transferred to recovery room in stable condition. No complications. The patient was given a gram of Ancef by Dr. Madsen prior to procedure with no adverse effects. The patient is also on clindamycin. We will return the patient back to the floor to resume his preoperative diet and medications. The patient should be nonweightbearing on the left foot. Wound care orders were placed to have the dressing changed daily. foot at this point . Prognosis is poor and limb salvage is unlikely. This is communicated to the rest of the team including Dr. Alexis, Dr. Toussaint, Dr. Ceja, and Dr. Falcon. The patient will be transferred to [facility] for possible angiogram by Dr. Alexis. We will continue to follow him postoperatively in the location. Landon Lane D.P.M. DR: Roseann JOB#: [id number] CC:
--- NOTE | 2019-03-19 13:01 | Consultation ---
DATE OF CONSULTATION: 03/15/2019 NOTE: POOR AUDIO CONSULTING PHYSICIAN: Petr Alexis M.D. REFERRING PHYSICIAN: Landon Lane DPM and . REASON FOR CONSULTATION: Left foot gangrene and necrosis. HISTORY OF PRESENT ILLNESS: This is a 53-year-old male with end-stage renal disease, on hemodialysis through right upper arm AV shunt. The patient continues to smoke cigarettes and marijuana on a daily basis and he reports for many years. The patient has left foot and toe gangrene and necrosis , presented with right foot infection and also very elevated sugars and HbA1c of 11, poorly controlled diabetes. Also, the patient for further evaluation. The patient also sepsis with a white count of 27,000 awaiting abscess drainage by Podiatry service . PAST MEDICAL HISTORY: As above, history of end-stage renal disease, on hemodialysis, hypertension, has been smoking cigarettes and marijuana, diabetes mellitus poorly controlled, HbA1c of 11, calcific arterial occlusive disease, anemia. MEDICATIONS: See attached MAR. ALLERGIES: No known drug allergies SOCIAL HISTORY: Continues to smoke cigarettes and marijuana on a daily basis. Denies other drugs or alcohol use. FAMILY HISTORY: Unremarkable. SYSTEM REVIEW: CARDIOVASCULAR: No history of chest pain or palpitations. PULMONARY: No cough or hemoptysis. GASTROINTESTINAL: No history of abdominal pain, constipation, or diarrhea. GENITOURINARY: No dysuria, frequency, or urgency. NEUROLOGICAL: No history of strokes or seizures. PHYSICAL EXAMINATION: VITAL SIGNS: The patient currently afebrile, temperature 98.5, heart rate 75, respirations 19, blood pressure 126/70 with a mean of 88, saturation 99% on room air has a palpable thrill. LUNGS: Clear to auscultation. HEART: Regular rate and rhythm. ABDOMEN: Soft and nontender. EXTREMITIES: Palpable femoral pulses, popliteal and dorsalis pedis pulses toe amputation . Left foot and toe infected necrosis noted. LABORATORY DATA: WBC of 27,000, hemoglobin 12.4, and platelet count 357,000. HbA1c of 11.6. IMPRESSION: 1. Left foot toe gangrene with necrosis with infection with sepsis, leukocytosis. 2. Poorly controlled diabetes mellitus. 3. . 4. End-stage renal disease, on hemodialysis through right upper arm AV shunt. 5. History of hypertension. 6. Anemia. 7. . PLAN: 1. service. Podiatry evaluation infection. 2. We will do duplex imaging. 3. . 4. . 5. 03:31 controlled. 6. left foot amputation given the extent of the foot gangrene and infection and . Petr Alexis M.D. DR: KAROLINE JOB#: [id number] CC: Candida Toussaint M.D.; Fax#: [phone] Juanjose SEALSPTori ; FAX#: [phone]
--- NOTE | 2019-03-19 14:01 | Nephrology Progress Note ---
Assessment/Plan Assessment 1.ESRD 2.ASHLEY 3.DM 4.HTN 5.PVD 6.Left foot DF Plan 1.dialysis as schedule 2.check phos 3.low k diet 4.continue epogen Subjective Constitutional: Reports: no symptoms HEENT: Reports: no symptoms Neurologic/Psychiatric: Reports: no symptoms Subjective going to be transfer to [facility] alert and awake feeling ok Objective Objective Last 24 Hour Vital Signs Date Time Temp Pulse Resp B/P (MAP) Pulse Ox O2 Delivery O2 Flow Rate FiO2 03/19/19 12:00 98.2 101 19 140/84 (102) 98 03/19/19 09:19 148/87 03/19/19 09:19 104 148/87 03/19/19 09:00 Room Air 03/19/19 08:00 98.0 104 19 148/87 (107) 100 03/19/19 04:00 98.4 95 18 151/85 (107) 97 03/18/19 23:52 97.5 85 17 125/85 (98) 97 03/18/19 20:03 Room Air 03/18/19 20:00 98.0 92 18 163/95 (117) 97 03/18/19 16:00 97.5 92 20 148/73 (98) 99 03/18/19 15:18 92 148/73 03/18/19 15:17 148/73 Intake and Output 03/18/19 03/19/19 19:00 07:00 Intake Total 830 ml 360 ml Balance 830 ml 360 ml Intake Oral 720 ml 360 ml IV Total 110 ml # Bowel Movements 1 Laboratory Tests 03/19/19 05:15: White Blood Count 22.2*H, Red Blood Count 3.52L, Hemoglobin 10.9L, Hematocrit 33.3L, Mean Corpuscular Volume 95, Mean Corpuscular Hemoglobin 31.0, Mean Corpuscular Hemoglobin Concent 32.7, Red Cell Distribution Width 15.9H, Platelet Count 336, Mean Platelet Volume 7.6, Neutrophils (%) (Auto) , Lymphocytes (%) (Auto) , Monocytes (%) (Auto) , Eosinophils (%) (Auto) , Basophils (%) (Auto) , Differential Total Cells Counted 100, Neutrophils % ( Manual) 91H, Lymphocytes % (Manual) 2L, Monocytes % (Manual) 6, Eosinophils % ( Manual) 1, Basophils % (Manual) 0, Band Neutrophils 0, Platelet Estimate Adequate, Platelet Morphology Normal, Hypochromasia 1+, Anisocytosis 1+, Sodium Level 129L, Potassium Level 3.2L, Chloride Level 93L, Carbon Dioxide Level 28, Anion Gap 8, Blood Urea Nitrogen 53H, Creatinine 8.0H, Estimat Glomerular Filtration Rate 8.6, Glucose Level 196H, Calcium Level 9.0, Total Bilirubin 0.5 , Aspartate Amino Transf (AST/SGOT) 8L, Alanine Aminotransferase (ALT/SGPT) < 6L , Alkaline Phosphatase 118H, Total Protein 7.1, Albumin 1.7L, Globulin 5.4, Albumin/Globulin Ratio 0.3L, Random Vancomycin Level 38.0 03/19/19 09:30: Prothrombin Time 10.7, Prothromb Time International Ratio 1.0 Height (Feet): 6 Height (Inches): 0.00 Weight (Pounds): 154 Objective Head: normocephalic, atraumatic Eyes: bilateral eye PERRL, bilateral eye EOMI Neck: full range of motion, supple, no meningismus Respiratory: chest non-tender, lungs clear, normal breath sounds Cardiovascular #1: regular rate, rhythm, no murmur Gastrointestinal: normal bowel sounds, non tender, no mass, no organomegaly, no bruit, non-distended Musculoskeletal: back normal, normal range of motion, gait/station normal, other - Right foot with transmetatarsal amputation. Left foot: His second toe show wet gangrene. Extended to the sole of the foot. Unable to palpate a pulse. Psychiatric: mood/affect normal Tessa Schwartz MD Mar 19, 2019 14:01
--- NOTE | 2019-03-19 14:29 | NUR ---
NURSE NOTES: Patient did eat >50% of his lunch; patient encouraged to eat his lunch and patient teaching given regarding hypoglycemia; lunch time Minda-log not given;
--- NOTE | 2019-03-19 14:42 | NUR ---
TRANSFER UPDATE: DR. ESPINAL AND DR. BARCENAS TO TRANSFER PATIENT TO [facility] [phone] FOR NURSE TO NURSE REPORT ROOM# 215 [facility] PICKUP TIME WITHIN THE HOUR Addendum: 03/19/19 at 1445 by ADELAIDA WATERMAN LVN PATIENT IS NEEDING A CARDIO CATH PER DR ESPINAL
--- NOTE | 2019-03-19 14:57 | Infectious Diseases Prog Note ---
Assessment/Plan Problems: (1) Gangrene of toe of left foot Assessment & Plan: with gas in the plantar area, suspect deep necrotizing fasciitis, S/P amputation of left 2nd toe with metatarsal bone head, Incision and drainage deep to fascia left foot, and excisional debridement to level of bone left foot, continue vancomycin, switch zosyn to meropenem and stop clindamycin for now , pending culture from OR , his wound draining culture is growing gram negative rods , follow up with despatch clerk , and vascular for possible angioplasty (2) Diabetes mellitus Assessment & Plan: poorly controlled with complication continue tight glycemic control to keep blood glucose between 100-140 (3) Sepsis Assessment & Plan: due to the above, continue wide spectrum antibiotics pending blood culture (4) Osteomyelitis of left foot Assessment & Plan: continue wide spectrum antibiotics pending cultures and pathology from OR Subjective Constitutional: Reports: no symptoms HEENT: Reports: no symptoms Respiratory: Reports: no symptoms Breasts: Reports: no symptoms Cardiovascular: Reports: no symptoms Gastrointestinal/Abdominal: Reports: no symptoms Genitourinary: Reports: no symptoms Neurologic: Reports: no symptoms Psychiatric: Reports: no symptoms Skin: Reports: no symptoms Endocrine: Reports: no symptoms Hematologic: Reports: no symptoms Musculoskeletal: Reports: no symptoms Allergies: Coded Allergies: NO KNOWN ALLERGIES (Verified Allergy, Unknown, 12/04/17) Subjective He had amputation of left 2nd toe with met head, Incision and drainage deep to fascia left foot, and excisional debridement to level of bone left foot by despatch clerk today, tolerated procedure well , no pain, no fever or chills . Objective Vital Signs Last 24 Hour Vital Signs Date Time Temp Pulse Resp B/P (MAP) Pulse Ox O2 Delivery O2 Flow Rate FiO2 03/19/19 12:00 98.2 101 19 140/84 (102) 98 03/19/19 09:19 148/87 03/19/19 09:19 104 148/87 03/19/19 09:00 Room Air 03/19/19 08:00 98.0 104 19 148/87 (107) 100 03/19/19 04:00 98.4 95 18 151/85 (107) 97 03/18/19 23:52 97.5 85 17 125/85 (98) 97 03/18/19 20:03 Room Air 03/18/19 20:00 98.0 92 18 163/95 (117) 97 03/18/19 16:00 97.5 92 20 148/73 (98) 99 03/18/19 15:18 92 148/73 03/18/19 15:17 148/73 Height (Feet): 6 Height (Inches): 0.00 Weight (Pounds): 154 General Appearance: no acute distress, cachetic HEENT: normocephalic, atraumatic, anicteric, mucous membranes moist, PERRL Respiratory/Chest: chest wall non-tender, no respiratory distress, no accessory muscle use, respiratory distress, decreased breath sounds, crackles/ rales Cardiovascular: normal peripheral pulses, normal rate, regular rhythm, no gallop/murmur, no JVD Abdomen: normal bowel sounds, soft, non tender, no organomegaly, non distended , no mass, no scars Extremities: no cyanosis, no clubbing Skin: no rash, no lesions, other - left foot surgical wound covered with gauze and dressings Neurologic/Psychiatric: alert, responsive Lymphatic: no neck adenopathy, no groin adenopathy Musculoskeletal: normal muscle bulk, no effusion Microbiology Date/Time Source Procedure Growth Status 03/17/19 10:20 Foot Left Gram Stain - Final Resulted 03/17/19 10:20 Aerobic Culture - Final Citrobacter Diversus Resulted 03/17/19 10:20 Foot Left Anaerobic Culture Pending Resulted Laboratory Tests Test 03/19/19 05:15 03/19/19 09:30 White Blood Count 22.2 K/UL (4.8-10.8) *H Red Blood Count 3.52 M/UL (4.70-6.10) L Hemoglobin 10.9 G/DL (14.2-18.0) L Hematocrit 33.3 % (42.0-52.0) L Mean Corpuscular Volume 95 FL (80-99) Mean Corpuscular Hemoglobin 31.0 PG (27.0-31.0) Mean Corpuscular Hemoglobin Concent 32.7 G/DL (32.0-36.0) Red Cell Distribution Width 15.9 % (11.6-14.8) H Platelet Count 336 K/UL (150-450) Mean Platelet Volume 7.6 FL (6.5-10.1) Neutrophils (%) (Auto) % (45.0-75.0) Lymphocytes (%) (Auto) % (20.0-45.0) Monocytes (%) (Auto) % (1.0-10.0) Eosinophils (%) (Auto) % (0.0-3.0) Basophils (%) (Auto) % (0.0-2.0) Differential Total Cells Counted 100 Neutrophils % (Manual) 91 % (45-75) H Lymphocytes % (Manual) 2 % (20-45) L Monocytes % (Manual) 6 % (1-10) Eosinophils % (Manual) 1 % (0-3) Basophils % (Manual) 0 % (0-2) Band Neutrophils 0 % (0-8) Platelet Estimate Adequate Platelet Morphology Normal Hypochromasia 1+ Anisocytosis 1+ Sodium Level 129 MMOL/L (136-145) L Potassium Level 3.2 MMOL/L (3.5-5.1) L Chloride Level 93 MMOL/L (98-107) L Carbon Dioxide Level 28 MMOL/L (21-32) Anion Gap 8 mmol/L (5-15) Blood Urea Nitrogen 53 mg/dL (7-18) H Creatinine 8.0 MG/DL (0.55-1.30) H Estimat Glomerular Filtration Rate 8.6 mL/min (>60) Glucose Level 196 MG/DL (74-106) H Calcium Level 9.0 MG/DL (8.5-10.1) Total Bilirubin 0.5 MG/DL (0.2-1.0) Aspartate Amino Transf (AST/SGOT) 8 U/L (15-37) L Alanine Aminotransferase (ALT/SGPT) < 6 U/L (12-78) L Alkaline Phosphatase 118 U/L (46-116) H Total Protein 7.1 G/DL (6.4-8.2) Albumin 1.7 G/DL (3.4-5.0) L Globulin 5.4 g/dL Albumin/Globulin Ratio 0.3 (1.0-2.7) L Random Vancomycin Level 38.0 ug/mL Prothrombin Time 10.7 SEC (9.30-11.50) Prothromb Time International Ratio 1.0 (0.9-1.1) Current Medications Medications (Trade) Dose Ordered Sig/Felix Route PRN Reason Start Time Stop Time Status Last Admin Dose Admin Acetaminophen (Tylenol) 650 mg Q4H PRN ORAL Mild Pain/Temp > 100.5 03/16/19 06:30 04/15/19 06:29 Acetaminophen/ Hydrocodone Bitart ([place] 5/325) 1 tab Q4H PRN ORAL Moderate Pain (Pain Scale 4-6) 03/16/19 06:30 03/23/19 06:29 03/17/19 02:28 Amlodipine Besylate (Norvasc) 5 mg DAILY ORAL 03/18/19 15:00 04/17/19 14:59 03/19/19 09:19 Aspirin (Ecotrin) 81 mg DAILY ORAL 03/18/19 15:15 04/17/19 15:14 03/19/19 09:19 Atorvastatin Calcium (Lipitor) 40 mg BEDTIME ORAL 03/18/19 21:00 04/17/19 20:59 03/18/19 21:09 Clonidine HCl (Catapres Tab) 0.1 mg Q8H PRN ORAL SBP>160 03/17/19 16:45 04/16/19 16:44 03/17/19 17:04 Dextrose (Dextrose 50%) 25 ml Q30M PRN IV Hypoglycemia 03/16/19 13:00 04/15/19 12:59 Dextrose (Dextrose 50%) 50 ml Q30M PRN IV Hypoglycemia 03/16/19 13:00 04/15/19 12:59 03/18/19 15:33 Heparin Sodium (Porcine) (Heparin 5000 units/ml) 5,000 units EVERY 12 HOURS SUBQ 03/18/19 21:00 04/17/19 20:59 03/19/19 09:22 Insulin Aspart (NovoLOG) BEFORE MEALS AND HS SUBQ 03/16/19 06:30 04/15/19 06:29 03/19/19 05:56 Insulin Aspart (NovoLOG) 6 units NOVOTIAC SUBQ 03/19/19 11:50 04/15/19 16:49 Insulin Detemir (Levemir) 6 units BEDTIME SUBQ 03/18/19 21:00 04/17/19 20:59 03/18/19 21:22 Insulin Detemir (Levemir) 24 units Q24H SUBQ 03/17/19 09:00 04/16/19 08:59 03/18/19 09:05 Losartan Potassium (Cozaar) 50 mg DAILY ORAL 03/18/19 15:00 04/17/19 14:59 03/19/19 09:19 Meropenem 500 mg/ Sodium Chloride 55 ml @ 110 mls/hr Q24H IVPB 03/19/19 22:00 03/24/19 21:59 Pantoprazole (Protonix) 40 mg DAILY ORAL 03/16/19 09:00 04/15/19 08:59 03/19/19 09:20 Vancomycin HCl (Vanco rx to dose) 1 ea DAILY PRN MISC Per rx protocol 03/16/19 06:30 04/15/19 06:29 Cira Ceja M.D. Mar 19, 2019 14:57
--- NOTE | 2019-03-19 15:16 | NUR ---
CHARGE NURSE NOTE: Spoke with , notified him that pt will be discharged to [facility], med. recon. has not been done yet. Ambulance at the pt bed. said that he will do it in on the computer, and he asked CN to do med.recon in paper form. Med. recon. done, verified with .
--- NOTE | 2019-03-19 15:30 | NUR ---
CASE MANAGEMENT: REVIEW 03/19/19 SI:S/P I&D AND AMPUTATION OF LEFT SECOND TOE LEFT FOOT GAS GANGRENE . SEPSIS . ESRD ON HD . UNCONTROLLED DM II . PVD 98.0 104 19 148/87 100% ON RA WBC 22.2 H/H 10.9/33.3 NA+ 129 K+ 3.2 BUN 53 CREAT 8.0 CL- 93 H/H 12.4/38 BG 196 IS:IV VANCO X1 HEPARIN SQ BID NORVASC PO QD COZAAR PO QD CATAPRES Q8HR ASPIRIN PO QD IV D5 @30MLMIN/PRN \: 4E MED SURG UNIT PLAN: TRANSFER TO [facility] FOR CARDIO CATH PER DR. ESPINAL AND DR. BARCENAS US ABD R/O CIRRHOSIS
--- NOTE | 2019-03-19 15:45 | NUR ---
NURSE NOTES: Patient transferred to [facility], left the floor by zuleyma, accompanied by two ambulance personnel; telephone report given to MARLENY Lancaster; patient's belonging signed by patient and discharging nurse; printed package given to ambulance personnel; swaps done for MRSA-Nare; name tag removed upon discharge; patient is stable upon discharge.
--- NOTE | 2019-03-19 16:45 | Consultation ---
DATE OF CONSULTATION: 03/17/2019 NEPHROLOGY CONSULTATION CONSULTING PHYSICIAN: Tessa Schwartz M.D. REFERRING PHYSICIAN: Candida Toussaint M.D. REASON FOR CONSULTATION: Hyperkalemia, end-stage renal disease, need for dialysis. HISTORY OF PRESENT ILLNESS: The patient is a 53-year-old male with past medical history significant for history of end-stage renal disease, anemia of chronic kidney disease, renal osteodystrophy hypertension, diabetes, peripheral vascular disease who presented to [facility] complaining of elevated blood sugar. The patient upon arrival in the ER, found to have temperature of 98 degrees, blood pressure was 164/82, and a pulse rate of 98. The patient found to have an infected left toe, mild elevation in the potassium. Consequently, a Podiatry consultation was placed. The patient was scheduled to go for surgery this morning. Prior to surgery, the patient was found to be hyperkalemic. I was called for treatment for dialysis. PAST MEDICAL HISTORY: 1. End-stage renal disease. 2. Anemia of chronic kidney disease. 3. Renal osteodystrophy. 4. Hypertension. 5. Diabetes. 6. Peripheral vascular disease. 7. History of . FAMILY HISTORY: Positive for history of diabetes. SOCIAL HISTORY: There is no history of tobacco, alcohol, or drug use. ALLERGIES: No known drug allergies. MEDICATIONS: Medication list was reviewed. REVIEW OF SYSTEMS: GENERAL: He complained of generalized weakness. Denied any fever, chills, or night sweats. HEAD AND NECK: Denies any dysphagia, odynophagia, blurry vision, headache, or neck stiffness. PULMONARY: No shortness of breath, cough or sputum. CARDIOVASCULAR: No chest pain or palpitations. GASTROINTESTINAL: No nausea or vomiting. GENITOURINARY: Denies any dysuria, frequency, or hematuria. MUSCULOSKELETAL: Complaining of left fifth toe ulceration for past two weeks. PHYSICAL EXAMINATION: VITAL SIGNS: The patient had a temperature of 98 degrees, blood pressure of 142/68, pulse rate of 88, and respiratory rate of 18. HEAD AND NECK: No JVD. No LAD. No thyromegaly. Extraocular movement intact. Pupils are reactive to light and accommodation. LUNGS: Clear to auscultation. CARDIAC: Regular rate and rhythm. S1 and S2. No murmur. No rubs. ABDOMEN: Soft, nontender, and nondistended. No organomegaly. EXTREMITIES: Left toe is in dressing. No edema, no clubbing, or cyanosis. LABORATORY AND DIAGNOSTIC DATA: Lab value reviewed. WBC count of 18,000, hemoglobin 11.2, hematocrit of 34, and platelet count of 336. Chemistry revealed sodium 134, potassium of 5, chloride 94, bicarb 29, BUN of 68, creatinine of 6.9, glucose of 462, calcium of 9.1. AST and ALT less than 5 and 6, alkaline phosphatase of 164. ASSESSMENT: 1. End-stage renal disease. 2. Hyperkalemia. 3. Anemia of chronic kidney disease. 4. Uncontrolled diabetes. 5. Gangrene of the left toe. 6. Hypertension. PLAN: Dialysis to be done prior to surgery. Check the calcium, phosphorous, and PTH for evaluation of renal osteodystrophy. Hold Epogen since hemoglobin on the target level. Check iron panel, broad-spectrum antibiotics. I would like to thank, Dr. Toussaint, for allowing me to participate in the care of this patient. Tessa Schwartz M.D. DR: Argelia JOB#: [id number] CC:
--- NOTE | 2019-03-19 17:49 | Podiatric Progress Note ---
Assessment/Plan Patient Mahsa Claire is a 53 year old male who was admitted on Mar 15, 2019 at 22: 03 with Assessment/Plan A/ 1) Gas gangrene left foot 2) Sepsis 3) ESRD on HD 4) Uncontrolled DM 5) DM with neuropathy 6) PVD 7) h/o noncompliance P/ 1) POD #2. Dressings changed by nurses yesterday and I changed dressings today. Foot does not appear to be improving. Advised patient that limb salvage may be unlikely and he may need BKA. He understands but wishes to continue to proceed with limb salvage. 2) Cont abx per ID 3) Transfer to [facility] pending for angio 4) Will follow Subjective Allergies: Coded Allergies: NO KNOWN ALLERGIES (Verified Allergy, Unknown, 12/04/17) Subjective Patient states that he feels better but continues to have nausea. Objective Exam Last 24 Hour Vital Signs Date Time Temp Pulse Resp B/P (MAP) Pulse Ox O2 Delivery O2 Flow Rate FiO2 03/19/19 12:00 98.2 101 19 140/84 (102) 98 03/19/19 09:19 148/87 03/19/19 09:19 104 148/87 03/19/19 09:00 Room Air 03/19/19 08:00 98.0 104 19 148/87 (107) 100 03/19/19 04:00 98.4 95 18 151/85 (107) 97 03/18/19 23:52 97.5 85 17 125/85 (98) 97 03/18/19 20:03 Room Air 03/18/19 20:00 98.0 92 18 163/95 (117) 97 Laboratory Tests Test 03/19/19 05:15 03/19/19 09:30 White Blood Count 22.2 K/UL (4.8-10.8) *H Red Blood Count 3.52 M/UL (4.70-6.10) L Hemoglobin 10.9 G/DL (14.2-18.0) L Hematocrit 33.3 % (42.0-52.0) L Mean Corpuscular Volume 95 FL (80-99) Mean Corpuscular Hemoglobin 31.0 PG (27.0-31.0) Mean Corpuscular Hemoglobin Concent 32.7 G/DL (32.0-36.0) Red Cell Distribution Width 15.9 % (11.6-14.8) H Platelet Count 336 K/UL (150-450) Mean Platelet Volume 7.6 FL (6.5-10.1) Neutrophils (%) (Auto) % (45.0-75.0) Lymphocytes (%) (Auto) % (20.0-45.0) Monocytes (%) (Auto) % (1.0-10.0) Eosinophils (%) (Auto) % (0.0-3.0) Basophils (%) (Auto) % (0.0-2.0) Differential Total Cells Counted 100 Neutrophils % (Manual) 91 % (45-75) H Lymphocytes % (Manual) 2 % (20-45) L Monocytes % (Manual) 6 % (1-10) Eosinophils % (Manual) 1 % (0-3) Basophils % (Manual) 0 % (0-2) Band Neutrophils 0 % (0-8) Platelet Estimate Adequate Platelet Morphology Normal Hypochromasia 1+ Anisocytosis 1+ Sodium Level 129 MMOL/L (136-145) L Potassium Level 3.2 MMOL/L (3.5-5.1) L Chloride Level 93 MMOL/L (98-107) L Carbon Dioxide Level 28 MMOL/L (21-32) Anion Gap 8 mmol/L (5-15) Blood Urea Nitrogen 53 mg/dL (7-18) H Creatinine 8.0 MG/DL (0.55-1.30) H Estimat Glomerular Filtration Rate 8.6 mL/min (>60) Glucose Level 196 MG/DL (74-106) H Calcium Level 9.0 MG/DL (8.5-10.1) Total Bilirubin 0.5 MG/DL (0.2-1.0) Aspartate Amino Transf (AST/SGOT) 8 U/L (15-37) L Alanine Aminotransferase (ALT/SGPT) < 6 U/L (12-78) L Alkaline Phosphatase 118 U/L (46-116) H Total Protein 7.1 G/DL (6.4-8.2) Albumin 1.7 G/DL (3.4-5.0) L Globulin 5.4 g/dL Albumin/Globulin Ratio 0.3 (1.0-2.7) L Random Vancomycin Level 38.0 ug/mL Prothrombin Time 10.7 SEC (9.30-11.50) Prothromb Time International Ratio 1.0 (0.9-1.1) Microbiology Date/Time Source Procedure Growth Status 03/15/19 21:36 Blood Blood Culture - Preliminary NO GROWTH AFTER 72 HOURS Resulted 03/15/19 21:25 Other(Specify in comment) Gram Stain - Final Resulted 03/15/19 21:25 Wound Culture - Preliminary Citrobacter Diversus Staphylococcus Aureus Usual Skin Jeri Resulted 03/16/19 01:30 Nasal Nares MRSA Culture - Final NO METHICILLIN RESISTANT STAPH AUREUS... Complete 03/17/19 10:20 Foot Left Gram Stain - Final Resulted 03/17/19 10:20 Aerobic Culture - Final Citrobacter Diversus Resulted 03/17/19 10:20 Foot Left Anaerobic Culture Pending Resulted Dermatological Dermatological Narrative Left foot - toes appear dusky. Wound appears necrotic again. Mild malodor is present and small amount of purulent drainage noted. Wound probes to calcaneus. Landon Lane DPM Mar 19, 2019 17:49
--- NOTE | 2019-03-19 17:58 | Diagnostic Imaging Report ---
Indication: Syncope and near syncope Technique: Grayscale and duplex images of the extracranial carotid arteries and vertebral arteries Comparison: 12/05/2017 Findings: Bilaterally, grayscale and duplex images demonstrate atherosclerotic plaquing resulting in less than 50% diameter stenosis. There is mild nonspecific elevation of flow velocities in the right common carotid artery. Internal carotid artery flow velocities are within normal limits. There is mild elevation of the left external carotid artery flow velocity. Doppler waveforms are normal. Vertebral arteries are patent and demonstrate antegrade flow findings are unchanged Impression: Less than 50% diameter stenosis bilaterally
--- NOTE | 2019-03-19 18:30 | Consultation ---
DATE OF CONSULTATION: 03/16/2019 CARDIOLOGY CONSULTATION CONSULTING PHYSICIAN: Lizandro Falcon M.D. REFERRING PHYSICIAN: Candida Toussaint M.D. REASON FOR CONSULTATION: Management of hypertension crisis. HISTORY OF PRESENT ILLNESS: The patient is a very unfortunate 53-year-old gentleman, who presents to the hospital with complaints of high blood sugar, which was noticed at home with associated generalized weakness, tiredness, decreased appetite, and also worsening of pain in his left toe that has been going on for about two weeks. The patient has diabetic foot ulcer that he has been dealing with the past couple of weeks. The patient states that there is no sensation of the toes. At the time of arrival to this facility, initial blood pressure was 164/82 mmHg and heart rate of 98. He had a 12-lead electrocardiogram, which showed evidence of sinus rhythm at a rate of 97 with no acute ischemic changes. In the emergency department, evaluation of the blood showed severe hyperglycemia with value of 745. There was also electrolyte derangement including sodium of 128, potassium was 5.8, BUN and creatinine are 33 and 6.1. He is known to have end-stage renal disease. A 12-lead electrocardiogram was significant for a left ventricular ejection fraction approximately 65%, mild LVH, and normal right ventricular systolic pressure measured at 15 mmHg. He was found to have sepsis with also elevated WBC count of 27,000 with 4% bandemia and left shift, likely due to infected left toes. The patient was admitted to Med/Surg unit. Cardiology consultation was made. I requested Dr. Toussaint for evaluation and management of hypertension crisis. Of note, blood pressure upon arrival to the floor went up to 204/84 mmHg. In the outpatient setting, the patient takes amlodipine 5 mg, hydralazine 50 mg three times a day, metoprolol 200 mg a day, and valsartan 160 mg daily for blood pressure treatment. PAST MEDICAL HISTORY: Includes: 1. End-stage renal disease, on hemodialysis, on Tuesdays, , Saturdays. 2. Diabetes mellitus. 3. Hypertension. 4. Hyperlipidemia. PAST SURGICAL HISTORY: Status post AV shunt in the right arm. Also, right transmetatarsal amputation. ALLERGIES: No known drug allergies. FAMILY HISTORY: No premature coronary artery disease in the first-degree relatives. SOCIAL HISTORY: Denies any tobacco, alcohol, or illicit drug use. MEDICATIONS: List of medications at home includes amlodipine 5 mg p.o. daily, aspirin 81 mg p.o. daily, atorvastatin 10 mg p.o. at bedtime, cefepime 500 mg IV piggyback q.24 h., Procrit 5000 units subcutaneous on Tuesday, Tuesday, and Tuesday, Lexapro 10 mg p.o. daily, Diflucan 200 mg daily, hydralazine 50 mg q.8 h., isosorbide mononitrate 30 mg p.o. daily, metoprolol 300 mg p.o. daily, pravastatin 40 mg p.o. at bedtime, promethazine and codeine 6.25-10 5 mL p.o. q.12 h., Renvela 800 mg three times a day, Velphoro 500 mg p.o. daily, Restoril 15 mg at bedtime p.r.n. insomnia, valsartan 160 mg p.o. daily. REVIEW OF SYSTEMS: HEENT: Denies any headache, diplopia, or blurred vision. CONSTITUTIONAL: Denies any fever, chills, night sweats, or weight loss. CARDIOVASCULAR: Denies any chest pain, shortness breath, PND, orthopnea, or leg swelling. PULMONARY: Denies any cough, hemoptysis, wheezing. GASTROINTESTINAL: Denies any nausea, vomiting, diarrhea, constipation, abdominal pain, or GI bleed. GENITOURINARY: On dialysis, three days a week. ENDOCRINE: Has diabetes mellitus, uncontrolled with evidence of hyperglycemia. NEUROLOGY: Denies any motor dysfunction. There is decreased sensation of both feet. MUSCULOSKELETAL: Left foot ulceration. ENDOCRINE: Increased thirst and polyuria. PHYSICAL EXAMINATION: VITAL SIGNS: Blood pressure was 204/84 mmHg, heart rate was 104, temperature 98.3 degrees Fahrenheit, respiration of 18, O2 saturation 100% on room air. GENERAL: The patient is a very unfortunate 53-year-old gentleman, in no apparent respiratory distress. Alert and oriented x4. HEENT: Atraumatic, normocephalic. Anicteric. Pupils are equal, round, and reactive to light and accommodation. Extraocular muscles intact. NECK: JVP less than 5 cm. No carotid bruit. Carotid upstroke is 2+ bilaterally. CARDIOVASCULAR: Normal S1, S2. Regular rate and rhythm. Tachycardic. No murmurs, gallops, or rubs. PMI is at fourth intercostal space in the midclavicular line. LUNGS: Clear to auscultation bilaterally. ABDOMEN: Soft, nontender, and nondistended. No hepatosplenomegaly. Positive bowel sounds. EXTREMITIES: There is right third transmetatarsal amputation left foot, second toe shows wet gangrene that extends to the sole of the foot. There is no dorsalis pedis pulsation. LABORATORY FINDINGS: WBC is 27, hemoglobin of 12.4, hematocrit of 38, platelet count 357, 82% neutrophils, and 4% bandemia. Sodium was 128, potassium is 5.8, chloride 91, bicarbonate 29, BUN of 33, creatinine 6.1, glucose is 745. Hemoglobin A1c was 11.6 and calcium is 10.3. INR is 1.1. X-ray of the left foot shows possibility of necrotizing infection in the left foot due to . ASSESSMENT AND PLAN: 1. Hypertension crisis. We have to optimize the patient's current blood pressure regimen including amlodipine to 10 mg p.o. daily, valsartan to 320 mg daily and continuation of metoprolol, and clonidine 0.1 mg p.o. t.i.d. as needed for breakthrough hypertension. Echocardiogram has revealed normal LV systolic function with LVEF of approximately 55% to 60%. 2. End-stage renal disease, on hemodialysis. 3. History of diabetes mellitus, uncontrolled with severely elevated hemoglobin A1c, recommend endocrine consultation. 4. Diabetic foot ulcer with evidence of necrotizing infection of the left foot, impending amputation of the left foot. 5. History of PVD, status post right transmetatarsal amputation. I would like to thank, Dr. Toussaint, for allowing me to participate in the care of this patient. Lizandro Falcon M.D. DR: LINDA JOB#: [id number] CC:
--- NOTE | 2019-03-19 18:42 | Diagnostic Imaging Report ---
Indication: Left foot osteomyelitis and gangrene, history of diabetes and smoking Technique: Grayscale and duplex images of the bilateral lower surely arteries Comparison: 12/06/2017 Findings: On the right, of the common femoral and superficial femoral artery demonstrate biphasic or triphasic Doppler waveforms with sharp systolic peaks. At the level of the mid superficial femoral artery, there is some dampening of the waveforms, which are monophasic. Anterior tibial artery waveforms are further somewhat dampened, borderline monophasic with velocities and proximally. Flow velocities in the common femoral artery are elevated, peak systolic velocity 261 cm/s. Findings are similar to that seen previously On the left, common femoral artery waveforms demonstrate sharp systolic peaks and are biphasic. Waveforms within the superficial femoral artery are somewhat dampened and monophasic. There is further dampening of the waveform at the level of popliteal artery. Waveforms within the posterior tibial, peroneal, and dorsalis pedis arteries are markedly dampened. No focal flow velocity elevation demonstrated. When compared to prior exam, there is interim marked progression of disease Impression: Possibly significant stenosis of the right common femoral artery and or superficial femoral artery origin Suspect borderline significant femoral popliteal and/or tibial stenotic disease on the right; gradual slight dampening of distal waveforms is nonfocal Findings suggestive of diffuse significant stenotic disease within the superficial femoral and popliteal artery and likely significant proximal tibial vessel stenoses; distal waveforms are severely dampened. Findings have progressed significantly since the previous exam
[2019-03-19] MEDS ORDERED: Meropenem 500 MG in NS 55 ML IVPB SCH (22:00)
--- NOTE | 2019-03-19 23:51 | Cardiology Progress Note ---
Assessment/Plan Assessment/Plan 1. HTN crisis, optimize amlodipine and losartan, clonidine PRN for breakthrough HTN. 2D echo reveals normal LV systolic function with LVEF at 65%. 2. Left foot gas gangrene, s/p amputation, POD #2, has a bed at [facility] for revascularization of left LE by Dr. Alexis. 3. Hx of PVD, s/p right TMT amputation. Continue ASA and statins. 4. ESRD 5. Sepsis due to infected 2nd toe. 6. Uncontrolled DM, continue [id number] and ASA. Subjective Subjective No cardiac events reported. s/p left toe amputation, POD # 2. Has a bed at [facility] for revascularization by Dr. Alexis. Objective Last 24 Hour Vital Signs Date Time Temp Pulse Resp B/P (MAP) Pulse Ox O2 Delivery O2 Flow Rate FiO2 03/19/19 12:00 98.2 101 19 140/84 (102) 98 03/19/19 09:19 148/87 03/19/19 09:19 104 148/87 03/19/19 09:00 Room Air 03/19/19 08:00 98.0 104 19 148/87 (107) 100 03/19/19 04:00 98.4 95 18 151/85 (107) 97 03/18/19 23:52 97.5 85 17 125/85 (98) 97 Intake and Output 03/18/19 03/19/19 19:00 07:00 Intake Total 830 ml 360 ml Balance 830 ml 360 ml Intake Oral 720 ml 360 ml IV Total 110 ml # Bowel Movements 1 CXR: reviewed 2D Echo: LVEF 65%, Mild LVH, RVSP 15 mmHg Laboratory Tests Test 03/19/19 05:15 03/19/19 09:30 White Blood Count 22.2 K/UL (4.8-10.8) *H Red Blood Count 3.52 M/UL (4.70-6.10) L Hemoglobin 10.9 G/DL (14.2-18.0) L Hematocrit 33.3 % (42.0-52.0) L Mean Corpuscular Volume 95 FL (80-99) Mean Corpuscular Hemoglobin 31.0 PG (27.0-31.0) Mean Corpuscular Hemoglobin Concent 32.7 G/DL (32.0-36.0) Red Cell Distribution Width 15.9 % (11.6-14.8) H Platelet Count 336 K/UL (150-450) Mean Platelet Volume 7.6 FL (6.5-10.1) Neutrophils (%) (Auto) % (45.0-75.0) Lymphocytes (%) (Auto) % (20.0-45.0) Monocytes (%) (Auto) % (1.0-10.0) Eosinophils (%) (Auto) % (0.0-3.0) Basophils (%) (Auto) % (0.0-2.0) Differential Total Cells Counted 100 Neutrophils % (Manual) 91 % (45-75) H Lymphocytes % (Manual) 2 % (20-45) L Monocytes % (Manual) 6 % (1-10) Eosinophils % (Manual) 1 % (0-3) Basophils % (Manual) 0 % (0-2) Band Neutrophils 0 % (0-8) Platelet Estimate Adequate Platelet Morphology Normal Hypochromasia 1+ Anisocytosis 1+ Sodium Level 129 MMOL/L (136-145) L Potassium Level 3.2 MMOL/L (3.5-5.1) L Chloride Level 93 MMOL/L (98-107) L Carbon Dioxide Level 28 MMOL/L (21-32) Anion Gap 8 mmol/L (5-15) Blood Urea Nitrogen 53 mg/dL (7-18) H Creatinine 8.0 MG/DL (0.55-1.30) H Estimat Glomerular Filtration Rate 8.6 mL/min (>60) Glucose Level 196 MG/DL (74-106) H Calcium Level 9.0 MG/DL (8.5-10.1) Total Bilirubin 0.5 MG/DL (0.2-1.0) Aspartate Amino Transf (AST/SGOT) 8 U/L (15-37) L Alanine Aminotransferase (ALT/SGPT) < 6 U/L (12-78) L Alkaline Phosphatase 118 U/L (46-116) H Total Protein 7.1 G/DL (6.4-8.2) Albumin 1.7 G/DL (3.4-5.0) L Globulin 5.4 g/dL Albumin/Globulin Ratio 0.3 (1.0-2.7) L Random Vancomycin Level 38.0 ug/mL Prothrombin Time 10.7 SEC (9.30-11.50) Prothromb Time International Ratio 1.0 (0.9-1.1) Microbiology Date/Time Source Procedure Growth Status 03/17/19 10:20 Foot Left Gram Stain - Final Resulted 03/17/19 10:20 Aerobic Culture - Final Citrobacter Diversus Resulted 03/17/19 10:20 Foot Left Anaerobic Culture Pending Resulted Objective HEENT: normocephalic, atraumatic, PERRL, bilateral eye EOMI Neck: JVP <5 cm, no carotid bruit. Respiratory: normal breath sounds Cardiovascular: regular rate and rhythm, no murmurs, gallops or rubs. Gastrointestinal: normal bowel sounds, non tender, no mass, no organomegaly, no bruit, non-distended Musculoskeletal: No edema, clubbing or cyanosis, Right foot with transmetatarsal amputation. Left foot: Second toe amputated. Extended to the sole of the foot. Unable to palpate a pulse. Lizandro Falcon MD Mar 19, 2019 23:51
--- NOTE | 2019-03-20 11:31 | Discharge Summary ---
Discharge Summary Discharge Summary _ DATE OF ADMISSION: 03/15/2019 DATE OF DISCHARGE: 03/19/2019 DISCHARGED BY: Dr. Toussaint REASON FOR ADMISSION: 53 years old male with past medical history of hypertension, diabetes mellitus, end-stage renal disease, on hemodialysis, presented with elevated blood sugar. Patient reported feeling weak and tired. No fever or chills, no nausea, no vomiting. Patient reported decreased appetite. Patient reported problem with a left foot for 2 weeks ; he reported no sensation in the area and minimal pain. No treatment was done. Upon evaluation vital signs revealed elevated blood pressure 164/82. Physical examination revealed right foot with a transmetatarsal amputation and left foot second toe showed wet gangrene , extending to the sole of the foot . X-ray of the left foot revealed large amount of gas within the plantar soft tissue of the foot , extending back to the level of the calcaneus. The possibility of necrotizing infection was not excluded. Laboratory work-up revealed significant leukocytosis WBC 27, hemoglobin 12.4 hematocrit 38. Glucose 745. Sodium 128, potassium 5.8. BUN 33, creatinine 6.1. Anion gap 8. Patient subsequently admitted for sepsis, likely due to left foot gangrene and hyperglycemia. CONSULTANTS: garage mechanic Dr. Falcon ID specialist Dr. Ceja horse farm manager Dr. Schwartz vascular surgeon Dr Alexis etl data architect Dr. Ramos resident programs assistant/oncologist Dr. Reis associate technician Dr. Godinez HOSPITAL COURSE Patient admitted to medical surgical floor and started on empiric antibiotics as per ID specialist recommendation. Wound culture revealed Citrobacter, Staph aureus. Blood culture, initial and repeated ,were negative. Venous duplex bilateral lower extremity revealed no evidence of acute DVT. Per ID specialist, due to finding of the gas in the plantar area .suspected deep necrotizing fasciitis. Arterial duplex bilateral lower extremity revealed significant stenosis right common femoral artery and superficial femoral artery. Suspected borderline significant femoral-popliteal and/or tibial stenotic disease on the right. Findings were suggestive of diffuse significant stenotic disease with a superficial femoral and popliteal artery and likely significant proximal tibial vessel stenosis. Distal waveforms were severely dampened. Findings have progressed significantly since the previous exam. Carotid duplex revealed less than 50% stenosis bilaterally. Title 1 Tutor and vascular surgeon followed. Patient undergone amputation of left second toe with metatarsal head, incision and drainage deep to fascia left foot, excisional debridement to the level of bone left foot. Left foot aerobic culture from surgery revealed Citrobacter. Wound care further provided as per etl data architect recommendation. Vascular surgeon seen and evaluated patient. Vascular surgeon recommended medical optimization along with amputation and I& D of abscess of the left second toe. Once medically cleared and sepsis controlled, patient will need left leg angiogram to assess for revascularization. Patient had high risk of needing higher left leg amputation due to the extent of infection. Physical exam revealed weak +2 femoral pulses, popliteal and DP pulses and absent PT pulses. At the time of this dictation , operative biopsy results still pending. Continue antibiotic as per ID recommendation to complete the course at the facility. Hemodialysis provided as per horse farm manager recommendation with close monitoring of volumes, renal parameters and electrolytes. Visual Presentation Manager seen and evaluated patient. Hemoglobin A1c 11.6 , clearly not at goal. Blood sugar was managed long acting Levemir twice a day, pre-meal short acting Novolog and sliding scale of insulin as needed. Diabetic diet provided. Patient was counseled on compliance with medication regimen. Steward/Stewardess Dining Room followed. Patient had hypertensive crisis. Blood pressure was managed with calcium channel fitz and ARB. Blood pressure improved. Antiplatelet therapy with aspirin and statin continued. DVT and GI prophylaxis provided. 2D echo revealed preserved ejection fraction of 65% with mild left ventricular hypertrophy. No evidence of wall motion abnormality. Right ventricular systolic pressure of 15. Steward/Stewardess Dining Room recommended transfer to [facility] for revascularization of left lower extremity. Patient clinically stabilized and was ready for transfer to [facility]. FINAL DIAGNOSES: Sepsis Gas gangrene left foot with gangrene at left second toe and deep abscess Osteomyelitis of left foot End-stage renal disease , on hemodialysis Hyperglycemia due to diabetes mellitus Diabetes mellitus [id number] Diabetic neuropathy Hypertension Peripheral vascular disease Anemia of chronic kidney disease Hyperkalemia Status post amputation of left second toe with the metatarsal head; incision and drainage deep to fascia, left foot; excisional debridement to the level of bone, left foot Current smoker History of right foot TMA amputation DISCHARGE MEDICATIONS: See Medication Reconciliation list. DISCHARGE INSTRUCTIONS: Patient was transferred to [facility] for revascularization. I have been assigned to dictate discharge summary for this account. I was not involved in the patient's management. Yamilka Broussard NP Mar 20, 2019 11:30
== END 2019-03-19 15:42 | disposition short-term general hospital (02) | DRG 853 ==
LOC: EDBD 21:13 → EMR 21:30 → 4E 22:03 → EDBEDREQ 22:58 → 4E 03-16 00:22
PROC: 0Y6S0Z0 Detachment at Left 2nd Toe, Complete, Open Approach (ICD-10-PCS; principal; 2019-03-17 09:30)
PROC: 0J9R0ZZ Drainage of Left Foot Subcutaneous Tissue and Fascia, Open Approach (ICD-10-PCS; principal; 2019-03-17 09:30)
PROC: 0QBM0ZZ Excision of Left Tarsal, Open Approach (ICD-10-PCS; principal; 2019-03-17 09:30)
DX: A41.9 Sepsis, unspecified organism (principal); N18.6 End stage renal disease; A48.0 Gas gangrene; I12.0 Hypertensive chronic kidney disease with stage 5 chronic kidney disease or end stage renal disease; I16.9 Hypertensive crisis, unspecified; M86.8X7 Other osteomyelitis, ankle and foot; E11.52 Type 2 diabetes mellitus with diabetic peripheral angiopathy with gangrene; L02.612 Cutaneous abscess of left foot; L03.116 Cellulitis of left lower limb; Z79.82 Long term (current) use of aspirin; Z99.2 Dependence on renal dialysis; E11.69 Type 2 diabetes mellitus with other specified complication; E11.65 Type 2 diabetes mellitus with hyperglycemia; E11.22 Type 2 diabetes mellitus with diabetic chronic kidney disease; E11.40 Type 2 diabetes mellitus with diabetic neuropathy, unspecified; F17.200 Nicotine dependence, unspecified, uncomplicated; Z89.421 Acquired absence of other right toe(s); D64.9 Anemia, unspecified; E87.5 Hyperkalemia
CPT/HCPCS: 36415; 80048; 80053; 80202; 82962; 83036; 85007; 85025; 85610; 85730; 86703; 86705; 86709; 86803; 87040; 87070; 87075; 87081; 87181; 87205; 87340; 93306; 93880; 93925; 93970; 94003; 94150; 96365; 96367; 96368; 96375; 96376; 99291; J1815; J7030; S0077; S5561

== ENCOUNTER 2019-05-31 08:57 | Inpatient (IN) | payer MEDICARE, MEDICAID ==
[~2019-05-31] VITALS: Ht 172.7 cm; Wt 79.4 kg
[2019-05-31 09:00] VITALS: BP 182/111
[2019-05-31] MEDS ORDERED: Nitroglycerin 2% oint pkt TOPIC ONE ×2 (09:00→09:17)
--- NOTE | 2019-05-31 09:00 | NUR ---
ED Nurse Note: Pt brought in by ambulance from [facility] d/t SOB since this morning. O2 saturation 85% on room air. 91% on nonrebreather. Respirations even, but labored. Pt A+Ox4, having difficulty speaking in full sentences. Pt receives dialysis T// and last received dialysis on tuesday. HR is sinus and tachy @ 124. BP elevated @ 182/113. Pt is afebrile @ 97.7. Pt placed on monitor. IV inserted and blood drawn.
--- NOTE | 2019-05-31 09:01 | NUR ---
ED Nurse Note: Per ED MD, do not administer Lasix because pt is anuric
--- NOTE | 2019-05-31 09:10 | Emergency Room Report ---
History of Present Illness General Chief Complaint: Dyspnea/Respdistress Source: Patient Present Illness HPI 53-year-old male history of dialysis Tuesday and Tuesday receive dialysis Tuesday was due for dialysis today however transportation made it difficult he endorses shortness of breath no aggravating relieving factors severity is severe, constant patient also reports that his roommate is being evaluated for high fevers patient states himself he feels fine except he is short of breath and feels volume overloaded patient was brought in by EMS on nonrebreather no fevers chills chest pain COVID-19 risk:Contact w/high r: No COVID-19 risk:Travel to affect: No Has patient experienced lopez: Yes Coronavirus symptoms experienc: Fever (T>100.4F or >38C), Shortness of Breath, Cough Allergies: Coded Allergies: NO KNOWN ALLERGIES (Verified Allergy, Unknown, 12/04/17) Patient History Past Medical History: see triage record Reviewed Nursing Documentation: PMH: Agreed; PSxH: Agreed Nursing Documentation-PMH Hx Hypertension: Yes Hx Diabetes: Yes Hx Cancer: No Hx Gastrointestinal Problems: No Hx Dialysis: Yes - ,,sat shunt on right arm History Of Psychiatric Problem: Yes - major depression Hx Neurological Problems: No Hx Peripheral Neuropathy: Yes Review of Systems All Other Systems: negative except mentioned in HPI Physical Exam Vital Signs Date Time Temp Pulse Resp B/P (MAP) Pulse Ox O2 Delivery O2 Flow Rate FiO2 05/31/19 08:52 97.7 120 22 180/100 (126) 94 Non-Rebreather Sp02 EP Interpretation: reviewed, abnormal - Reduced hypoxic tachypneic General Appearance: alert, severe distress Head: normocephalic, atraumatic Eyes: bilateral eye PERRL, bilateral eye EOMI ENT: uvula midline, moist mucus membranes Neck: supple, thyroid normal, supple/symm/no masses Respiratory: accessory muscle use, crackles, rales Cardiovascular #1: normal peripheral pulses, no edema, no gallop, no murmur, tachycardia Gastrointestinal: non tender, soft, no guarding, no rebound Musculoskeletal: normal inspection Neurologic: alert, oriented x3 Psychiatric: mood/affect normal Skin: no rash, warm/dry Procedures Critical Care Time Critical Care Time Given the critical condition in which the patient arrived, the patient was immediately assessed by myself and the nurse, and cardiac monitoring initiated due to the potential for rapid decompensation of the patient's clinical condition. During the course of the patient's stay, I spent a considerable amount of time at the bedside performing serial re-evaluations of the patient's hemodynamic and clinical status because of the recognized potential threat to life or limb in this condition. I then had a chance to review not only all of the available current laboratory and radiographic studies obtained today, but I also reviewed old records available to me at the time. Additionally, any ancillary information available including reefer engineer records were reviewed. Sequential vital signs were obtained. Critical Care time of 33 minutes was performed exclusive of billable procedures. Medical Decision Making Diagnostic Impression: Primary Impression: Respiratory distress Additional Impression: Pulmonary edema Qualified Codes: J81.0 - Acute pulmonary edema ER Course 53-year-old male presents with acute respiratory distress concerning for pulmonary edema in the setting of missed dialysis differential diagnosis also includes pneumonia, COVID will start patient on BiPAP, Lasix, nitro Patient to be admitted to stepdown unit Patient admitted to Dr. Gifford under Dr. Ledesma Laboratory Tests Test 05/31/19 09:15 05/31/19 09:55 White Blood Count 13.9 K/UL (4.8-10.8) H Red Blood Count 2.76 M/UL (4.70-6.10) L Hemoglobin 8.6 G/DL (14.2-18.0) L Hematocrit 26.4 % (42.0-52.0) L Mean Corpuscular Volume 95 FL (80-99) Mean Corpuscular Hemoglobin 31.3 PG (27.0-31.0) H Mean Corpuscular Hemoglobin Concent 32.8 G/DL (32.0-36.0) Red Cell Distribution Width 18.8 % (11.6-14.8) H Platelet Count 182 K/UL (150-450) Mean Platelet Volume 6.4 FL (6.5-10.1) L Neutrophils (%) (Auto) % (45.0-75.0) Lymphocytes (%) (Auto) % (20.0-45.0) Monocytes (%) (Auto) % (1.0-10.0) Eosinophils (%) (Auto) % (0.0-3.0) Basophils (%) (Auto) % (0.0-2.0) Differential Total Cells Counted 100 Neutrophils % (Manual) 87 % (45-75) H Lymphocytes % (Manual) 7 % (20-45) L Monocytes % (Manual) 6 % (1-10) Eosinophils % (Manual) 0 % (0-3) Basophils % (Manual) 0 % (0-2) Band Neutrophils 0 % (0-8) Platelet Estimate Adequate Platelet Morphology Normal Hypochromasia 1+ Anisocytosis 1+ Sodium Level 142 MMOL/L (136-145) Potassium Level 5.0 MMOL/L (3.5-5.1) Chloride Level 100 MMOL/L (98-107) Carbon Dioxide Level 21 MMOL/L (21-32) Anion Gap 21 mmol/L (5-15) H Blood Urea Nitrogen 60 mg/dL (7-18) H Creatinine 9.2 MG/DL (0.55-1.30) H Estimated Glomerular Filtration Rate 7.4 mL/min (>60) Glucose Level 78 MG/DL (74-106) Calcium Level 9.1 MG/DL (8.5-10.1) Total Bilirubin 0.8 MG/DL (0.2-1.0) Aspartate Amino Transferase (AST) 116 U/L (15-37) H Alanine Aminotransferase (ALT) 84 U/L (12-78) H Alkaline Phosphatase 173 U/L (46-116) H Troponin I 0.155 ng/mL (0.000-0.056) Pro-B-Type Natriuretic Peptide 97264 pg/mL (0-125) H Total Protein 8.9 G/DL (6.4-8.2) H Albumin 3.7 G/DL (3.4-5.0) Globulin 5.2 g/dL Albumin/Globulin Ratio 0.7 (1.0-2.7) L Lipase 84 U/L (73-393) Arterial Blood pH 7.387 (7.350-7.450) Arterial Blood Partial Pressure CO2 34.5 mmHg (35.0-45.0) L Arterial Blood Partial Pressure O2 52.5 mmHg (75.0-100.0) L Arterial Blood HCO3 20.3 mmol/L (22.0-26.0) L Arterial Blood Oxygen Saturation 82.2 % (95-100) *L Arterial Blood Base Excess -4.2 (-2-2) L Ruperto Test Positive EKG Diagnostic Results EKG Time: 09:12 EP Interpretation: Sinus tachycardia, rate 121, QTc 550, no acute ST elevations , left axis dev Rhythm Strip Diag. Results Rhythm Strip Time: 09:13 EP Interpretation: yes Rate: 122 Rhythm: no PVC's, no ectopy, other - Sinus tachycardia Chest X-Ray Diagnostic Results Chest X-Ray Diagnostic Results : Chest X-Ray Ordered: Yes # of Views/Limited/Complete: 1 View Indication: Shortness of Breath EP Interpretation: Yes Interpretation: other - Ase pulmonary edema Impression: Other - Pulmonary edema Electronically Signed by: Michael Garcia MD Last Vital Signs Date Time Temp Pulse Resp B/P (MAP) Pulse Ox O2 Delivery O2 Flow Rate FiO2 05/31/19 08:52 97.7 120 22 180/100 (126) 94 Non-Rebreather Disposition: ADMITTED INPATIENT Condition: Critical Michael Garcia MD May 31, 2019 09:10
[2019-05-31] MEDS ORDERED: TRAZODONE HCL150 MG ORAL (09:13)
[2019-05-31] MEDS ORDERED: CATAPRES0.1 MG ORAL (09:13)
[2019-05-31] MEDS ORDERED: CRANBERRY450 M4 PO (09:13)
[2019-05-31] MEDS ORDERED: HUMALOG100 UNIT/1 SUBQ (09:13)
[2019-05-31] MEDS ORDERED: RENA-VITE TABL0.8 M1 PO (09:13)
[2019-05-31] MEDS ORDERED: LANTUS SOL100 UNIT/1 SUBQ (09:13)
[2019-05-31] MEDS ORDERED: FOLIC ACID1 MG ORAL (09:13)
[2019-05-31] MEDS ORDERED: VITAMIN D310 MC1 PO (09:13)
[2019-05-31] MEDS ORDERED: PROTONIX40 MG ORAL (09:13)
[2019-05-31] MEDS ORDERED: COLACE100 MG ORAL (09:13)
[2019-05-31] MEDS ORDERED: NORCO 5-325 TA1 EAC1 ORAL (09:13)
[2019-05-31] MEDS ORDERED: AMLODIPINE BESY10 MG ORAL (09:13)
[2019-05-31] MEDS ORDERED: ZINC50 M1 ORAL (09:13)
[2019-05-31] MEDS ORDERED: MULTIVITAMINS1 EA13 ORAL (09:13)
[2019-05-31] MEDS ORDERED: COZAAR50 MG ORAL (09:13)
[2019-05-31] MEDS ORDERED: PLAVIX75 MG ORAL (09:13)
[2019-05-31] MEDS ORDERED: VITAMIN C500 M1 ORAL (09:13)
[2019-05-31] MEDS ORDERED: PRAVACHOL20 MG ORAL (09:13)
[2019-05-31] MEDS ORDERED: ASPIR 8181 MG ORAL (09:13)
--- NOTE | 2019-05-31 09:27 | NUR ---
ED Nurse Note: Pt placed on bipap with settings: 15/5 @ 35%
[2019-05-31 09:32] LABS: HEMATOCRIT 26.4 % (42.0-52.0); HEMOGLOBIN 8.6 G/DL (14.2-18.0); MEAN CORPUSCULAR VOLUME 95 FL (80-99); PLATELET COUNT 182 K/UL (150-450); RED BLOOD COUNT 2.76 M/UL (4.70-6.10); RED CELL DISTRIBUTION WIDTH 18.8 % (11.6-14.8); WHITE BLOOD COUNT 13.9 K/UL (4.8-10.8)
[2019-05-31 09:55] LABS: ANION GAP 21 mmol/L (5-15); BLOOD UREA NITROGEN 60 mg/dL (7-18); CALCIUM 9.1 MG/DL (8.5-10.1); CARBON DIOXIDE 21 MMOL/L (21-32); CHLORIDE 100 MMOL/L (98-107); CREATININE 9.2 MG/DL (0.55-1.30); SODIUM 142 MMOL/L (136-145)
[2019-05-31 09:59] LABS: ALANINE AMINOTRANSFERASE 84 U/L (12-78); ALBUMIN 3.7 G/DL (3.4-5.0); ALBUMIN/GLOBULIN RATIO 0.7 (1.0-2.7); ALKALINE PHOSPHATASE 173 U/L (46-116); ASPARTATE AMINO TRANSFERASE 116 U/L (15-37); BILIRUBIN,TOTAL 0.8 MG/DL (0.2-1.0)
[2019-05-31 11:00] VITALS: BP 179/102
--- NOTE | 2019-05-31 12:03 | Diagnostic Imaging Report ---
Indication: Dyspnea Comparison: 12/04/2017 A single view chest radiograph was obtained. Findings: Extensive airspace disease demonstrated within the lungs bilaterally. There is a central predominance with relative sparing of the lung periphery. The heart is enlarged. Bones are unremarkable. IMPRESSION: Severe bilateral airspace disease with central distribution. Consider acute left heart decompensation or CHF.
[2019-05-31 12:19] VITALS: BP 184/106
--- NOTE | 2019-05-31 12:30 | NUR ---
ED Nurse Note: Pt transported safely to SDU on the monitor.
[2019-05-31] MEDS ORDERED: Albuterol/Ipratropium 3ml neb HHN PRN (13:30)
[2019-05-31] MEDS ORDERED: Nitroglycerin Subl 0.4mg tab SL PRN (13:30)
[2019-05-31] MEDS ORDERED: DiphenhydrAMINE 25mg Tab ORAL PRN (13:30)
[2019-05-31] MEDS ORDERED: LORazepam 1mg tab ORAL PRN (13:30)
--- NOTE | 2019-05-31 13:37 | NUR ---
NURSE NOTES: CALLED MD LEVI FOR ADMIT ORDER, RECONCILE MEDICATIONS, DIET ORDER, CODE STATUS, WBC 13.9, TROPONIN 0.155. AWAITING CALL BACK.
[2019-05-31 16:00] VITALS: BP 140/97
[2019-05-31] MEDS ORDERED: Micafungin 100 MG in NS 110 ML IVPB SCH (16:00)
--- NOTE | 2019-05-31 16:55 | NUR ---
NURSE NOTES: Dr Danielle at bedside, ordered HD for patient today. [facility] dialysis was contacted, spoke with Megan.
--- NOTE | 2019-05-31 17:00 | Consultation ---
Consult Note Assessment/Plan [id number] Souleymane Danielle MD May 31, 2019 17:00
[2019-05-31] MEDS: NovoLOG Insulin Flexpen SUBQ SCH ×2 (17:18→20:22)
--- NOTE | 2019-05-31 18:00 | Consultation ---
DATE OF CONSULTATION: 05/31/2019 NEPHROLOGY CONSULTATION CONSULTING PHYSICIAN: Souleymane Danielle M.D. REFERRING PHYSICIAN: Torres Pool M.D. REASON FOR CONSULTATION: The patient with end-stage renal disease presented with some shortness of breath. HISTORY OF PRESENT ILLNESS: This is a very pleasant 53-year-old male that I know from previous admission in [facility]. He is a patient of Dr. Chip Cooper getting dialyzed three days a week on Tuesdays, , and Saturdays. Apparently he has been brought to the emergency room of [facility] and eventually was admitted because of the increasing shortness of breath while he was taken to the dialysis unit; however, instead of going to the dialysis unit, he was brought to [facility]. In the [place] emergency room, chest x-ray is showing evidence of CHF. He apparently has eaten more salt and over did as well as the fluid intake since Tuesday and has been admitted to the step-down unit, has been on BiPAP because of extreme shortness of breath. He has been sweating a lot also. I have been asked to see him and assess him for his hemodialysis needs. He is not able to utter the words since he is on BiPAP and he is very very short of breath. PAST MEDICAL HISTORY: Significant for end-stage renal disease, renal osteodystrophy, hypertension, type 2 diabetes mellitus, peripheral vascular disease. He has had gangrene of leg and recently has had BKA. PAST SURGICAL HISTORY: Status post AV fistula creation on the right arm, status post left BKA due to osteomyelitis and PVD with gangrene of the leg. SOCIAL HISTORY: He does not smoke. Does not drink alcohol at this point. MEDICATIONS: Includes amlodipine 10 mg p.o. daily, ascorbic acid 500 mg p.o. daily, aspirin 81 mg p.o. daily, cholecalciferol 1000 units p.o. daily, clonidine 0.1 mg every 6 hours p.r.n., Plavix 75 mg p.o. daily, folic acid 1 mg p.o. daily, Nephro-Brian one tablet by mouth daily, [place] 5/325 every 4 hours p.r.n., Lantus insulin 10 units subcutaneous at bedtime and Humalog 6 units subcutaneous t.i.d. before each meal, losartan 50 mg p.o. daily, Protonix 40 mg p.o. daily, pravastatin 20 mg p.o. daily, trazodone 150 mg p.o. at bedtime, zinc sulfate 220 mg p.o. daily. REVIEW OF SYSTEMS: He is on BiPAP. He is not able to give me a very good history. At this point, he is very short of breath. No chest pain. No chills. No fever. No nausea, vomiting, diarrhea. Blood sugars in the range of 150s. No skin rash or photosensitivity. No arthralgia or myalgia. The remainder of the review of systems has been essentially negative. PHYSICAL EXAMINATION: GENERAL: He does not seem to be in much acute distress. VITAL SIGNS: Blood pressure is 184/106, pulse of 126, respiration rate 36, temperature is 98 degrees Fahrenheit. HEENT: Head is atraumatic. Eyes, pupils reactive to light. No evidence of papilledema. Ears, canals are clear. Tympanic membranes are intact. Nose, nares are patent without any nasal discharge. He has a BiPAP mask in place. NECK: Supple. Jugular venous distention is very elevated. HEART: Regular rhythm. Tachycardic. LUNGS: Few crackles in both bases. ABDOMEN: Supple. Bowel sounds positive. No hepatosplenomegaly. EXTREMITIES: Lower extremity shows 1 to 2+ pedal edema. He has a left-sided BKA. LABORATORY DATA: Sodium 142, potassium 5.0, chloride 100, carbon dioxide 21, BUN is 60, creatinine is 9.2. AST is 116, ALT is 84, alkaline phosphatase 173. Albumin is 3.7. LFTs within normal range. WBC is 13.9, hemoglobin is 8.6, hematocrit 26.4, and platelets 182. IMPRESSION: 1. End-stage renal disease. 2. He is in fluid overloaded with significant respiratory failure on BiPAP now. 3. Pulmonary congestion. 4. In the presence of end-stage renal disease, he should not be on vitamin C at this high dose since vitamin C is metabolized into oxalate and is depositing all over the body including the lungs and the liver. PLAN: I am going to arrange for emergent hemodialysis today and I would recommend to discontinue vitamin C on this gentleman. At the end, I would like to thank you, Dr. Pool, for letting me be involved in the care of this very nice gentleman. Please do not hesitate to contact me if you have any questions. Souleymane Danielle M.D. DR: Soha JOB#: [id number] CC:
--- NOTE | 2019-05-31 19:10 | NUR ---
NURSE NOTES: Received patient and report from MARLENY Metz. Patient is observed resting in bed and remains alert and oriented x4. Pt is on Bipap 15/5 FiO2 35% with SOB noted at rest and during exertion. Pt noted to be ST on tele monitor with a current HR of 121 with no s/sx of acute distress. Pt currently denies pain. R AV Fistula noted; bruit and thrill noted and remain strong. L AC 20g IV catheter noted which remains asymptomatic, patent and intact. Skin remains intact but pt admitted with L BKA and right toes amputated. Pt remains resting in bed; Bed remains in the lowest position with the safety wheels engaged, call light within reach, side rails up x3 and bed alarm activated. Will continue plan of care. Will continue to monitor.
--- NOTE | 2019-05-31 19:24 | History and Physical ---
History of Present Illness General Date patient seen: May 31, 2019 Time patient seen: 17:00 Reason for Hospitalization: Dyspnea/Respdistress Present Illness HPI 53-year-old male with history of ESRD on HD, HTN, IDDM with neuropathy, HTN, HLD , prior CVA, PVD s/p L BKA (04/19/2019) who presented to the ED with severe dyspnea and chest pressure, no fever, chills, cough, foreign travel brought in by EMS on NRB mask and in ED started on NIPPV. CXR suggestive of aute pulmonary edema/fluid overload. He was given a dose of Lasix and referred zuhair admission to [facility]. Patient was treated with BiPAP with improvement in oxygenation on blood gas and presenting symptoms of dyspnea. Allergies: Coded Allergies: NO KNOWN ALLERGIES (Verified Allergy, Unknown, 12/04/17) Medication History Scheduled Amlodipine Besylate* (Amlodipine Besylate*), 10 MG ORAL DAILY, (Reported) Ascorbic Acid* (Vitamin C*), 500 MG ORAL DAILY, (Reported) Aspirin* (Aspir 81*), 81 MG ORAL DAILY, (Reported) Clonidine Hcl* (Catapres*), 0.1 MG ORAL EVERY 6 HOURS, (Reported) Clopidogrel Bisulfate* (Plavix*), 75 MG ORAL DAILY, (Reported) Docusate Sodium* (Colace*), 100 MG ORAL DAILY, (Reported) Folic Acid* (Folic Acid*), 1 MG ORAL DAILY, (Reported) Folic Acid/Vitamin B Comp W-C (Ashlie-Brian Tablet), 0.8 MG PO DAILY, (Reported) Insulin Glargine (Lantus), 10 SUBQ 8am, (Reported) Insulin Lispro (Humalog), 6 SUBQ TID, (Reported) Losartan Potassium* (Cozaar*), 100 MG ORAL DAILY, (Reported) Multivitamin with Minerals (Multivitamins with Minerals), 1 TAB ORAL DAILY, ( Reported) Pantoprazole* (Protonix*), 40 MG ORAL DAILY, (Reported) Pravastatin Sod* (Pravachol*), 80 MG ORAL BEDTIME, (Reported) Trazodone* (Trazodone*), 50 MG ORAL BEDTIME, (Reported) Scheduled PRN Hydrocodone Bit/Acetaminophen 5-325* ([place] 5-325 Tablet*), 1 TAB ORAL Q4H PRN for For Pain, (Reported) Miscellaneous Medications Cholecalciferol (Vitamin D3) (Vitamin D3), 1,000 UNIT PO, (Reported) Cranberry Fruit Concentrate (Cranberry), 900 MG PO, (Reported) Zinc (Zinc), 220 MG ORAL, (Reported) Discontinued Medications Amlodipine Besylate (Norvasc), 5 MG ORAL DAILY, (Reported) Discontinued Reason: Pt stopped taking med Aspirin* (Aspirin*), 81 MG ORAL DAILY, (Reported) Discontinued Reason: Pt stopped taking med Atorvastatin (Lipitor), 10 MG ORAL BEDTIME, (Reported) Discontinued Reason: Pt stopped taking med Cefepime Hcl/D5w (Cefepime-Dextrose 1 Gm/50 Ml), 500 MG IVPB Q24H Discontinued Reason: Pt stopped taking med Epoetin Daniel (Procrit), 5,000 UNITS SUBQ TUE-TUE-TUE Discontinued Reason: Pt stopped taking med Escitalopram Oxalate* (Lexapro*), 10 MG ORAL DAILY, (Reported) Discontinued Reason: Pt stopped taking med Fluconazole* (Diflucan*), 200 MG ORAL DAILY Discontinued Reason: Pt stopped taking med Hydralazine Hcl* (Hydralazine Hcl*), 50 MG ORAL EVERY 8 HOURS, (Reported) Discontinued Reason: Pt stopped taking med Isosorbide Mononitrate (Isosorbide Mononitrate Er), 30 MG PO, (Reported) Discontinued Reason: Pt stopped taking med Metoprolol Succinate* (Metoprolol Succinate*), 200 MG ORAL DAILY, (Reported) Discontinued Reason: Pt stopped taking med Robinson/Polymyx B Sulf/Dexameth (Maejot-Kgrhx-Xhdtypkh Eye Drop), 3.5 ML OP, ( Reported) Discontinued Reason: Pt stopped taking med Pravastatin Sod* (Pravastatin Sod*), 40 MG ORAL BEDTIME, (Reported) Discontinued Reason: Pt stopped taking med Promethazine HCl/Codeine (Prometh-Codein 6.25-10 mg/5 ml), 5 ML PO, (Reported) Discontinued Reason: Pt stopped taking med Sevelamer Carbonate* (Renvela*), 800 MG ORAL THREE TIMES A DAY, (Reported) Discontinued Reason: Pt stopped taking med Sucroferric Oxyhydroxide (Velphoro), 500 MG PO, (Reported) Discontinued Reason: Pt stopped taking med Sucroferric Oxyhydroxide (Velphoro), 500 MG PO, (Reported) Discontinued Reason: Pt stopped taking med Temazepam* (Restoril*), 15 MG ORAL HSPRN PRN Discontinued Reason: Pt stopped taking med Valsartan (Diovan), 160 MG ORAL DAILY, (Reported) Discontinued Reason: Pt stopped taking med Patient History Healthcare decision maker Resuscitation status Advanced Directive on File Review of Systems Constitutional: Denies: chills, sweats, fever Respiratory: Reports: shortness of breath; Denies: cough, orthopnea, stridor, wheezing Cardiovascular: Denies: chest pain, edema, palpitations Gastrointestinal: Denies: abdominal pain Genitourinary: Denies: dysuria Musculoskeletal: Denies: back pain Skin: Denies: rash Neurological: Denies: headache Physical Exam General Appearance: no apparent distress, alert HEENT: atraumatic, anicteric Neck: normal alignment, supple, normal inspection Respiratory/Chest: lungs clear, normal breath sounds, no respiratory distress, no accessory muscle use Cardiovascular/Chest: normal rate, regular rhythm Abdomen: non tender, soft, no organomegaly Extremities: non-tender, normal inspection 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, no motor/sensory deficits Last 24 Hour Vital Signs Date Time Temp Pulse Resp B/P (MAP) Pulse Ox O2 Delivery O2 Flow Rate FiO2 05/31/19 19:11 121 27 96 35 05/31/19 18:48 140/97 05/31/19 16:49 123 31 92 35 05/31/19 15:50 110 27 95 35 05/31/19 12:32 126 36 97 Bi-Pap 35 05/31/19 12:30 98.0 124 24 184/106 98 Bi-pap 35 05/31/19 12:30 126 36 97 35 05/31/19 11:29 123 32 100 35 05/31/19 11:00 120 24 179/102 100 Bi-pap 35 05/31/19 09:25 120 32 92 35 05/31/19 09:21 182/110 05/31/19 09:00 123 26 Non-Rebreather 05/31/19 09:00 97.7 123 26 182/111 91 Non-Rebreather 05/31/19 08:52 97.7 120 22 180/100 (126) 94 Non-Rebreather Laboratory Tests Test 05/31/19 09:15 05/31/19 09:55 05/31/19 14:52 White Blood Count 13.9 K/UL (4.8-10.8) H Red Blood Count 2.76 M/UL (4.70-6.10) L Hemoglobin 8.6 G/DL (14.2-18.0) L Hematocrit 26.4 % (42.0-52.0) L Mean Corpuscular Volume 95 FL (80-99) Mean Corpuscular Hemoglobin 31.3 PG (27.0-31.0) H Mean Corpuscular Hemoglobin Concent 32.8 G/DL (32.0-36.0) Red Cell Distribution Width 18.8 % (11.6-14.8) H Platelet Count 182 K/UL (150-450) Mean Platelet Volume 6.4 FL (6.5-10.1) L Neutrophils (%) (Auto) % (45.0-75.0) Lymphocytes (%) (Auto) % (20.0-45.0) Monocytes (%) (Auto) % (1.0-10.0) Eosinophils (%) (Auto) % (0.0-3.0) Basophils (%) (Auto) % (0.0-2.0) Differential Total Cells Counted 100 Neutrophils % (Manual) 87 % (45-75) H Lymphocytes % (Manual) 7 % (20-45) L Monocytes % (Manual) 6 % (1-10) Eosinophils % (Manual) 0 % (0-3) Basophils % (Manual) 0 % (0-2) Band Neutrophils 0 % (0-8) Platelet Estimate Adequate Platelet Morphology Normal Hypochromasia 1+ Anisocytosis 1+ Sodium Level 142 MMOL/L (136-145) Potassium Level 5.0 MMOL/L (3.5-5.1) Chloride Level 100 MMOL/L (98-107) Carbon Dioxide Level 21 MMOL/L (21-32) Anion Gap 21 mmol/L (5-15) H Blood Urea Nitrogen 60 mg/dL (7-18) H Creatinine 9.2 MG/DL (0.55-1.30) H Estimat Glomerular Filtration Rate 7.4 mL/min (>60) Glucose Level 78 MG/DL (74-106) Calcium Level 9.1 MG/DL (8.5-10.1) Total Bilirubin 0.8 MG/DL (0.2-1.0) Aspartate Amino Transf (AST/SGOT) 116 U/L (15-37) H Alanine Aminotransferase (ALT/SGPT) 84 U/L (12-78) H Alkaline Phosphatase 173 U/L (46-116) H Troponin I 0.155 ng/mL (0.000-0.056) Pro-B-Type Natriuretic Peptide 93805 pg/mL (0-125) H Total Protein 8.9 G/DL (6.4-8.2) H Albumin 3.7 G/DL (3.4-5.0) Globulin 5.2 g/dL Albumin/Globulin Ratio 0.7 (1.0-2.7) L Lipase 84 U/L (73-393) Arterial Blood pH 7.387 (7.350-7.450) 7.455 (7.350-7.450) Arterial Blood Partial Pressure CO2 34.5 mmHg (35.0-45.0) L 30.8 mmHg (35.0-45.0) L Arterial Blood Partial Pressure O2 52.5 mmHg (75.0-100.0) L 64.7 mmHg (75.0-100.0) L Arterial Blood HCO3 20.3 mmol/L (22.0-26.0) L 21.2 mmol/L (22.0-26.0) L Arterial Blood Oxygen Saturation 82.2 % (95-100) *L 90.2 % (95-100) L Arterial Blood Base Excess -4.2 (-2-2) L -2.2 (-2-2) L Ruperto Test Positive Positive Microbiology Date/Time Source Procedure Growth Status 05/31/19 12:00 Rectum Received Height (Feet): 5 Height (Inches): 7.00 Weight (Pounds): 180 Medications Current Medications Medications (Trade) Dose Ordered Sig/Felix Route PRN Reason Start Time Stop Time Status Last Admin Dose Admin Acetaminophen (Tylenol) 650 mg Q4H PRN ORAL Mild Pain (Pain Scale 1-3) 05/31/19 13:30 06/30/19 13:29 Acetaminophen/ Hydrocodone Bitart ([place] 5/325) 1 tab Q4H PRN ORAL For Pain 05/31/19 13:30 06/07/19 13:29 Albuterol/ Ipratropium (Albuterol/ Ipratropium) 3 ml Q4H PRN HHN Shortness of Breath 05/31/19 13:30 06/05/19 13:29 Amlodipine Besylate (Norvasc) 10 mg DAILY ORAL 06/01/19 09:00 07/01/19 08:59 Aspirin (Ecotrin) 81 mg DAILY ORAL 06/01/19 09:00 07/16/19 08:59 Clonidine HCl (Catapres Tab) 0.1 mg EVERY 6 HOURS ORAL 05/31/19 18:00 08/29/19 17:59 05/31/19 18:48 Clopidogrel Bisulfate (Plavix) 75 mg DAILY ORAL 06/01/19 09:00 07/01/19 08:59 Dextrose (Dextrose 50%) 25 ml Q30M PRN IV Hypoglycemia 05/31/19 13:30 08/29/19 13:29 Dextrose (Dextrose 50%) 50 ml Q30M PRN IV Hypoglycemia 05/31/19 13:30 08/29/19 13:29 Diphenhydramine HCl (Benadryl) 25 mg Q6H PRN ORAL Itching/Pruritis 05/31/19 13:30 06/30/19 13:29 Docusate Sodium (Colace) 100 mg EVERY 12 HOURS ORAL 05/31/19 21:00 06/30/19 20:59 Folic Acid (Folate) 1 mg DAILY ORAL 06/01/19 09:00 07/01/19 08:59 Heparin Sodium (Porcine) (Heparin 5000 units/ml) 5,000 units EVERY 12 HOURS SUBQ 05/31/19 21:00 07/15/19 20:59 Heparin Sodium (Porcine) (Heparin Sod 1000 units/ml 10ml) 2,000 unit ONCE PRN IV dialysis 06/01/19 09:00 06/01/19 23:59 Insulin Aspart (NovoLOG) BEFORE MEALS AND HS SUBQ 05/31/19 16:30 08/29/19 16:29 05/31/19 17:18 Insulin Detemir (Levemir) 10 units DAILY SUBQ 06/01/19 09:00 08/30/19 08:59 Lorazepam (Ativan) 1 mg Q4H PRN ORAL For Anxiety 05/31/19 13:30 06/07/19 13:29 Losartan Potassium (Cozaar) 100 mg DAILY ORAL 06/01/19 09:00 07/01/19 08:59 Micafungin Sodium 100 mg/Sodium Chloride 110 ml @ 110 mls/hr Q24H IVPB 05/31/19 16:00 06/05/19 15:59 05/31/19 17:10 Multivitamins Therapeutic (Therapeutic Multivitamin) 1 ea DAILY ORAL 06/01/19 09:00 07/01/19 08:59 Nitroglycerin (Ntg) 0.4 mg Q5M PRN SL Prn Chest Pain 05/31/19 13:30 06/30/19 13:29 Pantoprazole (Protonix) 40 mg DAILY ORAL 06/01/19 09:00 07/01/19 08:59 Pravastatin Sodium (Pravachol) 80 mg BEDTIME ORAL 05/31/19 21:00 06/30/19 20:59 Trazodone HCl (Desyrel) 50 mg BEDTIME ORAL 05/31/19 21:00 06/30/19 20:59 Assessment/Plan Assessment/Plan: #ESRD on HD #Acute pulmonary edema #Acute hypoxic respiratory failure - Nephrology consutled - HD and UF per Renal #L BKA wound dehiscence #s/p L BKA 04/19/2019 #S/p LLE I&&D w/ debridement and wound vac placement 05/17/19, cultures growing Indu glabrata -local wound care -cont micafungin until 06/04 as per ID recs -ID consulted #Anemia of chronic disease - Hgb currently higher than prior baseline of ~7-8 - Monitor CBC #DM complicated by neuropathy #Hyperglycemia uncontrolled - Continue lantus 10 units subq daily - SSI lispro - Carb controlled diet #HTN #HLD -Cont Losartan 100mg daily -Cont metoprolol 25mg BID -Cont cardura 2mg daily -norvasc 10mg, daily -Cont Clonidine PRN -Cont Statin -Cardiology following #GERD Cont Protonix I spent 70 minutes on this patient's case, and >50% was dedicated to counseling and/or care coordination. I spent an additional 35 minutes on review of medical records including prior medical records, consult notes, progress notes, procedures, imaging, labs, hemodynamics, and other clinical documentation. Torres Perea MD May 31, 2019 19:23
[2019-05-31 20:00] VITALS: BP 158/88
[2019-05-31] MEDS: Docusate 100mg cap ORAL SCH (20:20)
[2019-05-31] MEDS: Heparin 5000 units/ml inj SUBQ SCH (20:27)
[2019-05-31] MEDS: TraZODone 50mg tab ORAL SCH (21:00)
--- NOTE | 2019-05-31 22:40 | NUR ---
NURSE NOTES: Pt c/o SOB spoke with RT who is present at bedside and to administer PRN albuterol. Will continue to monitor. Will reassess.
--- NOTE | 2019-05-31 22:51 | NUR ---
NURSE NOTES: Called [facility] to get update on approximate arrival time. Will await a call back. Will continue to monitor.
[2019-06-01] VITALS: BP 203/83
--- NOTE | 2019-06-01 00:04 | NUR ---
NURSE NOTES: VS obtained and BP noted to be 203/83. Catapres given as ordered. Pt denies pain. Neuro assessment performed with no changes from baseline. Will reassess. Will continue to monitor.
--- NOTE | 2019-06-01 00:55 | NUR ---
NURSE NOTES: BP rechecked after administration of Catapres as ordered. Current BP of 175/82 noted. Pt continues to deny pain and HIDALGO. Neuro assessment remains consistent with pt baseline. Will continue to monitor. Will reassess BP.
--- NOTE | 2019-06-01 02:47 | NUR ---
NURSE NOTES: Pt noted to desaturate to 71% with increased WOB and use of accessory muscles. Pt immediately repositioned and RT called to bedside for assistance. Bipap mask changed and CO2 of 35.3 mmHg noted. BP checked and noted to be 223/98 Pt denies pain and HIDALGO. Neuro assessment remains consistent with pt baseline. Paged surveillance system monitor doctor. Will await a call back with further orders. Will continue to monitor.
--- NOTE | 2019-06-01 02:58 | NUR ---
NURSE NOTES: Spoke with Dr Peters, covering for Dr Bueno, regarding pt condition. Dr Peters to enter order for one time dose of Hydralazine, change HD order to STAT due to change in pt condition and continue to monitor. Will carry out orders. Will continue to monitor.
[2019-06-01] MEDS ORDERED: HydrALAZINE 25mg tab ORAL PRN (03:00)
--- NOTE | 2019-06-01 03:33 | NUR ---
NURSE NOTES: Reevaluated BP after administering Hydralazine as ordered. Current BP 152/68. Neuro assessment remains consistent with pt baseline. Pt continue to deny HIDALGO and pain. Will continue to monitor.
[2019-06-01 04:00] VITALS: BP 152/78
[2019-06-01 05:11] LABS: HEMATOCRIT 25.3 % (42.0-52.0); HEMOGLOBIN 8.4 G/DL (14.2-18.0); MEAN CORPUSCULAR VOLUME 93 FL (80-99); PLATELET COUNT 155 K/UL (150-450); RED BLOOD COUNT 2.71 M/UL (4.70-6.10); RED CELL DISTRIBUTION WIDTH 17.1 % (11.6-14.8); WHITE BLOOD COUNT 13.7 K/UL (4.8-10.8)
[2019-06-01 05:21] LABS: ANION GAP 21 mmol/L (5-15); BLOOD UREA NITROGEN 88 mg/dL (7-18); CALCIUM 9.4 MG/DL (8.5-10.1); CARBON DIOXIDE 23 MMOL/L (21-32); CHLORIDE 101 MMOL/L (98-107); POTASSIUM 5.5 MMOL/L (3.5-5.1); SODIUM 145 MMOL/L (136-145)
--- NOTE | 2019-06-01 06:09 | NUR ---
NURSE NOTES: Spoke with Dr Peters regarding progressive respiratory symptoms, fever, cough and pt comes from shelter w/room mate who is being evaluated for high fevers and cough. [place] droplet precautions and send out swabs to r/o covid and influenza a&b HD nurse present at bedside and made aware of precautions. Will carry out orders. Will continue to monitor.
[2019-06-01] MEDS: NovoLOG Insulin Flexpen SUBQ SCH ×4 (06:30→21:00)
--- NOTE | 2019-06-01 07:26 | NUR ---
RESPIRATORY NOTE: received pt on bipap. no visible redness or wounds when relieving pt from mask to readjust. alarms are audible and bipap is plugged into the redoutlet. will monitor throughout the day.
--- NOTE | 2019-06-01 07:33 | NUR ---
HAND-OFF: Report given to MARLENY Manzo. Plan of care endorsed.
[2019-06-01 08:00] VITALS: BP 170/59
--- NOTE | 2019-06-01 08:00 | NUR ---
NURSE NOTES: Received change of shift report from Slava FARMER. Pt is on strict isolation to rule out for COVID-19. Pt is awake, alert, oriented x3, on Bipap 15/5 at 100% FIO2, currently at 98% O2Sat. Bilateral inspiratory/expiratory rhonchi/rales are heard on auscultation. Pt states he feels shortness of breath, does not have any cough, and denies any pain at this time. ST per Tele monitor, with heart rate fluctuating from 120-136. Temp 98.8F axillary. Pt is currently receiving dialysis, by Otoniel FARMER/HD from [facility]. Pt has right AV fistula for dialysis, with bruit/thrill present, and left AC #20G, saline locked, patent/intact. Pt has left BKA with sutures covered with optifoam dressing, dry/intact. Pt is at high-villegas's, bed locked, three side rails up, bed in lowest position, and call light is placed within easy reach. Will continue to monitor pt and follow plan of care per MD orders and protocol.
[2019-06-01] MEDS: Aspirin EC 81mg tab ORAL SCH (09:00)
[2019-06-01] MEDS ORDERED: Heparin Sod 1000 units/ml 10ml IV PRN (09:00)
[2019-06-01] MEDS: Losartan 50mg tab ORAL SCH (09:00)
[2019-06-01] MEDS: Heparin 5000 units/ml inj SUBQ SCH ×2 (09:00→21:00)
[2019-06-01] MEDS ORDERED: Ascorbic Acid 500mg tab ORAL SCH (09:00)
[2019-06-01] MEDS ORDERED: Docusate 100mg cap ORAL SCH (09:00)
--- NOTE | 2019-06-01 09:00 | NUR ---
pt received hd via right av fistula by lenora gallegos from 0530 to 0900 tolerated well uf 4000ml strong thrill and bruit, endorsed to elaine
--- NOTE | 2019-06-01 09:32 | NUR ---
RESPIRATORY NOTE: removed pt off bipap and placed on 4L NC. pt currently sating 94-96%. RN notified
--- NOTE | 2019-06-01 09:59 | NUR ---
RD ASSESSMENT & RECOMMENDATIONS SEE CARE ACTIVITY FOR COMPLETE ASSESSMENT DAILY ESTIMATED NEEDS: Needs based on ESRD on HD 69.5kg 25-35 kcals/kg 0536-4890 total kcals 1.2-1.8 g protein/kg 83-125 g total protein Fluid per MD, on HD NUTRITION DIAGNOSIS: * Increased kcal and protein needs R/T renal dysfunction as evidenced by pt w/ ESRD on HD. CURRENT DIET:Cardiac Renal PO DIET RECOMMENDATIONS: RENAL / CCHO MED DIET ADDITIONAL RECOMMENDATIONS: 1) RE-calibrate bed scale as able for accurate CBW 2) Monitor BGs closely for hyperglycemia as well as hypoglycemia 3) Monitor lytes: check phos level (not yet checked) 4) Wound healing: add Nephrovite x 1 + SANAZ BID 5) On bipap, monitor po intake, need for supplements / snacks . .
[2019-06-01] MEDS: Docusate 100mg cap ORAL SCH ×2 (10:04→21:00)
[2019-06-01] MEDS: Levemir Flexpen SUBQ SCH (10:04)
[2019-06-01] MEDS: Multivitamin w/Minerals tab ORAL SCH (10:04)
--- NOTE | 2019-06-01 10:30 | NUR ---
NURSE NOTES: Pt was seen by Dr Pool after the completion of bedside HD treatment. MD informed that 4L was removed during hemodialysis. Pt remains to have ST, with heart rate in the 130's. Order for repeat chest xray. Pt was informed and understands the strict precautions for COVID-19. Bipap was switched to nasal cannula at 4L while having breakfast, then had worsening shortness of breath, and was switched back to Bipap 15/5
--- NOTE | 2019-06-01 11:00 | NUR ---
NURSE NOTES: Pt was seen by Dr Gomes. Order noted for chest CT with contrast. Contacted CT dept. to confirm and set up imaging, however was told by Ian from CT, that per CT-making department preparer, CT will not be done until COVID-swab results are back. Charge nurse is aware. Addendum: 06/01/19 at 1555 by KIMANI ORELLANA RN CT of the chest has been rescheduled to 06/04/[address]/dept. due to pending COVID-19 results per dept. policy.
[2019-06-01] MEDS ORDERED: Omnipaque-300 100ml vial INJ ONE (11:15)
[2019-06-01 12:00] VITALS: BP 160/76
--- NOTE | 2019-06-01 12:11 | NUR ---
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 97.7 HR 120 RR 22 B/P 180/100 PH 7.38 PCO2 34.5 PO2 52.5 HCO3 20.3 O2 SAT 82.2 BIPAP 15/5 FIO2 30% AGAP 21 AST 116 TOP 0.155 ALK PHOS 173 BNP [id number] CXR=Severe bilateral airspace disease with central distribution. Consider acute left heart decompensation or CHF. IS: LASIX IV NITRO TOPICAL ADMITTED TO STEP DOWN STEP DOWN STATUS DCP RETURN TO STEP DOWN STATUS
--- NOTE | 2019-06-01 12:15 | Consultation ---
DATE OF CONSULTATION: 06/01/2019 INFECTIOUS DISEASES CONSULTATION CONSULTING PHYSICIAN: Maricarmen Gomes M.D. REFERRING PHYSICIAN: Torres Perea M.D. REASON FOR CONSULTATION: Pneumonia, rule out COVID-19. HISTORY OF PRESENTING ILLNESS: This is a 53-year-old gentleman with history of diabetes, hypertension, renal failure on dialysis, hyperlipidemia, CVA, peripheral vascular disease, status post left BKA, who came in with shortness of breath along with fever and chills. He denies any cough. A chest x-ray showed pulmonary edema. He has been admitted for the concern for COVID-19 and an Infectious Diseases consultation has been obtained for antibiotics. PAST MEDICAL HISTORY: 1. History of diabetes. 2. Hypertension. 3. Renal failure, on hemodialysis. 4. Neuropathy. 5. Hyperlipidemia. 6. CVA. 7. Peripheral vascular disease, status post left BKA. SOCIAL HISTORY: He used to be a smoker. He does not smoke anymore. He used to drink alcohol. He does not drink anymore. He smokes marijuana. FAMILY HISTORY: Noncontributory. REVIEW OF SYSTEMS: RESPIRATORY: He had fever and chills. No cough. He has shortness of breath. No chest pain. CARDIAC: No chest pain. No palpitation. No dizziness. No syncope. GASTROINTESTINAL: No nausea. No vomiting. No abdominal pain or diarrhea. MEDICATIONS: As an inpatient, he is on amlodipine, aspirin, Plavix, folic acid, losartan, multivitamin, Protonix, insulin, heparin, hydralazine, clonidine, subcutaneous heparin, docusate, pravastatin, trazodone, insulin, micafungin, albuterol ipratropium, nitroglycerin, Tylenol, Ativan, Benadryl, [place]. ALLERGIES: No known drug allergies. PHYSICAL EXAMINATION: VITAL SIGNS: Temperature of 98.8, T-max of 101.1, pulse of 136, respiratory rate 26, blood pressure 170/59, O2 saturation of 98%. HEENT: Pupils equally reactive to light and accommodation. Mouth appears clean without thrush. NECK: Supple. No adenopathy. No JVD. CARDIOVASCULAR: Regular rate and rhythm. No murmurs. LUNGS: Clear to auscultation bilaterally. No crackles. No wheezes. ABDOMEN: Soft, nontender. No organomegaly. EXTREMITIES: No cyanosis, no clubbing, no edema. Left stump is clean. LABORATORY AND DIAGNOSTIC DATA: White count 13.7, hemoglobin 8.4, hematocrit 25.3, MCV 93, platelet count 155. Sodium 145, potassium 5.5, chloride 101, bicarb 23, BUN 88, creatinine 10, glucose 190, calcium . Total bilirubin 0.8. AST 116, ALT 84, alkaline phosphatase 173. Troponin 0.155. Beta natriuretic peptide 21,092. Total protein 8.9, albumin 3.7, lipase of 84. Hepatitis B surface antigen is pending. Nasal swab was negative for influenza A and B. Chest x-ray showing severe bilateral airspace disease with central distribution consider congestive heart failure. ASSESSMENT: This is a 53-year-old gentleman with history of diabetes, hypertension, renal failure on hemodialysis, hyperlipidemia, who comes in with fever along with shortness of breath without a cough and was found to have: 1. Possible bilateral pneumonia. 2. Congestive heart failure. 3. We would like to rule out COVID-19 as a possibility. 4. History of CVA. 5. Left BKA stump with Indu glabrata, status post therapy. PLAN: 1. We will start the patient on ceftriaxone. 2. Continue isolation. 3. We will follow up on COVID-19 results. 4. Discontinue micafungin. 5. We will order a CT chest. 6. We will follow up the patient clinically. 7. We will order sputum for Gram stain and culture. I would like to thank, Dr. Pool, for this consultation. Maricarmen Gomes M.D. DR: DEE JOB#: [id number] CC: Torres Perea M.D.
--- NOTE | 2019-06-01 12:35 | General Progress Note ---
Assessment/Plan Assessment/Plan: #ESRD on HD #Acute pulmonary edema #Acute hypoxic respiratory failure #Possible bilateral pneumonia, less likely given improved with fluid removal - Nephrology following - HD and UF per Renal - repeat CXR - continue abx per ID - Follow up COVID19 - Pulm and ID consulted #L BKA wound dehiscence #s/p L BKA 04/19/2019 #S/p LLE I&&D w/ debridement and wound vac placement 05/17/19, cultures growing Indu glabrata -local wound care -cont micafungin until 06/04 as per ID recs -ID recs appreciated #Anemia of chronic disease - Hgb currently higher than prior baseline of ~7-8 - Monitor CBC #DM complicated by neuropathy #Hyperglycemia uncontrolled - Continue lantus 10 units subq daily - SSI lispro - Carb controlled diet #HTN #HLD -Cont Losartan 100mg daily -Cont metoprolol 25mg BID -Cont cardura 2mg daily -norvasc 10mg, daily -Cont Clonidine PRN -Cont Statin -Cardiology following #GERD Cont Protonix I spent 35 minutes on this patient's case, and >50% was dedicated to counseling and/or care coordination. Subjective Date patient seen: Jun 01, 2019 Time patient seen: 12:00 ROS Limited/Unobtainable: No Constitutional: Denies: chills, fever Cardiovascular: Denies: chest pain Respiratory: Denies: cough, shortness of breath Gastrointestinal/Abdominal: Denies: abdomen distended, abdominal pain Allergies: Coded Allergies: NO KNOWN ALLERGIES (Verified Allergy, Unknown, 12/04/17) Subjective Follow up for acute hypoxic resp failure, fluid overload, acute pulm edema Overnight had worsening of respiratory parameters, increased fio2 on bipap. Influenza negativem COVID19 sent. Had HD this morning with 4 liters removed, feels much better and weaned to nasal cannula Objective Last 24 Hour Vital Signs Date Time Temp Pulse Resp B/P (MAP) Pulse Ox O2 Delivery O2 Flow Rate FiO2 06/01/19 12:00 50 06/01/19 12:00 Bi-pap 06/01/19 11:05 136 26 98 50 06/01/19 09:16 133 23 100 60 06/01/19 08:00 Bi-pap 06/01/19 08:00 98.8 139 26 170/59 (96) 94 06/01/19 08:00 70 06/01/19 08:00 112 06/01/19 07:25 115 27 100 70 06/01/19 05:07 119 28 98 80 06/01/19 04:00 Bi-pap 06/01/19 04:00 99.7 120 24 152/78 (102) 98 06/01/19 04:00 100 06/01/19 03:40 120 06/01/19 03:35 120 31 100 100 06/01/19 03:16 225/98 06/01/19 00:35 126 26 97 50 06/01/19 00:00 101.1 121 26 203/83 (123) 95 06/01/19 00:00 Bi-pap 06/01/19 00:00 124 05/31/19 23:57 203/83 05/31/19 22:34 118 26 92 Bi-Pap 35 121 26 94 35 05/31/19 21:28 110 27 96 35 05/31/19 20:00 35 05/31/19 20:00 Bi-pap 05/31/19 20:00 100.3 124 28 158/88 (111) 93 05/31/19 19:11 121 27 96 35 05/31/19 19:05 119 05/31/19 18:48 140/97 05/31/19 16:49 123 31 92 35 05/31/19 16:00 35 05/31/19 16:00 99.3 121 27 140/97 (111) 92 05/31/19 16:00 Bi-pap 05/31/19 15:50 110 27 95 35 05/31/19 13:03 Bi-Pap 05/31/19 12:32 126 36 97 Bi-Pap 35 05/31/19 12:30 98.0 124 24 184/106 98 Bi-pap 35 05/31/19 12:30 126 36 97 35 Intake and Output 05/31/19 06/01/19 19:00 07:00 Intake Total 110 ml 120 ml Balance 110 ml 120 ml Intake Oral 0 ml 120 ml IV Total 110 ml Laboratory Tests 05/31/19 14:52: Arterial Blood pH 7.455H, Arterial Blood Partial Pressure CO2 30.8L, Arterial Blood Partial Pressure O2 64.7L, Arterial Blood HCO3 21.2L, Arterial Blood Oxygen Saturation 90.2L, Arterial Blood Base Excess -2.2L, Ruperto Test Positive 06/01/19 02:26: Arterial Blood pH 7.387, Arterial Blood Partial Pressure CO2 35.3, Arterial Blood Partial Pressure O2 79.7, Arterial Blood HCO3 20.7L, Arterial Blood Oxygen Saturation 93.4L, Arterial Blood Base Excess -3.8L, Ruperto Test Positive 06/01/19 03:15: White Blood Count 13.7H, Red Blood Count 2.71L, Hemoglobin 8.4L, Hematocrit 25.3L, Mean Corpuscular Volume 93, Mean Corpuscular Hemoglobin 31.1H, Mean Corpuscular Hemoglobin Concent 33.4, Red Cell Distribution Width 17.1H, Platelet Count 155, Mean Platelet Volume 5.3L, Neutrophils (%) (Auto) , Lymphocytes (%) (Auto) , Monocytes (%) (Auto) , Eosinophils (%) (Auto) , Basophils (%) (Auto) , Differential Total Cells Counted 100, Neutrophils % ( Manual) 83H, Lymphocytes % (Manual) 11L, Monocytes % (Manual) 6, Eosinophils % ( Manual) 0, Basophils % (Manual) 0, Band Neutrophils 0, Platelet Estimate Adequate, Platelet Morphology Normal, Hypochromasia 1+, Anisocytosis 1+, Sodium Level 145, Potassium Level 5.5H, Chloride Level 101, Carbon Dioxide Level 23, Anion Gap 21H, Blood Urea Nitrogen 88H, Creatinine 10.0H, Estimat Glomerular Filtration Rate 6.7, Glucose Level 198#H, Calcium Level 9.4, Hepatitis B Surface Antigen [Pending] Height (Feet): 5 Height (Inches): 8.00 Weight (Pounds): 175 General Appearance: alert Neck: normal alignment, supple Cardiovascular: normal rate, regular rhythm Respiratory/Chest: lungs clear, normal breath sounds, no respiratory distress Abdomen: non tender, soft Torres Perea MD Jun 01, 2019 12:35
[2019-06-01] MEDS: cefTRIAXone 1 GM in D5W 55 ML IVPB SCH (13:02)
--- NOTE | 2019-06-01 13:16 | NUR ---
RADIOLOGY DEPT., CHEST X-RAY DONE.-P.DYE
--- NOTE | 2019-06-01 13:32 | Diagnostic Imaging Report ---
. Indication: Chest pain Technique: One view of the chest Comparison: none Findings: Extensive diffuse with a central predominance airspace disease is again demonstrated, degree of consolidation appearing slightly more dense than on the previous study. The heart remains enlarged. Impression: Worsening extensive bilateral diffuse parenchymal disease, over one day
--- NOTE | 2019-06-01 13:44 | Nephrology Progress Note ---
Assessment/Plan Assessment 1) ESRD 2) Fluid overload/CHF 3) Doubt Covid-19 infection, however not impossible Plan: Anoter run of HD today with 4 l off Subjective Subjective He had HD yesterday with 4 L removal, he is off of Bipap intermittently, less sob, but still is, he is tested for Covid-19, no fever, WBC is 13.9 Objective Objective Last 24 Hour Vital Signs Date Time Temp Pulse Resp B/P (MAP) Pulse Ox O2 Delivery O2 Flow Rate FiO2 06/01/19 12:00 50 06/01/19 12:00 136 06/01/19 12:00 Bi-pap 06/01/19 11:05 136 26 98 50 06/01/19 09:16 133 23 100 60 06/01/19 08:00 Bi-pap 06/01/19 08:00 98.8 139 26 170/59 (96) 94 06/01/19 08:00 70 06/01/19 08:00 112 06/01/19 07:25 115 27 100 70 06/01/19 05:07 119 28 98 80 06/01/19 04:00 Bi-pap 06/01/19 04:00 99.7 120 24 152/78 (102) 98 06/01/19 04:00 100 06/01/19 03:40 120 06/01/19 03:35 120 31 100 100 06/01/19 03:16 225/98 06/01/19 00:35 126 26 97 50 06/01/19 00:00 101.1 121 26 203/83 (123) 95 06/01/19 00:00 Bi-pap 06/01/19 00:00 124 05/31/19 23:57 203/83 05/31/19 22:34 118 26 92 Bi-Pap 35 121 26 94 35 05/31/19 21:28 110 27 96 35 05/31/19 20:00 35 05/31/19 20:00 Bi-pap 05/31/19 20:00 100.3 124 28 158/88 (111) 93 05/31/19 19:11 121 27 96 35 05/31/19 19:05 119 05/31/19 18:48 140/97 05/31/19 16:49 123 31 92 35 05/31/19 16:00 35 05/31/19 16:00 99.3 121 27 140/97 (111) 92 05/31/19 16:00 Bi-pap 05/31/19 15:50 110 27 95 35 Intake and Output 05/31/19 06/01/19 19:00 07:00 Intake Total 110 ml 120 ml Balance 110 ml 120 ml Intake Oral 0 ml 120 ml IV Total 110 ml Laboratory Tests 05/31/19 14:52: Arterial Blood pH 7.455H, Arterial Blood Partial Pressure CO2 30.8L, Arterial Blood Partial Pressure O2 64.7L, Arterial Blood HCO3 21.2L, Arterial Blood Oxygen Saturation 90.2L, Arterial Blood Base Excess -2.2L, Ruperto Test Positive 06/01/19 02:26: Arterial Blood pH 7.387, Arterial Blood Partial Pressure CO2 35.3, Arterial Blood Partial Pressure O2 79.7, Arterial Blood HCO3 20.7L, Arterial Blood Oxygen Saturation 93.4L, Arterial Blood Base Excess -3.8L, Ruperto Test Positive 06/01/19 03:15: White Blood Count 13.7H, Red Blood Count 2.71L, Hemoglobin 8.4L, Hematocrit 25.3L, Mean Corpuscular Volume 93, Mean Corpuscular Hemoglobin 31.1H, Mean Corpuscular Hemoglobin Concent 33.4, Red Cell Distribution Width 17.1H, Platelet Count 155, Mean Platelet Volume 5.3L, Neutrophils (%) (Auto) , Lymphocytes (%) (Auto) , Monocytes (%) (Auto) , Eosinophils (%) (Auto) , Basophils (%) (Auto) , Differential Total Cells Counted 100, Neutrophils % ( Manual) 83H, Lymphocytes % (Manual) 11L, Monocytes % (Manual) 6, Eosinophils % ( Manual) 0, Basophils % (Manual) 0, Band Neutrophils 0, Platelet Estimate Adequate, Platelet Morphology Normal, Hypochromasia 1+, Anisocytosis 1+, Sodium Level 145, Potassium Level 5.5H, Chloride Level 101, Carbon Dioxide Level 23, Anion Gap 21H, Blood Urea Nitrogen 88H, Creatinine 10.0H, Estimat Glomerular Filtration Rate 6.7, Glucose Level 198#H, Calcium Level 9.4, Hepatitis B Surface Antigen [Pending] Height (Feet): 5 Height (Inches): 8.00 Weight (Pounds): 175 General Appearance: WD/WN, alert, moderate distress EENT: PERRL/EOMI Neck: non-tender, other - JVD high Cardiovascular: regular rhythm, JVD - High, tachycardia Respiratory/Chest: rhonchi - bilaterally, other - Rales bibasillarly Abdomen: normal bowel sounds, non tender Extremities: non-tender, moderate edema 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
--- NOTE | 2019-06-01 13:50 | NUR ---
NURSE NOTES: Sputum was collected from pt and sent to lab per MD order.
--- NOTE | 2019-06-01 14:00 | NUR ---
NURSE NOTES: Pt was seen by Dr Danielle for nephro follow up. notified of this morning's HD treatment and removal of 4L. Per MD, pt will need another hemodialysis today, and order was noted for another treatment. [facility] nephrology was contacted, spoke with Fannie at [facility], who will forward my message to dialysis nurse. Addendum: 06/01/19 at 1543 by KIMANI ORELLANA RN Dr Danielle was notified of pt's worsening ST, heart rate from 130-150. Per , pt is on fluid overload, and needs to have second dialysis today.
--- NOTE | 2019-06-01 15:00 | NUR ---
NURSE NOTES: Spoke with hemodialysis nurse, Otoniel FARMER, who confirmed, will be in the unit to provide HD treatment to pt after 1999 this evening. Addendum: 06/01/19 at 1545 by KIMANI ORELLANA RN Per dialysis nurse, will endorse to hotel night auditor, all blood thinners, ASA/Plavix and BP meds are to be held today, until after HD treatment.
--- NOTE | 2019-06-01 15:27 | Pulmonology Progress Note ---
Assessment/Plan Assessment/Plan Pulmonary Consultation HPI 53-year-old male with past medical history of ESRD on HD, HTN, IDDM with neuropathy, HTN, HLD, prior CVA, PVD s/p L BKA (04/19/2019) admitted with severe dyspnea, chest pressure, fevers, cough, denies foreign travel, room mate has been sick. CXR suggestive of aute pulmonary edema/fluid overload. Started on BiPAP with improvement in oxygenation on blood gas and presenting symptoms of dyspnea. Allergies: NO KNOWN ALLERGIES Past Medical History: ESRD on HD, Diabetes Mellitus, Peripheral Neuropathy, Hypertension, Hyperlipidemia, PVD, Left BKA Scheduled Medications Amlodipine Besylate* (Amlodipine Besylate*), 10 MG ORAL DAILY, (Reported) Ascorbic Acid* (Vitamin C*), 500 MG ORAL DAILY, (Reported) Aspirin* (Aspir 81*), 81 MG ORAL DAILY, (Reported) Clonidine Hcl* (Catapres*), 0.1 MG ORAL EVERY 6 HOURS, (Reported) Clopidogrel Bisulfate* (Plavix*), 75 MG ORAL DAILY, (Reported) Docusate Sodium* (Colace*), 100 MG ORAL DAILY, (Reported) Folic Acid* (Folic Acid*), 1 MG ORAL DAILY, (Reported) Folic Acid/Vitamin B Comp W-C (Ashlie-Brian Tablet), 0.8 MG PO DAILY, (Reported) Insulin Glargine (Lantus), 10 SUBQ 8am, (Reported) Insulin Lispro (Humalog), 6 SUBQ TID, (Reported) Losartan Potassium* (Cozaar*), 100 MG ORAL DAILY, (Reported) Multivitamin with Minerals (Multivitamins with Minerals), 1 TAB ORAL DAILY, ( Reported) Pantoprazole* (Protonix*), 40 MG ORAL DAILY, (Reported) Pravastatin Sod* (Pravachol*), 80 MG ORAL BEDTIME, (Reported) Trazodone* (Trazodone*), 50 MG ORAL BEDTIME, (Reported) Scheduled PRN Hydrocodone Bit/Acetaminophen 5-325* ([place] 5-325 Tablet*), 1 TAB ORAL Q4H PRN for For Pain, (Reported) Miscellaneous Medications Cholecalciferol (Vitamin D3) (Vitamin D3), 1,000 UNIT PO, (Reported) Cranberry Fruit Concentrate (Cranberry), 900 MG PO, (Reported) Zinc (Zinc), 220 MG ORAL, (Reported) Resuscitation status Full code Review of Systems: Constitutional: Denies: chills, sweats, fever Respiratory: Reports: shortness of breath; Denies: cough, orthopnea, stridor, wheezing Cardiovascular: Denies: chest pain, edema, palpitations Gastrointestinal: Denies: abdominal pain Genitourinary: Denies: dysuria Musculoskeletal: Denies: back pain Skin: Denies: rash Neurological: Denies: headache Physical Exam Height (Feet): 5 Height (Inches): 7.00 Weight (Pounds): 180 Vital Signs Noted General Appearance: no apparent distress, alert HEENT: atraumatic, anicteric Neck: normal alignment, supple, normal inspection Respiratory/Chest: lno respiratory distress, no accessory muscle use, basal crackles, reduced basal BS Cardiovascular/Chest: normal rate, regular rhythm Abdomen: non tender, soft, no organomegaly Extremities: non-tender, normal inspection, Left BKA bandaged 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, no motor/sensory deficits Laboratory Tests Noted Test 05/31/19 09:15 05/31/19 09:55 05/31/19 14:52 White Blood Count 13.9 K/UL (4.8-10.8) H Red Blood Count 2.76 M/UL (4.70-6.10) L Hemoglobin 8.6 G/DL (14.2-18.0) L Hematocrit 26.4 % (42.0-52.0) L Mean Corpuscular Volume 95 FL (80-99) Mean Corpuscular Hemoglobin 31.3 PG (27.0-31.0) H Mean Corpuscular Hemoglobin Concent 32.8 G/DL (32.0-36.0) Red Cell Distribution Width 18.8 % (11.6-14.8) H Platelet Count 182 K/UL (150-450) Mean Platelet Volume 6.4 FL (6.5-10.1) L Neutrophils (%) (Auto) % (45.0-75.0) Lymphocytes (%) (Auto) % (20.0-45.0) Monocytes (%) (Auto) % (1.0-10.0) Eosinophils (%) (Auto) % (0.0-3.0) Basophils (%) (Auto) % (0.0-2.0) Differential Total Cells Counted 100 Neutrophils % (Manual) 87 % (45-75) H Lymphocytes % (Manual) 7 % (20-45) L Monocytes % (Manual) 6 % (1-10) Eosinophils % (Manual) 0 % (0-3) Basophils % (Manual) 0 % (0-2) Band Neutrophils 0 % (0-8) Platelet Estimate Adequate Platelet Morphology Normal Hypochromasia 1+ Anisocytosis 1+ Sodium Level 142 MMOL/L (136-145) Potassium Level 5.0 MMOL/L (3.5-5.1) Chloride Level 100 MMOL/L (98-107) Carbon Dioxide Level 21 MMOL/L (21-32) Anion Gap 21 mmol/L (5-15) H Blood Urea Nitrogen 60 mg/dL (7-18) H Creatinine 9.2 MG/DL (0.55-1.30) H Estimat Glomerular Filtration Rate 7.4 mL/min (>60) Glucose Level 78 MG/DL (74-106) Calcium Level 9.1 MG/DL (8.5-10.1) Total Bilirubin 0.8 MG/DL (0.2-1.0) Aspartate Amino Transf (AST/SGOT) 116 U/L (15-37) H Alanine Aminotransferase (ALT/SGPT) 84 U/L (12-78) H Alkaline Phosphatase 173 U/L (46-116) H Troponin I 0.155 ng/mL (0.000-0.056) Pro-B-Type Natriuretic Peptide 90106 pg/mL (0-125) H Total Protein 8.9 G/DL (6.4-8.2) H Albumin 3.7 G/DL (3.4-5.0) Globulin 5.2 g/dL Albumin/Globulin Ratio 0.7 (1.0-2.7) L Lipase 84 U/L (73-393) Arterial Blood pH 7.387 (7.350-7.450) 7.455 (7.350-7.450) Arterial Blood Partial Pressure CO2 34.5 mmHg (35.0-45.0) L 30.8 mmHg (35.0-45.0) L Arterial Blood Partial Pressure O2 52.5 mmHg (75.0-100.0) L 64.7 mmHg (75.0-100.0) L Arterial Blood HCO3 20.3 mmol/L (22.0-26.0) L 21.2 mmol/L (22.0-26.0) L Arterial Blood Oxygen Saturation 82.2 % (95-100) *L 90.2 % (95-100) L Arterial Blood Base Excess -4.2 (-2-2) L -2.2 (-2-2) L Ruperto Test Positive Positive Microbiology Date/Time Source Procedure Growth Status 05/31/19 12:00 Rectum Received EKG: ST, no acute ST changes CXR: Bilateral parenchymal infiltrates Current Medications Medications (Trade) Dose Ordered Sig/Felix Route PRN Reason Start Time Stop Time Status Last Admin Dose Admin Acetaminophen (Tylenol) 650 mg Q4H PRN ORAL Mild Pain (Pain Scale 1-3) 05/31/19 13:30 06/30/19 13:29 Acetaminophen/ Hydrocodone Bitart ([place] 5/325) 1 tab Q4H PRN ORAL For Pain 05/31/19 13:30 06/07/19 13:29 Albuterol/ Ipratropium (Albuterol/ Ipratropium) 3 ml Q4H PRN HHN Shortness of Breath 05/31/19 13:30 06/05/19 13:29 Amlodipine Besylate (Norvasc) 10 mg DAILY ORAL 06/01/19 09:00 07/01/19 08:59 Aspirin (Ecotrin) 81 mg DAILY ORAL 06/01/19 09:00 07/16/19 08:59 Clonidine HCl (Catapres Tab) 0.1 mg EVERY 6 HOURS ORAL 05/31/19 18:00 08/29/19 17:59 05/31/19 18:48 Clopidogrel Bisulfate (Plavix) 75 mg DAILY ORAL 06/01/19 09:00 07/01/19 08:59 Dextrose (Dextrose 50%) 25 ml Q30M PRN IV Hypoglycemia 05/31/19 13:30 08/29/19 13:29 Dextrose (Dextrose 50%) 50 ml Q30M PRN IV Hypoglycemia 05/31/19 13:30 08/29/19 13:29 Diphenhydramine HCl (Benadryl) 25 mg Q6H PRN ORAL Itching/Pruritis 05/31/19 13:30 06/30/19 13:29 Docusate Sodium (Colace) 100 mg EVERY 12 HOURS ORAL 05/31/19 21:00 06/30/19 20:59 Folic Acid (Folate) 1 mg DAILY ORAL 06/01/19 09:00 07/01/19 08:59 Heparin Sodium (Porcine) (Heparin 5000 units/ml) 5,000 units EVERY 12 HOURS SUBQ 05/31/19 21:00 07/15/19 20:59 Heparin Sodium (Porcine) (Heparin Sod 1000 units/ml 10ml) 2,000 unit ONCE PRN IV dialysis 06/01/19 09:00 06/01/19 23:59 Insulin Aspart (NovoLOG) BEFORE MEALS AND HS SUBQ 05/31/19 16:30 08/29/19 16:29 05/31/19 17:18 Insulin Detemir (Levemir) 10 units DAILY SUBQ 06/01/19 09:00 08/30/19 08:59 Lorazepam (Ativan) 1 mg Q4H PRN ORAL For Anxiety 05/31/19 13:30 06/07/19 13:29 Losartan Potassium (Cozaar) 100 mg DAILY ORAL 06/01/19 09:00 07/01/19 08:59 Micafungin Sodium 100 mg/Sodium Chloride 110 ml @ 110 mls/hr Q24H IVPB 05/31/19 16:00 06/05/19 15:59 05/31/19 17:10 Multivitamins Therapeutic (Therapeutic Multivitamin) 1 ea DAILY ORAL 06/01/19 09:00 07/01/19 08:59 Nitroglycerin (Ntg) 0.4 mg Q5M PRN SL Prn Chest Pain 05/31/19 13:30 06/30/19 13:29 Pantoprazole (Protonix) 40 mg DAILY ORAL 06/01/19 09:00 07/01/19 08:59 Pravastatin Sodium (Pravachol) 80 mg BEDTIME ORAL 05/31/19 21:00 06/30/19 20:59 Trazodone HCl (Desyrel) 50 mg BEDTIME ORAL 05/31/19 21:00 06/30/19 20:59 Assessment: ESRD on HD Volume Overload Hypoxic Respiratory Failure Possible Pneumonia/Viral Illness Hypertension IDDM with neuropathy Prior CVA PVD s/p L BKA, candidal stump infection Hyperlipidemia Anemia GERD Plan: HD per Renal Antibiotics per ID Await cultures Viral studies pending Isolation O2/BiPAP PRN BiPAP PRN PPX Monitor labs Subjective ROS Limited/Unobtainable: No Allergies: Coded Allergies: NO KNOWN ALLERGIES (Verified Allergy, Unknown, 12/04/17) Objective Last 24 Hour Vital Signs Date Time Temp Pulse Resp B/P (MAP) Pulse Ox O2 Delivery O2 Flow Rate FiO2 06/01/19 14:40 128 27 100 40 06/01/19 12:00 98.0 136 28 160/76 (104) 90 06/01/19 12:00 50 06/01/19 12:00 136 06/01/19 12:00 Bi-pap 06/01/19 11:05 136 26 98 50 06/01/19 09:16 133 23 100 60 06/01/19 08:00 Bi-pap 06/01/19 08:00 98.8 139 26 170/59 (96) 94 06/01/19 08:00 70 06/01/19 08:00 112 06/01/19 07:25 115 27 100 70 06/01/19 05:07 119 28 98 80 06/01/19 04:00 Bi-pap 06/01/19 04:00 99.7 120 24 152/78 (102) 98 06/01/19 04:00 100 06/01/19 03:40 120 06/01/19 03:35 120 31 100 100 06/01/19 03:16 225/98 06/01/19 00:35 126 26 97 50 06/01/19 00:00 101.1 121 26 203/83 (123) 95 06/01/19 00:00 Bi-pap 06/01/19 00:00 124 05/31/19 23:57 203/83 05/31/19 22:34 118 26 92 Bi-Pap 35 121 26 94 35 05/31/19 21:28 110 27 96 35 05/31/19 20:00 35 05/31/19 20:00 Bi-pap 05/31/19 20:00 100.3 124 28 158/88 (111) 93 05/31/19 19:11 121 27 96 35 05/31/19 19:05 119 05/31/19 18:48 140/97 05/31/19 16:49 123 31 92 35 05/31/19 16:00 35 05/31/19 16:00 99.3 121 27 140/97 (111) 92 05/31/19 16:00 Bi-pap 05/31/19 15:50 110 27 95 35 Intake and Output 05/31/19 06/01/19 19:00 07:00 Intake Total 110 ml 120 ml Balance 110 ml 120 ml Intake Oral 0 ml 120 ml IV Total 110 ml Microbiology Date/Time Source Procedure Growth Status 06/01/19 06:00 Nasal Nares - Final Complete 06/01/19 06:00 Nasal Nares - Final Complete 05/31/19 12:00 Rectum Received Laboratory Tests 06/01/19 02:26: Arterial Blood pH 7.387, Arterial Blood Partial Pressure CO2 35.3, Arterial Blood Partial Pressure O2 79.7, Arterial Blood HCO3 20.7L, Arterial Blood Oxygen Saturation 93.4L, Arterial Blood Base Excess -3.8L, Ruperto Test Positive 06/01/19 03:15: White Blood Count 13.7H, Red Blood Count 2.71L, Hemoglobin 8.4L, Hematocrit 25.3L, Mean Corpuscular Volume 93, Mean Corpuscular Hemoglobin 31.1H, Mean Corpuscular Hemoglobin Concent 33.4, Red Cell Distribution Width 17.1H, Platelet Count 155, Mean Platelet Volume 5.3L, Neutrophils (%) (Auto) , Lymphocytes (%) (Auto) , Monocytes (%) (Auto) , Eosinophils (%) (Auto) , Basophils (%) (Auto) , Differential Total Cells Counted 100, Neutrophils % ( Manual) 83H, Lymphocytes % (Manual) 11L, Monocytes % (Manual) 6, Eosinophils % ( Manual) 0, Basophils % (Manual) 0, Band Neutrophils 0, Platelet Estimate Adequate, Platelet Morphology Normal, Hypochromasia 1+, Anisocytosis 1+, Sodium Level 145, Potassium Level 5.5H, Chloride Level 101, Carbon Dioxide Level 23, Anion Gap 21H, Blood Urea Nitrogen 88H, Creatinine 10.0H, Estimat Glomerular Filtration Rate 6.7, Glucose Level 198#H, Calcium Level 9.4, Hepatitis B Surface Antigen [Pending] Current Medications Medications (Trade) Dose Ordered Sig/Felix Route PRN Reason Start Time Stop Time Status Last Admin Dose Admin Acetaminophen (Tylenol) 650 mg Q4H PRN ORAL Mild Pain (Pain Scale 1-3) 05/31/19 13:30 06/30/19 13:29 Acetaminophen/ Hydrocodone Bitart ([place] 5/325) 1 tab Q4H PRN ORAL For Pain 05/31/19 13:30 06/07/19 13:29 Albuterol/ Ipratropium (Albuterol/ Ipratropium) 3 ml Q4H PRN HHN Shortness of Breath 05/31/19 13:30 06/05/19 13:29 05/31/19 22:34 Amlodipine Besylate (Norvasc) 10 mg DAILY ORAL 06/01/19 09:00 07/01/19 08:59 Aspirin (Ecotrin) 81 mg DAILY ORAL 06/01/19 09:00 07/16/19 08:59 Ceftriaxone Sodium 1 gm/ Dextrose 55 ml @ 110 mls/hr Q24H IVPB 06/01/19 12:00 06/08/19 11:59 06/01/19 13:02 Clonidine HCl (Catapres Tab) 0.1 mg Q6H PRN ORAL SBP > 180 05/31/19 23:00 08/29/19 22:59 05/31/19 23:57 Clopidogrel Bisulfate (Plavix) 75 mg DAILY ORAL 06/01/19 09:00 07/01/19 08:59 Dextrose (Dextrose 50%) 25 ml Q30M PRN IV Hypoglycemia 05/31/19 13:30 08/29/19 13:29 Dextrose (Dextrose 50%) 50 ml Q30M PRN IV Hypoglycemia 05/31/19 13:30 08/29/19 13:29 Diphenhydramine HCl (Benadryl) 25 mg Q6H PRN ORAL Itching/Pruritis 05/31/19 13:30 06/30/19 13:29 Docusate Sodium (Colace) 100 mg EVERY 12 HOURS ORAL 05/31/19 21:00 06/30/19 20:59 06/01/19 10:04 Folic Acid (Folate) 1 mg DAILY ORAL 06/01/19 09:00 07/01/19 08:59 06/01/19 10:04 Heparin Sodium (Porcine) (Heparin 5000 units/ml) 5,000 units EVERY 12 HOURS SUBQ 05/31/19 21:00 07/15/19 20:59 Heparin Sodium (Porcine) (Heparin Sod 1000 units/ml 10ml) 2,000 unit ONCE PRN IV dialysis 06/01/19 09:00 06/01/19 23:59 Heparin Sodium (Porcine) (Heparin Sod 1000 units/ml 10ml) 2,000 unit ONCE PRN IV dialysis 06/02/19 09:00 06/02/19 23:59 Hydralazine HCl (Apresoline) 25 mg Q6H PRN ORAL SBP>170 06/01/19 03:00 08/30/19 02:59 Insulin Aspart (NovoLOG) BEFORE MEALS AND HS SUBQ 05/31/19 16:30 08/29/19 16:29 06/01/19 13:05 Insulin Detemir (Levemir) 10 units DAILY SUBQ 06/01/19 09:00 08/30/19 08:59 06/01/19 10:04 Lorazepam (Ativan) 1 mg Q4H PRN ORAL For Anxiety 05/31/19 13:30 06/07/19 13:29 Losartan Potassium (Cozaar) 100 mg DAILY ORAL 06/01/19 09:00 07/01/19 08:59 Multivitamins Therapeutic (Therapeutic Multivitamin) 1 ea DAILY ORAL 06/01/19 09:00 07/01/19 08:59 06/01/19 10:04 Nitroglycerin (Ntg) 0.4 mg Q5M PRN SL Prn Chest Pain 05/31/19 13:30 06/30/19 13:29 Pantoprazole (Protonix) 40 mg DAILY ORAL 06/01/19 09:00 07/01/19 08:59 06/01/19 10:04 Pravastatin Sodium (Pravachol) 80 mg BEDTIME ORAL 05/31/19 21:00 06/30/19 20:59 05/31/19 20:21 Trazodone HCl (Desyrel) 50 mg BEDTIME ORAL 05/31/19 21:00 06/30/19 20:59 Jacinto Cisneros MD Jun 01, 2019 15:27
[2019-06-01 16:00] VITALS: BP 170/59
--- NOTE | 2019-06-01 16:30 | NUR ---
NURSE NOTES: Pt was seen by Dr Cisneros. MD reviewed earlier ABGs and chest xray results from today. Per , orders are in place for breathing tx.
[2019-06-01] MEDS ORDERED: Albuterol 90mcg Inhaler 8gm INH PRN (16:45)
[2019-06-01] MEDS ORDERED: Ipratropium 0.02% Inh Soln 2.5ml UD HHN PRN (16:45)
--- NOTE | 2019-06-01 18:00 | NUR ---
NURSE NOTES: Pt is noncompliant and keeps removing Bipap off his face, then desaturates to 88% O2Sat. Bipap was placed back on pt, and O2Sat is now at 99-100%. Pt refused dinner meal, and ate fruits only.
--- NOTE | 2019-06-01 19:30 | NUR ---
NURSE NOTES: Otoniel RN, dialysis nurse is here, getting ready to start second HD treatment per Dr Danielle. Dialysis nurse is aware of high BP and temp of 100.8. All BP meds and Plavix/ASA/Hep SQ were held during my shift per oncology physician assistant.
--- NOTE | 2019-06-01 19:35 | NUR ---
HAND-OFF: Report given to Slava FARMER. Endorsed plan of care.
--- NOTE | 2019-06-01 19:36 | NUR ---
NURSE NOTES: Received patient and report from MARLENY Manzo. Patient is observed resting in bed and remains alert and oriented x4. Pt is on Bipap 15/5 FiO2 100% with SOB noted at rest and during exertion. Pt noted to be ST on tele monitor with a current HR of 133 with no s/sx of acute distress. Pt currently denies pain. R AV Fistula noted; bruit and thrill noted and remain strong. Pt is currently receiving HD with dialysis nurse present at bedside. L AC 20g IV catheter noted which remains asymptomatic, patent and intact. Skin remains intact but pt admitted with L BKA and right toes amputated. Pt remains resting in bed; Bed remains in the lowest position with the safety wheels engaged, call light within reach, side rails up x3 and bed alarm activated. Will continue plan of care. Will continue to monitor.
[2019-06-01 20:00] VITALS: BP 161/58
[2019-06-01] MEDS: TraZODone 50mg tab ORAL SCH (21:00)
--- NOTE | 2019-06-01 22:45 | NUR ---
NURSE NOTES: Pt educated on fluid restriction r/t being a HD pt and fluid overload. Pt offered frequent oral care instead of drinking an excessive amount of water. Attempted to negotiate with pt regarding fluid intake. Pt declines linen change and bed bath. Pt provided education on insulin, blood sugar control and diet order. Will continue to monitor.
[2019-06-02] VITALS: BP 178/62
--- NOTE | 2019-06-02 | NUR ---
NURSE NOTES: VS acquired and BP remains elevated. Pt refuses additional care and PRN medications. Pt only wants to drink tea. Pt HR and BP elevated; negotiated to provide oral care instead. Will continue to monitor. Will reattempt to provide care.
--- NOTE | 2019-06-02 03:12 | NUR ---
NURSE NOTES: Pt noted to be aggressive and using foul language with staff. Pt noted to be restless and refusing care. Pt continues to pull Bipap off regardless of education. Will continue to monitor. Will reattempt to acquire vital signs.
[2019-06-02 04:00] VITALS: BP 135/78
--- NOTE | 2019-06-02 06:16 | NUR ---
NURSE NOTES: Pt educated on VS and cooling measures. Pt reluctantly allows for removal of heavy blankets, no pharmacological intervention. Rechecked temperature after cooling measure. Temperature now noted to be 99.6 Will continue to monitor.
[2019-06-02] MEDS: NovoLOG Insulin Flexpen SUBQ SCH ×4 (06:30→21:13)
--- NOTE | 2019-06-02 06:50 | NUR ---
NURSE NOTES: Pt states "I hate your breakfast and Im not going to eat that" Insulin held and dietary called for a paper menu to confer with patient as to preferred food. Will endorse to AM staff
--- NOTE | 2019-06-02 07:07 | NUR ---
HAND-OFF: Report given to MARLENY Alanis. Pt remains stable at this time.
--- NOTE | 2019-06-02 07:15 | NUR ---
NURSE NOTES: Received report from MARLENY Johnson. Patient is alert. Afebrile. On Venturi mask with FiO2 55%. O2 sat 98% on the monitor. ST 110s on the monitor. Patient denies any pain/discomfort at this time. Left AC 20G IV intact and mild leaking with flushing. Will put another IV. Right upper arm AV shunt noted with bruits + and thrill +. On airborne precaution R/O COVID 19. Kept dry, clean and comfortable. Call light placed in easy reach. Will continue plan of care.
[2019-06-02 08:00] VITALS: BP 172/108
--- NOTE | 2019-06-02 08:02 | NUR ---
NURSE NOTES: Changed venturi mask to NC with O2 4L/min. O2 sat 97% noted on portable monitor. Offered Breakfast.
[2019-06-02] MEDS: Losartan 50mg tab ORAL SCH (08:14)
[2019-06-02] MEDS: Aspirin EC 81mg tab ORAL SCH (08:14)
[2019-06-02] MEDS: Multivitamin w/Minerals tab ORAL SCH (08:14)
[2019-06-02] MEDS: Docusate 100mg cap ORAL SCH ×3 (08:14→17:23)
[2019-06-02] MEDS: Levemir Flexpen SUBQ SCH (08:53)
[2019-06-02] MEDS: Heparin 5000 units/ml inj SUBQ SCH ×2 (08:53→21:00)
[2019-06-02] MEDS ORDERED: Heparin Sod 1000 units/ml 10ml IV PRN (09:00)
--- NOTE | 2019-06-02 09:22 | NUR ---
NURSE NOTES: 100% intake of breakfast noted. Patient's O2 sat 84% with NC O2 4L/min noted. Switched to Venturi mask 14L, 55%. O2 sat back up to 99%. Will continue to monitor closely.
[2019-06-02 09:28] LABS: BASOPHILS % (AUTO) 0.9 % (0.0-2.0); EOSINOPHILS % (AUTO) 0.6 % (0.0-3.0); HEMATOCRIT 27.9 % (42.0-52.0); HEMOGLOBIN 9.3 G/DL (14.2-18.0); LYMPHOCYTES % (AUTO) 10.4 % (20.0-45.0); MEAN CORPUSCULAR VOLUME 93 FL (80-99); NEUTROPHILS % (AUTO) 83.1 % (45.0-75.0); PLATELET COUNT 158 K/UL (150-450); RED BLOOD COUNT 2.99 M/UL (4.70-6.10); WHITE BLOOD COUNT 10.9 K/UL (4.8-10.8)
--- NOTE | 2019-06-02 09:31 | Diagnostic Imaging Report ---
EXAM: XR Chest, 1 View CLINICAL HISTORY: COUGH TECHNIQUE: Frontal view of the chest. COMPARISON: Chest x-ray, 06/01/19 1300 FINDINGS: Lungs: Diffuse residual bilateral airspace opacities have improved since the prior study. Pleural space: Unremarkable. No pneumothorax. Heart: Cardiomegaly. Mediastinum: Unremarkable. Bones/joints: Unremarkable. IMPRESSION: Diffuse residual bilateral airspace opacities have improved since the prior study.
[2019-06-02 09:42] LABS: ALANINE AMINOTRANSFERASE 153 U/L (12-78); ALBUMIN 3.2 G/DL (3.4-5.0); ALBUMIN/GLOBULIN RATIO 0.6 (1.0-2.7); ALKALINE PHOSPHATASE 139 U/L (46-116); ANION GAP 14 mmol/L (5-15); ASPARTATE AMINO TRANSFERASE 98 U/L (15-37); BILIRUBIN,TOTAL 0.7 MG/DL (0.2-1.0); BLOOD UREA NITROGEN 66 mg/dL (7-18); CALCIUM 9.9 MG/DL (8.5-10.1); CARBON DIOXIDE 29 MMOL/L (21-32); CHLORIDE 100 MMOL/L (98-107); POTASSIUM 4.6 MMOL/L (3.5-5.1); SODIUM 143 MMOL/L (136-145)
[2019-06-02] MEDS ORDERED: NS 275ml ONE ×2 (10:10→20:46)
[2019-06-02] MEDS ORDERED: Tubing IV Secondary IV ONE (10:10)
--- NOTE | 2019-06-02 10:10 | NUR ---
NURSE NOTES: Seen by Dr. Celaya.
--- NOTE | 2019-06-02 10:59 | Nephrology Progress Note ---
Assessment/Plan Problem List: (1) ESRD (end stage renal disease) (2) Pulmonary edema (3) HTN (hypertension) (4) Diabetes mellitus Assessment 1) ESRD 2) Fluid overload/CHF 3) Doubt Covid-19 infection, however not impossible Plan Coverage for Dr.Kaveh Danielle patient received dialysis yesterday twice Significant amount of ultrafiltration was executed Will arrange for dialysis tomorrow Adjust blood pressure medications Subjective ROS Limited/Unobtainable: Yes Objective Objective Last 24 Hour Vital Signs Date Time Temp Pulse Resp B/P (MAP) Pulse Ox O2 Delivery O2 Flow Rate FiO2 06/02/19 08:15 103 172/108 06/02/19 08:14 172/108 06/02/19 08:00 107 06/02/19 08:00 14.0 06/02/19 08:00 Venturi Mask 14.0 06/02/19 08:00 97.1 103 24 172/108 (129) 100 06/02/19 07:27 127 24 100 06/02/19 04:00 14.0 06/02/19 04:00 Venturi Mask 14.0 06/02/19 04:00 101.4 127 24 135/78 (97) 97 06/02/19 03:51 130 06/02/19 02:37 134 22 100 40 06/02/19 01:08 131 23 99 40 06/02/19 00:00 100.1 137 26 178/62 (100) 93 06/02/19 00:00 Bi-pap 06/01/19 23:58 134 06/01/19 23:04 136 19 99 40 06/01/19 20:58 134 26 100 40 06/01/19 20:00 Bi-pap 06/01/19 20:00 50 06/01/19 20:00 100.0 140 28 161/58 (92) 94 06/01/19 20:00 138 06/01/19 18:52 143 33 100 40 06/01/19 16:00 Bi-pap 06/01/19 16:00 98.8 129 26 170/59 (96) 99 06/01/19 16:00 130 06/01/19 16:00 50 06/01/19 14:40 128 27 100 40 06/01/19 12:00 98.0 136 28 160/76 (104) 90 06/01/19 12:00 50 06/01/19 12:00 136 06/01/19 12:00 Bi-pap 06/01/19 11:05 136 26 98 50 Intake and Output 06/01/19 06/02/19 19:00 07:00 Intake Total 110 ml 1240 ml Output Total 4000 ml 4000 ml Balance -3890 ml -2760 ml Intake Oral 1240 ml IV Total 110 ml Output Hemodialysis UF 4000 ml 4000 ml Laboratory Tests 06/02/19 07:05: Arterial Blood pH 7.474H, Arterial Blood Partial Pressure CO2 37.2, Arterial Blood Partial Pressure O2 79.6, Arterial Blood HCO3 26.7H, Arterial Blood Oxygen Saturation 95.1, Arterial Blood Base Excess 3.0H, Ruperto Test Positive 06/02/19 09:00: White Blood Count 10.9H, Red Blood Count 2.99L, Hemoglobin 9.3L, Hematocrit 27.9L, Mean Corpuscular Volume 93, Mean Corpuscular Hemoglobin 31.1H, Mean Corpuscular Hemoglobin Concent 33.4, Red Cell Distribution Width 17.0H, Platelet Count 158, Mean Platelet Volume 6.5, Neutrophils (%) (Auto) 83.1H, Lymphocytes (%) (Auto) 10.4L, Monocytes (%) (Auto) 5.0, Eosinophils (%) (Auto) 0.6, Basophils (%) (Auto) 0.9, Sodium Level 143, Potassium Level 4.6, Chloride Level 100, Carbon Dioxide Level 29, Anion Gap 14, Blood Urea Nitrogen 66H, Creatinine 8.0H, Estimat Glomerular Filtration Rate 8.6, Glucose Level 211H, Calcium Level 9.9, Total Bilirubin 0.7, Aspartate Amino Transf (AST/SGOT) 98H, Alanine Aminotransferase (ALT/SGPT) 153H, Alkaline Phosphatase 139H, Total Protein 8.5H, Albumin 3.2L, Globulin 5.3, Albumin/Globulin Ratio 0.6L Height (Feet): 5 Height (Inches): 8.00 Weight (Pounds): 175 Tone Celaya MD Jun 02, 2019 10:59
--- NOTE | 2019-06-02 11:12 | NUR ---
NURSE NOTES: Confirmed HD for tomorrow with Young/HD nurse.
[2019-06-02 12:00] VITALS: BP 152/88
--- NOTE | 2019-06-02 12:09 | NUR ---
NURSE NOTES: Seen by Dr. Cesar and updated pt's status. Asked for wound consult for Left BKA wound with sutures. She said she is okay with Dr. Wharton. Will follow up.
[2019-06-02] MEDS: cefTRIAXone 1 GM in D5W 55 ML IVPB SCH (12:27)
--- NOTE | 2019-06-02 13:50 | Pulmonology Progress Note ---
Assessment/Plan Assessment/Plan Pulmonary Progress Note HPI 53-year-old male with past medical history of ESRD on HD, HTN, IDDM with neuropathy, HTN, HLD, prior CVA, PVD s/p L BKA (04/19/2019) admitted with severe dyspnea, chest pressure, fevers, cough, denies foreign travel, room mate has been sick. CXR suggestive of aute pulmonary edema/fluid overload. Started on BiPAP with improvement in oxygenation on blood gas and presenting symptoms of dyspnea. Improving CXR with daily HD Covid 19 pending Allergies: NO KNOWN ALLERGIES Past Medical History: ESRD on HD, Diabetes Mellitus, Peripheral Neuropathy, Hypertension, Hyperlipidemia, PVD, Left BKA Resuscitation status Full code Review of Systems: Constitutional: Denies: chills, sweats, fever Respiratory: Reports: shortness of breath; Denies: cough, orthopnea, stridor, wheezing Cardiovascular: Denies: chest pain, edema, palpitations Gastrointestinal: Denies: abdominal pain Genitourinary: Denies: dysuria Musculoskeletal: Denies: back pain Skin: Denies: rash Neurological: Denies: headache Physical Exam Height (Feet): 5 Height (Inches): 7.00 Weight (Pounds): 180 Vital Signs Noted General Appearance: no apparent distress, alert HEENT: atraumatic, anicteric Neck: normal alignment, supple, normal inspection Respiratory/Chest: lno respiratory distress, no accessory muscle use, basal crackles, reduced basal BS Cardiovascular/Chest: normal rate, regular rhythm Abdomen: non tender, soft, no organomegaly Extremities: non-tender, normal inspection, Left BKA bandaged Neurologic: artificial breast fabricator II-XII grossly normal, no motor/sensory deficits Laboratory Tests Noted Microbiology Date/Time Source Procedure Growth Status 05/31/19 12:00 Rectum Received EKG: ST, no acute ST changes CXR: Bilateral parenchymal infiltrates Assessment: ESRD on HD Volume Overload Hypoxic Respiratory Failure Possible Pneumonia/Viral Illness Hypertension IDDM with neuropathy Prior CVA PVD s/p L BKA, candidal stump infection Hyperlipidemia Anemia GERD Plan: HD per Renal Antibiotics per ID Await cultures Viral studies pending Isolation O2/BiPAP PRN BiPAP PRN PPX Monitor labs Subjective ROS Limited/Unobtainable: No Allergies: Coded Allergies: NO KNOWN ALLERGIES (Verified Allergy, Unknown, 12/04/17) Objective Last 24 Hour Vital Signs Date Time Temp Pulse Resp B/P (MAP) Pulse Ox O2 Delivery O2 Flow Rate FiO2 06/02/19 12:00 97.7 105 24 152/88 (109) 98 06/02/19 12:00 14.0 06/02/19 12:00 Venturi Mask 14.0 06/02/19 12:00 96 06/02/19 08:15 103 172/108 06/02/19 08:14 172/108 06/02/19 08:00 107 06/02/19 08:00 14.0 06/02/19 08:00 Venturi Mask 14.0 06/02/19 08:00 97.1 103 24 172/108 (129) 100 06/02/19 07:27 127 24 100 06/02/19 04:00 14.0 06/02/19 04:00 Venturi Mask 14.0 06/02/19 04:00 101.4 127 24 135/78 (97) 97 06/02/19 03:51 130 06/02/19 02:37 134 22 100 40 06/02/19 01:08 131 23 99 40 06/02/19 00:00 100.1 137 26 178/62 (100) 93 06/02/19 00:00 Bi-pap 06/01/19 23:58 134 06/01/19 23:04 136 19 99 40 06/01/19 20:58 134 26 100 40 06/01/19 20:00 Bi-pap 06/01/19 20:00 50 06/01/19 20:00 100.0 140 28 161/58 (92) 94 06/01/19 20:00 138 06/01/19 18:52 143 33 100 40 06/01/19 16:00 Bi-pap 06/01/19 16:00 98.8 129 26 170/59 (96) 99 06/01/19 16:00 130 06/01/19 16:00 50 06/01/19 14:40 128 27 100 40 Intake and Output 06/01/19 06/02/19 19:00 07:00 Intake Total 110 ml 1240 ml Output Total 4000 ml 4000 ml Balance -3890 ml -2760 ml Intake Oral 1240 ml IV Total 110 ml Output Hemodialysis UF 4000 ml 4000 ml Microbiology Date/Time Source Procedure Growth Status 06/01/19 14:00 Sputum Gram Stain - Final Resulted 06/01/19 14:00 Sputum Sputum Culture Pending Resulted 06/01/19 06:00 Nasal Nares - Final Complete 06/01/19 06:00 Nasal Nares - Final Complete 05/31/19 12:00 Nasal Nares MRSA Culture - Final NO METHICILLIN RESISTANT STAPH AUREUS... Complete 05/31/19 12:00 Rectum VRE Culture - Final Enterococcus Faecium - Vre Complete 05/31/19 12:00 Rectum Received Laboratory Tests 06/02/19 07:05: Arterial Blood pH 7.474H, Arterial Blood Partial Pressure CO2 37.2, Arterial Blood Partial Pressure O2 79.6, Arterial Blood HCO3 26.7H, Arterial Blood Oxygen Saturation 95.1, Arterial Blood Base Excess 3.0H, Ruperto Test Positive 06/02/19 09:00: White Blood Count 10.9H, Red Blood Count 2.99L, Hemoglobin 9.3L, Hematocrit 27.9L, Mean Corpuscular Volume 93, Mean Corpuscular Hemoglobin 31.1H, Mean Corpuscular Hemoglobin Concent 33.4, Red Cell Distribution Width 17.0H, Platelet Count 158, Mean Platelet Volume 6.5, Neutrophils (%) (Auto) 83.1H, Lymphocytes (%) (Auto) 10.4L, Monocytes (%) (Auto) 5.0, Eosinophils (%) (Auto) 0.6, Basophils (%) (Auto) 0.9, Sodium Level 143, Potassium Level 4.6, Chloride Level 100, Carbon Dioxide Level 29, Anion Gap 14, Blood Urea Nitrogen 66H, Creatinine 8.0H, Estimat Glomerular Filtration Rate 8.6, Glucose Level 211H, Calcium Level 9.9, Total Bilirubin 0.7, Aspartate Amino Transf (AST/SGOT) 98H, Alanine Aminotransferase (ALT/SGPT) 153H, Alkaline Phosphatase 139H, Total Protein 8.5H, Albumin 3.2L, Globulin 5.3, Albumin/Globulin Ratio 0.6L Current Medications Medications (Trade) Dose Ordered Sig/Felix Route PRN Reason Start Time Stop Time Status Last Admin Dose Admin Acetaminophen (Tylenol) 650 mg Q4H PRN ORAL Mild Pain (Pain Scale 1-3) 05/31/19 13:30 06/30/19 13:29 Acetaminophen/ Hydrocodone Bitart ([place] 5/325) 1 tab Q4H PRN ORAL For Pain 05/31/19 13:30 06/07/19 13:29 Albuterol/ Ipratropium (Albuterol/ Ipratropium) 3 ml Q4H PRN HHN Shortness of Breath 05/31/19 13:30 06/05/19 13:29 05/31/19 22:34 Albuterol/ Ipratropium (Combivent Respimat) 2 puffs Q4H PRN INH Shortness of Breath 06/01/19 17:45 07/01/19 17:44 Amlodipine Besylate (Norvasc) 10 mg DAILY ORAL 06/01/19 09:00 07/01/19 08:59 06/02/19 08:15 Aspirin (Ecotrin) 81 mg DAILY ORAL 06/01/19 09:00 07/16/19 08:59 06/02/19 08:14 Ceftriaxone Sodium 1 gm/ Dextrose 55 ml @ 110 mls/hr Q24H IVPB 06/01/19 12:00 06/08/19 11:59 06/02/19 12:27 Clonidine HCl (Catapres Tab) 0.1 mg Q6H PRN ORAL SBP > 180 05/31/19 23:00 08/29/19 22:59 05/31/19 23:57 Clopidogrel Bisulfate (Plavix) 75 mg DAILY ORAL 06/01/19 09:00 07/01/19 08:59 06/02/19 08:14 Dextrose (Dextrose 50%) 25 ml Q30M PRN IV Hypoglycemia 05/31/19 13:30 08/29/19 13:29 Dextrose (Dextrose 50%) 50 ml Q30M PRN IV Hypoglycemia 05/31/19 13:30 08/29/19 13:29 Diphenhydramine HCl (Benadryl) 25 mg Q6H PRN ORAL Itching/Pruritis 05/31/19 13:30 06/30/19 13:29 Docusate Sodium (Colace) 100 mg TID ORAL 06/02/19 13:00 06/30/19 20:59 06/02/19 12:27 Folic Acid (Folate) 1 mg DAILY ORAL 06/01/19 09:00 07/01/19 08:59 06/02/19 08:15 Heparin Sodium (Porcine) (Heparin 5000 units/ml) 5,000 units EVERY 12 HOURS SUBQ 05/31/19 21:00 07/15/19 20:59 06/02/19 08:53 Heparin Sodium (Porcine) (Heparin Sod 1000 units/ml 10ml) 2,000 unit ONCE PRN IV dialysis 06/02/19 09:00 06/02/19 23:59 Hydralazine HCl (Apresoline) 25 mg Q6H PRN ORAL SBP>170 06/01/19 03:00 08/30/19 02:59 Insulin Aspart (NovoLOG) BEFORE MEALS AND HS SUBQ 05/31/19 16:30 08/29/19 16:29 06/02/19 11:49 Insulin Detemir (Levemir) 10 units DAILY SUBQ 06/01/19 09:00 08/30/19 08:59 06/01/19 10:04 Lorazepam (Ativan) 1 mg Q4H PRN ORAL For Anxiety 05/31/19 13:30 06/07/19 13:29 Losartan Potassium (Cozaar) 100 mg DAILY ORAL 06/01/19 09:00 07/01/19 08:59 06/02/19 08:14 Multivitamins Therapeutic (Therapeutic Multivitamin) 1 ea DAILY ORAL 06/01/19 09:00 07/01/19 08:59 06/02/19 08:14 Nitroglycerin (Ntg) 0.4 mg Q5M PRN SL Prn Chest Pain 05/31/19 13:30 06/30/19 13:29 Pantoprazole (Protonix) 40 mg BID ORAL 06/02/19 18:00 07/01/19 08:59 Pravastatin Sodium (Pravachol) 80 mg BEDTIME ORAL 05/31/19 21:00 06/30/19 20:59 05/31/19 20:21 Trazodone HCl (Desyrel) 50 mg BEDTIME ORAL 05/31/19 21:00 06/30/19 20:59 Jacinto Cisneros MD Jun 02, 2019 13:50
--- NOTE | 2019-06-02 14:00 | General Progress Note ---
Assessment/Plan Assessment/Plan: #ESRD on HD #Acute pulmonary edema #Acute hypoxic respiratory failure #Possible bilateral pneumonia, less likely given improved with fluid removal - repeat CXR 05/31 w/worsening b/l diffuse parenchymal dz - HD and UF per Renal - continue abx per ID - Follow up COVID19 - Pulm and ID consulted - Nephrology following - plan for HD tomorrow #L BKA wound dehiscence #s/p L BKA 04/19/2019 #S/p LLE I&&D w/ debridement and wound vac placement 05/17/19, cultures growing Indu glabrata -local wound care -cont micafungin until 06/04 as per ID recs -ID recs appreciated -Podiatry consulted, Dr. Lane for possible stitches removal #Anemia of chronic disease - Hgb currently higher than prior baseline of ~7-8 - Monitor CBC #DM complicated by neuropathy #Hyperglycemia uncontrolled - Continue lantus 10 units subq daily - SSI lispro - Carb controlled diet #HTN #HLD -Cont Losartan 100mg daily -Cont metoprolol 25mg BID -Cont cardura 2mg daily -norvasc 10mg, daily -Cont Clonidine PRN -Cont Statin -Cardiology following, Dr. Falcon, recs appreciated #GERD Cont Protonix I spent 35 minutes on this patient's case, and >50% was dedicated to counseling and/or care coordination. Additional 40 mins spent with chart review. Subjective Allergies: Coded Allergies: NO KNOWN ALLERGIES (Verified Allergy, Unknown, 12/04/17) Subjective Follow up for acute hypoxic resp failure, fluid overload, acute pulm edema Pt w/fever overnight, now resolved. Hypertensive prior to meds being administered. Pt denies any SOB, currently on Ventimask, tolerating mask. Patient denies any F/C, cough, abdominal pain, dysuria at this time. Objective Last 24 Hour Vital Signs Date Time Temp Pulse Resp B/P (MAP) Pulse Ox O2 Delivery O2 Flow Rate FiO2 06/02/19 12:00 97.7 105 24 152/88 (109) 98 06/02/19 12:00 14.0 06/02/19 12:00 Venturi Mask 14.0 06/02/19 12:00 96 06/02/19 08:15 103 172/108 06/02/19 08:14 172/108 06/02/19 08:00 107 06/02/19 08:00 14.0 06/02/19 08:00 Venturi Mask 14.0 06/02/19 08:00 97.1 103 24 172/108 (129) 100 06/02/19 07:27 127 24 100 06/02/19 04:00 14.0 06/02/19 04:00 Venturi Mask 14.0 06/02/19 04:00 101.4 127 24 135/78 (97) 97 06/02/19 03:51 130 06/02/19 02:37 134 22 100 40 06/02/19 01:08 131 23 99 40 06/02/19 00:00 100.1 137 26 178/62 (100) 93 06/02/19 00:00 Bi-pap 06/01/19 23:58 134 06/01/19 23:04 136 19 99 40 06/01/19 20:58 134 26 100 40 06/01/19 20:00 Bi-pap 06/01/19 20:00 50 06/01/19 20:00 100.0 140 28 161/58 (92) 94 06/01/19 20:00 138 06/01/19 18:52 143 33 100 40 06/01/19 16:00 Bi-pap 06/01/19 16:00 98.8 129 26 170/59 (96) 99 06/01/19 16:00 130 06/01/19 16:00 50 06/01/19 14:40 128 27 100 40 Intake and Output 06/01/19 06/02/19 19:00 07:00 Intake Total 110 ml 1240 ml Output Total 4000 ml 4000 ml Balance -3890 ml -2760 ml Intake Oral 1240 ml IV Total 110 ml Output Hemodialysis UF 4000 ml 4000 ml Laboratory Tests 06/02/19 07:05: Arterial Blood pH 7.474H, Arterial Blood Partial Pressure CO2 37.2, Arterial Blood Partial Pressure O2 79.6, Arterial Blood HCO3 26.7H, Arterial Blood Oxygen Saturation 95.1, Arterial Blood Base Excess 3.0H, Ruperto Test Positive 06/02/19 09:00: White Blood Count 10.9H, Red Blood Count 2.99L, Hemoglobin 9.3L, Hematocrit 27.9L, Mean Corpuscular Volume 93, Mean Corpuscular Hemoglobin 31.1H, Mean Corpuscular Hemoglobin Concent 33.4, Red Cell Distribution Width 17.0H, Platelet Count 158, Mean Platelet Volume 6.5, Neutrophils (%) (Auto) 83.1H, Lymphocytes (%) (Auto) 10.4L, Monocytes (%) (Auto) 5.0, Eosinophils (%) (Auto) 0.6, Basophils (%) (Auto) 0.9, Sodium Level 143, Potassium Level 4.6, Chloride Level 100, Carbon Dioxide Level 29, Anion Gap 14, Blood Urea Nitrogen 66H, Creatinine 8.0H, Estimat Glomerular Filtration Rate 8.6, Glucose Level 211H, Calcium Level 9.9, Total Bilirubin 0.7, Aspartate Amino Transf (AST/SGOT) 98H, Alanine Aminotransferase (ALT/SGPT) 153H, Alkaline Phosphatase 139H, Total Protein 8.5H, Albumin 3.2L, Globulin 5.3, Albumin/Globulin Ratio 0.6L Height (Feet): 5 Height (Inches): 8.00 Weight (Pounds): 175 Objective General Appearance: alert, awake, NAD Neck: normal alignment, supple Cardiovascular: normal rate, regular rhythm Respiratory/Chest: lungs clear, normal breath sounds, no respiratory distress, on Ventimask, tolerating well Abdomen: non tender, soft Ext: Left BKA w/stitches c/d/Adithya Amos M.D. Jun 02, 2019 14:00
[2019-06-02 16:00] VITALS: BP 151/69
--- NOTE | 2019-06-02 16:30 | NUR ---
NURSE NOTES: Patient is still on venturi mask 14L, 55%. No distress/SOB noted. Patient denies any pain/discomfort at this time.
--- NOTE | 2019-06-02 19:25 | NUR ---
HAND-OFF: Report given to MARLENY Pepper. Endorsed plan of care.
--- NOTE | 2019-06-02 19:30 | NUR ---
NURSE NOTES: Received report from MARLENY Morales. Patient is awake,alert able to verbalize needs to staff. On Venturi mask with FiO2 55%. O2 sat 100% on the monitor. SR on the monitor HR 86. No s/s of acute distress noted. IV sites intact no s/s of infiltration. Right upper arm AV shunt noted with bruits + and thrill +. airborne precaution R/O COVID 19 maintained and observed. bed alarm on. bed locked and in low position. Encouraged patient to verbalized needs, fears and feelings to staff. Temp 97.8 Axillary. Instructed patient to use call light for assistance. Call light within easy reach. will continue plan of care.
[2019-06-02 20:00] VITALS: BP 173/100
--- NOTE | 2019-06-02 20:19 | Consultation ---
History of Present Illness General Date patient seen: Jun 02, 2019 Reason for Hospitalization: Dyspnea/Respdistress Present Illness HPI This is a pleasant 53-year-old male with multiple medical committees including diabetes, hypertension, renal failure on dialysis, hyperlipidemia, CVA, peripheral vascular disease, prior right foot amputation, status post left low BKA who presented with shortness of breath fever and chills and is currently admitted for evaluation work-up of possible concerns of covid 19 on admission identified to have opening and dehiscence flap of the left BKA and sutures in place. Surgery called to evaluate and assist with care. Patient seen, patient evaluated, chart reviewed Allergies: Coded Allergies: NO KNOWN ALLERGIES (Verified Allergy, Unknown, 12/04/17) Medication History Scheduled Amlodipine Besylate* (Amlodipine Besylate*), 10 MG ORAL DAILY, (Reported) Ascorbic Acid* (Vitamin C*), 500 MG ORAL DAILY, (Reported) Aspirin* (Aspir 81*), 81 MG ORAL DAILY, (Reported) Clonidine Hcl* (Catapres*), 0.1 MG ORAL EVERY 6 HOURS, (Reported) Clopidogrel Bisulfate* (Plavix*), 75 MG ORAL DAILY, (Reported) Docusate Sodium* (Colace*), 100 MG ORAL DAILY, (Reported) Folic Acid* (Folic Acid*), 1 MG ORAL DAILY, (Reported) Folic Acid/Vitamin B Comp W-C (Ashlie-Brian Tablet), 0.8 MG PO DAILY, (Reported) Insulin Glargine (Lantus), 10 SUBQ 8am, (Reported) Insulin Lispro (Humalog), 6 SUBQ TID, (Reported) Losartan Potassium* (Cozaar*), 100 MG ORAL DAILY, (Reported) Multivitamin with Minerals (Multivitamins with Minerals), 1 TAB ORAL DAILY, ( Reported) Pantoprazole* (Protonix*), 40 MG ORAL DAILY, (Reported) Pravastatin Sod* (Pravachol*), 80 MG ORAL BEDTIME, (Reported) Trazodone* (Trazodone*), 50 MG ORAL BEDTIME, (Reported) Scheduled PRN Hydrocodone Bit/Acetaminophen 5-325* ([place] 5-325 Tablet*), 1 TAB ORAL Q4H PRN for For Pain, (Reported) Miscellaneous Medications Cholecalciferol (Vitamin D3) (Vitamin D3), 1,000 UNIT PO, (Reported) Cranberry Fruit Concentrate (Cranberry), 900 MG PO, (Reported) Zinc (Zinc), 220 MG ORAL, (Reported) Discontinued Medications Amlodipine Besylate (Norvasc), 5 MG ORAL DAILY, (Reported) Discontinued Reason: Pt stopped taking med Aspirin* (Aspirin*), 81 MG ORAL DAILY, (Reported) Discontinued Reason: Pt stopped taking med Atorvastatin (Lipitor), 10 MG ORAL BEDTIME, (Reported) Discontinued Reason: Pt stopped taking med Cefepime Hcl/D5w (Cefepime-Dextrose 1 Gm/50 Ml), 500 MG IVPB Q24H Discontinued Reason: Pt stopped taking med Epoetin Daniel (Procrit), 5,000 UNITS SUBQ TUE-TUE-TUE Discontinued Reason: Pt stopped taking med Escitalopram Oxalate* (Lexapro*), 10 MG ORAL DAILY, (Reported) Discontinued Reason: Pt stopped taking med Fluconazole* (Diflucan*), 200 MG ORAL DAILY Discontinued Reason: Pt stopped taking med Hydralazine Hcl* (Hydralazine Hcl*), 50 MG ORAL EVERY 8 HOURS, (Reported) Discontinued Reason: Pt stopped taking med Isosorbide Mononitrate (Isosorbide Mononitrate Er), 30 MG PO, (Reported) Discontinued Reason: Pt stopped taking med Metoprolol Succinate* (Metoprolol Succinate*), 200 MG ORAL DAILY, (Reported) Discontinued Reason: Pt stopped taking med Robinson/Polymyx B Sulf/Dexameth (Thnlnw-Puqlv-Mdmzoglt Eye Drop), 3.5 ML OP, ( Reported) Discontinued Reason: Pt stopped taking med Pravastatin Sod* (Pravastatin Sod*), 40 MG ORAL BEDTIME, (Reported) Discontinued Reason: Pt stopped taking med Promethazine HCl/Codeine (Prometh-Codein 6.25-10 mg/5 ml), 5 ML PO, (Reported) Discontinued Reason: Pt stopped taking med Sevelamer Carbonate* (Renvela*), 800 MG ORAL THREE TIMES A DAY, (Reported) Discontinued Reason: Pt stopped taking med Sucroferric Oxyhydroxide (Velphoro), 500 MG PO, (Reported) Discontinued Reason: Pt stopped taking med Sucroferric Oxyhydroxide (Velphoro), 500 MG PO, (Reported) Discontinued Reason: Pt stopped taking med Temazepam* (Restoril*), 15 MG ORAL HSPRN PRN Discontinued Reason: Pt stopped taking med Valsartan (Diovan), 160 MG ORAL DAILY, (Reported) Discontinued Reason: Pt stopped taking med Patient History Limited by: medical condition History Provided By: Patient, Medical Record, PMD Healthcare decision maker Resuscitation status Full Code Advanced Directive on File Past Medical/Surgical History Past Medical/Surgical History: (1) 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 (2) Acute osteomyelitis of metatarsal bone of right foot (3) Ulcer of amputation stump of foot (4) Diabetic neuropathy (5) Encephalopathy (6) Altered mental status (7) Diabetic nephropathy (8) mdd (9) Right foot pain (10) Sepsis (11) Osteomyelitis of left foot (12) Respiratory distress (13) Pulmonary edema (14) ESRD (end stage renal disease) (15) HTN (hypertension) (16) Diabetes mellitus Review of Systems Review of Symptoms General ROS: no weight loss or fever Psychological ROS: no depression or mood changes, no memory loss Ophthalmic ROS: no visual changes or eye irritation ENT ROS: no nasal congestion, hearing loss, dizziness Allergy and Immunology ROS: no allergic symptoms or urticaria Hematological and Lymphatic ROS: no swollen glands, unusual bleeding or bruising Endocrine ROS: no polyuria, polydipsia, weight changes, temperature intolerance Respiratory ROS: no cough, shortness of breath, or wheezing Cardiovascular ROS: no chest pain or dyspnea on exertion Gastrointestinal ROS: denies abdominal pain, bright red blood in stool. Musculoskeletal ROS: no myalgias or arthralgias Neurological ROS: no TIA or stroke symptoms Dermatological ROS: no new or changing skin lesions, rashes or pruritis Physical Exam Physical Exam General appearance: alert, cooperative, no distress, appears stated age Head: Normocephalic, without obvious abnormality, atraumatic Eyes: conjunctivae/corneas clear. PERRL, EOM's intact. Fundi benign Throat: Lips, mucosa, and tongue normal. Teeth and gums normal Neck: supple, symmetrical, trachea midline, no adenopathy, thyroid: not enlarged, symmetric, no tenderness/mass/nodules, no carotid bruit and no JVD Lungs: clear to auscultation bilaterally Heart: regular rate and rhythm, S1, S2 normal, no murmur, click, rub or gallop Abdomen: soft, non-tender. Bowel sounds normal. No masses, no organomegaly Extremities: extremities normal, atraumatic, no cyanosis or edema Pulses: 2+ and symmetric Skin: Skin color, texture, turgor normal. No rashes or lesions Neurologic: Grossly normal Last 24 Hour Vital Signs Date Time Temp Pulse Resp B/P (MAP) Pulse Ox O2 Delivery O2 Flow Rate FiO2 06/02/19 16:00 Venturi Mask 14.0 06/02/19 16:00 93 06/02/19 16:00 14.0 06/02/19 16:00 97.2 80 24 151/69 (96) 98 06/02/19 12:00 97.7 105 24 152/88 (109) 98 06/02/19 12:00 14.0 06/02/19 12:00 Venturi Mask 14.0 06/02/19 12:00 96 06/02/19 08:15 103 172/108 06/02/19 08:14 172/108 06/02/19 08:00 107 06/02/19 08:00 14.0 06/02/19 08:00 Venturi Mask 14.0 06/02/19 08:00 97.1 103 24 172/108 (129) 100 06/02/19 07:27 127 24 100 06/02/19 04:00 14.0 06/02/19 04:00 Venturi Mask 14.0 06/02/19 04:00 101.4 127 24 135/78 (97) 97 06/02/19 03:51 130 06/02/19 02:37 134 22 100 40 06/02/19 01:08 131 23 99 40 06/02/19 00:00 100.1 137 26 178/62 (100) 93 06/02/19 00:00 Bi-pap 06/01/19 23:58 134 06/01/19 23:04 136 19 99 40 06/01/19 20:58 134 26 100 40 Intake and Output 06/01/19 06/02/19 19:00 07:00 Intake Total 110 ml 1240 ml Output Total 4000 ml 4000 ml Balance -3890 ml -2760 ml Intake Oral 1240 ml IV Total 110 ml Output Hemodialysis UF 4000 ml 4000 ml Laboratory Tests Test 06/02/19 07:05 06/02/19 09:00 Arterial Blood pH 7.474 (7.350-7.450) Arterial Blood Partial Pressure CO2 37.2 mmHg (35.0-45.0) Arterial Blood Partial Pressure O2 79.6 mmHg (75.0-100.0) Arterial Blood HCO3 26.7 mmol/L (22.0-26.0) H Arterial Blood Oxygen Saturation 95.1 % (95-100) Arterial Blood Base Excess 3.0 (-2-2) H Ruperto Test Positive White Blood Count 10.9 K/UL (4.8-10.8) H Red Blood Count 2.99 M/UL (4.70-6.10) L Hemoglobin 9.3 G/DL (14.2-18.0) L Hematocrit 27.9 % (42.0-52.0) L Mean Corpuscular Volume 93 FL (80-99) Mean Corpuscular Hemoglobin 31.1 PG (27.0-31.0) H Mean Corpuscular Hemoglobin Concent 33.4 G/DL (32.0-36.0) Red Cell Distribution Width 17.0 % (11.6-14.8) H Platelet Count 158 K/UL (150-450) Mean Platelet Volume 6.5 FL (6.5-10.1) Neutrophils (%) (Auto) 83.1 % (45.0-75.0) H Lymphocytes (%) (Auto) 10.4 % (20.0-45.0) L Monocytes (%) (Auto) 5.0 % (1.0-10.0) Eosinophils (%) (Auto) 0.6 % (0.0-3.0) Basophils (%) (Auto) 0.9 % (0.0-2.0) Sodium Level 143 MMOL/L (136-145) Potassium Level 4.6 MMOL/L (3.5-5.1) Chloride Level 100 MMOL/L (98-107) Carbon Dioxide Level 29 MMOL/L (21-32) Anion Gap 14 mmol/L (5-15) Blood Urea Nitrogen 66 mg/dL (7-18) H Creatinine 8.0 MG/DL (0.55-1.30) H Estimat Glomerular Filtration Rate 8.6 mL/min (>60) Glucose Level 211 MG/DL (74-106) H Calcium Level 9.9 MG/DL (8.5-10.1) Total Bilirubin 0.7 MG/DL (0.2-1.0) Aspartate Amino Transf (AST/SGOT) 98 U/L (15-37) H Alanine Aminotransferase (ALT/SGPT) 153 U/L (12-78) H Alkaline Phosphatase 139 U/L (46-116) H Total Protein 8.5 G/DL (6.4-8.2) H Albumin 3.2 G/DL (3.4-5.0) L Globulin 5.3 g/dL Albumin/Globulin Ratio 0.6 (1.0-2.7) L Height (Feet): 5 Height (Inches): 8.00 Weight (Pounds): 175 Medications Current Medications Medications (Trade) Dose Ordered Sig/Felix Route PRN Reason Start Time Stop Time Status Last Admin Dose Admin Acetaminophen (Tylenol) 650 mg Q4H PRN ORAL Mild Pain (Pain Scale 1-3) 05/31/19 13:30 06/30/19 13:29 Acetaminophen/ Hydrocodone Bitart ([place] 5/325) 1 tab Q4H PRN ORAL For Pain 05/31/19 13:30 06/07/19 13:29 Albuterol/ Ipratropium (Albuterol/ Ipratropium) 3 ml Q4H PRN HHN Shortness of Breath 05/31/19 13:30 06/05/19 13:29 05/31/19 22:34 Albuterol/ Ipratropium (Combivent Respimat) 2 puffs Q4H PRN INH Shortness of Breath 06/01/19 17:45 07/01/19 17:44 Amlodipine Besylate (Norvasc) 10 mg DAILY ORAL 06/01/19 09:00 07/01/19 08:59 06/02/19 08:15 Aspirin (Ecotrin) 81 mg DAILY ORAL 06/01/19 09:00 07/16/19 08:59 06/02/19 08:14 Ceftriaxone Sodium 1 gm/ Dextrose 55 ml @ 110 mls/hr Q24H IVPB 06/01/19 12:00 06/08/19 11:59 06/02/19 12:27 Clonidine HCl (Catapres Tab) 0.1 mg Q6H PRN ORAL SBP > 180 05/31/19 23:00 08/29/19 22:59 05/31/19 23:57 Clopidogrel Bisulfate (Plavix) 75 mg DAILY ORAL 06/01/19 09:00 07/01/19 08:59 06/02/19 08:14 Dextrose (Dextrose 50%) 25 ml Q30M PRN IV Hypoglycemia 05/31/19 13:30 08/29/19 13:29 Dextrose (Dextrose 50%) 50 ml Q30M PRN IV Hypoglycemia 05/31/19 13:30 08/29/19 13:29 Diphenhydramine HCl (Benadryl) 25 mg Q6H PRN ORAL Itching/Pruritis 05/31/19 13:30 06/30/19 13:29 Docusate Sodium (Colace) 100 mg TID ORAL 06/02/19 13:00 06/30/19 20:59 06/02/19 17:23 Folic Acid (Folate) 1 mg DAILY ORAL 06/01/19 09:00 07/01/19 08:59 06/02/19 08:15 Heparin Sodium (Porcine) (Heparin 5000 units/ml) 5,000 units EVERY 12 HOURS SUBQ 05/31/19 21:00 07/15/19 20:59 06/02/19 08:53 Heparin Sodium (Porcine) (Heparin Sod 1000 units/ml 10ml) 2,000 unit ONCE PRN IV dialysis 06/02/19 09:00 06/02/19 23:59 Hydralazine HCl (Apresoline) 25 mg Q6H PRN ORAL SBP>170 06/01/19 03:00 08/30/19 02:59 Insulin Aspart (NovoLOG) BEFORE MEALS AND HS SUBQ 05/31/19 16:30 08/29/19 16:29 06/02/19 16:22 Insulin Detemir (Levemir) 10 units DAILY SUBQ 06/01/19 09:00 08/30/19 08:59 06/01/19 10:04 Lorazepam (Ativan) 1 mg Q4H PRN ORAL For Anxiety 05/31/19 13:30 06/07/19 13:29 Losartan Potassium (Cozaar) 100 mg DAILY ORAL 06/01/19 09:00 07/01/19 08:59 06/02/19 08:14 Multivitamins Therapeutic (Therapeutic Multivitamin) 1 ea DAILY ORAL 06/01/19 09:00 07/01/19 08:59 06/02/19 08:14 Nitroglycerin (Ntg) 0.4 mg Q5M PRN SL Prn Chest Pain 05/31/19 13:30 06/30/19 13:29 Pantoprazole (Protonix) 40 mg BID ORAL 06/02/19 18:00 07/01/19 08:59 06/02/19 17:23 Pravastatin Sodium (Pravachol) 80 mg BEDTIME ORAL 05/31/19 21:00 06/30/19 20:59 05/31/19 20:21 Trazodone HCl (Desyrel) 50 mg BEDTIME ORAL 05/31/19 21:00 06/30/19 20:59 Assessment/Plan Problem List: (1) Osteomyelitis of left foot Assessment & Plan: Patient with history of left foot amputation currently identified to have a 1 cm dehiscence at the apex of the amputation flap. It is dry with a scab does not seem to have any underlying fluctuance fluid collection or infection. It is a skin dehiscence but will require local wound care until improved. Furthermore sutures still in place and were removed at the bedside by myself. Once sutures removed the remaining the flap was evaluated and identified to be intact Well. No signs of active infection throughout the stump. Viable stump identified. No nausea vomiting. Labs noted. We will continue with local wound care. Full respiratory and isolation precautions were followed upon entering the room given patient's admission condition. PPD worn during examination and procedure ICD Codes: M86.9 - Osteomyelitis, unspecified SNOMED: [id number] (2) Ulcer of amputation stump of foot Assessment & Plan: Wash daily with normal saline, apply Thera honey followed by OPTi foam dressing daily and as needed saturation ICD Codes: T87.89 - Other complications of amputation stump; L97.509 - Non- pressure chronic ulcer of other part of unspecified foot with unspecified severity SNOMED: [id number], [id number] Bentley Wharton Jun 02, 2019 20:19
[2019-06-02] MEDS: TraZODone 50mg tab ORAL SCH (20:31)
[2019-06-02] MEDS: HYDROcodone/Acetamin 5/325 tab ORAL PRN (20:31)
--- NOTE | 2019-06-02 21:24 | NUR ---
NURSE NOTES: seen and examined by Dr. Akiko MD removed sutures on left foot amputation with new treatment order.
[2019-06-03] VITALS (8 sets, daily range): BP systolic 126–204; BP diastolic 75–114
--- NOTE | 2019-06-03 | NUR ---
NURSE NOTES: Patient in bed sleeping comfortably. no s/s of acute distress noted. No fever. no N/V. No diarrhea. no s/s of hypo/hyperglycemia. Continue on Venturi mask 14L satting 100%. HOB elevated. airborne, droplet and contact isolation maintained and observed. frequent visual checks continued. will continue plan of care.
[2019-06-03] MEDS: NovoLOG Insulin Flexpen SUBQ SCH ×4 (06:14→21:00)
--- NOTE | 2019-06-03 07:00 | NUR ---
NURSE NOTES: seen and examined by Dr. Cisneros no new order at this time. patient awake,alert able to verbalize needs to staff. Patient watching TV. Denies any pain or discomfort. call light within easy reach.
[2019-06-03 07:07] LABS: BASOPHILS % (AUTO) 1.4 % (0.0-2.0); EOSINOPHILS % (AUTO) 3.6 % (0.0-3.0); HEMATOCRIT 27.9 % (42.0-52.0); HEMOGLOBIN 9.3 G/DL (14.2-18.0); MEAN CORPUSCULAR VOLUME 93 FL (80-99); MONOCYTES % (AUTO) 7.9 % (1.0-10.0); NEUTROPHILS % (AUTO) 74.1 % (45.0-75.0); PLATELET COUNT 159 K/UL (150-450); RED BLOOD COUNT 3.01 M/UL (4.70-6.10); RED CELL DISTRIBUTION WIDTH 16.6 % (11.6-14.8); WHITE BLOOD COUNT 6.3 K/UL (4.8-10.8)
--- NOTE | 2019-06-03 07:20 | NUR ---
HAND-OFF: Report given to Michel FARMER.
--- NOTE | 2019-06-03 07:21 | NUR ---
NURSE NOTES: Late entry: PT and report received from MARLENY Pepper; PT AAOx3-4; pleasant; opens eyes spontaneous, no S/S of respiratory distress on venturi 14L/55%; saturating at 97% no fever noted during morning rounds; PT is on airborne / droplet isolation; PT placed on hardwire to surveillance system monitor NSR @ HR 92; on cardiac diet, breakfast given; PT is anuric; PIV L-AC 20g and L-wrist 20g; also has COURTNEY-AV shunt for dialysis access; PT is scheduled for dialysis today, dialysis is confirmed dialysis nurse Eliza called, will continue to monitor PT.
[2019-06-03 08:22] LABS: % IRON SATURATION 106 % (15-50); IRON 118 ug/dL (50-175); TOTAL IRON BINDING CAPACITY 111 ug/dL (250-450)
[2019-06-03 08:30] LABS: ALANINE AMINOTRANSFERASE 135 U/L (12-78); ALBUMIN/GLOBULIN RATIO 0.6 (1.0-2.7); ALKALINE PHOSPHATASE 125 U/L (46-116); ANION GAP 15 mmol/L (5-15); ASPARTATE AMINO TRANSFERASE 60 U/L (15-37); BILIRUBIN,TOTAL 0.5 MG/DL (0.2-1.0); BLOOD UREA NITROGEN 83 mg/dL (7-18); CALCIUM 9.7 MG/DL (8.5-10.1); CARBON DIOXIDE 27 MMOL/L (21-32); CHLORIDE 99 MMOL/L (98-107); CHOLESTEROL 171 MG/DL (< 200); CREATININE 9.4 MG/DL (0.55-1.30); GAMMA GLUTAMYL TRANSPEPTIDASE 47 U/L (5-85); HDL CHOLESTEROL 56 MG/DL (40-60); PHOSPHORUS 5.4 MG/DL (2.5-4.9); POTASSIUM 4.5 MMOL/L (3.5-5.1); SODIUM 141 MMOL/L (136-145); TRIGLYCERIDES 99 MG/DL (30-150)
[2019-06-03] MEDS: Aspirin EC 81mg tab ORAL SCH (08:37)
[2019-06-03] MEDS: Multivitamin w/Minerals tab ORAL SCH (08:38)
[2019-06-03] MEDS: Heparin 5000 units/ml inj SUBQ SCH ×2 (08:41→20:26)
[2019-06-03] MEDS: Docusate 100mg cap ORAL SCH ×3 (09:00→17:11)
[2019-06-03] MEDS: Losartan 50mg tab ORAL SCH (09:00)
--- NOTE | 2019-06-03 09:03 | General Progress Note ---
Assessment/Plan Assessment/Plan: #ESRD on HD #Acute pulmonary edema #Acute hypoxic respiratory failure #Possible bilateral pneumonia, less likely given improved with fluid removal - repeat CXR 05/31 w/worsening b/l diffuse parenchymal dz - HD and UF per Renal - continue abx per ID - Follow up COVID19 - Pulm and ID consulted - Nephrology following - plan for HD today w/UF #L BKA wound dehiscence #s/p L BKA 04/19/2019 #S/p LLE I&&D w/ debridement and wound vac placement 05/17/19, cultures growing Indu glabrata -local wound care -cont micafungin until 06/04 as per ID recs -ID recs appreciated -Podiatry consulted, Dr. Lane for possible stitches removal- states does not do post operative care -Gen surgery consulted, stiches removed, surgical site c/d/i #Anemia of chronic disease - Hgb currently higher than prior baseline of ~7-8 - Monitor CBC #Transaminitis -cont. to monitor -hepB pending -obtain Abd US -GI consulted, recs appreciated #DM complicated by neuropathy #Hyperglycemia uncontrolled - Continue lantus 10 units subq daily - SSI lispro - Carb controlled diet #HTN #HLD #elevated BNP -Cont Losartan 100mg daily -norvasc 10mg, daily -Cont Clonidine PRN -Start hydralazine 10 mg PO q6h -Cont Statin -Cardiology consulted, Dr. Falcon, recs appreciated #GERD Cont Protonix I spent 35 minutes on this patient's case, and >50% was dedicated to counseling and/or care coordination. Subjective Allergies: Coded Allergies: NO KNOWN ALLERGIES (Verified Allergy, Unknown, 12/04/17) Subjective Follow up for acute hypoxic resp failure, fluid overload, acute pulm edema Pt w/fever overnight, now resolved. Hypertensive prior to meds being administered. Pt denies any SOB, currently on Ventimask, tolerating mask. States he is feeling better today Objective Last 24 Hour Vital Signs Date Time Temp Pulse Resp B/P (MAP) Pulse Ox O2 Delivery O2 Flow Rate FiO2 06/03/19 04:00 Venturi Mask 14.0 06/03/19 04:00 97.4 85 19 160/90 (113) 100 06/03/19 04:00 14.0 06/03/19 04:00 78 06/03/19 00:00 97.3 75 22 145/90 (108) 98 06/03/19 00:00 Venturi Mask 14.0 06/03/19 00:00 77 06/03/19 00:00 14.0 06/02/19 21:01 97.2 06/02/19 20:50 177/110 06/02/19 20:00 97.7 80 22 173/100 (124) 98 06/02/19 20:00 14.0 06/02/19 20:00 87 06/02/19 20:00 Venturi Mask 14.0 06/02/19 16:00 Venturi Mask 14.0 06/02/19 16:00 93 06/02/19 16:00 14.0 06/02/19 16:00 97.2 80 24 151/69 (96) 98 06/02/19 12:00 97.7 105 24 152/88 (109) 98 06/02/19 12:00 14.0 06/02/19 12:00 Venturi Mask 14.0 06/02/19 12:00 96 Intake and Output 06/02/19 06/03/19 19:00 07:00 Intake Total 555 ml 100 ml Balance 555 ml 100 ml Intake Oral 500 ml 100 ml IV Total 55 ml # Bowel Movements 6 Laboratory Tests 06/03/19 06:30: White Blood Count 6.3, Red Blood Count 3.01L, Hemoglobin 9.3L, Hematocrit 27.9L , Mean Corpuscular Volume 93, Mean Corpuscular Hemoglobin 30.8, Mean Corpuscular Hemoglobin Concent 33.2, Red Cell Distribution Width 16.6H, Platelet Count 159, Mean Platelet Volume 6.0L, Neutrophils (%) (Auto) 74.1, Lymphocytes (%) (Auto) 13.0L, Monocytes (%) (Auto) 7.9, Eosinophils (%) (Auto) 3.6H, Basophils (%) (Auto) 1.4, Sodium Level 141, Potassium Level 4.5, Chloride Level 99, Carbon Dioxide Level 27, Anion Gap 15, Blood Urea Nitrogen 83H, Creatinine 9.4H, Estimat Glomerular Filtration Rate 7.2, Glucose Level 191H, Hemoglobin A1c 6.6H, Lactic Acid Level 0.80, Uric Acid 5.4, Calcium Level 9.7, Phosphorus Level 5.4H, Magnesium Level 2.5H, Iron Level [Pending], Unsaturated Iron Binding [Pending], Ferritin 687H, Total Bilirubin 0.5, Gamma Glutamyl Transpeptidase 47, Aspartate Amino Transf (AST/SGOT) 60H, Alanine Aminotransferase (ALT/SGPT) 135H, Alkaline Phosphatase 125H, C-Reactive Protein , Quantitative [Pending], Pro-B-Type Natriuretic Peptide > 28767L, Total Protein 8.0, Albumin 3.0L, Globulin 5.0, Albumin/Globulin Ratio 0.6L, Triglycerides Level 99, Cholesterol Level 171, LDL Cholesterol 57, HDL Cholesterol 56, Cholesterol/HDL Ratio 3.1L, Vitamin B12 Level 1299H, Folate 58.6 Height (Feet): 5 Height (Inches): 8.00 Weight (Pounds): 175 Objective General Appearance: alert, awake, NAD Neck: normal alignment, supple Cardiovascular: normal rate, regular rhythm Respiratory/Chest: lungs clear, normal breath sounds, no respiratory distress, on Ventimask, tolerating well Abdomen: non tender, soft Ext: Left BKA, stitches removed, c/d/i Adithya Cesar M.D. Jun 03, 2019 09:02
[2019-06-03] MEDS: Levemir Flexpen SUBQ SCH (09:06)
[2019-06-03 09:19] LABS: FERRITIN > 2000 NG/ML (8-388)
--- NOTE | 2019-06-03 09:20 | NUR ---
NURSE NOTES: Scheduled BP meds on hold, dialysis nurse is at bedside readying PT for dialysis. Will continue to monitor PT, MICHAEL Yoo made aware.
--- NOTE | 2019-06-03 09:32 | NUR ---
NURSE NOTES: MD Belia made rounds, updates given confirmed that PT is going to get dialysis now, no new orders given.
--- NOTE | 2019-06-03 10:12 | NUR ---
NURSE NOTES: PT currently getting dialysis, PT BP is coming down. Will continue to monitor.
--- NOTE | 2019-06-03 10:30 | NUR ---
NURSE NOTES: PT BP equipment monitor phototypesetting showing 139/81, PT getting dialysis currently, BP improving. Will continue to monitor.
--- NOTE | 2019-06-03 11:12 | Pulmonology Progress Note ---
Assessment/Plan Assessment/Plan Pulmonary Progress Note HPI 53-year-old male with past medical history of ESRD on HD, HTN, IDDM with neuropathy, HTN, HLD, prior CVA, PVD s/p L BKA (04/19/2019) admitted with severe dyspnea, chest pressure, fevers, cough, denies foreign travel, room mate has been sick. CXR suggestive of aute pulmonary edema/fluid overload. Started on BiPAP with improvement in oxygenation on blood gas and presenting symptoms of dyspnea. Improving CXR with daily HD Covid 19 pending Allergies: NO KNOWN ALLERGIES Past Medical History: ESRD on HD, Diabetes Mellitus, Peripheral Neuropathy, Hypertension, Hyperlipidemia, PVD, Left BKA Resuscitation status Full code Review of Systems: Constitutional: Denies: chills, sweats, fever Respiratory: Reports: shortness of breath; Denies: cough, orthopnea, stridor, wheezing Cardiovascular: Denies: chest pain, edema, palpitations Gastrointestinal: Denies: abdominal pain Genitourinary: Denies: dysuria Musculoskeletal: Denies: back pain Skin: Denies: rash Neurological: Denies: headache Physical Exam Height (Feet): 5 Height (Inches): 7.00 Weight (Pounds): 180 Vital Signs Noted General Appearance: no apparent distress, alert HEENT: atraumatic, anicteric Neck: normal alignment, supple, normal inspection Respiratory/Chest: lno respiratory distress, no accessory muscle use, basal crackles, reduced basal BS Cardiovascular/Chest: normal rate, regular rhythm Abdomen: non tender, soft, no organomegaly Extremities: non-tender, normal inspection, Left BKA bandaged Neurologic: tax adjuster II-XII grossly normal, no motor/sensory deficits Laboratory Tests Noted Microbiology Date/Time Source Procedure Growth Status 05/31/19 12:00 Rectum Received EKG: ST, no acute ST changes CXR: Bilateral parenchymal infiltrates Assessment: ESRD on HD Volume Overload Hypoxic Respiratory Failure Possible Pneumonia/Viral Illness Hypertension IDDM with neuropathy Prior CVA PVD s/p L BKA, candidal stump infection Hyperlipidemia Anemia GERD Plan: HD per Renal Antibiotics per ID Await cultures Viral studies pending Isolation O2/BiPAP PRN BiPAP PRN PPX Monitor labs Subjective ROS Limited/Unobtainable: No Allergies: Coded Allergies: NO KNOWN ALLERGIES (Verified Allergy, Unknown, 12/04/17) Objective Last 24 Hour Vital Signs Date Time Temp Pulse Resp B/P (MAP) Pulse Ox O2 Delivery O2 Flow Rate FiO2 06/03/19 10:30 84 13 139/81 (100) 100 06/03/19 10:00 89 13 183/102 (129) 100 06/03/19 09:00 204/114 06/03/19 09:00 92 204/114 06/03/19 08:00 Venturi Mask 14.0 06/03/19 08:00 97.4 92 19 204/114 (144) 98 06/03/19 08:00 14.0 06/03/19 08:00 81 06/03/19 04:00 Venturi Mask 14.0 06/03/19 04:00 97.4 85 19 160/90 (113) 100 06/03/19 04:00 14.0 06/03/19 04:00 78 06/03/19 00:00 97.3 75 22 145/90 (108) 98 06/03/19 00:00 Venturi Mask 14.0 06/03/19 00:00 77 06/03/19 00:00 14.0 06/02/19 21:01 97.2 06/02/19 20:50 177/110 06/02/19 20:00 97.7 80 22 173/100 (124) 98 06/02/19 20:00 14.0 06/02/19 20:00 87 06/02/19 20:00 Venturi Mask 14.0 06/02/19 16:00 Venturi Mask 14.0 06/02/19 16:00 93 06/02/19 16:00 14.0 06/02/19 16:00 97.2 80 24 151/69 (96) 98 06/02/19 12:00 97.7 105 24 152/88 (109) 98 06/02/19 12:00 14.0 06/02/19 12:00 Venturi Mask 14.0 06/02/19 12:00 96 Intake and Output 06/02/19 06/03/19 19:00 07:00 Intake Total 555 ml 100 ml Balance 555 ml 100 ml Intake Oral 500 ml 100 ml IV Total 55 ml # Bowel Movements 6 Microbiology Date/Time Source Procedure Growth Status 06/01/19 14:00 Sputum Gram Stain - Final Complete 06/01/19 14:00 Sputum Sputum Culture - Final NORMAL UPPER RESPIRATORY DARREN PRESENT Complete 06/01/19 06:00 Nasal Nares - Final Complete 06/01/19 06:00 Nasal Nares - Final Complete 05/31/19 12:00 Nasal Nares MRSA Culture - Final NO METHICILLIN RESISTANT STAPH AUREUS... Complete 05/31/19 12:00 Rectum VRE Culture - Final Enterococcus Faecium - Vre Complete 05/31/19 12:00 Rectum - Final NO CARBAPENEM-RESISTANT ENTEROBACTERI... Complete Laboratory Tests 06/03/19 06:30: White Blood Count 6.3, Red Blood Count 3.01L, Hemoglobin 9.3L, Hematocrit 27.9L , Mean Corpuscular Volume 93, Mean Corpuscular Hemoglobin 30.8, Mean Corpuscular Hemoglobin Concent 33.2, Red Cell Distribution Width 16.6H, Platelet Count 159, Mean Platelet Volume 6.0L, Neutrophils (%) (Auto) 74.1, Lymphocytes (%) (Auto) 13.0L, Monocytes (%) (Auto) 7.9, Eosinophils (%) (Auto) 3.6H, Basophils (%) (Auto) 1.4, Sodium Level 141, Potassium Level 4.5, Chloride Level 99, Carbon Dioxide Level 27, Anion Gap 15, Blood Urea Nitrogen 83H, Creatinine 9.4H, Estimat Glomerular Filtration Rate 7.2, Glucose Level 191H, Hemoglobin A1c 6.6H, Lactic Acid Level 0.80, Uric Acid 5.4, Calcium Level 9.7, Phosphorus Level 5.4H, Magnesium Level 2.5H, Iron Level 118, Total Iron Binding Capacity 111L, Percent Iron Saturation 106H, Unsaturated Iron Binding -7L, Ferritin > 2000H, Total Bilirubin 0.5, Gamma Glutamyl Transpeptidase 47, Aspartate Amino Transf (AST/SGOT) 60H, Alanine Aminotransferase (ALT/SGPT) 135H , Alkaline Phosphatase 125H, C-Reactive Protein, Quantitative 20.8H, Pro-B-Type Natriuretic Peptide > 48545E, Total Protein 8.0, Albumin 3.0L, Globulin 5.0, Albumin/Globulin Ratio 0.6L, Triglycerides Level 99, Cholesterol Level 171, LDL Cholesterol 57, HDL Cholesterol 56, Cholesterol/HDL Ratio 3.1L, Vitamin B12 Level 1299H, Folate 58.6 Current Medications Medications (Trade) Dose Ordered Sig/Felix Route PRN Reason Start Time Stop Time Status Last Admin Dose Admin Acetaminophen (Tylenol) 650 mg Q4H PRN ORAL Mild Pain (Pain Scale 1-3) 05/31/19 13:30 06/30/19 13:29 Acetaminophen/ Hydrocodone Bitart ([place] 5/325) 1 tab Q4H PRN ORAL For Pain 05/31/19 13:30 06/07/19 13:29 06/02/19 20:31 Albuterol/ Ipratropium (Albuterol/ Ipratropium) 3 ml Q4H PRN HHN Shortness of Breath 05/31/19 13:30 06/05/19 13:29 05/31/19 22:34 Albuterol/ Ipratropium (Combivent Respimat) 2 puffs Q4H PRN INH Shortness of Breath 06/01/19 17:45 07/01/19 17:44 Amlodipine Besylate (Norvasc) 10 mg DAILY ORAL 06/01/19 09:00 07/01/19 08:59 06/02/19 08:15 Aspirin (Ecotrin) 81 mg DAILY ORAL 06/01/19 09:00 07/16/19 08:59 06/03/19 08:37 Ceftriaxone Sodium 1 gm/ Dextrose 55 ml @ 110 mls/hr Q24H IVPB 06/01/19 12:00 06/08/19 11:59 06/02/19 12:27 Clonidine HCl (Catapres Tab) 0.1 mg Q6H PRN ORAL SBP > 180 05/31/19 23:00 08/29/19 22:59 05/31/19 23:57 Clopidogrel Bisulfate (Plavix) 75 mg DAILY ORAL 06/01/19 09:00 07/01/19 08:59 06/03/19 08:38 Dextrose (Dextrose 50%) 25 ml Q30M PRN IV Hypoglycemia 05/31/19 13:30 08/29/19 13:29 Dextrose (Dextrose 50%) 50 ml Q30M PRN IV Hypoglycemia 05/31/19 13:30 08/29/19 13:29 Diphenhydramine HCl (Benadryl) 25 mg Q6H PRN ORAL Itching/Pruritis 05/31/19 13:30 06/30/19 13:29 Docusate Sodium (Colace) 100 mg TID ORAL 06/02/19 13:00 06/30/19 20:59 06/02/19 17:23 Folic Acid (Folate) 1 mg DAILY ORAL 06/01/19 09:00 07/01/19 08:59 06/03/19 08:37 Heparin Sodium (Porcine) (Heparin 5000 units/ml) 5,000 units EVERY 12 HOURS SUBQ 05/31/19 21:00 07/15/19 20:59 06/03/19 08:41 Hydralazine HCl (Apresoline) 10 mg Q6HR ORAL 06/03/19 12:00 09/01/19 11:59 Hydralazine HCl (Apresoline) 25 mg Q6H PRN ORAL SBP>170 06/01/19 03:00 08/30/19 02:59 06/02/19 20:50 Insulin Aspart (NovoLOG) BEFORE MEALS AND HS SUBQ 05/31/19 16:30 08/29/19 16:29 06/03/19 06:14 Insulin Detemir (Levemir) 10 units DAILY SUBQ 06/01/19 09:00 08/30/19 08:59 06/03/19 09:06 Lorazepam (Ativan) 1 mg Q4H PRN ORAL For Anxiety 05/31/19 13:30 06/07/19 13:29 Losartan Potassium (Cozaar) 100 mg DAILY ORAL 06/01/19 09:00 07/01/19 08:59 06/02/19 08:14 Multivitamins Therapeutic (Therapeutic Multivitamin) 1 ea DAILY ORAL 06/01/19 09:00 07/01/19 08:59 06/03/19 08:38 Nitroglycerin (Ntg) 0.4 mg Q5M PRN SL Prn Chest Pain 05/31/19 13:30 06/30/19 13:29 Pantoprazole (Protonix) 40 mg BID ORAL 06/02/19 18:00 07/01/19 08:59 06/03/19 08:37 Pravastatin Sodium (Pravachol) 80 mg BEDTIME ORAL 05/31/19 21:00 06/30/19 20:59 06/02/19 20:30 Trazodone HCl (Desyrel) 50 mg BEDTIME ORAL 05/31/19 21:00 06/30/19 20:59 06/02/19 20:31 Jacinto Cisneros MD Jun 03, 2019 11:12
--- NOTE | 2019-06-03 11:42 | Cardiology Progress Note ---
Assessment/Plan Assessment/Plan The patient is seen and examined, full consult note is dictated. Objective Last 24 Hour Vital Signs Date Time Temp Pulse Resp B/P (MAP) Pulse Ox O2 Delivery O2 Flow Rate FiO2 06/03/19 10:30 84 13 139/81 (100) 100 06/03/19 10:00 89 13 183/102 (129) 100 06/03/19 09:00 204/114 06/03/19 09:00 92 204/114 06/03/19 08:00 Venturi Mask 14.0 06/03/19 08:00 97.4 92 19 204/114 (144) 98 06/03/19 08:00 14.0 06/03/19 08:00 81 06/03/19 04:00 Venturi Mask 14.0 06/03/19 04:00 97.4 85 19 160/90 (113) 100 06/03/19 04:00 14.0 06/03/19 04:00 78 06/03/19 00:00 97.3 75 22 145/90 (108) 98 06/03/19 00:00 Venturi Mask 14.0 06/03/19 00:00 77 06/03/19 00:00 14.0 06/02/19 21:01 97.2 06/02/19 20:50 177/110 06/02/19 20:00 97.7 80 22 173/100 (124) 98 06/02/19 20:00 14.0 06/02/19 20:00 87 06/02/19 20:00 Venturi Mask 14.0 06/02/19 16:00 Venturi Mask 14.0 06/02/19 16:00 93 06/02/19 16:00 14.0 06/02/19 16:00 97.2 80 24 151/69 (96) 98 06/02/19 12:00 97.7 105 24 152/88 (109) 98 06/02/19 12:00 14.0 06/02/19 12:00 Venturi Mask 14.0 06/02/19 12:00 96 Intake and Output 06/02/19 06/03/19 19:00 07:00 Intake Total 555 ml 100 ml Balance 555 ml 100 ml Intake Oral 500 ml 100 ml IV Total 55 ml # Bowel Movements 6 Laboratory Tests Test 06/03/19 06:30 White Blood Count 6.3 K/UL (4.8-10.8) Red Blood Count 3.01 M/UL (4.70-6.10) L Hemoglobin 9.3 G/DL (14.2-18.0) L Hematocrit 27.9 % (42.0-52.0) L Mean Corpuscular Volume 93 FL (80-99) Mean Corpuscular Hemoglobin 30.8 PG (27.0-31.0) Mean Corpuscular Hemoglobin Concent 33.2 G/DL (32.0-36.0) Red Cell Distribution Width 16.6 % (11.6-14.8) H Platelet Count 159 K/UL (150-450) Mean Platelet Volume 6.0 FL (6.5-10.1) L Neutrophils (%) (Auto) 74.1 % (45.0-75.0) Lymphocytes (%) (Auto) 13.0 % (20.0-45.0) L Monocytes (%) (Auto) 7.9 % (1.0-10.0) Eosinophils (%) (Auto) 3.6 % (0.0-3.0) H Basophils (%) (Auto) 1.4 % (0.0-2.0) Sodium Level 141 MMOL/L (136-145) Potassium Level 4.5 MMOL/L (3.5-5.1) Chloride Level 99 MMOL/L (98-107) Carbon Dioxide Level 27 MMOL/L (21-32) Anion Gap 15 mmol/L (5-15) Blood Urea Nitrogen 83 mg/dL (7-18) H Creatinine 9.4 MG/DL (0.55-1.30) H Estimat Glomerular Filtration Rate 7.2 mL/min (>60) Glucose Level 191 MG/DL (74-106) H Hemoglobin A1c 6.6 % (4.3-6.0) H Lactic Acid Level 0.80 mmol/L (0.4-2.0) Uric Acid 5.4 MG/DL (2.6-7.2) Calcium Level 9.7 MG/DL (8.5-10.1) Phosphorus Level 5.4 MG/DL (2.5-4.9) H Magnesium Level 2.5 MG/DL (1.8-2.4) H Iron Level 118 ug/dL (50-175) Total Iron Binding Capacity 111 ug/dL (250-450) L Percent Iron Saturation 106 % (15-50) H Unsaturated Iron Binding -7 ug/dL (112-346) L Ferritin > 2000 NG/ML (8-388) H Total Bilirubin 0.5 MG/DL (0.2-1.0) Gamma Glutamyl Transpeptidase 47 U/L (5-85) Aspartate Amino Transf (AST/SGOT) 60 U/L (15-37) H Alanine Aminotransferase (ALT/SGPT) 135 U/L (12-78) H Alkaline Phosphatase 125 U/L (46-116) H C-Reactive Protein, Quantitative 20.8 mg/dL (0.00-0.90) H Pro-B-Type Natriuretic Peptide > 28384 pg/mL (0-125) H Total Protein 8.0 G/DL (6.4-8.2) Albumin 3.0 G/DL (3.4-5.0) L Globulin 5.0 g/dL Albumin/Globulin Ratio 0.6 (1.0-2.7) L Triglycerides Level 99 MG/DL (30-150) Cholesterol Level 171 MG/DL (< 200) LDL Cholesterol 57 mg/dL (<100) HDL Cholesterol 56 MG/DL (40-60) Cholesterol/HDL Ratio 3.1 (3.3-4.4) L Vitamin B12 Level 1299 PG/ML (193-986) H Folate 58.6 NG/ML (8.6-58.9) Microbiology Date/Time Source Procedure Growth Status 06/01/19 14:00 Sputum Gram Stain - Final Complete 06/01/19 14:00 Sputum Sputum Culture - Final NORMAL UPPER RESPIRATORY DARREN PRESENT Complete 06/01/19 06:00 Nasal Nares - Final Complete 06/01/19 06:00 Nasal Nares - Final Complete 05/31/19 12:00 Nasal Nares MRSA Culture - Final NO METHICILLIN RESISTANT STAPH AUREUS... Complete 05/31/19 12:00 Rectum VRE Culture - Final Enterococcus Faecium - Vre Complete 05/31/19 12:00 Rectum - Final NO CARBAPENEM-RESISTANT ENTEROBACTERI... Complete Lizandro Falcon MD Jun 03, 2019 11:42
--- NOTE | 2019-06-03 11:46 | Nephrology Progress Note ---
Assessment/Plan Problem List: (1) ESRD (end stage renal disease) (2) Pulmonary edema (3) HTN (hypertension) (4) Diabetes mellitus Assessment 1) ESRD 2) Fluid overload/CHF 3) Doubt Covid-19 infection, however not impossible Plan Coverage for Dr.Kaveh Danielle patient received dialysis on May 31, twice Significant amount of ultrafiltration was executed Due for dialysis today with 4 L ultrafiltration Adjust blood pressure medications Per orders Subjective ROS Limited/Unobtainable: No Constitutional: Reports: malaise, weakness Objective Objective Last 24 Hour Vital Signs Date Time Temp Pulse Resp B/P (MAP) Pulse Ox O2 Delivery O2 Flow Rate FiO2 06/03/19 10:30 84 13 139/81 (100) 100 06/03/19 10:00 89 13 183/102 (129) 100 06/03/19 09:00 204/114 06/03/19 09:00 92 204/114 06/03/19 08:00 Venturi Mask 14.0 06/03/19 08:00 97.4 92 19 204/114 (144) 98 06/03/19 08:00 14.0 06/03/19 08:00 81 06/03/19 04:00 Venturi Mask 14.0 06/03/19 04:00 97.4 85 19 160/90 (113) 100 06/03/19 04:00 14.0 06/03/19 04:00 78 06/03/19 00:00 97.3 75 22 145/90 (108) 98 06/03/19 00:00 Venturi Mask 14.0 06/03/19 00:00 77 06/03/19 00:00 14.0 06/02/19 21:01 97.2 06/02/19 20:50 177/110 06/02/19 20:00 97.7 80 22 173/100 (124) 98 06/02/19 20:00 14.0 06/02/19 20:00 87 06/02/19 20:00 Venturi Mask 14.0 06/02/19 16:00 Venturi Mask 14.0 06/02/19 16:00 93 06/02/19 16:00 14.0 06/02/19 16:00 97.2 80 24 151/69 (96) 98 06/02/19 12:00 97.7 105 24 152/88 (109) 98 3/21/20 12:00 14.0 06/02/19 12:00 Venturi Mask 14.0 06/02/19 12:00 96 Intake and Output 06/02/19 06/03/19 19:00 07:00 Intake Total 555 ml 100 ml Balance 555 ml 100 ml Intake Oral 500 ml 100 ml IV Total 55 ml # Bowel Movements 6 Current Medications Medications (Trade) Dose Ordered Sig/Felix Route PRN Reason Start Time Stop Time Status Last Admin Dose Admin Acetaminophen (Tylenol) 650 mg Q4H PRN ORAL Mild Pain (Pain Scale 1-3) 05/31/19 13:30 06/30/19 13:29 Acetaminophen/ Hydrocodone Bitart ([place] 5/325) 1 tab Q4H PRN ORAL For Pain 05/31/19 13:30 06/07/19 13:29 06/02/19 20:31 Albuterol/ Ipratropium (Albuterol/ Ipratropium) 3 ml Q4H PRN HHN Shortness of Breath 05/31/19 13:30 06/05/19 13:29 05/31/19 22:34 Albuterol/ Ipratropium (Combivent Respimat) 2 puffs Q4H PRN INH Shortness of Breath 06/01/19 17:45 07/01/19 17:44 Amlodipine Besylate (Norvasc) 10 mg DAILY ORAL 06/01/19 09:00 07/01/19 08:59 06/02/19 08:15 Aspirin (Ecotrin) 81 mg DAILY ORAL 06/01/19 09:00 07/16/19 08:59 06/03/19 08:37 Ceftriaxone Sodium 1 gm/ Dextrose 55 ml @ 110 mls/hr Q24H IVPB 06/01/19 12:00 06/08/19 11:59 06/02/19 12:27 Clonidine HCl (Catapres Tab) 0.1 mg Q6H PRN ORAL SBP > 180 05/31/19 23:00 08/29/19 22:59 05/31/19 23:57 Clopidogrel Bisulfate (Plavix) 75 mg DAILY ORAL 06/01/19 09:00 07/01/19 08:59 06/03/19 08:38 Dextrose (Dextrose 50%) 25 ml Q30M PRN IV Hypoglycemia 05/31/19 13:30 08/29/19 13:29 Dextrose (Dextrose 50%) 50 ml Q30M PRN IV Hypoglycemia 05/31/19 13:30 08/29/19 13:29 Diphenhydramine HCl (Benadryl) 25 mg Q6H PRN ORAL Itching/Pruritis 05/31/19 13:30 06/30/19 13:29 Docusate Sodium (Colace) 100 mg TID ORAL 06/02/19 13:00 06/30/19 20:59 06/02/19 17:23 Folic Acid (Folate) 1 mg DAILY ORAL 06/01/19 09:00 07/01/19 08:59 06/03/19 08:37 Heparin Sodium (Porcine) (Heparin 5000 units/ml) 5,000 units EVERY 12 HOURS SUBQ 05/31/19 21:00 07/15/19 20:59 06/03/19 08:41 Hydralazine HCl (Apresoline) 10 mg Q6HR ORAL 06/03/19 12:00 09/01/19 11:59 Hydralazine HCl (Apresoline) 25 mg Q6H PRN ORAL SBP>170 06/01/19 03:00 08/30/19 02:59 06/02/19 20:50 Insulin Aspart (NovoLOG) BEFORE MEALS AND HS SUBQ 05/31/19 16:30 08/29/19 16:29 06/03/19 06:14 Insulin Detemir (Levemir) 10 units DAILY SUBQ 06/01/19 09:00 08/30/19 08:59 06/03/19 09:06 Lorazepam (Ativan) 1 mg Q4H PRN ORAL For Anxiety 05/31/19 13:30 06/07/19 13:29 Losartan Potassium (Cozaar) 100 mg DAILY ORAL 06/01/19 09:00 07/01/19 08:59 06/02/19 08:14 Multivitamins Therapeutic (Therapeutic Multivitamin) 1 ea DAILY ORAL 06/01/19 09:00 07/01/19 08:59 06/03/19 08:38 Nitroglycerin (Ntg) 0.4 mg Q5M PRN SL Prn Chest Pain 05/31/19 13:30 06/30/19 13:29 Pantoprazole (Protonix) 40 mg BID ORAL 06/02/19 18:00 07/01/19 08:59 06/03/19 08:37 Pravastatin Sodium (Pravachol) 80 mg BEDTIME ORAL 05/31/19 21:00 06/30/19 20:59 06/02/19 20:30 Trazodone HCl (Desyrel) 50 mg BEDTIME ORAL 05/31/19 21:00 06/30/19 20:59 06/02/19 20:31 Laboratory Tests 06/03/19 06:30: White Blood Count 6.3, Red Blood Count 3.01L, Hemoglobin 9.3L, Hematocrit 27.9L , Mean Corpuscular Volume 93, Mean Corpuscular Hemoglobin 30.8, Mean Corpuscular Hemoglobin Concent 33.2, Red Cell Distribution Width 16.6H, Platelet Count 159, Mean Platelet Volume 6.0L, Neutrophils (%) (Auto) 74.1, Lymphocytes (%) (Auto) 13.0L, Monocytes (%) (Auto) 7.9, Eosinophils (%) (Auto) 3.6H, Basophils (%) (Auto) 1.4, Sodium Level 141, Potassium Level 4.5, Chloride Level 99, Carbon Dioxide Level 27, Anion Gap 15, Blood Urea Nitrogen 83H, Creatinine 9.4H, Estimat Glomerular Filtration Rate 7.2, Glucose Level 191H, Hemoglobin A1c 6.6H, Lactic Acid Level 0.80, Uric Acid 5.4, Calcium Level 9.7, Phosphorus Level 5.4H, Magnesium Level 2.5H, Iron Level 118, Total Iron Binding Capacity 111L, Percent Iron Saturation 106H, Unsaturated Iron Binding -7L, Ferritin > 2000H, Total Bilirubin 0.5, Gamma Glutamyl Transpeptidase 47, Aspartate Amino Transf (AST/SGOT) 60H, Alanine Aminotransferase (ALT/SGPT) 135H , Alkaline Phosphatase 125H, C-Reactive Protein, Quantitative 20.8H, Pro-B-Type Natriuretic Peptide > 32430A, Total Protein 8.0, Albumin 3.0L, Globulin 5.0, Albumin/Globulin Ratio 0.6L, Triglycerides Level 99, Cholesterol Level 171, LDL Cholesterol 57, HDL Cholesterol 56, Cholesterol/HDL Ratio 3.1L, Vitamin B12 Level 1299H, Folate 58.6 Height (Feet): 5 Height (Inches): 8.00 Weight (Pounds): 175 Tone Celaya MD Jun 03, 2019 11:46
[2019-06-03] MEDS: HydrALAZINE 10mg Tab ORAL SCH ×3 (12:00→23:28)
--- NOTE | 2019-06-03 12:18 | NUR ---
NURSE NOTES: PT provided lunch, still getting dialysis, BP greatly improved, no S/S of respiratory distress, will continue to monitor.
--- NOTE | 2019-06-03 12:49 | NUR ---
NURSE NOTES: PT has US scheduled, will be done tomorrow, told by US tech to keep PT NPO after midnight till morning. Will endorse plan of care to next shift.
[2019-06-03] MEDS: cefTRIAXone 1 GM in D5W 55 ML IVPB SCH (13:27)
--- NOTE | 2019-06-03 13:49 | NUR ---
NURSE NOTES: PT placed on 3L-NC, no S/S of respiratory distress noted, COURTNEY-AV shunt no signs of bleeding noted, L-AC 20g removed not patent pressure dressing applied/taped. Will continue to monitor PT.
--- NOTE | 2019-06-03 14:53 | Surgery Progress Note ---
Surgery Progress Note Subjective Additional Comments leukocytosis resolved lft's improving Objective Last 24 Hour Vital Signs Date Time Temp Pulse Resp B/P (MAP) Pulse Ox O2 Delivery O2 Flow Rate FiO2 06/03/19 13:30 3.0 06/03/19 13:30 Nasal Cannula 3.0 06/03/19 12:00 97.5 97 16 126/75 (92) 100 06/03/19 12:00 14.0 06/03/19 12:00 127/91 06/03/19 12:00 92 06/03/19 12:00 Venturi Mask 14.0 06/03/19 10:30 84 13 139/81 (100) 100 06/03/19 10:00 89 13 183/102 (129) 100 06/03/19 09:00 204/114 06/03/19 09:00 92 204/114 06/03/19 08:00 Venturi Mask 14.0 06/03/19 08:00 97.4 92 19 204/114 (144) 98 06/03/19 08:00 14.0 06/03/19 08:00 81 06/03/19 04:00 Venturi Mask 14.0 06/03/19 04:00 97.4 85 19 160/90 (113) 100 06/03/19 04:00 14.0 06/03/19 04:00 78 06/03/19 00:00 97.3 75 22 145/90 (108) 98 06/03/19 00:00 Venturi Mask 14.0 06/03/19 00:00 77 06/03/19 00:00 14.0 06/02/19 21:01 97.2 06/02/19 20:50 177/110 06/02/19 20:00 97.7 80 22 173/100 (124) 98 06/02/19 20:00 14.0 06/02/19 20:00 87 06/02/19 20:00 Venturi Mask 14.0 06/02/19 16:00 Venturi Mask 14.0 06/02/19 16:00 93 06/02/19 16:00 14.0 06/02/19 16:00 97.2 80 24 151/69 (96) 98 I&O Intake and Output 06/02/19 06/03/19 19:00 07:00 Intake Total 555 ml 100 ml Balance 555 ml 100 ml Intake Oral 500 ml 100 ml IV Total 55 ml # Bowel Movements 6 Dressing: dry Wound: clean Cardiovascular: RSR Respiratory: clear Abdomen: non-tender, present bowel sounds Extremities: no tenderness, no cyanosis, other Laboratory Tests Test 06/03/19 06:30 White Blood Count 6.3 K/UL (4.8-10.8) Red Blood Count 3.01 M/UL (4.70-6.10) L Hemoglobin 9.3 G/DL (14.2-18.0) L Hematocrit 27.9 % (42.0-52.0) L Mean Corpuscular Volume 93 FL (80-99) Mean Corpuscular Hemoglobin 30.8 PG (27.0-31.0) Mean Corpuscular Hemoglobin Concent 33.2 G/DL (32.0-36.0) Red Cell Distribution Width 16.6 % (11.6-14.8) H Platelet Count 159 K/UL (150-450) Mean Platelet Volume 6.0 FL (6.5-10.1) L Neutrophils (%) (Auto) 74.1 % (45.0-75.0) Lymphocytes (%) (Auto) 13.0 % (20.0-45.0) L Monocytes (%) (Auto) 7.9 % (1.0-10.0) Eosinophils (%) (Auto) 3.6 % (0.0-3.0) H Basophils (%) (Auto) 1.4 % (0.0-2.0) Sodium Level 141 MMOL/L (136-145) Potassium Level 4.5 MMOL/L (3.5-5.1) Chloride Level 99 MMOL/L (98-107) Carbon Dioxide Level 27 MMOL/L (21-32) Anion Gap 15 mmol/L (5-15) Blood Urea Nitrogen 83 mg/dL (7-18) H Creatinine 9.4 MG/DL (0.55-1.30) H Estimat Glomerular Filtration Rate 7.2 mL/min (>60) Glucose Level 191 MG/DL (74-106) H Hemoglobin A1c 6.6 % (4.3-6.0) H Lactic Acid Level 0.80 mmol/L (0.4-2.0) Uric Acid 5.4 MG/DL (2.6-7.2) Calcium Level 9.7 MG/DL (8.5-10.1) Phosphorus Level 5.4 MG/DL (2.5-4.9) H Magnesium Level 2.5 MG/DL (1.8-2.4) H Iron Level 118 ug/dL (50-175) Total Iron Binding Capacity 111 ug/dL (250-450) L Percent Iron Saturation 106 % (15-50) H Unsaturated Iron Binding -7 ug/dL (112-346) L Ferritin > 2000 NG/ML (8-388) H Total Bilirubin 0.5 MG/DL (0.2-1.0) Gamma Glutamyl Transpeptidase 47 U/L (5-85) Aspartate Amino Transf (AST/SGOT) 60 U/L (15-37) H Alanine Aminotransferase (ALT/SGPT) 135 U/L (12-78) H Alkaline Phosphatase 125 U/L (46-116) H C-Reactive Protein, Quantitative 20.8 mg/dL (0.00-0.90) H Pro-B-Type Natriuretic Peptide > 85158 pg/mL (0-125) H Total Protein 8.0 G/DL (6.4-8.2) Albumin 3.0 G/DL (3.4-5.0) L Globulin 5.0 g/dL Albumin/Globulin Ratio 0.6 (1.0-2.7) L Triglycerides Level 99 MG/DL (30-150) Cholesterol Level 171 MG/DL (< 200) LDL Cholesterol 57 mg/dL (<100) HDL Cholesterol 56 MG/DL (40-60) Cholesterol/HDL Ratio 3.1 (3.3-4.4) L Vitamin B12 Level 1299 PG/ML (193-986) H Folate 58.6 NG/ML (8.6-58.9) Plan Problems: (1) Osteomyelitis of left foot Assessment & Plan: Patient with history of left foot amputation currently identified to have a 1 cm dehiscence at the apex of the amputation flap. It is dry with a scab does not seem to have any underlying fluctuance fluid collection or infection. It is a skin dehiscence but will require local wound care until improved. Furthermore sutures still in place and were removed at the bedside by myself. Once sutures removed the remaining the flap was evaluated and identified to be intact Well. No signs of active infection throughout the stump. Viable stump identified. No nausea vomiting. Labs noted. We will continue with local wound care. Full respiratory and isolation precautions were followed upon entering the room given patient's admission condition. PPD worn during examination and procedure (2) Ulcer of amputation stump of foot Assessment & Plan: Wash daily with normal saline, apply Thera honey followed by OPTi foam dressing daily and as needed saturation Bentley Wharton Jun 03, 2019 14:53
--- NOTE | 2019-06-03 17:33 | NUR ---
NURSE NOTES: COURTNEY-AV shunt remains intact, no S/S of bleeding from shunt, linens changed, provided dinner but PT advised he got the same thing for lunch. Called dietary to request new dinner if possible. Will continue to monitor PT.
--- NOTE | 2019-06-03 17:45 | Consultation ---
DATE OF CONSULTATION: 06/03/2019 CONSULTING PHYSICIAN: Adithya Valentine M.D. CHIEF COMPLAINT: Abnormal liver function tests. HISTORY OF PRESENT ILLNESS: This is a 53-year-old male with multiple medical problems including end-stage renal disease, on hemodialysis. Apparently, he has also other medical problems, which I will dictate in a second, was mainly admitted to the hospital for shortness of breath and having difficulty with breathing. According to him, he had a roommate that had fever, so on admission he had fever, shortness of breath, and cough, so he was isolated for possible COVID-19. His liver enzymes were elevated, so GI consult requested for evaluation. PAST MEDICAL HISTORY: 1. History of end-stage renal disease, on hemodialysis. 2. Osteodystrophy. 3. Hypertension. 4. Diabetes type 2. 5. Peripheral vascular disease. 6. History of gangrene of the left leg requiring amputation. PAST SURGICAL HISTORY: 1. AV fistula placement for hemodialysis. 2. Left BKA. SOCIAL HISTORY: The patient denies any tobacco, alcohol, or drug abuse. MEDICATIONS: Please see medication reconciliation list. ALLERGIES: No known allergies. PHYSICAL EXAMINATION: VITAL SIGNS: Temperature is 97.4, pulse 89, respirations 13, and blood pressure 183/102. HEENT: Normocephalic and atraumatic. Mild pale conjunctivae. NECK: Supple. No evidence of obvious lymphadenopathy. CARDIOVASCULAR: Regular rate and rhythm. Plus S1 and S2. LUNGS: Decreased breath sounds bilaterally based on the supine exam. ABDOMEN: Soft, nontender. No rebound. No guarding. No peritoneal sign. EXTREMITIES: No cyanosis, no clubbing. The patient has evidence of left BKA. LABORATORY DATA: White count 6.3, hemoglobin 9.3, hematocrit 27, and platelets of 159,000. Chem-7, sodium is 141, potassium 4.5, BUN 83, and creatinine 9.4. AST is 60, ALT 135, and alkaline phosphatase 125. Bilirubin is 0.5. The patient had mildly elevated troponin of 0.155. ASSESSMENT AND PLAN: This is a 53-year-old male with renal failure on hemodialysis, admitted to the hospital with shortness of breath, isolation for possible COVID-19, now with abnormal liver function tests and anemia. Anemia, this is most probably secondary to renal disease. Plan to send the stool for OB, monitor hemoglobin and hematocrit, transfuse as needed to keep hemoglobin above 7. At this time, given the patient is in isolation, we are going to hold off doing any GI procedures. In terms of abnormal liver function tests that can be related to COVID-19 if he has one, also other possibilities would be medication-related, because it is mainly transaminitis. Plan to order abdominal ultrasound, hepatitis panel, repeat liver function tests for tomorrow. We will monitor closely and make further recommendation as we go along. I want to thank Dr. Bueno for this kind referral. Adithya Valentine M.D. DR: AKASH JOB#: [id number] CC:
--- NOTE | 2019-06-03 19:24 | NUR ---
HAND-OFF: Report and PT given to MARLENY Pepper. Endorsed PT to be NPO after midnight for US, and PT is schedule for 2D echo tomorrow.
--- NOTE | 2019-06-03 19:30 | NUR ---
NURSE NOTES: Received report from MARLENY Pearson. Patient is awake,alert able to verbalize needs to staff, watching TV. On 3L oxygen via N/C O2 sat 100% on the monitor. ST on the monitor HR 103 . No s/s of acute distress noted. IV sites intact no s/s of infiltration. Right upper arm AV shunt noted with + bruit and thrill, dressing intact. Contact, droplet and airborne precaution R/O COVID 19 maintained and observed. bed alarm on. bed locked and in low position. Encouraged patient to verbalized needs, fears and feelings to staff. Temp 98.7 Axillary. Instructed patient to use call light for assistance. Call light within easy reach. will continue plan of care.
[2019-06-03] MEDS: TraZODone 50mg tab ORAL SCH (20:25)
[2019-06-03] MEDS: HYDROcodone/Acetamin 5/325 tab ORAL PRN (20:25)
--- NOTE | 2019-06-03 22:30 | Consultation ---
DATE OF CONSULTATION: 06/03/2019 CARDIOLOGY CONSULTATION CONSULTING PHYSICIAN: Lizandro Falcon M.D. REFERRING PHYSICIANS: Dr. Cesar and Ramu Bueno M.D. REASON FOR CONSULTATION: Management of acute heart failure. HISTORY OF PRESENT ILLNESS: The patient is a very unfortunate 53-year-old gentleman with past medical history significant for end-stage renal disease, diabetes mellitus, hypertension, depression and diabetic neuropathy, who presented to the hospital for evaluation of shortness of breath, as he missed his dialysis for about a day. The patient also had exposure to a patient who had a roommate who was suspicious for febrile syndrome. The patient was complaining of being volume overloaded, but he did not have any subjective complaints of fever and chills. At the time of arrival to the emergency department, the patient denied any chest pain. His blood pressure was 180/100 mmHg and heart rate was 120. A 12-lead electrocardiogram in the emergency department was significant for sinus tachycardia at a rate of 122 with no acute ischemic features. Chest x-ray in the emergency department was significant for severe bilateral airspace disease with central distribution, which was suspicious for pulmonary edema/congestive heart failure. The patient was admitted to telemetry for further evaluation and management of shortness of breath. Cardiology consultation was made at the request of Dr. Cesar/Myles for cardiac evaluation of shortness of breath. PAST MEDICAL HISTORY: End-stage renal disease, hypertension, diabetes mellitus, diabetic neuropathy, and depression. History of peripheral vascular disease, history of gangrene of left leg. PAST SURGICAL HISTORY: Left below-knee amputation and right arm AV fistula. SOCIAL HISTORY: Denied tobacco, alcohol, or illicit drug use. MEDICATIONS: Amlodipine 10 mg p.o. daily, ascorbic acid 500 mg daily, aspirin 81 mg p.o. daily, cholecalciferol 1000 units p.o. daily, clonidine 0.1 mg q.6 h. p.r.n. systolic blood pressure above 160, Plavix 75 mg p.o. daily, folic acid 1 mg p.o. daily, Nephro-Brian one tablet daily, [place] 5-325 mg every hours p.r.n. pain, Lantus insulin 10 units subcutaneous at bedtime, Humalog insulin 6 units subcutaneous three times a day before each meal, losartan 50 mg p.o. daily, Protonix 40 mg p.o. daily, pravastatin 20 mg p.o. nightly, trazodone 150 mg nightly, and zinc sulfate 220 mg p.o. daily. REVIEW OF SYSTEMS: HEENT: No headache, diplopia, or blurred vision. CONSTITUTIONAL: Denies any fever, chills, or night sweats. CARDIOVASCULAR: No chest pain. Positive for shortness of breath. No PND or orthopnea. Positive for lower extremity edema. No syncope. PULMONARY: Positive for shortness of breath, but no hemoptysis or wheezing. GASTROINTESTINAL: Denies any nausea, vomiting, diarrhea, constipation, abdominal pain, or GI bleed. GENITOURINARY: Denies any hematuria, dysuria, or incontinence. NEUROLOGICAL: Denies any motor dysfunction, sensory deficit, or altered speech. ALLERGIES: No known drug allergies. PHYSICAL EXAMINATION: VITAL SIGNS: Blood pressure was 180/100 mmHg, pulse of 120, respirations 22, and temperature 97.7 degrees Fahrenheit. O2 saturation 94% on non-rebreather mask. GENERAL: The patient is a very unfortunate 53-year-old gentleman, who is receiving hemodialysis at this time, in no apparent respiratory distress. HEENT: Atraumatic and normocephalic. Anicteric. Pupils are equal, round, and reactive to light and accommodation. Extraocular muscles intact. NECK: JVP is elevated about 12 to 15 cm. No carotid bruit. Carotid upstroke is 2+ bilaterally. CARDIOVASCULAR: Normal S1 and S2. Regular rate and rhythm. Tachycardic. No murmurs, gallops, or rubs. PMI is at fourth intercostal space in the midclavicular line. LUNGS: On venturi-mask currently. Saturation 100%. Bibasilar crackles. ABDOMEN: Soft, nontender, and nondistended. No hepatosplenomegaly. Positive bowel sounds. EXTREMITIES: There is 1 to 2+ bilateral lower extremity edema. No evidence of cyanosis or clubbing. LABORATORY AND DIAGNOSTIC DATA: Review of imaging studies done in the past. A 2D echocardiography done in November 2017 had shown normal LV systolic function with LVEF approximately 70%. There was right ventricular systolic pressure at 20 mmHg and grade 1 LV diastolic dysfunction and mitral annular calcification, mild aortic root dilatation measured at 43 mm, and mild left ventricular hypertrophy. Laboratory findings - WBC was 13.9, hemoglobin 8.6, hematocrit of 26.4, and platelet count 182,000 with left shift 87%. Sodium is 143, potassium 4.6, chloride 100, bicarbonate 29, BUN of 66, and creatinine 8.0. Glucose is 211. Calcium is 9.9. ProBNP was over 35,000. Triglycerides 99, total cholesterol 171, HDL of 56, and LDL of 57. Blood gas was consistent with hypoxic respiratory failure. ASSESSMENT AND PLAN: The patient is a very unfortunate 53-year-old male, who is seen in Cardiology consultation. 1. Most likely acute on chronic heart failure, preserved ejection fraction. This is most likely due to combination of end-stage renal disease and hypertensive crisis in a patient with diabetes mellitus with most likely diabetic cardiomyopathy. The patient requires to have aggressive dialysis, slight ultrafiltration as recommended by credit risk specialist for decreasing preload. For afterload reduction, we would like to continue and optimize angiotensin receptor blockers and calcium channel blockers. We would like to obtain another 2D echocardiography for reassessment of LV systolic as well as diastolic function, which can provide us hemodynamic data as well. 2. Paroxysmal atrial tachycardia, will consider carvedilol. 3. Diabetes mellitus. Recommend aspirin and statin for prevention of vasculopathy. 4. Hypertensive crisis. We will optimize afterload reducers such as hydralazine and calcium channel blockers. We may add beta-fitz if the blood pressure is not controlled. We will like to consider carvedilol. 5. End-stage renal disease. Continue with the recommendation by the credit risk specialist. I would like to thank Dr. Bueno and Dr. Cesar for involving me in the care of this most pleasant patient. Lizandro Falcon M.D. DR: ZI JOB#: [id number] CC: REBECCA
[2019-06-04] VITALS: BP 152/92
--- NOTE | 2019-06-04 | NUR ---
NURSE NOTES: NPO after 12mn for Ultrasound of Abdomen in am. patient BP 152/92 patient able to swallow Meds without difficulty, no coughing. no s/s of hypo/hyperglycemia. no s/s of acute distress. patient able to repositioned self.Call light within easy reach.
[2019-06-04 04:00] VITALS: BP 126/72
[2019-06-04 04:35] LABS: EOSINOPHILS % (AUTO) 3.8 % (0.0-3.0); HEMATOCRIT 29.3 % (42.0-52.0); HEMOGLOBIN 9.7 G/DL (14.2-18.0); LYMPHOCYTES % (AUTO) 18.5 % (20.0-45.0); MEAN CORPUSCULAR VOLUME 93 FL (80-99); MONOCYTES % (AUTO) 11.4 % (1.0-10.0); NEUTROPHILS % (AUTO) 65.4 % (45.0-75.0); PLATELET COUNT 195 K/UL (150-450); RED BLOOD COUNT 3.15 M/UL (4.70-6.10); RED CELL DISTRIBUTION WIDTH 16.5 % (11.6-14.8); WHITE BLOOD COUNT 6.7 K/UL (4.8-10.8)
[2019-06-04 05:02] LABS: ALANINE AMINOTRANSFERASE 180 U/L (12-78); ALBUMIN 2.9 G/DL (3.4-5.0); ALBUMIN/GLOBULIN RATIO 0.5 (1.0-2.7); ALKALINE PHOSPHATASE 158 U/L (46-116); ANION GAP 13 mmol/L (5-15); ASPARTATE AMINO TRANSFERASE 85 U/L (15-37); BILIRUBIN,TOTAL 0.4 MG/DL (0.2-1.0); BLOOD UREA NITROGEN 57 mg/dL (7-18); CALCIUM 9.2 MG/DL (8.5-10.1); CARBON DIOXIDE 29 MMOL/L (21-32); CHLORIDE 100 MMOL/L (98-107); CREATININE 7.4 MG/DL (0.55-1.30); PHOSPHORUS 6.1 MG/DL (2.5-4.9); POTASSIUM 4.4 MMOL/L (3.5-5.1); SODIUM 142 MMOL/L (136-145)
--- NOTE | 2019-06-04 05:25 | NUR ---
NURSE NOTES: patient with x1 episode of dark stool, collected occult blood stool. Kept clean and dry. patient blood glucose 277mg/dl. Denies any pain or discomfort. skin warm and dry to touch. no fever. call light within easy reach. will continue plan of care.
[2019-06-04] MEDS: NovoLOG Insulin Flexpen SUBQ SCH ×4 (05:37→20:30)
[2019-06-04] MEDS: HYDROcodone/Acetamin 5/325 tab ORAL PRN (05:38)
[2019-06-04] MEDS: HydrALAZINE 10mg Tab ORAL SCH ×4 (05:39→23:11)
--- NOTE | 2019-06-04 07:11 | NUR ---
HAND-OFF: Report given to Matthew FARMER.
--- NOTE | 2019-06-04 07:20 | NUR ---
NURSE NOTES: Received report from MARLENY Pepper. The patient is resting on the bed without acute distress or shortness of breath. The patient's bed in the lowest position, call light in reach, and fall and aspiration precaution reinforced. IV site on L wrist 22G intact and patent. R upper arm AV shunt intact. The patient has history of HD on 05/31 8L and 06/02 4L and no scheduled HD today. The patient is having loose stool and will hold stool softner. The patient is kept in NPO for abdominal ultrasound today. Will continue plan of care.
--- NOTE | 2019-06-04 07:51 | General Progress Note ---
Assessment/Plan Assessment/Plan: 1. History of end-stage renal disease, on hemodialysis. 2. Osteodystrophy. 3. Hypertension. 4. Diabetes type 2. 5. Peripheral vascular disease. 6. History of gangrene of the left leg requiring amputation 7. Anemia 8. Elevated LFTS anemia work up pending stable H&H no obvious GIB abd us pending hepatitis panel pending fu chest CT fu COVED 19 repeat labs in am Subjective ROS Limited/Unobtainable: No Allergies: Coded Allergies: NO KNOWN ALLERGIES (Verified Allergy, Unknown, 12/04/17) Objective Last 24 Hour Vital Signs Date Time Temp Pulse Resp B/P (MAP) Pulse Ox O2 Delivery O2 Flow Rate FiO2 06/04/19 06:08 98.0 06/04/19 05:39 134/88 06/04/19 04:00 98.0 95 18 126/72 (90) 100 06/04/19 04:00 Nasal Cannula 3.0 06/04/19 04:00 3.0 06/04/19 04:00 93 06/04/19 00:00 Nasal Cannula 3.0 06/04/19 00:00 3.0 06/04/19 00:00 98.0 100 18 152/92 (112) 100 06/04/19 00:00 90 06/03/19 23:28 152/92 06/03/19 22:14 99 Nasal Cannula 3.0 32 06/03/19 22:12 104 20 99 Nasal Cannula 3.0 32 06/03/19 20:00 98.7 104 16 137/88 (104) 100 06/03/19 20:00 104 06/03/19 20:00 3.0 06/03/19 20:00 Nasal Cannula 3.0 06/03/19 17:10 127/91 06/03/19 16:00 99.2 105 16 141/79 (99) 100 06/03/19 16:00 103 06/03/19 16:00 Nasal Cannula 3.0 06/03/19 13:30 3.0 06/03/19 13:30 Nasal Cannula 3.0 06/03/19 12:00 97.5 97 16 126/75 (92) 100 06/03/19 12:00 14.0 06/03/19 12:00 127/91 06/03/19 12:00 92 06/03/19 12:00 Venturi Mask 14.0 06/03/19 10:30 84 13 139/81 (100) 100 06/03/19 10:00 89 13 183/102 (129) 100 06/03/19 09:00 204/114 06/03/19 09:00 92 204/114 06/03/19 08:00 Venturi Mask 14.0 06/03/19 08:00 97.4 92 19 204/114 (144) 98 06/03/19 08:00 14.0 06/03/19 08:00 81 Intake and Output 06/03/19 06/04/19 19:00 07:00 Intake Total 415 ml Output Total 4000 ml Balance -3585 ml Intake Oral 360 ml IV Total 55 ml Output Hemodialysis UF 4000 ml # Bowel Movements 3 Laboratory Tests 06/04/19 03:50: White Blood Count 6.7, Red Blood Count 3.15L, Hemoglobin 9.7L, Hematocrit 29.3L , Mean Corpuscular Volume 93, Mean Corpuscular Hemoglobin 30.7, Mean Corpuscular Hemoglobin Concent 33.0, Red Cell Distribution Width 16.5H, Platelet Count 195, Mean Platelet Volume 6.2L, Neutrophils (%) (Auto) 65.4, Lymphocytes (%) (Auto) 18.5L, Monocytes (%) (Auto) 11.4H, Eosinophils (%) (Auto ) 3.8H, Basophils (%) (Auto) 1.0, Sodium Level 142, Potassium Level 4.4, Chloride Level 100, Carbon Dioxide Level 29, Anion Gap 13, Blood Urea Nitrogen 57H, Creatinine 7.4H, Estimat Glomerular Filtration Rate 9.5, Glucose Level 272H , Calcium Level 9.2, Phosphorus Level 6.1H, Magnesium Level 2.5H, Total Bilirubin 0.4, Aspartate Amino Transf (AST/SGOT) 85H, Alanine Aminotransferase ( ALT/SGPT) 180H, Alkaline Phosphatase 158H, C-Reactive Protein, Quantitative 11.9H, Total Protein 8.2, Albumin 2.9L, Globulin 5.3, Albumin/Globulin Ratio 0.5L, Hepatitis A IgM Antibody [Pending], Hepatitis B Surface Antigen [Pending] , Hepatitis B Core IgM Antibody [Pending], Hepatitis C Antibody [Pending] 06/04/19 04:00: Stool Occult Blood [Pending] Height (Feet): 5 Height (Inches): 8.00 Weight (Pounds): 175 General Appearance: no apparent distress EENT: normal ENT inspection Neck: supple Cardiovascular: normal rate Respiratory/Chest: decreased breath sounds Abdomen: normal bowel sounds, non tender, soft Extremities: non-tender Adithya Valentine MD Jun 04, 2019 07:51
[2019-06-04 08:00] VITALS: BP 150/86
[2019-06-04] MEDS: Docusate 100mg cap ORAL SCH (08:25)
[2019-06-04] MEDS: Heparin 5000 units/ml inj SUBQ SCH ×2 (08:26→20:30)
[2019-06-04] MEDS: Losartan 50mg tab ORAL SCH (08:55)
[2019-06-04] MEDS: Aspirin EC 81mg tab ORAL SCH (08:55)
[2019-06-04] MEDS: Multivitamin w/Minerals tab ORAL SCH (08:57)
[2019-06-04] MEDS: Levemir Flexpen SUBQ SCH (09:22)
--- NOTE | 2019-06-04 09:30 | NUR ---
NURSE NOTES: The patient is stable without acute distress or shortness of breath. The patient is kept in NPO for abdomen ultrasound. 1/2 dose of Levemir given as the patient is NPO for abdominal ultrasound. Will continue plan of care.
--- NOTE | 2019-06-04 09:37 | NUR ---
RD ASSESSMENT & RECOMMENDATIONS SEE CARE ACTIVITY FOR COMPLETE ASSESSMENT DAILY ESTIMATED NEEDS: Needs based on ESRD on HD 69.5kg 25-35 kcals/kg 4701-4541 total kcals 1.2-1.8 g protein/kg 83-125 g total protein Fluid per MD, on HD NUTRITION DIAGNOSIS: * Increased kcal and protein needs R/T renal dysfunction as evidenced by pt w/ ESRD on HD. CURRENT DIET:Cardiac Renal PO DIET RECOMMENDATIONS: RENAL / CCHO MED DIET ADDITIONAL RECOMMENDATIONS: 1) RE-calibrate bed scale as able for accurate CBW 2) Monitor BGs closely for hyperglycemia as well as hypoglycemia 3) Monitor lytes- phos elevated 4) Rec phos binders w/ meals (phos elevated) 5) Wound healing: add Nephrovite x 1 + SANAZ BID -> DC MVI .
--- NOTE | 2019-06-04 10:46 | Infectious Diseases Prog Note ---
Assessment/Plan Assessment/Plan antibiotics : ceftriaxone A 1. pneumonia improving 2. leucocytosis resolved 3. CVA 4. diabetes mellitus 5. hypertension 6. renal failure on dialysis P 1. continue ceftriaxone 3 more days 2. COVID 19 test pending 3. continue isolation Subjective Constitutional: Denies: fever, chills Respiratory: Denies: shortness of breath, dry cough Gastrointestinal/Abdominal: Denies: nausea, vomiting, diarrhea Musculoskeletal: Denies: pain Allergies: Coded Allergies: NO KNOWN ALLERGIES (Verified Allergy, Unknown, 12/04/17) Objective Vital Signs Last 24 Hour Vital Signs Date Time Temp Pulse Resp B/P (MAP) Pulse Ox O2 Delivery O2 Flow Rate FiO2 06/04/19 08:56 92 145/88 06/04/19 08:55 145/88 06/04/19 08:00 3.0 06/04/19 08:00 98.2 90 18 150/86 (107) 100 06/04/19 08:00 92 06/04/19 07:00 100 Nasal Cannula 3.0 32 06/04/19 07:00 90 20 100 Nasal Cannula 3.0 32 06/04/19 06:08 98.0 06/04/19 05:39 134/88 06/04/19 04:00 98.0 95 18 126/72 (90) 100 06/04/19 04:00 Nasal Cannula 3.0 06/04/19 04:00 3.0 06/04/19 04:00 93 06/04/19 00:00 Nasal Cannula 3.0 06/04/19 00:00 3.0 06/04/19 00:00 98.0 100 18 152/92 (112) 100 06/04/19 00:00 90 06/03/19 23:28 152/92 06/03/19 22:14 99 Nasal Cannula 3.0 32 06/03/19 22:12 104 20 99 Nasal Cannula 3.0 32 06/03/19 20:00 98.7 104 16 137/88 (104) 100 06/03/19 20:00 104 06/03/19 20:00 3.0 06/03/19 20:00 Nasal Cannula 3.0 06/03/19 17:10 127/91 06/03/19 16:00 99.2 105 16 141/79 (99) 100 06/03/19 16:00 103 06/03/19 16:00 Nasal Cannula 3.0 06/03/19 13:30 3.0 06/03/19 13:30 Nasal Cannula 3.0 06/03/19 12:00 97.5 97 16 126/75 (92) 100 06/03/19 12:00 14.0 06/03/19 12:00 127/91 06/03/19 12:00 92 06/03/19 12:00 Venturi Mask 14.0 Height (Feet): 5 Height (Inches): 8.00 Weight (Pounds): 175 Respiratory/Chest: lungs clear Cardiovascular: normal rate, regular rhythm, no gallop/murmur Abdomen: soft, non tender Extremities: no edema Microbiology Date/Time Source Procedure Growth Status 06/01/19 14:00 Sputum Gram Stain - Final Complete 06/01/19 14:00 Sputum Sputum Culture - Final NORMAL UPPER RESPIRATORY DARREN PRESENT Complete Laboratory Tests Test 06/04/19 03:50 06/04/19 04:00 White Blood Count 6.7 K/UL (4.8-10.8) Red Blood Count 3.15 M/UL (4.70-6.10) L Hemoglobin 9.7 G/DL (14.2-18.0) L Hematocrit 29.3 % (42.0-52.0) L Mean Corpuscular Volume 93 FL (80-99) Mean Corpuscular Hemoglobin 30.7 PG (27.0-31.0) Mean Corpuscular Hemoglobin Concent 33.0 G/DL (32.0-36.0) Red Cell Distribution Width 16.5 % (11.6-14.8) H Platelet Count 195 K/UL (150-450) Mean Platelet Volume 6.2 FL (6.5-10.1) L Neutrophils (%) (Auto) 65.4 % (45.0-75.0) Lymphocytes (%) (Auto) 18.5 % (20.0-45.0) L Monocytes (%) (Auto) 11.4 % (1.0-10.0) H Eosinophils (%) (Auto) 3.8 % (0.0-3.0) H Basophils (%) (Auto) 1.0 % (0.0-2.0) Sodium Level 142 MMOL/L (136-145) Potassium Level 4.4 MMOL/L (3.5-5.1) Chloride Level 100 MMOL/L (98-107) Carbon Dioxide Level 29 MMOL/L (21-32) Anion Gap 13 mmol/L (5-15) Blood Urea Nitrogen 57 mg/dL (7-18) H Creatinine 7.4 MG/DL (0.55-1.30) H Estimat Glomerular Filtration Rate 9.5 mL/min (>60) Glucose Level 272 MG/DL (74-106) H Calcium Level 9.2 MG/DL (8.5-10.1) Phosphorus Level 6.1 MG/DL (2.5-4.9) H Magnesium Level 2.5 MG/DL (1.8-2.4) H Total Bilirubin 0.4 MG/DL (0.2-1.0) Aspartate Amino Transf (AST/SGOT) 85 U/L (15-37) H Alanine Aminotransferase (ALT/SGPT) 180 U/L (12-78) H Alkaline Phosphatase 158 U/L (46-116) H C-Reactive Protein, Quantitative 11.9 mg/dL (0.00-0.90) H Total Protein 8.2 G/DL (6.4-8.2) Albumin 2.9 G/DL (3.4-5.0) L Globulin 5.3 g/dL Albumin/Globulin Ratio 0.5 (1.0-2.7) L Hepatitis A IgM Antibody Pending Hepatitis B Surface Antigen Pending Hepatitis B Core IgM Antibody Pending Hepatitis C Antibody Pending Stool Occult Blood Pending Current Medications Medications (Trade) Dose Ordered Sig/Felix Route PRN Reason Start Time Stop Time Status Last Admin Dose Admin Acetaminophen (Tylenol) 650 mg Q4H PRN ORAL Mild Pain (Pain Scale 1-3) 05/31/19 13:30 06/30/19 13:29 Acetaminophen/ Hydrocodone Bitart ([place] 5/325) 1 tab Q4H PRN ORAL For Pain 05/31/19 13:30 06/07/19 13:29 06/04/19 05:38 Albuterol/ Ipratropium (Albuterol/ Ipratropium) 3 ml Q4H PRN HHN Shortness of Breath 05/31/19 13:30 06/05/19 13:29 05/31/19 22:34 Albuterol/ Ipratropium (Combivent Respimat) 2 puffs Q4H PRN INH Shortness of Breath 06/01/19 17:45 07/01/19 17:44 Amlodipine Besylate (Norvasc) 10 mg DAILY ORAL 06/01/19 09:00 07/01/19 08:59 06/04/19 08:56 Aspirin (Ecotrin) 81 mg DAILY ORAL 06/01/19 09:00 07/16/19 08:59 06/04/19 08:55 Ceftriaxone Sodium 1 gm/ Dextrose 55 ml @ 110 mls/hr Q24H IVPB 06/01/19 12:00 06/08/19 11:59 06/03/19 13:27 Clonidine HCl (Catapres Tab) 0.1 mg Q6H PRN ORAL SBP > 180 05/31/19 23:00 08/29/19 22:59 05/31/19 23:57 Clopidogrel Bisulfate (Plavix) 75 mg DAILY ORAL 06/01/19 09:00 07/01/19 08:59 06/04/19 08:56 Dextrose (Dextrose 50%) 25 ml Q30M PRN IV Hypoglycemia 05/31/19 13:30 08/29/19 13:29 Dextrose (Dextrose 50%) 50 ml Q30M PRN IV Hypoglycemia 05/31/19 13:30 08/29/19 13:29 Diphenhydramine HCl (Benadryl) 25 mg Q6H PRN ORAL Itching/Pruritis 05/31/19 13:30 06/30/19 13:29 Docusate Sodium (Colace) 100 mg TID ORAL 06/02/19 13:00 06/30/19 20:59 06/03/19 17:11 Heparin Sodium (Porcine) (Heparin 5000 units/ml) 5,000 units EVERY 12 HOURS SUBQ 05/31/19 21:00 07/15/19 20:59 06/03/19 20:26 Hydralazine HCl (Apresoline) 10 mg Q6HR ORAL 06/03/19 12:00 09/01/19 11:59 06/04/19 05:39 Hydralazine HCl (Apresoline) 25 mg Q6H PRN ORAL SBP>170 06/01/19 03:00 08/30/19 02:59 06/02/19 20:50 Insulin Aspart (NovoLOG) BEFORE MEALS AND HS SUBQ 05/31/19 16:30 08/29/19 16:29 06/04/19 05:37 Insulin Detemir (Levemir) 10 units DAILY SUBQ 06/01/19 09:00 08/30/19 08:59 06/04/19 09:22 Lorazepam (Ativan) 1 mg Q4H PRN ORAL For Anxiety 05/31/19 13:30 06/07/19 13:29 Losartan Potassium (Cozaar) 100 mg DAILY ORAL 06/01/19 09:00 07/01/19 08:59 06/04/19 08:55 Multivitamins Therapeutic (Therapeutic Multivitamin) 1 ea DAILY ORAL 06/01/19 09:00 07/01/19 08:59 06/04/19 08:57 Nitroglycerin (Ntg) 0.4 mg Q5M PRN SL Prn Chest Pain 05/31/19 13:30 06/30/19 13:29 Pantoprazole (Protonix) 40 mg BID ORAL 06/02/19 18:00 07/01/19 08:59 06/04/19 08:57 Pravastatin Sodium (Pravachol) 80 mg BEDTIME ORAL 05/31/19 21:00 06/30/19 20:59 06/03/19 20:25 Trazodone HCl (Desyrel) 50 mg BEDTIME ORAL 05/31/19 21:00 06/30/19 20:59 06/03/19 20:25 Maricarmen Gomes MD Jun 04, 2019 10:46
--- NOTE | 2019-06-04 11:00 | NUR ---
NURSE NOTES: Notified Dr. Gomes regarding loose stool x2 today. Dr. Gomes ordered to discontinue Docusate as the patient has loose stool for 2 days. Will carry out the order as soon as possible. The patient is stable without acute distress or shortness of breath. Will continue plan of care.
[2019-06-04 12:00] VITALS: BP 146/87
[2019-06-04] MEDS: cefTRIAXone 1 GM in D5W 55 ML IVPB SCH (12:18)
--- NOTE | 2019-06-04 12:25 | Diagnostic Imaging Report ---
Indication: Abdominal pain Technique: Grayscale and duplex Doppler imaging of the abdomen performed. Comparison: None Findings: The liver is unremarkable. Doppler interrogation of the main portal vein shows patency with hepatopedal, monophasic flow. There is no biliary ductal dilatation identified. Gallbladder is unremarkable. There demonstrated part of the pancreas, aorta and IVC show no definite abnormalities. Aorta is calcified. Right renal cortex may be slightly increased in echogenicity but this is not for certain. There are multiple cysts within the right kidney. The left kidney is not well seen. There is no hydronephrosis. IMPRESSION: Query medical renal disease. Correlate clinically. Multiple right renal cysts. Left kidney not seen well.
--- NOTE | 2019-06-04 12:33 | Cardiology Progress Note ---
Assessment/Plan Assessment/Plan 1. Acute on chronic HFpEF with mild pulmonary HTN, continue HD and afterload reduction. 2. Paroxysmal atrial tachycardia, resolved now SR at 80-90, will increase B- blockade intensity. 3. Diabetes mellitus. Consider aspirin and statin. 4. Hypertensive, stage II, will add carvedilol to the regimen. 5. End-stage renal disease. Subjective Subjective Sinus rhythm at rate of 86. Objective Last 24 Hour Vital Signs Date Time Temp Pulse Resp B/P (MAP) Pulse Ox O2 Delivery O2 Flow Rate FiO2 06/04/19 08:56 92 145/88 06/04/19 08:55 145/88 06/04/19 08:00 3.0 06/04/19 08:00 Nasal Cannula 3.0 06/04/19 08:00 98.2 90 18 150/86 (107) 100 06/04/19 08:00 92 06/04/19 07:00 100 Nasal Cannula 3.0 32 06/04/19 07:00 90 20 100 Nasal Cannula 3.0 32 06/04/19 06:08 98.0 06/04/19 05:39 134/88 06/04/19 04:00 98.0 95 18 126/72 (90) 100 06/04/19 04:00 Nasal Cannula 3.0 06/04/19 04:00 3.0 06/04/19 04:00 93 06/04/19 00:00 Nasal Cannula 3.0 06/04/19 00:00 3.0 06/04/19 00:00 98.0 100 18 152/92 (112) 100 06/04/19 00:00 90 06/03/19 23:28 152/92 06/03/19 22:14 99 Nasal Cannula 3.0 32 06/03/19 22:12 104 20 99 Nasal Cannula 3.0 32 06/03/19 20:00 98.7 104 16 137/88 (104) 100 06/03/19 20:00 104 06/03/19 20:00 3.0 06/03/19 20:00 Nasal Cannula 3.0 06/03/19 17:10 127/91 06/03/19 16:00 99.2 105 16 141/79 (99) 100 06/03/19 16:00 103 06/03/19 16:00 Nasal Cannula 3.0 06/03/19 13:30 3.0 06/03/19 13:30 Nasal Cannula 3.0 Intake and Output 06/03/19 06/04/19 19:00 07:00 Intake Total 415 ml Output Total 4000 ml Balance -3585 ml Intake Oral 360 ml IV Total 55 ml Output Hemodialysis UF 4000 ml # Bowel Movements 3 2D Echo: EF 55%, Pseudo-normal LV physiology, RVSP 37 mmHg, RAP 3, small Theresa. eff. Laboratory Tests Test 06/04/19 03:50 06/04/19 04:00 White Blood Count 6.7 K/UL (4.8-10.8) Red Blood Count 3.15 M/UL (4.70-6.10) L Hemoglobin 9.7 G/DL (14.2-18.0) L Hematocrit 29.3 % (42.0-52.0) L Mean Corpuscular Volume 93 FL (80-99) Mean Corpuscular Hemoglobin 30.7 PG (27.0-31.0) Mean Corpuscular Hemoglobin Concent 33.0 G/DL (32.0-36.0) Red Cell Distribution Width 16.5 % (11.6-14.8) H Platelet Count 195 K/UL (150-450) Mean Platelet Volume 6.2 FL (6.5-10.1) L Neutrophils (%) (Auto) 65.4 % (45.0-75.0) Lymphocytes (%) (Auto) 18.5 % (20.0-45.0) L Monocytes (%) (Auto) 11.4 % (1.0-10.0) H Eosinophils (%) (Auto) 3.8 % (0.0-3.0) H Basophils (%) (Auto) 1.0 % (0.0-2.0) Sodium Level 142 MMOL/L (136-145) Potassium Level 4.4 MMOL/L (3.5-5.1) Chloride Level 100 MMOL/L (98-107) Carbon Dioxide Level 29 MMOL/L (21-32) Anion Gap 13 mmol/L (5-15) Blood Urea Nitrogen 57 mg/dL (7-18) H Creatinine 7.4 MG/DL (0.55-1.30) H Estimat Glomerular Filtration Rate 9.5 mL/min (>60) Glucose Level 272 MG/DL (74-106) H Calcium Level 9.2 MG/DL (8.5-10.1) Phosphorus Level 6.1 MG/DL (2.5-4.9) H Magnesium Level 2.5 MG/DL (1.8-2.4) H Total Bilirubin 0.4 MG/DL (0.2-1.0) Aspartate Amino Transf (AST/SGOT) 85 U/L (15-37) H Alanine Aminotransferase (ALT/SGPT) 180 U/L (12-78) H Alkaline Phosphatase 158 U/L (46-116) H C-Reactive Protein, Quantitative 11.9 mg/dL (0.00-0.90) H Total Protein 8.2 G/DL (6.4-8.2) Albumin 2.9 G/DL (3.4-5.0) L Globulin 5.3 g/dL Albumin/Globulin Ratio 0.5 (1.0-2.7) L Hepatitis A IgM Antibody Pending Hepatitis B Surface Antigen Pending Hepatitis B Core IgM Antibody Pending Hepatitis C Antibody Pending Stool Occult Blood Pending Microbiology Date/Time Source Procedure Growth Status 06/01/19 14:00 Sputum Gram Stain - Final Complete 06/01/19 14:00 Sputum Sputum Culture - Final NORMAL UPPER RESPIRATORY DARREN PRESENT Complete Lizandro Falcon MD Jun 04, 2019 12:33
--- NOTE | 2019-06-04 13:00 | NUR ---
NURSE NOTES: The patient is stable without acute distress or shortness of breath. Tolerating 3L NC well, and oxygen saturation is 100%. Will continue plan of care.
--- NOTE | 2019-06-04 13:35 | NUR ---
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 98.5 HR 87 RR 18 B/P 146/87 3L NC O2 SAT @ 98% ABD US=Multiple right renal cysts. IS: CEFTRIAXONE IV HEPARIN SUBC ALB HHN STEP DOWN STATUS
--- NOTE | 2019-06-04 14:21 | Nephrology Progress Note ---
Assessment/Plan Assessment 1) ESRD 2) Fluid overload/CHF 3) Doubt Covid-19 infection, however not impossible 4) hyperphosphatemia Plan: HD tomorrow Awaiting Covid19 results Renvela 1600 mg po TID with meals Subjective Subjective He is off of Bipap, no c/p, less sob, had HD yesterday with 4 L removal Objective Objective Last 24 Hour Vital Signs Date Time Temp Pulse Resp B/P (MAP) Pulse Ox O2 Delivery O2 Flow Rate FiO2 06/04/19 12:42 96 146/87 06/04/19 12:18 146/87 06/04/19 12:00 3.0 06/04/19 12:00 83 06/04/19 12:00 98.5 87 18 146/87 (106) 100 06/04/19 12:00 Nasal Cannula 3.0 06/04/19 08:56 92 145/88 06/04/19 08:55 145/88 06/04/19 08:00 3.0 06/04/19 08:00 Nasal Cannula 3.0 06/04/19 08:00 98.2 90 18 150/86 (107) 100 06/04/19 08:00 92 06/04/19 07:00 100 Nasal Cannula 3.0 32 06/04/19 07:00 90 20 100 Nasal Cannula 3.0 32 06/04/19 06:08 98.0 06/04/19 05:39 134/88 06/04/19 04:00 98.0 95 18 126/72 (90) 100 06/04/19 04:00 Nasal Cannula 3.0 06/04/19 04:00 3.0 06/04/19 04:00 93 06/04/19 00:00 Nasal Cannula 3.0 06/04/19 00:00 3.0 06/04/19 00:00 98.0 100 18 152/92 (112) 100 06/04/19 00:00 90 06/03/19 23:28 152/92 06/03/19 22:14 99 Nasal Cannula 3.0 32 06/03/19 22:12 104 20 99 Nasal Cannula 3.0 32 06/03/19 20:00 98.7 104 16 137/88 (104) 100 06/03/19 20:00 104 06/03/19 20:00 3.0 06/03/19 20:00 Nasal Cannula 3.0 06/03/19 17:10 127/91 06/03/19 16:00 99.2 105 16 141/79 (99) 100 06/03/19 16:00 103 06/03/19 16:00 Nasal Cannula 3.0 Intake and Output 06/03/19 06/04/19 19:00 07:00 Intake Total 415 ml Output Total 4000 ml Balance -3585 ml Intake Oral 360 ml IV Total 55 ml Output Hemodialysis UF 4000 ml # Bowel Movements 3 Laboratory Tests 06/04/19 03:50: White Blood Count 6.7, Red Blood Count 3.15L, Hemoglobin 9.7L, Hematocrit 29.3L , Mean Corpuscular Volume 93, Mean Corpuscular Hemoglobin 30.7, Mean Corpuscular Hemoglobin Concent 33.0, Red Cell Distribution Width 16.5H, Platelet Count 195, Mean Platelet Volume 6.2L, Neutrophils (%) (Auto) 65.4, Lymphocytes (%) (Auto) 18.5L, Monocytes (%) (Auto) 11.4H, Eosinophils (%) (Auto ) 3.8H, Basophils (%) (Auto) 1.0, Sodium Level 142, Potassium Level 4.4, Chloride Level 100, Carbon Dioxide Level 29, Anion Gap 13, Blood Urea Nitrogen 57H, Creatinine 7.4H, Estimat Glomerular Filtration Rate 9.5, Glucose Level 272H , Calcium Level 9.2, Phosphorus Level 6.1H, Magnesium Level 2.5H, Total Bilirubin 0.4, Aspartate Amino Transf (AST/SGOT) 85H, Alanine Aminotransferase ( ALT/SGPT) 180H, Alkaline Phosphatase 158H, C-Reactive Protein, Quantitative 11.9H, Total Protein 8.2, Albumin 2.9L, Globulin 5.3, Albumin/Globulin Ratio 0.5L, Hepatitis A IgM Antibody [Pending], Hepatitis B Surface Antigen [Pending] , Hepatitis B Core IgM Antibody [Pending], Hepatitis C Antibody [Pending] 06/04/19 04:00: Stool Occult Blood Negative Height (Feet): 5 Height (Inches): 8.00 Weight (Pounds): 175 General Appearance: WD/WN, no apparent distress EENT: PERRL/EOMI Neck: non-tender, supple Cardiovascular: normal rate, regular rhythm, JVD - high Respiratory/Chest: crackles/rales Abdomen: normal bowel sounds, non tender, soft Extremities: other - L BKA 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
--- NOTE | 2019-06-04 14:30 | NUR ---
NURSE NOTES: Spoke with Andrew Coleman [facility] for dialysis schedule on 06/05/[address] Barlow. Will continue plan of care.
--- NOTE | 2019-06-04 15:20 | Surgery Progress Note ---
Surgery Progress Note Subjective Additional Comments no acute events comfortable stable Objective Last 24 Hour Vital Signs Date Time Temp Pulse Resp B/P (MAP) Pulse Ox O2 Delivery O2 Flow Rate FiO2 06/04/19 12:42 96 146/87 06/04/19 12:18 146/87 06/04/19 12:00 3.0 06/04/19 12:00 83 06/04/19 12:00 98.5 87 18 146/87 (106) 100 06/04/19 12:00 Nasal Cannula 3.0 06/04/19 08:56 92 145/88 06/04/19 08:55 145/88 06/04/19 08:00 3.0 06/04/19 08:00 Nasal Cannula 3.0 06/04/19 08:00 98.2 90 18 150/86 (107) 100 06/04/19 08:00 92 06/04/19 07:00 100 Nasal Cannula 3.0 32 06/04/19 07:00 90 20 100 Nasal Cannula 3.0 32 06/04/19 06:08 98.0 06/04/19 05:39 134/88 06/04/19 04:00 98.0 95 18 126/72 (90) 100 06/04/19 04:00 Nasal Cannula 3.0 06/04/19 04:00 3.0 06/04/19 04:00 93 06/04/19 00:00 Nasal Cannula 3.0 06/04/19 00:00 3.0 06/04/19 00:00 98.0 100 18 152/92 (112) 100 06/04/19 00:00 90 06/03/19 23:28 152/92 06/03/19 22:14 99 Nasal Cannula 3.0 32 06/03/19 22:12 104 20 99 Nasal Cannula 3.0 32 06/03/19 20:00 98.7 104 16 137/88 (104) 100 06/03/19 20:00 104 06/03/19 20:00 3.0 06/03/19 20:00 Nasal Cannula 3.0 06/03/19 17:10 127/91 06/03/19 16:00 99.2 105 16 141/79 (99) 100 06/03/19 16:00 103 06/03/19 16:00 Nasal Cannula 3.0 I&O Intake and Output 06/03/19 06/04/19 19:00 07:00 Intake Total 415 ml Output Total 4000 ml Balance -3585 ml Intake Oral 360 ml IV Total 55 ml Output Hemodialysis UF 4000 ml # Bowel Movements 3 Dressing: dry Wound: clean Cardiovascular: RSR Respiratory: clear Abdomen: soft, non-tender, present bowel sounds Extremities: no tenderness, no cyanosis Laboratory Tests Test 06/04/19 03:50 06/04/19 04:00 White Blood Count 6.7 K/UL (4.8-10.8) Red Blood Count 3.15 M/UL (4.70-6.10) L Hemoglobin 9.7 G/DL (14.2-18.0) L Hematocrit 29.3 % (42.0-52.0) L Mean Corpuscular Volume 93 FL (80-99) Mean Corpuscular Hemoglobin 30.7 PG (27.0-31.0) Mean Corpuscular Hemoglobin Concent 33.0 G/DL (32.0-36.0) Red Cell Distribution Width 16.5 % (11.6-14.8) H Platelet Count 195 K/UL (150-450) Mean Platelet Volume 6.2 FL (6.5-10.1) L Neutrophils (%) (Auto) 65.4 % (45.0-75.0) Lymphocytes (%) (Auto) 18.5 % (20.0-45.0) L Monocytes (%) (Auto) 11.4 % (1.0-10.0) H Eosinophils (%) (Auto) 3.8 % (0.0-3.0) H Basophils (%) (Auto) 1.0 % (0.0-2.0) Sodium Level 142 MMOL/L (136-145) Potassium Level 4.4 MMOL/L (3.5-5.1) Chloride Level 100 MMOL/L (98-107) Carbon Dioxide Level 29 MMOL/L (21-32) Anion Gap 13 mmol/L (5-15) Blood Urea Nitrogen 57 mg/dL (7-18) H Creatinine 7.4 MG/DL (0.55-1.30) H Estimat Glomerular Filtration Rate 9.5 mL/min (>60) Glucose Level 272 MG/DL (74-106) H Calcium Level 9.2 MG/DL (8.5-10.1) Phosphorus Level 6.1 MG/DL (2.5-4.9) H Magnesium Level 2.5 MG/DL (1.8-2.4) H Total Bilirubin 0.4 MG/DL (0.2-1.0) Aspartate Amino Transf (AST/SGOT) 85 U/L (15-37) H Alanine Aminotransferase (ALT/SGPT) 180 U/L (12-78) H Alkaline Phosphatase 158 U/L (46-116) H C-Reactive Protein, Quantitative 11.9 mg/dL (0.00-0.90) H Total Protein 8.2 G/DL (6.4-8.2) Albumin 2.9 G/DL (3.4-5.0) L Globulin 5.3 g/dL Albumin/Globulin Ratio 0.5 (1.0-2.7) L Hepatitis A IgM Antibody Pending Hepatitis B Surface Antigen Pending Hepatitis B Core IgM Antibody Pending Hepatitis C Antibody Pending Stool Occult Blood Negative (NEGATIVE) Plan Problems: (1) Osteomyelitis of left foot Assessment & Plan: Patient with history of left foot amputation currently identified to have a 1 cm dehiscence at the apex of the amputation flap. It is dry with a scab does not seem to have any underlying fluctuance fluid collection or infection. It is a skin dehiscence but will require local wound care until improved. Furthermore sutures still in place and were removed at the bedside by myself. Once sutures removed the remaining the flap was evaluated and identified to be intact Well. No signs of active infection throughout the stump. Viable stump identified. No nausea vomiting. Labs noted. We will continue with local wound care. Full respiratory and isolation precautions were followed upon entering the room given patient's admission condition. PPD worn during examination and procedure (2) Ulcer of amputation stump of foot Assessment & Plan: Wash daily with normal saline, apply Thera honey followed by OPTi foam dressing daily and as needed saturation Bentley Wharton Jun 04, 2019 15:20
[2019-06-04 16:00] VITALS: BP 154/83
--- NOTE | 2019-06-04 16:00 | NUR ---
NURSE NOTES: The patient is stable without acute distress or shortness of breath. Will continue plan of care.
[2019-06-04] MEDS: Renvela 800mg Pkt ORAL SCH (17:36)
--- NOTE | 2019-06-04 17:38 | Pulmonology Progress Note ---
Assessment/Plan Assessment/Plan Pulmonary Progress Note HPI 53-year-old male with past medical history of ESRD on HD, HTN, IDDM with neuropathy, HTN, HLD, prior CVA, PVD s/p L BKA (04/19/2019) admitted with severe dyspnea, chest pressure, fevers, cough, denies foreign travel, room mate has been sick. CXR suggestive of aute pulmonary edema/fluid overload. On BiPAP PRN, currently NC. Improving CXR with daily HD Covid 19 pending Allergies: NO KNOWN ALLERGIES Past Medical History: ESRD on HD, Diabetes Mellitus, Peripheral Neuropathy, Hypertension, Hyperlipidemia, PVD, Left BKA Resuscitation status Full code Physical Exam Height (Feet): 5 Height (Inches): 7.00 Weight (Pounds): 180 Vital Signs Noted General Appearance: no apparent distress, alert HEENT: atraumatic, anicteric Neck: normal alignment, supple, normal inspection Respiratory/Chest: No respiratory distress, no accessory muscle use, CTAB Cardiovascular/Chest: normal rate, regular rhythm Abdomen: non tender, soft, no organomegaly Extremities: non-tender, normal inspection, Left BKA bandaged 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, no motor/sensory deficits Laboratory Tests Noted Labs: Noted EKG: ST, no acute ST changes CXR: Bilateral parenchymal infiltrates Assessment: ESRD on HD Volume Overload Hypoxic Respiratory Failure Possible Pneumonia/Viral Illness Hypertension IDDM with neuropathy Prior CVA PVD s/p L BKA, candidal stump infection Hyperlipidemia Anemia GERD Plan: HD per Renal Antibiotics per ID Await cultures Viral studies pending Isolation O2/BiPAP PRN BiPAP PRN PPX Monitor labs JULIANA RN Subjective ROS Limited/Unobtainable: No Allergies: Coded Allergies: NO KNOWN ALLERGIES (Verified Allergy, Unknown, 12/04/17) Objective Last 24 Hour Vital Signs Date Time Temp Pulse Resp B/P (MAP) Pulse Ox O2 Delivery O2 Flow Rate FiO2 06/04/19 16:00 3.0 06/04/19 16:00 Nasal Cannula 3.0 06/04/19 16:00 98.3 94 18 154/83 (106) 100 06/04/19 12:42 96 146/87 06/04/19 12:18 146/87 06/04/19 12:00 3.0 06/04/19 12:00 83 06/04/19 12:00 98.5 87 18 146/87 (106) 100 06/04/19 12:00 Nasal Cannula 3.0 06/04/19 08:56 92 145/88 06/04/19 08:55 145/88 06/04/19 08:00 3.0 06/04/19 08:00 Nasal Cannula 3.0 06/04/19 08:00 98.2 90 18 150/86 (107) 100 06/04/19 08:00 92 06/04/19 07:00 100 Nasal Cannula 3.0 32 06/04/19 07:00 90 20 100 Nasal Cannula 3.0 32 06/04/19 06:08 98.0 06/04/19 05:39 134/88 06/04/19 04:00 98.0 95 18 126/72 (90) 100 06/04/19 04:00 Nasal Cannula 3.0 06/04/19 04:00 3.0 06/04/19 04:00 93 06/04/19 00:00 Nasal Cannula 3.0 06/04/19 00:00 3.0 06/04/19 00:00 98.0 100 18 152/92 (112) 100 06/04/19 00:00 90 06/03/19 23:28 152/92 06/03/19 22:14 99 Nasal Cannula 3.0 32 06/03/19 22:12 104 20 99 Nasal Cannula 3.0 32 06/03/19 20:00 98.7 104 16 137/88 (104) 100 06/03/19 20:00 104 06/03/19 20:00 3.0 06/03/19 20:00 Nasal Cannula 3.0 Intake and Output 06/03/19 06/04/19 19:00 07:00 Intake Total 415 ml Output Total 4000 ml Balance -3585 ml Intake Oral 360 ml IV Total 55 ml Output Hemodialysis UF 4000 ml # Bowel Movements 3 Laboratory Tests 06/04/19 03:50: White Blood Count 6.7, Red Blood Count 3.15L, Hemoglobin 9.7L, Hematocrit 29.3L , Mean Corpuscular Volume 93, Mean Corpuscular Hemoglobin 30.7, Mean Corpuscular Hemoglobin Concent 33.0, Red Cell Distribution Width 16.5H, Platelet Count 195, Mean Platelet Volume 6.2L, Neutrophils (%) (Auto) 65.4, Lymphocytes (%) (Auto) 18.5L, Monocytes (%) (Auto) 11.4H, Eosinophils (%) (Auto ) 3.8H, Basophils (%) (Auto) 1.0, Sodium Level 142, Potassium Level 4.4, Chloride Level 100, Carbon Dioxide Level 29, Anion Gap 13, Blood Urea Nitrogen 57H, Creatinine 7.4H, Estimat Glomerular Filtration Rate 9.5, Glucose Level 272H , Calcium Level 9.2, Phosphorus Level 6.1H, Magnesium Level 2.5H, Total Bilirubin 0.4, Aspartate Amino Transf (AST/SGOT) 85H, Alanine Aminotransferase ( ALT/SGPT) 180H, Alkaline Phosphatase 158H, C-Reactive Protein, Quantitative 11.9H, Total Protein 8.2, Albumin 2.9L, Globulin 5.3, Albumin/Globulin Ratio 0.5L, Hepatitis A IgM Antibody [Pending], Hepatitis B Surface Antigen [Pending] , Hepatitis B Core IgM Antibody [Pending], Hepatitis C Antibody [Pending] 06/04/19 04:00: Stool Occult Blood Negative Current Medications Medications (Trade) Dose Ordered Sig/Felix Route PRN Reason Start Time Stop Time Status Last Admin Dose Admin Acetaminophen (Tylenol) 650 mg Q4H PRN ORAL Mild Pain (Pain Scale 1-3) 05/31/19 13:30 06/30/19 13:29 Acetaminophen/ Hydrocodone Bitart ([place] 5/325) 1 tab Q4H PRN ORAL For Pain 05/31/19 13:30 06/07/19 13:29 06/04/19 05:38 Albuterol/ Ipratropium (Combivent Respimat) 2 puffs Q4H PRN INH Shortness of Breath 06/01/19 17:45 07/01/19 17:44 Amlodipine Besylate (Norvasc) 10 mg DAILY ORAL 06/01/19 09:00 07/01/19 08:59 06/04/19 08:56 Aspirin (Ecotrin) 81 mg DAILY ORAL 06/01/19 09:00 07/16/19 08:59 06/04/19 08:55 Carvedilol (Coreg) 3.125 mg EVERY 12 HOURS ORAL 06/04/19 12:45 07/04/19 12:44 06/04/19 12:42 Ceftriaxone Sodium 1 gm/ Dextrose 55 ml @ 110 mls/hr Q24H IVPB 06/01/19 12:00 06/08/19 11:59 06/04/19 12:18 Clonidine HCl (Catapres Tab) 0.1 mg Q6H PRN ORAL SBP > 180 05/31/19 23:00 08/29/19 22:59 05/31/19 23:57 Clopidogrel Bisulfate (Plavix) 75 mg DAILY ORAL 06/01/19 09:00 07/01/19 08:59 06/04/19 08:56 Dextrose (Dextrose 50%) 25 ml Q30M PRN IV Hypoglycemia 05/31/19 13:30 08/29/19 13:29 Dextrose (Dextrose 50%) 50 ml Q30M PRN IV Hypoglycemia 05/31/19 13:30 08/29/19 13:29 Diphenhydramine HCl (Benadryl) 25 mg Q6H PRN ORAL Itching/Pruritis 05/31/19 13:30 06/30/19 13:29 Heparin Sodium (Porcine) (Heparin 5000 units/ml) 5,000 units EVERY 12 HOURS SUBQ 05/31/19 21:00 07/15/19 20:59 06/03/19 20:26 Heparin Sodium (Porcine) (Heparin Sod 1000 units/ml 10ml) 2,000 unit ONCE PRN IV HD 06/05/19 06:00 06/05/19 23:59 Hydralazine HCl (Apresoline) 10 mg Q6HR ORAL 06/03/19 12:00 09/01/19 11:59 06/04/19 12:18 Hydralazine HCl (Apresoline) 25 mg Q6H PRN ORAL SBP>170 06/01/19 03:00 08/30/19 02:59 06/02/19 20:50 Insulin Aspart (NovoLOG) BEFORE MEALS AND HS SUBQ 05/31/19 16:30 08/29/19 16:29 06/04/19 17:23 Insulin Detemir (Levemir) 10 units DAILY SUBQ 06/01/19 09:00 08/30/19 08:59 06/04/19 09:22 Lorazepam (Ativan) 1 mg Q4H PRN ORAL For Anxiety 05/31/19 13:30 06/07/19 13:29 Losartan Potassium (Cozaar) 100 mg DAILY ORAL 06/01/19 09:00 07/01/19 08:59 06/04/19 08:55 Multivitamins Therapeutic (Therapeutic Multivitamin) 1 ea DAILY ORAL 06/01/19 09:00 07/01/19 08:59 06/04/19 08:57 Nitroglycerin (Ntg) 0.4 mg Q5M PRN SL Prn Chest Pain 05/31/19 13:30 06/30/19 13:29 Pantoprazole (Protonix) 40 mg BID ORAL 06/02/19 18:00 07/01/19 08:59 06/04/19 08:57 Pravastatin Sodium (Pravachol) 80 mg BEDTIME ORAL 05/31/19 21:00 06/30/19 20:59 06/03/19 20:25 Sevelamer Carbonate (Renvela) 1,600 mg THREE TIMES A DAY ORAL 06/04/19 18:00 09/02/19 17:59 Trazodone HCl (Desyrel) 50 mg BEDTIME ORAL 05/31/19 21:00 06/30/19 20:59 06/03/19 20:25 Jacinto Cisneros MD Jun 04, 2019 17:38
--- NOTE | 2019-06-04 17:41 | General Progress Note ---
Assessment/Plan Assessment/Plan: #ESRD on HD #Acute pulmonary edema #Acute hypoxic respiratory failure #Possible bilateral pneumonia, less likely given improved with fluid removal - Nephrology following - HD and UF per Renal - repeat CXR - continue abx per ID - Follow up COVID19 - Pulm and ID consulted #L BKA wound dehiscence #s/p L BKA 04/19/2019 #S/p LLE I&&D w/ debridement and wound vac placement 05/17/19, cultures growing Indu glabrata -local wound care -cont micafungin until 06/04 as per ID recs #Anemia of chronic disease - Hgb currently higher than prior baseline of ~7-8 - Monitor CBC #DM complicated by neuropathy #Hyperglycemia uncontrolled - Continue lantus 10 units subq daily - SSI lispro - Carb controlled diet #HTN #HLD -Cont Losartan 100mg daily -Cont metoprolol 25mg BID -Cont cardura 2mg daily -norvasc 10mg, daily -Cont Clonidine PRN -Cont Statin -Cardiology following #GERD Cont Protonix I spent 35 minutes on this patient's case, and >50% was dedicated to counseling and/or care coordination. Subjective Date patient seen: Jun 04, 2019 Time patient seen: 17:39 ROS Limited/Unobtainable: No Constitutional: Denies: chills, fever Cardiovascular: Denies: chest pain Respiratory: Denies: cough Gastrointestinal/Abdominal: Denies: abdominal pain Allergies: Coded Allergies: NO KNOWN ALLERGIES (Verified Allergy, Unknown, 12/04/17) Subjective Follow up for acute hypoxic resp failure, fluid overload, acute pulm edema Respiratory status much improved over the weekend No new complaints. Objective Last 24 Hour Vital Signs Date Time Temp Pulse Resp B/P (MAP) Pulse Ox O2 Delivery O2 Flow Rate FiO2 06/04/19 17:36 154/83 06/04/19 16:00 3.0 06/04/19 16:00 Nasal Cannula 3.0 06/04/19 16:00 98.3 94 18 154/83 (106) 100 06/04/19 12:42 96 146/87 06/04/19 12:18 146/87 06/04/19 12:00 3.0 06/04/19 12:00 83 06/04/19 12:00 98.5 87 18 146/87 (106) 100 06/04/19 12:00 Nasal Cannula 3.0 06/04/19 08:56 92 145/88 06/04/19 08:55 145/88 06/04/19 08:00 3.0 06/04/19 08:00 Nasal Cannula 3.0 06/04/19 08:00 98.2 90 18 150/86 (107) 100 06/04/19 08:00 92 06/04/19 07:00 100 Nasal Cannula 3.0 32 06/04/19 07:00 90 20 100 Nasal Cannula 3.0 32 06/04/19 06:08 98.0 06/04/19 05:39 134/88 06/04/19 04:00 98.0 95 18 126/72 (90) 100 06/04/19 04:00 Nasal Cannula 3.0 06/04/19 04:00 3.0 06/04/19 04:00 93 06/04/19 00:00 Nasal Cannula 3.0 06/04/19 00:00 3.0 06/04/19 00:00 98.0 100 18 152/92 (112) 100 06/04/19 00:00 90 06/03/19 23:28 152/92 06/03/19 22:14 99 Nasal Cannula 3.0 32 06/03/19 22:12 104 20 99 Nasal Cannula 3.0 32 06/03/19 20:00 98.7 104 16 137/88 (104) 100 06/03/19 20:00 104 06/03/19 20:00 3.0 06/03/19 20:00 Nasal Cannula 3.0 Intake and Output 06/03/19 06/04/19 19:00 07:00 Intake Total 415 ml Output Total 4000 ml Balance -3585 ml Intake Oral 360 ml IV Total 55 ml Output Hemodialysis UF 4000 ml # Bowel Movements 3 Laboratory Tests 06/04/19 03:50: White Blood Count 6.7, Red Blood Count 3.15L, Hemoglobin 9.7L, Hematocrit 29.3L , Mean Corpuscular Volume 93, Mean Corpuscular Hemoglobin 30.7, Mean Corpuscular Hemoglobin Concent 33.0, Red Cell Distribution Width 16.5H, Platelet Count 195, Mean Platelet Volume 6.2L, Neutrophils (%) (Auto) 65.4, Lymphocytes (%) (Auto) 18.5L, Monocytes (%) (Auto) 11.4H, Eosinophils (%) (Auto ) 3.8H, Basophils (%) (Auto) 1.0, Sodium Level 142, Potassium Level 4.4, Chloride Level 100, Carbon Dioxide Level 29, Anion Gap 13, Blood Urea Nitrogen 57H, Creatinine 7.4H, Estimat Glomerular Filtration Rate 9.5, Glucose Level 272H , Calcium Level 9.2, Phosphorus Level 6.1H, Magnesium Level 2.5H, Total Bilirubin 0.4, Aspartate Amino Transf (AST/SGOT) 85H, Alanine Aminotransferase ( ALT/SGPT) 180H, Alkaline Phosphatase 158H, C-Reactive Protein, Quantitative 11.9H, Total Protein 8.2, Albumin 2.9L, Globulin 5.3, Albumin/Globulin Ratio 0.5L, Hepatitis A IgM Antibody [Pending], Hepatitis B Surface Antigen [Pending] , Hepatitis B Core IgM Antibody [Pending], Hepatitis C Antibody [Pending] 06/04/19 04:00: Stool Occult Blood Negative Height (Feet): 5 Height (Inches): 8.00 Weight (Pounds): 175 General Appearance: alert Cardiovascular: normal rate, regular rhythm Respiratory/Chest: lungs clear, normal breath sounds Abdomen: non tender, soft Neurologic: alert, oriented x 3 Torres Perea MD Jun 04, 2019 17:41
--- NOTE | 2019-06-04 19:20 | NUR ---
NURSE NOTES: Pt report received from NEVIN FARMER. pt remains stable. pt is alert and oriented times 3. able to follow commands. pt is on 3 L NC able to sat at 99%, no signs symptoms of acute resp distress noted. pt is on monitor technician showing NSR, no acute cardiac distress noted. pt bed is low, locked, armed, call light within reach, bed rails up times 3. will follow plan of care.
--- NOTE | 2019-06-04 19:20 | NUR ---
HAND-OFF: Report given to AMRLENY Rodrigues. The patient is resting on the bed without acute distress or shortness of breath. The patient's bed in the lowest position, call light in reach, and fall and aspiration precaution reinforced. IV site intact and patent. R upper arm AV shunt intact. Oxygen therapy per order. Endorsed plan of care.
[2019-06-04 20:00] VITALS: BP 145/94
[2019-06-04] MEDS: TraZODone 50mg tab ORAL SCH (20:32)
[2019-06-05] VITALS: BP 143/92
[2019-06-05 04:00] VITALS: BP 132/88
[2019-06-05] MEDS ORDERED: Heparin Sod 1000 units/ml 10ml IV PRN (06:00)
[2019-06-05] MEDS: HydrALAZINE 10mg Tab ORAL SCH ×3 (06:05→17:22)
[2019-06-05] MEDS: NovoLOG Insulin Flexpen SUBQ SCH ×3 (06:32→17:32)
--- NOTE | 2019-06-05 07:20 | NUR ---
HAND-OFF: Report given to RACHEL FARMER. pt remains stable.
[2019-06-05 07:36] LABS: BASOPHILS % (AUTO) 1.1 % (0.0-2.0); EOSINOPHILS % (AUTO) 4.6 % (0.0-3.0); HEMATOCRIT 26.4 % (42.0-52.0); LYMPHOCYTES % (AUTO) 22.2 % (20.0-45.0); MEAN CORPUSCULAR VOLUME 92 FL (80-99); MONOCYTES % (AUTO) 11.1 % (1.0-10.0); PLATELET COUNT 208 K/UL (150-450); RED BLOOD COUNT 2.86 M/UL (4.70-6.10); RED CELL DISTRIBUTION WIDTH 16.6 % (11.6-14.8); WHITE BLOOD COUNT 6.7 K/UL (4.8-10.8)
--- NOTE | 2019-06-05 08:00 | NUR ---
NURSE NOTES: Patient received lying in bed, asleep but arousable to name. No complains of pain. On nasal cannula at 3 lpm, no respiratory distress, respirations even and unlabored. Right upper arm AV shunt with bruit and thrill present, no complications noted. Right hand IV, TKO, asymptomatic. Left BKA stump intact. Patient Sinus Rhythm on the monitor, rate of 80s. Patient for Hemodialysis today. Safety measures implemented. Call light placed within reach. Addendum: 06/05/19 at 0950 by Ras Albarran RN wrong charting - Left hand peripheral IV.
[2019-06-05 08:19] LABS: ALANINE AMINOTRANSFERASE 186 U/L (12-78); ALBUMIN 2.9 G/DL (3.4-5.0); ALBUMIN/GLOBULIN RATIO 0.6 (1.0-2.7); ALKALINE PHOSPHATASE 135 U/L (46-116); ANION GAP 15 mmol/L (5-15); ASPARTATE AMINO TRANSFERASE 55 U/L (15-37); BILIRUBIN,TOTAL 0.4 MG/DL (0.2-1.0); BLOOD UREA NITROGEN 86 mg/dL (7-18); CALCIUM 9.6 MG/DL (8.5-10.1); CARBON DIOXIDE 23 MMOL/L (21-32); CHLORIDE 94 MMOL/L (98-107); CREATININE 9.7 MG/DL (0.55-1.30); POTASSIUM 5.3 MMOL/L (3.5-5.1); SODIUM 132 MMOL/L (136-145)
[2019-06-05 08:30] VITALS: BP 150/90
[2019-06-05] MEDS: Multivitamin w/Minerals tab ORAL SCH (08:37)
[2019-06-05] MEDS: Aspirin EC 81mg tab ORAL SCH (08:37)
[2019-06-05] MEDS: Renvela 800mg Pkt ORAL SCH ×3 (08:38→17:29)
--- NOTE | 2019-06-05 08:43 | General Progress Note ---
Assessment/Plan Assessment/Plan: 1. History of end-stage renal disease, on hemodialysis. 2. Osteodystrophy. 3. Hypertension. 4. Diabetes type 2. 5. Peripheral vascular disease. 6. History of gangrene of the left leg requiring amputation 7. Anemia 8. Elevated LFTS anemia>>> neg stool ob>> stable H&H>>> hold GI procedures for now stable H&H no obvious GIB abd us hepatitis panel>>> NEG fu COVED 19 repeat labs in am Subjective Allergies: Coded Allergies: NO KNOWN ALLERGIES (Verified Allergy, Unknown, 12/04/17) Objective Last 24 Hour Vital Signs Date Time Temp Pulse Resp B/P (MAP) Pulse Ox O2 Delivery O2 Flow Rate FiO2 06/05/19 06:05 155/90 06/05/19 04:00 Nasal Cannula 3.0 06/05/19 04:00 3.0 06/05/19 04:00 80 06/05/19 04:00 97.6 72 18 132/88 (103) 99 06/05/19 00:00 3.0 06/05/19 00:00 Nasal Cannula 3.0 06/05/19 00:00 85 06/05/19 00:00 97.9 86 18 143/92 (109) 98 06/04/19 23:11 147/92 06/04/19 20:32 92 142/95 06/04/19 20:00 97.8 95 18 145/94 (111) 99 06/04/19 20:00 Nasal Cannula 3.0 06/04/19 20:00 3.0 06/04/19 20:00 88 06/04/19 19:11 92 20 98 Nasal Cannula 3.0 32 06/04/19 19:11 98 Nasal Cannula 3.0 32 06/04/19 17:36 154/83 06/04/19 16:00 3.0 06/04/19 16:00 Nasal Cannula 3.0 06/04/19 16:00 87 06/04/19 16:00 98.3 94 18 154/83 (106) 100 06/04/19 12:42 96 146/87 06/04/19 12:18 146/87 06/04/19 12:00 3.0 06/04/19 12:00 83 06/04/19 12:00 98.5 87 18 146/87 (106) 100 06/04/19 12:00 Nasal Cannula 3.0 06/04/19 08:56 92 145/88 06/04/19 08:55 145/88 Intake and Output 06/04/19 06/05/19 19:00 07:00 Intake Total 800 ml Balance 800 ml Intake Oral 800 ml # Bowel Movements 4 Laboratory Tests 06/05/19 05:20: White Blood Count 6.7, Red Blood Count 2.86L, Hemoglobin 9.0L, Hematocrit 26.4L , Mean Corpuscular Volume 92, Mean Corpuscular Hemoglobin 31.5H, Mean Corpuscular Hemoglobin Concent 34.1, Red Cell Distribution Width 16.6H, Platelet Count 208, Mean Platelet Volume 7.1, Neutrophils (%) (Auto) 61.0, Lymphocytes (%) (Auto) 22.2, Monocytes (%) (Auto) 11.1H, Eosinophils (%) (Auto) 4.6H, Basophils (%) (Auto) 1.1, Sodium Level 132L, Potassium Level 5.3H, Chloride Level 94L, Carbon Dioxide Level 23, Anion Gap 15, Blood Urea Nitrogen 86H, Creatinine 9.7H, Estimat Glomerular Filtration Rate 6.9, Glucose Level 267H , Calcium Level 9.6, Total Bilirubin 0.4, Aspartate Amino Transf (AST/SGOT) 55H , Alanine Aminotransferase (ALT/SGPT) 186H, Alkaline Phosphatase 135H, Total Protein 7.8, Albumin 2.9L, Globulin 4.9, Albumin/Globulin Ratio 0.6L Height (Feet): 5 Height (Inches): 8.00 Weight (Pounds): 175 General Appearance: alert EENT: normal ENT inspection Neck: supple Cardiovascular: normal rate Respiratory/Chest: decreased breath sounds Abdomen: normal bowel sounds, non tender, soft Extremities: non-tender Adithya Valentine MD Jun 05, 2019 08:43
[2019-06-05] MEDS: Levemir Flexpen SUBQ SCH (08:51)
[2019-06-05] MEDS: Losartan 50mg tab ORAL SCH (09:00)
[2019-06-05] MEDS: Heparin 5000 units/ml inj SUBQ SCH (09:00)
--- NOTE | 2019-06-05 10:05 | NUR ---
NURSE NOTES: Received result from charge rn, patient is negative for Covid19. Isolation discontinued per protocol.
--- NOTE | 2019-06-05 10:40 | Infectious Diseases Prog Note ---
Assessment/Plan Assessment/Plan antibiotics : ceftriaxone A 1. pneumonia improving covid 19 negative 2. leucocytosis resolved 3. CVA 4. diabetes mellitus 5. hypertension 6. renal failure on dialysis P 1. continue ceftriaxone 1 more day 2. will follow up cultures 3. d/c respiratory isolation Subjective Constitutional: Denies: fever, chills Respiratory: Reports: productive cough - decreased; Denies: shortness of breath Gastrointestinal/Abdominal: Denies: nausea, vomiting, diarrhea Musculoskeletal: Denies: pain Allergies: Coded Allergies: NO KNOWN ALLERGIES (Verified Allergy, Unknown, 12/04/17) Objective Vital Signs Last 24 Hour Vital Signs Date Time Temp Pulse Resp B/P (MAP) Pulse Ox O2 Delivery O2 Flow Rate FiO2 06/05/19 08:30 97.6 76 14 150/90 (110) 99 06/05/19 08:00 2.0 06/05/19 08:00 Nasal Cannula 3.0 06/05/19 06:05 155/90 06/05/19 04:00 Nasal Cannula 3.0 06/05/19 04:00 3.0 06/05/19 04:00 80 06/05/19 04:00 97.6 72 18 132/88 (103) 99 06/05/19 00:00 3.0 06/05/19 00:00 Nasal Cannula 3.0 06/05/19 00:00 85 06/05/19 00:00 97.9 86 18 143/92 (109) 98 06/04/19 23:11 147/92 06/04/19 20:32 92 142/95 06/04/19 20:00 97.8 95 18 145/94 (111) 99 06/04/19 20:00 Nasal Cannula 3.0 06/04/19 20:00 3.0 06/04/19 20:00 88 06/04/19 19:11 92 20 98 Nasal Cannula 3.0 32 06/04/19 19:11 98 Nasal Cannula 3.0 32 06/04/19 17:36 154/83 06/04/19 16:00 3.0 06/04/19 16:00 Nasal Cannula 3.0 06/04/19 16:00 87 06/04/19 16:00 98.3 94 18 154/83 (106) 100 06/04/19 12:42 96 146/87 06/04/19 12:18 146/87 06/04/19 12:00 3.0 06/04/19 12:00 83 06/04/19 12:00 98.5 87 18 146/87 (106) 100 06/04/19 12:00 Nasal Cannula 3.0 Height (Feet): 5 Height (Inches): 8.00 Weight (Pounds): 175 Respiratory/Chest: lungs clear Cardiovascular: normal rate, regular rhythm, no gallop/murmur Abdomen: soft, non tender Extremities: no edema Laboratory Tests Test 06/05/19 05:20 White Blood Count 6.7 K/UL (4.8-10.8) Red Blood Count 2.86 M/UL (4.70-6.10) L Hemoglobin 9.0 G/DL (14.2-18.0) L Hematocrit 26.4 % (42.0-52.0) L Mean Corpuscular Volume 92 FL (80-99) Mean Corpuscular Hemoglobin 31.5 PG (27.0-31.0) H Mean Corpuscular Hemoglobin Concent 34.1 G/DL (32.0-36.0) Red Cell Distribution Width 16.6 % (11.6-14.8) H Platelet Count 208 K/UL (150-450) Mean Platelet Volume 7.1 FL (6.5-10.1) Neutrophils (%) (Auto) 61.0 % (45.0-75.0) Lymphocytes (%) (Auto) 22.2 % (20.0-45.0) Monocytes (%) (Auto) 11.1 % (1.0-10.0) H Eosinophils (%) (Auto) 4.6 % (0.0-3.0) H Basophils (%) (Auto) 1.1 % (0.0-2.0) Sodium Level 132 MMOL/L (136-145) L Potassium Level 5.3 MMOL/L (3.5-5.1) H Chloride Level 94 MMOL/L (98-107) L Carbon Dioxide Level 23 MMOL/L (21-32) Anion Gap 15 mmol/L (5-15) Blood Urea Nitrogen 86 mg/dL (7-18) H Creatinine 9.7 MG/DL (0.55-1.30) H Estimat Glomerular Filtration Rate 6.9 mL/min (>60) Glucose Level 267 MG/DL (74-106) H Calcium Level 9.6 MG/DL (8.5-10.1) Total Bilirubin 0.4 MG/DL (0.2-1.0) Aspartate Amino Transf (AST/SGOT) 55 U/L (15-37) H Alanine Aminotransferase (ALT/SGPT) 186 U/L (12-78) H Alkaline Phosphatase 135 U/L (46-116) H Total Protein 7.8 G/DL (6.4-8.2) Albumin 2.9 G/DL (3.4-5.0) L Globulin 4.9 g/dL Albumin/Globulin Ratio 0.6 (1.0-2.7) L Current Medications Medications (Trade) Dose Ordered Sig/Felix Route PRN Reason Start Time Stop Time Status Last Admin Dose Admin Acetaminophen (Tylenol) 650 mg Q4H PRN ORAL Mild Pain (Pain Scale 1-3) 05/31/19 13:30 06/30/19 13:29 Acetaminophen/ Hydrocodone Bitart ([place] 5/325) 1 tab Q4H PRN ORAL For Pain 05/31/19 13:30 06/07/19 13:29 06/04/19 05:38 Albuterol/ Ipratropium (Combivent Respimat) 2 puffs Q4H PRN INH Shortness of Breath 06/01/19 17:45 07/01/19 17:44 Amlodipine Besylate (Norvasc) 10 mg DAILY ORAL 06/01/19 09:00 07/01/19 08:59 06/04/19 08:56 Aspirin (Ecotrin) 81 mg DAILY ORAL 06/01/19 09:00 07/16/19 08:59 06/05/19 08:37 Carvedilol (Coreg) 6.25 mg EVERY 12 HOURS ORAL 06/05/19 09:00 07/04/19 12:44 Ceftriaxone Sodium 1 gm/ Dextrose 55 ml @ 110 mls/hr Q24H IVPB 06/01/19 12:00 06/08/19 11:59 06/04/19 12:18 Clonidine HCl (Catapres Tab) 0.1 mg Q6H PRN ORAL SBP > 180 05/31/19 23:00 08/29/19 22:59 05/31/19 23:57 Clopidogrel Bisulfate (Plavix) 75 mg DAILY ORAL 06/01/19 09:00 07/01/19 08:59 06/05/19 08:38 Dextrose (Dextrose 50%) 25 ml Q30M PRN IV Hypoglycemia 05/31/19 13:30 08/29/19 13:29 Dextrose (Dextrose 50%) 50 ml Q30M PRN IV Hypoglycemia 05/31/19 13:30 08/29/19 13:29 Diphenhydramine HCl (Benadryl) 25 mg Q6H PRN ORAL Itching/Pruritis 05/31/19 13:30 06/30/19 13:29 Heparin Sodium (Porcine) (Heparin 5000 units/ml) 5,000 units EVERY 12 HOURS SUBQ 05/31/19 21:00 07/15/19 20:59 06/04/19 20:30 Heparin Sodium (Porcine) (Heparin Sod 1000 units/ml 10ml) 2,000 unit ONCE PRN IV HD 06/05/19 06:00 06/05/19 23:59 Hydralazine HCl (Apresoline) 10 mg Q6HR ORAL 06/03/19 12:00 09/01/19 11:59 06/05/19 06:05 Hydralazine HCl (Apresoline) 25 mg Q6H PRN ORAL SBP>170 06/01/19 03:00 08/30/19 02:59 06/02/19 20:50 Insulin Aspart (NovoLOG) BEFORE MEALS AND HS SUBQ 05/31/19 16:30 08/29/19 16:29 06/05/19 06:32 Insulin Detemir (Levemir) 10 units DAILY SUBQ 06/01/19 09:00 08/30/19 08:59 06/05/19 08:51 Lorazepam (Ativan) 1 mg Q4H PRN ORAL For Anxiety 05/31/19 13:30 06/07/19 13:29 Losartan Potassium (Cozaar) 100 mg DAILY ORAL 06/01/19 09:00 07/01/19 08:59 06/04/19 08:55 Multivitamins Therapeutic (Therapeutic Multivitamin) 1 ea DAILY ORAL 06/01/19 09:00 07/01/19 08:59 06/05/19 08:37 Nitroglycerin (Ntg) 0.4 mg Q5M PRN SL Prn Chest Pain 05/31/19 13:30 06/30/19 13:29 Pantoprazole (Protonix) 40 mg BID ORAL 06/02/19 18:00 07/01/19 08:59 06/05/19 08:37 Pravastatin Sodium (Pravachol) 80 mg BEDTIME ORAL 05/31/19 21:00 06/30/19 20:59 06/04/19 20:31 Sevelamer Carbonate (Renvela) 1,600 mg THREE TIMES A DAY ORAL 06/04/19 18:00 09/02/19 17:59 06/05/19 08:38 Trazodone HCl (Desyrel) 50 mg BEDTIME ORAL 05/31/19 21:00 06/30/19 20:59 06/04/19 20:32 Maricarmen Gomes MD Jun 05, 2019 10:40
[2019-06-05 11:57] VITALS: BP 153/100
[2019-06-05] MEDS: cefTRIAXone 1 GM in D5W 55 ML IVPB SCH (12:17)
--- NOTE | 2019-06-05 12:22 | NUR ---
BUYING [employer] EX[employer] TENDER SI; PNA,FLUID OVERLOAD,PULMONARY EDEMA T. 97.6 HR 72 RR 14 B/P 155/90 2L NC O2 SAT @ 98% COVID 19 =NEGATIVE IS: CEFTRIAXONE IV PROTONIX STEP DOWN STATUS
--- NOTE | 2019-06-05 13:25 | Surgery Progress Note ---
Surgery Progress Note Subjective Additional Comments no acute events much improved awake, responsive comfortable states his bka was at [facility] but cannot recall surgeon wounds look good movement good Objective Last 24 Hour Vital Signs Date Time Temp Pulse Resp B/P (MAP) Pulse Ox O2 Delivery O2 Flow Rate FiO2 06/05/19 12:17 160/90 06/05/19 12:00 Room Air 06/05/19 11:57 97.8 83 12 153/100 (117) 100 06/05/19 08:30 97.6 76 14 150/90 (110) 99 06/05/19 08:00 81 06/05/19 08:00 2.0 06/05/19 08:00 Nasal Cannula 3.0 06/05/19 06:05 155/90 06/05/19 04:00 Nasal Cannula 3.0 06/05/19 04:00 3.0 06/05/19 04:00 80 06/05/19 04:00 97.6 72 18 132/88 (103) 99 06/05/19 00:00 3.0 06/05/19 00:00 Nasal Cannula 3.0 06/05/19 00:00 85 06/05/19 00:00 97.9 86 18 143/92 (109) 98 06/04/19 23:11 147/92 06/04/19 20:32 92 142/95 06/04/19 20:00 97.8 95 18 145/94 (111) 99 06/04/19 20:00 Nasal Cannula 3.0 06/04/19 20:00 3.0 06/04/19 20:00 88 06/04/19 19:11 92 20 98 Nasal Cannula 3.0 32 06/04/19 19:11 98 Nasal Cannula 3.0 32 06/04/19 17:36 154/83 06/04/19 16:00 3.0 06/04/19 16:00 Nasal Cannula 3.0 06/04/19 16:00 87 06/04/19 16:00 98.3 94 18 154/83 (106) 100 I&O Intake and Output 06/04/19 06/05/19 19:00 07:00 Intake Total 800 ml Balance 800 ml Intake Oral 800 ml # Bowel Movements 4 Dressing: dry Wound: clean Cardiovascular: RSR Respiratory: clear Abdomen: soft, non-tender, present bowel sounds Extremities: no tenderness, no cyanosis Laboratory Tests Test 06/05/19 05:20 White Blood Count 6.7 K/UL (4.8-10.8) Red Blood Count 2.86 M/UL (4.70-6.10) L Hemoglobin 9.0 G/DL (14.2-18.0) L Hematocrit 26.4 % (42.0-52.0) L Mean Corpuscular Volume 92 FL (80-99) Mean Corpuscular Hemoglobin 31.5 PG (27.0-31.0) H Mean Corpuscular Hemoglobin Concent 34.1 G/DL (32.0-36.0) Red Cell Distribution Width 16.6 % (11.6-14.8) H Platelet Count 208 K/UL (150-450) Mean Platelet Volume 7.1 FL (6.5-10.1) Neutrophils (%) (Auto) 61.0 % (45.0-75.0) Lymphocytes (%) (Auto) 22.2 % (20.0-45.0) Monocytes (%) (Auto) 11.1 % (1.0-10.0) H Eosinophils (%) (Auto) 4.6 % (0.0-3.0) H Basophils (%) (Auto) 1.1 % (0.0-2.0) Sodium Level 132 MMOL/L (136-145) L Potassium Level 5.3 MMOL/L (3.5-5.1) H Chloride Level 94 MMOL/L (98-107) L Carbon Dioxide Level 23 MMOL/L (21-32) Anion Gap 15 mmol/L (5-15) Blood Urea Nitrogen 86 mg/dL (7-18) H Creatinine 9.7 MG/DL (0.55-1.30) H Estimat Glomerular Filtration Rate 6.9 mL/min (>60) Glucose Level 267 MG/DL (74-106) H Calcium Level 9.6 MG/DL (8.5-10.1) Total Bilirubin 0.4 MG/DL (0.2-1.0) Aspartate Amino Transf (AST/SGOT) 55 U/L (15-37) H Alanine Aminotransferase (ALT/SGPT) 186 U/L (12-78) H Alkaline Phosphatase 135 U/L (46-116) H Total Protein 7.8 G/DL (6.4-8.2) Albumin 2.9 G/DL (3.4-5.0) L Globulin 4.9 g/dL Albumin/Globulin Ratio 0.6 (1.0-2.7) L Plan Problems: (1) Osteomyelitis of left foot Assessment & Plan: Patient with history of left foot amputation currently identified to have a 1 cm dehiscence at the apex of the amputation flap. It is dry with a scab does not seem to have any underlying fluctuance fluid collection or infection. It is a skin dehiscence but will require local wound care until improved. Furthermore sutures still in place and were removed at the bedside by myself. Once sutures removed the remaining the flap was evaluated and identified to be intact Well. No signs of active infection throughout the stump. Viable stump identified. No nausea vomiting. Labs noted. We will continue with local wound care. Full respiratory and isolation precautions were followed upon entering the room given patient's admission condition. PPD worn during examination and procedure (2) Ulcer of amputation stump of foot Assessment & Plan: Wash daily with normal saline, apply Thera honey followed by OPTi foam dressing daily and as needed saturation Bentley Wharton Jun 05, 2019 13:25
--- NOTE | 2019-06-05 13:59 | NUR ---
*-* DISCHARGE PLANNING *-* PATIENT HAS BEEN REFERRED BACK TO: [facility] P: [phone] F: [phone]
[2019-06-05] MEDS ORDERED: RENVELA0.8 GM ORAL (14:24)
[2019-06-05] MEDS ORDERED: COREG3.125 MG ORAL (14:24)
--- NOTE | 2019-06-05 14:24 | NUR ---
*-* DISCHARGE PLANNED *-* PATIENT HAS BEEN ACCEPTED BACK TO: [facility] SKILLED TRANSPORTATION HAS BEEN PLACED ON WILL CALL, PATIENT IS DUE FOR DIALYSIS ONCE IT IS OVER NURSE TO ACTIVATE TRANSPORTATION BY CALLING [phone]. Addendum: 06/05/19 at 1442 by PHOENIX DUMONT CM SPOKE TO PTS DAUGHTER SHE MENTIONED THE PERSON TO NOTIFY DIES A FEW YEARS AGO. MICHI DIAS [phone] PTStephani - SUKHI MATUTE [phone]
--- NOTE | 2019-06-05 14:29 | Discharge Summary ---
Discharge Summary Hospital Course Date of Admission May 31, 2019 at 09:44 Date of Discharge Admitting Diagnosis fluid overload, pulm edema, dyspnea HPI Mahsa Claire is a 53 year old male who was admitted on May 31, 2019 at 09 :44 for Fluid Overload,Pulmonary Edema,Dyspnea Hospital Course Mahsa Claire is a 53 year old male who was admitted on May 31, 2019 at 09 :44 for Fluid Overload,Pulmonary Edema,Dyspnea. Pt was treated for b/l PNA on CTX, was tested for COVID 19 which was ruled out. Pt found to be severely fluid overloaded and had multiple rounds of HD w/UF. Pt's respiratory status improved from venti mask to NC now on room air. Pt w/noted L BKA w/ stitches, surgery consulted and stitches were removed. Pt noted w/transaminitis, downtrending, hep panel was negative. Abd US unremarkable. D/w GI, pt stable for f/u as o/p of LFTs. Pt was NEGATIVE for COVID19. Pt's symptoms improved with abx. Pt to f/ u o/p w/GI/PCP for repeat LFT's. #ESRD on HD #Acute pulmonary edema #Acute hypoxic respiratory failure #Possible bilateral pneumonia, less likely given improved with fluid removal #L BKA wound dehiscence #s/p L BKA 04/19/2019 #S/p LLE I&&D w/ debridement and wound vac placement 05/17/19, cultures growing Indu glabrata #Anemia of chronic disease #Transaminitis #DM complicated by neuropathy #Hyperglycemia uncontrolled #HTN #HLD #elevated BNP #GERD Pt d/c in stable condition. D/c planning >30 mins. Discharge Medications New Medications: Carvedilol (Coreg) 3.125 Mg Tablet 6.25 MG ORAL EVERY 12 HOURS for 30 Days, #30 TAB 3 Refills Sevelamer Carbonate* (Renvela*) 0.8 Gm Powd.pack 1600 MG ORAL THREE TIMES A DAY for 30 Days, #90 PACK 3 Refills Continued Medications: Amlodipine Besylate* (Amlodipine Besylate*) 10 Mg Tablet 10 MG ORAL DAILY for HTN, TAB Ascorbic Acid* (Vitamin C*) 500 Mg Tablet 500 MG ORAL DAILY for supplement, #30 TAB 0 Refills Aspirin* (Aspir 81*) 81 Mg Tablet. 81 MG ORAL DAILY for CVA, TAB Cholecalciferol (Vitamin D3) (Vitamin D3) 10 Mcg Capsule 1000 UNIT PO for suppliment, CAP Clonidine Hcl* (Catapres*) 0.1 Mg Tablet 0.1 MG ORAL EVERY 6 HOURS for HTN, TAB Clopidogrel Bisulfate* (Plavix*) 75 Mg Tablet 75 MG ORAL DAILY for DVT, TAB Cranberry Fruit Concentrate (Cranberry) 450 Mg Capsule 900 MG PO for supplement, CAP Docusate Sodium* (Colace*) 100 Mg Capsule 100 MG ORAL DAILY for BM mgt, CAP Folic Acid* (Folic Acid*) 1 Mg Tablet 1 MG ORAL DAILY for supplement, TAB Folic Acid/Vitamin B Comp W-C (Ashlie-Brian Tablet) 0.8 Mg Tablet 0.8 MG PO DAILY for supplement, TAB Hydrocodone Bit/Acetaminophen 5-325* ([place] 5-325 Tablet*) 1 Each Tablet 1 TAB ORAL Q4H PRN for For Pain, #10 TAB Insulin Glargine (Lantus) 100 Unit/1 Ml Insuln.pen 10 SUBQ 8am for DM, #1 EA 0 Refills Insulin Lispro (Humalog) 100 Unit/1 Ml Vial 6 SUBQ TID for DM, #1 UNITS 0 Refills Losartan Potassium* (Cozaar*) 50 Mg Tablet 100 MG ORAL DAILY for HTN, TAB Multivitamin with Minerals (Multivitamins with Minerals) 1 Each Tablet 1 TAB ORAL DAILY for supplement, TAB Pantoprazole* (Protonix*) 40 Mg Tablet.dr 40 MG ORAL DAILY for GERD, TAB Pravastatin Sod* (Pravachol*) 20 Mg Tablet 80 MG ORAL BEDTIME for GERD, TAB Trazodone* (Trazodone*) 150 Mg Tablet 50 MG ORAL BEDTIME for depression, TAB Zinc (Zinc) 50 Mg Tablet 220 MG ORAL for supplement, TAB Discharge Condition Upon Discharge: stable Discharge Vital Signs Last Vital Signs Date Time Temp Pulse Resp B/P (MAP) Pulse Ox O2 Delivery O2 Flow Rate FiO2 06/05/19 12:17 160/90 06/05/19 12:00 Room Air 06/05/19 11:57 97.8 83 12 100 06/04/19 19:11 32 Discharge Disposition Patient was discharged to SNF. Discharge Diagnoses: (1) Respiratory distress (2) Pulmonary edema (3) ESRD (end stage renal disease) (4) HTN (hypertension) (5) Diabetes mellitus (6) Diabetic neuropathy (7) Sepsis (8) Diabetic nephropathy (9) 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 Discharge Instructions Discharge Instructions Follow up with: pcp and GI (Dr. Valentine or your choice GI) in 1 week for f/u on LFTs Adithya Cesar M.D. Jun 05, 2019 14:29
--- NOTE | 2019-06-05 14:30 | NUR ---
NURSE NOTES: Patient noted to have BM x1, soft and formed. Perineal care provided. No complains of pain noted. Patient to receive HD today.
--- NOTE | 2019-06-05 14:35 | Pulmonology Progress Note ---
Assessment/Plan Assessment/Plan Pulmonary Progress Note HPI 53-year-old male with past medical history of ESRD on HD, HTN, IDDM with neuropathy, HTN, HLD, prior CVA, PVD s/p L BKA (04/19/2019) admitted with severe dyspnea, chest pressure, fevers, cough, denies foreign travel, room mate has been sick. CXR suggestive of aute pulmonary edema/fluid overload. Much improved Improving CXR with daily HD Covid 19 R/o per chart review Allergies: NO KNOWN ALLERGIES Past Medical History: ESRD on HD, Diabetes Mellitus, Peripheral Neuropathy, Hypertension, Hyperlipidemia, PVD, Left BKA Resuscitation status Full code Physical Exam Height (Feet): 5 Height (Inches): 7.00 Weight (Pounds): 180 Vital Signs Noted General Appearance: no apparent distress, alert HEENT: atraumatic, anicteric Neck: normal alignment, supple, normal inspection Respiratory/Chest: No respiratory distress, no accessory muscle use, CTAB Cardiovascular/Chest: normal rate, regular rhythm Abdomen: non tender, soft, no organomegaly Extremities: non-tender, normal inspection, Left BKA bandaged 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, no motor/sensory deficits Laboratory Tests Noted Labs: Noted EKG: ST, no acute ST changes CXR: Bilateral parenchymal infiltrates Assessment: ESRD on HD Volume Overload Hypoxic Respiratory Failure Possible Pneumonia/Viral Illness Hypertension IDDM with neuropathy Prior CVA PVD s/p L BKA, candidal stump infection Hyperlipidemia Anemia GERD Plan: HD per Renal Antibiotics per ID Isolation O2 PRN PPX Monitor labs DC planning DW RN Subjective ROS Limited/Unobtainable: No Allergies: Coded Allergies: NO KNOWN ALLERGIES (Verified Allergy, Unknown, 12/04/17) Objective Last 24 Hour Vital Signs Date Time Temp Pulse Resp B/P (MAP) Pulse Ox O2 Delivery O2 Flow Rate FiO2 06/05/19 12:17 160/90 06/05/19 12:00 82 06/05/19 12:00 Room Air 06/05/19 11:57 97.8 83 12 153/100 (117) 100 06/05/19 08:30 97.6 76 14 150/90 (110) 99 06/05/19 08:00 81 06/05/19 08:00 2.0 06/05/19 08:00 Nasal Cannula 3.0 06/05/19 06:05 155/90 06/05/19 04:00 Nasal Cannula 3.0 06/05/19 04:00 3.0 06/05/19 04:00 80 06/05/19 04:00 97.6 72 18 132/88 (103) 99 06/05/19 00:00 3.0 06/05/19 00:00 Nasal Cannula 3.0 06/05/19 00:00 85 06/05/19 00:00 97.9 86 18 143/92 (109) 98 06/04/19 23:11 147/92 06/04/19 20:32 92 142/95 06/04/19 20:00 97.8 95 18 145/94 (111) 99 06/04/19 20:00 Nasal Cannula 3.0 06/04/19 20:00 3.0 06/04/19 20:00 88 06/04/19 19:11 92 20 98 Nasal Cannula 3.0 32 06/04/19 19:11 98 Nasal Cannula 3.0 32 06/04/19 17:36 154/83 06/04/19 16:00 3.0 06/04/19 16:00 Nasal Cannula 3.0 06/04/19 16:00 87 06/04/19 16:00 98.3 94 18 154/83 (106) 100 Intake and Output 06/04/19 06/05/19 19:00 07:00 Intake Total 800 ml Balance 800 ml Intake Oral 800 ml # Bowel Movements 4 Laboratory Tests 06/05/19 05:20: White Blood Count 6.7, Red Blood Count 2.86L, Hemoglobin 9.0L, Hematocrit 26.4L , Mean Corpuscular Volume 92, Mean Corpuscular Hemoglobin 31.5H, Mean Corpuscular Hemoglobin Concent 34.1, Red Cell Distribution Width 16.6H, Platelet Count 208, Mean Platelet Volume 7.1, Neutrophils (%) (Auto) 61.0, Lymphocytes (%) (Auto) 22.2, Monocytes (%) (Auto) 11.1H, Eosinophils (%) (Auto) 4.6H, Basophils (%) (Auto) 1.1, Sodium Level 132L, Potassium Level 5.3H, Chloride Level 94L, Carbon Dioxide Level 23, Anion Gap 15, Blood Urea Nitrogen 86H, Creatinine 9.7H, Estimat Glomerular Filtration Rate 6.9, Glucose Level 267H , Calcium Level 9.6, Total Bilirubin 0.4, Aspartate Amino Transf (AST/SGOT) 55H , Alanine Aminotransferase (ALT/SGPT) 186H, Alkaline Phosphatase 135H, Total Protein 7.8, Albumin 2.9L, Globulin 4.9, Albumin/Globulin Ratio 0.6L Current Medications Medications (Trade) Dose Ordered Sig/Felix Route PRN Reason Start Time Stop Time Status Last Admin Dose Admin Acetaminophen (Tylenol) 650 mg Q4H PRN ORAL Mild Pain (Pain Scale 1-3) 05/31/19 13:30 06/30/19 13:29 Acetaminophen/ Hydrocodone Bitart (Milmine 5/325) 1 tab Q4H PRN ORAL For Pain 05/31/19 13:30 06/07/19 13:29 06/04/19 05:38 Albuterol/ Ipratropium (Combivent Respimat) 2 puffs Q4H PRN INH Shortness of Breath 06/01/19 17:45 07/01/19 17:44 Amlodipine Besylate (Norvasc) 10 mg DAILY ORAL 06/01/19 09:00 07/01/19 08:59 06/04/19 08:56 Aspirin (Ecotrin) 81 mg DAILY ORAL 06/01/19 09:00 07/16/19 08:59 06/05/19 08:37 Carvedilol (Coreg) 6.25 mg EVERY 12 HOURS ORAL 06/05/19 09:00 07/04/19 12:44 Ceftriaxone Sodium 1 gm/ Dextrose 55 ml @ 110 mls/hr Q24H IVPB 06/01/19 12:00 06/06/19 23:59 06/05/19 12:17 Clonidine HCl (Catapres Tab) 0.1 mg Q6H PRN ORAL SBP > 180 05/31/19 23:00 08/29/19 22:59 05/31/19 23:57 Clopidogrel Bisulfate (Plavix) 75 mg DAILY ORAL 06/01/19 09:00 07/01/19 08:59 06/05/19 08:38 Dextrose (Dextrose 50%) 25 ml Q30M PRN IV Hypoglycemia 05/31/19 13:30 08/29/19 13:29 Dextrose (Dextrose 50%) 50 ml Q30M PRN IV Hypoglycemia 05/31/19 13:30 08/29/19 13:29 Diphenhydramine HCl (Benadryl) 25 mg Q6H PRN ORAL Itching/Pruritis 05/31/19 13:30 06/30/19 13:29 Heparin Sodium (Porcine) (Heparin 5000 units/ml) 5,000 units EVERY 12 HOURS SUBQ 05/31/19 21:00 07/15/19 20:59 06/04/19 20:30 Heparin Sodium (Porcine) (Heparin Sod 1000 units/ml 10ml) 2,000 unit ONCE PRN IV HD 06/05/19 06:00 06/05/19 23:59 Hydralazine HCl (Apresoline) 10 mg Q6HR ORAL 06/03/19 12:00 09/01/19 11:59 06/05/19 12:17 Hydralazine HCl (Apresoline) 25 mg Q6H PRN ORAL SBP>170 06/01/19 03:00 08/30/19 02:59 06/02/19 20:50 Insulin Aspart (NovoLOG) BEFORE MEALS AND HS SUBQ 05/31/19 16:30 08/29/19 16:29 06/05/19 12:22 Insulin Detemir (Levemir) 10 units DAILY SUBQ 06/01/19 09:00 08/30/19 08:59 06/05/19 08:51 Lorazepam (Ativan) 1 mg Q4H PRN ORAL For Anxiety 05/31/19 13:30 06/07/19 13:29 Losartan Potassium (Cozaar) 100 mg DAILY ORAL 06/01/19 09:00 07/01/19 08:59 06/04/19 08:55 Multivitamins Therapeutic (Therapeutic Multivitamin) 1 ea DAILY ORAL 06/01/19 09:00 07/01/19 08:59 06/05/19 08:37 Nitroglycerin (Ntg) 0.4 mg Q5M PRN SL Prn Chest Pain 05/31/19 13:30 06/30/19 13:29 Pantoprazole (Protonix) 40 mg BID ORAL 06/02/19 18:00 07/01/19 08:59 06/05/19 08:37 Pravastatin Sodium (Pravachol) 80 mg BEDTIME ORAL 05/31/19 21:00 06/30/19 20:59 06/04/19 20:31 Sevelamer Carbonate (Renvela) 1,600 mg THREE TIMES A DAY ORAL 06/04/19 18:00 09/02/19 17:59 06/05/19 12:17 Trazodone HCl (Desyrel) 50 mg BEDTIME ORAL 05/31/19 21:00 06/30/19 20:59 06/04/19 20:32 Jacinto Cisneros MD Jun 05, 2019 14:35
--- NOTE | 2019-06-05 15:36 | Nephrology Progress Note ---
Assessment/Plan Assessment 1) ESRD 2) Fluid overload/CHF 3) Doubt Covid-19 infection, however not impossible 4) hyperphosphatemia Plan: HD today as ordetred Renvela 1600 mg po TID with meals Subjective Subjective He is doing ok, Covid19 was negative seen on HD, tolerating it ok Objective Objective Last 24 Hour Vital Signs Date Time Temp Pulse Resp B/P (MAP) Pulse Ox O2 Delivery O2 Flow Rate FiO2 06/05/19 12:17 160/90 06/05/19 12:00 82 06/05/19 12:00 Room Air 06/05/19 11:57 97.8 83 12 153/100 (117) 100 06/05/19 08:30 97.6 76 14 150/90 (110) 99 06/05/19 08:00 81 06/05/19 08:00 2.0 06/05/19 08:00 Nasal Cannula 3.0 06/05/19 06:05 155/90 06/05/19 04:00 Nasal Cannula 3.0 06/05/19 04:00 3.0 06/05/19 04:00 80 06/05/19 04:00 97.6 72 18 132/88 (103) 99 06/05/19 00:00 3.0 06/05/19 00:00 Nasal Cannula 3.0 06/05/19 00:00 85 06/05/19 00:00 97.9 86 18 143/92 (109) 98 06/04/19 23:11 147/92 06/04/19 20:32 92 142/95 06/04/19 20:00 97.8 95 18 145/94 (111) 99 06/04/19 20:00 Nasal Cannula 3.0 06/04/19 20:00 3.0 06/04/19 20:00 88 06/04/19 19:11 92 20 98 Nasal Cannula 3.0 32 06/04/19 19:11 98 Nasal Cannula 3.0 32 06/04/19 17:36 154/83 06/04/19 16:00 3.0 06/04/19 16:00 Nasal Cannula 3.0 06/04/19 16:00 87 06/04/19 16:00 98.3 94 18 154/83 (106) 100 Intake and Output 06/04/19 06/05/19 19:00 07:00 Intake Total 800 ml Balance 800 ml Intake Oral 800 ml # Bowel Movements 4 Laboratory Tests 06/05/19 05:20: White Blood Count 6.7, Red Blood Count 2.86L, Hemoglobin 9.0L, Hematocrit 26.4L , Mean Corpuscular Volume 92, Mean Corpuscular Hemoglobin 31.5H, Mean Corpuscular Hemoglobin Concent 34.1, Red Cell Distribution Width 16.6H, Platelet Count 208, Mean Platelet Volume 7.1, Neutrophils (%) (Auto) 61.0, Lymphocytes (%) (Auto) 22.2, Monocytes (%) (Auto) 11.1H, Eosinophils (%) (Auto) 4.6H, Basophils (%) (Auto) 1.1, Sodium Level 132L, Potassium Level 5.3H, Chloride Level 94L, Carbon Dioxide Level 23, Anion Gap 15, Blood Urea Nitrogen 86H, Creatinine 9.7H, Estimat Glomerular Filtration Rate 6.9, Glucose Level 267H , Calcium Level 9.6, Total Bilirubin 0.4, Aspartate Amino Transf (AST/SGOT) 55H , Alanine Aminotransferase (ALT/SGPT) 186H, Alkaline Phosphatase 135H, Total Protein 7.8, Albumin 2.9L, Globulin 4.9, Albumin/Globulin Ratio 0.6L Height (Feet): 5 Height (Inches): 8.00 Weight (Pounds): 175 General Appearance: WD/WN, no apparent distress EENT: PERRL/EOMI Neck: non-tender, normal alignment Cardiovascular: normal peripheral pulses, normal rate Respiratory/Chest: crackles/rales Abdomen: non tender, soft, no organomegaly Extremities: other - L BKA 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
[2019-06-05] MEDS ORDERED: Albuterol/Ipratropium 3ml neb HHN PRN (15:45)
[2019-06-05 16:00] VITALS: BP 133/82
--- NOTE | 2019-06-05 18:15 | NUR ---
NURSE NOTES: Hemodialysis completed, 4 liters out. No complications noted from AV site.
--- NOTE | 2019-06-05 18:29 | NUR ---
NURSE NOTES: Gave report to Grecia at [facility].
--- NOTE | 2019-06-05 19:00 | NUR ---
NURSE NOTES: Received patient and report from MARLENY Mcginnis. Patient is observed resting in bed and remains alert and oriented x3-4. Pt is on RA, respirations remain even and unlabored and pt currently denies SOB. Pt noted to be SR on tele monitor with a current HR of 96 with no s/sx of acute distress. Pt currently denies pain. L Hand 20g IV catheter noted which remains asymptomatic, patent and intact. L AV shunt noted; bruit and thrill noted. Skin remains intact. Diagnostics reviewed. D/C pending, [facility] to arrive at approximately 20:00 Pt remains resting in bed; Bed remains in the lowest position with the safety wheels engaged, call light within reach, side rails up x3 and bed alarm activated. Will continue plan of care. Will continue to monitor.
--- NOTE | 2019-06-05 19:15 | NUR ---
HAND-OFF: Report given to MARLENY Johnson.
[2019-06-05 20:00] VITALS: BP 140/83
--- NOTE | 2019-06-05 20:19 | Cardiology Progress Note ---
Assessment/Plan Assessment/Plan 1. Acute on chronic HFpEF with mild pulmonary HTN, continue HD and afterload reduction. 2. Paroxysmal atrial tachycardia, resolved now SR at 80-90, continue to optimize coreg. 3. Diabetes mellitus. Consider aspirin, off statin due to high LFTs. 4. Hypertension, continue the current regimen. 5. End-stage renal disease. Subjective Subjective Sinus rhythm at rate of 89. Objective Last 24 Hour Vital Signs Date Time Temp Pulse Resp B/P (MAP) Pulse Ox O2 Delivery O2 Flow Rate FiO2 06/05/19 20:04 99 Nasal Cannula 3.0 32 06/05/19 20:04 89 20 99 Nasal Cannula 3.0 32 06/05/19 16:00 Room Air 06/05/19 16:00 97.5 85 15 133/82 (99) 95 06/05/19 16:00 85 06/05/19 12:17 160/90 06/05/19 12:00 82 06/05/19 12:00 Room Air 06/05/19 11:57 97.8 83 12 153/100 (117) 100 06/05/19 08:30 97.6 76 14 150/90 (110) 99 06/05/19 08:00 81 06/05/19 08:00 2.0 06/05/19 08:00 Nasal Cannula 3.0 06/05/19 06:05 155/90 06/05/19 04:00 Nasal Cannula 3.0 06/05/19 04:00 3.0 06/05/19 04:00 80 06/05/19 04:00 97.6 72 18 132/88 (103) 99 06/05/19 00:00 3.0 06/05/19 00:00 Nasal Cannula 3.0 06/05/19 00:00 85 06/05/19 00:00 97.9 86 18 143/92 (109) 98 06/04/19 23:11 147/92 06/04/19 20:32 92 142/95 Intake and Output 06/04/19 06/05/19 19:00 07:00 Intake Total 800 ml Balance 800 ml Intake Oral 800 ml # Bowel Movements 4 2D Echo: EF 55%, Pseudo-normal LV physiology, RVSP 37 mmHg, RAP 3, small Theresa. eff. Laboratory Tests Test 06/05/19 05:20 White Blood Count 6.7 K/UL (4.8-10.8) Red Blood Count 2.86 M/UL (4.70-6.10) L Hemoglobin 9.0 G/DL (14.2-18.0) L Hematocrit 26.4 % (42.0-52.0) L Mean Corpuscular Volume 92 FL (80-99) Mean Corpuscular Hemoglobin 31.5 PG (27.0-31.0) H Mean Corpuscular Hemoglobin Concent 34.1 G/DL (32.0-36.0) Red Cell Distribution Width 16.6 % (11.6-14.8) H Platelet Count 208 K/UL (150-450) Mean Platelet Volume 7.1 FL (6.5-10.1) Neutrophils (%) (Auto) 61.0 % (45.0-75.0) Lymphocytes (%) (Auto) 22.2 % (20.0-45.0) Monocytes (%) (Auto) 11.1 % (1.0-10.0) H Eosinophils (%) (Auto) 4.6 % (0.0-3.0) H Basophils (%) (Auto) 1.1 % (0.0-2.0) Sodium Level 132 MMOL/L (136-145) L Potassium Level 5.3 MMOL/L (3.5-5.1) H Chloride Level 94 MMOL/L (98-107) L Carbon Dioxide Level 23 MMOL/L (21-32) Anion Gap 15 mmol/L (5-15) Blood Urea Nitrogen 86 mg/dL (7-18) H Creatinine 9.7 MG/DL (0.55-1.30) H Estimat Glomerular Filtration Rate 6.9 mL/min (>60) Glucose Level 267 MG/DL (74-106) H Calcium Level 9.6 MG/DL (8.5-10.1) Total Bilirubin 0.4 MG/DL (0.2-1.0) Aspartate Amino Transf (AST/SGOT) 55 U/L (15-37) H Alanine Aminotransferase (ALT/SGPT) 186 U/L (12-78) H Alkaline Phosphatase 135 U/L (46-116) H Total Protein 7.8 G/DL (6.4-8.2) Albumin 2.9 G/DL (3.4-5.0) L Globulin 4.9 g/dL Albumin/Globulin Ratio 0.6 (1.0-2.7) L Objective HEENT: Atraumatic and normocephalic. Anicteric. Pupils are equal, round, and reactive to light and accommodation. Extraocular muscles intact. NECK: JVP is elevated about 12 to 15 cm. No carotid bruit. Carotid upstroke is 2+ bilaterally. CARDIOVASCULAR: Normal S1 and S2. Regular rate and rhythm. No murmurs, gallops, or rubs. PMI is at fourth intercostal space in the midclavicular line. LUNGS: On venturi-mask currently. Saturation 100%. Bibasilar crackles. ABDOMEN: Soft, nontender, and nondistended. No hepatosplenomegaly. Positive bowel sounds. EXTREMITIES: There is 1+ bilateral lower extremity edema. No evidence of cyanosis or clubbing. Lizandro Falcon MD Jun 05, 2019 20:19
--- NOTE | 2019-06-05 20:25 | NUR ---
INTER-FACILITY TRANSFER: Patient transferred to [facility], per Dr Bueno. Report given to Luan with [facility] unit #[id number]. Patient transferred with [facility]. Belongings verified upon transfer and given to patient. Discharge VS as follows BP 144/76 HR 108 RR 18 O2 Sat 99% Temp 97.7
[2019-06-05] MEDS ORDERED: Carvedilol 12.5mg tab ORAL SCH (21:00)
== END 2019-06-05 20:40 | DRG 640 ==
LOC: EDBD 08:57 → EMR 09:23 → 2W 09:44 → EDBEDREQ 12:00 → 2W 06-02 04:40
PROC: 5A09457 Assistance with Respiratory Ventilation, 24-96 Consecutive Hours, Continuous Positive Airway Pressure (ICD-10-PCS; principal; 2019-05-31)
PROC: 5A1D70Z Performance of Urinary Filtration, Intermittent, Less than 6 Hours Per Day (ICD-10-PCS; principal; 2019-05-31)
DX: E87.70 Fluid overload, unspecified (principal); N18.6 End stage renal disease; J96.01 Acute respiratory failure with hypoxia; I12.0 Hypertensive chronic kidney disease with stage 5 chronic kidney disease or end stage renal disease; I47.1 Supraventricular tachycardia; L97.829 Non-pressure chronic ulcer of other part of left lower leg with unspecified severity; Z79.4 Long term (current) use of insulin; T87.81 Dehiscence of amputation stump; Y83.8 Other surgical procedures as the cause of abnormal reaction of the patient, or of later complication, without mention of misadventure at the time of the procedure; E11.40 Type 2 diabetes mellitus with diabetic neuropathy, unspecified; E11.22 Type 2 diabetes mellitus with diabetic chronic kidney disease; K21.9 Gastro-esophageal reflux disease without esophagitis; I27.20 Pulmonary hypertension, unspecified; E83.39 Other disorders of phosphorus metabolism
CPT/HCPCS: 36415; 36600; 71045; 76700; 80048; 80053; 80061; 82270; 82607; 82728; 82746; 82803; 82962; 82977; 83036; 83540; 83550; 83605; 83690; 83735; 83880; 84100; 84484; 84550; 85007; 85025; 86140; 86705; 86706; 86709; 86710; 86803; 87070; 87081; 87205; 87340; 93005; 93306; 94640; 94660; 94664; 99291; J1815; J7620; S5561